=== PATIENT | male | born 1950 | race Caucasian/White ===

== ENCOUNTER 2017-04-28 09:31 | Inpatient (IN) | payer OTHER, MEDICARE ==
[~2017-04-28] VITALS: Ht 177.8 cm; Wt 81.6 kg
[~2017-04-28 09:31] MED LIST: ACIDOPHILUS1 CAP PO; AMARYL2 M1 PO; ASPIRIN EC81 M1 PO; ATIVAN0.5 M1 PO; ATORVASTATIN CA10 MG PO; COLACE100 MG PO; PERCOCET 325 MG1 TA2 PO; PERCOCET 5-3251 EACH PO; PLAVIX 75MG TAB75 MG PO; SERTRALINE HYDR50 MG PO; VANCOMYCIN HC1000 MG
--- NOTE | 2017-04-28 09:49 | NUR ---
GERALD FROM HOME, CALLED 911 THIS AM, PT "WAS NOT ACTING RIGHT". PER EMS/ PT WAS ACTING STRANGE SINCE LAST NIGHT, SLEPT IN A DIFFERENT BEDROOM LAST NIGHT, THIS AM WAS SITTING UP ON BED STATING HE WAS WAITING FOR THE TARIFF CLERK. ACCUCHECK: ENROUTE 175. PT ARRIVES AWAKE, ALERT, ORIENTED TO NAME INITIALLY, BUT WAS THEN ABLE TO STATE HE WAS AT [facility] AND WHO THE CURRENT PRESENT AND DATE.
--- NOTE | 2017-04-28 09:56 | NUR ---
PT TO XRAY AT THIS TIME.
--- NOTE | 2017-04-28 09:57 | ED AMS/SEIZURE/WEAK/DIZZY ---
History of Present Illness General Chief Complaint: Altered Mental Status Stated Complaint: BIBA AMS Source: patient, family, old records, EMS Exam Limitations: no limitations Vital Signs & Intake/Output Vital Signs & Intake/Output Vital Signs Date Time Temp Pulse Resp B/P B/P Pulse O2 O2 Flow FiO2 Mean Ox Delivery Rate 04/28 1409 96.7 58 18 128/61 98 Room Air Room Air 04/28 1327 97.6 72 18 128/64 94 Room Air 04/28 0946 98 Room Air Room Air 04/28 0939 96.7 53 20 120/57 95 Room Air Room Air Allergies Coded Allergies: shellfish derived (UNKNOWN 07/22/16) Reconcile Medications Amlodipine (Norvasc) 2.5 MG TABLET 1 TAB PO DAILY BP (Reported) Ascorbate Calcium (Vitamin C) 500 MG TABLET 500 MG PO DAILY SUPPLEMENT ( Reported) Aspirin (Ecotrin*) 325 MG TABLET.DR 1 TAB PO DAILY HEART/BLOOD (Reported) Atorvastatin Calcium (Lipitor) 80 MG TABLET 1 TAB PO DAILY CHOLESTEROL ( Reported) Clopidogrel Bisulfate (Plavix) 75 MG TABLET 1 TAB PO DAILY BLOOD THINNER ( Reported) Cyanocobalamin (Vitamin B-12) 1,000 MCG TABLET 1 TAB PO DAILY SUPPLEMENT ( Reported) Cyclobenzaprine HCl 5 MG TABLET 5 MG PO DAILY MUSCLE RELAX (Reported) Ergocalciferol (Vitamin D2) (Vitamin D2) 50,000 UNIT CAPSULE 1 TAB PO QSUN SUPPLEMENT (Reported) Ezetimibe (Zetia) 10 MG TABLET 10 MG PO DAILY CHOLESTEROL (Reported) Ferrous Sulfate 325 MG (65 MG IRON) TABLET 1 TAB PO BID SUPPLEMENT (Reported) Furosemide 40 MG TABLET 20 MG PO DAILY HEART/CHF (Reported) Glimepiride (Amaryl) 2 MG TABLET 1.5 TAB PO DAILY DM (Reported) Lisinopril 2.5 MG TABLET 2.5 MG PO DAILY HEART (Reported) Lorazepam (Ativan) 0.5 MG TABLET 1 TAB PO BID ANXIETY (Reported) Metoprolol Tartrate 25 MG TABLET 25 MG PO DAILY HTN (Reported) Sertraline HCl 50 MG TABLET 50 MG PO DAILY DEPRESSION (Reported) Triage Note: GERALD FROM HOME, CALLED 911 THIS AM, PT "WAS NOT ACTING RIGHT". 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 ACCUCHECK: ENROUTE 175. PT ARRIVES AWAKE, ALERT, ORIENTED TO NAME INITIALLY, BUT WAS THEN ABLE TO STATE [facility] AND WHO THE CURRENT PRESENT AND DATE. Triage Nurses Notes Reviewed? yes Onset: Abrupt Duration: day(s): (1), continues in ED Timing: single episode today Injury Environment: home Severity: moderate, severe Severity Numbers: 7 No Modifying Factors: none Associated Symptoms: RIGHT SHOUDLER PAIN HPI: 66-year-old male the past medical history of muw-[id number] diabetes, cad , presents for evaluation of altered mental status. Patient was seen here proximally 10 days ago after a fall where he hit his head. Patient does take Plavix. Since the fall is been complaining of pain in his right shoulder that is worse with movement. He has not been taking any medicine for the pain. He rates the pain as a 10 out of 10. His states that since last night he's been acting "strangely". says that patient slept in a different room than usual last night and when he woke up this morning he was sitting on the edge of the bed asking for the "senior construction manager" which does not make any sense to the . Patient denies feeling confusion his only complaint is the pain in his right shoulder. He denies any chest pain, shortness of breath, abdominal pain, nausea , vomiting, diarrhea, memory loss or any other associated symptoms. Patient's reports that the patient had seen Isiah Hernandez MD related to his right shoulder last week. His errand runner is Dr. Naveen Che out of [place]. (CRISSY HOSKINS PA-C) Past History Travel History Traveled to [place] past 21 day No Medical History Any Pertinent Medical History? see below for history Neurological: GAIT ABDNORMALITY WEAKNESS Musculoskeletal: CHRONIC OSTEOMYLITIS Endocrine: diabetes Tetanus Vaccine: 04/20/17 Surgical History Surgical History: none Psychosocial History Who do you live with Spouse Services at Home Nursing What is your primary language Pakistani Tobacco Use: Quit >30 days ago ETOH Use: alcoholic, QUIT 3 YEARS AGO Illicit Drug Use: denies illicit drug use Family History Hx Contributory? No (CRISSY HOSKINS PA-C) Review of Systems Review of Systems Constitutional: Reports: no symptoms. EENTM: Reports: no symptoms. Respiratory: Reports: no symptoms. Cardiovascular: Reports: no symptoms. GI: Reports: no symptoms. Genitourinary: Reports: no symptoms. Musculoskeletal: Reports: back pain, joint pain, joint swelling, muscle pain. Skin: Reports: no symptoms. Neurological/Psychological: Reports: no symptoms. Hematologic/Endocrine: Reports: no symptoms. Immunologic/Allergic: Reports: no symptoms. All Other Systems: Reviewed and Negative (AIDEE FAUST,CRISSY) Physical Exam Physical Exam General Appearance: well developed/nourished, no apparent distress, alert, awake , anxious Extremities: evidence of injury, limited range of motion, right shoudler: there are superfical abrasions loctaed on the posterior rt scapula. rom of the rt shoulder is reduced due to pain. pain with palpation of ac joint. neurovascular supply to the rt arm is intact. Comments: General: Hemodynamically stable. Afebrile. Well-developed well-nourished person in no acute distress. Head: Atraumatic, normocephalic Eyes: EOMI bilaterally, PERRLA, conjunctiva are not injected, no discharge, no nystagmus, fundus grossly normal bilaterally Nose: Atraumatic, no rhinorrhea, mucosa is not erythematous, no epistaxis. Sinuses are non-tender Ears: TM pearly herrmann color bilaterally, external canal is clear, no discharge, hearing is normal Mouth: Appropriate dentition, no gingival bleeding, moist mucus membranes, no oral lesions, tonsils not erythematous or enlarged and free of exudate. Uvula rises midline. Neck: Supple, full active ROM, no lymphadenopathy, no midline tenderness to palpation, no thyromegaly, no tracheal deviation. Back: Non-tender, full active ROM, no scoliosis, no CVA tenderness Cardiovascular: regular rate and rhythm, no murmurs, rubs, or gallops. No JVD Respiratory: Chest is nontender. Regular respiratory rate and effort. No accessory muscle use. Lungs clear to auscultation bilaterally. Abdomen: Soft, non-tender, non-distended, no organomegaly. No rebound tenderness or guarding. Normoactive bowel sounds. Neuro: No confusion. Motor and sensory function is intact. Appropriate gait. Cerebellar function intact. Skin: Warm and dry. Appropriate turgor. No lesions or bruising. No appreciable rash on exposed skin. Core Measures ACS in differential dx? Yes ASA ordered for poss ACS? Yes-ordered CVA/TIA Diagnosis: No Severe Sepsis Present: No Septic Shock Present: No (CRISSY HOSKINS PA-C) Progress Differential Diagnosis: arrythmia, anemia, benign positional vertigo, CVA/stroke , dehydration, drug intoxication, electrolyte imbalance, intracranial Hem., intracranial mass/tumor, migraine BECK, pneumonia, postural hypotension, presyncope, post-traumatic vertigo, sepsis, subarachnoid Hem., UTI/pyelo Plan of Care: Orders Procedure Date/time Status CULTURE,URINE 04/28 1513 Active BLOOD CULTURE 04/28 1513 Active US-EXT BILAT VENOUS DOPPLER 04/28 1508 Active Patient Data 04/28 1333 Active TROPONIN LEVEL 04/28 1331 Complete AMMONIA 04/28 1212 Complete Admit to inpatient 04/28 1202 Active Telemetry/Colorist 04/28 1202 Active MAGNESIUM 04/28 1030 Complete URINALYSIS 04/28 0950 Complete TROPONIN LEVEL 04/28 0950 Complete PARTIAL THROMBOPLASTIN TIME 04/28 0950 Complete PROTHROMBIN TIME 04/28 0950 Complete C-REACTIVE PROTEIN 04/28 0950 Complete COMPREHENSIVE METABOLIC PANEL 04/28 0950 Complete CBC WITHOUT DIFFERENTIAL 04/28 0950 Complete B-TYPE NATRIURETIC PEP (BNP) 04/28 0950 Complete EKG 04/28 0950 Active Current Medications Sig/Salome Start time Last Medication Dose Stop Time Status Admin Sodium Polystyrene 60 ML ONCE ONE 04/28 1515 AC Sulfonate 04/28 1516 (Kayexalate) Laboratory Tests 04/28/17 1400: Urine Color YEL, Urine Clarity CLEAR, Urine pH 5.5, Ur Specific [place] 1.025, Urine Protein TRACE H, Urine Ketones NEG, Urine Nitrite NEG, Urine Bilirubin NEG, Urine Urobilinogen 0.2, Ur Leukocyte Esterase NEG, Ur Microscopic SEDIMENT EXAMINED, Urine WBC 1-3 H, Urine Mucus FEW, Urine Hemoglobin NEG, Urine Glucose NEG 04/28/17 1337: Troponin I 0.76 *H 04/28/17 1223: Ammonia 10 04/28/17 1030: Anion Gap 14, Estimated GFR 24 L, BUN/Creatinine Ratio 28.5 H, Glucose 123 H, Calcium 9.4, Magnesium 2.7 H, Total Bilirubin 0.6, AST 14 L, ALT 30, Alkaline Phosphatase 71, Troponin I 0.73 *H, C-Reactive Prot, Quant 3.1 H, Pro-B- Natriuretic Pept 78975 H, Total Protein 7.7, Albumin 4.3, Globulin 3.4, Albumin /Globulin Ratio 1.3, CBC w Diff NO MAN DIFF REQ, RBC 3.12 L, MCV 90.8, MCH 28.9 , RDW 19.6 H, MPV 8.1, Gran % 80.7 H, Lymphocytes % 7.4 L, Monocytes % 9.1, Eosinophils % 2.5, Basophils % 0.3, Absolute Granulocytes 6.4, Absolute Lymphocytes 0.6 L, Absolute Monocytes 0.7 H, Absolute Eosinophils 0.2, Absolute Basophils 0, PUBS MCHC 31.8 L 04/28/17 0950: PT 14.5 H, INR 1.39 H, APTT 35 Microbiology 04/28 1513 URINE ROUT: Urine Culture - ORD 04/28 151 BLOOD: Blood Culture - ORD 04/28 151 BLOOD: Blood Culture - ORD 10 AM: Patient seen and evaluated. he is complaining of pain in his right shoulder. There are healing abrasions and swelling to the right shoulder. Range of motion is limited due to pain. He is neurologically intact and alert and oriented to person place time. Patient will have a workup for altered mental status including chest x-ray, urinalysis basic blood work EKG. He will also have another scan of his head to rule out a delayed bleed. Patient will be monitored and we will follow up on results. 11:30 AM: Troponin back is elevated 2.73 BNP elevated to 31,000. He also has worsening renal failure with a creatinine of 2.7 increased from 1.9. Spoke with Dr. Duarte who is on-call for Dr. Rodrigues who said that the patient should be admitted to the hospitalist or whoever is on-call for the ICU. Patient has a errand runner out of [place]. Called front office administrator errand runner Dr. English for recommendations. Patient was given a dose of aspirin and Plavix. These are in his home medications but he has not yet taken them today. X-ray of the shoulder shows a cortical fracture of the acromion see on y view only. 12 AM: Spoke with Dr. English he will consult on the patient when he is admitted. Dr. siddiqui will call Gurinder Aj MD who is on-call for the ICU. (AIDEE FAUST,CRISSY) Diagnostic Imaging: Viewed by Me: Radiology Read, CT Scan. Discussed w/RAD: Radiology Read, CT Scan. Radiology Impression: PATIENT: VONNIE BUSTAMANTE PRESENT AGE: 66 PATIENT ACCOUNT NO: [id number] : 50 LOCATION: [facility] ORDERING PHYSICIAN: CRISSY HOSKINS PA-C SERVICE DATE: 04/28/17 EXAM TYPE: RAD - XRY- CHEST XRAY, PA AND LATERAL; XRY-SHOULDER COMPLETE-RIGHT EXAMINATION: XR SHOULDER , RIGHT XR CHEST CLINICAL INFORMATION: Right shoulder pain after fall one to 2 weeks ago. Cough with altered mental status. COMPARISON: Shoulder radiographs . Chest radiograph 11/24/2011. TECHNIQUE: AP and lateral views of the chest. 4 views of the right shoulder. FINDINGS: Chest: The lungs are well expanded. There is a hazy opacity throughout much of the right lung. This is more focal at the right base. There is a small right pleural effusion noted. The left lung is clear. No pneumothorax. The cardiomediastinal silhouette is mildly prominent. Degenerative changes of the spine. Likely chronic healed posterior right rib fractures. Right shoulder: Radiopaque anchors are seen in the right humeral head. No acute fracture or dislocation. Superior positioning of the humeral head in relation to the glenoid with narrowing of subacromial space suggests chronic rotator cuff disease. Likely postsurgical changes at the acromioclavicular joint. There is minimal osseous fragmentation noted at the base of the acromion, seen on the scapular Y view only. This raises suspicion for a fracture. IMPRESSION: 1. Probable cortical fracture at the base of the acromion, seen on the scapular Y view only. 2. Small right pleural effusion with basilar opacity. Initial ED EKG: normal sinus rhythm, first degree av bloack, lbbb Comments: PATIENT: VONNIE BUSTAMANTE PRESENT AGE: 66 PATIENT ACCOUNT NO: [id number] : 50 LOCATION: [facility] ORDERING PHYSICIAN: CRISSY HOSKINS PA-C SERVICE DATE: 04/28/171001 EXAM TYPE: CAT - CT HEAD WO IV CONTRAST EXAMINATION: CT HEAD WITHOUT CONTRAST CLINICAL INFORMATION: Fall 2010 days ago. On Plavix. Altered mental status. COMPARISON: 04/19/2017 TECHNIQUE: Contiguous axial imaging was performed from the skull base to vertex without intravenous contrast. DLP: 954 mGy-cm. FINDINGS: Motion limited study. There is no evidence of acute intracranial hemorrhage or territorial infarction. No abnormal mass effect or midline shift is seen. Herrmann to white matter differentiation is well preserved. No extra-axial fluid collections are identified. No hydrocephalus. Proportional prominence of the ventricles and sulcal spaces is consistent with mild volume loss. Patchy periventricular and deep white matter hypoattenuation is consistent with mild small vessel ischemic changes. No acute osseous or soft tissue abnormality. There is chronic depression of the left lamina papyracea.. The mastoid air cells and visualized portions of the paranasal sinuses are well aerated. IMPRESSION: No acute intracranial pathology. DICTATED BY: HA LYNN MD DATE/TIME DICTATED:04/28/171026 EARTH MOVING TECHNICIAN:JUHI DATE/TIME TRANSCRIBED:04/28/171026 CONFIDENTIAL, DO NOT COPY WITHOUT APPROPRIATE AUTHORIZATION. <Electronically signed in Other Vendor System> SIGNED BY: HA LYNN MD 04/28 1033 (CRISSY HOSKINS PA-C) Departure Departure Disposition: STILL A PATIENT Condition: Stable Clinical Impression Primary Impression: NSTEMI (non-ST elevated myocardial infarction) Referrals: MARY ALICE LUND MD (PCP/Family) Departure Forms: Customer Survey General Discharge Information Admission Note Spoke With: GURINDER AJ MD Documentation of Exam: Documentation of any treatments & extenuating circumstances including Concerns Regarding Discharge (functional status, medication knowledge or non-compliance, living conditions, etc.) that warrant an admission rather than observation: [ Cardiology consult, telemetry monitoring, monitoring of vital signs, serial labs , echocardiogram, IV heparin, medication adjustment, orthopedic consult,] (CRISSY HOSKINS PA-C) PA/SQL SERVER DBA DEVELOPER Co-Sign Statement Statement: ED Attending supervision documentation- x I saw and evaluated the patient. I have also reviewed all the pertinent lab results and diagnostic results. I agree with the findings and the plan of care as documented in the PA's/SQL SERVER DBA DEVELOPER's documentation. [] I have reviewed the ED Record and agree with the PA's/SQL SERVER DBA DEVELOPER's documentation. [] Additions or exceptions (if any) to the PAs/SQL SERVER DBA DEVELOPER's note and plan are summarized below: [] (NEGRO BROWN,MIRIAN)
--- NOTE | 2017-04-28 10:15 | NUR ---
PT [facility] IN RADIOLOGY FOR CXR AND CT.
--- NOTE | 2017-04-28 10:30 | RADIOLOGY REPORT ---
EXAMINATION: XR SHOULDER, RIGHT XR CHEST CLINICAL INFORMATION: Right shoulder pain after fall one to 2 weeks ago. Cough with altered mental status. COMPARISON: Shoulder radiographs 04/19/2017. Chest radiograph 11/24/2011. TECHNIQUE: AP and lateral views of the chest. 4 views of the right shoulder. FINDINGS: Chest: The lungs are well expanded. There is a hazy opacity throughout much of the right lung. This is more focal at the right base. There is a small right pleural effusion noted. The left lung is clear. No pneumothorax. The cardiomediastinal silhouette is mildly prominent. Degenerative changes of the spine. Likely chronic healed posterior right rib fractures. Right shoulder: Radiopaque anchors are seen in the right humeral head. No acute fracture or dislocation. Superior positioning of the humeral head in relation to the glenoid with narrowing of subacromial space suggests chronic rotator cuff disease. Likely postsurgical changes at the acromioclavicular joint. There is minimal osseous fragmentation noted at the base of the acromion, seen on the scapular Y view only. This raises suspicion for a fracture. IMPRESSION: 1. Probable cortical fracture at the base of the acromion, seen on the scapular Y view only. 2. Small right pleural effusion with basilar opacity.
--- NOTE | 2017-04-28 10:33 | CT SCAN REPORT ---
EXAMINATION: CT HEAD WITHOUT CONTRAST CLINICAL INFORMATION: Fall 2010 days ago. On Plavix. Altered mental status. COMPARISON: 04/19/2017 TECHNIQUE: Contiguous axial imaging was performed from the skull base to vertex without intravenous contrast. DLP: 954 mGy-cm. FINDINGS: Motion limited study. There is no evidence of acute intracranial hemorrhage or territorial infarction. No abnormal mass effect or midline shift is seen. Herrmann to white matter differentiation is well preserved. No extra-axial fluid collections are identified. No hydrocephalus. Proportional prominence of the ventricles and sulcal spaces is consistent with mild volume loss. Patchy periventricular and deep white matter hypoattenuation is consistent with mild small vessel ischemic changes. No acute osseous or soft tissue abnormality. There is chronic depression of the left lamina papyracea.. The mastoid air cells and visualized portions of the paranasal sinuses are well aerated. IMPRESSION: No acute intracranial pathology.
--- NOTE | 2017-04-28 10:40 | NUR ---
RETURNS TO ROOM FROM RADIOLOGY, REMAINS AWAKE, ALERT, ORIENTED CALM AND COOPERATIVE. REPEAT ACCUCHECK: 151, BLOODWORK SST,LAV,BLUE,TAMAYO AND PINK TOP TUBES SENT TO LAB. PT AWARE OF NEED FOR URINE SPECIMEN WHEN ABLE TO PROVIDE, CALL LIGHT WITHIN REACH, URINAL WITHIN REACH.
[2017-04-28 10:41] LABS: ABSOLUTE BASOPHIL COUNT 0 /CUMM (0.0-0.2); ABSOLUTE EOSINOPHIL COUNT 0.2 /CUMM (0.0-0.7); ABSOLUTE GRANULOCYTE CT 6.4 /CUMM (1.4-6.5); ABSOLUTE LYMPH COUNT 0.6 /CUMM (1.2-3.4); ABSOLUTE MONOCYTE COUNT 0.7 /CUMM (0.10-0.60); BASOPHIL % 0.3 % (0.0-2.0); EOSINOPHIL % 2.5 % (0-5); GRANULOCYTE % 80.7 % (42.2-75.2); HEMATOCRIT 28.4 % (42-52); MEAN CORPUSCULAR HGB 28.9 PG (27.0-31.0); MEAN CORPUSCULAR HGB CONC 31.8 G/DL (33.0-37.0); MEAN CORPUSCULAR VOLUME 90.8 FL (80.0-94.0); MEAN PLATELET VOLUME 8.1 FL (7.4-10.4); PLATELET COUNT 200 /CUMM (130-400); RBC DISTRIBUTION WIDTH 19.6 % (11.5-14.5); RED BLOOD CELL CT 3.12 /CUMM (4.70-6.10)
[2017-04-28] MEDS ORDERED: FUROSEMIDE40 M1 PO (10:53)
[2017-04-28] MEDS ORDERED: LISINOPRIL2.5 M1 PO (10:53)
[2017-04-28] MEDS ORDERED: METOPROLOL TART25 M1 PO (10:54)
[2017-04-28] MEDS ORDERED: SERTRALINE HCL50 MG PO (10:55)
[2017-04-28] MEDS ORDERED: CYCLOBENZAPRINE5 M2 PO (10:57)
[2017-04-28] MEDS ORDERED: ZETIA10 M1 PO (10:59)
[2017-04-28] MEDS ORDERED: VITAMIN D250000 UNIT PO (10:59)
[2017-04-28] MEDS ORDERED: FERROUS SULFAT325 M3 PO (11:02)
[2017-04-28] MEDS ORDERED: VITAMIN C500 M6 PO (11:03)
[2017-04-28] MEDS ORDERED: VITAMIN B122500 MC2 PO (11:06)
--- NOTE | 2017-04-28 11:14 | NUR ---
MED LIST UPDATED PER WRITTEN MED LIST PROVIDED BY .
--- NOTE | 2017-04-28 11:20 | NUR ---
CRITICAL TEST RESULTS [id number] VONNIE BUSTAMANTE 66 M TESTS AND RESULTS: TROPONIN: 0.73 Results received and read back by: ERNST LANDRY Results received date and time: 04/28/17 1120 The following provider was notified of the results, and read the results back: DR TOM Notified date and time: 04/28/17 at 1120
--- NOTE | 2017-04-28 11:21 | NUR ---
TROPONIN 0.73 REPORTED TO CRISSY GALLEGOS AND DR TOM.
--- NOTE | 2017-04-28 11:47 | NUR ---
MED WITH ASPIRIN 325MG PO AND PLAVIX 75MG PO, TOLERATED VERY WELL. PT CONTINUES TO DENY CHEST PAIN OR SOB. NAPPING COMFORTABLY AT THIS TIME.
[2017-04-28] MEDS ORDERED: ASPIRIN EC325 M2 PO (11:51)
[2017-04-28] MEDS ORDERED: VITAMIN B-121000 MC3 PO (11:52)
[2017-04-28] MEDS ORDERED: LIPITOR80 M1 PO (11:52)
[2017-04-28] MEDS ORDERED: PLAVIX75 M1 PO (11:52)
[2017-04-28] MEDS ORDERED: NORVASC2.5 M1 PO (11:57)
[2017-04-28 12:20] LABS: PT 14.5 SEC (9.4-12.5); PTT 35 SEC (25-37)
--- NOTE | 2017-04-28 12:25 | NUR ---
AMMONIA DRAWN AND SENT BY THIS [facility]
--- NOTE | 2017-04-28 13:00 | NUR ---
PT SLEEPING, EASILY AROUSABLE. PT CONTINUES TO DENY CHEST PAIN, NO COMPLAINTS AT THIS TIME.
--- NOTE | 2017-04-28 13:38 | NUR ---
REPEAT SST DRAWN AND SENT BY THIS [facility].
--- NOTE | 2017-04-28 14:34 | NUR ---
CRITICAL TEST RESULTS [id number] VONNIE BUSTAMANTE 66 M TESTS AND RESULTS: TROPONIN: 0.76 Results received and read back by: ERNST LANDRY Results received date and time: 04/28/17 1434 The following provider was notified of the results, and read the results back: DR TOM Notified date and time: 04/28/17 at 1434
--- NOTE | 2017-04-28 14:59 | NUR ---
REPORT GIVEN TO JOSE GILLETTE.
--- NOTE | 2017-04-28 16:02 | History & Physical ---
ROB BERGERON 04/28/17 1542: General Information and HPI Source of Information: patient, family Exam Limitations: confusion History of Present Illness: He is 66-year-old man with PMH of type 2 diabetes, hypertension, dyslipidemia, peripheral vascular disease status post lower extremity bypass status post amputation of the all toes of left foot and 4 toes of right foot, coronary artery disease s/p stent , nephrolithiasis status post ESWL in June 2010, history of osteomyelitis of the right foot, Staph bactremia 2/2 right middle finger osteomyelitis, history of heavy alcohol abuse, frequent falls, CKD, recent mechanical fall 1 week ago resulting in right shoulder injury, history of colonic polyps and iron deficiency anemia. HE was BIBA from home and his noticed that patient is confused this morning. 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 got concerned and called 911. Upon arrival to ER his temperature was 96.7, pulse 53, respiratory rate 20, blood pressure 120/57 oxygen saturation 95% on room air. Per ER notes patient was awake, alert and oriented. Accu-Chek was 151. His labs are significant for H&H 9/28.4, potassium 5.9, chloride 112, bicarbonate 17, BUN 77, creatinine 2.7 (baseline 1.7), troponins 0.73, CRP 3.1, proBNP 19751 , INR 1.39. CXR and shoulder x-ray showed right acromial fracture and small right pleural effusion. CT head was normal. EKG showed right bundle branch block with first-degree AV block. In ER patient was given aspirin and Plavix. Upon my evaluation patient was confused. He was complaining of right shoulder pain but denies any chest pain or discomfort, dizziness or lightheadedness, palpitations, nausea, vomiting, abdominal pain, any change in urinary or bowel habits. was at bedside. According to patient has some problems walking because of amputated toes. He had a mechanical fall 1 week ago and got some bruises on his right shoulder and abrasions on both legs. Patient smokes 1 pack per day since age of 15. Stopped drinking alcohol 3 years ago. Denies using any illicit drugs. He is on disability. Lives with his . Allergies/Medications Allergies: Coded Allergies: shellfish derived (UNKNOWN 07/22/16) Home Med list Amlodipine (Norvasc) 2.5 MG TABLET 1 TAB PO DAILY BP (Reported) Ascorbate Calcium (Vitamin C) 500 MG TABLET 500 MG PO DAILY SUPPLEMENT ( Reported) Aspirin (Ecotrin*) 325 MG TABLET.DR 1 TAB PO DAILY HEART/BLOOD (Reported) Atorvastatin Calcium (Lipitor) 80 MG TABLET 1 TAB PO DAILY CHOLESTEROL ( Reported) Clopidogrel Bisulfate (Plavix) 75 MG TABLET 1 TAB PO DAILY BLOOD THINNER ( Reported) Cyanocobalamin (Vitamin B-12) 1,000 MCG TABLET 1 TAB PO DAILY SUPPLEMENT ( Reported) Cyclobenzaprine HCl 5 MG TABLET 5 MG PO DAILY MUSCLE RELAX (Reported) Ergocalciferol (Vitamin D2) (Vitamin D2) 50,000 UNIT CAPSULE 1 TAB PO QSUN SUPPLEMENT (Reported) Ezetimibe (Zetia) 10 MG TABLET 10 MG PO DAILY CHOLESTEROL (Reported) Ferrous Sulfate 325 MG (65 MG IRON) TABLET 1 TAB PO BID SUPPLEMENT (Reported) Furosemide 40 MG TABLET 20 MG PO DAILY HEART/CHF (Reported) Glimepiride (Amaryl) 2 MG TABLET 1.5 TAB PO DAILY DM (Reported) Lisinopril 2.5 MG TABLET 2.5 MG PO DAILY HEART (Reported) Lorazepam (Ativan) 0.5 MG TABLET 1 TAB PO BID ANXIETY (Reported) Metoprolol Tartrate 25 MG TABLET 25 MG PO DAILY HTN (Reported) Sertraline HCl 50 MG TABLET 50 MG PO DAILY DEPRESSION (Reported) Past History Travel History Traveled to [place] past 21 day No Medical History Neurological: GAIT ABDNORMALITY WEAKNESS Musculoskeletal: CHRONIC OSTEOMYLITIS Endocrine: diabetes Tetanus Vaccine: 04/20/17 Surgical History Surgical History: hernia repair-inguinal, right shoulddr sx Past Family/Social History Family History Relations & Conditions if any FATHER (CAD). MOTHER (Pancreatic cancer). BROTHER (HTN). Psychosocial History Who Do You Live With? spouse Services at Home: Nursing Smoking Status: Current Everyday Smoker ETOH Use: alcoholic, QUIT 3 YEARS AGO Illicit Drug Use: denies illicit drug use Review of Systems Review of Systems Constitutional: Reports: see HPI. Exam & Diagnostic Data Last 24 Hrs of Vital Signs/I&O Vital Signs Date Time Temp Pulse Resp B/P B/P Pulse O2 O2 Flow FiO2 Mean Ox Delivery Rate 04/28 1409 96.7 58 18 128/61 98 Room Air Room Air 04/28 1327 97.6 72 18 128/64 94 Room Air 04/28 0946 98 Room Air Room Air 04/28 0939 96.7 53 20 120/57 95 Room Air Room Air Intake & Output 04/28 1600 04/28 0800 04/28 0000 Intake Total 100 Output Total 350 Balance -250 Intake, Oral 100 Output, Urine 350 Patient 176 lb Weight Weight Reported by Patient Measurement Method Physical Exam General Appearance Alert, Cooperative, No Acute Distress, confused Skin right shoulder bruises HEENT dry mucous membrabes Cardiovascular Regular Rate, systolic murmur Lungs right basal crackles Abdomen Normal Bowel Sounds, Soft, No Tenderness Neurological Normal Speech, Strength at 5/5 X4 Ext, Sensation Intact, Cranial Nerves 3-12 NL Extremities b/l toe amputation, B/L lower ext swelling 1+, abrasions on both knees L>R. left LE is warm and slightly tender. +ve erythema. Right leg with slight vasculitic rash. Last 24 Hrs of Labs/Sadi: Laboratory Tests 04/28/17 1400: Urine Color YEL, Urine Clarity CLEAR, Urine pH 5.5, Ur Specific [place] 1.025, Urine Protein TRACE H, Urine Ketones NEG, Urine Nitrite NEG, Urine Bilirubin NEG, Urine Urobilinogen 0.2, Ur Leukocyte Esterase NEG, Ur Microscopic SEDIMENT EXAMINED, Urine WBC 1-3 H, Urine Mucus FEW, Urine Hemoglobin NEG, Urine Glucose NEG 04/28/17 1337: Troponin I 0.76 *H 04/28/17 1223: Ammonia 10 04/28/17 1030: Anion Gap 14, Estimated GFR 24 L, BUN/Creatinine Ratio 28.5 H, Glucose 123 H, Calcium 9.4, Magnesium 2.7 H, Total Bilirubin 0.6, AST 14 L, ALT 30, Alkaline Phosphatase 71, Troponin I 0.73 *H, C-Reactive Prot, Quant 3.1 H, Pro-B- Natriuretic Pept 65080 H, Total Protein 7.7, Albumin 4.3, Globulin 3.4, Albumin /Globulin Ratio 1.3, CBC w Diff NO MAN DIFF REQ, RBC 3.12 L, MCV 90.8, MCH 28.9 , RDW 19.6 H, MPV 8.1, Gran % 80.7 H, Lymphocytes % 7.4 L, Monocytes % 9.1, Eosinophils % 2.5, Basophils % 0.3, Absolute Granulocytes 6.4, Absolute Lymphocytes 0.6 L, Absolute Monocytes 0.7 H, Absolute Eosinophils 0.2, Absolute Basophils 0, PUBS MCHC 31.8 L 04/28/17 0950: PT 14.5 H, INR 1.39 H, APTT 35 Microbiology 04/28 151 URINE ROUT: Urine Culture - ORD 04/28 151 BLOOD: Blood Culture - ORD 04/28 151 BLOOD: Blood Culture - ORD Assessment/Plan Assessment: He is 66-year-old man with PMH of type 2 diabetes, hypertension, dyslipidemia, peripheral vascular disease status post lower extremity bypass status post amputation of the all toes of left foot and 4 toes of right foot, coronary artery disease s/p stent , nephrolithiasis status post ESWL in June 2010, history of osteomyelitis of the right foot, Staph bactremia 2/2 right middle finger osteomyelitis, history of heavy alcohol abuse, frequent falls, recent mechanical fall 1 week ago resulting in right shoulder injury, history of colonic polyps and iron deficiency anemia. PROBLEM LIST 1. Possible NSTEMI 2. Acute on chronic kidney disease likely dehydration 3. Hyperkalemia 4. Bilateral lower extremity swelling. 5. ? cellulitis or DVT of left lower ext 6. Abrasions on both LE s/p mechanical fall 1 week ago 7. Coagulopathy 8. Elevated ProBNP 9. H/O Iron deficiency anemia. H/H baseline PLAN * Telemetry monitoring * Watch for arrhythmias * Monitor electrolytes closely * Serial EKGs and troponins * Cardio consult * ? Heparin drip * Echocardiogram * Monitor kidney functions daily * Avoid nephrotoxins * Gentle hydration with 500 mL normal saline x 1 at 75 mL/hr * Be cautious with fluids * Leg elevation * Strict I's and O's * Nicotine patch * Hold amlodipine, lisinopril, metoprolol and Lasix for now * Bilateral lower extremity Doppler ultrasound to rule out DVT * Cefazolin 1 g IV 1 * Blood culture and urine cultures * Subcutaneous heparin for DVT prophylaxis * Heart healthy diet * Mild pain pathway * Full code As Ranked By This Provider Problem List: 1. NSTEMI (non-ST elevated myocardial infarction) 2. Hyperkalemia 3. GRECIA (acute kidney injury) Core Measures/Miscellaneous Acute Coronary Syndrome ACS Diagnosis: No Cerebrovascular Accident CVA/TIA Diagnosis: No Congestive Heart Failure CHF Diagnosis: No VTE (View Protocol) VTE Risk Factors: Acute medical illness, Age > 40 No Mech VTE prophylaxis d/t: No contraindications No VTE Pharm Prophylaxis d/t: No contraindications VTE Diagnosis: No VTE Type: NONE VTE Confirmed by (Test): NONE Sepsis (View Protocol) Severe Sepsis Present: No Septic Shock Septic Shock Present: No Miscellaneous Documentation Attending Case Discussed With: GURINDER AJ MD Primary Care Physician: MARY ALICE LUND MD Patient sees these Specialists cardio vascular Level of Patient Care: Telemetry Consults Needed: Consulting Specialty: Cardiology GURINDER AJ MD 04/28/17 1706: Attending MD Review Statement Attending Statement Attending MD Statement: examined this patient, discuss w/resident/PA/LOG CLERK, agreed w/resident/PA/LOG CLERK, discussed with family, reviewed EMR data (avail), discussed with nursing, discussed with case mgmt, reviewed images, amended to note Attending Assessment/Plan: Gurinder Bradshaw M.D. have examined this patient, reviewed available EMR data, personally reviewed images, discussed with resident/PA/LOG CLERK, discussed management plan with housestaff and nursing staff, discussed managment plan all of healthcare providers, discussed management plan with patient and/or family, agreed with resident/PA/LOG CLERK. The past history and parts of the chart have been autopopulated. Impression 66 year old man * elevated troponins - possible nstemi * grecia on ckd, likely pre-renal cause * elevated bnp * hyperkalemia Plan -cardiology consultation -tele monitoring -no need for icu at this time -hold acei -monitor bp and k -if creatinine does not improve check renal ultrasound and consider renal consultation DVT prophylaxis at all times TTS 40 min
--- NOTE | 2017-04-28 16:14 | NUR ---
PT BACK FROM US VIA STRETCHER.. PT WAS WITH THIS RN AND ON MONITOR DURING EXAM
--- NOTE | 2017-04-28 16:42 | NUR ---
PT MEDICATED PER EMAR
--- NOTE | 2017-04-28 17:10 | Admission Certification ---
Admission Certification Certification Statement - As attending physician, I certify that at the time of - admission, based on clinical presentation, severity of - symptoms, need for further diagnostic testing and - therapeutic interventions, and risk of adverse outcomes - without in-hospital treatment, in my clinical assessment, - this patient requires an acute hospital stay for a minimum - of two nights or longer. I have also considered psychsocial - factors such as support system, advanced age, financial - issues, cognitive issues, and failed out-patient treatments, - past re-admission history, safety of patient, and lack of - compliance as applicable. Specific rationale supporting this admission is: elevated troponins, dori
--- NOTE | 2017-04-28 17:42 | NUR ---
DR MUNGUIA AT BEDSIDE
--- NOTE | 2017-04-28 19:01 | Cons- Cardiology ---
General Information and HPI Consulting Request Date of Consult: 04/28/17 Requested By: YEFRI AJ MD History of Present Illness: Mr. Almanzar is a 66 year old male with history of diabetes, coronary artery disease s/p NE with stent placement, renal insufficiency and aortic stenosis. He was brought to the ER for evaluation of mental status changes which apparently tend to occur when the patient has worsening of his renal function. The patient cannot offer a cogent history himself. He denies any current chest discomfort although he has had some discomfort in the past intermittently. He denies any current shortness of breath although he tends to only walk a few steps at a time at his baseline. He also denies lightheadedness or palpitations. In the ER the patient was discovered to have two mildly increased troponins and a new RBBB with long first degree AV block. He did have a recent fall with a large scab on his left knee. There is some associated erythema swelling suggestive of a cellulitis. His legs are also swollen although this may not be an acute issue. Potassium is elevated to 5.9. Allergies/Medications Allergies: Coded Allergies: shellfish derived (UNKNOWN 07/22/16) Home Med List: Amlodipine (Norvasc) 2.5 MG TABLET 1 TAB PO DAILY BP (Reported) Ascorbate Calcium (Vitamin C) 500 MG TABLET 500 MG PO DAILY SUPPLEMENT ( Reported) Aspirin (Ecotrin*) 325 MG TABLET.DR 1 TAB PO DAILY HEART/BLOOD (Reported) Atorvastatin Calcium (Lipitor) 80 MG TABLET 1 TAB PO DAILY CHOLESTEROL ( Reported) Clopidogrel Bisulfate (Plavix) 75 MG TABLET 1 TAB PO DAILY BLOOD THINNER ( Reported) Cyanocobalamin (Vitamin B-12) 1,000 MCG TABLET 1 TAB PO DAILY SUPPLEMENT ( Reported) Cyclobenzaprine HCl 5 MG TABLET 5 MG PO DAILY MUSCLE RELAX (Reported) Ergocalciferol (Vitamin D2) (Vitamin D2) 50,000 UNIT CAPSULE 1 TAB PO QSUN SUPPLEMENT (Reported) Ezetimibe (Zetia) 10 MG TABLET 10 MG PO DAILY CHOLESTEROL (Reported) Ferrous Sulfate 325 MG (65 MG IRON) TABLET 1 TAB PO BID SUPPLEMENT (Reported) Furosemide 40 MG TABLET 20 MG PO DAILY HEART/CHF (Reported) Glimepiride (Amaryl) 2 MG TABLET 1.5 TAB PO DAILY DM (Reported) Lisinopril 2.5 MG TABLET 2.5 MG PO DAILY HEART (Reported) Lorazepam (Ativan) 0.5 MG TABLET 1 TAB PO BID ANXIETY (Reported) Metoprolol Tartrate 25 MG TABLET 25 MG PO DAILY HTN (Reported) Sertraline HCl 50 MG TABLET 50 MG PO DAILY DEPRESSION (Reported) Review of Systems Review of Systems: Possible right shoulder fracture. Past History Travel History Traveled to [place] past 21 day No Medical History Neurological: GAIT ABDNORMALITY WEAKNESS Cardiovascular: aortic stenosis, CAD Musculoskeletal: CHRONIC OSTEOMYLITIS Endocrine: diabetes Surgical History Surgical History: hernia repair-inguinal, right shoulddr sx Family History Relations & Conditions If Any: FATHER (CAD). MOTHER (Pancreatic cancer). BROTHER (HTN). Psychosocial History Who Do You Live With? spouse Services at Home: Nursing Smoking Status: Current Everyday Smoker ETOH Use: alcoholic, QUIT 3 YEARS AGO Illicit Drug Use: denies illicit drug use Exam & Diagnostic Data Vital Signs and I&O Vital Signs Date Time Temp Pulse Resp B/P B/P Pulse O2 O2 Flow FiO2 Mean Ox Delivery Rate 04/28 1830 96.9 69 18 125/55 96 04/28 1656 98.0 54 16 120/60 98 Room Air 04/28 1409 96.7 58 18 128/61 98 Room Air Room Air 04/28 1327 97.6 72 18 128/64 94 Room Air 04/28 0946 98 Room Air Room Air 04/28 0939 96.7 53 20 120/57 95 Room Air Room Air Intake & Output 04/28 1600 04/28 0800 04/28 0000 / 1600 04/27 0800 04/27 0000 Intake Total 100 Output Total 350 Balance -250 Intake, Oral 100 Output, Urine 350 Patient 176 lb Weight Weight Reported by Patient Measurement Method Physical Exam: General: WD/WN male in NAD; alert and oriented x 3 HEENT: NC/AT, PERRL, EOMI Neck: positive JVD, no carotid bruit Heart: RRR with 2/6 systolic murmur Lungs: no crackles or wheezing Abdomen: soft, obese, NT, +ve bowel sounds Extremities: 3+ leg edema bilaterally with excoriations on both legs. Diagnostic Data EKG Results sinus with long first degree AV block and RBBB Assessment/Plan Assessment/Plan * This patient is a very poor historian. This is not his mental status at baseline and may be due to an infectious process of his worsening renal function. consideration also needs to be given to hypoxia from a pulmonary embolism which is a condition that can also result in a new RBBB and mildly elevated troponins. Unfortunately, in the setting of his elevated creatinine we cannot obtain a CT angiogram. * Please obtain an ABG, D-dimer and lower extremity ultrasound. We will begin IV heparin which is also indicated in the setting of positive troponins from myocardial ischemia. If any of the above studies are abnormal then we should proceed with a V/Q scan to determine if there is indeed a pulmonary embolism that would indicate the need for buttermaker anticoagulation. * This patient has known coronary artery disease along with increased cardiac enzymes. This particular episode does not appear to be associated with chest pain, ischemic ST changes or a particularly large rise in cardiac enzymes. We will follow his enzymes until they peak. Obtain old records from his usual resourcing advisor. Begin IV heparin and continue aspirin and Plavix. Continue a statin. * Obtain an echocardiogram to assess his aortic stenosis. If severe, this could also cause some subendocardial ischemia associated with positive cardiac enzymes. Consult Acknowledgment - Thank you for your consult request.
--- NOTE | 2017-04-28 19:15 | NUR ---
ADMISSION NOTE: PATIENT ARRIVES TO ROOM VIA STRETCHER ON TELE MONITOR WITH ER,RN; PATIENT CALM/COOPERATIVE; UNABLE TO CORRECTLY IDENTIFY PLACE; UNABLE TO CORRECTLY IDENTIFY TIME; PATIENT IS ABLE TO PARTICIPATE IN SOME HISTORY; NO FAMILY AT BEDSIDE; PATIENT IS COMFORTED INTO BED WITH BED ALARM AND CALL GARCIA WITHIN REACH; TELE MONITOR PLACED; PATIENT HAS 1ST DEGREE HB; DENIES CP AND PAIN; VSS ON RA; WILL MONITOR
[2017-04-28 19:33] VITALS: BP 122/90
--- NOTE | 2017-04-28 23:49 | ULTRASOUND REPORT ---
EXAMINATION: US TRIPLEX OF LOWER EXTREMITIES, BILATERAL CLINICAL INFORMATION: Edema. COMPARISON: CT abdomen pelvis the urinary 2011 TECHNIQUE: Color-flow triplex imaging with spectral analysis and compression Doppler were performed on the lower extremities. FINDINGS: Respiratory variation, normal compression and augmented flow are noted throughout the lower extremities. The visualized common femoral vein, superficial femoral vein, profunda femoral vein, popliteal vein and midcalf peroneal and posterior tibial venous segments show no evidence of deep venous thrombosis. There is no Humphrey's cyst. Patient had an arterial vascular graft in the left leg and postsurgical changes incidentally noted IMPRESSION: Normal triplex scan without evidence of deep venous thrombosis involving the lower extremities.
--- NOTE | 2017-04-28 23:57 | Event Note ---
Event Note Event Note: I did the guaiac test that was negative and IV heparin was started.
[2017-04-29 04:48] LABS: PTT 77 SEC (25-37)
[2017-04-29 06:31] VITALS: BP 110/82
--- NOTE | 2017-04-29 07:23 | ECHOCARDIOGRAM REPORT ---
VONNIE BUSTAMANTE Age: 66 : 1950 Gender: M Exam Date: 04/28/2017 19:36 Exam Location: [address] Ht (in): 69 Wt (lb): 176 BSA: 1.98 BP: 120 / 60 Ordering Physician: ROB BERGERON MD Referring Physician: Roland English MD, PhD Technologist: Sanaz Gamino [facility] Room Number: [id number] Indications: MYOCARDIAL ISCHEMIA/CA Rhythm: Sinus Technical Quality: fair with contrast FINDINGS Left Ventricle Normal left ventricular size with mild left ventricular hypertrophy. Mild to moderately decreased systolic function with mid to distal and apical inferoseptal hypokinesis. Small apical thrombus is noted. Grade 2 diastolic dysfunction. The ejection fraction is visually estimated at 40%. Right Ventricle The right ventricle is mildly enlarged with normal function. Right Atrium The right atrium is mildly enlarged. Left Atrium The left atrium is markedly enlarged. The interatrial septum is intact. Mitral Valve The mitral valve is normal in structure and function. There is mild mitral regurgitation. Aortic Valve Structurally normal aortic valve with mild to moderate aortic stenosis. There is mild aortic regurgitation. Tricuspid Valve The tricuspid valve is normal in structure and function. There is moderate tricuspid regurgitation. Pulmonary artery systolic pressure is elevated to 47mmHg with a D-shaped left ventricle consistent with increased pulmonary pressures. Pulmonic Valve Structurally normal pulmonic valve. There is trace to mild pulmonic regurgitation. Pericardium Normal pericardium without effusion. No pleural effusion. Great Vessels Normal aortic root dimension. The aortic arch and great vessels are well seen and are normal. CONCLUSIONS 1. Mild to moderately decreased EF of 40% with mid to distal and apical inferoseptal severe hypokinesis. Grade 2 diastolic dysfunction is noted. A small apical thrombus is noted. 2. Mild left ventricular hypertrophy. 3. Mildly enlarged right ventricle with a D-shaped interventricular septum consistent with increased RV pressures. 4. Markedly enlarged left atrium with mildly enlarged right atrium. 5. Mild mitral regurgitation. 6. Moderate tricuspid regurgitation. 7. Moderate aortic stenosis with mild aortic regurgitation. 8. Trace to mild pulmonic regurgitation. 9. Moderate pulmonary hypertension. Roland English M.D. (Electronically Signed) Final Date: 29 April 2017 07:23 MEASUREMENTS (Male / Female) Normal Values 2D ECHO LV Diastolic Diameter PLAX 4.8 cm 4.2 - 5.9 / 3.9 - 5.3 cm LV Systolic Diameter PLAX 3.5 cm 2.1 - 4.0 cm LV Fractional Shortening PLAX 27.1 % 25 - 46 % LV Ejection Fraction 2D Teich 52.7 % IVS Diastolic Thickness 1.4 cm LVPW Diastolic Thickness 1.4 cm LV Relative Wall Thickness 0.6 RV Internal Dim ED PLAX 3.5 cm 1.9 - 3.8 cm LVOT Diameter 1.9 cm Aortic Root Diameter 2.7 cm LA Systolic Diameter LX 5.1 cm 3.0 - 4.0 / 2.7 - 3.8 cm LA Volume 107.0 cm 18 - 58 / 22 - 52 cm Ascending Aorta Diameter 3.3 cm DOPPLER AV Peak Velocity 354.0 cm/s AV Peak Gradient 50.1 mmHg AV Mean Velocity 226.0 cm/s AV Mean Gradient 24.0 mmHg AV Velocity Time Integral 74.9 cm AI Deceleration [place] 276.0 cm/s AI Peak Velocity 369.0 cm/s AI Pressure Half Time 392.0 ms AI Peak Gradient 54.5 mmHg LVOT Peak Velocity 192.0 cm/s LVOT Peak Gradient 14.7 mmHg LVOT Mean Velocity 118.0 cm/s LVOT Mean Gradient 7.0 mmHg LVOT Velocity Time Integral 35.2 cm LVOT Stroke Volume 99.8 cm AV Area Cont Eq vti 1.3 cm AV Area Cont Eq pk 1.5 cm MV Peak Velocity 130.0 cm/s MV Peak Gradient 6.8 mmHg MV Mean Velocity 57.1 cm/s MV Mean Gradient 2.0 mmHg Mitral E Point Velocity 128.0 cm/s Mitral A Point Velocity 70.1 cm/s Mitral E to A Ratio 1.8 MV PHT Velocity 135.0 cm/s MV Deceleration [place] 598.0 cm/s MV Pressure Half Time 67.7 ms MV Area PHT 3.2 cm MV Deceleration Time 151.0 ms TR Peak Velocity 304.0 cm/s TR Peak Gradient 37.0 mmHg Right Atrial Pressure 10.0 mmHg Pulmonary Artery Systolic Pressu 47.0 mmHg Right Ventricular Systolic Press 47.0 mmHg PV Peak Velocity 99.3 cm/s PV Peak Gradient 3.9 mmHg PV Mean Velocity 67.7 cm/s PV Mean Gradient 2.0 mmHg PV Velocity Time Integral 21.1 cm LV E' Lateral Velocity 11.7 cm/s Mitral E to LV E' Lateral Ratio 10.9 LV E' Septal Velocity 5.4 cm/s Mitral E to LV E' Septal Ratio 23.9
--- NOTE | 2017-04-29 08:12 | PN- Housestaff ---
ANITA DAVIS 04/29/17 0811: Subjective Follow-up For: Possible NSTEMI Possible PE Acute on CKD Hyperkalemia Review of Systems Constitutional: Reports: see HPI. Objective Last 24 Hrs of Vital Signs/I&O Vital Signs Date Time Temp Pulse Resp B/P B/P Pulse O2 O2 Flow FiO2 Mean Ox Delivery Rate 04/30 0649 98.6 84 20 90/60 92 Room Air 04/30 0000 95 Nasal 2.0L Cannula 04/29 2244 98.8 79 20 124/70 91 Room Air 04/29 1600 Room Air Intake & Output 04/30 1600 04/30 0800 04/30 0000 Intake Total 863.2 Output Total 350 Balance -350 863.2 Intake, IV 223.2 Intake, Oral 640 Output, Urine 350 Patient 180 lb Weight Weight Chair scale Measurement Method Physical Exam General Appearance: Alert, Oriented X3, Cooperative, No Acute Distress HEENT: Atraumatic, PERRLA Neck: Supple, No JVD, No thryomegaly Cardiovascular: Normal S1, Normal S2, Systolic murmur Lungs: Clear to Auscultation, Normal Air Movement Abdomen: Normal Bowel Sounds, Soft, No Tenderness Extremities: No Cyanosis, No Edema, No Tenderness/Swelling Current Medications: Current Medications Sig/Salome Start time Last Medication Dose Route Stop Time Status Admin Acetaminophen 650 MG Q6P PRN 04/28 1645 AC PO Aspirin Buffered 325 MG DAILY 04/29 1000 AC 04/30 PO 1030 Atorvastatin Calcium 80 MG 1700 04/29 1700 AC 04/29 PO 1643 Clopidogrel Bisulfate 75 MG DAILY 04/29 1000 AC 04/30 PO 1030 Ezetimibe 10 MG DAILY 04/29 1000 AC 04/30 PO 1030 Heparin Sodium 25,000 UNIT Q24H 04/28 2215 DC 04/30 (Porcine) IV 0714 Sodium Chloride 500 ML Insulin Aspart 0 TIDAC 04/28 1700 AC 04/30 SC 1214 Lorazepam 0.5 MG BID 04/28 2200 AC 04/30 PO 05/05 2159 1030 Nicotine 14 MG DAILY 04/29 1000 AC 04/30 TOP 1028 Sertraline HCl 50 MG DAILY 04/29 1000 AC 04/30 PO 1030 Sodium Chloride 500 ML .Q1M 04/28 2345 DC 04/29 IV 0011 Last 24 Hrs of Lab/Sadi Results Last 24 Hrs of Labs/Mics: Laboratory Tests 04/30/17 1300: APTT Cancelled 04/30/17 0505: Anion Gap 10, Estimated GFR 51 L, BUN/Creatinine Ratio 38.6 H, APTT 92 H, CBC w Diff NO MAN DIFF REQ, RBC 2.94 L, MCV 90.7, MCH 29.4, RDW 19.9 H, MPV 7.7, Gran % 79.5 H, Lymphocytes % 9.1 L, Monocytes % 7.6, Eosinophils % 3.7, Basophils % 0.1, Absolute Granulocytes 5.2, Absolute Lymphocytes 0.6 L, Absolute Monocytes 0.5, Absolute Eosinophils 0.2, Absolute Basophils 0, PUBS MCHC 32.4 L 04/29/17 1655: APTT 82 H Orders ECHO Findings: 04/28/17-1603 CONCLUSIONS 1. Mild to moderately decreased EF of 40% with mid to distal and apical inferoseptal severe hypokinesis. Grade 2 diastolic dysfunction is noted. A small apical thrombus is noted. 2. Mild left ventricular hypertrophy. 3. Mildly enlarged right ventricle with a D-shaped interventricular septum consistent with increased RV pressures. 4. Markedly enlarged left atrium with mildly enlarged right atrium. 5. Mild mitral regurgitation. 6. Moderate tricuspid regurgitation. 7. Moderate aortic stenosis with mild aortic regurgitation. 8. Trace to mild pulmonic regurgitation. 9. Moderate pulmonary hypertension. Assessment/Plan Assessment: A: Mr. Almanzar is a 66yo M with PMH of type 2 diabetes, hypertension, dyslipidemia, peripheral vascular disease status post lower extremity bypass status post amputation of the all toes of left foot and 4 toes of right foot, coronary artery disease s/p stent , nephrolithiasis status post ESWL in June 2010, history of osteomyelitis of the right foot, Staph bacteremia 2/2 right middle finger osteomyelitis, history of heavy alcohol abuse, frequent falls, CKD, recent mechanical fall 1 week ago resulting in right shoulder injury, history of colonic polyps and iron deficiency anemia. Presented to the ED with confusion reported by . P: 1. Possible NSTEMI History of CAD s/p stent ECHO revealed Grade 2 diastolic dysfunction, small apical thrombus, moderate aortic stenosis with mild aortic regurgitation. ECG revealed a new RBBB, evidence of increased RV pressures. Possible cath when CR improves. * Continue IV Heparin * Continue ASA, Plavix, Atorvastatin * Old records from pit recorder--Dr. Garcia requested 2. Possible PE Elevated trop (trending up) and elevated D-dimer, ECHO revealed increased RV pressures and enlarged RV * B/L lower extremity US doppler - negative * ABG - respiratory/metabolic acidosis * V/Q scan ordered * CXR revealed R side pleural effusion 3. Acute on CKD (Cr-2.7) * CR improving * Lasix held 4. Elevated BNP (53365) 5. Hyperkalemia (5.9) most likely due to GRECIA * Kayexalate given * Monitoring potassium - trending down 6. History of HTN/HLD * Continue metoprolol, amlodipine 7. History of anemia PT ordered DVT ppx-Heparin SC Code-Full Problem List: 1. GRECIA (acute kidney injury) 2. NSTEMI (non-ST elevated myocardial infarction) 3. Hyperlipidemia 4. Hyperkalemia 5. Diabetes mellitus 6. Peripheral vascular disease Pain Ratin Pain Location: N/A Pain Goal: Remain pain free Pain Plan: N/A Tomorrow's Labs & Rationales: CBC for anemia BEP for hyerchloremic hyperkalemia Consulting Request: Consulting Specialty: Cardiology CHARLES MEYERS 04/29/17 1111: Attending MD Review Statement Attending Statement Attending MD Statement: examined this patient, discuss w/resident/PA/FIELD MAP TECHNICIAN, agreed w/resident/PA/FIELD MAP TECHNICIAN, discussed with family, reviewed EMR data (avail), discussed with nursing, discussed with case mgmt, reviewed images, amended to note Attending Assessment/Plan: 66 year old male with pmh of ckd, diabetes, coronary artery disease s/p VA with stent placement, renal insufficiency and aortic stenosis. 1. elevated troponins - possible nstemi r/o PE 2. grecia on ckd, likely pre-renal cause 3. elevated bnp 4. hyperkalemia 5. left lower extremity pain 6. new RBBB 7. h/o aortic stenosis Plan -cardiology consulted, tele monitoring, iv heaprin, asa, plavix statin , b zamzam chest pain free -USG lower extremity b/l negative for dvt, f/u v/q scan. d/w cardiology when to d.c heaprin drip. -held acei, hyperkalemia improving, follow k levels. -resume lasix as per cardiology. -gi/dvt prophyalxis -full code
[2017-04-29 08:17] LABS: ABSOLUTE BASOPHIL COUNT 0 /CUMM (0.0-0.2); ABSOLUTE EOSINOPHIL COUNT 0.3 /CUMM (0.0-0.7); ABSOLUTE GRANULOCYTE CT 4.5 /CUMM (1.4-6.5); ABSOLUTE LYMPH COUNT 0.6 /CUMM (1.2-3.4); ABSOLUTE MONOCYTE COUNT 0.6 /CUMM (0.10-0.60); BASOPHIL % 0.1 % (0.0-2.0); EOSINOPHIL % 4.4 % (0-5); GRANULOCYTE % 75.5 % (42.2-75.2); HEMATOCRIT 25.5 % (42-52); MEAN CORPUSCULAR HGB 29.3 PG (27.0-31.0); MEAN CORPUSCULAR HGB CONC 32.2 G/DL (33.0-37.0); MEAN CORPUSCULAR VOLUME 91.1 FL (80.0-94.0); MEAN PLATELET VOLUME 8.3 FL (7.4-10.4); PLATELET COUNT 161 /CUMM (130-400); RBC DISTRIBUTION WIDTH 19.9 % (11.5-14.5)
--- NOTE | 2017-04-29 09:20 | PN- Housestaff ---
Assessment/Plan Consulting Request: Consulting Specialty: Cardiology
--- NOTE | 2017-04-29 14:11 | PN- Cardiology ---
Subjective Subjective: * Patient is doing better. He denies chest discomfort or shortness of breath and is not lightheaded, * Leg swelling has lessened. * D-dimer is elevated with evidence of hypoxia. In addition, the echo showed increased RV pressures with an enlarged RV. * creatinine is improved. Mildly improved potassium. * worsening anemia * mildly elevated troponin without a typical rise and fall Objective Vital Signs and I&Os Vital Signs Date Time Temp Pulse Resp B/P B/P Pulse O2 O2 Flow FiO2 Mean Ox Delivery Rate 04/29 08 96 Nasal 2.0L Cannula 04/29 0631 98.2 70 20 110/82 96 04/29 0425 98 Nasal 2.0L Cannula 04/28 1933 98.0 57 16 122/90 98 Room Air 04/28 1830 96.9 69 18 125/55 96 04/28 1656 98.0 54 16 120/60 98 Room Air 04/28 1409 96.7 58 18 128/61 98 Room Air Room Air Intake & Output 04/29 1600 04/29 0800 04/29 0000 04/28 1600 04/28 0800 04/28 0000 Intake Total 578 240 100 Output Total 700 300 350 Balance -122 -60 -250 Intake, IV 458 Intake, Oral 120 240 100 Output, Urine 700 300 350 Patient 183 lb 181 lb 176 lb Weight Weight Chair scale Chair scale Reported by Patient Measurement Method Physical Exam: General: WD/WN male in NAD; alert and oriented x 3 Neck: positive JVD, no carotid bruit Heart: RRR with 2/6 systolic murmur Lungs: no crackles or wheezing Extremities: 2+ leg edema bilaterally Assessment/Plan Assessment/Plan * This patient is more lucid today and is free of any complaints. He denies both chest discomfort and shortness of breath while at rest. The patient has clear lungs with decreased pO2, elevated D-dimer, a new RBBB, evidence of increased RV pressures and troponin that does not exhibit the classic rise and fall characteristic of an RI. I suspect he has a PE and would treat for this. In consideration of his decreased H/H, it is reasonable to confirm this diagnosis via a V/Q scan however. He should also have a chest X-ray. * Continue IV heparin for now which is also indicated in the setting of positive troponins from myocardial ischemia. Apical thrombus is suspected on his echo along with a regional wall motion abnormality. This is another indication for coumadin therapy. * This patient has known coronary artery disease along with increased cardiac enzymes. This particular episode does not appear to be associated with chest pain, ischemic ST changes or a particularly large rise in cardiac enzymes. We will follow his enzymes until they peak. 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 Continue aspirin and Plavix. Continue a statin. Continue telemetry? Yes
[2017-04-29 14:44] VITALS: BP 120/64
--- NOTE | 2017-04-29 16:31 | NUCLEAR MEDICINE REPORT ---
Indication: Hypoxemia EXAMINATION: Ventilation/perfusion lung study. 7.7 mCi xenon-133 aerosol and 3.4 mCi technetium MAA intravenous. Images obtained over the lung ley. FINDINGS: The left lung ventilation is normal. Comparison chest x-ray same day. Probable effusion on the right There is moderate to markedly depressed ventilation of the right lung. On the perfusion images there is only mildly decreased perfusion to the right lung. Most noted on the posterior study. This may well be due to fluid. The perfusion to left lung is within normal limits. Mildly heterogeneous areas but no segmental defect. IMPRESSION: Low probability for pulmonary embolism.
--- NOTE | 2017-04-29 17:26 | Cons- Neurology ---
General Information and HPI Consulting Request Date of Consult: 04/29/17 Requested By: YEFRI AJ MD Reason for Consult: Fall and confusion Source of Information: patient, family, old records Exam Limitations: no limitations History of Present Illness: This is 66-year-old right-handed man with PMH of type 2 diabetes, hypertension, dyslipidemia, peripheral vascular disease status post lower extremity bypass and post amputation of the all toes of left foot and 4 toes of right foot, coronary artery disease s/p stent , history of heavy alcohol abuse, frequent falls, CKD, and recent mechanical fall 1 week ago resulting in right shoulder injury, He was BIBA from home after his noticed that patient is confused this morning. According to he slept well last night but in the morning he was sitting at the edge of the bed saying that he is waiting for his manager child. got concerned and called 911. Upon arrival to ER his temperature was 96.7, pulse 53, respiratory rate 20, blood pressure 120/57 oxygen saturation 95% on room air. Per ER notes patient was awake, alert and oriented. Accu-Chek was 151. His labs are significant for H&H 9/28.4, potassium 5.9, chloride 112, bicarbonate 17, BUN 77, creatinine 2.7 (baseline 1.7), troponins 0.73, CRP 3.1, proBNP 45488 , INR 1.39. CXR and shoulder x-ray showed right acromial fracture and small right pleural effusion. CT head was normal. EKG showed right bundle branch block with first-degree AV block. In ER patient was given aspirin and Plavix. The patient is otherwise poor historian and could not provide much more history. Does deny however that his falls do not involve any dizziness or loss of consciousness but rather her just mechanical falls secondary to his chronic imbalance. No other focal deficits. Allergies/Medications Allergies: Coded Allergies: shellfish derived (UNKNOWN 07/22/16) Home Med List: Amlodipine (Norvasc) 2.5 MG TABLET 1 TAB PO DAILY BP (Reported) Ascorbate Calcium (Vitamin C) 500 MG TABLET 500 MG PO DAILY SUPPLEMENT ( Reported) Aspirin (Ecotrin*) 325 MG TABLET.DR 1 TAB PO DAILY HEART/BLOOD (Reported) Atorvastatin Calcium (Lipitor) 80 MG TABLET 1 TAB PO DAILY CHOLESTEROL ( Reported) Clopidogrel Bisulfate (Plavix) 75 MG TABLET 1 TAB PO DAILY BLOOD THINNER ( Reported) Cyanocobalamin (Vitamin B-12) 1,000 MCG TABLET 1 TAB PO DAILY SUPPLEMENT ( Reported) Cyclobenzaprine HCl 5 MG TABLET 5 MG PO DAILY MUSCLE RELAX (Reported) Ergocalciferol (Vitamin D2) (Vitamin D2) 50,000 UNIT CAPSULE 1 TAB PO QSUN SUPPLEMENT (Reported) Ezetimibe (Zetia) 10 MG TABLET 10 MG PO DAILY CHOLESTEROL (Reported) Ferrous Sulfate 325 MG (65 MG IRON) TABLET 1 TAB PO BID SUPPLEMENT (Reported) Furosemide 40 MG TABLET 20 MG PO DAILY HEART/CHF (Reported) Glimepiride (Amaryl) 2 MG TABLET 1.5 TAB PO DAILY DM (Reported) Lisinopril 2.5 MG TABLET 2.5 MG PO DAILY HEART (Reported) Lorazepam (Ativan) 0.5 MG TABLET 1 TAB PO BID ANXIETY (Reported) Metoprolol Tartrate 25 MG TABLET 25 MG PO DAILY HTN (Reported) Sertraline HCl 50 MG TABLET 50 MG PO DAILY DEPRESSION (Reported) Review of Systems Review of Systems: As per HPI. Past History Travel History Traveled to [place] past 21 day No Medical History Neurological: GAIT ABDNORMALITY WEAKNESS Cardiovascular: aortic stenosis, CAD, hypertension, hyperlipidemia, PVD Renal: CKD Musculoskeletal: CHRONIC OSTEOMYLITIS LFT FOOT- TOES AMP X5 RGHT FOOT- TOES AMP X4 Endocrine: diabetes Surgical History Surgical History: hernia repair-inguinal, right shoulddr sx Family History Relations & Conditions If Any: FATHER (CAD). MOTHER (Pancreatic cancer). BROTHER (HTN). Psychosocial History Where Do You Live? Home Who Do You Live With? spouse Services at Home: Nursing Smoking Status: Current Everyday Smoker ETOH Use: alcoholic, QUIT 3 YEARS AGO Illicit Drug Use: denies illicit drug use Exam & Diagnostic Data Vital Signs and I&O Vital Signs Date Time Temp Pulse Resp B/P B/P Pulse O2 O2 Flow FiO2 Mean Ox Delivery Rate 04/29 1600 Room Air 04/29 1444 97.6 69 20 120/64 97 Room Air 04/29 0800 96 Nasal 2.0L Cannula 04/29 0631 98.2 70 20 110/82 96 04/29 0425 98 Nasal 2.0L Cannula 04/28 1933 98.0 57 16 122/90 98 Room Air 04/28 1830 96.9 69 18 125/55 96 Intake & Output 04/29 1600 04/29 0800 04/29 0000 Intake Total 900 578 240 Output Total 700 300 Balance 900 -122 -60 Intake, IV 300 458 Intake, Oral 600 120 240 Output, Urine 700 300 Patient 183 lb 181 lb Weight Weight Chair scale Chair scale Measurement Method Physical Exam: General: The patient is in no distress. Pleasant and cooperative. MSE: Alert and oriented 3. Good attention and concentration. Good short-term memory and fund of knowledge reflected through our conversation. Language is fluent with good comprehension and repetition. Cardiovascular: S1 and S2 are normal, regular rate and rhythm, and normal pedal pulses. Vision: Fundoscopic exam does not reveal any abnormalties. Visual ley are intact. Neurological: Extra ocular movements intact, EFE, face is symmetric, tongue midline, uvula raises equally in the midline, V1-V3 sensation to touch is intact and equal bilaterallty, sternocleidomastoid and trapezius are strong on both sides, muscles of mastication are strong. No dysarthria noted. Motor exam reveals no abnormality of strength. Power is 5-5 throughout the distribution distally and proximally with exception of right arm proximally due to limitation of pain secondary to her fracture in the shoulder. Sensory exam did not reveal any deficits to touch, temperature, vibration and proprioception. Reflexes are symmetric bilaterally. Cerebellar exam does not reveal any dysmetria. Rapid alternating movements are intact bilaterally. Gait deferred. Last 48 Hours of Lab Results: Laboratory Tests 04/29 04/29 04/29 1655 0636 0415 Chemistry Sodium (137 - 145 mmol/L) 143 Potassium (3.5 - 5.1 mmol/L) 5.2 H Chloride (98 - 107 mmol/L) 115 H Carbon Dioxide (22 - 30 mmol/L) 16 L Anion Gap (5 - 16) 12 BUN (9 - 20 mg/dL) 67 H Creatinine (0.7 - 1.2 mg/dL) 1.9 H Estimated GFR (>60 ml/min) 36 L BUN/Creatinine Ratio (7 - 25 %) 35.3 H Coagulation APTT (25 - 37 SEC) Pending 77 H Hematology CBC w Diff NO MAN DIFF REQ WBC (4.8 - 10.8 /CUMM) 6.0 RBC (4.70 - 6.10 /CUMM) 2.80 L Hgb (14.0 - 18.0 G/DL) 8.2 L Hct (42 - 52 %) 25.5 L MCV (80.0 - 94.0 FL) 91.1 MCH (27.0 - 31.0 PG) 29.3 RDW (11.5 - 14.5 %) 19.9 H Plt Count (130 - 400 /CUMM) 161 MPV (7.4 - 10.4 FL) 8.3 Gran % (42.2 - 75.2 %) 75.5 H Lymphocytes % (20.5 - 51.1 %) 9.7 L Monocytes % (1.7 - 9.3 %) 10.3 H Eosinophils % (0 - 5 %) 4.4 Basophils % (0.0 - 2.0 %) 0.1 Absolute Granulocytes (1.4 - 6.5 /CUMM) 4.5 Absolute Lymphocytes (1.2 - 3.4 /CUMM) 0.6 L Absolute Monocytes (0.10 - 0.60 /CUMM) 0.6 Absolute Eosinophils (0.0 - 0.7 /CUMM) 0.3 Absolute Basophils (0.0 - 0.2 /CUMM) 0 PUBS MCHC (33.0 - 37.0 G/DL) 32.2 L 04/29 04/28 04/28 0155 2155 2140 Blood Gas pH (7.35 - 7.45 PH) 7.29 *L pCO2 (35 - 45 TORR) 32 L pO2 (80 - 100 TORR) 76 L HCO3 (21 - 28 MEQ/L) 15 L ABG O2 Sat (Measured) (>96.0 %) 92.0 L P-50 (Temp Corrected) N Carboxyhemoglobin (1.5 - 5.0 %) 0.9 L O2 Concentration % R/A Temperature (97.0 - 100.0 FARH) 98.0 Chemistry Troponin I (<0.11 ng/ml) 0.90 *H Coagulation D-Dimer High Sensitivty (0 - 243 ng/ml) 467 H Miscellaneous Phlebotomy Draw Site RIGHT BRACHIAL 04/28 04/28 04/28 1843 1400 1400 Chemistry Sodium (137 - 145 mmol/L) 142 Potassium (3.5 - 5.1 mmol/L) 5.5 H Chloride (98 - 107 mmol/L) 112 H Carbon Dioxide (22 - 30 mmol/L) 17 L Anion Gap (5 - 16) 14 BUN (9 - 20 mg/dL) 73 H Creatinine (0.7 - 1.2 mg/dL) 2.5 H Estimated GFR (>60 ml/min) 26 L BUN/Creatinine Ratio (7 - 25 %) 29.2 H Troponin I (<0.11 ng/ml) 0.93 *H Urines Urine Color (YEL,AMB,STR) YEL Urine Clarity (CLEAR) CLEAR Urine pH (5.0 - 8.0) 5.5 Ur Specific [place] (1.001 - 1.035) 1.025 Urine Protein (NEG,<30 MG/DL) TRACE H Urine Ketones (NEG) NEG Urine Nitrite (NEG) NEG Urine Bilirubin (NEG) NEG Urine Urobilinogen (0.1 - 1.0 EU/dl) 0.2 Ur Leukocyte Esterase (NEG) NEG Ur Microscopic SEDIMENT EXAMINED Urine WBC (0 - 2 /HPF) 1-3 H Urine Mucus (FEW,NONE) FEW Urine Hemoglobin (NEG) NEG Urine Osmolality (300 - 1000 MOSM/KG) 449 Ur Random Creatinine (mg/dL) 142.9 Ur Random Sodium (30 - 90 mmol/L) 28 L Ur Random Potassium (mmol/L) 52.1 Fraction Sodium Excret (<1% %) 0.4 Urine Glucose (N MG/DL) NEG 04/28 04/28 04/28 1337 1223 1030 Chemistry Sodium (137 - 145 mmol/L) 143 Potassium (3.5 - 5.1 mmol/L) 5.9 H Chloride (98 - 107 mmol/L) 112 H Carbon Dioxide (22 - 30 mmol/L) 17 L Anion Gap (5 - 16) 14 BUN (9 - 20 mg/dL) 77 H Creatinine (0.7 - 1.2 mg/dL) 2.7 H Estimated GFR (>60 ml/min) 24 L BUN/Creatinine Ratio (7 - 25 %) 28.5 H Glucose (65 - 99 mg/dL) 123 H Serum Osmolality (285 - 295 MOSM/KG) 321 H Calcium (8.4 - 10.2 mg/dL) 9.4 Magnesium (1.6 - 2.3 mg/dL) 2.7 H Total Bilirubin (0.2 - 1.3 mg/dL) 0.6 AST (17 - 59 U/L) 14 L ALT (21 - 72 U/L) 30 Alkaline Phosphatase (< 127 U/L) 71 Ammonia (9 - 30 umol/L) 10 Troponin I (<0.11 ng/ml) 0.76 *H 0.73 *H C-Reactive Prot, Quant (<1.0 mg/dL) 3.1 H Vvx-V-Solpfzmuvmu Pept (<125 pg/mL) 36786 H Total Protein (6.3 - 8.2 g/dL) 7.7 Albumin (3.5 - 5.0 g/dL) 4.3 Globulin (1.9 - 4.2 gm/dL) 3.4 Albumin/Globulin Ratio (1.1 - 2.2 %) 1.3 Hematology CBC w Diff NO MAN DIFF REQ WBC (4.8 - 10.8 /CUMM) 8.0 RBC (4.70 - 6.10 /CUMM) 3.12 L Hgb (14.0 - 18.0 G/DL) 9.0 L Hct (42 - 52 %) 28.4 L MCV (80.0 - 94.0 FL) 90.8 MCH (27.0 - 31.0 PG) 28.9 RDW (11.5 - 14.5 %) 19.6 H Plt Count (130 - 400 /CUMM) 200 MPV (7.4 - 10.4 FL) 8.1 Gran % (42.2 - 75.2 %) 80.7 H Lymphocytes % (20.5 - 51.1 %) 7.4 L Monocytes % (1.7 - 9.3 %) 9.1 Eosinophils % (0 - 5 %) 2.5 Basophils % (0.0 - 2.0 %) 0.3 Absolute Granulocytes (1.4 - 6.5 /CUMM) 6.4 Absolute Lymphocytes (1.2 - 3.4 /CUMM) 0.6 L Absolute Monocytes (0.10 - 0.60 /CUMM) 0.7 H Absolute Eosinophils (0.0 - 0.7 /CUMM) 0.2 Absolute Basophils (0.0 - 0.2 /CUMM) 0 PUBS MCHC (33.0 - 37.0 G/DL) 31.8 L 07/25 0950 Coagulation PT (9.4 - 12.5 SEC) 14.5 H INR (0.90 - 1.17) 1.39 H APTT (25 - 37 SEC) 35 Imaging/Other Studies: FINDINGS: Motion limited study. There is no evidence of acute intracranial hemorrhage or territorial infarction. No abnormal mass effect or midline shift is seen. Herrmann to white matter differentiation is well preserved. No extra-axial fluid collections are identified. No hydrocephalus. Proportional prominence of the ventricles and sulcal spaces is consistent with mild volume loss. Patchy periventricular and deep white matter hypoattenuation is consistent with mild small vessel ischemic changes. No acute osseous or soft tissue abnormality. There is chronic depression of the left lamina papyracea.. The mastoid air cells and visualized portions of the paranasal sinuses are well aerated. IMPRESSION: No acute intracranial pathology. Assessment/Plan Assessment: 66-year-old man with frequent falls due to gait disorder secondary to his toe amputations in both feet. No other suggestive signs of stroke or seizure. Never passed out. His current confusional episode was likely a reflection of encephalopathy which is likely due to his multiple potential metabolic derangements or polypharmacy. No clear or significant large fiber neuropathy on exam. His main issue right now is elevated troponins and renal failure. Recommendations: No recommendations at this point. If follows continued can be evaluated further for gait disorder as an outpatient. Neurology signing off. Consult Acknowledgment - Thank you for your consult request.
--- NOTE | 2017-04-29 17:48 | RADIOLOGY REPORT ---
EXAMINATION: XR CHEST CLINICAL INFORMATION: Shortness of breath. Pleural effusions. COMPARISON: Chest x-ray 04/28/2017. TECHNIQUE: Frontal and lateral views of the chest were obtained. FINDINGS: There has been interval increase in the right pleural effusion with compared to the prior study. Adjacent lung parenchyma opacity has also increased, and developing atelectasis or consolidation cannot be excluded. The left lung is well expanded and appears clear. The cardiac silhouette is prominent, similar compared to the prior study. The central pulmonary vasculature appears normal. There are multilevel degenerative changes in the thoracic spine. IMPRESSION: 1. There has been interval increase in the right-sided pleural effusion compared the prior study, and adjacent/underlying atelectasis or consolidation cannot be excluded. 2. Stable prominent cardiac silhouette.
[2017-04-29 18:01] LABS: PTT 82 SEC (25-37)
[2017-04-29 22:44] VITALS: BP 124/70
[2017-04-30 05:41] LABS: ABSOLUTE BASOPHIL COUNT 0 /CUMM (0.0-0.2); ABSOLUTE EOSINOPHIL COUNT 0.2 /CUMM (0.0-0.7); ABSOLUTE GRANULOCYTE CT 5.2 /CUMM (1.4-6.5); ABSOLUTE LYMPH COUNT 0.6 /CUMM (1.2-3.4); ABSOLUTE MONOCYTE COUNT 0.5 /CUMM (0.10-0.60); BASOPHIL % 0.1 % (0.0-2.0); EOSINOPHIL % 3.7 % (0-5); GRANULOCYTE % 79.5 % (42.2-75.2); HEMATOCRIT 26.7 % (42-52); MEAN CORPUSCULAR HGB 29.4 PG (27.0-31.0); MEAN CORPUSCULAR HGB CONC 32.4 G/DL (33.0-37.0); MEAN CORPUSCULAR VOLUME 90.7 FL (80.0-94.0); MEAN PLATELET VOLUME 7.7 FL (7.4-10.4); PLATELET COUNT 182 /CUMM (130-400); RBC DISTRIBUTION WIDTH 19.9 % (11.5-14.5); RED BLOOD CELL CT 2.94 /CUMM (4.70-6.10); WHITE BLOOD CELL COUNT 6.6 /CUMM (4.8-10.8)
[2017-04-30 05:48] LABS: PTT 92 SEC (25-37)
[2017-04-30 06:49] VITALS: BP 90/60
--- NOTE | 2017-04-30 08:19 | PN- Student ---
Subjective Subjective: Tele Events SR: 1st degree AVB (OH=.32) 66-72, PACs Subjective: No issues overnight. Patient has continued pain 10/10 in his shoulder. Patient denies SOB, n/v, f/v. Objective Objective: Exam General: No apparent distress, alert and oriented x 3 HEENT: Atraumatic, PERRLA, EOMI Neck: Suinpple, No LAD Heart: Rregular rate and rhythm and, murmur Lungs: Clear to auscultation b/l Abdomen: No tenderness to palpation, normoactivebowel sounds Extremities: No edema (?) Current Medications Sig/Salome Start time Last Medication Dose Route Stop Time Status Admin Acetaminophen 650 MG Q6P PRN 04/28 1645 AC PO Aspirin Buffered 325 MG DAILY 04/29 1000 AC 04/30 PO 1030 Atorvastatin Calcium 80 MG 1700 04/29 1700 AC 04/29 PO 1643 Clopidogrel Bisulfate 75 MG DAILY 04/29 1000 AC 04/30 PO 1030 Ezetimibe 10 MG DAILY 04/29 1000 AC 04/30 PO 1030 Heparin Sodium 25,000 UNIT Q24H 04/28 2215 DC 04/30 (Porcine) IV 0714 Sodium Chloride 500 ML Insulin Aspart 0 TIDAC 04/28 1700 AC 04/30 SC 1214 Lorazepam 0.5 MG BID 04/28 2200 AC 04/30 PO 05/05 2159 1030 Nicotine 14 MG DAILY 04/29 1000 AC 04/30 TOP 1028 Sertraline HCl 50 MG DAILY 04/29 1000 AC 04/30 PO 1030 Sodium Chloride 500 ML .Q1M 04/28 2345 DC 04/29 IV 0011 Vital Signs Date Time Temp Pulse Resp B/P B/P Pulse O2 O2 Flow FiO2 Mean Ox Delivery Rate 04/30 0649 98.6 84 20 90/60 92 Room Air Intake & Output 04/30 1600 Intake Total Output Total Balance Patient 180 lb Weight Weight Chair scale Measurement Method Results Results: Laboratory Tests 04/30/17 1300: APTT Cancelled 04/30/17 0505: Anion Gap 10, Estimated GFR 51 L, BUN/Creatinine Ratio 38.6 H, APTT 92 H, CBC w Diff NO MAN DIFF REQ, RBC 2.94 L, MCV 90.7, MCH 29.4, RDW 19.9 H, MPV 7.7, Gran % 79.5 H, Lymphocytes % 9.1 L, Monocytes % 7.6, Eosinophils % 3.7, Basophils % 0.1, Absolute Granulocytes 5.2, Absolute Lymphocytes 0.6 L, Absolute Monocytes 0.5, Absolute Eosinophils 0.2, Absolute Basophils 0, PUBS MCHC 32.4 L 04/29/17 1655: APTT 82 H 04/29/17 0636: Anion Gap 12, Estimated GFR 36 L, BUN/Creatinine Ratio 35.3 H, CBC w Diff NO MAN DIFF REQ, RBC 2.80 L, MCV 91.1, MCH 29.3, RDW 19.9 H, MPV 8.3, Gran % 75.5 H, Lymphocytes % 9.7 L, Monocytes % 10.3 H, Eosinophils % 4.4, Basophils % 0.1, Absolute Granulocytes 4.5, Absolute Lymphocytes 0.6 L, Absolute Monocytes 0.6, Absolute Eosinophils 0.3, Absolute Basophils 0, PUBS MCHC 32.2 L 04/29/17 0415: APTT 77 H 04/29/17 0155: Troponin I 0.90 *H 04/28/17 2155: pH 7.29 *L, pCO2 32 L, pO2 76 L, HCO3 15 L, ABG O2 Sat (Measured) 92.0 L, P- 50 (Temp Corrected) N, Carboxyhemoglobin 0.9 L, O2 Concentration % R/A, Temperature 98.0, Phlebotomy Draw Site RIGHT BRACHIAL 04/28/17 2140: D-Dimer High Sensitivty 467 H 04/28/17 1843: Anion Gap 14, Estimated GFR 26 L, BUN/Creatinine Ratio 29.2 H, Troponin I 0.93 *H 04/28/17 1400: Urine Color YEL, Urine Clarity CLEAR, Urine pH 5.5, Ur Specific Stuart 1.025, Urine Protein TRACE H, Urine Ketones NEG, Urine Nitrite NEG, Urine Bilirubin NEG, Urine Urobilinogen 0.2, Ur Leukocyte Esterase NEG, Ur Microscopic SEDIMENT EXAMINED, Urine WBC 1-3 H, Urine Mucus FEW, Urine Hemoglobin NEG, Urine Glucose NEG 04/28/17 1400: Urine Osmolality 449, Ur Random Creatinine 142.9, Ur Random Sodium 28 L, Ur Random Potassium 52.1, Fraction Sodium Excret 0.4 04/28/17 1337: Troponin I 0.76 *H 04/28/17 1223: Ammonia 10 04/28/17 1030: Anion Gap 14, Estimated GFR 24 L, BUN/Creatinine Ratio 28.5 H, Glucose 123 H, Serum Osmolality 321 H, Calcium 9.4, Magnesium 2.7 H, Total Bilirubin 0.6, AST 14 L, ALT 30, Alkaline Phosphatase 71, Troponin I 0.73 *H, C-Reactive Prot, Quant 3.1 H, Gdo-U-Tzyyvwpfwsv Pept 39849 H, Total Protein 7.7, Albumin 4.3, Globulin 3.4, Albumin/Globulin Ratio 1.3, CBC w Diff NO MAN DIFF REQ, RBC 3.12 L, MCV 90.8, MCH 28.9, RDW 19.6 H, MPV 8.1, Gran % 80.7 H, Lymphocytes % 7.4 L, Monocytes % 9.1, Eosinophils % 2.5, Basophils % 0.3, Absolute Granulocytes 6.4, Absolute Lymphocytes 0.6 L, Absolute Monocytes 0.7 H, Absolute Eosinophils 0.2, Absolute Basophils 0, PUBS MCHC 31.8 L 04/28/17 0950: PT 14.5 H, INR 1.39 H, APTT 35 Microbiology 04/28 2140 BLOOD: Blood Culture - RES 04/28 1843 BLOOD: Blood Culture - RES 04/28 1400 URINE ROUT: Urine Culture - RES Assessment/Plan Assessment: Mr. Almanzar is a 66 year old male with PMH type 2 diabetes, hypertension, dyslipidemia, peripheral vascular disease status post lower extremity bypass status post amputation of the all toes of left foot and 4 toes of right foot, coronary artery disease s/p stent , nephrolithiasis status post ESWL in June 2010, history of osteomyelitis of the right foot, Staph bactremia 2/2 right middle finger osteomyelitis, history of heavy alcohol abuse, frequent falls, CKD, recent mechanical fall 1 week ago resulting in right shoulder injury , history of colonic polyps and iron deficiency anemia who was BIBA d/t confusion. Vitals: Temp: 98.6 Pulse: 84 RR: 20 BP: 90/60 O2 Sats: 92% Plan: Consfusion episode. Was seen by neurology who believe his confusion was d/t encephalopathy d/t multiple potential metabolic derangements/polypharmacy. -neuro suggests no further recommendations Elevated troponins. The patient has clear lungs with decreased pO2, elevated D- dimer, a new RBBB, evidence of increased RV pressures and troponin that does not exhibit the classic rise and fall characteristic of an NC. V/Q scan was negative r/o pulmonary embolism. Apical thrombus found on echo. Previous ECHOs were obtained, but I haven't seen them yet. Patient had a nose bleed and heparin was stopped. -heparin d/c d/t nosebleed -coumadin d/t apical thrombus -cont aspirin and plavix -cont statin Renal failure -creatinine and BUN improving -cont holding lasix Hyperkalemia. Patient was given kayexalate. Potassium is now within normal limits. Elevated BNP (36551) History of HTN/HLD -Continue metoprolol, amlodipine
--- NOTE | 2017-04-30 08:19 | PN- Housestaff ---
ANITA DAVIS 04/30/17 0818: Subjective Follow-up For: Possible NSTEMI Possible PE Acute on CKD Hyperkalemia Subjective: Patient has no complaints. No acute events overnight Review of Systems Constitutional: Reports: see HPI. Objective Last 24 Hrs of Vital Signs/I&O Vital Signs Date Time Temp Pulse Resp B/P B/P Pulse O2 O2 Flow FiO2 Mean Ox Delivery Rate 04/30 1455 98.7 90 20 132/68 97 Room Air 04/30 0649 98.6 84 20 90/60 92 Room Air 04/30 0000 95 Nasal 2.0L Cannula 04/29 2244 98.8 79 20 124/70 91 Room Air 04/29 1600 Room Air Intake & Output 04/30 1600 04/30 0800 04/30 0000 Intake Total 863.2 Output Total 350 Balance -350 863.2 Intake, IV 223.2 Intake, Oral 640 Output, Urine 350 Patient 180 lb Weight Weight Chair scale Measurement Method Physical Exam General Appearance: Alert, Oriented X3, Cooperative, No Acute Distress HEENT: Atraumatic, PERRLA, Minimal L nasal bleeding Neck: Supple, No JVD, No thryomegaly, Systolic murmur Cardiovascular: Normal S1, Normal S2 Lungs: Clear to Auscultation, Normal Air Movement Abdomen: Normal Bowel Sounds, Soft, No Tenderness Extremities: No Cyanosis, No Edema, No Tenderness/Swelling Current Medications: Current Medications Sig/Salome Start time Last Medication Dose Route Stop Time Status Admin Acetaminophen 650 MG Q6P PRN 04/28 1645 AC PO Aspirin Buffered 325 MG DAILY 04/29 1000 AC 04/30 PO 1030 Atorvastatin Calcium 80 MG 1700 04/29 1700 AC 04/29 PO 1643 Clopidogrel Bisulfate 75 MG DAILY 04/29 1000 AC 04/30 PO 1030 Ezetimibe 10 MG DAILY 04/29 1000 AC 04/30 PO 1030 Heparin Sodium 25,000 UNIT Q24H 04/28 2215 DC 04/30 (Porcine) IV 0714 Sodium Chloride 500 ML Insulin Aspart 0 TIDAC 04/28 1700 AC 04/30 SC 1214 Lorazepam 0.5 MG BID 04/28 2200 AC 04/30 PO 05/05 2159 1030 Nicotine 14 MG DAILY 04/29 1000 AC 04/30 TOP 1028 Sertraline HCl 50 MG DAILY 04/29 1000 AC 04/30 PO 1030 Sodium Chloride 500 ML .Q1M 04/28 2345 DC 04/29 IV 0011 Last 24 Hrs of Lab/Sadi Results Last 24 Hrs of Labs/Mics: Laboratory Tests 04/30/17 1300: APTT Cancelled 04/30/17 0505: Anion Gap 10, Estimated GFR 51 L, BUN/Creatinine Ratio 38.6 H, APTT 92 H, CBC w Diff NO MAN DIFF REQ, RBC 2.94 L, MCV 90.7, MCH 29.4, RDW 19.9 H, MPV 7.7, Gran % 79.5 H, Lymphocytes % 9.1 L, Monocytes % 7.6, Eosinophils % 3.7, Basophils % 0.1, Absolute Granulocytes 5.2, Absolute Lymphocytes 0.6 L, Absolute Monocytes 0.5, Absolute Eosinophils 0.2, Absolute Basophils 0, PUBS MCHC 32.4 L 04/29/17 1655: APTT 82 H Orders Radiology Findings: 04/29/17-06 NUC - LUNG SCAN (V/Q) FINDINGS: The left lung ventilation is normal. Comparison chest x-ray same day. Probable effusion on the right There is moderate to markedly depressed ventilation of the right lung. On the perfusion images there is only mildly decreased perfusion to the right lung. Most noted on the posterior study. This may well be due to fluid. The perfusion to left lung is within normal limits. Mildly heterogeneous areas but no segmental defect. IMPRESSION: Low probability for pulmonary embolism. Assessment/Plan Assessment: A: Mr. Almanzar is a 66yo M with PMH of type 2 diabetes, hypertension, dyslipidemia, peripheral vascular disease status post lower extremity bypass status post amputation of the all toes of left foot and 4 toes of right foot, coronary artery disease s/p stent , nephrolithiasis status post ESWL in June 2010, history of osteomyelitis of the right foot, Staph bacteremia 2/2 right middle finger osteomyelitis, history of heavy alcohol abuse, frequent falls, CKD, recent mechanical fall 1 week ago resulting in right shoulder injury, history of colonic polyps and iron deficiency anemia. Presented to the ED with confusion reported by . P: 1. Possible NSTEMI History of CAD s/p stent August of 2015 patient was seen by Assistant Housekeeping Manager Dr. Garcia ECHO revealed a EF 60%, concentric LV, grade 2 diastolic dysfunction mild/mod , AV insufficiency. ECHO revealed Grade 2 diastolic dysfunction, small apical thrombus, moderate aortic stenosis with mild aortic regurgitation. ECG revealed a new RBBB, evidence of increased RV pressures. Possible cath when CR improves. * Disontinue IV Heparin because of minimal L nasal bleeding (patient states he has a hx of nasal bleeding in the winter months) * Continue ASA, Plavix, Atorvastatin 2. Possible PE Elevated trop (trending up) and elevated D-dimer, ECHO revealed increased RV pressures and enlarged RV * B/L lower extremity US doppler - negative * ABG - respiratory/metabolic acidosis * V/Q scan ordered * CXR revealed R side plueral effusion 3. Acute on CKD (Cr-2.7) * CR improving * Lasix held 4. Elevated BNP (60350) 5. Hyperkalemia (5.9) most likely due to GRECIA * Kayexalate given * Monitoring potassium - trending down 6. History of HTN/HLD * Continue metoprolol, amlodipine 7. History of anemia PT ordered DVT ppx-Heparin SC Code-Full Problem List: 1. GRECIA (acute kidney injury) 2. NSTEMI (non-ST elevated myocardial infarction) 3. Hyperlipidemia 4. Hyperkalemia 5. Diabetes mellitus 6. Peripheral vascular disease Pain Ratin Pain Location: N/A Pain Goal: Remain pain free Pain Plan: N/A Tomorrow's Labs & Rationales: None Consulting Request: Consulting Specialty: Cardiology CHARLES MEYERS 04/30/17 1032: Attending MD Review Statement Attending Statement Attending MD Statement: examined this patient, discuss w/resident/PA/YARDAGE ESTIMATOR, agreed w/resident/PA/YARDAGE ESTIMATOR, discussed with family, reviewed EMR data (avail), discussed with nursing, discussed with case mgmt, reviewed images, amended to note Attending Assessment/Plan: 66 year old male with pmh of ckd, diabetes, coronary artery disease s/p [place] with stent placement, renal insufficiency and aortic stenosis. 1. elevated troponins - possible nstemi ruled out PE. 2. grecia on ckd, likely pre-renal cause improving. 3. elevated bnp 4. hyperkalemia resolved 5. left lower extremity pain 6. new RBBB 7. moderate aortic stenosis 8. Small left ventricle thrombus. 9. systolic Heart failure EF 40%, RWMA+ apical inferoseptal hypokinesis Plan -cardiology consulted, tele monitoring, iv heaprin, asa, plavix statin , b zamzam chest pain free -USG lower extremity b/l negative for dvt, low v/q scan. d/w cardiology when to d.c heaprin drip -ECHO reviewed, previous echo called cardiology office, awaiting fax records. -held acei, hyperkalemia improving, follow k levels. -resume lasix as per cardiology. -gi/dvt prophyalxis -full code. time spent>37 min
--- NOTE | 2017-04-30 08:42 | NUR ---
08:30 AM NOTIFIED BY MST PT HAD NOSE BLEED. SCANT AMOUNT OF BLOOD UPON ASSESSMENT SLOWING IN AMOUNT. DR ANITA DAVIS AT BEDSIDE FOR EVAL. OKAY TO CONTINUE HEPARIN AT THIS TIME. BLEEDING STOPPED WITH MEDIUM MANUAL PRESSURE. WILL CONTINUE TO MONITOR.
--- NOTE | 2017-04-30 12:21 | NUR ---
12:20 PM PT CONTINUES TO HAVE SLOW/INTERMITTENT EPISTAXIS AT THIS TIME. DR DUSTIN GOFF AWARE AND AT BEDSIDE FOR EVALUATION. D/C HEPARIN GTT & 13:00 PM PTT AT THIS TIME AFTER DR GOFF SPOKE WITH DR MUNGUIA. WILL CONTINUE TO MONITOR.
[2017-04-30 14:55] VITALS: BP 132/68
--- NOTE | 2017-04-30 16:25 | Event Note ---
See Addendum Event Note Event Note: Rapid response was called at 2:45 PM as patient was in confused state. Situation patient was last seen normal around 2:20 PM. At around 2:40 PM patient was found to be in confusion associated with aphasia, right-sided facial droop and right-sided weakness. The rapid response and stroke alert were activated. Background She is a 68-year-old female with past medical history significant for hypothyroidism, hypertension, hyperlipidemia, tremors, gerd admitted under surgical service for left knee replacement. She is status post a day 1 left knee replacement for osteoarthritis. Home medication includes valsartan for hypertension, atorvastatin for hyperlipidemia, famotidine for GERD, levothyroxine for hypothyroidism, primidone and propranolol for tremors. Of note patient takes baby aspirin daily. Assessment Vitals at the time of rapid response-afebrile, glucose 70, blood pressure 140/80 , respiratory rate 18, saturating at 93 on room air. On examination- She is confused, not oriented to time place and person Cgeboqub-dwjmakp-jmnxlongnr aphasia, dysarthia lungs were clear, S1-S2 normal no murmurs. Abdomen soft, bowel sounds heard Neuro exam- Right-sided facial droop. Right-sided weakness-2 over 5 right extremity and 4 over 5 left extremity Reflexes brisk Sensations intact Plan 68-year-old female with medical history significant for hypertension, hyperlipidemia, hypothyroid admitted for left knee replacement status post day 1. Reported sudden onset of confusion associated with right-sided weakness, facial droop. * EKG sinus rhythm, rate 92, no acute ST-T wave changes * CAT scan head showed There is increased density in the left middle cerebral artery at its bifurcation, which may be consistent with thrombus or calcification, new compared to the prior study. No definite territorial infarcts are demonstrated at present. This could be further evaluated with CTA of the head. * Neurology was consulted * Patient is not a candidate for TPA as she was recently operated and received eliqus. * Advised not to give eliqus * aspirin 325 mg per rectal in the context of potential for aspiration * In the context of new onset left middle cerebral artery stroke, recent surgery , feel that the patient will be better served by emergent transfer for thrombectomy
--- NOTE | 2017-04-30 17:27 | PN- Cardiology ---
Subjective Subjective: * This patient is doing better. He denies chest discomfort, shortness of breath, lightheadedness or palpitations at this time. * No evidence of a PE on his V/Q scan. * creatinine is 1.4 * epistaxis noted with moderate but stable anemia Objective Vital Signs and I&Os Vital Signs Date Time Temp Pulse Resp B/P B/P Pulse O2 O2 Flow FiO2 Mean Ox Delivery Rate 04/30 1455 98.7 90 20 132/68 97 Room Air 04/30 0649 98.6 84 20 90/60 92 Room Air 04/30 0000 95 Nasal 2.0L Cannula 04/29 2244 98.8 79 20 124/70 91 Room Air Intake & Output 04/30 1600 04/30 0800 04/30 0000 04/29 1600 04/29 0800 04/29 0000 Intake Total 792 863.2 900 578 240 Output Total 600 350 700 300 Balance 192 -350 863.2 900 -122 -60 Intake, IV 72 223.2 300 458 Intake, Oral 720 640 600 120 240 Number 1 Bowel Movements Output, Urine 600 350 700 300 Patient 180 lb 183 lb 181 lb Weight Weight Chair scale Chair scale Chair scale Measurement Method Physical Exam: General: WD/WN male in NAD; alert and oriented x 3 Neck: positive JVD, no carotid bruit Heart: RRR with 2/6 systolic murmur Lungs: no crackles or wheezing Extremities: 1+ leg edema bilaterally Assessment/Plan Assessment/Plan * This patient is alert today and is free of any complaints. He denies both chest discomfort and shortness of breath while at rest. He was ruled out for a pulmonary embolism. I would therefore be inclined to consider the enzyme rise to be related to a true MT, especially considering the patient's old records that described his prior cath results. The patient has had a known lesion that was not pursued, likely due to his renal insufficieny. I recommend a cardiac catheterization. The patient needs to think about this considering that it does put his kidneys at some risk. This risk is a bit less due to his improvement in renal function over the past couple days. * Stop IV heparin due to his epistaxis. Apical thrombus is suspected on his echo along with a regional wall motion abnormality. No coumadin for now in anticipation of a cardiac catheterization. * Continue aspirin and Plavix. Continue a statin. Continue telemetry? Yes
[2017-04-30 23:06] VITALS: BP 116/58
[2017-05-01 07:00] VITALS: BP 110/50
--- NOTE | 2017-05-01 07:13 | PN- Housestaff ---
See Addendum ANITA DAVIS 05/01/17 0713: Subjective Follow-up For: Possible NSTEMI Possible PE Acute on CKD Hyperkalemia Review of Systems Constitutional: Reports: see HPI. Objective Last 24 Hrs of Vital Signs/I&O Vital Signs Date Time Temp Pulse Resp B/P B/P Pulse O2 O2 Flow FiO2 Mean Ox Delivery Rate 05/01 0700 97.8 89 18 110/50 93 04/30 2306 98.3 95 20 116/58 94 Room Air 04/30 1455 98.7 90 20 132/68 97 Room Air Physical Exam General Appearance: Alert, Oriented X3, Cooperative, No Acute Distress HEENT: Atraumatic, PERRLA Neck: Supple, No JVD, No thryomegaly Cardiovascular: Normal S1, Normal S2, systolic murmur Lungs: Clear to Auscultation, Normal Air Movement Abdomen: Normal Bowel Sounds, Soft, No Tenderness Extremities: No Cyanosis, Normal Pulses, No Tenderness/Swelling Current Medications: Current Medications Sig/Salome Start time Last Medication Dose Route Stop Time Status Admin Acetaminophen 650 MG Q6P PRN 04/28 1645 AC PO Aspirin Buffered 325 MG DAILY 04/29 1000 AC 05/01 PO 0929 Atorvastatin Calcium 80 MG 1700 04/29 1700 AC 04/30 PO 1817 Clopidogrel Bisulfate 75 MG DAILY 04/29 1000 AC 05/01 PO 0929 Ezetimibe 10 MG DAILY 04/29 1000 AC 05/01 PO 0929 Insulin Aspart 0 TIDAC 04/28 1700 AC 04/30 SC 1214 Lorazepam 0.5 MG BID 04/28 2200 AC 05/01 PO 05/05 2159 0929 Nicotine 14 MG DAILY 04/29 1000 AC 04/30 TOP 1028 Sertraline HCl 50 MG DAILY 04/29 1000 AC 05/01 PO 0929 Last 24 Hrs of Lab/Sadi Results Last 24 Hrs of Labs/Mics: Laboratory Tests 05/01/17 0655: Anion Gap 12, Estimated GFR > 60, BUN/Creatinine Ratio 33.3 H, CBC w Diff NO MAN DIFF REQ, RBC 3.19 L, MCV 91.1, MCH 29.1, RDW 20.3 H, MPV 7.9, Gran % 84.5 H, Lymphocytes % 6.4 L, Monocytes % 6.0, Eosinophils % 2.9, Basophils % 0.2, Absolute Granulocytes 7.6 H, Absolute Lymphocytes 0.6 L, Absolute Monocytes 0.5, Absolute Eosinophils 0.3, Absolute Basophils 0, PUBS MCHC 32.0 L Assessment/Plan Assessment: A: Mr. Almanzar is a 66yo M with PMH of type 2 diabetes, hypertension, dyslipidemia, peripheral vascular disease status post lower extremity bypass status post amputation of the all toes of left foot and 4 toes of right foot, coronary artery disease s/p stent , nephrolithiasis status post ESWL in June 2010, history of osteomyelitis of the right foot, Staph bacteremia 2/2 right middle finger osteomyelitis, history of heavy alcohol abuse, frequent falls, CKD, recent mechanical fall 1 week ago resulting in right shoulder injury, history of colonic polyps and iron deficiency anemia. Presented to the ED with confusion reported by . P: 1. Possible NSTEMI History of CAD s/p stent August of 2015 patient was seen by Publication Designer Dr. Garcia ECHO revealed a EF 60%, concentric LV, grade 2 diastolic dysfunction mild/mod , AV insufficiency. ECHO revealed Grade 2 diastolic dysfunction, small apical thrombus, moderate aortic stenosis with mild aortic regurgitation. ECG revealed a new RBBB, evidence of increased RV pressures. Possible cath when CR improves. CR now stable but the patient elected to have cardiac cath done as an outpatient, an appointment was made with Dr. English's office for him. * Disontinued IV Heparin because of minimal L epistaxis (patient states he has a hx of epistaxis in the winter months) * Continue ASA, Plavix, Atorvastatin 2. Possible PE Elevated trop (trending up) and elevated D-dimer, ECHO revealed increased RV pressures and enlarged RV * B/L lower extremity US doppler - negative * ABG - respiratory/metabolic acidosis * V/Q scan neg for PE * CXR revealed R side plueral effusion 3. Acute on CKD (Cr-2.7) * CR improving * Lasix held 4. Elevated BNP (93936) 5. Hyperkalemia (5.9) most likely due to GRECIA * Kayexalate given * Monitoring potassium - trending down 6. History of HTN/HLD * Held metoprolol, amlodipine for unstable BP 7. History of anemia 8. Epistaxis - resolved Patient states he has a hx of epistaxis in the winter months * DC IV heparin PT ordered DVT ppx-Heparin SC Code-Full Problem List: 1. GRECIA (acute kidney injury) 2. NSTEMI (non-ST elevated myocardial infarction) 3. Peripheral vascular disease 4. Diabetes mellitus 5. Osteomyelitis Pain Ratin Pain Location: N/A Pain Goal: Remain pain free Pain Plan: N/A Tomorrow's Labs & Rationales: BEP to monitor hyperkalemia Consulting Request: Consulting Specialty: Cardiology CHARLES MEYERS 05/01/17 1148: Attending MD Review Statement Attending Statement Attending MD Statement: examined this patient, discuss w/resident/PA/FACTORY FOCUS TECHNICIAN, agreed w/resident/PA/FACTORY FOCUS TECHNICIAN, discussed with family, reviewed EMR data (avail), discussed with nursing, discussed with case mgmt, reviewed images, amended to note Attending Assessment/Plan: 66 year old male with pmh of ckd, diabetes, coronary artery disease s/p [place] with stent placement, renal insufficiency and aortic stenosis. Patient is chest pain free. vitals stable. 1. elevated troponins - possible nstemi ruled out PE. 2. grecia on ckd, likely pre-renal cause improved 3. elevated bnp 4. hyperkalemia resolved 5. left lower extremity pain 6. new RBBB 7. moderate aortic stenosis 8. Small left ventricle thrombus. 9. systolic Heart failure EF 40%, RWMA+ apical inferoseptal hypokinesis Plan -cardiology consulted, tele monitoring, iv heaprin, asa, plavix statin , b zamzam chest pain free -USG lower extremity b/l negative for dvt, low v/q scan. d/w cardiology heaprin drip d/c 2/2 nasal bleed. -ECHO reviewed inpatient, previous echo obtained, reviewed and d/wed patient. -held acei, hyperkalemia improved. resume at d/c. -resume lasix as per cardiology. -gi/dvt prophyalxis -full code. Patient considering cath as outpatient. Patient can be discharged home if ok with cards. Patient will be discharged on asa/plavix/statin/zamzam/steve-/ diuretics. FOLLOW UP PCP in 1 week of dc Cardiology as scheduled with Dr English.
--- NOTE | 2017-05-01 07:55 | PN- Student ---
Subjective Subjective: Tele Events: NSR/1st degree block 71-82 BBB, PAC Subjective: No events overnight. Patient had trouble sleeping for no particular reason. Patient denies pain, SOB, f/c, n/v. Objective Objective: Exam General: No apparent distress, alert and oriented x 3 HEENT: Atraumatic, PERRLA, EOMI Neck: Supple, No lymphadenopathy Heart: Regular rate and rhythm and, murmur Lungs: Clear to auscultation b/l Abdomen: No tenderness to palpation, normoactivebowel sounds Extremities: No edema Current Medications Sig/Salome Start time Last Medication Dose Route Stop Time Status Admin Acetaminophen 650 MG Q6P PRN 04/28 1645 AC PO Aspirin Buffered 325 MG DAILY 04/29 1000 AC 04/30 PO 1030 Atorvastatin Calcium 80 MG 1700 04/29 1700 AC 04/30 PO 1817 Clopidogrel Bisulfate 75 MG DAILY 04/29 1000 AC 04/30 PO 1030 Ezetimibe 10 MG DAILY 04/29 1000 AC 04/30 PO 1030 Heparin Sodium 25,000 UNIT Q24H 04/28 2215 DC 04/30 (Porcine) IV 0714 Sodium Chloride 500 ML Insulin Aspart 0 TIDAC 04/28 1700 AC 04/30 SC 1214 Lorazepam 0.5 MG BID 04/28 2200 AC 04/30 PO 05/05 2159 2236 Nicotine 14 MG DAILY 04/29 1000 AC 04/30 TOP 1028 Sertraline HCl 50 MG DAILY 04/29 1000 AC 04/30 PO 1030 Vital Signs Date Time Temp Pulse Resp B/P B/P Pulse O2 O2 Flow FiO2 Mean Ox Delivery Rate 05/01 0700 97.8 89 18 110/50 93 04/30 2306 98.3 95 20 116/58 94 Room Air 04/30 1455 98.7 90 20 132/68 97 Room Air Intake & Output 05/01 0800 05/01 0000 04/30 1600 Intake Total 792 Output Total 600 Balance 192 Intake, IV 72 Intake, Oral 720 Number 1 Bowel Movements Output, Urine 600 Patient 180 lb Weight Weight Chair scale Measurement Method Results Results: Laboratory Tests 05/01/17 0655: Sodium Pending, Potassium Pending, Chloride Pending, Carbon Dioxide Pending, Anion Gap Pending, BUN Pending, Creatinine Pending, BUN/Creatinine Ratio Pending , CBC w Diff Pending, WBC Pending, RBC Pending, Hgb Pending, Hct Pending, MCV Pending, MCH Pending, RDW Pending, Plt Count Pending, MPV Pending, PUBS MCHC Pending 04/30/17 1300: APTT Cancelled 04/30/17 0505: Anion Gap 10, Estimated GFR 51 L, BUN/Creatinine Ratio 38.6 H, APTT 92 H, CBC w Diff NO MAN DIFF REQ, RBC 2.94 L, MCV 90.7, MCH 29.4, RDW 19.9 H, MPV 7.7, Gran % 79.5 H, Lymphocytes % 9.1 L, Monocytes % 7.6, Eosinophils % 3.7, Basophils % 0.1, Absolute Granulocytes 5.2, Absolute Lymphocytes 0.6 L, Absolute Monocytes 0.5, Absolute Eosinophils 0.2, Absolute Basophils 0, PUBS MCHC 32.4 L 04/29/17 1655: APTT 82 H 04/29/17 0636: Anion Gap 12, Estimated GFR 36 L, BUN/Creatinine Ratio 35.3 H, CBC w Diff NO MAN DIFF REQ, RBC 2.80 L, MCV 91.1, MCH 29.3, RDW 19.9 H, MPV 8.3, Gran % 75.5 H, Lymphocytes % 9.7 L, Monocytes % 10.3 H, Eosinophils % 4.4, Basophils % 0.1, Absolute Granulocytes 4.5, Absolute Lymphocytes 0.6 L, Absolute Monocytes 0.6, Absolute Eosinophils 0.3, Absolute Basophils 0, PUBS MCHC 32.2 L 04/29/17 0415: APTT 77 H 04/29/17 0155: Troponin I 0.90 *H 04/28/17 2155: pH 7.29 *L, pCO2 32 L, pO2 76 L, HCO3 15 L, ABG O2 Sat (Measured) 92.0 L, P- 50 (Temp Corrected) N, Carboxyhemoglobin 0.9 L, O2 Concentration % R/A, Temperature 98.0, Phlebotomy Draw Site RIGHT BRACHIAL 04/28/17 2140: D-Dimer High Sensitivty 467 H 04/28/17 1843: Anion Gap 14, Estimated GFR 26 L, BUN/Creatinine Ratio 29.2 H, Troponin I 0.93 *H 04/28/17 1400: Urine Color YEL, Urine Clarity CLEAR, Urine pH 5.5, Ur Specific [place] 1.025, Urine Protein TRACE H, Urine Ketones NEG, Urine Nitrite NEG, Urine Bilirubin NEG, Urine Urobilinogen 0.2, Ur Leukocyte Esterase NEG, Ur Microscopic SEDIMENT EXAMINED, Urine WBC 1-3 H, Urine Mucus FEW, Urine Hemoglobin NEG, Urine Glucose NEG 04/28/17 1400: Urine Osmolality 449, Ur Random Creatinine 142.9, Ur Random Sodium 28 L, Ur Random Potassium 52.1, Fraction Sodium Excret 0.4 04/28/17 1337: Troponin I 0.76 *H 04/28/17 1223: Ammonia 10 04/28/17 1030: Anion Gap 14, Estimated GFR 24 L, BUN/Creatinine Ratio 28.5 H, Glucose 123 H, Serum Osmolality 321 H, Calcium 9.4, Magnesium 2.7 H, Total Bilirubin 0.6, AST 14 L, ALT 30, Alkaline Phosphatase 71, Troponin I 0.73 *H, C-Reactive Prot, Quant 3.1 H, [place] Pe[place] 37639 H, Total Protein 7.7, Albumin 4.3, Globulin 3.4, Albumin/Globulin Ratio 1.3, CBC w Diff NO MAN DIFF REQ, RBC 3.12 L, MCV 90.8, MCH 28.9, RDW 19.6 H, MPV 8.1, Gran % 80.7 H, Lymphocytes % 7.4 L, Monocytes % 9.1, Eosinophils % 2.5, Basophils % 0.3, Absolute Granulocytes 6.4, Absolute Lymphocytes 0.6 L, Absolute Monocytes 0.7 H, Absolute Eosinophils 0.2, Absolute Basophils 0, PUBS MCHC 31.8 L 04/28/17 0950: PT 14.5 H, INR 1.39 H, APTT 35 Microbiology 04/28 2140 BLOOD: Blood Culture - RES 04/28 1843 BLOOD: Blood Culture - RES 04/28 1400 URINE ROUT: Urine Culture - RES Assessment/Plan Assessment: Mr. Almanzar is a 66 year old male with PMH type 2 diabetes, hypertension, dyslipidemia, peripheral vascular disease status post lower extremity bypass status post amputation of the all toes of left foot and 4 toes of right foot, coronary artery disease s/p stent , nephrolithiasis status post ESWL in June 2010, history of osteomyelitis of the right foot, Staph bactremia 2/2 right middle finger osteomyelitis, history of heavy alcohol abuse, frequent falls, CKD, recent mechanical fall 1 week ago resulting in right shoulder injury , history of colonic polyps and iron deficiency anemia who was BIBA d/t confusion. Vitals Temp: 97.8 Heart rate: 89 RR: 18 BP: 110/50 Pulse Ox: 93% on RA Plan: Consfusion episode. Was seen by neurology who believe his confusion was d/t encephalopathy d/t multiple potential metabolic derangements/polypharmacy. -neuro suggests no further recommendations Elevated troponins. The patient has clear lungs with decreased pO2, elevated D- dimer, a new RBBB, evidence of increased RV pressures and troponin that does not exhibit the classic rise and fall characteristic of an ME. V/Q scan was negative r/o pulmonary embolism suggesting NSTEMI. Apical thrombus found on echo. Previous ECHOs were obtained. Patient had a nose bleed and heparin was stopped. -ECHO reviewed inpatient, previous echo obtained, reviewed and discussed with patient -cardiac cath. can occur outpatient. -heparin d/c d/t nosebleed -coumadin d/t apical thrombus -cont aspirin and plavix -cont statin Renal failure -creatinine and BUN improving -resume lasix per Cards Hyperkalemia. Patient was given kayexalate. Potassium is now within normal limits. Elevated BNP (39879) History of HTN/HLD Discharge -Patient will be discharged on aspirin, plavix, statin, b-zamzam, Bony-I, and diuretic -PCP in 1 week of dc -Cardiology in 2 weeks of dc for outpatient cath
[2017-05-01 08:32] LABS: ABSOLUTE BASOPHIL COUNT 0 /CUMM (0.0-0.2); ABSOLUTE EOSINOPHIL COUNT 0.3 /CUMM (0.0-0.7); ABSOLUTE GRANULOCYTE CT 7.6 /CUMM (1.4-6.5); ABSOLUTE LYMPH COUNT 0.6 /CUMM (1.2-3.4); ABSOLUTE MONOCYTE COUNT 0.5 /CUMM (0.10-0.60); BASOPHIL % 0.2 % (0.0-2.0); EOSINOPHIL % 2.9 % (0-5); MEAN CORPUSCULAR HGB 29.1 PG (27.0-31.0); MEAN CORPUSCULAR VOLUME 91.1 FL (80.0-94.0); MEAN PLATELET VOLUME 7.9 FL (7.4-10.4); PLATELET COUNT 210 /CUMM (130-400); RBC DISTRIBUTION WIDTH 20.3 % (11.5-14.5); RED BLOOD CELL CT 3.19 /CUMM (4.70-6.10)
--- NOTE | 2017-05-01 08:36 | Patient Discharge Instructions ---
Discharge Instructions General Discharge Information You were seen/treated for: NSTEMI Apical thrombus on echo GRECIA Elevated d-dimer You had these procedures: None Special Instructions: Follow up with your PCP within 1-2 weeks after discharge Follow up with your jet mechanic in 1 week after d/c PATIENT going for CARDIAC CATHETERISATION on 05/04/2017. f/u with cardiology iv heparin not given in the hospital because of nose bleeds in the hospital Diet Recommended Diet: Diabetic Activity Additional ACTIVITY Info: As tolerated Acute Coronary Syndrome Inclusion Criteria At DC or during hospital stay patient has or had the following: ACS DIAGNOSIS Yes Discharge Core Measures Meds if any: Prescribed or Continued at Discharge KAYLEIGH/ARB if EF <40% No Aspirin Yes Beta-Manasa Yes Statin Yes Meds if any: NOT Prescribed or Continued at Discharge No KAYLEIGH/ARB d/t Renal Failure/Azotemia Congestive Heart Failure Inclusion Criteria At DC or during hospital stay patient has or had the following: CHF DIAGNOSIS No Discharge Core Measures Meds if any: Prescribed or Continued at Discharge Meds if any: NOT Prescribed or Continued at Discharge Cerebrovascular accident Inclusion Criteria At DC or during hospital stay patient has or had the following: CVA/TIA Diagnosis No Discharge Core Measures Meds if any: Prescribed or Continued at Discharge Meds if any: NOT Prescribed or Continued at Discharge Venous thromboembolism Inclusion Criteria VTE Diagnosis No VTE Type NONE VTE Confirmed by (Test) EXT BILATERAL VENOUS DOPP Discharge Core Measures - Per Current guidelines, there needs to be overlap - treatment for the first 5 days of Warfarin therapy. - If discharged on Warfarin prior to 5 days of - overlap therapy, the patient will need to be - assessed for post discharge needs including - *Post discharge parental anticoagulation - *Warfarin and/or parental anticoagulation education - *Follow up date to check INR post discharge At least 5 days overlap therapy as Inpatient No Meds if any: Prescribed or Continued at Discharge Note: Overlap Therapy is Warfarin and Anticoagulant Meds if any: NOT Prescribed or Continued at Discharge
[2017-05-01 10:00] LABS: GRANULOCYTE % 84.5 % (42.2-75.2)
[2017-05-01] MEDS ORDERED: METOPROLOL TART25 M1 PO (10:39)
--- NOTE | 2017-05-01 13:02 | Discharge Summary ---
See Addendum Visit Information Visit Dates Admission Date: 04/28/17 Discharge Date: 05/04/2017 Hospital Course Course Attending Physician: YEFRI AJ MD Primary Care Physician: MARY ALICE LUND MD Other Care Providers: anny topete Consulting Request: Consulting Specialty: Cardiology Hospital Course: He is a 66-year-old man with PMH of type 2 diabetes, hypertension, dyslipidemia, peripheral vascular disease status post lower extremity bypass status post amputation of the all toes of left foot and 4 toes of right foot, coronary artery disease s/p stent , nephrolithiasis status post ESWL in June 2010, history of osteomyelitis of the right foot, Staph bactremia 2/2 right middle finger osteomyelitis, history of heavy alcohol abuse, frequent falls, CKD, recent mechanical fall 1 week ago resulting in right shoulder injury, history of colonic polyps and iron deficiency anemia. He was BIBA from home and his noticed that patient is confused. 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 got concerned and called 911. Upon arrival to ER his temperature was 96.7, pulse 53, respiratory rate 20, blood pressure 120/57 oxygen saturation 95% on room air. Per ER notes patient was awake, alert and oriented. Accu-Chek was 151. His labs are significant for H&H 9/28.4, potassium 5.9, chloride 112, bicarbonate 17, BUN 77, creatinine 2.7 (baseline 1.7), troponins 0.73, CRP 3.1, proBNP 83715 , INR 1.39. CXR and shoulder x-ray showed right acromial fracture and small right pleural effusion. CT head was normal. EKG showed right bundle branch block with first-degree AV block. In ER patient was given aspirin and Plavix. PROBLEM LIST 1. NSTEMI 2. Acute on chronic kidney disease from dehydration 3. Hyperkalemia 4. Bilateral lower extremity swelling. 5. Abrasions on both LE s/p mechanical fall 1 week ago 6. Elevated ProBNP 7. H/O Iron deficiency anemia. H/H baseline 1. NSTEMI Patient was brought to the emergency department after he was found confused. Troponins were elevated on admission. EKG changes were found he was in sinus rhythm, right bundle branch block, first-degree AV block. Serial troponins and EKGs were done. Troponins were trended down. No EKG changes suggestive of ST-T wave changes. He was admitted to telemetry floor for further management. He was placed on continuous telemetry monitoring. Serial troponins and EKGs were done. Lift Electrician on board. Recommended IV heparin drip for NSTEMI. Patient was on IV heparin drip for a couple of days after which IV heparin drip was discontinued because of nosebleeds. He was continued on aspirin, Plavix, Lipitor. Echocardiogram was done which showed Mild to moderately decreased systolic function with mid to distal and apical inferoseptal hypokinesis. Small apical thrombus is noted.Grade 2 diastolic dysfunction. The ejection fraction is visually estimated at 40%. Plan is to continue aspirin and Plavix. Patient needs cardiac catheterization as soon as possible. 2. Acute on chronic kidney disease Acute kidney injury most likely from dehydration. Creatinine was 2.7 on admission. He received gentle hydration after which creatinine improved 1.2. 3. Hyperkalemia Potassium was 5.9 on admission. He was asymptomatic with no EKG changes. He was on continuous telemetry monitoring. Kayexalate was given. Improved 3.8 at the time of discharge. He remained stable throughout the hospital stay. 4. Bilateral lower extremity swelling B/L lower extremity US doppler was negative for a DVT. His CXR revealed R side pleural effusion. ECHO done 04/28/17 at [facility] revealed Grade 2 diastolic dysfunction, with a small apical thrombus, moderate aortic stenosis with mild aortic regurgitation. Lower extremity swelling improved after couple of days. He was continued on Lasix. 5. Abrasions on both LE s/p mechanical fall 1 week ago 6. Elevated ProBNP (08827) Elevated proBNP on admission. Denied any chest pain, short of breath, orthopnea. He was on Lasix 20 mg at home. Lasix medication was on hold in the hospital because of acute kidney injury. Echocardiogram showed ejection fraction 40% with apical inferoseptal severe hypokinesis. Grade 2 diastolic dysfunction is noted. Patient remained stable without symptoms of heart failure. Lasix was continued at the time of discharge 7. H/O Iron deficiency anemia. H/H baseline 8. Right shoulder pain He was complaining of right shoulder pain but denied any chest pain or discomfort, dizziness or lightheadedness, palpitations, nausea, vomiting, abdominal pain, any change in urinary or bowel habits. According to patient has some problems walking because of amputated toes. He had a mechanical fall 1 week ago and got some bruises on his right shoulder and abrasions on both legs. X-rays shoulder was done-no fractures were found. Symptomatic management was given. 9. Hypertension Home medication of amlodipine lisinopril and metoprolol was on hold because of hypotension in the hospital AMLODIPINE STOPPED METOPROLOL DOSE CHANGED LISINOPRIL CONTINUE 10. Coronary artery disease Status post stent placements Continued aspirin and Plavix 11. Hyperlipidemia Continue Lipitor 80 mg daily 12. Diabetes mellitus Home medications were on hold. Placed on insulin sliding scale. 13. Anxiety Continued home medication Ativan for anxiety 14. Depression Continued home medications sertraline 15. Peripheral vascular disease status post lower extremity bypass Status post amputation of toes. Complications: none Allergies: Coded Allergies: shellfish derived (UNKNOWN 07/22/16) Significant Procedures: none Pertinent Lab Results: cxr FINDINGS: Chest: The lungs are well expanded. There is a hazy opacity throughout much of the right lung. This is more focal at the right base. There is a small right pleural effusion noted. The left lung is clear. No pneumothorax. The cardiomediastinal silhouette is mildly prominent. Degenerative changes of the spine. Likely chronic healed posterior right rib fractures. Right shoulder: Radiopaque anchors are seen in the right humeral head. No acute fracture or dislocation. Superior positioning of the humeral head in relation to the glenoid with narrowing of subacromial space suggests chronic rotator cuff disease. Likely postsurgical changes at the acromioclavicular joint. There is minimal osseous fragmentation noted at the base of the acromion, seen on the scapular Y view only. This raises suspicion for a fracture. IMPRESSION: 1. Probable cortical fracture at the base of the acromion, seen on the scapular Y view only. 2. Small right pleural effusion with basilar opacity. head ct FINDINGS: Motion limited study. There is no evidence of acute intracranial hemorrhage or territorial infarction. No abnormal mass effect or midline shift is seen. Herrmann to white matter differentiation is well preserved. No extra-axial fluid collections are identified. No hydrocephalus. Proportional prominence of the ventricles and sulcal spaces is consistent with mild volume loss. Patchy periventricular and deep white matter hypoattenuation is consistent with mild small vessel ischemic changes. No acute osseous or soft tissue abnormality. There is chronic depression of the left lamina papyracea.. The mastoid air cells and visualized portions of the paranasal sinuses are well aerated. IMPRESSION: No acute intracranial pathology. venous doppler FINDINGS: Respiratory variation, normal compression and augmented flow are noted throughout the lower extremities. The visualized common femoral vein, superficial femoral vein, profunda femoral vein, popliteal vein and midcalf peroneal and posterior tibial venous segments show no evidence of deep venous thrombosis. There is no Humphrey's cyst. Patient had an arterial vascular graft in the left leg and postsurgical changes incidentally noted IMPRESSION: Normal triplex scan without evidence of deep venous thrombosis involving the lower extremities. echo CONCLUSIONS 1. Mild to moderately decreased EF of 40% with mid to distal and apical inferoseptal severe hypokinesis. Grade 2 diastolic dysfunction is noted. A small apical thrombus is noted. 2. Mild left ventricular hypertrophy. 3. Mildly enlarged right ventricle with a D-shaped interventricular septum consistent with increased RV pressures. 4. Markedly enlarged left atrium with mildly enlarged right atrium. 5. Mild mitral regurgitation. 6. Moderate tricuspid regurgitation. 7. Moderate aortic stenosis with mild aortic regurgitation. 8. Trace to mild pulmonic regurgitation. 9. Moderate pulmonary hypertension. EXAM TYPE: NUC - LUNG SCAN (V/Q) Indication: Hypoxemia EXAMINATION: Ventilation/perfusion lung study. 7.7 mCi xenon-133 aerosol and 3.4 mCi technetium MAA intravenous. Images obtained over the lung ley. FINDINGS: The left lung ventilation is normal. Comparison chest x-ray same day. Probable effusion on the right There is moderate to markedly depressed ventilation of the right lung. On the perfusion images there is only mildly decreased perfusion to the right lung. Most noted on the posterior study. This may well be due to fluid. The perfusion to left lung is within normal limits. Mildly heterogeneous areas but no segmental defect. IMPRESSION: Low probability for pulmonary embolism. repeat cxr IMPRESSION: 1. There has been interval increase in the right-sided pleural effusion compared the prior study, and adjacent/underlying atelectasis or consolidation cannot be excluded. 2. Stable prominent cardiac silhouette. Disposition Summary Disposition Principal Diagnosis: 1. NSTEMI 2. Acute on chronic kidney disease 3. Hyperkalemia 4. Bilateral lower extremity swelling. 5. Elevated d-dimer 6. Apical thrombus on echo Additional Diagnosis: none Discharge Disposition: home health services Discharge Instructions General Discharge Information Code Status: Full Code Patient's Diet: As tolerated Patient's Activity: As tolerated Follow-Up Instructions/Appts: Follow-up with primary care physician in one to 2 weeks after discharge. follow-up with senior business development manager in 1-2 weeks after discharge Medications at Discharge Discharge Medications: Stop taking the following medications: Metoprolol Tartrate (Metoprolol Tartrate) 25 MG TABLET ORAL DAILY Qty = 90 Amlodipine (Norvasc) 2.5 MG TABLET ORAL DAILY Continue taking these medications: Lorazepam (Ativan) 0.5 MG TABLET 1 Tablet ORAL TWICE DAILY Glimepiride (Amaryl) 2 MG TABLET 1.5 Tablet ORAL DAILY Lisinopril (Lisinopril) 2.5 MG TABLET 2.5 Milligram ORAL DAILY Qty = 90 Furosemide (Furosemide) 40 MG TABLET 20 Milligram ORAL DAILY Qty = 90 Sertraline HCl (Sertraline HCl) 50 MG TABLET 50 Milligram ORAL DAILY Qty = 90 Cyclobenzaprine HCl (Cyclobenzaprine HCl) 5 MG TABLET 5 Milligram ORAL DAILY Qty = 30 Ezetimibe (Zetia) 10 MG TABLET 10 Milligram ORAL DAILY Qty = 30 Comments: Last Taken:05/04/17 Time:1000 Ergocalciferol (Vitamin D2) (Vitamin D2) 50,000 UNIT CAPSULE 1 Tablet ORAL EVERY THURSDAY Qty = 11 Ferrous Sulfate (Ferrous Sulfate) 325 MG (65 MG IRON) TABLET 1 Tablet ORAL TWICE DAILY Ascorbate Calcium (Vitamin C) 500 MG TABLET 500 Milligram ORAL DAILY Aspirin (Ecotrin*) 325 MG TABLET.DR 1 Tablet ORAL DAILY Comments: Last Taken:05/04/17 Time:1000 Atorvastatin Calcium (Lipitor) 80 MG TABLET 1 Tablet ORAL DAILY Comments: Last Taken:05/03/17 Time:1700 Clopidogrel Bisulfate (Plavix) 75 MG TABLET 1 Tablet ORAL DAILY Comments: Last Taken:05/04/17 Time:1000 Cyanocobalamin (Vitamin B-12) 1,000 MCG TABLET 1 Tablet ORAL DAILY Start taking the following new medications: Metoprolol Tartrate (Metoprolol Tartrate) 25 MG TABLET 0.5 Tablet ORAL TWICE DAILY Qty = 60 No Refills Copies To: KEVON BROWN,MARY ALICE Moss
[2017-05-01 14:34] VITALS: BP 134/60
--- NOTE | 2017-05-01 18:33 | PN- Cardiology ---
Subjective Subjective: * No chest discomfort or shortness of breath. * Sinus rhythm with first degree AV block * creatinine improved to 1.2 Objective Vital Signs and I&Os Vital Signs Date Time Temp Pulse Resp B/P B/P Pulse O2 O2 Flow FiO2 Mean Ox Delivery Rate 05/01 1434 97.9 91 20 134/60 97 Room Air 05/01 0700 97.8 89 18 110/50 93 04/30 2306 98.3 95 20 116/58 94 Room Air Intake & Output 05/01 1600 05/01 0800 05/01 0000 04/30 1600 04/30 0800 04/30 0000 Intake Total 0 792 863.2 Output Total 200 600 350 Balance -200 192 -350 863.2 Intake, IV 72 223.2 Intake, Oral 0 720 640 Number 1 Bowel Movements Output, Urine 200 600 350 Patient 180 lb 180 lb Weight Weight Chair scale Measurement Method Physical Exam: General: WD/WN male in NAD; alert and oriented x 3 Neck: positive JVD, no carotid bruit Heart: RRR with 2/6 systolic murmur Lungs: no crackles or wheezing Extremities: 1+ leg edema bilaterally Assessment/Plan Assessment/Plan * This patient is alert today and is free of any complaints. He denies both chest discomfort and shortness of breath while at rest. He has not ambulated to any significant degree. He was ruled out for a pulmonary embolism. I would therefore be inclined to consider the enzyme rise to be related to a true [place], especially considering the patient's old records that described his prior cath results. The patient has had a known lesion that was not pursued, likely due to his renal insufficieny. I recommend a cardiac catheterization. The patient now agrees to this procedure which we will pursue early next week. He needs to remain in the hospital in anticipation of this procedure. * Apical thrombus is suspected on his echo along with a regional wall motion abnormality. No coumadin for now in anticipation of a cardiac catheterization. * Continue aspirin and Plavix. Continue a statin. Continue telemetry? Yes
[2017-05-01 22:15] VITALS: BP 140/60
[2017-05-02 07:16] VITALS: BP 110/56
--- NOTE | 2017-05-02 08:32 | PN- Housestaff ---
DUSTIN CHA 05/02/17 0831: Subjective Follow-up For: NSTEMI Apical thrombus on echocardiogram Hyperkalemia Acute kidney injury-resolved Complaints: no complaints Tele-Events Since Last Visit: Patient is in sinus rhythm Subjective: Patient was seen and examined this morning. He is alert awake and oriented to time place and person. no acute events happened overnight Patient reports being tired this morning. He didnt get good sleep overnight. However he denies any chest pain, palpitations, short of breath. Reports being anxious. Denies any fever, chills, change in bladder or bowel habits. Vitals remained stable. Review of Systems Constitutional: Reports: see HPI. Objective Last 24 Hrs of Vital Signs/I&O Vital Signs Date Time Temp Pulse Resp B/P B/P Pulse O2 O2 Flow FiO2 Mean Ox Delivery Rate 05/02 0716 97.8 87 20 110/56 94 Room Air 05/01 2215 98.8 78 18 140/60 97 Room Air 05/01 1434 97.9 91 20 134/60 97 Room Air Intake & Output 05/02 1600 05/02 0800 05/02 0000 Intake Total 350 350 Output Total 650 425 Balance -300 -75 Intake, IV 0 0 Intake, Oral 350 350 Number 0 0 Bowel Movements Output, Urine 650 425 Physical Exam General Appearance: Alert, Oriented X3, Cooperative, No Acute Distress Skin: No Rashes, No Breakdown HEENT: Atraumatic, PERRLA, EOMI Neck: Supple, No JVD Lymphatic: Cervical nl Cardiovascular: Normal S1, Normal S2, No Murmurs Lungs: Normal Air Movement Abdomen: Normal Bowel Sounds, Soft, No Tenderness Vascular: Normal Pulses Current Medications: Current Medications Sig/Salome Start time Last Medication Dose Route Stop Time Status Admin Acetaminophen 650 MG Q6P PRN 04/28 1645 AC PO Aspirin Buffered 325 MG DAILY 04/29 1000 AC 05/02 PO 0932 Atorvastatin Calcium 80 MG 1700 04/29 1700 AC 05/01 PO 1645 Clopidogrel Bisulfate 75 MG DAILY 04/29 1000 AC 05/02 PO 0932 Ezetimibe 10 MG DAILY 04/29 1000 AC 05/02 PO 0932 Insulin Aspart 0 TIDAC 04/28 1700 AC 04/30 SC 1214 Lorazepam 0.5 MG BID 04/28 2200 AC 05/02 PO 05/05 2159 0932 Nicotine 14 MG DAILY 04/29 1000 AC 05/02 TOP 0932 Sertraline HCl 50 MG DAILY 04/29 1000 AC 05/02 PO 0932 Sodium Polystyrene 60 ML ONCE ONE 05/02 0945 UNVr Sulfonate PO 05/02 0946 Last 24 Hrs of Lab/Sadi Results Last 24 Hrs of Labs/Mics: Laboratory Tests 05/02/17 0702: Anion Gap 13, Estimated GFR > 60, BUN/Creatinine Ratio 29.1 H Assessment/Plan Assessment: Mr. Almanzar is a 66yo M with PMH of type 2 diabetes, hypertension, dyslipidemia, peripheral vascular disease status post lower extremity bypass status post amputation of the all toes of left foot and 4 toes of right foot, coronary artery disease s/p stent , nephrolithiasis status post ESWL in June 2010, history of osteomyelitis of the right foot, Staph bacteremia 2/2 right middle finger osteomyelitis, history of heavy alcohol abuse, frequent falls, CKD, recent mechanical fall 1 week ago resulting in right shoulder injury, history of colonic polyps and iron deficiency anemia. Presented to the ED with confusion reported by . Upon arrival to ER his temperature was 96.7, pulse 53, respiratory rate 20, blood pressure 120/57 oxygen saturation 95% on room air. Per ER notes patient was awake, alert and oriented. Accu-Chek was 151. His labs are significant for H&H 9/28.4, potassium 5.9, chloride 112, bicarbonate 17, BUN 77, creatinine 2.7 (baseline 1.7), troponins 0.73, CRP 3.1, proBNP 09557 , INR 1.39. CXR and shoulder x-ray showed right acromial fracture and small right pleural effusion. CT head was normal. EKG showed right bundle branch block with first-degree AV block. In ER patient was given aspirin and Plavix. PROBLEM LIST 1. NSTEMI 2. Acute on chronic kidney disease from dehydration 3. Hyperkalemia 4. Bilateral lower extremity swelling. 5. Abrasions on both LE s/p mechanical fall 1 week ago 6. Elevated ProBNP 7. H/O Iron deficiency anemia. H/H baseline 1. NSTEMI Patient was brought to the emergency department after he was found confused. Troponins were elevated on admission. EKG changes were found - he was in sinus rhythm, right bundle branch block, first-degree AV block. Serial troponins and EKGs were done. Troponins were trended down. No EKG changes suggestive of ST-T wave changes. He was admitted to telemetry floor for further management. He was placed on continuous telemetry monitoring. Manager Functional on board. Recommended IV heparin drip for NSTEMI. Patient was on IV heparin drip for a couple of days after which IV heparin drip was discontinued because of nosebleeds. * on aspirin, Plavix, Lipitor. 2. Apical thrombus Echocardiogram was done which showed Mild to moderately decreased systolic function with mid to distal and apical inferoseptal hypokinesis. Small apical thrombus is noted. Grade 2 diastolic dysfunction. The ejection fraction is visually estimated at 40%. * Plan is to continue aspirin and Plavix. * Patient needs cardiac catheterization as soon as possible over next week * Hold off Coumadin for now for anticipated cardiac catheterization 2. Possible PE- ruled out Elevated trop (trending up) and elevated D-dimer, ECHO revealed increased RV pressures and enlarged RV * B/L lower extremity US doppler - negative * ABG - respiratory/metabolic acidosis * V/Q scan neg for PE * CXR revealed R side plueral effusion 3. Acute on chronic kidney disease Acute kidney injury most likely from dehydration. Creatinine was 2.7 on admission. He received gentle hydration after which creatinine improved 1.1 3. Hyperkalemia Potassium was 5.9 on admission. He was asymptomatic with no EKG changes. He was on continuous telemetry monitoring. Kayexalate was given. Improving 4. Bilateral lower extremity swelling B/L lower extremity US doppler was negative for a DVT. His CXR revealed R side pleural effusion. ECHO done 04/28/17 at [place] revealed Grade 2 diastolic dysfunction, with a small apical thrombus, moderate aortic stenosis with mild aortic regurgitation. Lower extremity swelling improved after couple of days. 5. Abrasions on both LE s/p mechanical fall 1 week ago 6. Elevated ProBNP (75715) Elevated proBNP on admission. Denied any chest pain, short of breath, orthopnea. He was on Lasix 20 mg at home. Lasix medication was on hold in the hospital because of acute kidney injury. Echocardiogram showed ejection fraction 40% with apical inferoseptal severe hypokinesis. Grade 2 diastolic dysfunction is noted. Patient remained stable without symptoms of heart failure. 7. H/O Iron deficiency anemia. H/H baseline 8. Right shoulder pain He was complaining of right shoulder pain but denied any chest pain or discomfort, dizziness or lightheadedness, palpitations, nausea, vomiting, abdominal pain, any change in urinary or bowel habits. According to patient has some problems walking because of amputated toes. He had a mechanical fall 1 week ago and got some bruises on his right shoulder and abrasions on both legs. * X-rays shoulder was done-no fractures were found. S * symptomatic management was given. 9. Hypertension Home medication of amlodipine lisinopril and metoprolol was on hold because of hypotension in the hospital 10. Coronary artery disease Status post stent placements Continue aspirin and Plavix 11. Hyperlipidemia Continue Lipitor 80 mg daily 12. Diabetes mellitus Home medications were on hold. Placed on insulin sliding scale. 13. Anxiety Continue home medication Ativan for anxiety 14. Depression Continue home medications sertraline 15. Peripheral vascular disease status post lower extremity bypass Status post amputation of toes. Problem List: 1. Hyperkalemia 2. NSTEMI (non-ST elevated myocardial infarction) Pain Ratin Pain Location: n/a Pain Goal: Remain pain free Pain Plan: tylinol Tomorrow's Labs & Rationales: bep Consulting Request: Consulting Specialty: Cardiology SUSY OBRIEN MD 05/02/17 3366: Attending MD Review Statement Attending Statement Attending MD Statement: examined this patient, discuss w/resident/PA/MANAGED CARE DIRECTOR, agreed w/resident/PA/MANAGED CARE DIRECTOR, amended to note Attending Assessment/Plan: The patient was seen and discussed with house staff. Agree with the plan of care as outlined. Plan is for cardiac catheterization. Will maintain in hospital pending catheterization.
--- NOTE | 2017-05-02 12:29 | PN- Cardiology ---
Subjective Subjective: * No complaints. * sinus rhythm with first degree AV block and LBBB * creatinine 1.1 Objective Vital Signs and I&Os Vital Signs Date Time Temp Pulse Resp B/P B/P Pulse O2 O2 Flow FiO2 Mean Ox Delivery Rate 05/02 08 Room Air 05/02 0716 97.8 87 20 110/56 94 Room Air 05/01 2215 98.8 78 18 140/60 97 Room Air 05/01 1434 97.9 91 20 134/60 97 Room Air Intake & Output 05/02 1600 05/02 0805/02 0000 05/01 1600 05/01 0805/01 0000 Intake Total 350 350 0 Output Total 650 425 200 Balance -300 -75 -200 Intake, IV 0 0 Intake, Oral 350 350 0 Number 0 0 Bowel Movements Output, Urine 650 425 200 Patient 180 lb Weight Physical Exam: General: WD/WN male in NAD; alert and oriented x 3 Neck: positive JVD, no carotid bruit Heart: RRR with 2/6 systolic murmur Lungs: no crackles or wheezing Extremities: 1+ leg edema bilaterally Assessment/Plan Assessment/Plan * This patient is alert today and is free of any complaints. He denies both chest discomfort and shortness of breath while at rest. He has not ambulated to any significant degree. He was ruled out for a pulmonary embolism. I would therefore be inclined to consider the enzyme rise to be related to a true MT, especially considering the patient's old records that described his prior cath results. The patient has had a known lesion that was not pursued, likely due to his renal insufficiency. I recommend a cardiac catheterization. The patient now agrees to this procedure which we will pursue early next week. He needs to remain in the hospital in anticipation of this procedure. * Apical thrombus is suspected on his echo along with a regional wall motion abnormality. No coumadin for now in anticipation of a cardiac catheterization. * Continue aspirin and Plavix. Continue a statin. Continue telemetry? Yes
[2017-05-02 15:21] VITALS: BP 120/60
--- NOTE | 2017-05-02 21:32 | NUR ---
NOTIFIED BY [employer] PT HAD A 14 SECOND RUN OF SVT AND SPONTANOUSLY BROKE BACK TO NSR; STRIP PRINTED AND HANDED TO MD GALLITO MARCELO; EKG AND BLOOD WORK ORDERED WELL STAT XRAY ALL WHICH WERE PREFORMED.
--- NOTE | 2017-05-02 21:56 | RADIOLOGY REPORT ---
EXAMINATION: XR PORTABLE CHEST CLINICAL INFORMATION: Pneumonia COMPARISON: Chest x-ray 04/29/2017 TECHNIQUE: Portable frontal view of the chest was obtained. FINDINGS: There is cardiomegaly unchanged. Pulmonary vascularity is within normal limits. There is continued atelectasis or consolidation at the right lung base with posteriorly layering right pleural effusion. The pleural effusion is redistributed and is now tracking into the major and minor fissure on the right. The pleural effusion may be slightly increased. There is no other change. There is no pneumothorax. The left lung remains clear. IMPRESSION: Persistent consolidation and atelectasis at the right lung base with some redistribution of right pleural effusion as described. The pleural effusion may be slightly increased. There is no other change.
[2017-05-02 23:20] VITALS: BP 116/60
[2017-05-03 06:49] VITALS: BP 140/50
--- NOTE | 2017-05-03 08:53 | PN- Housestaff ---
DUSTIN CHA 05/03/17 0853: Subjective Follow-up For: NSTEMI Apical thrombus on echocardiogram Hyperkalemia Acute kidney injury-resolved Complaints: no complaints Tele-Events Since Last Visit: Patient is in sinus rhythm First-degree AV block Subjective: Patient was seen and examined this morning. He is alert awake and oriented to time place and person. no acute events happened overnight. He did get good sleep overnight. he denies any chest pain, palpitations, short of breath. Denies any fever, chills, change in bladder or bowel habits. Vitals remained stable. Review of Systems Constitutional: Reports: see HPI. Objective Last 24 Hrs of Vital Signs/I&O Vital Signs Date Time Temp Pulse Resp B/P B/P Pulse O2 O2 Flow FiO2 Mean Ox Delivery Rate 05/03 0800 Room Air 05/03 0649 98.2 88 20 140/50 95 Room Air 05/03 0000 Nasal 1.0L Cannula 05/02 2320 98.0 64 16 116/60 96 Nasal 2.0L Cannula 05/02 1521 97.8 70 20 120/60 97 Room Air Intake & Output 05/03 1600 05/03 0800 05/03 0000 Intake Total 300 440 Output Total 450 Balance -150 440 Intake, Oral 300 440 Number 1 Bowel Movements Output, Urine 450 Physical Exam General Appearance: Alert, Oriented X3, Cooperative, No Acute Distress Skin: No Rashes, No Breakdown HEENT: Atraumatic, PERRLA, EOMI Neck: Supple, No JVD Lymphatic: Cervical nl Cardiovascular: Normal S1, Normal S2 Lungs: Normal Air Movement Abdomen: Normal Bowel Sounds, Soft, No Hepatospenomegaly Vascular: Normal Pulses Current Medications: Current Medications Sig/Salome Start time Last Medication Dose Route Stop Time Status Admin Acetaminophen 650 MG Q6P PRN 04/28 1645 AC PO Aspirin Buffered 325 MG DAILY 04/29 1000 AC 05/03 PO 1050 Atorvastatin Calcium 80 MG 1700 04/29 1700 AC 05/02 PO 1628 Clopidogrel Bisulfate 75 MG DAILY 04/29 1000 AC 05/03 PO 1051 Ezetimibe 10 MG DAILY 04/29 1000 AC 05/03 PO 1051 Furosemide 10 MG DAILY 05/03 1030 AC 05/03 PO 1051 Insulin Aspart 0 TIDAC 04/28 1700 AC 05/02 SC 1251 Lorazepam 0.5 MG BID 04/28 2200 AC 05/03 PO 05/05 2159 1054 Magnesium Chloride 64 MG ONCE ONE 05/03 0045 DC 05/03 PO 05/03 0046 0310 Melatonin 3 MG AT BEDTIME 05/02 2200 CAN PO Nicotine 14 MG DAILY 04/29 1000 AC 05/02 TOP 0932 Sertraline HCl 50 MG DAILY 04/29 1000 AC 05/03 PO 1051 Zolpidem Tartrate 5 MG AT BEDTIME 05/02 2200 DC 05/02 PO 05/02 Last 24 Hrs of Lab/Sadi Results Last 24 Hrs of Labs/Mics: Laboratory Tests 05/03/17 0624: Anion Gap 11, Estimated GFR > 60, BUN/Creatinine Ratio 25.5 H 05/02/172119: Anion Gap 10, Estimated GFR > 60, BUN/Creatinine Ratio 28.2 H, Magnesium 1.8, Troponin I 0.26 *H Assessment/Plan Assessment: Mr. Almanzar is a 66yo M with PMH of type 2 diabetes, hypertension, dyslipidemia, peripheral vascular disease status post lower extremity bypass status post amputation of the all toes of left foot and 4 toes of right foot, coronary artery disease s/p stent , nephrolithiasis status post ESWL in June 2010, history of osteomyelitis of the right foot, Staph bacteremia 2/2 right middle finger osteomyelitis, history of heavy alcohol abuse, frequent falls, CKD, recent mechanical fall 1 week ago resulting in right shoulder injury, history of colonic polyps and iron deficiency anemia. Presented to the ED with confusion reported by . Upon arrival to ER his temperature was 96.7, pulse 53, respiratory rate 20, blood pressure 120/57 oxygen saturation 95% on room air. Per ER notes patient was awake, alert and oriented. Accu-Chek was 151. His labs are significant for H&H 9/28.4, potassium 5.9, chloride 112, bicarbonate 17, BUN 77, creatinine 2.7 (baseline 1.7), troponins 0.73, CRP 3.1, proBNP 01429 , INR 1.39. CXR and shoulder x-ray showed right acromial fracture and small right pleural effusion. CT head was normal. EKG showed right bundle branch block with first-degree AV block. In ER patient was given aspirin and Plavix. PROBLEM LIST 1. NSTEMI 2. Acute on chronic kidney disease from dehydration 3. Hyperkalemia 4. Bilateral lower extremity swelling. 5. Abrasions on both LE s/p mechanical fall 1 week ago 6. Elevated ProBNP 7. H/O Iron deficiency anemia. H/H baseline 1. NSTEMI Patient was brought to the emergency department after he was found confused. Troponins were elevated on admission. EKG changes were found - he was in sinus rhythm, right bundle branch block, first-degree AV block. Serial troponins and EKGs were done. Troponins were trended down. No EKG changes suggestive of ST-T wave changes. He was admitted to telemetry floor for further management. He was placed on continuous telemetry monitoring. Passenger Solicitor on board. Recommended IV heparin drip for NSTEMI. Patient was on IV heparin drip for a couple of days after which IV heparin drip was discontinued because of nosebleeds. * on aspirin, Plavix, Lipitor. 2. Apical thrombus Echocardiogram was done which showed Mild to moderately decreased systolic function with mid to distal and apical inferoseptal hypokinesis. Small apical thrombus is noted. Grade 2 diastolic dysfunction. The ejection fraction is visually estimated at 40%. * Plan is to continue aspirin and Plavix. * Patient needs cardiac catheterization - going for cardiac cath on 05/04/2017 * Hold off Coumadin for now for anticipated cardiac catheterization 2. Possible PE- ruled out Elevated trop (trending up) and elevated D-dimer, ECHO revealed increased RV pressures and enlarged RV * B/L lower extremity US doppler - negative * ABG - respiratory/metabolic acidosis * V/Q scan neg for PE * CXR revealed R side plueral effusion 3. Acute on chronic kidney disease Acute kidney injury most likely from dehydration. Creatinine was 2.7 on admission. He received gentle hydration after which creatinine improved 1.1 3. Hyperkalemia Potassium was 5.9 on admission. He was asymptomatic with no EKG changes. He was on continuous telemetry monitoring. Kayexalate was given. Improving 4. Bilateral lower extremity swelling B/L lower extremity US doppler was negative for a DVT. His CXR revealed R side pleural effusion. ECHO done 04/28/17 at [place] revealed Grade 2 diastolic dysfunction, with a small apical thrombus, moderate aortic stenosis with mild aortic regurgitation. Lower extremity swelling improved after couple of days. 5. Abrasions on both LE s/p mechanical fall 1 week ago 6. Elevated ProBNP (93652) Elevated proBNP on admission. Denied any chest pain, short of breath, orthopnea. He was on Lasix 20 mg at home. Lasix medication was on hold in the hospital because of acute kidney injury. Echocardiogram showed ejection fraction 40% with apical inferoseptal severe hypokinesis. Grade 2 diastolic dysfunction is noted. Patient remained stable without symptoms of heart failure. 7. H/O Iron deficiency anemia. H/H baseline 8. Right shoulder pain He was complaining of right shoulder pain but denied any chest pain or discomfort, dizziness or lightheadedness, palpitations, nausea, vomiting, abdominal pain, any change in urinary or bowel habits. According to patient has some problems walking because of amputated toes. He had a mechanical fall 1 week ago and got some bruises on his right shoulder and abrasions on both legs. * X-rays shoulder was done-no fractures were found. S * symptomatic management was given. 9. Hypertension Home medication of amlodipine lisinopril and metoprolol was on hold because of hypotension in the hospital 10. Coronary artery disease Status post stent placements Continue aspirin and Plavix 11. Hyperlipidemia Continue Lipitor 80 mg daily 12. Diabetes mellitus Home medications were on hold. Placed on insulin sliding scale. 13. Anxiety Continue home medication Ativan for anxiety 14. Depression Continue home medications sertraline 15. Peripheral vascular disease status post lower extremity bypass Status post amputation of toes. Problem List: 1. NSTEMI (non-ST elevated myocardial infarction) 2. GRECIA (acute kidney injury) Pain Ratin Pain Location: n/a Pain Goal: Remain pain free Pain Plan: tylinol Tomorrow's Labs & Rationales: bep Consulting Request: Consulting Specialty: Cardiology SUSY OBRIEN MD 05/03/17 1728: Attending MD Review Statement Attending Statement Attending MD Statement: examined this patient, discuss w/resident/PA/AN/SYQ 13 NAV/C2 OPERATOR, agreed w/resident/PA/AN/SYQ 13 NAV/C2 OPERATOR, reviewed EMR data (avail), amended to note Attending Assessment/Plan: The patient was seen and discussed with house staff. Appreciate Cardiology follow-up. Agree with the plan of care as outlined. To be transferred for cardiac catheterization when able to arrange.
--- NOTE | 2017-05-03 10:01 | PN- Cardiology ---
Subjective Subjective: * Patient reports some mild shortness of breath today. * creatinine is 1.1 * cardiac enzymes remain abnormal although they are trending down * sinus rhythm with first degree AV block and BBB Objective Vital Signs and I&Os Vital Signs Date Time Temp Pulse Resp B/P B/P Pulse O2 O2 Flow FiO2 Mean Ox Delivery Rate 05/03 08 Room Air 05/03 0649 98.2 88 20 140/50 95 Room Air 05/03 0000 Nasal 1.0L Cannula 05/02 2320 98.0 64 16 116/60 96 Nasal 2.0L Cannula 05/02 1521 97.8 70 20 120/60 97 Room Air Intake & Output 05/03 1600 05/03 0800 05/03 0000 05/02 1600 05/02 0800 05/02 0000 Intake Total 300 440 642 350 350 Output Total 450 650 425 Balance -150 440 642 -300 -75 Intake, IV 0 0 Intake, Oral 300 440 642 350 350 Number 1 0 0 Bowel Movements Output, Urine 450 650 425 Physical Exam: General: WD/WN male in NAD; alert and oriented x 3 Neck: positive JVD, no carotid bruit Heart: RRR with 2/6 systolic murmur Lungs: no crackles or wheezing Extremities: 1+ leg edema bilaterally Assessment/Plan Assessment/Plan * Ede reports some heaviness breathing and his chest X-ray shows a slight increase in his pleural effusion. We will begin Lasix 10mg daily. He otherwise has ambulated a bit without chest pain. He was ruled out for a pulmonary embolism. I would therefore be inclined to consider the enzyme rise to be related to a true ID, especially considering the patient's old records that described his prior cath results. The patient has had a known lesion that was not pursued, likely due to his renal insufficiency. I recommend a cardiac catheterization which we will pursue tomorrow. Keep NPO except for medications after midnight. * Apical thrombus is suspected on his echo along with a regional wall motion abnormality. No coumadin for now in anticipation of a cardiac catheterization. * Continue aspirin and Plavix. Continue a statin. Continue telemetry? Yes
[2017-05-03 14:58] VITALS: BP 110/62
[2017-05-03 23:09] VITALS: BP 122/60
[2017-05-04 07:21] VITALS: BP 136/52
--- NOTE | 2017-05-04 07:54 | NUR ---
LATE ENTRY: AT APPROX 2320 ON 05/03/17 PT HAD A 5 BEAT RUN OF V-TACH; DR GALLITO MARCELO NOTIFIED; PT ASYMPTOMATIC NO S/S DISTRESS
--- NOTE | 2017-05-04 08:08 | PN- Housestaff ---
ANITA DAVIS 05/04/17 0807: Subjective Follow-up For: NSTEMI Apical thrombus on echocardiogram Hyperkalemia Acute kidney injury-resolved Review of Systems Constitutional: Reports: see HPI. Objective Last 24 Hrs of Vital Signs/I&O Vital Signs Date Time Temp Pulse Resp B/P B/P Pulse O2 O2 Flow FiO2 Mean Ox Delivery Rate 05/04 0721 98.4 76 20 136/52 98 05/03 2309 99.1 75 16 122/60 98 Room Air 05/03 2236 Room Air 05/03 1458 97.7 71 18 110/62 98 Room Air Intake & Output 05/04 1600 05/04 0800 05/04 0000 Intake Total 682 Output Total 500 250 Balance -500 432 Intake, IV 10 Intake, Oral 672 Output, Urine 500 250 Physical Exam General Appearance: Alert, Oriented X3, Cooperative, No Acute Distress HEENT: Atraumatic, PERRLA, EOMI Neck: Supple, No JVD, No thryomegaly Cardiovascular: Normal S1, Normal S2, Systolic murmur Lungs: Clear to Auscultation, Normal Air Movement Abdomen: Normal Bowel Sounds, Soft, No Tenderness Extremities: No Clubbing, No Cyanosis, No Edema Current Medications: Current Medications Sig/Salome Start time Last Medication Dose Route Stop Time Status Admin Acetaminophen 650 MG Q6P PRN 04/28 1645 AC PO Aspirin Buffered 325 MG DAILY 04/29 1000 AC 05/04 PO 0930 Atorvastatin Calcium 80 MG 1700 04/29 1700 AC 05/03 PO 1755 Clopidogrel Bisulfate 75 MG DAILY 04/29 1000 AC 05/04 PO 0930 Ezetimibe 10 MG DAILY 04/29 1000 AC 05/04 PO 0930 Furosemide 10 MG DAILY 05/03 1030 AC 05/04 PO 0930 Insulin Aspart 0 TIDAC 04/28 1700 AC 05/03 SC 1755 Lorazepam 0.5 MG BID 04/28 2200 AC 05/04 PO 05/05 2159 0931 Nicotine 14 MG DAILY 04/29 1000 AC 05/02 TOP 0932 Sertraline HCl 50 MG DAILY 04/29 1000 AC 05/04 PO 0930 Zolpidem Tartrate 5 MG AT BEDTIME 05/03 2200 AC 05/03 PO 2110 Last 24 Hrs of Lab/Sadi Results Last 24 Hrs of Labs/Mics: Laboratory Tests 05/04/17 0655: Anion Gap 11, Estimated GFR > 60, BUN/Creatinine Ratio 26.4 H Assessment/Plan Assessment: Mr. Almanzar is a 66yo M with PMH of type 2 diabetes, hypertension, dyslipidemia, peripheral vascular disease status post lower extremity bypass status post amputation of the all toes of left foot and 4 toes of right foot, coronary artery disease s/p stent , nephrolithiasis status post ESWL in June 2010, history of osteomyelitis of the right foot, Staph bacteremia 2/2 right middle finger osteomyelitis, history of heavy alcohol abuse, frequent falls, CKD, recent mechanical fall 1 week ago resulting in right shoulder injury, history of colonic polyps and iron deficiency anemia. Presented to the ED with confusion reported by . Upon arrival to ER his temperature was 96.7, pulse 53, respiratory rate 20, blood pressure 120/57 oxygen saturation 95% on room air. Per ER notes patient was awake, alert and oriented. Accu-Chek was 151. His labs are significant for H&H 9/28.4, potassium 5.9, chloride 112, bicarbonate 17, BUN 77, creatinine 2.7 (baseline 1.7), troponins 0.73, CRP 3.1, proBNP 86650 , INR 1.39. CXR and shoulder x-ray showed right acromial fracture and small right pleural effusion. CT head was normal. EKG showed right bundle branch block with first-degree AV block. In ER patient was given aspirin and Plavix. PROBLEM LIST 1. NSTEMI 2. Acute on chronic kidney disease from dehydration 3. Hyperkalemia 4. Bilateral lower extremity swelling. 5. Abrasions on both LE s/p mechanical fall 1 week ago 6. Elevated ProBNP 7. H/O Iron deficiency anemia. H/H baseline 1. NSTEMI Patient was brought to the emergency department after he was found confused. Troponins were elevated on admission. EKG changes were found - he was in sinus rhythm, right bundle branch block, first-degree AV block. Serial troponins and EKGs were done. Troponins were trended down. No EKG changes suggestive of ST-T wave changes. He was admitted to telemetry floor for further management. He was placed on continuous telemetry monitoring. 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 Recommended IV heparin drip for NSTEMI. Patient was on IV heparin drip for a couple of days after which IV heparin drip was discontinued because of nosebleeds. * on aspirin, Plavix, Lipitor. 2. Apical thrombus Echocardiogram was done which showed Mild to moderately decreased systolic function with mid to distal and apical inferoseptal hypokinesis. Small apical thrombus is noted. Grade 2 diastolic dysfunction. The ejection fraction is visually estimated at 40%. * Plan is to continue aspirin and Plavix. * Patient transferred to [facility] for cardiac cath on 05/04/2017 * Hold off Coumadin for now for anticipated cardiac catheterization 2. Possible PE- ruled out Elevated trop (trending up) and elevated D-dimer, ECHO revealed increased RV pressures and enlarged RV * B/L lower extremity US doppler - negative * ABG - respiratory/metabolic acidosis * V/Q scan neg for PE * CXR revealed R side plueral effusion 3. Acute on chronic kidney disease Acute kidney injury most likely from dehydration. Creatinine was 2.7 on admission. He received gentle hydration after which creatinine improved 1.1 3. Hyperkalemia Potassium was 5.9 on admission. He was asymptomatic with no EKG changes. He was on continuous telemetry monitoring. Kayexalate was given. Improving 4. Bilateral lower extremity swelling B/L lower extremity US doppler was negative for a DVT. His CXR revealed R side pleural effusion. ECHO done 04/28/17 at [place] revealed Grade 2 diastolic dysfunction, with a small apical thrombus, moderate aortic stenosis with mild aortic regurgitation. Lower extremity swelling improved after couple of days. 5. Abrasions on both LE s/p mechanical fall 1 week ago 6. Elevated ProBNP (45763) Elevated proBNP on admission. Denied any chest pain, short of breath, orthopnea. He was on Lasix 20 mg at home. Lasix medication was on hold in the hospital because of acute kidney injury. Echocardiogram showed ejection fraction 40% with apical inferoseptal severe hypokinesis. Grade 2 diastolic dysfunction is noted. Patient remained stable without symptoms of heart failure. 7. H/O Iron deficiency anemia. H/H baseline 8. Right shoulder pain He was complaining of right shoulder pain but denied any chest pain or discomfort, dizziness or lightheadedness, palpitations, nausea, vomiting, abdominal pain, any change in urinary or bowel habits. According to patient has some problems walking because of amputated toes. He had a mechanical fall 1 week ago and got some bruises on his right shoulder and abrasions on both legs. * X-rays shoulder was done-no fractures were found. * symptomatic management was given. 9. Hypertension Home medication of amlodipine lisinopril and metoprolol was on hold because of hypotension in the hospital 10. Coronary artery disease Status post stent placements Continue aspirin and Plavix 11. Hyperlipidemia Continue Lipitor 80 mg daily 12. Diabetes mellitus Home medications were on hold. Placed on insulin sliding scale. 13. Anxiety Continue home medication Ativan for anxiety 14. Depression Continue home medications sertraline 15. Peripheral vascular disease status post lower extremity bypass Status post amputation of toes. Problem List: 1. NSTEMI (non-ST elevated myocardial infarction) 2. RGECIA (acute kidney injury) 3. Diabetes mellitus 4. Essential hypertension 5. Hyperkalemia 6. Hyperlipidemia Pain Ratin Pain Location: N/A Pain Goal: Remain pain free Pain Plan: N/A Tomorrow's Labs & Rationales: None Consulting Request: Consulting Specialty: Cardiology CHARLES MEYERS 05/04/17 1233: Attending MD Review Statement Attending Statement Attending MD Statement: examined this patient, discuss w/resident/PA/BUILDING MANAGER, agreed w/resident/PA/BUILDING MANAGER, discussed with family, reviewed EMR data (avail), discussed with nursing, discussed with case mgmt, reviewed images, amended to note Attending Assessment/Plan: DISCHARGE DIAGNOSIS 1. elevated troponins - possible nstemi ruled out PE. 2. grecia on ckd, likely pre-renal cause improved 3. elevated bnp 4. hyperkalemia resolved 5. left lower extremity pain 6. new RBBB 7. moderate aortic stenosis 8. Small left ventricle thrombus. 9. systolic Heart failure EF 40%, RWMA+ apical inferoseptal hypokinesis cardiology consulted and Patient considering elective cath and being transferred to higher facility for cath. FOLLOW UP PCP in 1 week of dc Cardiology as scheduled with Dr English. Cardiology as scheduled with Dr English.
== END 2017-05-04 11:49 | disposition short-term general hospital (02) | DRG 281 ==
LOC: DELPENDDIS → ERH 09:31 → 1NO 12:02 → ERHI 12:02 → ENRESERV 17:35 → ENTRNSPT 18:48 → 1NO 19:01 → CMPTRNSPT 19:20 → ENPENDDIS 05-01 11:17 → EDPENDDISTM 05-04 10:50 → EDPENDDISDT 05-04 10:50 → 1NO 05-04 11:25
PROVIDERS: Hospitalist; Internal Medicine Interventional Cardiology; Physician Assistant Medical; Student in an Organized Health Care Education/Training Program; ADMIT Internal Medicine Critical Care Medicine
DX: I21.4 Non-ST elevation (NSTEMI) myocardial infarction (principal); E87.4 Mixed disorder of acid-base balance; N17.9 Acute kidney failure, unspecified; I13.0 Hypertensive heart and chronic kidney disease with heart failure and stage 1 through stage 4 chronic kidney disease, or unspecified chronic kidney disease; I50.20 Unspecified systolic (congestive) heart failure; I27.2 Other secondary pulmonary hypertension; E11.22 Type 2 diabetes mellitus with diabetic chronic kidney disease; E78.5 Hyperlipidemia, unspecified; I51.3 Intracardiac thrombosis, not elsewhere classified; E87.5 Hyperkalemia; I73.9 Peripheral vascular disease, unspecified; E86.0 Dehydration; I45.10 Unspecified right bundle-branch block; R26.9 Unspecified abnormalities of gait and mobility; F32.9 Major depressive disorder, single episode, unspecified; F41.9 Anxiety disorder, unspecified; I25.10 Atherosclerotic heart disease of native coronary artery without angina pectoris; I44.0 Atrioventricular block, first degree; I35.0 Nonrheumatic aortic (valve) stenosis; N18.9 Chronic kidney disease, unspecified; F17.200 Nicotine dependence, unspecified, uncomplicated; Z79.84 Long term (current) use of oral hypoglycemic drugs; F17.210 Nicotine dependence, cigarettes, uncomplicated
CPT/HCPCS: 1NSP; 84133; 84300; 36415; 73030-RT; 78582; 81001; 82436; 82570; 87040; 87086; 93005; 93010; 93970; 97116-GO; 97161-GP; 97530-GO; A9540; A9558; C8929; J0690; J1644; Q9957

== ENCOUNTER 2017-09-30 19:11 | Inpatient (IN) | payer OTHER, MEDICARE ==
[~2017-09-30] VITALS: Ht 177.8 cm; Wt 76.4 kg
[~2017-09-30 19:11] MED LIST changes: +ATORVASTATIN CA40 M1 PO; +ATORVASTATIN CA80 M1 PO; +AUGMENTIN 875-1 EACH PO; +CYCLOBENZAPRINE5 M2 PO; +FERROUS SULFAT325 M3 PO; +FISH OIL 1,2001 EAC2 PO; +FUROSEMIDE40 M1 PO; +GLIMEPIRIDE2 MG PO; +HUMALOG100 UNIT/2 SC; +LANTUS SOL100 UNIT/1 SC; +LASIX40 M1 PO; +LIPITOR40 M1 PO; +LIPITOR80 M1 PO; +LISINOPRIL2.5 M1 PO; +METOPROLOL TART25 M1 PO; +MIRALAX17 G1 PO; +NITROGLYCERIN1 EACH TOP; +NORVASC2.5 M1 PO; +NOVOLOG FL100 UNIT/1 SC; +OXYCODONE HCL5 M1 PO; +OXYCODONE-ACET1 EACH PO; +PANTOPRAZOLE SO40 M1 PO; +PLAVIX75 M1 PO; +SERTRALINE HCL50 MG PO; +SODIUM BICARBO325 M1 PO; +SYMBICORT 16010.2 GM INH; +SYNTHROID25 MCG PO; +VENOFER200 MG/10 IV; +VITAMIN B-121000 MC3 PO; +VITAMIN B122500 MC2 PO; +VITAMIN C500 M6 PO; +VITAMIN D250000 UNIT PO; +ZETIA10 M1 PO
--- NOTE | 2017-09-30 19:39 | ED AMS/SEIZURE/WEAK/DIZZY ---
History of Present Illness General Chief Complaint: General Adult Stated Complaint: SIB ,"NEED ADMISSION JODY" Source: patient, family, old records Exam Limitations: no limitations Vital Signs & Intake/Output Vital Signs & Intake/Output Vital Signs Date Time Temp Pulse Resp B/P B/P Pulse O2 O2 Flow FiO2 Mean Ox Delivery Rate 10/02 0400 52 18 131/57 10/02 0400 93 Room Air 10/02 0000 98.4 55 20 115/54 10/02 0000 93 Room Air 10/02 0000 98.4 55 20 110/60 93 Room Air 10/01 2000 98.2 70 20 137/89 10/01 1600 97.9 50 20 110/56 10/01 1600 97.9 50 20 110/56 95 Room Air Room Air 10/01 1600 97 Room Air Room Air 10/01 1200 97.6 50 18 126/82 10/01 1200 97 Room Air Room Air ED Intake and Output 10/02 0000 10/01 1200 Intake Total 1215 1095 Output Total 700 650 Balance 515 445 Intake, Blood 350 650 Product Intake, IV 600 445 Intake, Oral 265 Number 0 Bowel Movements Output, Urine 700 650 Patient 166 lb Weight Weight Bed scale Measurement Method Allergies Coded Allergies: No Known Allergies (09/30/17) Reconcile Medications Ascorbate Calcium (Vitamin C) 500 MG TABLET 500 MG PO DAILY SUPPLEMENT ( Reported) Aspirin (Ecotrin*) 81 MG TABLET.DR 1 TAB PO DAILY HEART HEALTH (Reported) Atorvastatin Calcium 80 MG TABLET 1 TAB PO DAILY CHOLESTEROL (Reported) Budesonide/Formoterol Fumarate (Symbicort 160-4.5 Mcg Inhaler) 160 MCG-4.5 MCG/ ACTUATION HFA.AER.AD 2 PUF INH BID BREATHING PROBLEMS (Reported) Clopidogrel Bisulfate (Plavix) 75 MG TABLET 1 TAB PO DAILY BLOOD THINNER ( Reported) Cyanocobalamin (Vitamin B-12) 1,000 MCG TABLET 1 TAB PO DAILY SUPPLEMENT ( Reported) Ergocalciferol (Vitamin D2) (Vitamin D2) 50,000 UNIT CAPSULE 1 TAB PO QSUN SUPPLEMENT (Reported) Ezetimibe (Zetia) 10 MG TABLET 10 MG PO DAILY CHOLESTEROL (Reported) Ferrous Sulfate 325 MG (65 MG IRON) TABLET 1 TAB PO TID SUPPLEMENT (Reported) Fish Oil/Dha/Epa (Fish Oil 1,200 MG Fish Oil) 1,200 MG-144 MG-216 MG CAPSULE 1 CAP PO DAILY SUPPLEMENT (Reported) Furosemide (Lasix) 40 MG TABLET 1 TAB PO DAILY CHF Insulin Glargine,Hum.rec.anlog (Lantus Solostar) 100 UNIT/ML (3 ML) INSULN.PEN 6 UNIT SC DAILY DIABETES (Reported) Insulin Lispro (Humalog) (Unknown Strength) VIAL (Unknown Dose) SC TIDAC DIABETES (Reported) Levothyroxine Sodium (Synthroid) 25 MCG TABLET 0.025 MG PO DAILY AC HYPOTHYROIDISM . Lisinopril 2.5 MG TABLET 1 TAB PO DAILY HEART (Reported) Lorazepam (Ativan) 0.5 MG TABLET 1 TAB PO BID ANXIETY (Reported) Mupirocin 2 % OINT...G. 1 TULIO TOP BID TIP OF NOSE (Reported) apply to affected area(s) Nitroglycerin (Nitroglycerin Patch) 0.4 MG/HOUR PATCH.TD24 1 PATCH TOP Q12 CHEST PAIN . Oxycodone HCl 5 MG TABLET 1 TAB PO Q4 HRS NEEDED PRN PAIN (Reported) Pantoprazole Sodium 40 MG TABLET.DR 1 TAB PO BID GI (Reported) Polyethylene Glycol 3350 (Miralax) 17 GRAM POWD.PACK 1 PAC PO DAILY CONSTIPATION (Reported) dissolve in water Sertraline HCl 50 MG TABLET 50 MG PO DAILY DEPRESSION (Reported) Triage Note: PT SENT TO ED BY DR. LUND FOR ADMISSION AND BLOOD TRANSFUSION. PT HAD BLOOD WORK DONE TODAY AT [facility] AND RECEIVED A CALL FROM DR. LUND TODAY THAT HIS BLOOD COUNTS WERE LOW (H/H 5.9/17.8). PT REPORTS FEELING TIRED, WEAK, AND FEELS LIKE HE WILL PASS OUT IF HE BENDS OVER. Triage Nurses Notes Reviewed? yes HPI: 66 Year old gentleman with past medical history screening significant for coronary artery disease status post OK with stents to left circumflex, chronic systolic congestive heart failure, hypertension, peripheral vascular disease status post femoral popliteal bypass with left foot TMA and right foot amputation of fourth toes, CK D stage III, diabetes, iron deficiency anemia recent aortic valve replacement resents to ER sent in by his primary care physician after he had outpatient blood work today to perform that L showed an elevated creatinine BUN and an H&H of 5.9 and 17.8. Patient reports over the past week he's been feeling run down and tired. He states that time she's felt like he is going to pass out with exertion. No chest pain. He denies any black or bloody stools. The patient was recently discharged from this hospital after he was seen for the same. He had a colonoscopy and endoscopy performed on September 07 that was unremarkable. His states that he was sent home with oxygen and the nasal cannula which she states was causing him epistaxis. He is no longer on home O2 his last nosebleed was a week ago. No recent fall or head trauma no syncope. (Everardo Jung) Past History Travel History Traveled to [place] past 21 day No Medical History Any Pertinent Medical History? see below for history Neurological: GAIT ABDNORMALITY WEAKNESS EENT: NONE Cardiovascular: aortic stenosis, CAD, hypertension, hyperlipidemia, PVD Respiratory: NONE Gastrointestinal: NONE Hepatic: NONE Renal: CKD Musculoskeletal: CHRONIC OSTEOMYLITIS LFT FOOT- TOES AMP X5 RGHT FOOT- TOES AMP X4 Psychiatric: depression Endocrine: diabetes Blood Disorders: NONE Cancer(s): NONE PRODUCTION HELPER/Reproductive: NONE History of MRSA: No History of VRE: No History of CDIFF: No Influenza Vaccine: 08/09/17 Tetanus Vaccine: 04/20/17 Surgical History Surgical History: hernia repair-umbilical, right shoulddr sx Psychosocial History Who do you live with Spouse Services at Home Nursing What is your primary language Ugandan Tobacco Use: Quit >30 days ago ETOH Use: denies use Illicit Drug Use: denies illicit drug use Family History Family History, If Any: FATHER (CAD). , Age 40-50; Cause: CAD (coronary artery disease). MOTHER (Pancreatic cancer). BROTHER (HTN). Hx Contributory? No (Everardo Jung) Review of Systems Review of Systems Constitutional: Reports: see HPI. Comments Review of systems: See HPI, All other systems negative. Constitutional, no chills no fever, HEENT: no sore throat no congestion Cardiovascular: No chest pain Skin: no rashes, no change in skin Respiratory: No dyspnea no cough no sputum GI: No nausea no vomiting, no diarrhea, : No dysuria Muscle skeletal: No joint pain, no back pain, no neck pain, Neurologic: , no headache Psych: No stress Heme/endocrine: No bruising Immunology: No lymphadenopathy (Everardo Jung) Physical Exam Physical Exam General Appearance: well developed/nourished, alert Comments: Well-developed well-nourished person in no acute distress HEENT: Normal EENT exam; PERRL, EOMI,. HEAD is atraumatic. moist mucous membranes. Neck: Supple,normal range of motion Back: Full range of motion Cardiovascular: Regular rate and rhythms no murmurs rubs Respiratory:. No respiratory distress. Patient speaking in full complete sentences. Breath sounds clear to auscultation bilaterally: NO W/R/R Abdomen: Soft, nontender nondistended, no appreciable organomegaly. Normal bowel sounds. No rebound/guarding, No appreciable enlargement of the abdominal aorta, No ascites. Rectal: Nontender. Dark stool heme positive No mass/hemorrhoid, no fissure. Extremity: No edema, full range of motion of extremities Neuro: Alert oriented x3, motor sensory normal, cranial nerves II through XII grossly intact. There were no obvious focal neurologic abnormalities. Skin: No appreciable rash on exposed skin, skin is warm and dry. Psych: Mood and affect is normal, memory and judgment is normal. Core Measures ACS in differential dx? Yes CVA/TIA Diagnosis No Sepsis Present: No Sepsis Focused Exam Completed? No (Marilyn GALLEGOS,Everardo) Progress Differential Diagnosis: anemia, dehydration, electrolyte imbalance, GI bleed, vertebrobasilar insuff Plan of Care: Orders Procedure Date/time Status Nothing by Mouth 10/02 B Active ICU LAB BUNDLE 10/02 0500 Complete CBC WITHOUT DIFFERENTIAL 10/02 0500 Complete Clear Liquid Diet 10/01 D Complete CBC WITHOUT DIFFERENTIAL 10/01 2000 Complete URINE TOTAL PROT/CREAT RATIO 10/01 1737 Active FOLIC ACID 10/01 1205 Complete SERUM IRON 10/01 1205 Complete VITAMIN B12 10/01 1205 Complete ICU LAB BUNDLE 10/01 1100 Complete Wound Care/Dressing 10/01 0918 Complete Weight 10/01 0918 Active Turn and Reposition 10/01 0918 Complete Drains/Tubes 10/01 09 Complete Teach/Educate 10/01 0918 Active Skin/Pressure Ulcer Assess (Sk 10/01 0918 Active Nutritional Intake, Monitor 10/01 0918 Active Patient Care Conference 10/01 0918 Active Activity/Ambulation 10/01 0918 Active RETICULOCYTE COUNT 10/01 0425 Complete HAPTOGLOBIN 10/01 0300 Active Admit to inpatient 10/01 UNK Active Lab Add-on Test 10/01 UNK Active Current Medications Sig/Salome Start time Last Medication Dose Stop Time Status Admin Clopidogrel Bisulfate 75 MG DAILY 10/01 230 AC 10/01 (Plavix) 234 Aspirin 81 MG DAILY 10/01 2001 AC 10/01 (Aspirin) 214 Atorvastatin Calcium 80 MG 1700 10/01 1700 AC 10/01 (Lipitor) 1847 Cyanocobalamin/ 1 BAG DAILY 10/01 1400 CAN Thiamine/Pyridoxine (Vitamin in I.V.) Dextrose/Water 1,000 ML (D5W 1000) Budesonide/ 2 PUF BID 10/01 1000 AC 10/01 Formoterol Fumarate 214 (Symbicort) Lorazepam 0.5 MG BID 10/01 1000 AC 10/01 (Ativan) 10/08 0959 214 Sertraline HCl 50 MG DAILY 10/01 1000 AC 10/01 (Zoloft) 1016 Levothyroxine Sodium 0.025 MG DAILY AC 10/01 0700 AC 10/02 (Synthroid) 0618 Insulin Human Regular 0 Q6 09/30 2359 AC 10/01 (NovoLIN R) 0638 Melatonin 5 MG AT BEDTIME PRN 09/30 2345 AC 10/01 (Melatonin) 0048 Pantoprazole Sodium 40 MG BID 09/30 2217 AC 10/01 (Protonix) 2147 Laboratory Tests 10/02/17 0618: CBC w Diff NO MAN DIFF REQ, RBC 2.81 L, MCV 92.7, MCH 31.3 H, RDW 21.0 H, MPV 6.7 L, Gran % 76.0 H, Lymphocytes % 8.3 L, Monocytes % 9.1, Eosinophils % 5.9 H, Basophils % 0.7, Absolute Granulocytes 5.9, Absolute Lymphocytes 0.6 L, Absolute Monocytes 0.7 H, Absolute Eosinophils 0.5, Absolute Basophils 0.1, PUBS MCHC 33.8 10/02/17 0520: Anion Gap 10, Estimated GFR 38 L, Glucose 85, Calcium 9.2, Phosphorus 5.6 H, Magnesium 2.3, Total Bilirubin 0.7, AST 29, ALT 25, Albumin 3.2 L 10/01/172022: CBC w Diff NO MAN DIFF REQ, RBC 2.90 L, MCV 93.4, MCH 30.9, RDW 20.3 H, MPV 7.2 L, Gran % 79.9 H, Lymphocytes % 7.4 L, Monocytes % 8.2, Eosinophils % 4.1 , Basophils % 0.4, Absolute Granulocytes 5.8, Absolute Lymphocytes 0.5 L, Absolute Monocytes 0.6, Absolute Eosinophils 0.3, Absolute Basophils 0, PUBS MCHC 33.1 10/01/17 1205: Anion Gap 12, Estimated GFR 32 L, Glucose 122 H, Calcium 9.2, Phosphorus 6.0 H, Magnesium 2.5 H, Iron 87, Total Bilirubin 0.7, AST 17, ALT 27, Troponin I 0.15 *H, Albumin 3.4 L, Vitamin B12 > 1000 H, Folate > 20.0 H, CBC w Diff NO MAN DIFF REQ, RBC 2.93 L, MCV 93.5, MCH 30.8, RDW 20.8 H, MPV 7.8, Gran % 76.3 H, Lymphocytes % 9.1 L, Monocytes % 8.8, Eosinophils % 5.2 H, Basophils % 0.6 , Absolute Granulocytes 5.3, Absolute Lymphocytes 0.6 L, Absolute Monocytes 0.6 , Absolute Eosinophils 0.4, Absolute Basophils 0, PUBS MCHC 32.9 L Case discussed with Dr. Downey agrees with plan he was in to evaluate the patient agrees with plan patient is alert and oriented 3 at this time orthostatics are positive fluids ordered patient consented for 2 units of blood Case discussed with GI doctor kishore GI will consult however no need for repeat scopes at this time as he was scoped on September 07 [address] English advised patient should go to ICU Diagnostic Imaging: Viewed by Me: Radiology Read. Discussed w/RAD: Radiology Read. Radiology Impression: PATIENT: VONNIE BUSTAMANTE PRESENT AGE: 66 PATIENT ACCOUNT NO: [id number] : 50 LOCATION: [facility] ORDERING PHYSICIAN: Everardo GALLEGOS SERVICE DATE: 09/30/17 EXAM TYPE: RAD - XRY- PORTABLE CHEST XRAY EXAMINATION: XR PORTABLE CHEST CLINICAL INFORMATION: Lightheadedness. Anemia. GI bleed. COMPARISON: Chest radiograph 09/10/2017. TECHNIQUE: Portable frontal view of the chest was obtained. FINDINGS: There is small right pleural effusion. The previously seen left pleural effusion has significantly decreased/resolved. There is no left pneumothorax. There is atelectasis at the right more than left lung bases with underlying consolidation not excluded. The heart is mildly enlarged. There are postoperative changes of median sternotomy. There are surgical clips overlying the upper abdomen. There are suture anchors in the right humeral head. IMPRESSION: 1. Small right pleural effusion and associated atelectasis. 2. Following left thoracentesis no significant left-sided pleural fluid or pneumothorax is seen. Mild subsegmental atelectasis at the left lung base. 3. No dense consolidation is seen. DICTATED BY: Hernan Grissom MD DATE/TIME DICTATED:09/30/172013 ROTARY PEEL OVEN TENDER: JUHI DATE/TIME TRANSCRIBED:09/30/172013 CONFIDENTIAL, DO NOT COPY WITHOUT APPROPRIATE AUTHORIZATION. <Electronically signed in Other Vendor System> SIGNED BY: Hernan Grissom MD 09/30/172027 Initial ED EKG: nsr at 50, pac, rbbb, no acute st seg changes, Prior EKG: unchanged Rhythm Strip: normal sinus rhythm (Everardo Jung) Departure Departure Time of Disposition: 2204 Disposition: STILL A PATIENT Condition: Stable Clinical Impression Primary Impression: GI bleed Secondary Impressions: GRECIA (acute kidney injury), Elevated troponin, Hyperkalemia Referrals: Enoch BROWN,Ruy Moss (PCP/Family) Departure Forms: Customer Survey General Discharge Information Prescriptions: Current Visit Scripts Furosemide (Lasix) 1 TAB PO DAILY #60 TAB Observation Note Spoke With: Mansoor Silva MD Physician Advisor Notified: JON BROWN,KIMBERLY Lynch Place Patient In: Non-ED OBS Care Area Rationale for Observation: My rational for observation is as follows cardiology, GI consult trend labs trend H&H patient is receiving 2 units of blood premature discharge would BE medically harmful at this time IV fluids. (Everardo Jung) PA/RESIDENTIAL INTERIOR DESIGNER Co-Sign Statement Statement: ED Attending supervision documentation- [X] I saw and evaluated the patient. I have also reviewed all the pertinent lab results and diagnostic results. I agree with the findings and the plan of care as documented in the PA's/RESIDENTIAL INTERIOR DESIGNER's documentation. Patient presented at the request of his primary care physician due to low blood counts. Physical examination patient appears somewhat tired but is otherwise alert and cooperative. No apparent respiratory distress. [] I have reviewed the ED Record and agree with the PA's/RESIDENTIAL INTERIOR DESIGNER's documentation. [] Additions or exceptions (if any) to the PAs/RESIDENTIAL INTERIOR DESIGNER's note and plan are summarized below: [] (Nasreen BROWN,Brock Mujica) Critical Care Note Critical Care Note Critical Care Time: 30-74 min (Marilyn GALLEGOS,Everardo)
[2017-09-30] MEDS ORDERED: FISH OIL 1,2001 EACH PO (19:41)
[2017-09-30] MEDS ORDERED: ATORVASTATIN CA80 M1 PO (19:42)
[2017-09-30] MEDS ORDERED: MUPIROCIN22 GM TOP (19:44)
[2017-09-30 20:18] LABS: ABSOLUTE BASOPHIL COUNT 0 /CUMM (0.0-0.2); ABSOLUTE EOSINOPHIL COUNT 0.4 /CUMM (0.0-0.7); ABSOLUTE GRANULOCYTE CT 6.4 /CUMM (1.4-6.5); ABSOLUTE LYMPH COUNT 0.7 /CUMM (1.2-3.4); ABSOLUTE MONOCYTE COUNT 0.7 /CUMM (0.10-0.60); BASOPHIL % 0.5 % (0.0-2.0); EOSINOPHIL % 4.7 % (0-5); MEAN CORPUSCULAR HGB 31.2 PG (27.0-31.0); MEAN CORPUSCULAR HGB CONC 32.8 G/DL (33.0-37.0); MEAN PLATELET VOLUME 7.6 FL (7.4-10.4); PLATELET COUNT 277 /CUMM (130-400); RBC DISTRIBUTION WIDTH 23.3 % (11.5-14.5); RED BLOOD CELL CT 1.95 /CUMM (4.70-6.10); WHITE BLOOD CELL COUNT 8.2 /CUMM (4.8-10.8)
[2017-09-30 20:21] LABS: HEMATOCRIT 18.5 % (42-52)
--- NOTE | 2017-09-30 20:28 | RADIOLOGY REPORT ---
EXAMINATION: XR PORTABLE CHEST CLINICAL INFORMATION: Lightheadedness. Anemia. GI bleed. COMPARISON: Chest radiograph 09/10/2017. TECHNIQUE: Portable frontal view of the chest was obtained. FINDINGS: There is small right pleural effusion. The previously seen left pleural effusion has significantly decreased/resolved. There is no left pneumothorax. There is atelectasis at the right more than left lung bases with underlying consolidation not excluded. The heart is mildly enlarged. There are postoperative changes of median sternotomy. There are surgical clips overlying the upper abdomen. There are suture anchors in the right humeral head. IMPRESSION: 1. Small right pleural effusion and associated atelectasis. 2. Following left thoracentesis no significant left-sided pleural fluid or pneumothorax is seen. Mild subsegmental atelectasis at the left lung base. 3. No dense consolidation is seen.
[2017-09-30 20:36] LABS: PT 14.2 SEC (9.4-12.5); PTT 31 SEC (25-37)
--- NOTE | 2017-09-30 22:15 | History & Physical ---
Jaime BROWN,[facility] 09/30/17 2214: General Information and HPI MD Statement: I have seen and personally examined VONNIE ALMANZAR and documented this H&P. The patient is a 66 year old M who presented with a patient stated chief complaint of low H/H, sent in by PCP. . Source of Information: patient, family, old records Exam Limitations: no limitations History of Present Illness: Mr Almanzar is 66-year-old gentleman a PMH of CABG and stent placement, recent AVR at [facility], insulin-dependent diabetes, hypertension, dyslipidemia, peripheral vascular disease status post multiple metatarsal amputations, osteomyelitis, history of alcohol abuse and iron deficiency anemia, who was brought into the emergency department by his on 09/30/2017 after routine outpatient blood work showed the patient had an H&H of 5.9/17.8 The patient was recently seen at [facility] from 09/04/2017-09/11/2017. He underwent an EGD on 09/07 which showed no bleeding site and a biopsy was taken of a polypoid mucosal elevation in the descending duodenum. A colonoscopy was also done on 09/07 which showed a normal colonoscopy (incomplete prepatation ). Mr Almanzar does endorse that since discharge he has had multiple episodes of epistaxis. He attributes this to being placed on a nasal cannula for supplemental oxygen. Patient does state that he followed up with an ENT physician who recommended that he should stop his Plavix. Patient states that he stopped his Plavix last 09/24/2017. He reported that he restarted his Plavix today (09/30). Patient denies any stool changes. He denies any bright red blood per rectum. Denies any presence of any yin blood in toilet bowl. Patient states that he's been feeling increasingly lethargic. He also states that he felt lightheaded although endorses no episodes of any falls. The patient continues to endorse right shoulder pain owing to a fracture that he had in April of this year. The patient also states that his Lasix dose was reduced from 60 mg BID to 40 mg daily. Patients cra officer is Dr English. Patients PCP is Dr Kendall Allergies/Medications Allergies: Coded Allergies: No Known Allergies (09/30/17) Home Med list Ascorbate Calcium (Vitamin C) 500 MG TABLET 500 MG PO DAILY SUPPLEMENT ( Reported) Aspirin (Ecotrin*) 81 MG TABLET.DR 1 TAB PO DAILY HEART HEALTH (Reported) Atorvastatin Calcium 80 MG TABLET 1 TAB PO DAILY CHOLESTEROL (Reported) Budesonide/Formoterol Fumarate (Symbicort 160-4.5 Mcg Inhaler) 160 MCG-4.5 MCG/ ACTUATION HFA.AER.AD 2 PUF INH BID BREATHING PROBLEMS (Reported) Clopidogrel Bisulfate (Plavix) 75 MG TABLET 1 TAB PO DAILY BLOOD THINNER ( Reported) Cyanocobalamin (Vitamin B-12) 1,000 MCG TABLET 1 TAB PO DAILY SUPPLEMENT ( Reported) Ergocalciferol (Vitamin D2) (Vitamin D2) 50,000 UNIT CAPSULE 1 TAB PO QSUN SUPPLEMENT (Reported) Ezetimibe (Zetia) 10 MG TABLET 10 MG PO DAILY CHOLESTEROL (Reported) Ferrous Sulfate 325 MG (65 MG IRON) TABLET 1 TAB PO TID SUPPLEMENT (Reported) Fish Oil/Dha/Epa (Fish Oil 1,200 MG Fish Oil) 1,200 MG-144 MG-216 MG CAPSULE 1 CAP PO DAILY SUPPLEMENT (Reported) Furosemide (Lasix) 40 MG TABLET 1 TAB PO DAILY CHF Insulin Glargine,Hum.rec.anlog (Lantus Solostar) 100 UNIT/ML (3 ML) INSULN.PEN 6 UNIT SC DAILY DIABETES (Reported) Insulin Lispro (Humalog) (Unknown Strength) VIAL (Unknown Dose) SC TIDAC DIABETES (Reported) Levothyroxine Sodium (Synthroid) 25 MCG TABLET 0.025 MG PO DAILY AC HYPOTHYROIDISM . Lisinopril 2.5 MG TABLET 1 TAB PO DAILY HEART (Reported) Lorazepam (Ativan) 0.5 MG TABLET 1 TAB PO BID ANXIETY (Reported) Mupirocin 2 % OINT...G. 1 TULIO TOP BID TIP OF NOSE (Reported) apply to affected area(s) Nitroglycerin (Nitroglycerin Patch) 0.4 MG/HOUR PATCH.TD24 1 PATCH TOP Q12 CHEST PAIN . Oxycodone HCl 5 MG TABLET 1 TAB PO Q4 HRS NEEDED PRN PAIN (Reported) Pantoprazole Sodium 40 MG TABLET.DR 1 TAB PO BID GI (Reported) Polyethylene Glycol 3350 (Miralax) 17 GRAM POWD.PACK 1 PAC PO DAILY CONSTIPATION (Reported) dissolve in water Sertraline HCl 50 MG TABLET 50 MG PO DAILY DEPRESSION (Reported) Compliance With Home Meds: GOOD Past History Travel History Traveled to [place] past 21 day No Medical History Neurological: GAIT ABDNORMALITY WEAKNESS EENT: NONE Cardiovascular: aortic stenosis, CAD, hypertension, hyperlipidemia, PVD Respiratory: NONE Gastrointestinal: NONE Hepatic: NONE Renal: CKD Musculoskeletal: CHRONIC OSTEOMYLITIS LFT FOOT- TOES AMP X5 RGHT FOOT- TOES AMP X4 Psychiatric: depression Endocrine: diabetes Blood Disorders: NONE Cancer(s): NONE 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 , Age 40-50; Cause: CAD (coronary artery disease). MOTHER (Pancreatic cancer). BROTHER (HTN). Psychosocial History Where do you live? Home Who Do You Live With? spouse Services at Home: Nursing Primary Language: Togolese Smoking Status: Former Smoker (Quit August 14, year hx) ETOH Use: denies use Illicit Drug Use: denies illicit drug use Functional Ability ADLs Independent: dressing, eating, toileting, bathing. Ambulation: independent IADLs Independent: shopping, housework, finances, food prep, telephone, transportation , medication admin. Review of Systems Review of Systems Constitutional: Reports: see HPI, chills, weakness. Cardiovascular: Denies: chest pain, edema, orthopena, palpitations, peripheral edema. Respiratory: Denies: cough, hemoptysis, orthopnea, short of breath, sputum production, wheezing. GI: Denies: abdominal pain, bloating, constipation, diarrhea, distention, bowel incontinence, melena, nausea, bloody stool, changes in stool, vomiting. Genitourinary: Denies: discharge, dysuria, frequency, hematuria, hesitation, nocturia. Musculoskeletal: Reports: joint pain. Denies: see HPI, back pain, gout, joint swelling, muscle pain. Skin: Denies: change in skin color, change in hair/nails, dryness, erythema, jaundice, lesions. Neurological/Psychological: Denies: ataxia, cognitive dysfunction, confusion, depressed, dementia, emotional problems, numbness. Exam & Diagnostic Data Last 24 Hrs of Vital Signs/I&O Vital Signs Date Time Temp Pulse Resp B/P B/P Pulse O2 O2 Flow FiO2 Mean Ox Delivery Rate 09/30 2231 98.6 65 18 122/59 97 Room Air 09/303 98.7 55 16 122/59 99 Room Air 09/30 1925 98.2 55 15 118/55 95 Room Air Room Air Physical Exam General Appearance Alert, Oriented X3, Cooperative, No Acute Distress Skin No Rashes, No Breakdown HEENT PERRLA, EOMI, Mucous Membr. moist/pink Neck Supple Lymphatic Cervical nl Cardiovascular Regular Rate, Normal S1, Normal S2 Lungs Faint Crackles noted in Left Lower lung base Abdomen Normal Bowel Sounds, Soft, No Tenderness, Hyperactive BS. Pt was guiac + in the ER Neurological Normal Speech, Normal Tone, Sensation Intact, Cranial Nerves 3-12 NL, Right shoulder movment limitations. Patient unable to Abduct shoulder. Shoulder flexion also limited. Extremities Edema 1+, Bilaterral Transmetatarsal Amputations of , Pretibial Scabs. 1) 3 cm x 2 cm. 2) .5 x .5 cm. Clean and dry. Vascular Normal Pulses Last 24 Hrs of Labs/Sadi: Laboratory Tests 09/30/17 2000: Anion Gap 16, Estimated GFR 27 L, BUN/Creatinine Ratio 58.8 H, Glucose 148 H, Calcium 9.4, Total Bilirubin 0.4, AST 19, ALT 26, Alkaline Phosphatase 89, Troponin I 0.18 *H, Total Protein 8.0, Albumin 3.8, Globulin 4.2, Albumin/ Globulin Ratio 0.9 L, PT 14.2 H, INR 1.36 H, APTT 31, CBC w Diff NO MAN DIFF REQ, RBC 1.95 L, MCV 95.0 H, MCH 31.2 H, RDW 23.3 H, MPV 7.6, Gran % 78.0 H , Lymphocytes % 8.2 L, Monocytes % 8.6, Eosinophils % 4.7, Basophils % 0.5, Absolute Granulocytes 6.4, Absolute Lymphocytes 0.7 L, Absolute Monocytes 0.7 H, Absolute Eosinophils 0.4, Absolute Basophils 0, PUBS MCHC 32.8 L Microbiology 09/30 2243 UPPER RESP: Surveillance Culture - ORD 09/30 2243 GI: Surveillance Culture - ORD Diagnostic Data EKG Results Sinus Rhythm Rate 52 OR: 288 QTC 484 CXR Results SERVICE DATE: 09/30/17 EXAM TYPE: RAD - XRY-PORTABLE CHEST XRAY EXAMINATION: XR PORTABLE CHEST CLINICAL INFORMATION: Lightheadedness. Anemia. GI bleed. COMPARISON: Chest radiograph 09/10/2017. TECHNIQUE: Portable frontal view of the chest was obtained. FINDINGS: There is small right pleural effusion. The previously seen left pleural effusion has significantly decreased/resolved. There is no left pneumothorax. There is atelectasis at the right more than left lung bases with underlying consolidation not excluded. The heart is mildly enlarged. There are postoperative changes of median sternotomy. There are surgical clips overlying the upper abdomen. There are suture anchors in the right humeral head. IMPRESSION: 1. Small right pleural effusion and associated atelectasis. 2. Following left thoracentesis no significant left-sided pleural fluid or pneumothorax is seen. Mild subsegmental atelectasis at the left lung base. 3. No dense consolidation is seen. DICTATED BY: Hernan Grissom MD Assessment/Plan Assessment: Mr Almanzar is 66-year-old gentleman a PMH of CABG and stent placement, recent AVR at [facility], insulin-dependent diabetes, hypertension, dyslipidemia, peripheral vascular disease status post multiple metatarsal amputations, osteomyelitis, history of alcohol abuse and iron deficiency anemia, who was brought into the emergency department by his on 09/30/2017 after routine outpatient blood work showed the patient had an H&H of 5.9/17.8 In the ED the patient was ordered two units of PRBC. GI was consulted, they will see the patient in the AM. Cardiology was also consulted. His vitals have remained stable. Problem List: #Acute drop in H/H #Acute on chronic Anemia #Elevation in troponin. Donell Type II KS #Hyperkalemia #Recent Aortic Valve replacement #Acute on Choronic CKD #Hx of Diabetes #Epistaxis #Right Shoulder Injury CRCU Consultation in AM Formal GI consultation in AM. May pursure work up via Pill cam, as the patient was just scoped in September. Protonix IV BID Maintain Two Large bore IVs at all times. Keep NPO for now. Serial H/H, Q6-8 hours. Maintain H/H >8 Guiac all stools Serial BEP Elevation in BUN:Cr ratio, may suggest acute GI Bleed, will continue to Monitor. If patient is hemodynamically unstable, or shows active signs of bleeding, inform GI stat. Formal Cardiology Consultaion in AM. Initial Troponins likely elevated due to demand ischemia. Jovanny Troponins till peak. Obtain records from [facility]. Patient received Calcium Gluconate in ER. Monitor K in AM. Maintain on NPO sliding Scale. Target Bs: 140-180. Gentle hydration with D5 NS. Monitor ICU Bundle in AM UA The patient was scheduled to follow up for with Dr Martinez for a procudure to improve right shoulder functionality after a shoulder MRI revealed a large complete or near complete tear or the supraspinatus tendon. It also reveled a suspected partial bursal surface tear of the distal infraspinatus tendon. The patient will need to be given a referral for outpatient follow up. Consider OT consultation in AM. Diet: Keep NPO for now. DVT PPX: ALPS Code Status: FC As Ranked By This Provider Problem List: 1. Symptomatic anemia 2. Rotator cuff injury 3. Hyperkalemia 4. GRECIA (acute kidney injury) Core Measures/Misc (06/21) Sepsis (View protocol) Sepsis Present: No Ricardo BROWN, [facility] 10/01/17 0004: Attending MD Review Statement Attending Statement Attending MD Statement: examined this patient, discuss w/resident/PA/CLINICAL INFORMATICS DIRECTOR, agreed w/resident/PA/CLINICAL INFORMATICS DIRECTOR, reviewed images, amended to note Attending Assessment/Plan: 66 yo M with h/o CAD s/p KS with strent to LCX, recent bovine AVR with two- vessel CABG (Aug 2017), chronic systolic CHF, T2DM c/b retinopathy, HTN, PVD s/p fem-pop bypass with left foot TMA and right foot amputation of 4 toes, CKD stage 3, iron deficiency anemia, is sent in by PCP for abnormal labs. Patient had follow up blood work done today (at [facility]) which showed H/H 5.9/17.8 and elevated BUN 135. Patient reports feeling weak, tired, with inability to carry out daily activities. He also reports intermittent episodes of lightheadedness, feeling 'woozy' and near syncopal episodes. He denies vision changes or LOC. He denies chest pain or palpitations, and states his breathing is better than before. Patient was recently admitted to [facility] (09/04 09/11) for symptomatic anemia ( EGD/ colonoscopy negative) and acute on chronic heart failure s/p left thoracentesis for exudative pleural effusion. Aspirin and plavix were resumed upon discharge. He was also discharged on supplemental O2 (sats 85% at rest) 2 L via NC, however he developed recurrent epistaxis for which he was evaluated by ENT last week and he has discontinued use of home O2 since. Plavix was again held for a few days which he resumed today. He otherwise denies melena, BRBPR, hematemesis or heartburn. No OTC NSAID use. Patient followed up with Dr. English recently, his lasix dose was reduced to 40 mg daily (from 60 mg BID). Vitals afebrile, HR 55-65, BP 122/59, sats 99% RA. Orthostats: Lying BP 105/64 - -> Sitting BP 98/47. Exam: AAO, no distress, dry mucous membranes, Neck supple, Chest bypass scar area clean/dry, left basilar crackles+ otherwise lungs clear, Heart S1S2 regular , systolic murmur+, Abd soft, NT, LE: 1+ pedal edema. Right leg lower half healed wound scabs+. Limited ROM of right shoulder, pain with abduction, no obvious hematoma or swelling compared to left shoulder. Rectal exam: dark stool heme positive (per ER). Labs: H/H 6.1/18.5 (9.2/27.5 on Sep 11 on discharge), macrocytic anemia, INR 1.36 , K 5.4, bicarb 18, BUN 141, creat 2.4 (baseline 1.8-2.1), glucose 148, LFTs normal, trop 0.18. Echo (2017): EF 30-40% with anterior and distal septal akinesis, mild to moderate TR, mild pulmonary hypertension. EKG: SR, RBBB (old), first degree AV block, Qtc 484. CXR: small right pleural effusion with atelectasis, mild subsegmental atelectasis at left lung base. Assessment and plan: 1. Weakness, lethargy, near syncopal episodes - symptomatic anemia. 2. Mild orthostasis 3. Acute on chronic anemia of blood loss 4. Chronic iron deficiency anemia 5. Elevated troponin type 2 KS 6. Elevated BUN with GRECIA on CKD stage 3 with metabolic acidosis 7. Hyperkalemia 8. Recent AVR and CABG - 23 hour observation in ICU - Guaiac all stools, type and crossmatch, transfuse 2 units PRBC. - Check CBC twice daily, goal Hb > 8.0. - Check LDH, rule out hemolysis - Check urinalysis - Check TSH, free T4, B12, folic acid. - GI consult, may need outpatient Pill Cam study - NPO for now, advance diet in AM if no plans for repeat EGD - Continue PPI. - Hold aspirin and plavix. - Serial EKG and troponin, Cardio consult, no need to repeat Echo. - Gentle hydration, avoid fluid overload. - Recheck orthostats in AM. - Patient received 1 dose of calcium gluconate in ER, no EKG changes of hyperkalemia. - Recheck renal functions and electrolyte levels - Hold lasix, lisinopril - Diabetes management insulin SS and lantus. - Right leg wound local xeroform dressing - CRCU consult in AM - Outpatient follow up with Ortho for right shoulder pain MRI (Jul 2017) shows large tear of supraspinatous tendon, distracted fracture at junction of spine of scapula and acromion process. DVT ppx Alps. Full code. TTS > 45 mins Observation Initial Note - I have personally examined WILVERYUDYKatVONNIE on 09/30/17 at 0004. The disposition of VONNIE ALMANZAR is uncertain at this time and before a determination can be made, he requires a period of observation for the following reasons [acute on chronic anemia, type 2 KS] Arvin Jason 10/01/17 0837: Core Measures/Misc (06/21) Acute Coronary Syndrome ACS Diagnosis: No Congestive Heart Failure Congestive Heart Failure Diagnosis No Cerebrovascular Accident CVA/TIA Diagnosis: No VTE (View Protocol) VTE Risk Factors Age>40 No Mechanical VTE Prophylaxis d/t N/A MechProphylax Ordered No VTE Pharm Prophylaxis d/t Medical Contraindication (?BLEEDING)
[2017-09-30] MEDS ORDERED: LASIX40 M1 PO (22:48)
[2017-10-01] VITALS: BP 140/60
[2017-10-01 04:00] VITALS: BP 122/55
[2017-10-01 05:58] LABS: ABSOLUTE BASOPHIL COUNT 0 /CUMM (0.0-0.2); ABSOLUTE EOSINOPHIL COUNT 0.4 /CUMM (0.0-0.7); ABSOLUTE GRANULOCYTE CT 5.5 /CUMM (1.4-6.5); ABSOLUTE LYMPH COUNT 0.7 /CUMM (1.2-3.4); ABSOLUTE MONOCYTE COUNT 0.7 /CUMM (0.10-0.60); BASOPHIL % 0.6 % (0.0-2.0); EOSINOPHIL % 5.4 % (0-5); GRANULOCYTE % 74.3 % (42.2-75.2); HEMATOCRIT 21.8 % (42-52); MEAN CORPUSCULAR HGB 31.4 PG (27.0-31.0); MEAN CORPUSCULAR HGB CONC 33.7 G/DL (33.0-37.0); MEAN CORPUSCULAR VOLUME 93.2 FL (80.0-94.0); MEAN PLATELET VOLUME 7.7 FL (7.4-10.4); PLATELET COUNT 244 /CUMM (130-400); RBC DISTRIBUTION WIDTH 21.2 % (11.5-14.5); RED BLOOD CELL CT 2.34 /CUMM (4.70-6.10); WHITE BLOOD CELL COUNT 7.4 /CUMM (4.8-10.8)
[2017-10-01 08:00] VITALS: BP 112/60
--- NOTE | 2017-10-01 08:05 | Cons- CRCU ---
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 Blood work done on 09/30/2017 (at [facility]) which showed H/H 5.9/17.8 and elevated BUN 135. Patient complained of feeling weak, tired, inability to carry out daily activities, feeling lightheaded and dizzy, with near syncopal episode. No chest pain, palpitations, nausea, vomiting, no hematemesis, melena, or BRBPR . No recent NSAID use. Patient was recently admitted to [facility] (09/04 09/11) for symptomatic anemia (EGD/ colonoscopy negative) and acute on chronic heart failure s/p left thoracentesis for exudative pleural effusion. Aspirin and plavix were resumed upon discharge. He was also discharged on supplemental O2 ( sats 85% at rest) 2 L via NC, however he developed recurrent epistaxis for which he was evaluated by ENT last week. He discontinued oxygen and Plavix was held for a few days. He resumed Plavix on 09/30/2017. Patient follows up with Dr. English, and his Lasix dose was essentially reduced from 60 mg to 40 mg daily. Patient also reports right shoulder pain which has been going on since April after he sustained a fracture. Vitals in ED: HR 55-65, BP 122/59, sats 99% RA. Orthostats were negative: Lying BP 105/64 --> Sitting BP 98/47. Guaiac positive in the ER Labs: H/H 6.1/18.5 (9.2/27.5 on Sep 11 on discharge), macrocytic anemia, INR 1.36 , K 5.4, bicarb 18, BUN 141, creat 2.4 (baseline 1.8-2.1), glucose 148, LFTs normal, trop 0.18. Echo (2017): EF 30-40% with anterior and distal septal akinesis, mild to moderate TR, mild pulmonary hypertension. EKG: SR, RBBB (old), first degree AV block, Qtc 484. CXR: small right pleural effusion with atelectasis, mild subsegmental atelectasis at left lung base. Allergies/Medications Allergies: Coded Allergies: No Known Allergies (09/30/17) Home Med List: Ascorbate Calcium (Vitamin C) 500 MG TABLET 500 MG PO DAILY SUPPLEMENT ( Reported) Aspirin (Ecotrin*) 81 MG TABLET.DR 1 TAB PO DAILY HEART HEALTH (Reported) Atorvastatin Calcium 80 MG TABLET 1 TAB PO DAILY CHOLESTEROL (Reported) Budesonide/Formoterol Fumarate (Symbicort 160-4.5 Mcg Inhaler) 160 MCG-4.5 MCG/ ACTUATION HFA.AER.AD 2 PUF INH BID BREATHING PROBLEMS (Reported) Clopidogrel Bisulfate (Plavix) 75 MG TABLET 1 TAB PO DAILY BLOOD THINNER ( Reported) Cyanocobalamin (Vitamin B-12) 1,000 MCG TABLET 1 TAB PO DAILY SUPPLEMENT ( Reported) Ergocalciferol (Vitamin D2) (Vitamin D2) 50,000 UNIT CAPSULE 1 TAB PO QSUN SUPPLEMENT (Reported) Ezetimibe (Zetia) 10 MG TABLET 10 MG PO DAILY CHOLESTEROL (Reported) Ferrous Sulfate 325 MG (65 MG IRON) TABLET 1 TAB PO TID SUPPLEMENT (Reported) Fish Oil/Dha/Epa (Fish Oil 1,200 MG Fish Oil) 1,200 MG-144 MG-216 MG CAPSULE 1 CAP PO DAILY SUPPLEMENT (Reported) Furosemide (Lasix) 40 MG TABLET 1 TAB PO DAILY CHF Insulin Glargine,Hum.rec.anlog (Lantus Solostar) 100 UNIT/ML (3 ML) INSULN.PEN 6 UNIT SC DAILY DIABETES (Reported) Insulin Lispro (Humalog) (Unknown Strength) VIAL (Unknown Dose) SC TIDAC DIABETES (Reported) Levothyroxine Sodium (Synthroid) 25 MCG TABLET 0.025 MG PO DAILY AC HYPOTHYROIDISM . Lisinopril 2.5 MG TABLET 1 TAB PO DAILY HEART (Reported) Lorazepam (Ativan) 0.5 MG TABLET 1 TAB PO BID ANXIETY (Reported) Mupirocin 2 % OINT...G. 1 TULIO TOP BID TIP OF NOSE (Reported) apply to affected area(s) Nitroglycerin (Nitroglycerin Patch) 0.4 MG/HOUR PATCH.TD24 1 PATCH TOP Q12 CHEST PAIN . Oxycodone HCl 5 MG TABLET 1 TAB PO Q4 HRS NEEDED PRN PAIN (Reported) Pantoprazole Sodium 40 MG TABLET.DR 1 TAB PO BID GI (Reported) Polyethylene Glycol 3350 (Miralax) 17 GRAM POWD.PACK 1 PAC PO DAILY CONSTIPATION (Reported) dissolve in water Sertraline HCl 50 MG TABLET 50 MG PO DAILY DEPRESSION (Reported) Current Medications: Current Medications Sig/Salome Start time Last Medication Dose Route Stop Time Status Admin Atorvastatin Calcium 80 MG 1700 10/01 1700 AC PO Budesonide/ 2 PUF BID 10/01 1000 AC Formoterol Fumarate INH Calcium Gluconate 0 .STK-MED ONE 09/30 2108 DC IV Calcium Gluconate 1 GM ONCE ONE 09/30 2100 DC 09/30 Sodium Chloride 100 ML IV 09/30 Dextrose/Sodium 1,000 ML Q10H 09/30 2345 AC 10/01 Chloride IV 10/01 0944 0312 Insulin Aspart 0 TIDAC 10/01 0800 CAN SC Insulin Human Regular 0 Q6 09/30 2359 AC 10/01 SC 0638 Levothyroxine Sodium 0.025 MG DAILY AC 10/01 0700 AC 10/01 PO 0639 Lorazepam 0.5 MG BID 10/01 1000 AC PO / 0959 Melatonin 5 MG AT BEDTIME PRN 09/30 2345 AC 10/01 PO 0048 Oxycodone HCl 5 MG Q4 HRS NEEDED PRN 09/30 2345 AC PO Oxycodone/ 1 TAB ONCE ONE 10/01 0445 DC 10/01 Acetaminophen PO 10/01 0446 0450 Pantoprazole Sodium 0 .STK-MED ONE 09/30 2236 DC IV Pantoprazole Sodium 40 MG BID 09/30 2217 AC 09/30 IV 2234 Ramelteon 8 MG ONCE ONE 10/01 0215 DC 10/01 PO 10/01 0216 0218 Sertraline HCl 50 MG DAILY 10/01 1000 AC PO Sodium Chloride 1,000 ML BOLUS ONE 09/30 2100 DC 09/30 IV 09/30 Review of Systems Review of Systems Constitutional: Reports: malaise, weakness. EENTM: Reports: epistaxis. Cardiovascular: Reports: no symptoms. Respiratory: Reports: short of breath. GI: Reports: no symptoms. Genitourinary: Reports: no symptoms. Musculoskeletal: Reports: joint pain, joint swelling. Skin: Reports: no symptoms. Neurological/Psychological: Reports: no symptoms. 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 , Age 40-50; Cause: CAD (coronary artery disease). MOTHER (Pancreatic cancer). BROTHER (HTN). Psychosocial History Where Do You Live? Home Who Do You Live With? spouse Services at Home: Nursing Primary Language: Nigerian Smoking Status: Former Smoker (Quit August 14 year hx) ETOH Use: denies use Illicit Drug Use: denies illicit drug use Functional Ability ADLs Independent: dressing, eating, toileting, bathing. Ambulation: independent IADLs Independent: shopping, housework, finances, food prep, telephone, transportation , medication admin. Exam & Diagnostic Data Last 24 Hrs of Vital Signs/I&O Vital Signs Date Time Temp Pulse Resp B/P B/P Pulse O2 O2 Flow FiO2 Mean Ox Delivery Rate 10/01 0000 98.0 59 20 140/60 10/01 0000 97 Room Air 10/01 0000 98.4 56 16 140/60 96 Room Air 09/301 98.6 65 18 122/59 97 Room Air 09/30 2213 98.7 55 16 122/59 99 Room Air 09/30 1925 98.2 55 15 118/55 95 Room Air Room Air Intake & Output 10/01 0800 10/01 0000 09/30 1600 Intake Total 1000 Output Total Balance 1000 Intake, IV 1000 Intake, Oral 0 Patient 75.438 kg Weight Weight Bed scale Measurement Method Physical Exam General Appearance: well developed/nourished, no apparent distress, alert, awake Head: atraumatic, normal appearance Eyes: Bilateral: normal appearance. Ears, Nose, Throat: normal ENT inspection, DRY MUCOUS MEMBRANES Neck: normal inspection, supple, full range of motion Respiratory: decreased breath sounds, LEFT BASAL CRACKLES Cardiovascular: regular rate/rhythm, systolic murmur Extremities: TRACE PEDAL EDEMA BILATERALLY LEFT >RIGHT, BILATERAL METATARSAL AMPUTATIONS, restricted range of motion in the right shoulder, limited abduction Last 48 Hrs of Labs/Sadi: Laboratory Tests 10/01/17 0425: Anion Gap 11, Estimated GFR 29 L, Glucose 109 H, Calcium 9.0, Phosphorus 6.0 H, Magnesium 2.5 H, Total Bilirubin 0.4, AST 16 L, ALT 28, Troponin I 0.17 *H, Albumin 3.3 L, CBC w Diff NO MAN DIFF REQ, RBC 2.34 L, MCV 93.2, MCH 31.4 H, RDW 21.2 H, MPV 7.7, Gran % 74.3, Lymphocytes % 9.6 L, Monocytes % 10.1 H, Eosinophils % 5.4 H, Basophils % 0.6, Absolute Granulocytes 5.5, Absolute Lymphocytes 0.7 L, Absolute Monocytes 0.7 H, Absolute Eosinophils 0.4, Absolute Basophils 0, PUBS MCHC 33.7 10/01/17 0005: Urine Color YEL, Urine Clarity CLEAR, Urine pH 6.0, Ur Specific [place] 1.015, Urine Protein NEG, Urine Ketones NEG, Urine Nitrite NEG, Urine Bilirubin NEG, Urine Urobilinogen 0.2, Ur Leukocyte Esterase NEG, Ur Microscopic EXAM NOT REQUIRED, Urine Hemoglobin NEG, Urine Glucose NEG 09/30/17 2000: Anion Gap 16, Estimated GFR 27 L, BUN/Creatinine Ratio 58.8 H, Glucose 148 H, Calcium 9.4, Total Bilirubin 0.4, AST 19, ALT 26, Alkaline Phosphatase 89, Lactate Dehydrogenase 552, Troponin I 0.18 *H, Total Protein 8.0, Albumin 3.8, Globulin 4.2, Albumin/Globulin Ratio 0.9 L, Vitamin B12 Pending, Folate Pending , TSH Pending, Free T4 1.18, PT 14.2 H, INR 1.36 H, APTT 31, CBC w Diff NO MAN DIFF REQ, RBC 1.95 L, MCV 95.0 H, MCH 31.2 H, RDW 23.3 H, MPV 7.6, Gran % 78.0 H, Lymphocytes % 8.2 L, Monocytes % 8.6, Eosinophils % 4.7, Basophils % 0.5, Absolute Granulocytes 6.4, Absolute Lymphocytes 0.7 L, Absolute Monocytes 0.7 H, Absolute Eosinophils 0.4, Absolute Basophils 0, PUBS MCHC 32.8 L Assessment/Plan Impression/Plan: Patient is a 66 yo M with past medical history of CAD s/p NV with strent to LCX, recent bovine AVR with two-vessel CABG at [facility] (Aug 2017), 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 Vitals in ED: HR 55-65, BP 122/59, sats 99% RA. Orthostats were negative: Lying BP 105/64 --> Sitting BP 98/47. Guaiac positive in the ER Labs: H/H 6.1/18.5 (9.2/27.5 on Sep 11 on discharge), macrocytic anemia, INR 1.36 , K 5.4, bicarb 18, BUN 141, creat 2.4 (baseline 1.8-2.1), glucose 148, LFTs normal, trop 0.18. Echo (2017): EF 30-40% with anterior and distal septal akinesis, mild to moderate TR, mild pulmonary hypertension. EKG: SR, RBBB (old), first degree AV block, Qtc 484. CXR: small right pleural effusion with atelectasis, mild subsegmental atelectasis at left lung base. Assessment and plan #1 Symptomatic anemia with weakness, lethargy, near syncopal episodes: H&H 7. 4/ 21.8 this morning. Elevated BUN -Monitor in ICU -Guaiac positive in ED. Guaiac all stools -We will check orthostatics -Gentle hydration(caution given low EF) -Type and crossmatch. Status post 2 units of PRBC. Hemoglobin goal 8 -Pending thyroid function tests, vitamin B12 and folate. Normal LDH -Nothing by mouth for now for possible GI intervention -IV Protonix twice a day -Holding aspirin and Plavix -Recent endoscopy/colonoscopy in September negative. Plan for outpatient [facility]. -GI consult appreciated #2 Elevated troponins: No chest pain, no EKG changes from baseline. -Serial troponins and EKG to rule out ACS -Likely type II NV, troponins trended down -No need to repeat echocardiogram -Cardiology consult with Dr. English -Aspirin and Plavix held due to GI bleed. Statin continued. #3.GRECIA on CKD stage 3 -Patient on gentle fluid hydration, Avoid fluid overload -Hold lasix, lisinopril -Follow up bep, avoid nephrotoxins #4 recent AVR and CABG -Aspirin and Plavix on hold due to GI bleed -Cardiologic consult with Dr. English -No need to repeat echocardiogram #5 hyperkalemia -Received 1 dose of calcium gluconate in the ER, -No EKG changes of hyperkalemia -Potassium this morning 5.1 #6 history of diabetes -3 times a day Accu-Cheks = NovoLog sliding scale -Nothing by mouth for now, and then diabetic diet 2 g sodium restriction #7 right shoulder injury/fracture -Patient scheduled for a outpatient follow-up with Dr. Denis for reverse surgery . MRI (Jul 2017) shows large tear of supraspinatous tendon, distracted fracture at junction of spine of scapula and acromion process. -OT consult DVT prophylaxis Alps Full code Problem List: 1. Symptomatic anemia 2. GI bleed 3. Elevated troponin 4. Acute on chronic renal insufficiency 5. Anemia Consult Acknowledgment - Thank you for your consult request. Gerald BROWN,[facility] 10/01/17 0845: Assessment/Plan Other Findings/Comments: This is a gentleman with history of NV with previous stent to the circumflex, recent aortic valve replacement and two-vessel CABG in August 2017, chronic systolic heart failure with low ejection fraction, type 2 diabetes with retinopathy, hypertension, peripheral vascular disease with previous amputations in both foot, chronic kidney disease, iron deficiency anemia, was sent in because of severe anemia and significantly elevated BUN. Patient has been feeling weak and tired and he has had near syncopal episodes since he is admitted here. He has had a recent admission with similar symptoms and he did have an upper and lower endoscopy which did not reveal any significant bleeding and he did have a left-sided thoracentesis recently with an exudative pleural effusion which was thought to be related to post cardiotomy effusion. Patient has been on double antiplatelet therapy for his stent and since then he has had epistaxis as well. He was on oxygen before this has been discontinued. Has not been using any NSAIDs. Recently he has been diuresing with Lasix per patient. His history, past history, exam is as above ISSUES * Significant symptomatic anemia with near syncope with weakness and lethargy probably related to slow GI bleed as patient has disproportionately elevated BUN. * Significant bradycardia which needs to be investigated * Chronic kidney disease with disproportionately elevated BUN probably related to his underlying vascular disease and GI bleed * Ischemic heart disease with recent stent, aVR and two-vessel CABG now on double antiplatelet therapy * Elevated troponin probably related to severe anemia type II ischemia most likely * Electrolyte abnormality due to above, significant hyperkalemia now being treated. * Small left more than right effusion due to heart disease and post cardiotomy effusion * Diabetes requiring insulin, hypertension, hyperlipidemia, peripheral vascular disease, status post multiple metatarsal amputation, previous osteomyelitis, alcohol abuse, hypothyroidism on appropriate supplementation, chronic constipation appears to be so far stable. RECOMMENDATION Please admit patient to the ICU Transfuse 2 units slowly and goal hemoglobin is 8 g. After 2 units of transfusion given intravenous Lasix one dose EKG to evaluate his heart rhythm as patient appears profoundly bradycardic Cardiology and GI eval this morning please call Oxygen to keep sats around 90% Ask cardiology to see with a dual antiplatelet therapy is necessary Keep him nothing by mouth and hold his long-acting insulin for now and check his fingerstick glucose and cover him with short acting insulin Continue Synthroid Hold his lisinopril Avoid narcotics and lorazepam if needed Proton pump inhibitor intravenous twice a day Renal evaluation, to evaluate his chronic kidney disease and to see whether he would benefit from an iron transfusion Patient was on bicarbonate pill ask renal to see whether this may need to be continued however this could be held due to his GI bleed probably Discontinue vitamin C Continue his inhalers Continue to rule out for ischemic heart, repeat his electrolytes often to evaluate his potassium PT is critically ill tts 40 mins Consult Acknowledgment - Thank you for your consult request.
--- NOTE | 2017-10-01 09:34 | Admission Certification ---
Admission Certification Certification Statement - As attending physician, I certify that at the time of - admission, based on clinical presentation, severity of - symptoms, need for further diagnostic testing and - therapeutic interventions, and risk of adverse outcomes - without in-hospital treatment, in my clinical assessment, - this patient requires an acute hospital stay for a minimum - of two nights or longer. I have also considered psychsocial - factors such as support system, advanced age, financial - issues, cognitive issues, and failed out-patient treatments, - past re-admission history, safety of patient, and lack of - compliance as applicable. Specific rationale supporting this admission is: severe anemia, ihd, renal failure
[2017-10-01 12:00] VITALS: BP 126/82
[2017-10-01 13:28] LABS: ABSOLUTE BASOPHIL COUNT 0 /CUMM (0.0-0.2); ABSOLUTE EOSINOPHIL COUNT 0.4 /CUMM (0.0-0.7); ABSOLUTE GRANULOCYTE CT 5.3 /CUMM (1.4-6.5); PLATELET COUNT 228 /CUMM (130-400)
[2017-10-01 13:57] LABS: ABSOLUTE LYMPH COUNT 0.6 /CUMM (1.2-3.4); ABSOLUTE MONOCYTE COUNT 0.6 /CUMM (0.10-0.60); BASOPHIL % 0.6 % (0.0-2.0); EOSINOPHIL % 5.2 % (0-5); GRANULOCYTE % 76.3 % (42.2-75.2); MEAN CORPUSCULAR HGB 30.8 PG (27.0-31.0); MEAN CORPUSCULAR HGB CONC 32.9 G/DL (33.0-37.0); MEAN CORPUSCULAR VOLUME 93.5 FL (80.0-94.0); MEAN PLATELET VOLUME 7.8 FL (7.4-10.4); RBC DISTRIBUTION WIDTH 20.8 % (11.5-14.5)
[2017-10-01 13:58] LABS: HEMATOCRIT 27.4 % (42-52); RED BLOOD CELL CT 2.93 /CUMM (4.70-6.10)
[2017-10-01 16:00] VITALS: BP 110/56
--- NOTE | 2017-10-01 16:39 | Cons- Nephrology ---
General Information and HPI Consulting Request Date of Consult: 10/01/17 Requested By: Ricardo BROWN,Mansoor Reason for Consult: Acute kidney injury Source of Information: patient, old records Exam Limitations: no limitations History of Present Illness: Asked to see this 66-year-old gentleman because of acute on chronic kidney disease. Patient was admitted with anemia. The concerns being [place] whether or not he has had bleeding from the GI tract or an episode of epistaxis. Keep in mind he has a 30 year history of diabetes with what appears to be chronic kidney disease with a baseline creatinine of 1.6 1.8. Nephrology earlier this year with another episode of AK I after a fall. This seemed to resolve with replacement of his volume. In the interim, he has had a redo CABG with an aVR. He denies any dysuria or polyuria. He denies any difficulty with voiding. He does have a history of stones. Reviewing the old records he did have a yes of UL with Dr. Ledesma in 2009. I did not review to see what sort of stone he had. Of note, he had an 11 cm right kidney with a 13 cm left in July. It may be helpful to obtain a bladder scan to check for a post void residual. Allergies/Medications Allergies: Coded Allergies: No Known Allergies (09/30/17) Home Med List: Ascorbate Calcium (Vitamin C) 500 MG TABLET 500 MG PO DAILY SUPPLEMENT ( Reported) Aspirin (Ecotrin*) 81 MG TABLET.DR 1 TAB PO DAILY HEART HEALTH (Reported) Atorvastatin Calcium 80 MG TABLET 1 TAB PO DAILY CHOLESTEROL (Reported) Budesonide/Formoterol Fumarate (Symbicort 160-4.5 Mcg Inhaler) 160 MCG-4.5 MCG/ ACTUATION HFA.AER.AD 2 PUF INH BID BREATHING PROBLEMS (Reported) Clopidogrel Bisulfate (Plavix) 75 MG TABLET 1 TAB PO DAILY BLOOD THINNER ( Reported) Cyanocobalamin (Vitamin B-12) 1,000 MCG TABLET 1 TAB PO DAILY SUPPLEMENT ( Reported) Ergocalciferol (Vitamin D2) (Vitamin D2) 50,000 UNIT CAPSULE 1 TAB PO QSUN SUPPLEMENT (Reported) Ezetimibe (Zetia) 10 MG TABLET 10 MG PO DAILY CHOLESTEROL (Reported) Ferrous Sulfate 325 MG (65 MG IRON) TABLET 1 TAB PO TID SUPPLEMENT (Reported) Fish Oil/Dha/Epa (Fish Oil 1,200 MG Fish Oil) 1,200 MG-144 MG-216 MG CAPSULE 1 CAP PO DAILY SUPPLEMENT (Reported) Furosemide (Lasix) 40 MG TABLET 1 TAB PO DAILY CHF Insulin Glargine,Hum.rec.anlog (Lantus Solostar) 100 UNIT/ML (3 ML) INSULN.PEN 6 UNIT SC DAILY DIABETES (Reported) Insulin Lispro (Humalog) (Unknown Strength) VIAL (Unknown Dose) SC TIDAC DIABETES (Reported) Levothyroxine Sodium (Synthroid) 25 MCG TABLET 0.025 MG PO DAILY AC HYPOTHYROIDISM . Lisinopril 2.5 MG TABLET 1 TAB PO DAILY HEART (Reported) Lorazepam (Ativan) 0.5 MG TABLET 1 TAB PO BID ANXIETY (Reported) Mupirocin 2 % OINT...G. 1 TULIO TOP BID TIP OF NOSE (Reported) apply to affected area(s) Nitroglycerin (Nitroglycerin Patch) 0.4 MG/HOUR PATCH.TD24 1 PATCH TOP Q12 CHEST PAIN . Oxycodone HCl 5 MG TABLET 1 TAB PO Q4 HRS NEEDED PRN PAIN (Reported) Pantoprazole Sodium 40 MG TABLET.DR 1 TAB PO BID GI (Reported) Polyethylene Glycol 3350 (Miralax) 17 GRAM POWD.PACK 1 PAC PO DAILY CONSTIPATION (Reported) dissolve in water Sertraline HCl 50 MG TABLET 50 MG PO DAILY DEPRESSION (Reported) Current Medications: Current Medications Sig/Salome Start time Last Medication Dose Route Stop Time Status Admin Atorvastatin Calcium 80 MG 1700 10/01 1700 AC PO Budesonide/ 2 PUF BID 10/01 1000 AC 10/01 Formoterol Fumarate INH 1016 Calcium Gluconate 0 .STK-MED ONE 09/308 DC IV Calcium Gluconate 1 GM ONCE ONE 09/30 2100 DC 09/30 Sodium Chloride 100 ML IV 09/30 2159 2116 Cyanocobalamin/ 1 BAG DAILY 10/01 1400 CAN Thiamine/Pyridoxine IV Dextrose/Water 1,000 ML Cyanocobalamin/ 1 BAG DAILY 10/01 1247 DC Thiamine/Pyridoxine IV Sodium Chloride 1,000 ML Dextrose/Sodium 1,000 ML Q10H 09/30 2345 DC 10/01 Chloride IV 10/01 0944 0312 Furosemide 20 MG ONCE ONE 10/01 1115 DC 10/01 IV PUSH 10/01 1116 1137 Insulin Aspart 0 TIDAC 10/01 0800 CAN SC Insulin Human Regular 1 UNITS .STK-MED ONE 10/01 0625 DC IV 10/01 0626 Insulin Human Regular 0 Q6 09/30 2359 AC 10/01 SC 0638 Levothyroxine Sodium 0.025 MG DAILY AC 10/01 0700 AC 10/01 PO 0639 Lorazepam 0.5 MG BID 10/01 1000 AC 10/01 PO 10/08 0959 1016 Melatonin 5 MG AT BEDTIME PRN 09/30 2345 AC 10/01 PO 0048 Oxycodone HCl 5 MG Q4 HRS NEEDED PRN 09/30 2345 AC PO Oxycodone/ 1 TAB ONCE ONE 10/01 0445 DC 10/01 Acetaminophen PO 10/01 0446 0450 Pantoprazole Sodium 0 .STK-MED ONE 09/30 2236 DC IV Pantoprazole Sodium 40 MG BID 09/30 2217 AC 10/01 IV 1016 Ramelteon 8 MG .STK-MED ONE 10/01 1450 DC PO 10/01 1451 Ramelteon 8 MG ONCE ONE 10/01 0215 DC 10/01 PO 10/01 0216 0218 Sertraline HCl 50 MG DAILY 10/01 1000 AC 10/01 PO 1016 Sodium Chloride 1,000 ML BOLUS ONE 09/30 2100 DC 09/30 IV 09/30 2159 211 Review of Systems Review of Systems Constitutional: Reports: no symptoms. EENTM: Denies: blurred vision, double vision, visual changes, epistaxis, nasal pain, throat pain. Cardiovascular: Denies: chest pain, edema, orthopena, palpitations. Respiratory: Denies: hemoptysis, orthopnea, short of breath. GI: Reports: no symptoms. Denies: abdominal pain, diarrhea, distention, bloody stool, changes in stool. Genitourinary: Denies: dysuria, frequency, hematuria, hesitation. Musculoskeletal: Reports: joint pain. Skin: Reports: no symptoms. Neurological/Psychological: Denies: weakness. Hematologic/Endocrine: Denies: bruising, bleeding. 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 Ledesma Family History Relations & Conditions If Any: FATHER (CAD). , Age 40-50; Cause: CAD (coronary artery disease). MOTHER (Pancreatic cancer). BROTHER (HTN). Psychosocial History Where Do You Live? Home Who Do You Live With? spouse Services at Home: Nursing Primary Language: Telugu Smoking Status: Former Smoker (Quit August 14, year hx) ETOH Use: denies use Illicit Drug Use: denies illicit drug use Functional Ability ADLs Independent: dressing, eating, toileting, bathing. Ambulation: independent IADLs Independent: shopping, housework, finances, food prep, telephone, transportation , medication admin. Exam & Diagnostic Data Vital Signs and I&O Vital Signs Date Time Temp Pulse Resp B/P B/P Pulse O2 O2 Flow FiO2 Mean Ox Delivery Rate 10/01 1200 97.6 50 18 126/82 10/01 1200 97 Room Air Room Air 10/01 0800 98.1 48 20 112/60 10/01 0800 97 Room Air Room Air 10/01 0800 98.1 48 16 112/60 96 Room Air Room Air 10/01 0400 98.7 56 22 122/55 10/01 0400 96 Room Air 10/01 0000 98.0 59 20 140/60 10/01 0000 97 Room Air 10/01 0000 98.4 56 16 140/60 96 Room Air 09/30 2231 98.6 65 18 122/59 97 Room Air 09/30 2213 98.7 55 16 122/59 99 Room Air 09/30 1925 98.2 55 15 118/55 95 Room Air Room Air Intake & Output 10/01 1600 10/01 0400 09/30 1600 09/30 0400 09/29 1600 09/29 0400 Intake Total 2070 1000 Output Total 1350 Balance 720 1000 Intake, Blood 1000 Product Intake, IV 1045 1000 Intake, Oral 25 0 Number 0 Bowel Movements Output, Urine 1350 Patient 166 lb Weight Weight Bed scale Measurement Method Physical Exam General Appearance: well developed/nourished, no apparent distress, alert, awake Head: atraumatic, normal appearance, active bleeding Eyes: Bilateral: EOMI, pale conjunctivae. Ears, Nose, Throat: normal pharynx, normal ENT inspection Neck: normal inspection, supple Respiratory: normal breath sounds, chest non-tender Cardiovascular: regular rate/rhythm Peripheral Pulses: 3+ popliteal (R), 3+ popliteal (L) Gastrointestinal: normal bowel sounds, soft, non-tender, no organomegaly Back: normal inspection Assessment/Plan Assessment/Recommendations Assessment: 1. Acute kidney injury. Already this seems to be getting better. His creatinines around 2.1. He does not seem to be particularly aware of any episodes of bleeding 2. History of her aortic stenosis status post aVR with CABG 2 3. Coronary artery disease. This post coronary artery bypass grafting 2 also status post PTCA 4. Anemia. Looking through the labs, it seems that the anemia even predates the episode of bleeding. There is a reported history of ethanol use though he denies this at this point. His degree of anemia seems to be out of proportion to his degree of renal impairment. 5. Chronic kidney disease. Patient's serum creatinine seems to have been running roughly 1.6-1.8 creatinines for the past year or so. This likely represents diabetic nephrosclerosis however he does not seem to have significant proteinuria. This would also raise the issue as to whether or not this is hypertensive nephrosclerosis. It may be helpful to repeat the random protein to creatinine ratio. He does have a history of microalbuminuria, however, it does not seem to be a history of yin proteinuria which one would expect with diabetic nephropathy. 6. History of peripheral vascular disease status post a bypass to the left leg Recommendations: 1. Please repeat a random urine protein creatinine ratio 2. We will also consider reticulocyte count 3. Would repeat iron studies as well as B12/ folate levels.
[2017-10-01 20:00] VITALS: BP 137/89
--- NOTE | 2017-10-01 20:39 | Cons- Gastroenterology ---
General Information and HPI Consulting Request Date of Consult: 10/01/17 Requested By: Ricardo BROWN,Mansoor Reason for Consult: Anemia Source of Information: patient, old records History of Present Illness: Patient presented with severe anemia, found by blood work ordered by his PCP. He has been weak, tired and lethargic. He has had some dyspnea, on exertion only. He's had no chest pain, diaphoresis, syncope. He denies heartburn, indigestion/dyspepsia, abdominal pain, change in bowel habits. His stool is dark on iron, but not frankly melenic, and without bright red blood. He is status post recent CABG, AVR, and placement of drug-eluting stent into the LCx. He is on aspirin and Plavix. EGD and colonoscopy were performed on September 07 for similar presentation, and were unrevealing (colonoscopy had poor preparation ). Allergies/Medications Allergies: Coded Allergies: No Known Allergies (09/30/17) Home Med List: Ascorbate Calcium (Vitamin C) 500 MG TABLET 500 MG PO DAILY SUPPLEMENT ( Reported) Aspirin (Ecotrin*) 81 MG TABLET.DR 1 TAB PO DAILY HEART HEALTH (Reported) Atorvastatin Calcium 80 MG TABLET 1 TAB PO DAILY CHOLESTEROL (Reported) Budesonide/Formoterol Fumarate (Symbicort 160-4.5 Mcg Inhaler) 160 MCG-4.5 MCG/ ACTUATION HFA.AER.AD 2 PUF INH BID BREATHING PROBLEMS (Reported) Clopidogrel Bisulfate (Plavix) 75 MG TABLET 1 TAB PO DAILY BLOOD THINNER ( Reported) Cyanocobalamin (Vitamin B-12) 1,000 MCG TABLET 1 TAB PO DAILY SUPPLEMENT ( Reported) Ergocalciferol (Vitamin D2) (Vitamin D2) 50,000 UNIT CAPSULE 1 TAB PO QSUN SUPPLEMENT (Reported) Ezetimibe (Zetia) 10 MG TABLET 10 MG PO DAILY CHOLESTEROL (Reported) Ferrous Sulfate 325 MG (65 MG IRON) TABLET 1 TAB PO TID SUPPLEMENT (Reported) Fish Oil/Dha/Epa (Fish Oil 1,200 MG Fish Oil) 1,200 MG-144 MG-216 MG CAPSULE 1 CAP PO DAILY SUPPLEMENT (Reported) Furosemide (Lasix) 40 MG TABLET 1 TAB PO DAILY CHF Insulin Glargine,Hum.rec.anlog (Lantus Solostar) 100 UNIT/ML (3 ML) INSULN.PEN 6 UNIT SC DAILY DIABETES (Reported) Insulin Lispro (Humalog) (Unknown Strength) VIAL (Unknown Dose) SC TIDAC DIABETES (Reported) Levothyroxine Sodium (Synthroid) 25 MCG TABLET 0.025 MG PO DAILY AC HYPOTHYROIDISM . Lisinopril 2.5 MG TABLET 1 TAB PO DAILY HEART (Reported) Lorazepam (Ativan) 0.5 MG TABLET 1 TAB PO BID ANXIETY (Reported) Mupirocin 2 % OINT...G. 1 TULIO TOP BID TIP OF NOSE (Reported) apply to affected area(s) Nitroglycerin (Nitroglycerin Patch) 0.4 MG/HOUR PATCH.TD24 1 PATCH TOP Q12 CHEST PAIN . Oxycodone HCl 5 MG TABLET 1 TAB PO Q4 HRS NEEDED PRN PAIN (Reported) Pantoprazole Sodium 40 MG TABLET.DR 1 TAB PO BID GI (Reported) Polyethylene Glycol 3350 (Miralax) 17 GRAM POWD.PACK 1 PAC PO DAILY CONSTIPATION (Reported) dissolve in water Sertraline HCl 50 MG TABLET 50 MG PO DAILY DEPRESSION (Reported) Current Medications: Current Medications Sig/Salome Start time Last Medication Dose Route Stop Time Status Admin Aspirin 81 MG DAILY 10/01 2001 AC PO Atorvastatin Calcium 80 MG 1700 10/01 1700 AC 10/01 PO 1847 Budesonide/ 2 PUF BID 10/01 1000 AC 10/01 Formoterol Fumarate INH 1016 Calcium Gluconate 0 .STK-MED ONE 09/30 2108 DC IV Calcium Gluconate 1 GM ONCE ONE 09/30 2100 DC 09/30 Sodium Chloride 100 ML IV 09/30 2159 2116 Cyanocobalamin/ 1 BAG DAILY 10/01 1400 CAN Thiamine/Pyridoxine IV Dextrose/Water 1,000 ML Cyanocobalamin/ 1 BAG DAILY 10/01 1247 DC Thiamine/Pyridoxine IV Sodium Chloride 1,000 ML Dextrose/Sodium 1,000 ML Q10H 09/30 2345 DC 10/01 Chloride IV 10/01 0944 0312 Furosemide 20 MG ONCE ONE 10/01 1115 DC 10/01 IV PUSH 10/01 1116 1137 Insulin Aspart 0 TIDAC 10/01 0800 CAN SC Insulin Human Regular 1 UNITS .STK-MED ONE 10/01 0625 DC IV 10/01 0626 Insulin Human Regular 0 Q6 09/30 2359 AC 10/01 SC 0638 Levothyroxine Sodium 0.025 MG DAILY AC 10/01 0700 AC 10/01 PO 0639 Lorazepam 0.5 MG BID 10/01 1000 AC 10/01 PO 10/08 0959 1016 Melatonin 5 MG AT BEDTIME PRN 09/30 2345 AC 10/01 PO 0048 Oxycodone HCl 5 MG Q4 HRS NEEDED PRN 09/30 2345 AC PO Oxycodone/ 1 TAB ONCE ONE 10/01 0445 DC 10/01 Acetaminophen PO 10/01 0446 0450 Pantoprazole Sodium 0 .STK-MED ONE 09/30 2236 DC IV Pantoprazole Sodium 40 MG BID 09/30 2217 AC 10/01 IV 1016 Ramelteon 8 MG ONCE ONE 10/01 2015 DC PO 10/01 2016 Ramelteon 8 MG .STK-MED ONE 10/01 1450 DC PO 10/01 1451 Ramelteon 8 MG ONCE ONE 10/01 0215 DC 10/01 PO 10/01 0216 0218 Sertraline HCl 50 MG DAILY 10/01 1000 AC 10/01 PO 1016 Sodium Chloride 1,000 ML BOLUS ONE 09/30 2100 DC 09/30 IV 09/30 2159 2116 Past History Travel History Traveled to [place] past 21 day No Medical History Blood Transfusion Hx: Yes Neurological: GAIT ABDNORMALITY WEAKNESS EENT: NONE Cardiovascular: aortic stenosis, CAD, hypertension, hyperlipidemia, NSTEMI, PVD Respiratory: NONE Gastrointestinal: NONE Hepatic: NONE Renal: urinary incontinence, CKD Musculoskeletal: CHRONIC OSTEOMYLITIS LFT FOOT- TOES AMP X5 RGHT FOOT- TOES AMP X4 Psychiatric: depression Endocrine: diabetes Blood Disorders: NONE 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 amputation of 9 toes PTCA ESWL by Dr. Ledesma Family History Relations & Conditions If Any: FATHER (CAD). , Age 40-50; Cause: CAD (coronary artery disease). MOTHER (Pancreatic cancer). BROTHER (HTN). Psychosocial History Where Do You Live? Home Who Do You Live With? spouse Services at Home: Nursing Primary Language: Bahamian Smoking Status: Former Smoker (Quit August 14, year hx) ETOH Use: denies use Illicit Drug Use: denies illicit drug use Functional Ability ADLs Independent: dressing, eating, toileting, bathing. Ambulation: independent IADLs Independent: shopping, housework, finances, food prep, telephone, transportation , medication admin. Review of Systems Review of Systems Constitutional: Reports: weakness. Denies: chills, fever. EENTM: Denies: icterus, epistaxis. Cardiovascular: Denies: chest pain, syncope. Respiratory: Reports: short of breath. Denies: cough. GI: Reports: see HPI. Genitourinary: Denies: dysuria, hematuria. Musculoskeletal: Denies: muscle stiffness, neck pain. Skin: Denies: jaundice, lesions. Neurological/Psychological: Denies: cognitive dysfunction, confusion. Hematologic/Endocrine: Denies: bruising, bleeding. Exam & Diagnostic Data Vital Signs and I&O Vital Signs Date Time Temp Pulse Resp B/P B/P Pulse O2 O2 Flow FiO2 Mean Ox Delivery Rate 10/01 1600 97.9 50 20 110/56 10/01 1600 97.9 50 20 110/56 95 Room Air Room Air 10/01 1600 97 Room Air Room Air 10/01 1200 97.6 50 18 126/82 10/01 1200 97 Room Air Room Air 10/01 0800 98.1 48 20 112/60 10/01 0800 97 Room Air Room Air 10/01 0800 98.1 48 16 112/60 96 Room Air Room Air 10/01 0400 98.7 56 22 122/55 10/01 0400 96 Room Air 10/01 0000 98.0 59 20 140/60 10/01 0000 97 Room Air 10/01 0000 98.4 56 16 140/60 96 Room Air 09/30 2231 98.6 65 18 122/59 97 Room Air 09/30 2213 98.7 55 16 122/59 99 Room Air Intake & Output 10/01 1600 10/01 0400 09/30 1600 09/30 0400 09/29 1600 09/29 0400 Intake Total 2070 1000 Output Total 1350 Balance 720 1000 Intake, Blood 1000 Product Intake, IV 1045 1000 Intake, Oral 25 0 Number 0 Bowel Movements Output, Urine 1350 Patient 166 lb Weight Weight Bed scale Measurement Method Physical Exam: Well-developed, well-nourished, in no apparent distress. Alert and oriented with normal cognition. Skin normal without rash, lesion, jaundice, stigmata of chronic liver disease, petechiae, mottling. No adenopathy. Sclera anicteric. Oropharynx normal. Neck supple without thyromegaly or mass. Heart regular rhythm. Lungs clear bilaterally. Abdomen soft and nondistended with normal bowel sounds, no tenderness, mass or organomegaly. Extremities without clubbing , cyanosis or edema. Intact distal pulses. Results Pertinent Lab Results: Laboratory Tests 10/01 1205 Chemistry Sodium (137 - 145 mmol/L) 141 Potassium (3.5 - 5.1 mmol/L) 5.1 Chloride (98 - 107 mmol/L) 111 H Carbon Dioxide (22 - 30 mmol/L) 18 L Anion Gap (5 - 16) 12 BUN (9 - 20 mg/dL) 113 *H Creatinine (0.7 - 1.2 mg/dL) 2.1 H Estimated GFR (>60 ml/min) 32 L Glucose (65 - 99 mg/dL) 122 H Calcium (8.4 - 10.2 mg/dL) 9.2 Phosphorus (2.5 - 4.5 mg/dL) 6.0 H Magnesium (1.6 - 2.3 mg/dL) 2.5 H Iron (49 - 181 ug/dL) 87 Total Bilirubin (0.2 - 1.3 mg/dL) 0.7 AST (17 - 59 U/L) 17 ALT (21 - 72 U/L) 27 Troponin I (<0.11 ng/ml) 0.15 *H Albumin (3.5 - 5.0 g/dL) 3.4 L Vitamin B12 (239 - 931 pg/mL) > 1000 H Folate (2.76 - 20.0 ng/mL) > 20.0 H Hematology CBC w Diff Pending NO MAN DIFF REQ WBC (4.8 - 10.8 /CUMM) Pending 7.0 RBC (4.70 - 6.10 /CUMM) Pending 2.93 L Hgb (14.0 - 18.0 G/DL) Pending 9.0 L Hct (42 - 52 %) Pending 27.4 L MCV (80.0 - 94.0 FL) Pending 93.5 MCH (27.0 - 31.0 PG) Pending 30.8 RDW (11.5 - 14.5 %) Pending 20.8 H Plt Count (130 - 400 /CUMM) Pending 228 MPV (7.4 - 10.4 FL) Pending 7.8 Gran % (42.2 - 75.2 %) 76.3 H Lymphocytes % (20.5 - 51.1 %) 9.1 L Monocytes % (1.7 - 9.3 %) 8.8 Eosinophils % (0 - 5 %) 5.2 H Basophils % (0.0 - 2.0 %) 0.6 Absolute Granulocytes (1.4 - 6.5 /CUMM) 5.3 Absolute Lymphocytes (1.2 - 3.4 /CUMM) 0.6 L Absolute Monocytes (0.10 - 0.60 /CUMM) 0.6 Absolute Eosinophils (0.0 - 0.7 /CUMM) 0.4 Absolute Basophils (0.0 - 0.2 /CUMM) 0 PUBS MCHC (33.0 - 37.0 G/DL) Pending 32.9 L 10/01 10/01 0425 0300 Chemistry Sodium (137 - 145 mmol/L) 138 Potassium (3.5 - 5.1 mmol/L) 5.1 Chloride (98 - 107 mmol/L) 110 H Carbon Dioxide (22 - 30 mmol/L) 17 L Anion Gap (5 - 16) 11 BUN (9 - 20 mg/dL) 121 *H Creatinine (0.7 - 1.2 mg/dL) 2.3 H Estimated GFR (>60 ml/min) 29 L Glucose (65 - 99 mg/dL) 109 H Calcium (8.4 - 10.2 mg/dL) 9.0 Phosphorus (2.5 - 4.5 mg/dL) 6.0 H Magnesium (1.6 - 2.3 mg/dL) 2.5 H Total Bilirubin (0.2 - 1.3 mg/dL) 0.4 AST (17 - 59 U/L) 16 L ALT (21 - 72 U/L) 28 Troponin I (<0.11 ng/ml) 0.17 *H Albumin (3.5 - 5.0 g/dL) 3.3 L Hematology CBC w Diff NO MAN DIFF REQ WBC (4.8 - 10.8 /CUMM) 7.4 RBC (4.70 - 6.10 /CUMM) 2.34 L Hgb (14.0 - 18.0 G/DL) 7.4 *L Hct (42 - 52 %) 21.8 L MCV (80.0 - 94.0 FL) 93.2 MCH (27.0 - 31.0 PG) 31.4 H RDW (11.5 - 14.5 %) 21.2 H Plt Count (130 - 400 /CUMM) 244 MPV (7.4 - 10.4 FL) 7.7 Gran % (42.2 - 75.2 %) 74.3 Lymphocytes % (20.5 - 51.1 %) 9.6 L Monocytes % (1.7 - 9.3 %) 10.1 H Eosinophils % (0 - 5 %) 5.4 H Basophils % (0.0 - 2.0 %) 0.6 Absolute Granulocytes (1.4 - 6.5 /CUMM) 5.5 Absolute Lymphocytes (1.2 - 3.4 /CUMM) 0.7 L Absolute Monocytes (0.10 - 0.60 /CUMM) 0.7 H Absolute Eosinophils (0.0 - 0.7 /CUMM) 0.4 Absolute Basophils (0.0 - 0.2 /CUMM) 0 PUBS MCHC (33.0 - 37.0 G/DL) 33.7 Retic Count (0.5 - 2.0 %) 3.87 H Haptoglobin Pending 10/01 09/30 0005 2000 Chemistry Sodium (137 - 145 mmol/L) 140 Potassium (3.5 - 5.1 mmol/L) 5.4 H Chloride (98 - 107 mmol/L) 105 Carbon Dioxide (22 - 30 mmol/L) 18 L Anion Gap (5 - 16) 16 BUN (9 - 20 mg/dL) 141 *H Creatinine (0.7 - 1.2 mg/dL) 2.4 H Estimated GFR (>60 ml/min) 27 L BUN/Creatinine Ratio (7 - 25 %) 58.8 H Glucose (65 - 99 mg/dL) 148 H Calcium (8.4 - 10.2 mg/dL) 9.4 Total Bilirubin (0.2 - 1.3 mg/dL) 0.4 AST (17 - 59 U/L) 19 ALT (21 - 72 U/L) 26 Alkaline Phosphatase (< 127 U/L) 89 Lactate Dehydrogenase (313 - 618 U/L) 552 Troponin I (<0.11 ng/ml) 0.18 *H Total Protein (6.3 - 8.2 g/dL) 8.0 Albumin (3.5 - 5.0 g/dL) 3.8 Globulin (1.9 - 4.2 gm/dL) 4.2 Albumin/Globulin Ratio (1.1 - 2.2 %) 0.9 L Vitamin B12 (239 - 931 pg/mL) > 1000 H Folate (2.76 - 20.0 ng/mL) > 20.0 H TSH (0.270 - 4.200 uIU/mL) 2.660 Free T4 (0.78 - 2.44 ng/dL) 1.18 Coagulation PT (9.4 - 12.5 SEC) 14.2 H INR (0.90 - 1.17) 1.36 H APTT (25 - 37 SEC) 31 Hematology CBC w Diff NO MAN DIFF REQ WBC (4.8 - 10.8 /CUMM) 8.2 RBC (4.70 - 6.10 /CUMM) 1.95 L Hgb (14.0 - 18.0 G/DL) 6.1 *L Hct (42 - 52 %) 18.5 *L MCV (80.0 - 94.0 FL) 95.0 H MCH (27.0 - 31.0 PG) 31.2 H RDW (11.5 - 14.5 %) 23.3 H Plt Count (130 - 400 /CUMM) 277 MPV (7.4 - 10.4 FL) 7.6 Gran % (42.2 - 75.2 %) 78.0 H Lymphocytes % (20.5 - 51.1 %) 8.2 L Monocytes % (1.7 - 9.3 %) 8.6 Eosinophils % (0 - 5 %) 4.7 Basophils % (0.0 - 2.0 %) 0.5 Absolute Granulocytes (1.4 - 6.5 /CUMM) 6.4 Absolute Lymphocytes (1.2 - 3.4 /CUMM) 0.7 L Absolute Monocytes (0.10 - 0.60 /CUMM) 0.7 H Absolute Eosinophils (0.0 - 0.7 /CUMM) 0.4 Absolute Basophils (0.0 - 0.2 /CUMM) 0 PUBS MCHC (33.0 - 37.0 G/DL) 32.8 L Urines Urine Color (YEL,AMB,STR) YEL Urine Clarity (CLEAR) CLEAR Urine pH (5.0 - 8.0) 6.0 Ur Specific [place] (1.001 - 1.035) 1.015 Urine Protein (NEG,<30 MG/DL) NEG Urine Ketones (NEG) NEG Urine Nitrite (NEG) NEG Urine Bilirubin (NEG) NEG Urine Urobilinogen (0.1 - 1.0 EU/dl) 0.2 Ur Leukocyte Esterase (NEG) NEG Ur Microscopic EXAM NOT REQUIRED Urine Hemoglobin (NEG) NEG Urine Glucose (N MG/DL) NEG Assessment/Plan Assessment/Recommendations: Recurrent anemia. This is likely multifactorial, including possible occult GI bleeding, chronic kidney disease, etc. The patient's hemoglobin has risen appropriately to 3 units of packed red blood cells. He has no significant GI symptoms. Recommendations * Clear liquid diet. Nothing by mouth after midnight. * If CBC stable tomorrow, advance diet to heart healthy. If there is an unexpected drop in hemoglobin, will consider EGD. * Outpatient capsule endoscopy (PillCam) study. * Continue aspirin; hold Plavix for now Consult Acknowledgment - Thank you for your consult request.
[2017-10-01 20:55] LABS: ABSOLUTE BASOPHIL COUNT 0 /CUMM (0.0-0.2); ABSOLUTE EOSINOPHIL COUNT 0.3 /CUMM (0.0-0.7); ABSOLUTE GRANULOCYTE CT 5.8 /CUMM (1.4-6.5); ABSOLUTE LYMPH COUNT 0.5 /CUMM (1.2-3.4); ABSOLUTE MONOCYTE COUNT 0.6 /CUMM (0.10-0.60); BASOPHIL % 0.4 % (0.0-2.0); EOSINOPHIL % 4.1 % (0-5); GRANULOCYTE % 79.9 % (42.2-75.2); HEMATOCRIT 27.1 % (42-52); MEAN CORPUSCULAR HGB 30.9 PG (27.0-31.0); MEAN CORPUSCULAR HGB CONC 33.1 G/DL (33.0-37.0); MEAN CORPUSCULAR VOLUME 93.4 FL (80.0-94.0); MEAN PLATELET VOLUME 7.2 FL (7.4-10.4); PLATELET COUNT 244 /CUMM (130-400); RBC DISTRIBUTION WIDTH 20.3 % (11.5-14.5); WHITE BLOOD CELL COUNT 7.2 /CUMM (4.8-10.8)
--- NOTE | 2017-10-01 22:32 | Cons- Cardiology ---
General Information and HPI Consulting Request Date of Consult: 10/01/17 Requested By: Ricardo BROWN,Mansoor History of Present Illness: Mr. Almanzar is a 66 year old male with history of diabetes, coronary artery disease s/p NM with stent placement to the LCX, renal insufficiency and aortic stenosis. He was initially seen in the ER last April for evaluation of mental status changes which apparently tend to occur when the patient has worsening of his renal function. He has also had a recent admission for a GI bleed. During this admission he had a rise in his cardiac troponin and therefore had repeat cardiac catheterization followed by bypass surgery and bioprosthetic aortic valve replacement. Yesterday, this patient presented was told to go to the ER for a blood transfusion after labs ordered by his PCP showed severe anemia. The patient had been feeling a bit tired but otherwise denies chest discomfort, shortness of breath, lightheadedness or palpitations. He was found to be guaiac positive with no gross bleeding. He also has a borderline increased troponin in the setting of renal insufficiency. This patient's echo shows a mild to moderately decreased EF of 40% with mid to distal and apical inferoseptal severe hypokinesis. Mild left ventricular hypertrophy was noted. The RV appeared D-shaped consistent wtih increased RV pressures. The left atrium is markedly enlarged with mild right atrial enlargement. Moderate pulmonary hypertension was noted. In terms of cardiac valves there is mild MR, moderate TR, trace to mild PI and moderate aortic stenosis with mild AI. Allergies/Medications Allergies: Coded Allergies: No Known Allergies (09/30/17) Home Med List: Ascorbate Calcium (Vitamin C) 500 MG TABLET 500 MG PO DAILY SUPPLEMENT ( Reported) Aspirin (Ecotrin*) 81 MG TABLET.DR 1 TAB PO DAILY HEART HEALTH (Reported) Atorvastatin Calcium 80 MG TABLET 1 TAB PO DAILY CHOLESTEROL (Reported) Budesonide/Formoterol Fumarate (Symbicort 160-4.5 Mcg Inhaler) 160 MCG-4.5 MCG/ ACTUATION HFA.AER.AD 2 PUF INH BID BREATHING PROBLEMS (Reported) Clopidogrel Bisulfate (Plavix) 75 MG TABLET 1 TAB PO DAILY BLOOD THINNER ( Reported) Cyanocobalamin (Vitamin B-12) 1,000 MCG TABLET 1 TAB PO DAILY SUPPLEMENT ( Reported) Ergocalciferol (Vitamin D2) (Vitamin D2) 50,000 UNIT CAPSULE 1 TAB PO QSUN SUPPLEMENT (Reported) Ezetimibe (Zetia) 10 MG TABLET 10 MG PO DAILY CHOLESTEROL (Reported) Ferrous Sulfate 325 MG (65 MG IRON) TABLET 1 TAB PO TID SUPPLEMENT (Reported) Fish Oil/Dha/Epa (Fish Oil 1,200 MG Fish Oil) 1,200 MG-144 MG-216 MG CAPSULE 1 CAP PO DAILY SUPPLEMENT (Reported) Furosemide (Lasix) 40 MG TABLET 1 TAB PO DAILY CHF Insulin Glargine,Hum.rec.anlog (Lantus Solostar) 100 UNIT/ML (3 ML) INSULN.PEN 6 UNIT SC DAILY DIABETES (Reported) Insulin Lispro (Humalog) (Unknown Strength) VIAL (Unknown Dose) SC TIDAC DIABETES (Reported) Levothyroxine Sodium (Synthroid) 25 MCG TABLET 0.025 MG PO DAILY AC HYPOTHYROIDISM . Lisinopril 2.5 MG TABLET 1 TAB PO DAILY HEART (Reported) Lorazepam (Ativan) 0.5 MG TABLET 1 TAB PO BID ANXIETY (Reported) Mupirocin 2 % OINT...G. 1 TULIO TOP BID TIP OF NOSE (Reported) apply to affected area(s) Nitroglycerin (Nitroglycerin Patch) 0.4 MG/HOUR PATCH.TD24 1 PATCH TOP Q12 CHEST PAIN . Oxycodone HCl 5 MG TABLET 1 TAB PO Q4 HRS NEEDED PRN PAIN (Reported) Pantoprazole Sodium 40 MG TABLET.DR 1 TAB PO BID GI (Reported) Polyethylene Glycol 3350 (Miralax) 17 GRAM POWD.PACK 1 PAC PO DAILY CONSTIPATION (Reported) dissolve in water Sertraline HCl 50 MG TABLET 50 MG PO DAILY DEPRESSION (Reported) Review of Systems Review of Systems: A review of systems is remarkable for a nosebleed. 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 amputation of 9 toes PTCA ESWL by Dr. Ledesma Family History Relations & Conditions If Any: FATHER (CAD). , Age 40-50; Cause: CAD (coronary artery disease). MOTHER (Pancreatic cancer). BROTHER (HTN). Psychosocial History Where Do You Live? Home Who Do You Live With? spouse Services at Home: Nursing Primary Language: Congolese Smoking Status: Former Smoker (Quit August 14 year hx) ETOH Use: denies use Illicit Drug Use: denies illicit drug use Functional Ability ADLs Independent: dressing, eating, toileting, bathing. Ambulation: independent IADLs Independent: shopping, housework, finances, food prep, telephone, transportation , medication admin. Exam & Diagnostic Data Vital Signs and I&O Vital Signs Date Time Temp Pulse Resp B/P B/P Pulse O2 O2 Flow FiO2 Mean Ox Delivery Rate 10/01 1600 97.9 50 20 110/56 10/01 1600 97.9 50 20 110/56 95 Room Air Room Air 10/01 1600 97 Room Air Room Air 10/01 1200 97.6 50 18 126/82 10/01 1200 97 Room Air Room Air 10/01 0800 98.1 48 20 112/60 10/01 0800 97 Room Air Room Air 10/01 0800 98.1 48 16 112/60 96 Room Air Room Air 10/01 0400 98.7 56 22 122/55 10/01 0400 96 Room Air 10/01 0000 98.0 59 20 140/60 10/01 0000 97 Room Air 10/01 0000 98.4 56 16 140/60 96 Room Air 09/30 2231 98.6 65 18 122/59 97 Room Air Intake & Output 10/01 1600 10/01 0800 10/01 0000 09/30 1600 09/30 0800 09/30 0000 Intake Total 975 1095 1000 Output Total 700 650 Balance 258 833 9882 Intake, Blood 350 650 Product Intake, IV 133 723 9233 Intake, Oral 25 0 Number 0 Bowel Movements Output, Urine 700 650 Patient 166 lb Weight Weight Bed scale Measurement Method Physical Exam: General: Wd/WN male in NAD; alert and oriented x 3 HEENT: NC/AT, PERRL, EOMI Neck: no JVD, no carotid bruit Heart: RRR with 2/6 systolic murmur Lungs: clear bilaterally Abdomen: soft, NT, +ve bowel sounds Extremities: no edema Assessment/Plan Assessment/Plan * This patient has bleeding of unclear source and is likely a persistent but slow bleed. An anemia workup is recommended to assess whether the anemia is completely related to bleeding as opposed to decreased production or destruction of RBC's. If active bleeding is suspected then stop the patient's aspirin and Plavix. Ideally, this patient should remain on antiplatelet agents since he is less than 6 months out from stent placement. * In regard to the patient's troponin rise, it is very mild and is likely due to mild relative ischemia related to increased demand from severe anemia and decrease supply due to the same condition. In addition, the patient likely has decreased renal clearance due to his renal insufficiency. * Hold patient's ACEI due to worsening renal insufficiency. Consult Acknowledgment - Thank you for your consult request.
[2017-10-02] VITALS: BP 110/60; BP 115/54
[2017-10-02 04:00] VITALS: BP 131/57
[2017-10-02 06:27] LABS: ABSOLUTE BASOPHIL COUNT 0.1 /CUMM (0.0-0.2); ABSOLUTE EOSINOPHIL COUNT 0.5 /CUMM (0.0-0.7); ABSOLUTE GRANULOCYTE CT 5.9 /CUMM (1.4-6.5); ABSOLUTE LYMPH COUNT 0.6 /CUMM (1.2-3.4); ABSOLUTE MONOCYTE COUNT 0.7 /CUMM (0.10-0.60); BASOPHIL % 0.7 % (0.0-2.0); EOSINOPHIL % 5.9 % (0-5); MEAN CORPUSCULAR HGB 31.3 PG (27.0-31.0); MEAN CORPUSCULAR HGB CONC 33.8 G/DL (33.0-37.0); MEAN CORPUSCULAR VOLUME 92.7 FL (80.0-94.0); MEAN PLATELET VOLUME 6.7 FL (7.4-10.4); PLATELET COUNT 241 /CUMM (130-400); RED BLOOD CELL CT 2.81 /CUMM (4.70-6.10); WHITE BLOOD CELL COUNT 7.8 /CUMM (4.8-10.8)
[2017-10-02 08:00] VITALS: BP 110/60
--- NOTE | 2017-10-02 09:17 | PN- Resident CRCU ---
Subjective HPI/CRCU Issues: #1 Symptomatic anemia with weakness, lethargy, near syncopal episodes #2 Elevated troponins #3.GRECIA on CKD stage 3 #4 recent AVR and CABG #5 hyperkalemia #6 history of diabetes #7 right shoulder injury/fracture 24 Hour Events: Patient is doing well this morning. No episodes of overt bleeding. H&H 8.05/30 status post 3 units of blood transfusion. Heart rate continues to be 50-60. Has been restarted on the aspirin and Plavix as per cardiology recommendations since there is no active bleeding, and patient has placement of stents less than 6 months ago. Objective Vital Signs & I&O Last 8 Hrs of Vitals and I&O: J Exam General Appearance: well developed/nourished, no apparent distress, alert, awake , comfortable Head: atraumatic, normal appearance Ears, Nose, Throat: normal pharynx Neck: normal inspection Respiratory: normal breath sounds, chest non-tender, no respiratory distress Cardiovascular: regular rate/rhythm, systolic murmur Gastrointestinal: normal bowel sounds, soft, non-tender Extremities: normal inspection, no edema Current Medications: Current Medications Sig/Salome Start time Last Medication Dose Route Stop Time Status Admin Aspirin 81 MG DAILY 10/01 2001 AC 10/01 PO 2147 Atorvastatin Calcium 80 MG 1700 10/01 1700 AC 10/01 PO 1847 Budesonide/ 2 PUF BID 10/01 1000 AC 10/01 Formoterol Fumarate INH 2147 Clopidogrel Bisulfate 75 MG DAILY 10/01 2300 AC 10/01 PO 2345 Cyanocobalamin/ 1 BAG DAILY 10/01 1400 CAN Thiamine/Pyridoxine IV Dextrose/Water 1,000 ML Cyanocobalamin/ 1 BAG DAILY 10/01 1247 DC Thiamine/Pyridoxine IV Sodium Chloride 1,000 ML Dextrose/Sodium 1,000 ML Q10H 09/30 2345 DC 10/01 Chloride IV 10/01 0944 0312 Furosemide 20 MG ONCE ONE 10/01 1115 DC 10/01 IV PUSH 10/01 1116 1137 Insulin Human Regular 0 Q6 09/30 2359 AC 10/01 SC 0638 Levothyroxine Sodium 0.025 MG DAILY AC 10/01 0700 AC 10/02 PO 0618 Lorazepam 0.5 MG BID 10/01 1000 AC 10/01 PO 10/08 0959 2147 Melatonin 5 MG .STK-MED ONE 10/01 2146 DC PO 10/01 214 Melatonin 5 MG AT BEDTIME PRN 09/30 2345 AC 10/01 PO 0048 Oxycodone HCl 5 MG Q4 HRS NEEDED PRN 09/30 2345 DC 10/01 PO 2151 Oxycodone/ 1 TAB ONCE ONE 10/015 DC 10/01 Acetaminophen PO 10/01 2346 2346 Pantoprazole Sodium 40 MG BID 09/307 AC 10/01 IV 7 Ramelteon 8 MG ONCE ONE 10/01 2015 DC 10/01 PO 10/01 Ramelteon 8 MG .STK-MED ONE 10/01 1450 DC PO 10/01 1451 Sertraline HCl 50 MG DAILY 10/01 1000 AC 10/01 PO 1016 Impression/Plan Impression/Problem List Impression: Patient is a 66 yo M with past medical history of CAD s/p [place] with strent to LCX, recent bovine AVR with two-vessel CABG at [place] (Aug 2017), 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 Blood work done on 09/30/2017 (at [facility]) which showed H/H 5.9/17.8 and elevated BUN 135. Vitals in ED: HR 55-65, BP 122/59, sats 99% RA. Orthostats were negative: Lying BP 105/64 --> Sitting BP 98/47. Guaiac positive in the ER Labs: H/H 6.1/18.5 (9.2/27.5 on Sep 11 on discharge), macrocytic anemia, INR 1.36 , K 5.4, bicarb 18, BUN 141, creat 2.4 (baseline 1.8-2.1), glucose 148, LFTs normal, trop 0.18. Echo (2016): EF 30-40% with anterior and distal septal akinesis, mild to moderate TR, mild pulmonary hypertension. EKG: SR, RBBB (old), first degree AV block, Qtc 484. CXR: small right pleural effusion with atelectasis, mild subsegmental atelectasis at left lung base. Assessment and plan #1 Symptomatic anemia with weakness, lethargy, near syncopal episodes: H&H 8.8/ S/P 3 units of RPBC -Has been downgraded to [facility] -No signs of overt bleeding. H&H stable -Reticulocyte count high, haptoglobin pending a normal lactate dehydrogenase -Orthostats negative -Plan for outpatient [facility]. Since patient had recent endoscopy and colonoscopy in September which were negative -Aspirin has been restarted as per GI/cardio recommendations .Patient got 1 dose of Plavix yesterday. We will restart Plavix after touching base with cardiology today. #2 Elevated troponins: No chest pain, no EKG changes from baseline. Likely secondary to severe anemia and poor renal clearance. -Troponins have trended down. -No need to repeat echocardiogram -Aspirin restarted, holding Plavix, plan to resume after talking to cardiology -Is held due to worsening renal function #3.GRECIA on CKD stage 3 -Creatinine improved this morning to 1.8. -Patient received gentle fluid hydration. -Holding lasix, lisinopril -Urine random protein and creatinine pending. -Nephrology consult appreciated #4 recent AVR and CABG -Aspirin and Plavix was on hold due to GI bleed. However he has been restarted on aspirin. Plan to restart Plavix after touching base with cardiology. -Cardiology Consult appreciated -No need to repeat echocardiogram #5 hyperkalemia -Received 1 dose of calcium gluconate in the ER, -Potassium this morning 5.4. will recheck later today. #6 history of diabetes -3 times a day Accu-Cheks = NovoLog sliding scale -Diet advanced to a diabetic diet with 2 g sodium restriction and 2 g potassium restriction #7 right shoulder injury/fracture -Patient scheduled for a outpatient follow-up with Dr. Denis for reverse surgery . MRI (Jul 2017) shows large tear of supraspinatous tendon, distracted fracture at junction of spine of scapula and acromion process. -OT consult DVT prophylaxis Alps Full code Problem List: 1. Symptomatic anemia 2. Rotator cuff injury 3. Hyperkalemia 4. Acute on chronic renal insufficiency 5. Elevated troponin Pain Ratin Pain Location: na Tomorrow's Labs & Rationales: cbc icu lab bundle Plan DVT/Prophylaxis: mechanical
--- NOTE | 2017-10-02 10:21 | PN- CRCU ---
Subjective HPI/Critical Care Issues: Doing ok stable no sig bleeding noted Hemoglobin stable Objective Current Medications: Current Medications Sig/Salome Start time Last Medication Dose Route Stop Time Status Admin Aspirin 81 MG DAILY 10/01 2001 AC 10/02 PO 1009 Atorvastatin Calcium 80 MG 1700 10/01 1700 AC 10/01 PO 1847 Budesonide/ 2 PUF BID 10/01 1000 AC 10/02 Formoterol Fumarate INH 1010 Clopidogrel Bisulfate 75 MG DAILY 10/01 2300 DC 10/01 PO 2345 Cyanocobalamin/ 1 BAG DAILY 10/01 1400 CAN Thiamine/Pyridoxine IV Dextrose/Water 1,000 ML Cyanocobalamin/ 1 BAG DAILY 10/01 1247 DC Thiamine/Pyridoxine IV Sodium Chloride 1,000 ML Furosemide 20 MG ONCE ONE 10/01 1115 DC 10/01 IV PUSH 10/01 1116 1137 Insulin Aspart 0 TIDAC 10/02 1200 AC SC Insulin Human Regular 0 Q6 09/30 2359 DC 10/01 SC 0638 Levothyroxine Sodium 0.025 MG DAILY AC 10/01 0700 AC 10/02 PO 0618 Lorazepam 0.5 MG BID 10/01 1000 AC 10/02 PO 10/08 0959 1013 Melatonin 5 MG .STK-MED ONE 10/01 2146 DC PO 10/01 2147 Melatonin 5 MG AT BEDTIME PRN 09/30 2345 AC 10/01 PO 0048 Oxycodone HCl 5 MG Q4 HRS NEEDED PRN 09/30 2345 DC 10/01 PO 2151 Oxycodone/ 1 TAB Q6P PRN 10/02 1000 AC 10/02 Acetaminophen PO 1009 Oxycodone/ 1 TAB ONCE ONE 10/01 2345 DC 10/01 Acetaminophen PO 10/01 2346 2346 Pantoprazole Sodium 40 MG BID 09/30 2217 AC 10/02 IV 1003 Ramelteon 8 MG ONCE ONE 10/01 2015 DC 10/01 PO 10/01 Ramelteon 8 MG .STK-MED ONE 10/01 1450 DC PO 10/01 1451 Sertraline HCl 50 MG DAILY 10/01 1000 AC 10/02 PO 1009 Vital Signs & I&O Last 24 Hrs of Vitals and I&O: Vital Signs Date Time Temp Pulse Resp B/P B/P Pulse O2 O2 Flow FiO2 Mean Ox Delivery Rate 10/02 0800 Room Air 12/29 0800 98.0 52 18 110/60 10/02 0800 98.0 52 18 110/60 94 Room Air 10/02 0400 52 18 131/57 10/02 0400 93 Room Air 10/02 0000 98.4 55 20 115/54 10/02 0000 93 Room Air 10/02 0000 98.4 55 20 110/60 93 Room Air 10/01 2000 98.2 70 20 137/89 10/01 1600 97.9 50 20 110/56 10/01 1600 97.9 50 20 110/56 95 Room Air Room Air 10/01 1600 97 Room Air Room Air 10/01 1200 97.6 50 18 126/82 10/01 1200 97 Room Air Room Air Intake & Output 10/02 1600 10/02 0800 10/02 0000 Intake Total 240 Output Total 750 Balance -750 240 Intake, Oral 240 Number 0 Bowel Movements Output, Urine 750 Patient 169 lb Weight Weight Bed scale Measurement Method Impression/Plan Impression/Plan Impression/Plan: General Appearance: well developed/nourished, no apparent distress, alert, awake Head: atraumatic, normal appearance Eyes: Bilateral: normal appearance. Ears, Nose, Throat: normal ENT inspection, DRY MUCOUS MEMBRANES Neck: normal inspection, supple, full range of motion Respiratory: decreased breath sounds, LEFT BASAL CRACKLES Cardiovascular: regular rate/rhythm, systolic murmur Extremities: TRACE PEDAL EDEMA BILATERALLY LEFT >RIGHT, BILATERAL METATARSAL AMPUTATIONS, restricted range of motion in the right shoulder, limited abduction This is a gentleman with history of [place] with previous stent to the circumflex, recent aortic valve replacement and two-vessel CABG in August 2017, chronic systolic heart failure with low ejection fraction, type 2 diabetes with retinopathy, hypertension, peripheral vascular disease with previous amputations in both foot, chronic kidney disease, iron deficiency anemia, was sent in because of severe anemia and significantly elevated BUN. Patient has been feeling weak and tired and he has had near syncopal episodes since he is admitted here. He has had a recent admission with similar symptoms and he did have an upper and lower endoscopy which did not reveal any significant bleeding and he did have a left-sided thoracentesis recently with an exudative pleural effusion which was thought to be related to post cardiotomy effusion. Patient has been on double antiplatelet therapy for his stent and since then he has had epistaxis as well. He was on oxygen before this has been discontinued. Has not been using any NSAIDs. Recently he has been diuresing with Lasix per patient. His history, past history, exam is as above ISSUES * Improved and stableSignificant symptomatic anemia with near syncope with weakness and lethargy probably related to slow GI bleed as patient has disproportionately elevated BUN. Now s/p transfusion and no active bleed and GI and cardio onboard * Significant bradycardia (sinus ed stable) * Chronic kidney disease with disproportionately elevated BUN probably related to his underlying vascular disease and GI bleed * Ischemic heart disease with recent JAYCE stent, aVR and two-vessel CABG now on double antiplatelet therapy * Elevated troponin probably related to severe anemia type II ischemia most likely * Improved Electrolyte abnormality due to above, significant hyperkalemia now being treated, and stable * Small left more than right effusion due to heart disease and post cardiotomy effusion * Diabetes requiring insulin, hypertension, hyperlipidemia, peripheral vascular disease, status post multiple metatarsal amputation, previous osteomyelitis, alcohol abuse, hypothyroidism on appropriate supplementation, chronic constipation appears to be so far stable. RECOMMENDATION Stable JAYCE recent and pt needs DAPT per cardio, please continue if cardio and gi agrees Follow crit daily Watch potassium Cardiology and GI onboard Oxygen to keep sats around 90% Continue Synthroid Hold his lisinopril Avoid narcotics and lorazepam if needed Proton pump inhibitor per Gi Renal evaluation ongoing aswell Discontinue vitamin C Continue his inhalers Continue to rule out for ischemic heart, repeat his electrolytes to evaluate his potassium Pt was critically ill tts 40mins if stable ok to the tele floor later today
--- NOTE | 2017-10-02 10:49 | PN- Nephrology ---
Assessment/Plan Assessment: 1. Acute kidney injury. Already this seems to be getting better. His creatinine is 1.8. He does not seem to be particularly aware of any episodes of bleeding 2. History of her aortic stenosis status post aVR with CABG 2 3. Coronary artery disease. This post coronary artery bypass grafting 2 also status post PTCA 4. Anemia. Looking through the labs, it seems that the anemia even predates the episode of bleeding. There is a reported history of ethanol use though he denies this at this point. His degree of anemia seems to be out of proportion to his degree of renal impairment. 5. Chronic kidney disease. Patient's serum creatinine seems to have been running roughly 1.6-1.8 creatinines for the past year or so. This likely represents diabetic nephrosclerosis however he does not seem to have significant proteinuria. This would also raise the issue as to whether or not this is hypertensive nephrosclerosis. It may be helpful to repeat the random protein to creatinine ratio. He does have a history of microalbuminuria, however, it does not seem to be a history of yin proteinuria which one would expect with diabetic nephropathy. 6. History of peripheral vascular disease status post a bypass to the left leg 7. Would potassium 2 g per day. Suggestion: Please make diet 2 g sodium. Would also weigh every day. Subjective Subjective: Patient looks and feels well. He offers no complaints. Objective Vital Signs and I&Os Vital Signs Date Time Temp Pulse Resp B/P B/P Pulse O2 O2 Flow FiO2 Mean Ox Delivery Rate 10/02 0800 Room Air 10/02 0800 98.0 52 18 110/60 10/02 0800 98.0 52 18 110/60 94 Room Air 10/02 0400 52 18 131/57 10/02 0400 93 Room Air 10/02 0000 98.4 55 20 115/54 10/02 0000 93 Room Air 10/02 0000 98.4 55 20 110/60 93 Room Air 10/01 2000 98.2 70 20 137/89 10/01 1600 97.9 50 20 110/56 10/01 1600 97.9 50 20 110/56 95 Room Air Room Air 10/01 1600 97 Room Air Room Air 10/01 1200 97.6 50 18 126/82 10/01 1200 97 Room Air Room Air Intake & Output 10/02 1600 10/02 0400 10/01 1600 10/01 0400 09/30 1600 09/30 0400 Intake Total 240 2070 1000 Output Total 750 1350 Balance -750 898 653 3441 Intake, Blood 1000 Product Intake, IV 1045 1000 Intake, Oral 240 25 0 Number 0 0 Bowel Movements Output, Urine 750 1350 Patient 169 lb 166 lb Weight Weight Bed scale Bed scale Measurement Method Physical Exam: General Appearance: well developed/nourished, no apparent distress, alert, awake Head: atraumatic, normal appearance, Eyes: Bilateral: EOMI, pale conjunctivae. Neck: normal inspection, supple Respiratory: normal breath sounds, chest non-tender Cardiovascular: regular rate/rhythm Extremities: No edema. Gastrointestinal: normal bowel sounds, soft, non-tender, no organomegaly Back: normal inspection Current Medications: Current Medications Sig/Salome Start time Last Medication Dose Route Stop Time Status Admin Aspirin 81 MG DAILY 10/01 2001 AC 10/02 PO 1009 Atorvastatin Calcium 80 MG 1700 10/01 1700 AC 10/01 PO 1847 Budesonide/ 2 PUF BID 10/01 1000 AC 10/02 Formoterol Fumarate INH 1010 Clopidogrel Bisulfate 75 MG DAILY 10/01 2300 DC 10/01 PO 2345 Cyanocobalamin/ 1 BAG DAILY 10/01 1400 CAN Thiamine/Pyridoxine IV Dextrose/Water 1,000 ML Cyanocobalamin/ 1 BAG DAILY 10/01 1247 DC Thiamine/Pyridoxine IV Sodium Chloride 1,000 ML Furosemide 20 MG ONCE ONE 10/01 1115 DC 10/01 IV PUSH 10/01 1116 1137 Insulin Aspart 0 TIDAC 10/02 1200 AC SC Insulin Human Regular 0 Q6 09/30 2359 DC 10/01 SC 0638 Levothyroxine Sodium 0.025 MG DAILY AC 10/01 0700 AC 10/02 PO 0618 Lorazepam 0.5 MG BID 10/01 1000 AC 10/02 PO / 0959 1013 Melatonin 5 MG .STK-MED ONE 10/01 2146 DC PO 10/01 2147 Melatonin 5 MG AT BEDTIME PRN 09/30 2345 AC 10/01 PO 0048 Oxycodone HCl 5 MG Q4 HRS NEEDED PRN 09/30 2345 MO 10/01 PO 2151 Oxycodone/ 1 TAB Q6P PRN 10/02 1000 AC 10/02 Acetaminophen PO 1009 Oxycodone/ 1 TAB ONCE ONE 10/01 2345 DC 10/01 Acetaminophen PO 10/01 2346 2346 Pantoprazole Sodium 40 MG BID 09/30 2217 AC 10/02 IV 1003 Ramelteon 8 MG ONCE ONE 10/01 2015 DC 10/01 PO 10/01 Ramelteon 8 MG .STK-MED ONE 10/01 1450 DC PO 10/01 1451 Sertraline HCl 50 MG DAILY 10/01 1000 AC 10/02 PO 1009 Results Pertinent Lab Results: Laboratory Tests 10/02 10/02 10/02 UNK 0618 0520 Chemistry Sodium (137 - 145 mmol/L) Cancelled 141 Potassium (3.5 - 5.1 mmol/L) Cancelled 5.4 H Chloride (98 - 107 mmol/L) Cancelled 115 H Carbon Dioxide (22 - 30 mmol/L) Cancelled 17 L Anion Gap (5 - 16) Cancelled 10 BUN (9 - 20 mg/dL) Cancelled 105 *H Creatinine (0.7 - 1.2 mg/dL) Cancelled 1.8 H Estimated GFR (>60 ml/min) 38 L Glucose (65 - 99 mg/dL) Cancelled 85 Calcium (8.4 - 10.2 mg/dL) Cancelled 9.2 Phosphorus (2.5 - 4.5 mg/dL) Cancelled 5.6 H Magnesium (1.6 - 2.3 mg/dL) Cancelled 2.3 Total Bilirubin (0.2 - 1.3 mg/dL) Cancelled 0.7 AST (17 - 59 U/L) Cancelled 29 ALT (21 - 72 U/L) Cancelled 25 Albumin (3.5 - 5.0 g/dL) Cancelled 3.2 L Hematology CBC w Diff NO MAN DIFF REQ WBC (4.8 - 10.8 /CUMM) 7.8 RBC (4.70 - 6.10 /CUMM) 2.81 L Hgb (14.0 - 18.0 G/DL) 8.8 L Hct (42 - 52 %) 26.0 L MCV (80.0 - 94.0 FL) 92.7 MCH (27.0 - 31.0 PG) 31.3 H RDW (11.5 - 14.5 %) 21.0 H Plt Count (130 - 400 /CUMM) 241 MPV (7.4 - 10.4 FL) 6.7 L Gran % (42.2 - 75.2 %) 76.0 H Lymphocytes % (20.5 - 51.1 %) 8.3 L Monocytes % (1.7 - 9.3 %) 9.1 Eosinophils % (0 - 5 %) 5.9 H Basophils % (0.0 - 2.0 %) 0.7 Absolute Granulocytes (1.4 - 6.5 /CUMM) 5.9 Absolute Lymphocytes (1.2 - 3.4 /CUMM) 0.6 L Absolute Monocytes (0.10 - 0.60 /CUMM) 0.7 H Absolute Eosinophils (0.0 - 0.7 /CUMM) 0.5 Absolute Basophils (0.0 - 0.2 /CUMM) 0.1 PUBS MCHC (33.0 - 37.0 G/DL) 33.8 10/01 1205 Chemistry Sodium (137 - 145 mmol/L) 141 Potassium (3.5 - 5.1 mmol/L) 5.1 Chloride (98 - 107 mmol/L) 111 H Carbon Dioxide (22 - 30 mmol/L) 18 L Anion Gap (5 - 16) 12 BUN (9 - 20 mg/dL) 113 *H Creatinine (0.7 - 1.2 mg/dL) 2.1 H Estimated GFR (>60 ml/min) 32 L Glucose (65 - 99 mg/dL) 122 H Calcium (8.4 - 10.2 mg/dL) 9.2 Phosphorus (2.5 - 4.5 mg/dL) 6.0 H Magnesium (1.6 - 2.3 mg/dL) 2.5 H Iron (49 - 181 ug/dL) 87 Total Bilirubin (0.2 - 1.3 mg/dL) 0.7 AST (17 - 59 U/L) 17 ALT (21 - 72 U/L) 27 Troponin I (<0.11 ng/ml) 0.15 *H Albumin (3.5 - 5.0 g/dL) 3.4 L Vitamin B12 (239 - 931 pg/mL) > 1000 H Folate (2.76 - 20.0 ng/mL) > 20.0 H Hematology CBC w Diff NO MAN DIFF REQ NO MAN DIFF REQ WBC (4.8 - 10.8 /CUMM) 7.2 7.0 RBC (4.70 - 6.10 /CUMM) 2.90 L 2.93 L Hgb (14.0 - 18.0 G/DL) 9.0 L 9.0 L Hct (42 - 52 %) 27.1 L 27.4 L MCV (80.0 - 94.0 FL) 93.4 93.5 MCH (27.0 - 31.0 PG) 30.9 30.8 RDW (11.5 - 14.5 %) 20.3 H 20.8 H Plt Count (130 - 400 /CUMM) 244 228 MPV (7.4 - 10.4 FL) 7.2 L 7.8 Gran % (42.2 - 75.2 %) 79.9 H 76.3 H Lymphocytes % (20.5 - 51.1 %) 7.4 L 9.1 L Monocytes % (1.7 - 9.3 %) 8.2 8.8 Eosinophils % (0 - 5 %) 4.1 5.2 H Basophils % (0.0 - 2.0 %) 0.4 0.6 Absolute Granulocytes (1.4 - 6.5 /CUMM) 5.8 5.3 Absolute Lymphocytes (1.2 - 3.4 /CUMM) 0.5 L 0.6 L Absolute Monocytes (0.10 - 0.60 /CUMM) 0.6 0.6 Absolute Eosinophils (0.0 - 0.7 /CUMM) 0.3 0.4 Absolute Basophils (0.0 - 0.2 /CUMM) 0 0 PUBS MCHC (33.0 - 37.0 G/DL) 33.1 32.9 L 10/01 10/01 0425 0300 Chemistry Sodium (137 - 145 mmol/L) 138 Potassium (3.5 - 5.1 mmol/L) 5.1 Chloride (98 - 107 mmol/L) 110 H Carbon Dioxide (22 - 30 mmol/L) 17 L Anion Gap (5 - 16) 11 BUN (9 - 20 mg/dL) 121 *H Creatinine (0.7 - 1.2 mg/dL) 2.3 H Estimated GFR (>60 ml/min) 29 L Glucose (65 - 99 mg/dL) 109 H Calcium (8.4 - 10.2 mg/dL) 9.0 Phosphorus (2.5 - 4.5 mg/dL) 6.0 H Magnesium (1.6 - 2.3 mg/dL) 2.5 H Total Bilirubin (0.2 - 1.3 mg/dL) 0.4 AST (17 - 59 U/L) 16 L ALT (21 - 72 U/L) 28 Troponin I (<0.11 ng/ml) 0.17 *H Albumin (3.5 - 5.0 g/dL) 3.3 L Hematology CBC w Diff NO MAN DIFF REQ WBC (4.8 - 10.8 /CUMM) 7.4 RBC (4.70 - 6.10 /CUMM) 2.34 L Hgb (14.0 - 18.0 G/DL) 7.4 *L Hct (42 - 52 %) 21.8 L MCV (80.0 - 94.0 FL) 93.2 MCH (27.0 - 31.0 PG) 31.4 H RDW (11.5 - 14.5 %) 21.2 H Plt Count (130 - 400 /CUMM) 244 MPV (7.4 - 10.4 FL) 7.7 Gran % (42.2 - 75.2 %) 74.3 Lymphocytes % (20.5 - 51.1 %) 9.6 L Monocytes % (1.7 - 9.3 %) 10.1 H Eosinophils % (0 - 5 %) 5.4 H Basophils % (0.0 - 2.0 %) 0.6 Absolute Granulocytes (1.4 - 6.5 /CUMM) 5.5 Absolute Lymphocytes (1.2 - 3.4 /CUMM) 0.7 L Absolute Monocytes (0.10 - 0.60 /CUMM) 0.7 H Absolute Eosinophils (0.0 - 0.7 /CUMM) 0.4 Absolute Basophils (0.0 - 0.2 /CUMM) 0 PUBS MCHC (33.0 - 37.0 G/DL) 33.7 Retic Count (0.5 - 2.0 %) 3.87 H Haptoglobin Pending 10/01 09/30 0005 1999 Chemistry Sodium (137 - 145 mmol/L) 140 Potassium (3.5 - 5.1 mmol/L) 5.4 H Chloride (98 - 107 mmol/L) 105 Carbon Dioxide (22 - 30 mmol/L) 18 L Anion Gap (5 - 16) 16 BUN (9 - 20 mg/dL) 141 *H Creatinine (0.7 - 1.2 mg/dL) 2.4 H Estimated GFR (>60 ml/min) 27 L BUN/Creatinine Ratio (7 - 25 %) 58.8 H Glucose (65 - 99 mg/dL) 148 H Calcium (8.4 - 10.2 mg/dL) 9.4 Total Bilirubin (0.2 - 1.3 mg/dL) 0.4 AST (17 - 59 U/L) 19 ALT (21 - 72 U/L) 26 Alkaline Phosphatase (< 127 U/L) 89 Lactate Dehydrogenase (313 - 618 U/L) 552 Troponin I (<0.11 ng/ml) 0.18 *H Total Protein (6.3 - 8.2 g/dL) 8.0 Albumin (3.5 - 5.0 g/dL) 3.8 Globulin (1.9 - 4.2 gm/dL) 4.2 Albumin/Globulin Ratio (1.1 - 2.2 %) 0.9 L Vitamin B12 (239 - 931 pg/mL) > 1000 H Folate (2.76 - 20.0 ng/mL) > 20.0 H TSH (0.270 - 4.200 uIU/mL) 2.660 Free T4 (0.78 - 2.44 ng/dL) 1.18 Coagulation PT (9.4 - 12.5 SEC) 14.2 H INR (0.90 - 1.17) 1.36 H APTT (25 - 37 SEC) 31 Hematology CBC w Diff NO MAN DIFF REQ WBC (4.8 - 10.8 /CUMM) 8.2 RBC (4.70 - 6.10 /CUMM) 1.95 L Hgb (14.0 - 18.0 G/DL) 6.1 *L Hct (42 - 52 %) 18.5 *L MCV (80.0 - 94.0 FL) 95.0 H MCH (27.0 - 31.0 PG) 31.2 H RDW (11.5 - 14.5 %) 23.3 H Plt Count (130 - 400 /CUMM) 277 MPV (7.4 - 10.4 FL) 7.6 Gran % (42.2 - 75.2 %) 78.0 H Lymphocytes % (20.5 - 51.1 %) 8.2 L Monocytes % (1.7 - 9.3 %) 8.6 Eosinophils % (0 - 5 %) 4.7 Basophils % (0.0 - 2.0 %) 0.5 Absolute Granulocytes (1.4 - 6.5 /CUMM) 6.4 Absolute Lymphocytes (1.2 - 3.4 /CUMM) 0.7 L Absolute Monocytes (0.10 - 0.60 /CUMM) 0.7 H Absolute Eosinophils (0.0 - 0.7 /CUMM) 0.4 Absolute Basophils (0.0 - 0.2 /CUMM) 0 PUBS MCHC (33.0 - 37.0 G/DL) 32.8 L Urines Urine Color (YEL,AMB,STR) YEL Urine Clarity (CLEAR) CLEAR Urine pH (5.0 - 8.0) 6.0 Ur Specific [place] (1.001 - 1.035) 1.015 Urine Protein (NEG,<30 MG/DL) NEG Urine Ketones (NEG) NEG Urine Nitrite (NEG) NEG Urine Bilirubin (NEG) NEG Urine Urobilinogen (0.1 - 1.0 EU/dl) 0.2 Ur Leukocyte Esterase (NEG) NEG Ur Microscopic EXAM NOT REQUIRED Urine Hemoglobin (NEG) NEG Urine Glucose (N MG/DL) NEG
--- NOTE | 2017-10-02 11:52 | Transfer of Care Summary ---
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 Recent episode of epistaxis at home after which Plavix was stopped. It was resumed just one day prior to admission. Vitals in ED: HR 55-65, BP 122/59, sats 99% RA. Orthostats were negative: Lying BP 105/64 --> Sitting BP 98/47. Guaiac positive in the ER Labs: H/H 6.1/18.5 (9.2/27.5 on Sep 11 on discharge), macrocytic anemia, INR 1.36 , K 5.4, bicarb 18, BUN 141, creat 2.4 (baseline 1.8-2.1), glucose 148, LFTs normal, trop 0.18. Echo (2016): EF 30-40% with anterior and distal septal akinesis, mild to moderate TR, mild pulmonary hypertension. EKG: SR, RBBB (old), first degree AV block, Qtc 484. CXR: small right pleural effusion with atelectasis, mild subsegmental atelectasis at left lung base. Reason for ICU admission: GI bleed, close monitoring #1 Symptomatic anemia with weakness, lethargy, near syncopal episodes: Patient was closely monitored in the ICU. He was well positive ED. Orthostatics were negative. He was given 1 bag of fluids(caution given low EF). 2 wide core IVs were maintained at all times. Was transfused 3 units of PRBC. Hemoglobin goal was 8 given significant cardiac history. IV Protonix was continued twice a day. Patient's aspirin and Plavix were held. GI evaluated the patient and did not feel the need to scope him immediately as there was no signs of overt bleeding. He was initially maintained nothing by mouth, however diet was advanced since patient remained hemodynamically stable, and there was no plan to pursue any scope. Patient had endoscopy/colonoscopy done recently which were negative. No plan for scope at this time since H&H is stable. Plan is to pursue a PillCam as an outpatient. His aspirin has been resumed. Please restart Plavix after touching base with cardiology Dr. English?(Patient had a recent drug-eluting stent placement less than 6 months ago) #2 Elevated troponins: No chest pain, no EKG changes from baseline. Serial troponins and EKGs were done to rule out ACS. No echocardiogram was repeated as it was recently done. Aspirin and Plavix were held at admission. Statin was continued. The troponin rise was mild and likely secondary to severe anemia leading to demand supply mismatch. Aspirin has been resumed since there is no active bleeding and H&H stable. Please discuss about restarting Plavix with Dr. English since patient had a recent JAYCE placement less than 6 months ago #3.GRECIA on CKD stage 3: Patient maintained on gentle hydration, cautious to allow fluid overload. Lasix and lisinopril was held. Nephrology evaluated the patient and felt this could be diabetic nephrocalcinosis/hypertensive nephrocalcinosis. Regular BP was checked. Nephrotoxins avoided. Creatinine already improving with hydration. Urine random protein and creatinine ratio pending. Please follow-up nephrology recommendations. #4 recent AVR and CABG: Patient had CABG recently with JAYCE in left circumflex and bovine aortic valve replacement. Aspirin and Plavix were initially held due to GI bleed. Cardiology on board. Aspirin has been resumed as there is no signs of acute bleeding. Please discuss with cardiology regarding restarting Plavix. Lasix and lisinopril on hold due to acute kidney injury. #5 hyperkalemia:-Received 1 dose of calcium gluconate in the ER, No EKG changes of hyperkalemia Potassium this morning 5.4. Repeat check at 2 PM. #6 history of diabetes: Accu-Cheks 3 times a day, NovoLog sliding scale, diabetic diet with 2 g sodium and 2 g potassium restriction as per nephrology #7 right shoulder injury/fracture: Patient scheduled for a outpatient follow-up with Dr. Denis for reverse surgery . MRI (Jul 2017) shows large tear of supraspinatous tendon, distracted fracture at junction of spine of scapula and acromion process. Patient is on Percocet for pain control. DVT prophylaxis Alps Full code Consultants: Nephrology, cardiology, GI. Attending Dr. Duarte Assessment/Plan: SEE ABOVE
[2017-10-02 13:11] VITALS: BP 110/60
--- NOTE | 2017-10-02 18:21 | PN- Gastroenterology ---
Assessment/Plan Assessment/Recommendations: Recurrent anemia. This is likely multifactorial, including possible occult GI bleeding, chronic kidney disease, etc. The patient's hemoglobin is stable. He has no significant GI symptoms. Recommendations * Continue heart healthy diet * Daily CBC while in hospital * Outpatient capsule endoscopy (PillCam) study. * Restart Plavix, and continue aspirin Thank you very much for allowing our participation in this patient's case. Please call or reconsult GI as needed during this hospitalization (e.g. overt bleeding, worsening anemia). The patient will follow-up with Dr. Powell following discharge. Subjective Subjective: No overt bleeding. Tolerating regular diet. Objective Vital Signs and I&Os Vital Signs Date Time Temp Pulse Resp B/P B/P Pulse O2 O2 Flow FiO2 Mean Ox Delivery Rate 10/02 1311 97.6 54 20 110/60 91 10/02 0800 Room Air 10/02 0800 98.0 52 18 110/60 10/02 0800 98.0 52 18 110/60 94 Room Air 10/02 0400 52 18 131/57 10/02 0400 93 Room Air 10/02 0000 98.4 55 20 115/54 10/02 0000 93 Room Air 10/02 0000 98.4 55 20 110/60 93 Room Air 10/01 2000 98.2 70 20 137/89 Intake & Output 10/02 1600 10/02 0400 10/01 1600 10/01 0400 09/30 1600 09/30 0400 Intake Total 701 106 1570 1000 Output Total 1400 1350 Balance -600 406 840 7396 Intake, Blood 1000 Product Intake, IV 40 1045 1000 Intake, Oral 760 240 25 0 Number 0 0 Bowel Movements Output, Urine 1400 1350 Patient 169 lb 166 lb Weight Weight Bed scale Bed scale Measurement Method Physical Exam: Alert and oriented. Sclera anicteric. Abdomen soft, nondistended, nontender. Current Medications: Current Medications Sig/Salome Start time Last Medication Dose Route Stop Time Status Admin Aspirin 81 MG DAILY 10/01 2001 AC 10/02 PO 1009 Atorvastatin Calcium 80 MG 1700 10/01 1700 AC 10/02 PO 1648 Budesonide/ 2 PUF BID 10/01 1000 AC 10/02 Formoterol Fumarate INH 1010 Clopidogrel Bisulfate 75 MG DAILY 10/01 2300 DC 10/01 PO 2345 Insulin Aspart 0 TIDAC 10/02 1200 AC 10/02 SC 1648 Insulin Human Regular 0 Q6 09/30 2359 DC 10/01 SC 0638 Levothyroxine Sodium 0.025 MG DAILY AC 10/01 0700 AC 10/02 PO 0618 Lorazepam 0.5 MG BID 10/01 1000 AC 10/02 PO 10/08 0959 1013 Melatonin 5 MG .STK-MED ONE 10/016 DC PO 10/01 2147 Melatonin 5 MG AT BEDTIME PRN 09/30 2345 AC 10/01 PO 0048 Oxycodone HCl 5 MG Q4 HRS NEEDED PRN 09/30 2345 DC 10/01 PO 2151 Oxycodone/ 1 TAB Q6P PRN 10/02 1000 AC 10/02 Acetaminophen PO 165 Oxycodone/ 1 TAB ONCE ONE 10/01 2345 DC 10/01 Acetaminophen PO 10/01 234 234 Pantoprazole Sodium 40 MG BID 09/30 2217 AC 10/02 IV 1003 Ramelteon 8 MG ONCE ONE 10/01 2015 DC 10/01 PO 10/01 Sertraline HCl 50 MG DAILY 10/01 1000 AC 10/02 PO 1009 Results Pertinent Lab Results: Laboratory Tests 10/02 10/02 10/02 1430 UNK 0618 Chemistry Sodium Cancelled Potassium (3.5 - 5.1 mmol/L) 5.0 Cancelled Chloride Cancelled Carbon Dioxide Cancelled Anion Gap Cancelled BUN Cancelled Creatinine Cancelled Glucose Cancelled Calcium Cancelled Phosphorus Cancelled Magnesium Cancelled Total Bilirubin Cancelled AST Cancelled ALT Cancelled Albumin Cancelled Hematology CBC w Diff NO MAN DIFF REQ WBC (4.8 - 10.8 /CUMM) 7.8 RBC (4.70 - 6.10 /CUMM) 2.81 L Hgb (14.0 - 18.0 G/DL) 8.8 L Hct (42 - 52 %) 26.0 L MCV (80.0 - 94.0 FL) 92.7 MCH (27.0 - 31.0 PG) 31.3 H RDW (11.5 - 14.5 %) 21.0 H Plt Count (130 - 400 /CUMM) 241 MPV (7.4 - 10.4 FL) 6.7 L Gran % (42.2 - 75.2 %) 76.0 H Lymphocytes % (20.5 - 51.1 %) 8.3 L Monocytes % (1.7 - 9.3 %) 9.1 Eosinophils % (0 - 5 %) 5.9 H Basophils % (0.0 - 2.0 %) 0.7 Absolute Granulocytes (1.4 - 6.5 /CUMM) 5.9 Absolute Lymphocytes (1.2 - 3.4 /CUMM) 0.6 L Absolute Monocytes (0.10 - 0.60 /CUMM) 0.7 H Absolute Eosinophils (0.0 - 0.7 /CUMM) 0.5 Absolute Basophils (0.0 - 0.2 /CUMM) 0.1 PUBS MCHC (33.0 - 37.0 G/DL) 33.8 10/02 10/01 0520 2022 Chemistry Sodium (137 - 145 mmol/L) 141 Potassium (3.5 - 5.1 mmol/L) 5.4 H Chloride (98 - 107 mmol/L) 115 H Carbon Dioxide (22 - 30 mmol/L) 17 L Anion Gap (5 - 16) 10 BUN (9 - 20 mg/dL) 105 *H Creatinine (0.7 - 1.2 mg/dL) 1.8 H Estimated GFR (>60 ml/min) 38 L Glucose (65 - 99 mg/dL) 85 Calcium (8.4 - 10.2 mg/dL) 9.2 Phosphorus (2.5 - 4.5 mg/dL) 5.6 H Magnesium (1.6 - 2.3 mg/dL) 2.3 Total Bilirubin (0.2 - 1.3 mg/dL) 0.7 AST (17 - 59 U/L) 29 ALT (21 - 72 U/L) 25 Albumin (3.5 - 5.0 g/dL) 3.2 L Hematology CBC w Diff NO MAN DIFF REQ WBC (4.8 - 10.8 /CUMM) 7.2 RBC (4.70 - 6.10 /CUMM) 2.90 L Hgb (14.0 - 18.0 G/DL) 9.0 L Hct (42 - 52 %) 27.1 L MCV (80.0 - 94.0 FL) 93.4 MCH (27.0 - 31.0 PG) 30.9 RDW (11.5 - 14.5 %) 20.3 H Plt Count (130 - 400 /CUMM) 244 MPV (7.4 - 10.4 FL) 7.2 L Gran % (42.2 - 75.2 %) 79.9 H Lymphocytes % (20.5 - 51.1 %) 7.4 L Monocytes % (1.7 - 9.3 %) 8.2 Eosinophils % (0 - 5 %) 4.1 Basophils % (0.0 - 2.0 %) 0.4 Absolute Granulocytes (1.4 - 6.5 /CUMM) 5.8 Absolute Lymphocytes (1.2 - 3.4 /CUMM) 0.5 L Absolute Monocytes (0.10 - 0.60 /CUMM) 0.6 Absolute Eosinophils (0.0 - 0.7 /CUMM) 0.3 Absolute Basophils (0.0 - 0.2 /CUMM) 0 PUBS MCHC (33.0 - 37.0 G/DL) 33.1 10/01 10/01 1205 0425 Chemistry Sodium (137 - 145 mmol/L) 141 138 Potassium (3.5 - 5.1 mmol/L) 5.1 5.1 Chloride (98 - 107 mmol/L) 111 H 110 H Carbon Dioxide (22 - 30 mmol/L) 18 L 17 L Anion Gap (5 - 16) 12 11 BUN (9 - 20 mg/dL) 113 *H 121 *H Creatinine (0.7 - 1.2 mg/dL) 2.1 H 2.3 H Estimated GFR (>60 ml/min) 32 L 29 L Glucose (65 - 99 mg/dL) 122 H 109 H Calcium (8.4 - 10.2 mg/dL) 9.2 9.0 Phosphorus (2.5 - 4.5 mg/dL) 6.0 H 6.0 H Magnesium (1.6 - 2.3 mg/dL) 2.5 H 2.5 H Iron (49 - 181 ug/dL) 87 Total Bilirubin (0.2 - 1.3 mg/dL) 0.7 0.4 AST (17 - 59 U/L) 17 16 L ALT (21 - 72 U/L) 27 28 Troponin I (<0.11 ng/ml) 0.15 *H 0.17 *H Albumin (3.5 - 5.0 g/dL) 3.4 L 3.3 L Vitamin B12 (239 - 931 pg/mL) > 1000 H Folate (2.76 - 20.0 ng/mL) > 20.0 H Hematology CBC w Diff NO MAN DIFF REQ NO MAN DIFF REQ WBC (4.8 - 10.8 /CUMM) 7.0 7.4 RBC (4.70 - 6.10 /CUMM) 2.93 L 2.34 L Hgb (14.0 - 18.0 G/DL) 9.0 L 7.4 *L Hct (42 - 52 %) 27.4 L 21.8 L MCV (80.0 - 94.0 FL) 93.5 93.2 MCH (27.0 - 31.0 PG) 30.8 31.4 H RDW (11.5 - 14.5 %) 20.8 H 21.2 H Plt Count (130 - 400 /CUMM) 228 244 MPV (7.4 - 10.4 FL) 7.8 7.7 Gran % (42.2 - 75.2 %) 76.3 H 74.3 Lymphocytes % (20.5 - 51.1 %) 9.1 L 9.6 L Monocytes % (1.7 - 9.3 %) 8.8 10.1 H Eosinophils % (0 - 5 %) 5.2 H 5.4 H Basophils % (0.0 - 2.0 %) 0.6 0.6 Absolute Granulocytes (1.4 - 6.5 /CUMM) 5.3 5.5 Absolute Lymphocytes (1.2 - 3.4 /CUMM) 0.6 L 0.7 L Absolute Monocytes (0.10 - 0.60 /CUMM) 0.6 0.7 H Absolute Eosinophils (0.0 - 0.7 /CUMM) 0.4 0.4 Absolute Basophils (0.0 - 0.2 /CUMM) 0 0 PUBS MCHC (33.0 - 37.0 G/DL) 32.9 L 33.7 Retic Count (0.5 - 2.0 %) 3.87 H 10/01 10/01 0300 0005 Hematology Haptoglobin Pending Urines Urine Color (YEL,AMB,STR) YEL Urine Clarity (CLEAR) CLEAR Urine pH (5.0 - 8.0) 6.0 Ur Specific [place] (1.001 - 1.035) 1.015 Urine Protein (NEG,<30 MG/DL) NEG Urine Ketones (NEG) NEG Urine Nitrite (NEG) NEG Urine Bilirubin (NEG) NEG Urine Urobilinogen (0.1 - 1.0 EU/dl) 0.2 Ur Leukocyte Esterase (NEG) NEG Ur Microscopic EXAM NOT REQUIRED Urine Hemoglobin (NEG) NEG Urine Glucose (N MG/DL) NEG 09/30 2000 Chemistry Sodium (137 - 145 mmol/L) 140 Potassium (3.5 - 5.1 mmol/L) 5.4 H Chloride (98 - 107 mmol/L) 105 Carbon Dioxide (22 - 30 mmol/L) 18 L Anion Gap (5 - 16) 16 BUN (9 - 20 mg/dL) 141 *H Creatinine (0.7 - 1.2 mg/dL) 2.4 H Estimated GFR (>60 ml/min) 27 L BUN/Creatinine Ratio (7 - 25 %) 58.8 H Glucose (65 - 99 mg/dL) 148 H Calcium (8.4 - 10.2 mg/dL) 9.4 Total Bilirubin (0.2 - 1.3 mg/dL) 0.4 AST (17 - 59 U/L) 19 ALT (21 - 72 U/L) 26 Alkaline Phosphatase (< 127 U/L) 89 Lactate Dehydrogenase (313 - 618 U/L) 552 Troponin I (<0.11 ng/ml) 0.18 *H Total Protein (6.3 - 8.2 g/dL) 8.0 Albumin (3.5 - 5.0 g/dL) 3.8 Globulin (1.9 - 4.2 gm/dL) 4.2 Albumin/Globulin Ratio (1.1 - 2.2 %) 0.9 L Vitamin B12 (239 - 931 pg/mL) > 1000 H Folate (2.76 - 20.0 ng/mL) > 20.0 H TSH (0.270 - 4.200 uIU/mL) 2.660 Free T4 (0.78 - 2.44 ng/dL) 1.18 Coagulation PT (9.4 - 12.5 SEC) 14.2 H INR (0.90 - 1.17) 1.36 H APTT (25 - 37 SEC) 31 Hematology CBC w Diff NO MAN DIFF REQ WBC (4.8 - 10.8 /CUMM) 8.2 RBC (4.70 - 6.10 /CUMM) 1.95 L Hgb (14.0 - 18.0 G/DL) 6.1 *L Hct (42 - 52 %) 18.5 *L MCV (80.0 - 94.0 FL) 95.0 H MCH (27.0 - 31.0 PG) 31.2 H RDW (11.5 - 14.5 %) 23.3 H Plt Count (130 - 400 /CUMM) 277 MPV (7.4 - 10.4 FL) 7.6 Gran % (42.2 - 75.2 %) 78.0 H Lymphocytes % (20.5 - 51.1 %) 8.2 L Monocytes % (1.7 - 9.3 %) 8.6 Eosinophils % (0 - 5 %) 4.7 Basophils % (0.0 - 2.0 %) 0.5 Absolute Granulocytes (1.4 - 6.5 /CUMM) 6.4 Absolute Lymphocytes (1.2 - 3.4 /CUMM) 0.7 L Absolute Monocytes (0.10 - 0.60 /CUMM) 0.7 H Absolute Eosinophils (0.0 - 0.7 /CUMM) 0.4 Absolute Basophils (0.0 - 0.2 /CUMM) 0 PUBS MCHC (33.0 - 37.0 G/DL) 32.8 L
[2017-10-02 22:22] VITALS: BP 112/64
--- NOTE | 2017-10-02 22:41 | PN- Cardiology ---
Subjective Subjective: * Patient remains a bit worn out with no specific complaints of chest discomfort , shortness of breath, lightheadedness or palpitations. * creatinine is improved to 1.8 * Patient remains moderately anemic Objective Vital Signs and I&Os Vital Signs Date Time Temp Pulse Resp B/P B/P Pulse O2 O2 Flow FiO2 Mean Ox Delivery Rate 10/02 2222 98.8 47 20 112/64 92 Room Air 10/02 2000 55 10/02 1311 97.6 54 20 110/60 91 10/02 0800 Room Air 10/02 0800 98.0 52 18 110/60 10/02 0800 98.0 52 18 110/60 94 Room Air 10/02 0400 52 18 131/57 10/02 0400 93 Room Air 10/02 0000 98.4 55 20 115/54 10/02 0000 93 Room Air 10/02 0000 98.4 55 20 11060 93 Room Air Intake & Output 10/02 1600 10/02 0800 10/02 0000 10/01 1600 10/01 0800 10/01 0000 Intake Total 800 779 815 7149 1000 Output Total 650 750 700 650 Balance 150 -750 240 605 370 9152 Intake, Blood 350 650 Product Intake, IV 40 030 946 3152 Intake, Oral 760 240 25 0 Number 0 0 Bowel Movements Output, Urine 650 750 700 650 Patient 169 lb 166 lb Weight Weight Bed scale Bed scale Measurement Method Physical Exam: General: Wd/WN male in NAD; alert and oriented x 3 Neck: no JVD, no carotid bruit Heart: RRR with 2/6 systolic murmur Lungs: clear bilaterally Abdomen: soft, NT, +ve bowel sounds Extremities: no edema Assessment/Plan Assessment/Plan * This patient has bleeding of unclear source and is likely a persistent but slow bleed. An anemia workup is recommended to assess whether the anemia is completely related to bleeding as opposed to decreased production or destruction of RBC's. A pill cam is planned as an outpatient. Restart Plavix and aspirin and follow H/H. * In regard to the patient's troponin rise, it is very mild and is likely due to mild relative ischemia related to increased demand from severe anemia and decrease supply due to the same condition. In addition, the patient likely has decreased renal clearance due to his renal insufficiency. * Hold patient's ACEI due to worsening renal insufficiency. Continue telemetry? Yes
[2017-10-03 06:55] VITALS: BP 110/60
[2017-10-03 08:00] VITALS: BP 110/60
[2017-10-03 08:16] LABS: ABSOLUTE BASOPHIL COUNT 0 /CUMM (0.0-0.2); ABSOLUTE EOSINOPHIL COUNT 0.4 /CUMM (0.0-0.7); ABSOLUTE GRANULOCYTE CT 6.1 /CUMM (1.4-6.5); ABSOLUTE LYMPH COUNT 0.7 /CUMM (1.2-3.4); ABSOLUTE MONOCYTE COUNT 0.6 /CUMM (0.10-0.60); BASOPHIL % 0.4 % (0.0-2.0); EOSINOPHIL % 5.3 % (0-5); HEMATOCRIT 24.9 % (42-52); MEAN CORPUSCULAR HGB 31.8 PG (27.0-31.0); MEAN CORPUSCULAR HGB CONC 33.9 G/DL (33.0-37.0); MEAN CORPUSCULAR VOLUME 93.7 FL (80.0-94.0); MEAN PLATELET VOLUME 7.5 FL (7.4-10.4); PLATELET COUNT 217 /CUMM (130-400); RBC DISTRIBUTION WIDTH 21.1 % (11.5-14.5); RED BLOOD CELL CT 2.66 /CUMM (4.70-6.10); WHITE BLOOD CELL COUNT 7.8 /CUMM (4.8-10.8)
--- NOTE | 2017-10-03 08:27 | PN- Housestaff ---
Reji BROWN,Margareth 10/03/17 0826: Subjective Follow-up For: Symptomatic anemia with weakness, lethargy, near syncopal episodes Subjective: Patient seen and examined. Sitting comfortably in the bed, having breakfast. No overnight acute events. Complains of chronic shoulder pain. Patient is already on pain medications. Review of Systems Constitutional: Reports: see HPI. Objective Last 24 Hrs of Vital Signs/I&O Vital Signs Date Time Temp Pulse Resp B/P B/P Pulse O2 O2 Flow FiO2 Mean Ox Delivery Rate 10/03 0655 99.0 56 20 110/60 91 Room Air 10/03 0400 55 10/03 0000 55 10/03 0000 Room Air 10/02 2222 98.8 47 20 112/64 92 Room Air 10/02 2000 55 10/02 1311 97.6 54 20 110/60 91 Intake & Output 10/03 1600 10/03 0800 10/03 0000 Intake Total 240 120 Output Total 250 250 Balance -10 -130 Intake, Oral 240 120 Number 0 Bowel Movements Output, Urine 250 250 Physical Exam General Appearance: Alert, Oriented X3, Cooperative Cardiovascular: Normal S1, Normal S2 Lungs: Clear to Auscultation Current Medications: Current Medications Sig/Salome Start time Last Medication Dose Route Stop Time Status Admin Aspirin 81 MG DAILY 10/01 2001 AC 10/03 PO 0853 Atorvastatin Calcium 80 MG 1700 10/01 1700 AC 10/02 PO 1648 Budesonide/ 2 PUF BID 10/01 1000 AC 10/03 Formoterol Fumarate INH 0854 Clopidogrel Bisulfate 75 MG DAILY 10/03 1000 AC 10/03 PO 0853 Insulin Aspart 0 TIDAC 10/02 1200 AC 10/02 SC 1648 Levothyroxine Sodium 0.025 MG DAILY AC 10/01 0700 AC 10/03 PO 0532 Lorazepam 0.5 MG BID 10/01 1000 AC 10/03 PO 10/08 0959 0859 Melatonin 5 MG .STK-MED ONE 10/02 2013 DC PO 10/02 2014 Melatonin 5 MG AT BEDTIME PRN 09/30 2345 AC 10/02 PO 2033 Oxycodone/ 1 TAB Q6P PRN 10/02 1000 AC 10/03 Acetaminophen PO 0859 Pantoprazole Sodium 40 MG BID 09/30 2217 AC 10/03 IV 0853 Sertraline HCl 50 MG DAILY 10/01 1000 AC 10/03 PO 0853 Last 24 Hrs of Lab/Sadi Results Last 24 Hrs of Labs/Mics: Laboratory Tests 10/03/17 0640: Anion Gap 12, Estimated GFR 36 L, BUN/Creatinine Ratio 43.7 H, CBC w Diff NO MAN DIFF REQ, RBC 2.66 L, MCV 93.7, MCH 31.8 H, RDW 21.1 H, MPV 7.5, Gran % 78.0 H, Lymphocytes % 8.9 L, Monocytes % 7.4, Eosinophils % 5.3 H, Basophils % 0.4, Absolute Granulocytes 6.1, Absolute Lymphocytes 0.7 L, Absolute Monocytes 0.6, Absolute Eosinophils 0.4, Absolute Basophils 0, PUBS MCHC 33.9 10/02/17 1430: Assessment/Plan Assessment: Patient is a 66 yo M with past medical history of CAD s/p OR with strent to LCX, recent bovine AVR with two-vessel CABG at [place] (Aug 2017), 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Blood work done on 09/30/2017 (at [facility]) which showed H/H 5.9/17.8 and elevated BUN 135. -The patient was initially admitted in ICU and was transferred to telemetry floor for further management. She is being treated and evaluated for following conditions. #1 Symptomatic anemia with weakness, lethargy, near syncopal episodes: Patient was closely monitored in the ICU. He was guaic positive ED. Orthostatics were negative. He was given 1 bag of fluids(caution given low EF).Was transfused 3 units of PRBC. Hemoglobin goal was 8 given significant cardiac history. IV Protonix was continued twice a day. Patient's aspirin and Plavix were held. * Patient had endoscopy/colonoscopy done recently which were negative. No plan for scope at this time since H&H is stable. Evaluated by GI * Plan is to pursue a PillCam as an outpatient. * Antiplatelet therapy restarted as per cardiology * H/H 8.4/25 continue to monitor #2 Elevated troponins: No chest pain, no EKG changes from baseline. Serial troponins and EKGs were done to rule out ACS. No echocardiogram was repeated as it was recently done. Aspirin and Plavix were held at admission. Statin was continued. The troponin rise was mild and likely secondary to severe anemia leading to demand supply mismatch. Patient had a recent JAYCE placement less than 6 months ago * Aspirin and Plavix resumed #3.GRECIA on CKD stage 3: Patient maintained on gentle hydration, cautious to allow fluid overload. Lasix and lisinopril was held. Nephrology evaluated the patient and felt this could be diabetic nephrocalcinosis/hypertensive nephrocalcinosis. Regular BP was checked. Nephrotoxins avoided. * Monitor creatinine curve in setting of GRECIA * Urine random protein and creatinine ratio pending. #4 recent AVR and CABG: Patient had CABG recently with JAYCE in left circumflex and bovine aortic valve replacement. Aspirin and Plavix were initially held due to GI bleed. Cardiology on board. * Aspirin and Plavix resumed * Lasix and lisinopril on hold due to acute kidney injury. #5 hyperkalemia:-Received 1 dose of calcium gluconate in the ER, No EKG changes of hyperkalemia * Resolved #6 history of diabetes: * Accu-Cheks 3 times a day, NovoLog sliding scale, * diabetic diet with 2 g sodium and 2 g potassium restriction as per nephrology #7 right shoulder injury/fracture: Patient scheduled for a outpatient follow-up with Dr. Denis for reverse surgery . MRI (Jul 2017) shows large tear of supraspinatous tendon, distracted fracture at junction of spine of scapula and acromion process. Patient is on Percocet for pain control. * Continue pain control with Percocet DVT prophylaxis Alps Full code Problem List: 1. Hyperkalemia 2. Hyperlipidemia Pain Ratin Pain Location: R shoulder Pain Goal: Pain 4 or less Pain Plan: prn Tomorrow's Labs & Rationales: [facility] Pedro Vo MD 10/03/17 1257: Attending MD Review Statement Attending Statement Attending MD Statement: examined this patient, discuss w/resident/PA/HUMAN RESOURCE ASSISTANT, agreed w/resident/PA/HUMAN RESOURCE ASSISTANT, reviewed EMR data (avail), discussed with nursing, amended to note Attending Assessment/Plan: Patient seen and examined. Transferred out of the ICU yesterday. Chart reviewed. Currently resting comfortably and not in any acute distress. No issues overnight reported by nursing staff. No events on telemetry. He has been sinus bradycardia heart rate ranging from 57. First-degree AV block. Denies nausea vomiting. Denies abdominal pain. Tolerating meals. Denies bloody stools. On examination heart sounds are regular. Lungs are clear bilaterally. Abdomen soft and nontender. He has no peripheral edema. Laboratory data shows the drop in his hemoglobin level from 9.0 following transfusion 2 days ago to 8.4 today. He was resumed on Plavix therapy yesterday. He did have improvement of his creatinine level from a peak of 2.6 down to 1.8 yesterday however creatinine is 1.9 today. Recommendations: -Continue to monitor hemoglobin levels closely monitor patient is back on dual antiplatelet therapy. Decisions continued this will be based on stability of his hemoglobin level. -Continue to monitor serum chemistry to determine trend of his creatinine level. Follow recommendations of the nephrology service. Continue to hold his diuretic therapy and lisinopril. -Mobilize patient as tolerated. -His mildly elevated troponins have been ascribed to demand/supply mismatch. EKG his recent cardiac stent he does require dual antiplatelet therapy. Further ischemic workup will be determined by the cardiology service. -DVT prophylaxis with bilateral compression device.
--- NOTE | 2017-10-03 13:32 | PN- Pulmonary ---
Subjective HPI/Critical Care Issues: Patient seen and examined. Sitting comfortably in the bed, having breakfast. No overnight acute events. Complains of chronic shoulder pain. Patient is already on pain medications. Review of Systems Constitutional: Reports: see HPI. Objective Current Medications: Current Medications Sig/Salome Start time Last Medication Dose Route Stop Time Status Admin Aspirin 81 MG DAILY 10/01 2001 AC 10/03 PO 0853 Atorvastatin Calcium 80 MG 1700 10/01 1700 AC 10/02 PO 1648 Budesonide/ 2 PUF BID 10/01 1000 AC 10/03 Formoterol Fumarate INH 0854 Clopidogrel Bisulfate 75 MG DAILY 10/03 1000 AC 10/03 PO 0853 Insulin Aspart 0 TIDAC 10/02 1200 AC 10/03 SC 1253 Levothyroxine Sodium 0.025 MG DAILY AC 10/01 0700 AC 10/03 PO 0532 Lorazepam 0.5 MG BID 10/01 1000 AC 10/03 PO 10/08 0959 0859 Melatonin 5 MG .STK-MED ONE 10/02 2013 DC PO 10/02 2014 Melatonin 5 MG AT BEDTIME PRN 09/30 2345 AC 10/02 PO 2033 Oxycodone/ 1 TAB Q6P PRN 10/02 1000 AC 10/03 Acetaminophen PO 0859 Pantoprazole Sodium 40 MG BID 09/30 2217 AC 10/03 IV 0853 Sertraline HCl 50 MG DAILY 10/01 1000 AC 10/03 PO 0853 Vital Signs & I&O Last 24 Hrs of Vitals and I&O: Laboratory Tests 10/03 10/02 10/02 0640 1430 UNK Chemistry Sodium (137 - 145 mmol/L) 142 Cancelled Potassium (3.5 - 5.1 mmol/L) 4.9 5.0 Cancelled Chloride (98 - 107 mmol/L) 113 H Cancelled Carbon Dioxide (22 - 30 mmol/L) 17 L Cancelled Anion Gap (5 - 16) 12 Cancelled BUN (9 - 20 mg/dL) 83 H Cancelled Creatinine (0.7 - 1.2 mg/dL) 1.9 H Cancelled Estimated GFR (>60 ml/min) 36 L BUN/Creatinine Ratio (7 - 25 %) 43.7 H Glucose Cancelled Calcium Cancelled Phosphorus Cancelled Magnesium Cancelled Total Bilirubin Cancelled AST Cancelled ALT Cancelled Albumin Cancelled Hematology CBC w Diff NO MAN DIFF REQ WBC (4.8 - 10.8 /CUMM) 7.8 RBC (4.70 - 6.10 /CUMM) 2.66 L Hgb (14.0 - 18.0 G/DL) 8.4 L Hct (42 - 52 %) 24.9 L MCV (80.0 - 94.0 FL) 93.7 MCH (27.0 - 31.0 PG) 31.8 H RDW (11.5 - 14.5 %) 21.1 H Plt Count (130 - 400 /CUMM) 217 MPV (7.4 - 10.4 FL) 7.5 Gran % (42.2 - 75.2 %) 78.0 H Lymphocytes % (20.5 - 51.1 %) 8.9 L Monocytes % (1.7 - 9.3 %) 7.4 Eosinophils % (0 - 5 %) 5.3 H Basophils % (0.0 - 2.0 %) 0.4 Absolute Granulocytes (1.4 - 6.5 /CUMM) 6.1 Absolute Lymphocytes (1.2 - 3.4 /CUMM) 0.7 L Absolute Monocytes (0.10 - 0.60 /CUMM) 0.6 Absolute Eosinophils (0.0 - 0.7 /CUMM) 0.4 Absolute Basophils (0.0 - 0.2 /CUMM) 0 PUBS MCHC (33.0 - 37.0 G/DL) 33.9 10/02 10/02 0618 0520 Chemistry Sodium (137 - 145 mmol/L) 141 Potassium (3.5 - 5.1 mmol/L) 5.4 H Chloride (98 - 107 mmol/L) 115 H Carbon Dioxide (22 - 30 mmol/L) 17 L Anion Gap (5 - 16) 10 BUN (9 - 20 mg/dL) 105 *H Creatinine (0.7 - 1.2 mg/dL) 1.8 H Estimated GFR (>60 ml/min) 38 L Glucose (65 - 99 mg/dL) 85 Calcium (8.4 - 10.2 mg/dL) 9.2 Phosphorus (2.5 - 4.5 mg/dL) 5.6 H Magnesium (1.6 - 2.3 mg/dL) 2.3 Total Bilirubin (0.2 - 1.3 mg/dL) 0.7 AST (17 - 59 U/L) 29 ALT (21 - 72 U/L) 25 Albumin (3.5 - 5.0 g/dL) 3.2 L Hematology CBC w Diff NO MAN DIFF REQ WBC (4.8 - 10.8 /CUMM) 7.8 RBC (4.70 - 6.10 /CUMM) 2.81 L Hgb (14.0 - 18.0 G/DL) 8.8 L Hct (42 - 52 %) 26.0 L MCV (80.0 - 94.0 FL) 92.7 MCH (27.0 - 31.0 PG) 31.3 H RDW (11.5 - 14.5 %) 21.0 H Plt Count (130 - 400 /CUMM) 241 MPV (7.4 - 10.4 FL) 6.7 L Gran % (42.2 - 75.2 %) 76.0 H Lymphocytes % (20.5 - 51.1 %) 8.3 L Monocytes % (1.7 - 9.3 %) 9.1 Eosinophils % (0 - 5 %) 5.9 H Basophils % (0.0 - 2.0 %) 0.7 Absolute Granulocytes (1.4 - 6.5 /CUMM) 5.9 Absolute Lymphocytes (1.2 - 3.4 /CUMM) 0.6 L Absolute Monocytes (0.10 - 0.60 /CUMM) 0.7 H Absolute Eosinophils (0.0 - 0.7 /CUMM) 0.5 Absolute Basophils (0.0 - 0.2 /CUMM) 0.1 PUBS MCHC (33.0 - 37.0 G/DL) 33.8 10/01 2023 Hematology CBC w Diff NO MAN DIFF REQ WBC (4.8 - 10.8 /CUMM) 7.2 RBC (4.70 - 6.10 /CUMM) 2.90 L Hgb (14.0 - 18.0 G/DL) 9.0 L Hct (42 - 52 %) 27.1 L MCV (80.0 - 94.0 FL) 93.4 MCH (27.0 - 31.0 PG) 30.9 RDW (11.5 - 14.5 %) 20.3 H Plt Count (130 - 400 /CUMM) 244 MPV (7.4 - 10.4 FL) 7.2 L Gran % (42.2 - 75.2 %) 79.9 H Lymphocytes % (20.5 - 51.1 %) 7.4 L Monocytes % (1.7 - 9.3 %) 8.2 Eosinophils % (0 - 5 %) 4.1 Basophils % (0.0 - 2.0 %) 0.4 Absolute Granulocytes (1.4 - 6.5 /CUMM) 5.8 Absolute Lymphocytes (1.2 - 3.4 /CUMM) 0.5 L Absolute Monocytes (0.10 - 0.60 /CUMM) 0.6 Absolute Eosinophils (0.0 - 0.7 /CUMM) 0.3 Absolute Basophils (0.0 - 0.2 /CUMM) 0 PUBS MCHC (33.0 - 37.0 G/DL) 33.1 Microbiology Date/Time Procedure - Status Source Growth 09/30 2330 Surveillance Culture - COMP UPPER RESP 09/30 2330 Surveillance Culture - COMP GI Vital Signs Date Time Temp Pulse Resp B/P B/P Pulse O2 O2 Flow FiO2 Mean Ox Delivery Rate 10/03 1200 60 10/03 1000 76 10/03 0800 99.0 86 20 110/60 10/03 0800 91 Room Air 10/03 0655 99.0 56 20 110/60 91 Room Air 10/03 0400 55 10/03 0000 55 10/03 0000 Room Air 10/02 2222 98.8 47 20 112/64 92 Room Air 10/02 2000 55 Intake & Output 10/03 1600 10/03 0800 10/03 0000 Intake Total 240 120 Output Total 250 250 Balance -10 -130 Intake, Oral 240 120 Number 0 Bowel Movements Output, Urine 250 250 Impression/Plan Impression/Plan Impression/Plan: General Appearance: well developed/nourished, no apparent distress, alert, awake Head: atraumatic, normal appearance Eyes: Bilateral: normal appearance. Ears, Nose, Throat: normal ENT inspection, DRY MUCOUS MEMBRANES Neck: normal inspection, supple, full range of motion Respiratory: decreased breath sounds, LEFT BASAL CRACKLES Cardiovascular: regular rate/rhythm, systolic murmur Extremities: TRACE PEDAL EDEMA BILATERALLY LEFT >RIGHT, BILATERAL METATARSAL AMPUTATIONS, restricted range of motion in the right shoulder, limited abduction This is a gentleman with history of CA with previous stent to the circumflex, recent aortic valve replacement and two-vessel CABG in August 2017, chronic systolic heart failure with low ejection fraction, type 2 diabetes with retinopathy, hypertension, peripheral vascular disease with previous amputations in both foot, chronic kidney disease, iron deficiency anemia, was sent in because of severe anemia and significantly elevated BUN. Patient has been feeling weak and tired and he has had near syncopal episodes since he is admitted here. He has had a recent admission with similar symptoms and he did have an upper and lower endoscopy which did not reveal any significant bleeding and he did have a left-sided thoracentesis recently with an exudative pleural effusion which was thought to be related to post cardiotomy effusion. Patient has been on double antiplatelet therapy for his stent and since then he has had epistaxis as well. He was on oxygen before this has been discontinued. Has not been using any NSAIDs. Recently he has been diuresing with Lasix per patient. His history, past history, exam is as above ISSUES * Improved and stableSignificant symptomatic anemia with near syncope with weakness and lethargy probably related to slow GI bleed as patient has disproportionately elevated BUN. Now s/p transfusion and no active bleed and GI and cardio onboard * Significant bradycardia (sinus ed stable) * Chronic kidney disease with disproportionately elevated BUN probably related to his underlying vascular disease and GI bleed * Ischemic heart disease with recent JAYCE stent, aVR and two-vessel CABG now on double antiplatelet therapy * Elevated troponin probably related to severe anemia type II ischemia most likely * Improved Electrolyte abnormality due to above, significant hyperkalemia now being treated, and stable * Small left more than right effusion due to heart disease and post cardiotomy effusion stable does not need to be tapped * Diabetes requiring insulin, hypertension, hyperlipidemia, peripheral vascular disease, status post multiple metatarsal amputation, previous osteomyelitis, alcohol abuse, hypothyroidism on appropriate supplementation, chronic constipation appears to be so far stable. RECOMMENDATION Stable pulm womack JAYCE per cardio Prn lasix Prn nebs Follow crit daily Watch potassium Cardiology and GI onboard Oxygen to keep sats around 90% Continue Synthroid Avoid narcotics and lorazepam if needed Proton pump inhibitor per Gi Continue his inhalers Stable will follow prn call for issues
[2017-10-03 14:06] VITALS: BP 112/60
[2017-10-03 16:00] VITALS: BP 112/60
--- NOTE | 2017-10-03 19:13 | Patient Discharge Instructions ---
Discharge Instructions General Discharge Information You were seen/treated for: acute blood anemia Watch for these problems: fever, bleeding in stool, shortness of breath Special Instructions: follow up with GI within 1 week of d/c follow up with pcp within 1 week of d/c CBC on thr ( 09/07/2107) Diet Continue normal diet: No Recommended Diet: Clear Liquids Activity Activity Self Limited: Yes Acute Coronary Syndrome Inclusion Criteria At DC or during hospital stay patient has or had the following: ACS DIAGNOSIS No Discharge Core Measures Meds if any: Prescribed or Continued at Discharge Meds if any: NOT Prescribed or Continued at Discharge Congestive Heart Failure Inclusion Criteria At DC or during hospital stay patient has or had the following: CHF DIAGNOSIS No Discharge Core Measures Meds if any: Prescribed or Continued at Discharge Meds if any: NOT Prescribed or Continued at Discharge Cerebrovascular accident Inclusion Criteria At DC or during hospital stay patient has or had the following: CVA/TIA Diagnosis No Discharge Core Measures Meds if any: Prescribed or Continued at Discharge Meds if any: NOT Prescribed or Continued at Discharge Venous thromboembolism Inclusion Criteria VTE Diagnosis No VTE Type NONE VTE Confirmed by (Test) NONE Discharge Core Measures - Per Current guidelines, there needs to be overlap - treatment for the first 5 days of Warfarin therapy. - If discharged on Warfarin prior to 5 days of - overlap therapy, the patient will need to be - assessed for post discharge needs including - *Post discharge parental anticoagulation - *Warfarin and/or parental anticoagulation education - *Follow up date to check INR post discharge At least 5 days overlap therapy as Inpatient No Meds if any: Prescribed or Continued at Discharge Note: Overlap Therapy is Warfarin and Anticoagulant Meds if any: NOT Prescribed or Continued at Discharge
[2017-10-03 22:24] VITALS: BP 110/72
[2017-10-04 06:45] VITALS: BP 120/50
[2017-10-04 08:30] LABS: ABSOLUTE BASOPHIL COUNT 0 /CUMM (0.0-0.2); ABSOLUTE EOSINOPHIL COUNT 0.5 /CUMM (0.0-0.7); ABSOLUTE LYMPH COUNT 0.7 /CUMM (1.2-3.4); ABSOLUTE MONOCYTE COUNT 0.7 /CUMM (0.10-0.60); BASOPHIL % 0.3 % (0.0-2.0); EOSINOPHIL % 6.4 % (0-5); GRANULOCYTE % 76.2 % (42.2-75.2); MEAN CORPUSCULAR HGB 31.8 PG (27.0-31.0); MEAN CORPUSCULAR VOLUME 93.6 FL (80.0-94.0); MEAN PLATELET VOLUME 7.4 FL (7.4-10.4); PLATELET COUNT 199 /CUMM (130-400); RBC DISTRIBUTION WIDTH 21.3 % (11.5-14.5); RED BLOOD CELL CT 2.67 /CUMM (4.70-6.10); WHITE BLOOD CELL COUNT 7.9 /CUMM (4.8-10.8)
--- NOTE | 2017-10-04 09:28 | PN- Housestaff ---
Prabhjot Abrams 10/04/17 0928: Subjective Follow-up For: Symptomatic anemia Type II [place] Hyperkalemia GRECIA on CKD Subjective: Patient was seen and examined this morning. He is alert awake and oriented to time place and person. No acute events noticed overnight. Hemoglobin remained stable at 8.5 and 25. Denies any nausea vomiting hematemesis, melena, hematochezia. Denies any shortness of breath. Slept good overnight. Vitals were stable. Heart rate 50, respiratory rate 20, blood pressure 120/50, saturating at room air. Review of Systems Constitutional: Reports: see HPI. Objective Last 24 Hrs of Vital Signs/I&O Vital Signs Date Time Temp Pulse Resp B/P B/P Pulse O2 O2 Flow FiO2 Mean Ox Delivery Rate 10/04 0645 97.9 51 20 120/50 93 Room Air 10/04 0400 54 10/04 0000 Room Air 10/03 2224 98.1 51 20 110/72 93 Room Air 10/03 1600 98.0 52 20 112/60 10/03 1600 93 Room Air 10/03 1406 98.0 52 20 112/60 93 Room Air 10/03 1400 51 10/03 1200 60 Intake & Output 10/04 1600 10/04 0800 10/04 0000 Intake Total 240 920 Output Total 300 350 Balance -60 570 Intake, Oral 240 920 Number 0 0 Bowel Movements Output, Urine 300 350 Physical Exam General Appearance: Alert, Oriented X3, Cooperative, No Acute Distress Skin: No Rashes HEENT: Atraumatic, PERRLA, EOMI, Mucous Membr. moist/pink Neck: Supple, No JVD Lymphatic: Cervical nl Cardiovascular: Regular Rate, Normal S1, Normal S2 Lungs: Normal Air Movement Current Medications: Current Medications Sig/Salome Start time Last Medication Dose Route Stop Time Status Admin Aspirin 81 MG DAILY 10/01 2001 AC 10/04 PO 0831 Atorvastatin Calcium 80 MG 1700 10/01 1700 AC 10/03 PO 1657 Budesonide/ 2 PUF BID 10/01 1000 AC 10/04 Formoterol Fumarate INH 0833 Clopidogrel Bisulfate 75 MG DAILY 10/03 1000 AC 10/04 PO 0833 Insulin Aspart 0 TIDAC 10/02 1200 AC 10/03 SC 1747 Levothyroxine Sodium 0.025 MG DAILY AC 10/01 0700 AC 10/04 PO 0605 Lorazepam 0.5 MG BID 10/01 1000 AC 10/04 PO 10/08 0959 0833 Melatonin 5 MG .STK-MED ONE 10/03 2046 DC PO 10/03 2047 Melatonin 5 MG AT BEDTIME PRN 09/30 2345 AC 10/03 PO 2046 Oxycodone/ 1 TAB Q6P PRN 10/02 1000 AC 10/04 Acetaminophen PO 0833 Pantoprazole Sodium 40 MG BID 09/30 2217 AC 10/04 IV 0833 Sertraline HCl 50 MG DAILY 10/01 1000 AC 10/04 PO 0833 Last 24 Hrs of Lab/Sadi Results Last 24 Hrs of Labs/Mics: Laboratory Tests 10/04/17 0755: Ur Random Creatinine Pending 10/04/17 0755: Urine Color Pending, Urine Clarity Pending, Urine pH Pending, Ur Specific [place] Pending, Urine Protein Pending, Urine Ketones Pending, Urine Nitrite Pending, Urine Bilirubin Pending, Urine Urobilinogen Pending, Ur Leukocyte Esterase Pending, Ur Microscopic Pending, Urine Hemoglobin Pending, Urine Glucose Pending 10/04/17 0635: Anion Gap 9, Estimated GFR 38 L, BUN/Creatinine Ratio 43.9 H, CBC w Diff NO MAN DIFF REQ, RBC 2.67 L, MCV 93.6, MCH 31.8 H, RDW 21.3 H, MPV 7.4, Gran % 76.2 H, Lymphocytes % 8.5 L, Monocytes % 8.6, Eosinophils % 6.4 H, Basophils % 0.3, Absolute Granulocytes 6.0, Absolute Lymphocytes 0.7 L, Absolute Monocytes 0.7 H, Absolute Eosinophils 0.5, Absolute Basophils 0, PUBS MCHC 34.0 Assessment/Plan Assessment: Patient is a 66 yo M with past medical history of CAD s/p [place] with strent to LCX, recent bovine AVR with two-vessel CABG at [place] (Aug 2017), 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 -The patient was initially admitted in ICU and was transferred to telemetry floor for further management. She is being treated and evaluated for following conditions. #1 Symptomatic anemia with weakness, lethargy, near syncopal episodes: Patient was closely monitored in the ICU. He was guaic positive ED. Orthostatics were negative. He was given 1 bag of fluids(caution given low EF).Was transfused 3 units of PRBC. Hemoglobin goal was 8 given significant cardiac history. IV Protonix was continued twice a day. Patient's aspirin and Plavix were held. * Patient had endoscopy/colonoscopy done recently which were negative. No plan for scope at this time since H&H is stable. Evaluated by GI * Plan is to pursue a PillCam as an outpatient. * Antiplatelet therapy restarted as per cardiology * H/H continue to monitor #2 Elevated troponins: No chest pain, no EKG changes from baseline. Serial troponins and EKGs were done to rule out ACS. No echocardiogram was repeated as it was recently done. Aspirin and Plavix were held at admission. Statin was continued. The troponin rise was mild and likely secondary to severe anemia leading to demand supply mismatch. Patient had a recent JAYCE placement less than 6 months ago * Aspirin and Plavix resumed #3.GRECIA on CKD stage 3: Patient maintained on gentle hydration, cautious to allow fluid overload. Lasix and lisinopril was held. Nephrology evaluated the patient and felt this could be diabetic nephrocalcinosis/hypertensive nephrocalcinosis. Regular BP was checked. Nephrotoxins avoided. * Monitor creatinine curve in setting of GRECIA * Urine random protein and creatinine ratio pending. #4 recent AVR and CABG: Patient had CABG recently with JAYCE in left circumflex and bovine aortic valve replacement. Aspirin and Plavix were initially held due to GI bleed. Cardiology on board. * Aspirin and Plavix resumed * Lasix and lisinopril on hold due to acute kidney injury. #5 hyperkalemia:-Received 1 dose of calcium gluconate in the ER, No EKG changes of hyperkalemia * K 5.2 TODAY * Closely monitor potassium levels #6 history of diabetes: * Accu-Cheks 3 times a day, NovoLog sliding scale, * diabetic diet with 2 g sodium and 2 g potassium restriction as per nephrology #7 right shoulder injury/fracture: Patient scheduled for a outpatient follow-up with Dr. Denis for reverse surgery . MRI (Jul 2017) shows large tear of supraspinatous tendon, distracted fracture at junction of spine of scapula and acromion process. Patient is on Percocet for pain control. * Continue pain control with Percocet DVT prophylaxis Alps Full code Problem List: 1. Symptomatic anemia Pain Ratin Pain Location: N/A Pain Goal: Remain pain free Pain Plan: TYLINOL Tomorrow's Labs & Rationales: CBC BEP Gilda BROWN,Pedro 10/04/17 1238: Attending MD Review Statement Attending Statement Attending MD Statement: examined this patient, discuss w/resident/PA/VEGETABLE II FARMWORKER, agreed w/resident/PA/VEGETABLE II FARMWORKER, reviewed EMR data (avail), discussed with nursing, discussed with case mgmt, amended to note Attending Assessment/Plan: Patient seen and examined. Resting comfortably not in acute distress. No issues overnight. No events on telemetry. Sinus bradycardia 50-70 with transient heart rates in the 40s overnight. No new complaints today. Denies nausea vomiting. Denies abdominal pain. He has not had a bowel movement yet. Laboratory data reveals his hemoglobin levels to be stable. Creatinine has improved today. He is stranding close to his baseline. Patient has a history of chronic systolic dysfunction and is on Lasix 40 mg orally daily. He has not been on diuretic therapy while here in the hospital. Case was discussed with the nephrology service today recommends resuming Lasix on alternate days. On examination his lungs are clear bilaterally. He has trace peripheral edema. Recommendations: -Patient to follow-up with the GI service as an outpatient for PillCam testing. Begin patient on Lasix 40 mg every other day starting today. -If creatinine level is stable after dose of Lasix today may discharge home tomorrow. -Repeat CBC in a.m. -Mobilize patient as tolerated. -Repeat chemistry in a.m. to monitor potassium level
[2017-10-04 10:00] VITALS: BP 120/50
--- NOTE | 2017-10-04 11:55 | Event Note ---
Event Note Event Note: Discussed with Dr. Vo, as patients creatinine was high and he was not on Lasix. Despite of poor ejection fraction of 30-40%. We will obtain consult from dye weigher and resume Lasix, and watch for creatinine. Patient will stay for next 24-hour before making decision regarding discharge.
--- NOTE | 2017-10-04 12:16 | Event Note ---
Event Note Event Note: I spoke with Dr. Goddard swine extension field specialist regarding Lasix. Off note patient was on Lasix 40 mg daily for heart failure with reduced ejection fraction. His Lasix was on hold in the hospital because of acute kidney injury. Patient creatinine was 2.4 at the time of admission, trended down to 1.7 after IV hydration. Acute kidney injury improved. * Dr. Goddard recommended to give Lasix 40 mg every 48 hours and monitor creatinine. * Patient will be here for next 24 hours. * Recheck creatinine in the a.m. and plan accordingly. * Patient has to follow-up with PCP and swine extension field specialist closely for monitoring creatinine.
[2017-10-04 14:43] VITALS: BP 118/56
[2017-10-04 16:00] VITALS: BP 118/56
[2017-10-04 23:45] VITALS: BP 112/60
[2017-10-05] VITALS: BP 112/60
[2017-10-05 06:00] VITALS: BP 130/50
[2017-10-05 08:12] LABS: ABSOLUTE BASOPHIL COUNT 0 /CUMM (0.0-0.2); ABSOLUTE EOSINOPHIL COUNT 0.6 /CUMM (0.0-0.7); ABSOLUTE GRANULOCYTE CT 5.5 /CUMM (1.4-6.5); ABSOLUTE LYMPH COUNT 0.8 /CUMM (1.2-3.4); ABSOLUTE MONOCYTE COUNT 0.7 /CUMM (0.10-0.60); BASOPHIL % 0.5 % (0.0-2.0); EOSINOPHIL % 8.4 % (0-5); HEMATOCRIT 25.4 % (42-52); MEAN CORPUSCULAR HGB 31.3 PG (27.0-31.0); MEAN CORPUSCULAR VOLUME 94.8 FL (80.0-94.0); MEAN PLATELET VOLUME 7.5 FL (7.4-10.4); PLATELET COUNT 198 /CUMM (130-400); RBC DISTRIBUTION WIDTH 21.5 % (11.5-14.5); RED BLOOD CELL CT 2.68 /CUMM (4.70-6.10); WHITE BLOOD CELL COUNT 7.6 /CUMM (4.8-10.8)
--- NOTE | 2017-10-05 08:52 | PN- Housestaff ---
Getachew Rosas 10/05/17 0851: Subjective Follow-up For: Symptomatic anemia Type II [place] Hyperkalemia GRECIA on CKD Complaints: no complaints Subjective: Patient was seen and examined this morning. He is alert awake and oriented to time place and person. No acute events noticed overnight. Hemoglobin remained stable at 8.5 >>> 8.4 tody. Denies any CP, palpitation, SOB, nausea vomiting hematemesis, melena, hematochezia. VSS. Review of Systems Constitutional: Reports: no symptoms. Objective Last 24 Hrs of Vital Signs/I&O Vital Signs Date Time Temp Pulse Resp B/P B/P Pulse O2 O2 Flow FiO2 Mean Ox Delivery Rate 10/05 1514 97.1 64 18 130/54 93 10/05 0600 97.7 50 18 130/50 92 Room Air 10/05 0000 98.5 50 20 112/60 10/04 2345 98.5 50 20 112/60 94 Room Air Intake & Output 10/05 1600 10/05 0800 10/05 0000 Intake Total 800 400 750 Output Total 1050 625 Balance 800 -650 125 Intake, IV 20 Intake, Oral 800 400 730 Number 0 Bowel Movements Output, Urine 1050 625 Physical Exam General Appearance: Alert, Oriented X3, Cooperative, No Acute Distress Cardiovascular: Normal S1, Normal S2, No Murmurs Lungs: Clear to Auscultation, Normal Air Movement Abdomen: Soft, No Tenderness, No Hepatospenomegaly Neurological: Normal Speech Extremities: No Edema Assessment/Plan Assessment: Patient is a 66 yo M with past medical history of CAD s/p [place] with strent to LCX, recent bovine AVR with two-vessel CABG at [place] (Aug 2017), 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 -The patient was initially admitted in ICU and was transferred to telemetry floor for further management. She is being treated and evaluated for following conditions. #1 Symptomatic anemia- resolved s/p transfusion #2 Elevated troponins: on ASa and plavix #3.GRECIA on CKD stage 3: GRECIA resolved Problem List: 1. ?SUBARRACHNOID HEMORRHAGE 2. ARF 3. Alcohol abuse 4. Diabetes mellitus 5. Essential hypertension 6. Headache 7. Hyperkalemia 8. Hyperlipidemia 9. NECK PAIN 10. Osteomyelitis 11. Peripheral vascular disease 12. S/P MULTIPLE FALLS 13. Occluded PICC line 14. Fall (on) (from) other stairs and steps, initial encounter 15. Head injury 16. NSTEMI (non-ST elevated myocardial infarction) 17. GRECIA (acute kidney injury) 18. Elevated troponin 19. Acute on chronic renal insufficiency 20. Lung consolidation 21. Pleural effusion 22. Hypoglycemia 23. Hyperkalemia 24. Drug-induced hypoglycemia 25. Rotator cuff injury 26. GI bleed 27. Anemia 28. Symptomatic anemia 29. CHF exacerbation Pain Ratin Pain Location: none Pain Goal: Remain pain free Pain Plan: painpathway Tomorrow's Labs & Rationales: none Gilda BROWN,Pedro 10/05/17 1312: Attending MD Review Statement Attending Statement Attending MD Statement: examined this patient, discuss w/resident/PA/DEMENTIA PROGRAM DIRECTOR, agreed w/resident/PA/DEMENTIA PROGRAM DIRECTOR, reviewed EMR data (avail), discussed with nursing, discussed with case mgmt, amended to note Attending Assessment/Plan: Patient seen and examined. Resting comfortably and was not in acute distress. No issues overnight. Remains alert and oriented 3. He remains hemodynamically stable. Hemoglobin level is essentially stable compared to yesterday. His creatinine level continues to fluctuate close to baseline. On examination lungs are clear bilaterally. Abdomen soft and nontender. He has no peripheral edema. He is medically stable to be discharged today and has been advised to resume his Lasix tomorrow and dose every other day. He is to follow-up with his primary care provider as an outpatient for monitoring of his hemoglobin level as well as creatinine level.
[2017-10-05] MEDS ORDERED: LASIX40 M1 PO ×3 (13:20→16:10)
[2017-10-05 15:14] VITALS: BP 130/54
--- NOTE | 2017-10-06 09:13 | Discharge Summary ---
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 Blood work done on 09/30/2017 (at [facility]) showed H/H 5.9/ 17.8 and elevated BUN 135. Recent episode of epistaxis at home after which Plavix was stopped. It was resumed just one day prior to admission. -Vitals in ED: HR 55-65, BP 122/59, sats 99% RA. Orthostats were negative: Lying BP 105/64 --> Sitting BP 98/47. Guaiac positive in the ER -Labs: H/H 6.1/18.5 (9.2/27.5 on Sep 11 on discharge), macrocytic anemia, INR 1.36, K 5.4, bicarb 18, BUN 141, creat 2.4 (baseline 1.8-2.1), glucose 148, LFTs normal, trop 0.18. -Echo (2016): EF 30-40% with anterior and distal septal akinesis, mild to moderate TR, mild pulmonary hypertension. -EKG: SR, RBBB (old), first degree AV block, Qtc 484. -CXR: small right pleural effusion with atelectasis, mild subsegmental atelectasis at left lung base. -Patient had endoscopy/colonoscopy done recently which were negative. Patient was initially admitted to ICU for close monitoring and later transferred to telemetry floor. He was evaluated and treated for following conditions #Symptomatic anemia with weakness, lethargy, near syncopal episodes: Patient presented with H/H of 6.1/18 along with symptoms of weakness and lethargy. He received 3 units of PRBCs with goal hemoglobin of 8 given significant cardiac history. Patient was evaluated by gastroenterology and felt that the anemia was likely due to gastrointestinal bleeding did not feel the need to scope him immediately as there were no signs of overt bleeding. Patient remained hemodynamically stable and H&H also remained stable after ICU transfer. Plavix and aspirin initially held were restarted after consulting with cardiology and GI * Patient will be evaluated with outpatient capsule endoscopy PillCam study, he has been instructed to follow-up with GI Dr. Powell after discharge * Patient has been provided with a prescription for CBC on thrusday (10/08/2107) to monitor H/H and will require outpatient follow-up #Elevated troponins: On presentation there were no EKG changes from the baseline and patient didnot report chest pain. The rise in troponin was mild and most likely secondary to severe anemia leading to demand supply mismatch. Echocardiogram was not repeated as it was most recently done. #GRECIA on CKD stage 3: Patient presented with BUN 141, creat 2.4. Nephrology evaluated the patient and felt this could be diabetic nephrocalcinosis/ hypertensive nephrocalcinosis. Lasix and lisinopril were held, patient's creatinine returned to baseline to 1.9. Creatinine remains stable after receiving 1 dose of Lasix. * Lisinopril restarted on discharge and patient advised to take Lasix every other day * Patient will require outpatient monitoring of creatinine curve with PCP and Nephrology #Recent AVR and CABG: Patient had CABG recently with JAYCE in left circumflex and bovine aortic valve replacement. Cardiology consulted, Aspirin and Plavix were initially held due to GI bleed and later restarted after stabilization of H/H. * Resume dual antiplatelet therapy, continue lisinopril and Lasix (every other day) #Hyperkalemia:-Received 1 dose of calcium gluconate in the ER, No EKG changes of hyperkalemia * Resolved, Monitor out-patient # History of diabetes: Patient was maintained on Accu-Cheks 3 times a day, NovoLog sliding scale * Patient advised to follow diabetic diet with 2 g sodium and 2 g potassium restriction as per nephrology #Right shoulder injury/fracture: MRI (Jul 2017) showed large tear of supraspinatous tendon, distracted fracture at junction of spine of scapula and acromion process. Patient is on Percocet for pain control. * Patient scheduled for a outpatient follow-up with Dr. Denis for reverse surgery #Patient was full code during his stay. Allergies: Coded Allergies: No Known Allergies (09/30/17) Disposition Summary Disposition Principal Diagnosis: Symptomatic anemia probably due to gastrointestinal bleeding. Near Syncope Additional Diagnosis: GRECIA on CKD stage 3 Discharge Disposition: home health services Discharge Instructions General Discharge Information Code Status: Full Code Patient's Diet: Diabetic diet with 2 g sodium and 2 g potassium restriction as per nephrology Patient's Activity: As tolerated Follow-Up Instructions/Appts: follow up with GI within 1 week of d/c follow up with pcp within 1 week of d/c CBC on thr ( 10/08/2107) Medications at Discharge Discharge Medications: Continue taking these medications: Lorazepam (Ativan) 0.5 MG TABLET 1 Tablet ORAL TWICE DAILY Comments: Last Taken: 10/05/17 Time: 8:12 AM Sertraline HCl (Sertraline HCl) 50 MG TABLET 50 Milligram ORAL DAILY Qty = 90 Comments: Last Taken: 10/05/17 Time: 8:00 AM Ezetimibe (Zetia) 10 MG TABLET 10 Milligram ORAL DAILY Qty = 30 Comments: NOT GIVEN IN HOSPITAL Ergocalciferol (Vitamin D2) (Vitamin D2) 50,000 UNIT CAPSULE 1 Tablet ORAL EVERY THURSDAY Qty = 11 Comments: NOT GIVEN IN HOSPITAL Ferrous Sulfate (Ferrous Sulfate) 325 MG (65 MG IRON) TABLET 1 Tablet ORAL THREE TIMES DAILY Comments: NOT GIVEN IN HOSPITAL Ascorbate Calcium (Vitamin C) 500 MG TABLET 500 Milligram ORAL DAILY Comments: NOT GIVEN IN HOSPITAL Aspirin (Ecotrin*) 81 MG TABLET.DR 1 Tablet ORAL DAILY Comments: Last Taken: 10/05/17 Time: 8:00 AM Clopidogrel Bisulfate (Plavix) 75 MG TABLET 1 Tablet ORAL DAILY Comments: Last Taken: 10/05/17 Time: 8:00 AM Cyanocobalamin (Vitamin B-12) 1,000 MCG TABLET 1 Tablet ORAL DAILY Comments: NOT GIVEN IN HOSPITAL Levothyroxine Sodium (Synthroid) 25 MCG TABLET 0.025 Milligram ORAL DAILY BEFORE BREAKFAST Qty = 30 Instructions: . Comments: Last Taken: 10/05/17 Time: 6:45 AM Nitroglycerin (Nitroglycerin Patch) 0.4 MG/HOUR PATCH.TD24 1 PATCH On the skin EVERY 12 HOURS Qty = 90 Instructions: . Comments: NOT GIVEN IN HOSPITAL Budesonide/Formoterol Fumarate (Symbicort 160-4.5 Mcg Inhaler) 160 MCG-4.5 MCG/ ACTUATION HFA.AER.AD 2 Puff Inhale through mouth TWICE DAILY Comments: Last Taken: 10/05/17 Time: 8:00 AM Insulin Lispro (Humalog) (Unknown Strength) VIAL Unknown Dose Inject into fatty tissue 3 TIMES DAILY BEFORE MEALS Comments: Last Taken: 10/05/17 Time: 12:30 PM Oxycodone HCl (Oxycodone HCl) 5 MG TABLET 1 Tablet ORAL EVERY 4 HOURS NEEDED as needed for PAIN Comments: Last Taken: 10/05/17 Time: 8:12 AM (RECEIVED PERCOCET) Pantoprazole Sodium (Pantoprazole Sodium) 40 MG TABLET.DR 1 Tablet ORAL TWICE DAILY Comments: Last Taken: 10/05/17 Time: 8:00 AM Polyethylene Glycol 3350 (Miralax) 17 GRAM POWD.PACK 1 Packet ORAL DAILY Instructions: dissolve in water Comments: NOT GIVEN- REFUSED Insulin Glargine,Hum.rec.anlog (Lantus Solostar) 100 UNIT/ML (3 ML) INSULN.PEN 6 Unit Inject into fatty tissue DAILY Comments: NOT GIVEN IN HOSPITAL Lisinopril (Lisinopril) 2.5 MG TABLET 1 Tablet ORAL DAILY Comments: NOT GIVEN IN HOSPITAL Fish Oil/Dha/Epa (Fish Oil 1,200 MG Fish Oil) 1,200 MG-144 MG-216 MG CAPSULE 1 Capsule ORAL DAILY Comments: NOT GIVEN IN HOSPITAL Atorvastatin Calcium (Atorvastatin Calcium) 80 MG TABLET 1 Tablet ORAL DAILY Qty = 30 Comments: Last Taken: 10/04/17 Time: 4:30 PM Mupirocin (Mupirocin) 2 % OINT...G. 1 Application On the skin TWICE DAILY Qty = 22 Instructions: apply to affected area(s) Comments: NOT GIVEN IN HOSPITAL The following medications have been changed: Old: Furosemide (Lasix) 40 MG TABLET 1 Tablet ORAL THURSDAY, THURSDAY AND THURSDAY Qty = 60 New: Furosemide (Lasix) 40 MG TABLET 1 Tablet ORAL THURSDAY, THURSDAY AND THURSDAY Qty = 60 Instructions: . Comments: Must be take Every other day NOT GIVEN IN HOSPITAL Copies To: Enoch BROWN,Ruy Molina MD,Everardo Powell MD,Hardik English MD PHD,Roland S. Attending MD Review Statement Documenting Attending: Gilda BROWN,Pedro
== END 2017-10-05 16:38 | disposition home health service (06) | DRG 377 ==
LOC: ERH 19:11 → ERHI 21:50 → CRI 21:50 → ENRESERV 22:20 → CRI 23:05 → 1NO 10-01 09:36 → CRI 10-01 09:36 → 1NO 10-02 12:11 → ENTRNSPT 10-05 16:20 → 1NO 10-05 16:38 → CMPTRNSPT 10-05 16:39
PROVIDERS: Hospitalist; Internal Medicine; Internal Medicine Adolescent Medicine; Physician Assistant Medical; Student in an Organized Health Care Education/Training Program
PROC: 30233N1 Transfusion of Nonautologous Red Blood Cells into Peripheral Vein, Percutaneous Approach (ICD-10-PCS; principal; 2017-10-01)
DX: K92.2 Gastrointestinal hemorrhage, unspecified (principal); I21.A1 Myocardial infarction type 2; N17.9 Acute kidney failure, unspecified; E87.2 Acidosis; E11.22 Type 2 diabetes mellitus with diabetic chronic kidney disease; I27.29 Other secondary pulmonary hypertension; E83.59 Other disorders of calcium metabolism; D62 Acute posthemorrhagic anemia; I13.0 Hypertensive heart and chronic kidney disease with heart failure and stage 1 through stage 4 chronic kidney disease, or unspecified chronic kidney disease; I50.22 Chronic systolic (congestive) heart failure; D50.9 Iron deficiency anemia, unspecified; F10.10 Alcohol abuse, uncomplicated; D53.9 Nutritional anemia, unspecified; M75.121 Complete rotator cuff tear or rupture of right shoulder, not specified as traumatic; E11.51 Type 2 diabetes mellitus with diabetic peripheral angiopathy without gangrene; E11.319 Type 2 diabetes mellitus with unspecified diabetic retinopathy without macular edema; E87.5 Hyperkalemia; I25.10 Atherosclerotic heart disease of native coronary artery without angina pectoris; I25.2 Old myocardial infarction; Z95.5 Presence of coronary angioplasty implant and graft; Z95.2 Presence of prosthetic heart valve; N18.3 Chronic kidney disease, stage 3 (moderate); Z87.442 Personal history of urinary calculi; Z95.1 Presence of aortocoronary bypass graft; Z79.4 Long term (current) use of insulin; F32.9 Major depressive disorder, single episode, unspecified; R32 Unspecified urinary incontinence; Z87.891 Personal history of nicotine dependence; E78.5 Hyperlipidemia, unspecified; I35.0 Nonrheumatic aortic (valve) stenosis; R00.1 Bradycardia, unspecified; E03.9 Hypothyroidism, unspecified; K59.09 Other constipation; I34.0 Nonrheumatic mitral (valve) insufficiency; I36.1 Nonrheumatic tricuspid (valve) insufficiency; R04.0 Epistaxis; R01.1 Cardiac murmur, unspecified
CPT/HCPCS: 1NP; CCU; 36415; 81003; 82436; 82570; 83010; 86920; 93005; 93010; 96361; 96374; 99291; J0610; J1815; J1940; J3490; J7042; J7060; P9016

== ENCOUNTER 2017-11-13 16:32 | Inpatient (IN) | payer OTHER, MEDICARE ==
[~2017-11-13] VITALS: Ht 177.8 cm; Wt 72.6 kg
[~2017-11-13 16:32] MED LIST changes: +FISH OIL 1,2001 EACH PO; +MUPIROCIN22 GM TOP
--- NOTE | 2017-11-13 17:39 | ED GENERAL ADULT ---
History of Present Illness General Chief Complaint: General Adult Stated Complaint: SIB DR. LUND FOR HIGH POTASSIUM LEVEL Source: patient, old records Exam Limitations: no limitations Vital Signs & Intake/Output Vital Signs & Intake/Output Vital Signs Date Time Temp Pulse Resp B/P B/P Pulse O2 O2 Flow FiO2 Mean Ox Delivery Rate 11/136 97.6 68 16 112/46 91 Room Air 11/13 2204 91 Room Air 11/131 61 19 142/72 91 Room Air 11/13 1710 98.9 64 20 180/60 88 Room Air ED Intake and Output 11/14 0000 11/13 1200 Intake Total 1000 Output Total Balance 1000 Intake, IV 1000 Patient 160 lb Weight Weight Reported by Patient Measurement Method Allergies Coded Allergies: No Known Allergies (11/13/17) Triage Note: TRIAGE: PT SENT TO ER BY DR LUND FOR ELEVATED POTASSIUM. REPORTS IT WAS 7.1. BLOOD WORK WAS ROUTINE. DENIES CHEST PAIN. COMPLAINS ONLY OF CHRONIC R SHOULDER PAIN S/P INJURY IN APRIL. STATES WAS STARTED ON PERCOCET FOR SAME THROUGH PAIN MANAGEMENT EARLIER THIS WEEK. Triage Nurses Notes Reviewed? yes Onset: Abrupt Duration: day(s): (1), continues in ED Timing: single episode today Injury Environment: home Severity: mild, moderate No Modifying Factors: none HPI: 67-year-old male past medical history of coronary artery disease, hypertension, hyperlipidemia, insulin-dependent diabetes, presents for evaluation of elevated potassium. Patient states that he saw his primary care doctor today for routine blood work. He states that after he had his blood drawn his primary care doctor called him telling him that he needs to come the ER for a potassium of 7.1. Patient states that he feels complete fine. He denies any chest pain shortness of breath and weakness dizziness or any other symptoms. He's been eating and drinking normally denies any nausea vomiting or diarrhea. No hemoptysis lower extremity edema. His only complaint is chronic right shoulder pain that is present for several months since a fall. (Yves GALLEGOS,Lj) Reconcile Medications Albuterol Sulfate (Ventolin Hfa) 90 MCG HFA.AER.AD 1-2 PUF INH AD PRN COPD ( Reported) Ascorbate Calcium (Vitamin C) 500 MG TABLET 500 MG PO QAM SUPPLEMENT ( Reported) Aspirin (Ecotrin*) 81 MG TABLET. 1 TAB PO QAM HEART/BLOOD (Reported) Atorvastatin Calcium 80 MG TABLET 1 TAB PO QAM CHOLESTEROL (Reported) Budesonide/Formoterol Fumarate (Symbicort 160-4.5 Mcg Inhaler) 160 MCG-4.5 MCG/ ACTUATION HFA.AER.AD 2 PUF INH BID BREATHING PROBLEMS (Reported) Clopidogrel Bisulfate (Plavix) 75 MG TABLET 1 TAB PO DAILY BLOOD THINNER ( Reported) Cyanocobalamin (Vitamin B-12) 1,000 MCG TABLET 1 TAB PO DAILY SUPPLEMENT ( Reported) Ergocalciferol (Vitamin D2) (Vitamin D2) 50,000 UNIT CAPSULE 1 TAB PO QSUN SUPPLEMENT (Reported) Ezetimibe (Zetia) 10 MG TABLET 10 MG PO DAILY CHOLESTEROL (Reported) Ferrous Sulfate 325 MG (65 MG IRON) TABLET 1 TAB PO TID SUPPLEMENT (Reported) Fish Oil/Dha/Epa (Fish Oil 1,200 MG Fish Oil) 1,200 MG-144 MG-216 MG CAPSULE 1 CAP PO DAILY SUPPLEMENT (Reported) Furosemide (Lasix) 40 MG TABLET 1 TAB PO Thursday CHF . Insulin Aspart (Novolog) 100 UNIT/ML VIAL DM (Reported) Insulin Glargine,Hum.rec.anlog (Lantus Solostar) 100 UNIT/ML (3 ML) INSULN.PEN 6 UNIT SC DAILY DIABETES (Reported) Levothyroxine Sodium (Synthroid) 25 MCG TABLET 0.025 MG PO DAILY AC HYPOTHYROIDISM . Lisinopril 2.5 MG TABLET 1 TAB PO DAILY HEART (Reported) Lorazepam (Ativan) 0.5 MG TABLET 1 TAB PO DAILY ANXIETY (Reported) Oxycodone HCl/Acetaminophen (Oxycodone-Acetaminophen 5-325) 5 MG-325 MG TABLET 1 TAB PO BIDP PRN PAIN (Reported) Pantoprazole Sodium 40 MG TABLET.DR 1 TAB PO BID GI (Reported) Polyethylene Glycol 3350 (Miralax) 17 GRAM POWD.PACK 1 PAC PO DAILY CONSTIPATION (Reported) dissolve in water Sertraline HCl 50 MG TABLET 50 MG PO DAILY DEPRESSION (Reported) (Apolonia BROWN,Willie Murry) Past History Travel History Traveled to [place] past 21 day No Medical History Any Pertinent Medical History? 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 amputation of 9 toes PTCA ESWL by Dr. Ledesma Psychosocial History Who do you live with Spouse Services at Home Nursing What is your primary language Belarusian Tobacco Use: Quit >30 days ago ETOH Use: denies use Illicit Drug Use: denies illicit drug use Family History Family History, If Any: FATHER (CAD). , Age 40-50; Cause: CAD (coronary artery disease). MOTHER (Pancreatic cancer). BROTHER (HTN). Hx Contributory? No (Lj Hayden) Review of Systems Review of Systems Constitutional: Reports: no symptoms. EENTM: Reports: no symptoms. Respiratory: Reports: no symptoms. Cardiovascular: Reports: no symptoms. GI: Reports: no symptoms. Genitourinary: Reports: no symptoms. Musculoskeletal: Reports: joint pain. Skin: Reports: no symptoms. Neurological/Psychological: Reports: no symptoms. Hematologic/Endocrine: Reports: no symptoms. Immunologic/Allergic: Reports: no symptoms. All Other Systems: Reviewed and Negative (Lj Hayden) Physical Exam Physical Exam General Appearance: well developed/nourished, no apparent distress, alert, awake Head: atraumatic, normal appearance Eyes: Bilateral: normal appearance, PERRL, EOMI. Ears, Nose, Throat: normal pharynx, normal ENT inspection, hearing grossly normal Neck: normal inspection, supple, full range of motion Respiratory: normal breath sounds, chest non-tender, no respiratory distress, lungs clear Cardiovascular: regular rate/rhythm, normal peripheral pulses Peripheral Pulses: 2+ radial (R), 2+ radial (L) Gastrointestinal: normal bowel sounds, soft, non-tender, no organomegaly Back: normal inspection, normal range of motion, no vertebral tenderness Extremities: normal inspection, normal range of motion, no edema Neurologic/Psych: no motor/sensory deficits, awake, alert, oriented x 3 Skin: intact, normal color, warm/dry Core Measures ACS in differential dx? Yes CVA/TIA Diagnosis: No Sepsis Present: No Sepsis Focused Exam Completed? No (Yves GALLEGOS,Lj) Progress Differential Diagnoses I considered the following diagnoses in my evaluation of the patient: [ Hyperkalemia, hypo-hyperMAG, acute coronary syndrome, renal insufficiency, medication side effect, dehydration,] Plan of Care: Orders Procedure Date/time Status Consistent Carbohydrate 3 11/14 B Active CBC WITHOUT DIFFERENTIAL 11/14 0400 Active BASIC ELECTROLYTES PLUS BUN&CR 11/14 0400 Active TROPONIN LEVEL 11/14 0300 Active EKG 11/14 0300 Active Pathway - chart 11/13 2353 Active EKG 11/13 2300 Active TROPONIN LEVEL 11/13 215 Complete BLOOD PRODUCT PICKUP 11/13 2151 Active Vital Signs 11/13 2133 Active Teach/Educate 11/13 2133 Active Pain Treatment and Response 11/13 2133 Active Nutritional Intake, Monitor 11/13 2133 Active Isolation 11/13 2133 Active Intake & Output 11/13 2133 Active Patient Care Conference 11/13 2133 Active Activity/Ambulation 11/13 2133 Active GLUCOSE 11/13 2131 Complete BASIC ELECTROLYTES PLUS BUN&CR 11/13 2131 Complete Pathway - chart 11/13 2106 Active House Staff 11/13 2106 Active LEUKOCYTE POOR (PACKED CELLS) 11/13 2100 Active Saline Lock 11/13 2005 Active Misc Message 11/13 2005 Active ED Holding Orders 11/13 2005 Active Admit to inpatient 11/13 2005 Active Patient Data 11/13 2005 Active Vital Signs 11/13 2005 Active Code Status 11/13 2005 Active TYPE & SCREEN (NOT X-MATCH) 11/13 1999 Active LEUKOCYTE POOR (PACKED CELLS) 11/13 1999 Active PARTIAL THROMBOPLASTIN TIME 11/13 192 Complete PROTHROMBIN TIME 11/13 192 Complete Add-on Test (ER Only) 11/13 1917 Active Intake & Output 11/13 1803 Active THYROID STIMULATING HORMONE 11/13 1742 Complete URINALYSIS 11/13 1738 Active Telemetry/Public Events Facilities Rental Manager 11/13 1737 Active TROPONIN LEVEL 11/13 1718 Complete EKG 11/13 1717 Active MAGNESIUM 11/13 1634 Complete COMPREHENSIVE METABOLIC PANEL 11/13 1634 Complete CBC WITHOUT DIFFERENTIAL 11/13 1634 Complete Lab Add-on Test 11/13 UNK Active VTE Mechanical Prophylaxis 11/13 UNK Active FingerStick- Glucose 11/13 UNK Active EKG 11/13 UNK Active Current Medications Sig/Salome Start time Last Medication Dose Stop Time Status Admin Aspirin Buffered 81 MG QAM 11/14 1000 AC (Ecotrin) Atorvastatin Calcium 80 MG QAM 11/14 1000 AC (Lipitor) Clopidogrel Bisulfate 75 MG DAILY 11/14 1000 AC (Plavix) Cyanocobalamin 1,000 MCG DAILY 11/14 1000 AC (Vitamin B12) Ezetimibe 10 MG DAILY 11/14 1000 AC (Zetia) Ferrous Sulfate 325 MG TID 11/14 1000 AC (Feosol) Lorazepam 0.5 MG DAILY 11/14 1000 AC (Ativan) 11/21 0959 Sertraline HCl 50 MG DAILY 11/14 1000 AC (Zoloft) Insulin Aspart 0 TIDAC 11/14 0800 AC (NovoLOG) Levothyroxine Sodium 0.025 MG DAILY AC 11/14 0700 AC (Synthroid) Heparin Sodium 5,000 UNIT Q8 11/14 06 CAN (Porcine) Oxycodone HCl 10 MG Q6-PRN PRN 11/14 0115 AC 11/14 (Roxicodone) 0112 Oxycodone/ 1 TAB Q6 PRN 11/14 0115 AC Acetaminophen (Percocet) Dextrose/Sodium 1,000 ML Q20H 11/14 0100 AC Chloride (D5W-1/2 Normal Saline 1000ML) Dextrose/Sodium 1,000 ML ONCE ONE 11/13 2300 CAN Chloride 11/14 1859 (D5-Normal Saline) Sodium Chloride 500 ML BOLUS ONE 11/13 2145 CAN (Normal Saline 0.9%) 11/14 0424 Laboratory Tests 11/13/17 2300: Troponin I Cancelled 11/13/170: Troponin I 0.32 *H 11/13/172199: Anion Gap 14, Estimated GFR 24 L, BUN/Creatinine Ratio 30.7 H, Glucose 65 11/13/17 2017: PT 16.7 H, INR 1.60 H, APTT 31 11/13/17 174: Troponin I 0.40 *H 11/13/17 174: Anion Gap 17 H, Estimated GFR 23 L, BUN/Creatinine Ratio 30.4 H, Glucose 40 * L, Calcium 8.7, Magnesium 2.1, Total Bilirubin 0.3, AST 21, ALT 36, Alkaline Phosphatase 71, Total Protein 7.9, Albumin 4.0, Globulin 3.9, Albumin/Globulin Ratio 1.0 L, TSH 3.530, CBC w Diff NO MAN DIFF REQ, RBC 2.44 L, MCV 92.3, MCH 30.0, MCHC 32.5 L, RDW 18.0 H, MPV 7.4, Gran % 81.7 H, Lymphocytes % 7.7 L, Monocytes % 9.0, Eosinophils % 1.4, Basophils % 0.2, Absolute Granulocytes 8.0 H, Absolute Lymphocytes 0.8 L, Absolute Monocytes 0.9 H, Absolute Eosinophils 0.1, Absolute Basophils 0 Patient seen and evaluated. He currently feels fine and has no concerns. He denies any chest pain or shortness of breath. He denies any new medications other than Percocet as needed for pain. Patient's repeat potassium here is 6.3. His creatinine is 2.8. He usually runs in the low ones. He has acute on chronic renal insufficiency with likely resulted in his positive troponin of 0.4. Patient denies any chest pain or shortness of breath. Patient will be medicated with aspirin 10 units of IV insulin an amp of D50 and Kayexalate. He' ll also be given a liter normal saline. Patient has history of chronic anemia is currently at 7.3 this is usually where he lives. Due to his positive troponin history of heart disease HE WILL be given a unit of blood. Patient will require admission to the hospital for further evaluation and treatment. Case discussed with Dr. Hodge and Dr. Barksdale they agree. Initial ED EKG: SINUS OR ECTOPIC ATRIAL RHYTHM, VENTRICULAR PREMATURE COMPLEX, FIRST-DEGREE av BLOCK, RIGHT BUNDLE BRANCH BLOCK (Lj Hayden) Departure Departure Disposition: STILL A PATIENT Condition: Stable Clinical Impression Primary Impression: Hyperkalemia Secondary Impressions: GRECIA (acute kidney injury), Elevated troponin Referrals: Ruy Lund MD (PCP/Family) Departure Forms: Customer Survey General Discharge Information Admission Note Spoke With: Mansoor iSlva MD Documentation of Exam: Documentation of any treatments & extenuating circumstances including Concerns Regarding Discharge (functional status, medication knowledge or non-compliance, living conditions, etc.) that warrant an admission rather than observation: [ Cardiology consult, nephrology consult, serial labs, IV insulin, serial EKGs, telemetry monitoring, transfusion,] (Lj Hayden) PA/KEYSEATING MACHINE SET UP OPERATOR Co-Sign Statement Statement: ED Attending supervision documentation- [X] I saw and evaluated the patient. I have also reviewed all the pertinent lab results and diagnostic results. I agree with the findings and the plan of care as documented in the PA's/KEYSEATING MACHINE SET UP OPERATOR's documentation. 11/13/17, 20:00.... PT WITH +troponin, elevated creatinine and potassium, merits tele admission for electrolyte management, cards eval in AM. Team discussed with dr. adhikari. [] I have reviewed the ED Record and agree with the PA's/KEYSEATING MACHINE SET UP OPERATOR's documentation. [] Additions or exceptions (if any) to the PAs/KEYSEATING MACHINE SET UP OPERATOR's note and plan are summarized below: [] (Apolonia BROWN,Willie Murry) Critical Care Note Critical Care Note Critical Care Time: 30-74 min (Lj Hayden)
[2017-11-13 17:52] LABS: ABSOLUTE BASOPHIL COUNT 0 /CUMM (0.0-0.2); ABSOLUTE EOSINOPHIL COUNT 0.1 /CUMM (0.0-0.7); ABSOLUTE LYMPH COUNT 0.8 /CUMM (1.2-3.4); ABSOLUTE MONOCYTE COUNT 0.9 /CUMM (0.10-0.60); BASOPHIL % 0.2 % (0.0-2.0); EOSINOPHIL % 1.4 % (0-5); GRANULOCYTE % 81.7 % (42.2-75.2); HEMATOCRIT 22.5 % (42-52); MEAN CORPUSCULAR HGB CONC 32.5 G/DL (33.0-37.0); MEAN CORPUSCULAR VOLUME 92.3 FL (80.0-94.0); MEAN PLATELET VOLUME 7.4 FL (7.4-10.4); PLATELET COUNT 226 /CUMM (130-400); RED BLOOD CELL CT 2.44 /CUMM (4.70-6.10); WHITE BLOOD CELL COUNT 9.9 /CUMM (4.8-10.8)
--- NOTE | 2017-11-13 20:23 | History & Physical ---
Vonnie Ayoub MD 11/13/172020: General Information and HPI MD Statement: I have seen and personally examined VONNIE BUSTAMANTE and documented this H&P. The patient is a 67 year old M who presented with a patient stated chief complaint of [sent in by PCP for hyperkalemia]. Source of Information: patient, old records Exam Limitations: poor historian History of Present Illness: Patient is a 67-year-old male with a PMH significant for aortic stenosis status post bovine aortic valve replacement, CAD with CA status post CABG and stent placement, HFrEF, CKD, HTN, HLD, IDDM, PVD status post femoropopliteal bypass of the left foot chronic right shoulder pain who was sent in by his PCP for abnormal lab work. Patient had routine lab work done by his PCP Dr. Cheng and was called and told to report to the ER due to elevated potassium level. Patient states that he has been in his usual state of health and asymptomatic. He denies any chest pain, shortness breath, palpitations, nausea, numbness, tingling, weakness, muscle pain lightheadedness, dizziness, loss of consciousness. Review systems is positive only for constipation. Last bowel movement was 1 and a half to 2 days ago. His whom he lives with was sick with the flu approximately 23 weeks ago but he reports no symptoms. Allergies/Medications Allergies: Coded Allergies: No Known Allergies (11/13/17) Past History Travel History Traveled to [place] past 21 day No Medical History Neurological: GAIT ABDNORMALITY WEAKNESS EENT: NONE Cardiovascular: aortic stenosis, CAD, hypertension, hyperlipidemia, NSTEMI, PVD Respiratory: NONE Gastrointestinal: NONE Hepatic: NONE Renal: urinary incontinence, CKD Musculoskeletal: CHRONIC OSTEOMYLITIS LFT FOOT- TOES AMP X5 RGHT FOOT- TOES AMP X4 Psychiatric: depression Endocrine: diabetes Blood Disorders: NONE Cancer(s): NONE TRANSCRIBER/Reproductive: NONE History of MRSA: No History of VRE: No History of CDIFF: No Influenza Vaccine: 08/09/17 Tetanus Vaccine: 04/20/17 Surgical History Surgical History: CABG, hernia repair-umbilical, right shoulddr sx aVR bypass of the left (fem/pop) leg? amputation of 9 toes PTCA ESWL by [address] Ledesma, toe amputations bilaterally Past Family/Social History Family History Relations & Conditions if any FATHER (CAD). , Age 40-50; Cause: CAD (coronary artery disease). MOTHER (Pancreatic cancer). BROTHER (HTN). Psychosocial History Who Do You Live With? spouse Services at Home: Nursing Primary Language: Liberian ETOH Use: denies use Illicit Drug Use: denies illicit drug use Functional Ability ADLs Independent: dressing, eating, toileting, bathing. Ambulation: independent IADLs Independent: shopping, housework, finances, food prep, telephone, transportation , medication admin. Review of Systems Review of Systems Constitutional: Denies: chills, fever, malaise, weakness. Cardiovascular: Denies: chest pain, orthopena, palpitations, peripheral edema, syncope. Respiratory: Denies: cough, hemoptysis, short of breath, sputum production. GI: Reports: constipation. Denies: melena, nausea, bloody stool, vomiting. Genitourinary: Reports: no symptoms. Musculoskeletal: Reports: joint pain (R shoulder, chornic). Skin: Reports: no symptoms. Neurological/Psychological: Denies: numbness, tingling. Exam & Diagnostic Data Last 24 Hrs of Vital Signs/I&O Vital Signs Date Time Temp Pulse Resp B/P B/P Pulse O2 O2 Flow FiO2 Mean Ox Delivery Rate 11/13 2326 97.6 68 16 112/46 91 Room Air 11/13 2204 91 Room Air 11/13 2021 61 19 142/72 91 Room Air 11/13 1710 98.9 64 20 180/60 88 Room Air Intake & Output 11/14 0800 11/14 0000 11/13 1600 Intake Total 1000 Output Total Balance 1000 Intake, IV 1000 Patient 160 lb Weight Weight Reported by Patient Measurement Method Physical Exam General Appearance Alert, Oriented X3, Cooperative, No Acute Distress Skin Temp/Moisture Exam: Warm/Dry HEENT Atraumatic, PERRLA, EOMI, Mucous Membr. moist/pink Neck Supple, No JVD Cardiovascular Regular Rate, Normal S1, Normal S2, systolic murmur 3/6, aortic area Lungs faint crackles at the R lung base Abdomen voluntary guarding on the R side of abdomen, only reports mild TTP Neurological Normal Speech, Strength at 5/5 X4 Ext, Normal Tone, Sensation Intact, Cranial Nerves 3-12 NL Extremities No Clubbing, No Cyanosis, No Edema, s/p multiple toe amputaitons bilataerally Vascular faint distal pulses of the LEs Last 24 Hrs of Labs/Sadi: Laboratory Tests 11/13/17 2300: Troponin I Cancelled 11/13/172199: Troponin I 0.32 *H 11/13/172199: Anion Gap 14, Estimated GFR 24 L, BUN/Creatinine Ratio 30.7 H, Glucose 65 11/13/172016: PT 16.7 H, INR 1.60 H, APTT 31 11/13/171741: Troponin I 0.40 *H 11/13/171741: Anion Gap 17 H, Estimated GFR 23 L, BUN/Creatinine Ratio 30.4 H, Glucose 40 * L, Calcium 8.7, Magnesium 2.1, Total Bilirubin 0.3, AST 21, ALT 36, Alkaline Phosphatase 71, Total Protein 7.9, Albumin 4.0, Globulin 3.9, Albumin/Globulin Ratio 1.0 L, TSH 3.530, CBC w Diff NO MAN DIFF REQ, RBC 2.44 L, MCV 92.3, MCH 30.0, MCHC 32.5 L, RDW 18.0 H, MPV 7.4, Gran % 81.7 H, Lymphocytes % 7.7 L, Monocytes % 9.0, Eosinophils % 1.4, Basophils % 0.2, Absolute Granulocytes 8.0 H, Absolute Lymphocytes 0.8 L, Absolute Monocytes 0.9 H, Absolute Eosinophils 0.1, Absolute Basophils 0 Diagnostic Data EKG Results Old RBBB, PAC, HR 51, QTc 480, no peaked T waves CXR Results Mild bibasilar atelectasis. Possible small right pleural effusion. Cardiomegaly. Assessment/Plan Assessment: Patient is a 67-year-old male with a PMH significant for aortic stenosis status post bovine aortic valve replacement, CAD with CA status post CABG and stent placement, HFrEF, CKD, HTN, HLD, IDDM, PVD status post femoropopliteal bypass of the left foot chronic right shoulder pain who was sent in by his PCP for abnormal lab work. Patient was found to be hyperkalemic, potassium 6.2, and hypoglycemic, glucose 40, but is asymptomatic. Patient is also anemic and has had workup for anemia in the past by GI and was scheduled for a PillCam in the near future, likely denies any melena or bloody stools. There was voluntary guarding on abdominal exam however very mild tenderness to palpation. Troponin was also elevated at 0.4. On the ED the patient received Kayexalate, dextrose, insulin, calcium gluconate. Problem list #Hyperkalemia #Hypoglycemia #Anemia #GRECIA on CKD #likely demand ischema secondary to anemia with elevated troponins in the setting of CKD #History of CAD, HFr EF, HTN, HLD, IDDM Plan -Admit to telemetry -Continuous telemetry monitoring -Serial troponin and EKG, trending troponins until they peak -Closely monitor potassium levels getting more Kayexalate as necessary, use insulin sparingly given hypoglycemia -s/p one unit of PRBC in ED, will trend H/H and transfuse as needed to a goal Hgb of 8 -guaiac all stools -Endocrinology consult for hypoglycemia, patient has history of hyperglycemia requiring admission -Cardiology consult, Dr. Delgado was called from ED, patient normally sees Dr. English -Consider nephrology consult if renal function does not improve with mild IV rehydration -Accu-Cheks 3 times a day before meals at bedtime, NovoLog sliding scale -Continue home medications including aspirin, atorvastatin, clopidogrel, Ezetimibe, ferrous sulfate, Synthroid, lorazepam, sertraline - hold home lasix and lisinopril in setting of GRECIA on CKD -Pain control with oxycodone -Consistent carbohydrate diet -DVT: prophylaxis with ALPS, holding pharmacologic prophylaxis given anemia and possible bleed -Code status: full code As Ranked By This Provider Problem List: 1. Hyperkalemia 2. Hypoglycemia 3. Anemia Core Measures/Misc (06/21) Acute Coronary Syndrome ACS Diagnosis: No Congestive Heart Failure Congestive Heart Failure Diagnosis No Cerebrovascular Accident CVA/TIA Diagnosis: No VTE (View Protocol) VTE Risk Factors Smoker No Mechanical VTE Prophylaxis d/t N/A MechProphylax Ordered No VTE Pharm Prophylaxis d/t Medical Contraindication Sepsis (View protocol) Sepsis Present: No Parvez BROWN,Travis 11/14/17 0250: General Information and HPI Allergies/Medications Home Med list Albuterol Sulfate (Ventolin Hfa) 90 MCG HFA.AER.AD 1-2 PUF INH AD PRN COPD ( Reported) Ascorbate Calcium (Vitamin C) 500 MG TABLET 500 MG PO QAM SUPPLEMENT ( Reported) Aspirin (Ecotrin*) 81 MG TABLET.DR 1 TAB PO QAM HEART/BLOOD (Reported) Atorvastatin Calcium 80 MG TABLET 1 TAB PO QAM CHOLESTEROL (Reported) Budesonide/Formoterol Fumarate (Symbicort 160-4.5 Mcg Inhaler) 160 MCG-4.5 MCG/ ACTUATION HFA.AER.AD 2 PUF INH BID BREATHING PROBLEMS (Reported) Clopidogrel Bisulfate (Plavix) 75 MG TABLET 1 TAB PO DAILY BLOOD THINNER ( Reported) Cyanocobalamin (Vitamin B-12) 1,000 MCG TABLET 1 TAB PO DAILY SUPPLEMENT ( Reported) Ergocalciferol (Vitamin D2) (Vitamin D2) 50,000 UNIT CAPSULE 1 TAB PO QSUN SUPPLEMENT (Reported) Ezetimibe (Zetia) 10 MG TABLET 10 MG PO DAILY CHOLESTEROL (Reported) Ferrous Sulfate 325 MG (65 MG IRON) TABLET 1 TAB PO TID SUPPLEMENT (Reported) Fish Oil/Dha/Epa (Fish Oil 1,200 MG Fish Oil) 1,200 MG-144 MG-216 MG CAPSULE 1 CAP PO DAILY SUPPLEMENT (Reported) Furosemide (Lasix) 40 MG TABLET 1 TAB PO Thursday CHF . Insulin Aspart (Novolog) 100 UNIT/ML VIAL DM (Reported) Insulin Glargine,Hum.rec.anlog (Lantus Solostar) 100 UNIT/ML (3 ML) INSULN.PEN 6 UNIT SC DAILY DIABETES (Reported) Levothyroxine Sodium (Synthroid) 25 MCG TABLET 0.025 MG PO DAILY AC HYPOTHYROIDISM . Lisinopril 2.5 MG TABLET 1 TAB PO DAILY HEART (Reported) Lorazepam (Ativan) 0.5 MG TABLET 1 TAB PO DAILY ANXIETY (Reported) Oxycodone HCl/Acetaminophen (Oxycodone-Acetaminophen 5-325) 5 MG-325 MG TABLET 1 TAB PO BIDP PRN PAIN (Reported) Pantoprazole Sodium 40 MG TABLET.DR 1 TAB PO BID GI (Reported) Polyethylene Glycol 3350 (Miralax) 17 GRAM POWD.PACK 1 PAC PO DAILY CONSTIPATION (Reported) dissolve in water Sertraline HCl 50 MG TABLET 50 MG PO DAILY DEPRESSION (Reported) Resident Review Statement Resident Statement: examined this patient, discussed with risk management intern Other Findings: Assessment 67-year-old gentleman with a significant past medical history for CAD status post CABG and stent placement 2015, aortic stenosis status post bovine AVR, heart failure with reduced ejection fraction, E, hypertension, hyperlipidemia, insulin-dependent diabetes, status post femoropopliteal bypass of left extremity is 17 by his PCP for evaluation of hyperkalemia. Impression Hyperkalemia. Differentials include CKD induced hyperkalemia. Metabolic acidosis has a tendency of causing hyperkalemia. Acute on chronic anemia. Normocytic. Review of [facility] records indicated that I and studies were done before which were not very impressive for iron deficiency anemia. However it is noted the patient is on ferrous sulfate 3 times a day. His normocytic anemia is most likely secondary to kidney disease. Is no sign of acute blood loss and patient is denying any melena, malignancy is always a concern when a 67-year-old patient is presenting with anemia of unknown cause. He does report a normal recent colonoscopy however patient indicated that he was supposed to follow-up with the PillCam. Elevated troponin. In the setting of a hemoglobin and hematocrit and the absence of any chest pain and ischemic EKG changes, presentation is more consistent with demand supply mismatch from the anemia rather than an ACS. His chronic kidney disease is contributory to the elevated troponin due to decrease washout. Plan Admit to telemetry for close cardiac monitoring Status post 10 units of insulin, with a repeat potassium 6.0 which is elevated but trending down. The next potassium as patient has had 3 bowel movements. He denied a repeat Kayexalate or Dulcolax. He however did receive second calcium gluconate. In the setting of worsening renal function Lasix and lisinopril has been held. We'll continue to trend troponin EKG to completely rule out ACS. Her to consult in a.m. Currently receiving 1 unit of PRBC with a hemoglobin goal of 8. Accu-Chek every 2 hours with a very low intense NovoLog sliding scale Will await endocrine recommendation, consult already placed Levemir will be held in the context of repeated episodes of hypoglycemia DVT prophylaxis: Alps, will hold off pharmacological agents in the setting of anemia in a patient with positive troponins and a history of CAD. CODE STATUS: Full code Ricardo BROWN, [facility] 11/14/17 0455: Attending Review Statement Attending Statement Attending MD Statement: examined this patient, discuss w/resident/PA/[employer], agreed w/resident/PA/[employer]ORER, reviewed images, amended to note Attending Assessment/Plan: 67 yo M with h/o CAD s/p CA with strent to LCX, recent bovine AVR with two- vessel CABG (Aug 2017), chronic systolic CHF, T2DM c/b retinopathy, HTN, PVD s/p fem-pop bypass with left foot TMA and right foot amputation of 4 toes, CKD stage 3, iron deficiency anemia, is sent in by PCP for abnormal labs noted on routine bloodwork hyperkalemia and renal failure. He denies any symptoms of chest pain , myalgias, nausea, vomiting, dyspnea or lightheadedness. C/o constipation. Patient was recently admitted to [facility] (Sep 2017) for anemia work up EGD/ colonoscopy negative, he was transfused blood and was asked to follow up with GI for outpatient PillCam study which patient reports is still pending. Vitals stable. Exam: AAO, no distress, MMM, Neck supple, Chest bypass scar area clean/dry, bibasilar crackles+ otherwise lungs clear, Heart S1S2 regular, systolic murmur+, Abd soft, NT, LE: 1+ pedal edema. LE: toe amputations. Labs: H/H 7.3/22.5 (baseline 8-9/25-29), INR 1.60, K 6.3, bicarb 14, AG 17, BUN 85, creat 2.8 (baseline 1.8-2.1), glucose 40, LFTs normal, trop 0.40, TSH normal. CXR: mild bibasilar atelectasis, possible small right pleural effusion, cardiomegaly. Echo (2017): EF 30-40% with anterior and distal septal akinesis, mild to moderate TR, mild pulmonary hypertension. EKG: SR/ectopic atrial rhythm, RBBB, first degree AV block, PVCs, no acute changes. Assessment and plan: 1. Hyperkalemia 2. GRECIA on CKD stage 3 with metabolic acidosis 3. Acute on chronic anemia 4. Elevated troponin likely demand ischemia vs poor renal clearance 5. Hypoglycemia in a patient with T2DM on insulin 6. History of CAD, systolic CHF, AVR, CABG - Admit to Telemetry - Monitor for arrhythmias - Patient received insulin-dextrose, calcium gluconate and kayexalate in the ER, repeat K was 6.0. Will repeat calcium gluconate IV, albuterol, sodium bicarb and kayexalate he needs to have bowel movement. - Trend renal functions and electrolye levels - Hold lisinopril and lasix - Consider Nephrology consult if renal functions fail to improve - Serial EKG and troponin until peak - Continue aspirin and plavix - No need to repeat Echo - Obtain Cardio consult - Gentle hydration with D5-1/2NS as patient is hypoglycemic - Accucheks Q2 - Check HbA1c - Obtain Endo consult - Hold basal insulin - Continue novolog SS for sugars > 200 - Type and crossmatch, transfuse 1 unit PRBC to a goal Hb > 8.0 - Please guaiac stools - Outpatient GI follow up for PillCam study - Pain mx with percocet for chronic shoulder pain DVT ppx Alps (anemia). Full code.
--- NOTE | 2017-11-13 20:33 | RADIOLOGY REPORT ---
EXAMINATION: XR PORTABLE CHEST CLINICAL INFORMATION: Congestive heart failure. COMPARISON: None. TECHNIQUE: Portable frontal view of the chest was obtained. FINDINGS: Heart is enlarged. Status post sternotomy. Monitoring clips project off the chest. Low lung volumes. Mild bibasilar atelectasis. Possible small effusion. No overt pulmonary edema. No pneumothorax. IMPRESSION: Mild bibasilar atelectasis. Possible small right pleural effusion. Cardiomegaly.
[2017-11-13 20:40] LABS: PT 16.7 SEC (9.4-12.5); PTT 31 SEC (25-37)
[2017-11-13] MEDS ORDERED: NOVOLOG100 UNIT/2 SC (21:26)
[2017-11-13] MEDS ORDERED: VENTOLIN HFA18 GM INH (21:30)
[2017-11-13] MEDS ORDERED: OXYCODONE-ACET1 EACH PO (21:30)
[2017-11-13 23:26] VITALS: BP 112/46
--- NOTE | 2017-11-14 00:52 | Admission Certification ---
Admission Certification Certification Statement - As attending physician, I certify that at the time of - admission, based on clinical presentation, severity of - symptoms, need for further diagnostic testing and - therapeutic interventions, and risk of adverse outcomes - without in-hospital treatment, in my clinical assessment, - this patient requires an acute hospital stay for a minimum - of two nights or longer. I have also considered psychsocial - factors such as support system, advanced age, financial - issues, cognitive issues, and failed out-patient treatments, - past re-admission history, safety of patient, and lack of - compliance as applicable. Specific rationale supporting this admission is: Hyperkalemia, GRECIA on CKD, elevated troponin, chronic anemia.
[2017-11-14 05:17] LABS: ABSOLUTE BASOPHIL COUNT 0 /CUMM (0.0-0.2); ABSOLUTE EOSINOPHIL COUNT 0.2 /CUMM (0.0-0.7); ABSOLUTE GRANULOCYTE CT 6.1 /CUMM (1.4-6.5); ABSOLUTE LYMPH COUNT 0.6 /CUMM (1.2-3.4); ABSOLUTE MONOCYTE COUNT 0.9 /CUMM (0.10-0.60); BASOPHIL % 0.3 % (0.0-2.0); EOSINOPHIL % 2.2 % (0-5); GRANULOCYTE % 77.9 % (42.2-75.2); HEMATOCRIT 23.5 % (42-52); MEAN CORPUSCULAR HGB 30.1 PG (27.0-31.0); MEAN CORPUSCULAR HGB CONC 33.4 G/DL (33.0-37.0); MEAN CORPUSCULAR VOLUME 90.2 FL (80.0-94.0); MEAN PLATELET VOLUME 7.9 FL (7.4-10.4); PLATELET COUNT 180 /CUMM (130-400); RBC DISTRIBUTION WIDTH 18.8 % (11.5-14.5); RED BLOOD CELL CT 2.61 /CUMM (4.70-6.10); WHITE BLOOD CELL COUNT 7.8 /CUMM (4.8-10.8)
[2017-11-14 06:58] VITALS: BP 104/48
--- NOTE | 2017-11-14 08:55 | PN-Observation ---
Parvez BROWN,[facility] 11/14/17 0855: Observation Note Observation Note _ I have personally examined VONNIE BUSTAMANTE. him disposition is uncertain at this time. Before a determination can be made, he requires continued observation for the following reasons hyperkalemia. Assessment/Plan Assessment: 67-year-old gentleman with a significant past medical history for CAD status post CABG and stent placement 2016, aortic stenosis status post bovine AVR, heart failure with reduced ejection fraction, E, hypertension, hyperlipidemia, insulin-dependent diabetes, status post femoropopliteal bypass of left extremity is 17 by his PCP for evaluation of hyperkalemia. Impression * Hyperkalemia. Differentials include CKD induced hyperkalemia. Metabolic acidosis has a tendency of causing hyperkalemia. * Acute on chronic anemia. Normocytic. Review of [facility] records indicated that I and studies were done before which were not very impressive for iron deficiency anemia. However it is noted the patient is on ferrous sulfate 3 times a day. His normocytic anemia is most likely secondary to kidney disease. no sign of acute blood loss and patient is denying any melena, malignancy is always a concern when a 67-year-old patient is presenting with anemia of unknown cause. He does report a normal recent colonoscopy however patient indicated that he was supposed to follow-up with the [facility]. * Elevated troponin. In the setting of a hemoglobin and hematocrit and the absence of any chest pain and ischemic EKG changes, presentation is more consistent with demand supply mismatch from the anemia rather than an ACS. His chronic kidney disease is contributory to the elevated troponin due to decrease washout. Plan Continue telemetry for close cardiac monitoring Status post 10 units of insulin, with a repeat potassium 6.3 which is elevated but trending down. 67-year-old gentleman with a significant past medical history for CAD status post CABG and stent placement 2016, aortic stenosis status post bovine AVR, heart failure with reduced ejection fraction, E, hypertension, hyperlipidemia, insulin-dependent diabetes, status post femoropopliteal bypass of left extremity is 17 by his PCP for evaluation of hyperkalemia. Impression * Hyperkalemia. Differentials include CKD induced hyperkalemia. Metabolic acidosis has a tendency of causing hyperkalemia. * Acute on chronic anemia. Normocytic. Review of [facility] records indicated that I and studies were done before which were not very impressive for iron deficiency anemia. However it is noted the patient is on ferrous sulfate 3 times a day. His normocytic anemia is most likely secondary to kidney disease. Is no sign of acute blood loss and patient is denying any melena, malignancy is always a concern when a 67-year-old patient is presenting with anemia of unknown cause. He does report a normal recent colonoscopy however patient indicated that he was supposed to follow-up with the [facility]. * Elevated troponin. In the setting of a low h/h and the absence of any chest pain and ischemic EKG changes, presentation is more consistent with demand supply mismatch from the anemia rather than an ACS. His chronic kidney disease is contributory to the elevated troponin due to decrease washout. Plan Admit to telemetry for close cardiac monitoring Status post 10 units of insulin, with a repeat potassium 6.3 which is elevated but trending down. He denied a repeat Kayexalate or Dulcolax. Will administer bicarb since hypoglycemia is a great risk when Insulin is used in this patient. In the setting of worsening renal function Lasix and lisinopril continues to be held Trops/ekgnegative Cardio consult in a.m. Echo Hgb 7.9 s/p 1 PRBC will guiac all stools Accu-Chek every 2 hours with a very low intense NovoLog sliding scale Will await endocrine recommendation, consult already placed Levemir will be held in the context of repeated episodes of hypoglycemia DVT prophylaxis: Alps, will hold off pharmacological agents in the setting of anemia in a patient with positive troponins and a history of CAD. CODE STATUS: Full code Problem List: 1. Anemia 2. Hyperkalemia Subjective Subjective: Seen and examined at bedside comfortably sleeping. He does not offer any concerns include cp/palpitations. Pt was resistent to additonal doses of kayexelate. Objective Last 24 Hrs of Vital Signs/I&O Vital Signs Date Time Temp Pulse Resp B/P B/P Pulse O2 O2 Flow FiO2 Mean Ox Delivery Rate 11/14 0658 98.0 61 18 104/48 93 11/13 2326 97.6 68 16 112/46 91 Room Air 11/13 2204 91 Room Air 11/13 2021 61 19 142/72 91 Room Air 11/13 1710 98.9 64 20 180/60 88 Room Air Intake & Output 11/14 1600 02/10 0800 11/14 0000 Intake Total 750 1000 Output Total Balance 750 1000 Intake, Blood 350 Product Intake, IV 200 1000 Intake, Oral 200 Number 3 Bowel Movements Patient 72.575 kg Weight Weight Reported by Patient Measurement Method Physical Exam General Appearance: Alert, Oriented X3, Cooperative Other Physical Findings: Skin Temp/Moisture Exam: Warm/Dry HEENT Atraumatic, PERRLA, EOMI, Mucous Membr. moist/pink Neck Supple, No JVD Cardiovascular Regular Rate, Normal S1, Normal S2, systolic murmur 3/6, aortic area Lungs faint crackles at the R lung base Abdomen voluntary guarding on the R side of abdomen, only reports mild TTP Neurological Normal Speech, Strength at 5/5 X4 Ext, Normal Tone, Sensation Intact, Cranial Nerves 3-12 NL Extremities No Clubbing, No Cyanosis, No Edema, s/p multiple toe amputaitons bilataerally Vascular faint distal pulses of the LEs Current Medications: Current Medications Sig/Salome Start time Last Medication Dose Route Stop Time Status Admin Aspirin 0 .STK-MED ONE 11/13 1916 DC PO Aspirin 325 MG ONCE ONE 11/13 1914 DC 11/13 PO 11/13 Aspirin Buffered 81 MG QAM 11/14 1000 AC PO Atorvastatin Calcium 80 MG QAM 11/14 1000 AC PO Bisacodyl 10 MG ONCE ONE 11/13 2345 DC NE 11/13 2346 Calcium Gluconate 1 GM ONCE ONE 11/14 0015 DC 11/14 Sodium Chloride 100 ML IV 11/14 0114 0141 Calcium Gluconate 1 GM ONCE ONE 11/13 2000 DC 11/13 Sodium Chloride 100 ML IV 11/13 Clopidogrel Bisulfate 75 MG DAILY 11/14 1000 AC PO Cyanocobalamin 1,000 MCG DAILY 11/14 1000 AC PO Dextrose 12.5 GM ONCE ONE 11/13 2044 DC 11/13 IV 11/13 Dextrose 25 GM ONCE ONE 11/13 1914 DC 11/13 IV 11/13 Dextrose/Sodium 1,000 ML Q20H 11/14 0100 DC 11/14 Chloride IV 0318 Dextrose/Sodium 1,000 ML ONCE ONE 11/13 2300 CAN Chloride IV 11/14 1859 Dextrose/Water 500 ML .Q10H 11/13 2245 DC IV Ezetimibe 10 MG DAILY 11/14 1000 AC PO Ferrous Sulfate 325 MG TID 11/14 1000 AC PO Heparin Sodium 5,000 UNIT Q8 11/14 06 CAN (Porcine) SC Insulin Aspart 0 TIDAC 11/14 08 AC SC Insulin Human Regular 10 UNITS ONCE ONE 11/13 1929 DC 11/13 IV 11/13 Levothyroxine Sodium 0.025 MG DAILY AC 11/14 0700 AC 11/14 PO 0625 Lorazepam 0.5 MG DAILY 11/14 1000 AC PO 11/21 0959 Oxycodone HCl 10 MG Q6-PRN PRN 11/14 011 AC 11/14 PO 0112 Oxycodone/ 1 TAB Q6 PRN 11/14 011 AC 11/14 Acetaminophen PO 0627 Sertraline HCl 50 MG DAILY 11/14 1000 AC PO Sodium Bicarbonate 50 MEQ Q20H 11/14 0930 AC Dextrose/Water 1,000 ML IV Sodium Bicarbonate 50 MEQ ONCE ONE 11/14 0645 CAN IV 11/14 0646 Sodium Chloride 500 ML BOLUS ONE 11/13 2145 CAN IV 11/14 0424 Sodium Chloride 1,000 ML BOLUS ONE 11/13 1745 DC 11/13 IV 11/13 1844 1802 Sodium Polystyrene 60 ML ONCE ONE 11/14 06 DC 11/14 Sulfonate PO 11/14 06 0623 Sodium Polystyrene 60 ML ONCE ONE 11/14 0015 DC Sulfonate PO 11/14 0016 Sodium Polystyrene 0 .STK-MED ONE 11/13 1938 DC Sulfonate .ROUTE Sodium Polystyrene 120 ML ONCE ONE 11/13 1929 DC 11/13 Sulfonate PO 11/13 1930 194 Last 24 Hrs of Labs/Mics: Laboratory Tests 11/14/1745: Potassium Pending 11/14/17 06: Sodium Cancelled, Potassium Cancelled, Chloride Cancelled, Carbon Dioxide Cancelled, Anion Gap Cancelled, CBC w Diff Cancelled, WBC Cancelled, RBC Cancelled, Hgb Cancelled, Hct Cancelled, MCV Cancelled, MCH Cancelled, MCHC Cancelled, RDW Cancelled, Plt Count Cancelled, MPV Cancelled 11/14/17 0430: Troponin I 0.28 *H 11/14/17 0430: Anion Gap 14, Estimated GFR 25 L, BUN/Creatinine Ratio 31.5 H, Hemoglobin A1c Pending, CBC w Diff NO MAN DIFF REQ, RBC 2.61 L, MCV 90.2, MCH 30.1, MCHC 33.4, RDW 18.8 H, MPV 7.9, Gran % 77.9 H, Lymphocytes % 7.8 L, Monocytes % 11.8 H, Eosinophils % 2.2, Basophils % 0.3, Absolute Granulocytes 6.1, Absolute Lymphocytes 0.6 L, Absolute Monocytes 0.9 H, Absolute Eosinophils 0.2, Absolute Basophils 0 11/13/172299: Troponin I Cancelled 11/13/172199: Troponin I 0.32 *H 11/13/172199: Anion Gap 14, Estimated GFR 24 L, BUN/Creatinine Ratio 30.7 H, Glucose 65 11/13/172016: PT 16.7 H, INR 1.60 H, APTT 31 11/13/171741: Troponin I 0.40 *H 11/13/171741: Anion Gap 17 H, Estimated GFR 23 L, BUN/Creatinine Ratio 30.4 H, Glucose 40 * L, Calcium 8.7, Magnesium 2.1, Total Bilirubin 0.3, AST 21, ALT 36, Alkaline Phosphatase 71, Total Protein 7.9, Albumin 4.0, Globulin 3.9, Albumin/Globulin Ratio 1.0 L, TSH 3.530, CBC w Diff NO MAN DIFF REQ, RBC 2.44 L, MCV 92.3, MCH 30.0, MCHC 32.5 L, RDW 18.0 H, MPV 7.4, Gran % 81.7 H, Lymphocytes % 7.7 L, Monocytes % 9.0, Eosinophils % 1.4, Basophils % 0.2, Absolute Granulocytes 8.0 H, Absolute Lymphocytes 0.8 L, Absolute Monocytes 0.9 H, Absolute Eosinophils 0.1, Absolute Basophils 0 Anoop Husain MD 11/14/172205: Assessment/Plan Assessment: Note- patient is not an observation patient- is full admission. Subjective Review of Systems Constitutional: Reports: malaise, weakness.
--- NOTE | 2017-11-14 14:54 | Cons- Endocrinology ---
General Information and HPI Consulting Request Date of Consult: 11/14/17 Requested By: medical team Reason for Consult: management of uncontrolled diabetes. Source of Information: patient, old records Exam Limitations: poor historian History of Present Illness: 67-year-old male with a PMH significant for aortic stenosis status post bovine aortic valve replacement, CAD with [place] status post CABG and stent placement, HFrEF, CKD, HTN, HLD, diabetes s/p multiple toe amputations, PVD status post femoropopliteal bypass, chronic right shoulder pain who was sent in by his PCP for elevated potassium level. But his glucose level was found to be low. Now he is on Novolog coverage and bicarb drip in D5W at 50 ml/hour. IN addition, he is on Novolog coverage before meals when his glucose level is over 200. His FSGs were 91, 93 and 111. Allergies/Medications Allergies: Coded Allergies: No Known Allergies (11/13/17) Home Med List: Albuterol Sulfate (Ventolin Hfa) 90 MCG HFA.AER.AD 1-2 PUF INH AD PRN COPD ( Reported) Ascorbate Calcium (Vitamin C) 500 MG TABLET 500 MG PO QAM SUPPLEMENT ( Reported) Aspirin (Ecotrin*) 81 MG TABLET.DR 1 TAB PO QAM HEART/BLOOD (Reported) Atorvastatin Calcium 80 MG TABLET 1 TAB PO QAM CHOLESTEROL (Reported) Budesonide/Formoterol Fumarate (Symbicort 160-4.5 Mcg Inhaler) 160 MCG-4.5 MCG/ ACTUATION HFA.AER.AD 2 PUF INH BID BREATHING PROBLEMS (Reported) Clopidogrel Bisulfate (Plavix) 75 MG TABLET 1 TAB PO DAILY BLOOD THINNER ( Reported) Cyanocobalamin (Vitamin B-12) 1,000 MCG TABLET 1 TAB PO DAILY SUPPLEMENT ( Reported) Ergocalciferol (Vitamin D2) (Vitamin D2) 50,000 UNIT CAPSULE 1 TAB PO QSUN SUPPLEMENT (Reported) Ezetimibe (Zetia) 10 MG TABLET 10 MG PO DAILY CHOLESTEROL (Reported) Ferrous Sulfate 325 MG (65 MG IRON) TABLET 1 TAB PO TID SUPPLEMENT (Reported) Fish Oil/Dha/Epa (Fish Oil 1,200 MG Fish Oil) 1,200 MG-144 MG-216 MG CAPSULE 1 CAP PO DAILY SUPPLEMENT (Reported) Furosemide (Lasix) 40 MG TABLET 1 TAB PO Thursday CHF . Insulin Aspart (Novolog) 100 UNIT/ML VIAL DM (Reported) Insulin Glargine,Hum.rec.anlog (Lantus Solostar) 100 UNIT/ML (3 ML) INSULN.PEN 6 UNIT SC DAILY DIABETES (Reported) Levothyroxine Sodium (Synthroid) 25 MCG TABLET 0.025 MG PO DAILY AC HYPOTHYROIDISM . Lisinopril 2.5 MG TABLET 1 TAB PO DAILY HEART (Reported) Lorazepam (Ativan) 0.5 MG TABLET 1 TAB PO DAILY ANXIETY (Reported) Oxycodone HCl/Acetaminophen (Oxycodone-Acetaminophen 5-325) 5 MG-325 MG TABLET 1 TAB PO BIDP PRN PAIN (Reported) Pantoprazole Sodium 40 MG TABLET.DR 1 TAB PO BID GI (Reported) Polyethylene Glycol 3350 (Miralax) 17 GRAM POWD.PACK 1 PAC PO DAILY CONSTIPATION (Reported) dissolve in water Sertraline HCl 50 MG TABLET 50 MG PO DAILY DEPRESSION (Reported) Review of Systems Review of Systems Constitutional: Reports: see HPI. Cardiovascular: Denies: chest pain. Respiratory: Denies: short of breath. GI: Denies: abdominal pain. Musculoskeletal: Denies: joint pain. Hematologic/Endocrine: Denies: polyuria, polydipsia. 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 amputation of 9 toes PTCA ESWL [address] Dr[address] Ledesma toe amputations bilaterally Family History Relations & Conditions If Any: FATHER (CAD). , Age 40-50; Cause: CAD (coronary artery disease). MOTHER (Pancreatic cancer). BROTHER (HTN). Psychosocial History Who Do You Live With? spouse Services at Home: Nursing Primary Language: Korean Smoking Status: Former Smoker ETOH Use: denies use Illicit Drug Use: denies illicit drug use Functional Ability ADLs Independent: dressing, eating, toileting, bathing. Ambulation: independent IADLs Independent: shopping, housework, finances, food prep, telephone, transportation , medication admin. Exam & Diagnostic Data Last 24 Hrs of Vital Signs/I&O Vital Signs Date Time Temp Pulse Resp B/P B/P Pulse O2 O2 Flow FiO2 Mean Ox Delivery Rate 11/14 0558 98.0 61 18 104/48 93 11/13 2326 97.6 68 16 112/46 91 Room Air 11/13 2204 91 Room Air 11/13 2020 61 19 142/72 91 Room Air 11/13 1710 98.9 64 20 180/60 88 Room Air Intake & Output 11/14 1600 11/14 0800 11/14 0000 Intake Total 750 1000 Output Total 400 Balance -438 598 4185 Intake, Blood 350 Product Intake, IV 200 1000 Intake, Oral 200 Number 3 Bowel Movements Output, Urine 400 Patient 160 lb Weight Weight Reported by Patient Measurement Method Physical Exam General Appearance: no apparent distress Neck: normal inspection Respiratory: decreased breath sounds Cardiovascular: regular rate/rhythm Gastrointestinal: non-tender Extremities: no edema Labs/Asdi Results: Laboratory Tests 11/14 11/14 11/14 0945 0600 0430 Chemistry Sodium Cancelled Potassium (3.5 - 5.1 mmol/L) 5.6 H Cancelled Chloride Cancelled Carbon Dioxide Cancelled Anion Gap Cancelled Troponin I (<0.11 ng/ml) 0.28 *H Hematology CBC w Diff Cancelled WBC Cancelled RBC Cancelled Hgb Cancelled Hct Cancelled MCV Cancelled MCH Cancelled MCHC Cancelled RDW Cancelled Plt Count Cancelled MPV Cancelled 11/14 11/13 11/13 0430 2300 2200 Chemistry Sodium (137 - 145 mmol/L) 139 Potassium (3.5 - 5.1 mmol/L) 6.3 *H Chloride (98 - 107 mmol/L) 111 H Carbon Dioxide (22 - 30 mmol/L) 14 L Anion Gap (5 - 16) 14 BUN (9 - 20 mg/dL) 82 H Creatinine (0.7 - 1.2 mg/dL) 2.6 H Estimated GFR (>60 ml/min) 25 L BUN/Creatinine Ratio (7 - 25 %) 31.5 H Hemoglobin A1c (4.2 - 5.8 %) Pending Troponin I (<0.11 ng/ml) Cancelled 0.32 *H Hematology CBC w Diff NO MAN DIFF REQ WBC (4.8 - 10.8 /CUMM) 7.8 RBC (4.70 - 6.10 /CUMM) 2.61 L Hgb (14.0 - 18.0 G/DL) 7.9 L Hct (42 - 52 %) 23.5 L MCV (80.0 - 94.0 FL) 90.2 MCH (27.0 - 31.0 PG) 30.1 MCHC (33.0 - 37.0 G/DL) 33.4 RDW (11.5 - 14.5 %) 18.8 H Plt Count (130 - 400 /CUMM) 180 MPV (7.4 - 10.4 FL) 7.9 Gran % (42.2 - 75.2 %) 77.9 H Lymphocytes % (20.5 - 51.1 %) 7.8 L Monocytes % (1.7 - 9.3 %) 11.8 H Eosinophils % (0 - 5 %) 2.2 Basophils % (0.0 - 2.0 %) 0.3 Absolute Granulocytes (1.4 - 6.5 /CUMM) 6.1 Absolute Lymphocytes (1.2 - 3.4 /CUMM) 0.6 L Absolute Monocytes (0.10 - 0.60 /CUMM) 0.9 H Absolute Eosinophils (0.0 - 0.7 /CUMM) 0.2 Absolute Basophils (0.0 - 0.2 /CUMM) 0 11/13 174 Chemistry Sodium (137 - 145 mmol/L) 137 Potassium (3.5 - 5.1 mmol/L) 6.0 *H Chloride (98 - 107 mmol/L) 108 H Carbon Dioxide (22 - 30 mmol/L) 15 L Anion Gap (5 - 16) 14 BUN (9 - 20 mg/dL) 83 H Creatinine (0.7 - 1.2 mg/dL) 2.7 H Estimated GFR (>60 ml/min) 24 L BUN/Creatinine Ratio (7 - 25 %) 30.7 H Glucose (65 - 99 mg/dL) 65 Troponin I (<0.11 ng/ml) 0.40 *H Coagulation PT (9.4 - 12.5 SEC) 16.7 H INR (0.90 - 1.17) 1.60 H APTT (25 - 37 SEC) 11/13 1742 Chemistry Sodium (137 - 145 mmol/L) 138 Potassium (3.5 - 5.1 mmol/L) 6.3 *H Chloride (98 - 107 mmol/L) 107 Carbon Dioxide (22 - 30 mmol/L) 14 L Anion Gap (5 - 16) 17 H BUN (9 - 20 mg/dL) 85 H Creatinine (0.7 - 1.2 mg/dL) 2.8 H Estimated GFR (>60 ml/min) 23 L BUN/Creatinine Ratio (7 - 25 %) 30.4 H Glucose (65 - 99 mg/dL) 40 *L Calcium (8.4 - 10.2 mg/dL) 8.7 Magnesium (1.6 - 2.3 mg/dL) 2.1 Total Bilirubin (0.2 - 1.3 mg/dL) 0.3 AST (17 - 59 U/L) 21 ALT (21 - 72 U/L) 36 Alkaline Phosphatase (< 127 U/L) 71 Total Protein (6.3 - 8.2 g/dL) 7.9 Albumin (3.5 - 5.0 g/dL) 4.0 Globulin (1.9 - 4.2 gm/dL) 3.9 Albumin/Globulin Ratio (1.1 - 2.2 %) 1.0 L TSH (0.270 - 4.200 uIU/mL) 3.530 Hematology CBC w Diff NO MAN DIFF REQ WBC (4.8 - 10.8 /CUMM) 9.9 RBC (4.70 - 6.10 /CUMM) 2.44 L Hgb (14.0 - 18.0 G/DL) 7.3 *L Hct (42 - 52 %) 22.5 L MCV (80.0 - 94.0 FL) 92.3 MCH (27.0 - 31.0 PG) 30.0 MCHC (33.0 - 37.0 G/DL) 32.5 L RDW (11.5 - 14.5 %) 18.0 H Plt Count (130 - 400 /CUMM) 226 MPV (7.4 - 10.4 FL) 7.4 Gran % (42.2 - 75.2 %) 81.7 H Lymphocytes % (20.5 - 51.1 %) 7.7 L Monocytes % (1.7 - 9.3 %) 9.0 Eosinophils % (0 - 5 %) 1.4 Basophils % (0.0 - 2.0 %) 0.2 Absolute Granulocytes (1.4 - 6.5 /CUMM) 8.0 H Absolute Lymphocytes (1.2 - 3.4 /CUMM) 0.8 L Absolute Monocytes (0.10 - 0.60 /CUMM) 0.9 H Absolute Eosinophils (0.0 - 0.7 /CUMM) 0.1 Absolute Basophils (0.0 - 0.2 /CUMM) 0 Assessment/Plan Assessment/Plan 67-year-old male with a PMH significant for aortic stenosis status post bovine aortic valve replacement, CAD with [place] status post CABG and stent placement, HFrEF, CKD, HTN, HLD, diabetes s/p multiple toe amputations, PVD status post femoropopliteal bypass, chronic right shoulder pain who was sent in by his PCP for elevated potassium level. But his glucose level was found to be low. Now he is on Novolog coverage and bicarb drip in D5W at 50 ml/hour. IN addition, he is on Novolog coverage before meals when his glucose level is over 200. His glucose level has been stable. I will continue the current Novolog coverage before meals for now. will follow. Consult Acknowledgment - Thank you for your consult request.
[2017-11-14 15:16] VITALS: BP 102/58
--- NOTE | 2017-11-14 16:22 | Cons- Cardiology ---
General Information and HPI Consulting Request Date of Consult: 11/14/17 Requested By: Ricardo BROWN,Mansoor Reason for Consult: Hyperkalemia. Source of Information: patient, old records Exam Limitations: poor historian History of Present Illness: Mr. Ede Almanzar is a 67 year old male with a history of history of hypothyroidism, Etoh abuse, previous GI bleeding, hypertension, dyslipidemia, diabetes mellitus, peripheral vascular disease (s/p L SFA stent 05/23/2008; R FA -FAMILY LIVING EDUCATOR bypass 05/30/2008), chronic kidney disease, chronic anemia, aortic stenosis s/p aortic valve replacement (vide infra), conduction disease (first-degree AV block, LAFB, RBBB), and coronary artery disease (s/p VA w/ PCI/JAYCE to mid LCX ; s/p VA s/p CABG & bovine bioprosthetic 21 mm AVR 08/14/2017) who was evaluated in the ED on the recommendation of his primary care physician (Ruy Kendall M.D.) after blood work, performed in anticipation of an upcoming 0V, was reviewed and revealed hyperkalemia. He denies any recent chest discomfort, palpitations, orthopnea, paroxysmal nocturnal dyspnea, dry cough, syncope, near syncope, or claudication, but does admit to intermittent exertional shortness of breath. His last echocardiogram was performed on 09/07/2017 and revealed moderately decreased LV function (EF of 30-40%) with anterior and distal septal akinesis, mildly enlarged and hypokinetic right ventricle, mild right and moderate left atrial enlargement, mild mitral, mild to moderate tricuspid regurgitation, mild pulmonary hypertension, and a pleural effusion. Allergies/Medications Allergies: Coded Allergies: No Known Allergies (11/13/17) Home Med List: Albuterol Sulfate (Ventolin Hfa) 90 MCG HFA.AER.AD 1-2 PUF INH AD PRN COPD ( Reported) Ascorbate Calcium (Vitamin C) 500 MG TABLET 500 MG PO QAM SUPPLEMENT ( Reported) Aspirin (Ecotrin*) 81 MG TABLET.DR 1 TAB PO QAM HEART/BLOOD (Reported) Atorvastatin Calcium 80 MG TABLET 1 TAB PO QAM CHOLESTEROL (Reported) Budesonide/Formoterol Fumarate (Symbicort 160-4.5 Mcg Inhaler) 160 MCG-4.5 MCG/ ACTUATION HFA.AER.AD 2 PUF INH BID BREATHING PROBLEMS (Reported) Clopidogrel Bisulfate (Plavix) 75 MG TABLET 1 TAB PO DAILY BLOOD THINNER ( Reported) Cyanocobalamin (Vitamin B-12) 1,000 MCG TABLET 1 TAB PO DAILY SUPPLEMENT ( Reported) Ergocalciferol (Vitamin D2) (Vitamin D2) 50,000 UNIT CAPSULE 1 TAB PO QSUN SUPPLEMENT (Reported) Ezetimibe (Zetia) 10 MG TABLET 10 MG PO DAILY CHOLESTEROL (Reported) Ferrous Sulfate 325 MG (65 MG IRON) TABLET 1 TAB PO TID SUPPLEMENT (Reported) Fish Oil/Dha/Epa (Fish Oil 1,200 MG Fish Oil) 1,200 MG-144 MG-216 MG CAPSULE 1 CAP PO DAILY SUPPLEMENT (Reported) Furosemide (Lasix) 40 MG TABLET 1 TAB PO Thursday CHF . Insulin Aspart (Novolog) 100 UNIT/ML VIAL DM (Reported) Insulin Glargine,Hum.rec.anlog (Lantus Solostar) 100 UNIT/ML (3 ML) INSULN.PEN 6 UNIT SC DAILY DIABETES (Reported) Levothyroxine Sodium (Synthroid) 25 MCG TABLET 0.025 MG PO DAILY AC HYPOTHYROIDISM . Lisinopril 2.5 MG TABLET 1 TAB PO DAILY HEART (Reported) Lorazepam (Ativan) 0.5 MG TABLET 1 TAB PO DAILY ANXIETY (Reported) Oxycodone HCl/Acetaminophen (Oxycodone-Acetaminophen 5-325) 5 MG-325 MG TABLET 1 TAB PO BIDP PRN PAIN (Reported) Pantoprazole Sodium 40 MG TABLET.DR 1 TAB PO BID GI (Reported) Polyethylene Glycol 3350 (Miralax) 17 GRAM POWD.PACK 1 PAC PO DAILY CONSTIPATION (Reported) dissolve in water Sertraline HCl 50 MG TABLET 50 MG PO DAILY DEPRESSION (Reported) Review of Systems Review of Systems: A 14 point system review was obtained and was noncontributory, other than for the fact that he has chronic pain in his right shoulder. 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 amputation of 9 toes PTCA ESWL by Dr. Ledesma toe amputations bilaterally Family History Relations & Conditions If Any: FATHER (CAD). , Age 40-50; Cause: CAD (coronary artery disease). MOTHER (Pancreatic cancer). BROTHER (HTN). Psychosocial History Who Do You Live With? spouse Services at Home: Nursing Primary Language: Macedonian Smoking Status: Former Smoker ETOH Use: denies use Illicit Drug Use: denies illicit drug use Functional Ability ADLs Independent: dressing, eating, toileting, bathing. Ambulation: independent IADLs Independent: shopping, housework, finances, food prep, telephone, transportation , medication admin. Exam & Diagnostic Data Vital Signs and I&O Vital Signs Date Time Temp Pulse Resp B/P B/P Pulse O2 O2 Flow FiO2 Mean Ox Delivery Rate 11/14 1516 98.2 67 16 102/58 90 Room Air 11/14 0658 98.0 61 18 104/48 93 11/13 2326 97.6 68 16 112/46 91 Room Air 11/13 2204 91 Room Air 11/13 2021 61 19 142/72 91 Room Air 11/13 1710 98.9 64 20 180/60 88 Room Air Intake & Output 11/14 1600 11/14 0800 11/14 0000 11/13 1600 11/13 0800 11/13 0000 Intake Total 750 1000 Output Total 400 Balance -674 976 8439 Intake, Blood 350 Product Intake, IV 200 1000 Intake, Oral 200 Number 3 Bowel Movements Output, Urine 400 Patient 160 lb Weight Weight Reported by Patient Measurement Method Physical Exam: Well-developed, well-nourished elderly male in no acute distress with nasal oxygen in place. Vital signs: See above. HEENT: Normocephalic, atraumatic, EOMI, moist mucous membranes. Neck: No JVD, Lungs: Few bibasilar crackles. Heart: S1, S2 with grade 1-2/6 systolic murmur. No gallop or rub. Abdomen: Soft, nontender, positive bowel sounds. Extremities: Hyperpigmented, no edema. Labs/Sadi Results: Laboratory Tests 11/14 11/14 11/14 0945 0600 0430 Chemistry Sodium Cancelled Potassium (3.5 - 5.1 mmol/L) 5.6 H Cancelled Chloride Cancelled Carbon Dioxide Cancelled Anion Gap Cancelled Troponin I (<0.11 ng/ml) 0.28 *H Hematology CBC w Diff Cancelled WBC Cancelled RBC Cancelled Hgb Cancelled Hct Cancelled MCV Cancelled MCH Cancelled MCHC Cancelled RDW Cancelled Plt Count Cancelled MPV Cancelled 11/14 11/13 11/13 0430 2300 2200 Chemistry Sodium (137 - 145 mmol/L) 139 Potassium (3.5 - 5.1 mmol/L) 6.3 *H Chloride (98 - 107 mmol/L) 111 H Carbon Dioxide (22 - 30 mmol/L) 14 L Anion Gap (5 - 16) 14 BUN (9 - 20 mg/dL) 82 H Creatinine (0.7 - 1.2 mg/dL) 2.6 H Estimated GFR (>60 ml/min) 25 L BUN/Creatinine Ratio (7 - 25 %) 31.5 H Hemoglobin A1c (4.2 - 5.8 %) Pending Troponin I (<0.11 ng/ml) Cancelled 0.32 *H Hematology CBC w Diff NO MAN DIFF REQ WBC (4.8 - 10.8 /CUMM) 7.8 RBC (4.70 - 6.10 /CUMM) 2.61 L Hgb (14.0 - 18.0 G/DL) 7.9 L Hct (42 - 52 %) 23.5 L MCV (80.0 - 94.0 FL) 90.2 MCH (27.0 - 31.0 PG) 30.1 MCHC (33.0 - 37.0 G/DL) 33.4 RDW (11.5 - 14.5 %) 18.8 H Plt Count (130 - 400 /CUMM) 180 MPV (7.4 - 10.4 FL) 7.9 Gran % (42.2 - 75.2 %) 77.9 H Lymphocytes % (20.5 - 51.1 %) 7.8 L Monocytes % (1.7 - 9.3 %) 11.8 H Eosinophils % (0 - 5 %) 2.2 Basophils % (0.0 - 2.0 %) 0.3 Absolute Granulocytes (1.4 - 6.5 /CUMM) 6.1 Absolute Lymphocytes (1.2 - 3.4 /CUMM) 0.6 L Absolute Monocytes (0.10 - 0.60 /CUMM) 0.9 H Absolute Eosinophils (0.0 - 0.7 /CUMM) 0.2 Absolute Basophils (0.0 - 0.2 /CUMM) 0 11/13 174 Chemistry Sodium (137 - 145 mmol/L) 137 Potassium (3.5 - 5.1 mmol/L) 6.0 *H Chloride (98 - 107 mmol/L) 108 H Carbon Dioxide (22 - 30 mmol/L) 15 L Anion Gap (5 - 16) 14 BUN (9 - 20 mg/dL) 83 H Creatinine (0.7 - 1.2 mg/dL) 2.7 H Estimated GFR (>60 ml/min) 24 L BUN/Creatinine Ratio (7 - 25 %) 30.7 H Glucose (65 - 99 mg/dL) 65 Troponin I (<0.11 ng/ml) 0.40 *H Coagulation PT (9.4 - 12.5 SEC) 16.7 H INR (0.90 - 1.17) 1.60 H APTT (25 - 37 SEC) 11/13 174 Chemistry Sodium (137 - 145 mmol/L) 138 Potassium (3.5 - 5.1 mmol/L) 6.3 *H Chloride (98 - 107 mmol/L) 107 Carbon Dioxide (22 - 30 mmol/L) 14 L Anion Gap (5 - 16) 17 H BUN (9 - 20 mg/dL) 85 H Creatinine (0.7 - 1.2 mg/dL) 2.8 H Estimated GFR (>60 ml/min) 23 L BUN/Creatinine Ratio (7 - 25 %) 30.4 H Glucose (65 - 99 mg/dL) 40 *L Calcium (8.4 - 10.2 mg/dL) 8.7 Magnesium (1.6 - 2.3 mg/dL) 2.1 Total Bilirubin (0.2 - 1.3 mg/dL) 0.3 AST (17 - 59 U/L) 21 ALT (21 - 72 U/L) 36 Alkaline Phosphatase (< 127 U/L) 71 Total Protein (6.3 - 8.2 g/dL) 7.9 Albumin (3.5 - 5.0 g/dL) 4.0 Globulin (1.9 - 4.2 gm/dL) 3.9 Albumin/Globulin Ratio (1.1 - 2.2 %) 1.0 L TSH (0.270 - 4.200 uIU/mL) 3.530 Hematology CBC w Diff NO MAN DIFF REQ WBC (4.8 - 10.8 /CUMM) 9.9 RBC (4.70 - 6.10 /CUMM) 2.44 L Hgb (14.0 - 18.0 G/DL) 7.3 *L Hct (42 - 52 %) 22.5 L MCV (80.0 - 94.0 FL) 92.3 MCH (27.0 - 31.0 PG) 30.0 MCHC (33.0 - 37.0 G/DL) 32.5 L RDW (11.5 - 14.5 %) 18.0 H Plt Count (130 - 400 /CUMM) 226 MPV (7.4 - 10.4 FL) 7.4 Gran % (42.2 - 75.2 %) 81.7 H Lymphocytes % (20.5 - 51.1 %) 7.7 L Monocytes % (1.7 - 9.3 %) 9.0 Eosinophils % (0 - 5 %) 1.4 Basophils % (0.0 - 2.0 %) 0.2 Absolute Granulocytes (1.4 - 6.5 /CUMM) 8.0 H Absolute Lymphocytes (1.2 - 3.4 /CUMM) 0.8 L Absolute Monocytes (0.10 - 0.60 /CUMM) 0.9 H Absolute Eosinophils (0.0 - 0.7 /CUMM) 0.1 Absolute Basophils (0.0 - 0.2 /CUMM) 0 Diagnostic Data EKG Results 11/14/2017: Sinus rhythm, first-degree AV block, LAFB, RBBB, probable ASMI of indeterminate age. Assessment/Plan Assessment/Plan [id number] w/ hx of hypothyroidism, Etoh abuse, previous GI bleeding, HTN, HLD, DM, PVD (s/p L SFA stent 05/23/2008; R FA-FAMILY LIVING EDUCATOR bypass 05/30/2008), CKD, chronic anemia, s/p AVR (vide infra), conduction disease (first-degree AV block, LAFB , RBBB), and CAD (s/p VA w/ PCI/JAYCE to mid LCX 02/17/2015; s/p VA s/p CABG & bovine pericardial 21 mm AVR 08/14/2017) who was evaluated in the ED on the recommendation of his PCP after blood work revealed hyperkalemia, marked anemia, positive troponin I, etc. Fortunately, he is asymptomatic and feeling improved with improving potassium, glucose, H/H, etc. He denies any recent chest discomfort, palpitations, orthopnea, paroxysmal nocturnal dyspnea, dry cough, syncope, near syncope, or claudication, but does admit to intermittent exertional shortness of breath. Recommendations: * Telemetry admission, follow-up troponins, follow-up ECG. * Consider repeat echocardiogram to reassess his left ventricular systolic/ diastolic function, aortic bioprosthesis, RV function, PA pressures, etc. * Continue to hold KAYLEIGH inhibitor for the short-term given hyperkalemia. * Hold antiplatelet therapy until sure hemodynamically stable and not actively bleeding. * Check all stools for occult blood and obtain GI consultation if positive. * Aim to maintain hemoglobin at or above 8.0 g/dl. * Consider endocrine consultation to optimize diabetes management. * DVT prophylaxis. Further recommendations will follow, Thank you. Consult Acknowledgment - Thank you for your consult request.
[2017-11-14 22:02] VITALS: BP 116/50
--- NOTE | 2017-11-14 22:06 | PN- Att Addend ---
Attending Addendum Attending Brief Note The patient was seen and discussed with house staff. Agree with current treatment and will follow K and Cr closely. Renal diet. IV bicarbonate. Apreciate cardiology input.
[2017-11-15 06:54] VITALS: BP 128/58
[2017-11-15 07:40] LABS: ABSOLUTE BASOPHIL COUNT 0 /CUMM (0.0-0.2); ABSOLUTE EOSINOPHIL COUNT 0.3 /CUMM (0.0-0.7); ABSOLUTE GRANULOCYTE CT 5.7 /CUMM (1.4-6.5); ABSOLUTE LYMPH COUNT 0.6 /CUMM (1.2-3.4); ABSOLUTE MONOCYTE COUNT 0.8 /CUMM (0.10-0.60); BASOPHIL % 0.5 % (0.0-2.0); EOSINOPHIL % 4.5 % (0-5); HEMATOCRIT 23.6 % (42-52); MEAN CORPUSCULAR HGB 30.3 PG (27.0-31.0); MEAN CORPUSCULAR HGB CONC 33.2 G/DL (33.0-37.0); MEAN CORPUSCULAR VOLUME 91.4 FL (80.0-94.0); MEAN PLATELET VOLUME 7.6 FL (7.4-10.4); PLATELET COUNT 186 /CUMM (130-400); RBC DISTRIBUTION WIDTH 19.1 % (11.5-14.5); RED BLOOD CELL CT 2.59 /CUMM (4.70-6.10); WHITE BLOOD CELL COUNT 7.5 /CUMM (4.8-10.8)
--- NOTE | 2017-11-15 10:05 | PN- Housestaff ---
See Addendum Subjective Follow-up For: Hyperkalemia Acute on chronic anemia Elevated troponins Tele-Events Since Last Visit: Sinus bradycardia, first-degree block, type II block, 51-69 Subjective: Patient visited today, was sitting in bed comfortably in no acute distress, was alert and oriented. Was complaining of right shoulder pain, during active motion, not sensitive to touch, noted to be chronic. No fever or chills, no chest pain, no other events. Second-degree block type 2 was noted, patient was also feeling weak, EKG requested. Patient was planned to give one PRBC. Review of Systems Constitutional: Reports: see HPI. Objective Last 24 Hrs of Vital Signs/I&O Vital Signs Date Time Temp Pulse Resp B/P B/P Pulse O2 O2 Flow FiO2 Mean Ox Delivery Rate 11/15 0654 98.7 63 18 128/58 92 Room Air 11/14 2202 98.3 63 18 116/50 91 Room Air 11/14 1600 Room Air 11/14 1516 98.2 67 16 102/58 90 Room Air Intake & Output 11/15 1600 11/15 0800 11/15 0000 Intake Total 500 775 Output Total 250 375 Balance 250 400 Intake, IV 400 300 Intake, Oral 100 475 Number 0 Bowel Movements Output, Urine 250 375 Physical Exam General Appearance: Alert, Oriented X3, No Acute Distress Skin: No Significant Lesion Skin Temp/Moisture Exam: Warm/Dry Sepsis Skin Exam (color): Normal for Ethnicity HEENT: Atraumatic, EOMI, Mucous Membr. moist/pink Cardiovascular: Regular Rate, Normal S1, Normal S2 Lungs: Clear to Auscultation Abdomen: Soft, No Tenderness Current Medications: Current Medications Sig/Salome Start time Last Medication Dose Route Stop Time Status Admin Aspirin Buffered 81 MG QAM 11/14 1000 AC 11/15 PO 0957 Atorvastatin Calcium 80 MG QAM 11/14 1000 AC 11/15 PO 0957 Clopidogrel Bisulfate 75 MG DAILY 11/14 1000 AC 11/15 PO 0957 Cyanocobalamin 1,000 MCG DAILY 11/14 1000 AC 11/15 PO 0957 Ezetimibe 10 MG DAILY 11/14 1000 AC 11/15 PO 0957 Ferrous Sulfate 325 MG TID 11/14 1000 AC 11/15 PO 0957 Glycerin/Mineral Oil 1 TULIO TID PRN 11/14 1700 AC TOP Insulin Aspart 0 TIDAC 11/14 0800 AC 11/14 SC 1714 Levothyroxine Sodium 0.025 MG DAILY AC 11/14 0700 AC 11/15 PO 0441 Lorazepam 0.5 MG DAILY 11/14 1000 AC 11/15 PO 11/21 0959 0958 Oxycodone HCl 10 MG Q6-PRN PRN 11/14 0115 AC 11/15 PO 1412 Oxycodone/ 1 TAB Q6 PRN 11/14 0115 AC 11/15 Acetaminophen PO 0958 Sertraline HCl 50 MG DAILY 11/14 1000 AC 11/15 PO 0957 Sodium Bicarbonate 50 MEQ Q20H 11/14 0930 AC 11/15 Dextrose/Water 1,000 ML IV 0757 Last 24 Hrs of Lab/Sadi Results Last 24 Hrs of Labs/Mics: Laboratory Tests 11/15/17 0610: Anion Gap 14, Estimated GFR 27 L, BUN/Creatinine Ratio 31.7 H, CBC w Diff NO MAN DIFF REQ, RBC 2.59 L, MCV 91.4, MCH 30.3, MCHC 33.2, RDW 19.1 H, MPV 7.6, Gran % 76.0 H, Lymphocytes % 7.8 L, Monocytes % 11.2 H, Eosinophils % 4.5, Basophils % 0.5, Absolute Granulocytes 5.7, Absolute Lymphocytes 0.6 L, Absolute Monocytes 0.8 H, Absolute Eosinophils 0.3, Absolute Basophils 0 Assessment/Plan Assessment: Note- patient is not an observation patient- is full admission. 67-year-old gentleman with a significant past medical history for CAD status post CABG and stent placement 2015, aortic stenosis status post bovine AVR, heart failure with reduced ejection fraction, E, hypertension, hyperlipidemia, insulin-dependent diabetes, status post femoropopliteal bypass of left extremity is 17 by his PCP for evaluation of hyperkalemia. Impression * Hyperkalemia. Differentials include CKD induced hyperkalemia. Metabolic acidosis has a tendency of causing hyperkalemia. * Acute on chronic anemia. Normocytic. Review of [place] records indicated that I and studies were done before which were not very impressive for iron deficiency anemia. However it is noted the patient is on ferrous sulfate 3 times a day. His normocytic anemia is most likely secondary to kidney disease. Is no sign of acute blood loss and patient is denying any melena, malignancy is always a concern when a 67-year-old patient is presenting with anemia of unknown cause. He does report a normal recent colonoscopy however patient indicated that he was supposed to follow-up with the [facility]. * Elevated troponin. In the setting of a low h/h and the absence of any chest pain and ischemic EKG changes, presentation is more consistent with demand supply mismatch from the anemia rather than an ACS. His chronic kidney disease is contributory to the elevated troponin due to decrease washout. Plan Admit to telemetry for close cardiac monitoring Status post 10 units of insulin, with a repeat potassium 6.3 which is elevated but trending down. He denied a repeat Kayexalate or Dulcolax. Will administer bicarb since hypoglycemia is a great risk when Insulin is used in this patient. In the setting of worsening renal function Lasix and lisinopril continues to be held Trops/ekgnegative Cardio consult in a.m. Echo Hgb 7.9 s/p 1 PRBC will guiac all stools Accu-Chek every 2 hours with a very low intense NovoLog sliding scale Will await endocrine recommendation, consult already placed Levemir will be held in the context of repeated episodes of hypoglycemia -1 unit packed RBC infusion - EKG DVT prophylaxis: Alps, will hold off pharmacological agents in the setting of anemia in a patient with positive troponins and a history of CAD. CODE STATUS: Full code Problem List: 1. CHF exacerbation 2. Symptomatic anemia Pain Ratin Pain Location: Right shoulder, chronic Pain Goal: Pain 4 or less Pain Plan: Percocet Tomorrow's Labs & Rationales: C BC BEP, Hgb 7.9 s/p 1 PRBC will guiac all stools Accu-Chek every 2 hours with a very low intense NovoLog sliding scale Will await endocrine recommendation, consult already placed Levemir will be held in the context of repeated episodes of hypoglycemia DVT prophylaxis: Alps, will hold off pharmacological agents in the setting of anemia in a patient with positive troponins and a history of CAD. CODE STATUS: Full code Problem List: 1. CHF exacerbation 2. Symptomatic anemia Pain Ratin Pain Location: Right shoulder, chronic Pain Goal: Pain 4 or less Pain Plan: Percocet Tomorrow's Labs & Rationales: C BC BEP,
[2017-11-15 14:30] VITALS: BP 98/60
--- NOTE | 2017-11-15 15:03 | PN- Diabetes ---
Assessment/Plan Assessment: 67-year-old male with a PMH significant for aortic stenosis status post bovine aortic valve replacement, CAD with RI status post CABG and stent placement, HFrEF, CKD, HTN, HLD, diabetes s/p multiple toe amputations, PVD status post femoropopliteal bypass, chronic right shoulder pain who was sent in by his PCP for elevated potassium level. But his glucose level was found to be low. Now he is on Novolog coverage and bicarb drip in D5W at 50 ml/hour. IN addition, he is on Novolog coverage before meals when his glucose level is over 200. His FSGs were 118, 127, 109, 117, 143 and 171. He eats meals well. Plan: continue the current treatment; monitor FSGs; monitor electrolytes and renal function. will follow. Subjective Subjective: He feels well this morning. Objective Last 24 Hrs of Vital Signs/I&O Vital Signs Date Time Temp Pulse Resp B/P B/P Pulse O2 O2 Flow FiO2 Mean Ox Delivery Rate 11/15 1430 98.3 60 18 98/60 88 Room Air 11/15 0654 98.7 63 18 128/58 92 Room Air 11/14 2202 98.3 63 18 116/50 91 Room Air 11/14 1600 Room Air 11/14 1516 98.2 67 16 102/58 90 Room Air Intake & Output 11/15 1600 11/15 0800 11/15 0000 Intake Total 800 500 775 Output Total 200 250 375 Balance 600 250 400 Intake, IV 400 400 300 Intake, Oral 400 100 475 Number 0 Bowel Movements Output, Urine 200 250 375 Findings Pertinent Lab/Sadi Results: Laboratory Tests 11/15 0610 Chemistry Sodium (137 - 145 mmol/L) 139 Potassium (3.5 - 5.1 mmol/L) 5.4 H Chloride (98 - 107 mmol/L) 108 H Carbon Dioxide (22 - 30 mmol/L) 17 L Anion Gap (5 - 16) 14 BUN (9 - 20 mg/dL) 76 H Creatinine (0.7 - 1.2 mg/dL) 2.4 H Estimated GFR (>60 ml/min) 27 L BUN/Creatinine Ratio (7 - 25 %) 31.7 H Hematology CBC w Diff NO MAN DIFF REQ WBC (4.8 - 10.8 /CUMM) 7.5 RBC (4.70 - 6.10 /CUMM) 2.59 L Hgb (14.0 - 18.0 G/DL) 7.9 L Hct (42 - 52 %) 23.6 L MCV (80.0 - 94.0 FL) 91.4 MCH (27.0 - 31.0 PG) 30.3 MCHC (33.0 - 37.0 G/DL) 33.2 RDW (11.5 - 14.5 %) 19.1 H Plt Count (130 - 400 /CUMM) 186 MPV (7.4 - 10.4 FL) 7.6 Gran % (42.2 - 75.2 %) 76.0 H Lymphocytes % (20.5 - 51.1 %) 7.8 L Monocytes % (1.7 - 9.3 %) 11.2 H Eosinophils % (0 - 5 %) 4.5 Basophils % (0.0 - 2.0 %) 0.5 Absolute Granulocytes (1.4 - 6.5 /CUMM) 5.7 Absolute Lymphocytes (1.2 - 3.4 /CUMM) 0.6 L Absolute Monocytes (0.10 - 0.60 /CUMM) 0.8 H Absolute Eosinophils (0.0 - 0.7 /CUMM) 0.3 Absolute Basophils (0.0 - 0.2 /CUMM) 0
[2017-11-15 18:58] VITALS: BP 112/62
--- NOTE | 2017-11-15 19:46 | PN- Cardiology ---
Subjective Subjective: Complains of feeling weak today. Denies any chest discomfort, palpitations, change in his chronic shortness of breath. Objective Vital Signs and I&Os Vital Signs Date Time Temp Pulse Resp B/P B/P Pulse O2 O2 Flow FiO2 Mean Ox Delivery Rate 11/15 1858 98.0 61 20 112/62 92 Nasal 1.0L Cannula 11/15 1430 98.3 60 18 98/60 88 Room Air 11/15 0654 98.7 63 18 128/58 92 Room Air 11/14 2202 98.3 63 18 116/50 91 Room Air Intake & Output 11/15 1600 11/15 0800 11/15 0000 11/14 1600 11/14 0800 11/14 0000 Intake Total 800 500 775 992 383 5021 Output Total 200 250 375 550 Balance 600 250 400 098 624 9092 Intake, Blood 350 Product Intake, IV 400 400 300 712 366 8487 Intake, Oral 400 100 475 500 200 Number 0 3 Bowel Movements Output, Urine 200 250 375 550 Patient 160 lb Weight Weight Reported by Patient Measurement Method Physical Exam: Well-developed, well-nourished elderly male in no acute distress with nasal oxygen in place. Vital signs: See above. HEENT: Normocephalic, atraumatic, EOMI, moist mucous membranes. Neck: No JVD, Lungs: Few bibasilar crackles. Heart: S1, S2 with grade 1-2/6 systolic murmur. No gallop or rub. Abdomen: Soft, nontender, positive bowel sounds. Extremities: Hyperpigmented, no edema. Current Medications: Current Medications Sig/Salome Start time Last Medication Dose Route Stop Time Status Admin Aspirin Buffered 81 MG QAM 11/14 1000 AC 11/15 PO 0957 Atorvastatin Calcium 80 MG QAM 11/14 1000 AC 11/15 PO 0957 Clopidogrel Bisulfate 75 MG DAILY 11/14 1000 AC 11/15 PO 0957 Cyanocobalamin 1,000 MCG DAILY 11/14 1000 AC 11/15 PO 0957 Ezetimibe 10 MG DAILY 11/14 1000 AC 11/15 PO 0957 Ferrous Sulfate 325 MG TID 11/14 1000 AC 11/15 PO 1640 Glycerin/Mineral Oil 1 TULIO TID PRN 11/14 1700 AC TOP Insulin Aspart 0 TIDAC 11/14 08 AC 11/14 SC 1714 Levothyroxine Sodium 0.025 MG DAILY AC 11/14 0700 AC 11/15 PO 0441 Lorazepam 0.5 MG DAILY 11/14 1000 AC 11/15 PO 11/21 0959 0958 Oxycodone HCl 10 MG Q6-PRN PRN 11/14 011 AC 11/15 PO 1412 Oxycodone/ 1 TAB Q6 PRN 11/14 011 AC 11/15 Acetaminophen PO 1645 Sertraline HCl 50 MG DAILY 11/14 1000 AC 11/15 PO 0957 Sodium Bicarbonate 50 MEQ Q20H 11/14 929 AC 11/15 Dextrose/Water 1,000 ML IV 0757 Results Last 48 Hrs of Labs/Mics: Laboratory Tests 11/15/17 0610: Anion Gap 14, Estimated GFR 27 L, BUN/Creatinine Ratio 31.7 H, CBC w Diff NO MAN DIFF REQ, RBC 2.59 L, MCV 91.4, MCH 30.3, MCHC 33.2, RDW 19.1 H, MPV 7.6, Gran % 76.0 H, Lymphocytes % 7.8 L, Monocytes % 11.2 H, Eosinophils % 4.5, Basophils % 0.5, Absolute Granulocytes 5.7, Absolute Lymphocytes 0.6 L, Absolute Monocytes 0.8 H, Absolute Eosinophils 0.3, Absolute Basophils 0 11/14/17 0945: 11/14/17 0600: Sodium Cancelled, Potassium Cancelled, Chloride Cancelled, Carbon Dioxide Cancelled, Anion Gap Cancelled, CBC w Diff Cancelled, WBC Cancelled, RBC Cancelled, Hgb Cancelled, Hct Cancelled, MCV Cancelled, MCH Cancelled, MCHC Cancelled, RDW Cancelled, Plt Count Cancelled, MPV Cancelled 11/14/17 0430: Troponin I 0.28 *H 11/14/17 043: Anion Gap 14, Estimated GFR 25 L, BUN/Creatinine Ratio 31.5 H, Hemoglobin A1c Pending, CBC w Diff NO MAN DIFF REQ, RBC 2.61 L, MCV 90.2, MCH 30.1, MCHC 33.4, RDW 18.8 H, MPV 7.9, Gran % 77.9 H, Lymphocytes % 7.8 L, Monocytes % 11.8 H, Eosinophils % 2.2, Basophils % 0.3, Absolute Granulocytes 6.1, Absolute Lymphocytes 0.6 L, Absolute Monocytes 0.9 H, Absolute Eosinophils 0.2, Absolute Basophils 0 11/13/17 2300: Troponin I Cancelled 11/13/172199: Troponin I 0.32 *H 11/13/172199: Anion Gap 14, Estimated GFR 24 L, BUN/Creatinine Ratio 30.7 H, Glucose 65 11/13/172016: PT 16.7 H, INR 1.60 H, APTT 31 Assessment/Plan Assessment/Plan [id number] w/ hx of hypothyroidism, Etoh abuse, previous GI bleeding, HTN, HLD, DM, PVD (s/p L SFA stent 05/23/2008; R [employer] bypass 05/30/2008), CKD, chronic anemia, s/p AVR (vide infra), conduction disease (first-degree AV block, LAFB , RBBB), and CAD (s/p PR w/ PCI/JAYCE to mid LCX 02/17/2015; s/p PR s/p CABG & bovine pericardial 21 mm AVR 08/14/2017) who was evaluated in the ED on the recommendation of his PCP after blood work revealed hyperkalemia, marked anemia, positive troponin I, etc. BUN/creatinine and potassium are improving. Remains anemic and would transfuse to maintain hemoglobin at or above 8.0 g/dl. Continue telemetry? Yes
[2017-11-15 22:03] VITALS: BP 100/60
[2017-11-16 07:09] VITALS: BP 98/68
[2017-11-16 08:01] LABS: ABSOLUTE BASOPHIL COUNT 0 /CUMM (0.0-0.2); ABSOLUTE EOSINOPHIL COUNT 0.3 /CUMM (0.0-0.7); ABSOLUTE LYMPH COUNT 0.5 /CUMM (1.2-3.4); ABSOLUTE MONOCYTE COUNT 0.9 /CUMM (0.10-0.60); BASOPHIL % 0.7 % (0.0-2.0); EOSINOPHIL % 4.8 % (0-5); GRANULOCYTE % 73.7 % (42.2-75.2); HEMATOCRIT 25.3 % (42-52); MEAN CORPUSCULAR HGB 30.8 PG (27.0-31.0); MEAN CORPUSCULAR HGB CONC 33.7 G/DL (33.0-37.0); MEAN CORPUSCULAR VOLUME 91.3 FL (80.0-94.0); MEAN PLATELET VOLUME 7.5 FL (7.4-10.4); PLATELET COUNT 165 /CUMM (130-400); RBC DISTRIBUTION WIDTH 17.9 % (11.5-14.5); RED BLOOD CELL CT 2.77 /CUMM (4.70-6.10); WHITE BLOOD CELL COUNT 6.8 /CUMM (4.8-10.8)
--- NOTE | 2017-11-16 08:07 | PN- Housestaff ---
See Addendum Subjective Follow-up For: Hyperkalemia Acute on chronic anemia Elevated troponins Tele-Events Since Last Visit: SB: 48-65, BBB, PVCs, PACs Subjective: Patient was seen and examined today. Patient denies chest pain, palpitations, muscle pain/weakness, sob, fever, chills, n/v/c/d, hematuria/dysuria. Denies hemoptysis, hematochezia, melena or bright red blood. Denies dizziness or lightheadedness. No acute events overnight. Review of Systems Constitutional: Reports: no symptoms. Cardiovascular: Reports: no symptoms. Respiratory: Reports: no symptoms. Gastrointestinal: Reports: no symptoms. Genitourinary: Reports: no symptoms. Musculoskeletal: Reports: no symptoms. Skin: Reports: no symptoms. Objective Last 24 Hrs of Vital Signs/I&O Vital Signs Date Time Temp Pulse Resp B/P B/P Pulse O2 O2 Flow FiO2 Mean Ox Delivery Rate 11/16 0709 98.1 54 20 98/68 92 Nasal Cannula 11/16 0000 Nasal 1.0L Cannula 11/15 2203 98.5 45 20 100/60 93 11/15 1858 98.0 61 20 112/62 92 Nasal 1.0L Cannula 11/15 1600 Nasal 0.5L Cannula 11/15 1430 98.3 60 18 98/60 88 Room Air Intake & Output 11/16 1600 11/16 0800 11/16 0000 Intake Total 500 975 Output Total 0 300 Balance 500 675 Intake, Blood 350 Product Intake, IV 400 250 Intake, Oral 100 375 Number 0 Bowel Movements Output, Urine 0 300 Physical Exam General Appearance: Alert, Oriented X3, Cooperative, No Acute Distress HEENT: Atraumatic, PERRLA, EOMI, Mucous Membr. moist/pink Cardiovascular: Regular Rate, Normal S1, Normal S2 Lungs: Clear to Auscultation, Normal Air Movement Abdomen: Normal Bowel Sounds, Soft, No Tenderness Neurological: Normal Speech Extremities: No Clubbing, No Cyanosis, No Edema, Normal Pulses, No Tenderness/ Swelling Current Medications: Current Medications Sig/Salome Start time Last Medication Dose Route Stop Time Status Admin Aspirin Buffered 81 MG QAM 11/14 1000 AC 11/15 PO 09 Atorvastatin Calcium 80 MG QAM 11/14 1000 AC 11/15 PO 09 Clopidogrel Bisulfate 75 MG DAILY 11/14 1000 AC 11/15 PO 0957 Cyanocobalamin 1,000 MCG DAILY 11/14 1000 AC 11/15 PO 0957 Ezetimibe 10 MG DAILY 11/14 1000 AC 11/15 PO 0957 Ferrous Sulfate 325 MG TID 11/14 1000 AC 11/15 PO 2054 Glycerin/Mineral Oil 1 TULIO TID PRN 11/14 1700 AC TOP Insulin Aspart 0 TIDAC 11/14 0800 AC 11/14 SC 1714 Levothyroxine Sodium 0.025 MG DAILY AC 11/14 0700 AC 11/16 PO 0526 Lorazepam 0.5 MG DAILY 11/14 1000 AC 11/15 PO 11/21 0959 0958 Oxycodone HCl 10 MG Q6-PRN PRN 11/14 0115 AC 11/15 PO 1412 Oxycodone/ 1 TAB Q6 PRN 11/14 0115 AC 11/16 Acetaminophen PO 0214 Sertraline HCl 50 MG DAILY 11/14 1000 AC 11/15 PO 0957 Sodium Bicarbonate 50 MEQ Q20H 11/14 0930 AC 11/15 Dextrose/Water 1,000 ML IV 0757 Last 24 Hrs of Lab/Sadi Results Last 24 Hrs of Labs/Mics: Laboratory Tests 11/16/17 0626: Anion Gap 11, Estimated GFR 27 L, BUN/Creatinine Ratio 33.3 H, CBC w Diff NO MAN DIFF REQ, RBC 2.77 L, MCV 91.3, MCH 30.8, MCHC 33.7, RDW 17.9 H, MPV 7.5, Gran % 73.7, Lymphocytes % 7.7 L, Monocytes % 13.1 H, Eosinophils % 4.8, Basophils % 0.7, Absolute Granulocytes 5.0, Absolute Lymphocytes 0.5 L, Absolute Monocytes 0.9 H, Absolute Eosinophils 0.3, Absolute Basophils 0 Assessment/Plan Assessment: 67-year-old gentleman with a significant past medical history for CAD status post CABG and stent placement 2015, aortic stenosis status post bovine AVR, heart failure with reduced ejection fraction, E, hypertension, hyperlipidemia, insulin-dependent diabetes, status post femoropopliteal bypass of left extremity is 17 by his PCP for evaluation of hyperkalemia. Patient today remains asymptomatic. Vital signs stable. Patient's sugars remain within normal range: 125 to 189. Patient is status post 2 PRBC on 11/13 and 11/15 with improvement in H&H today of >8&24. Patient's potassium has normalized. However patient's creatinine improving on IV fluids however is still much higher compared to his baseline of 1.6. Patient was seen by nephrology today who recommended renal ultrasound to rule out obstruction. We will continue to monitor renal function. 1. Hyperkalemia - resolved 2. GRECIA on CKD - improving 3. Anemia - improving 4. Demand Ischemia Impression * Hyperkalemia. Differentials include CKD induced hyperkalemia. Metabolic acidosis has a tendency of causing hyperkalemia. * Acute on chronic anemia. Normocytic. Review of [place] records indicated that I and studies were done before which were not very impressive for iron deficiency anemia. However it is noted the patient is on ferrous sulfate 3 times a day. His normocytic anemia is most likely secondary to kidney disease. Is no sign of acute blood loss and patient is denying any melena, malignancy is always a concern when a 67-year-old patient is presenting with anemia of unknown cause. He does report a normal recent colonoscopy however patient indicated that he was supposed to follow-up with the [facility]. * Elevated troponin. In the setting of a low h/h and the absence of any chest pain and ischemic EKG changes, presentation is more consistent with demand supply mismatch from the anemia rather than an ACS. His chronic kidney disease is contributory to the elevated troponin due to decrease washout. Plan Admit to telemetry for close cardiac monitoring Continue Sodium Bicarb D5W @ 50 cc/hr In the setting of GRECIA will continue to hold lasix and lisinopril Renal ultrasound pending Cardiology onboard. Appreciate recommendations. Nephrology onboard. Appreciate recommendations. Echo pending will guiac all stools Accu-Chek TIDAC/qHS a very low intense NovoLog sliding scale DVT prophylaxis: Alps, will hold off pharmacological agents in the setting of anemia in a patient with positive troponins and a history of CAD. CODE STATUS: Full code Problem List: 1. Hyperkalemia Pain Ratin Pain Location: chronic right shoulder pain Pain Goal: Pain 7 or less Pain Plan: percocet Tomorrow's Labs & Rationales: cbc - anemia bep - trending creatinine Pain Goal: Pain 7 or less Pain Plan: percocet
--- NOTE | 2017-11-16 11:27 | PN- Diabetes ---
Assessment/Plan Assessment: 67-year-old male with a PMH significant for aortic stenosis status post bovine aortic valve replacement, CAD with NC status post CABG and stent placement, HFrEF, CKD, HTN, HLD, diabetes s/p multiple toe amputations, PVD status post femoropopliteal bypass, chronic right shoulder pain who was sent in by his PCP for elevated potassium level. But his glucose level was found to be low. Now he is on Novolog coverage and bicarb drip in D5W at 50 ml/hour. IN addition, he is on Novolog coverage before meals when his glucose level is over 200. His FSGs were 189, 169, 125 and 139. He eats meals well. Plan: continue the current insulin orders; monitor FSGs. will follow. Subjective Subjective: He feels much better. Objective Last 24 Hrs of Vital Signs/I&O Vital Signs Date Time Temp Pulse Resp B/P B/P Pulse O2 O2 Flow FiO2 Mean Ox Delivery Rate 11/16 0709 98.1 54 20 98/68 92 Nasal Cannula 11/16 0000 Nasal 1.0L Cannula 11/15 2203 98.5 45 20 100/60 93 11/15 1858 98.0 61 20 112/62 92 Nasal 1.0L Cannula 11/15 1600 Nasal 0.5L Cannula 11/15 1430 98.3 60 18 98/60 88 Room Air Intake & Output 11/16 1600 11/16 0800 11/16 0000 Intake Total 500 975 Output Total 0 300 Balance 500 675 Intake, Blood 350 Product Intake, IV 400 250 Intake, Oral 100 375 Number 0 Bowel Movements Output, Urine 0 300 Findings Pertinent Lab/Sadi Results: Laboratory Tests 11/16 0626 Chemistry Sodium (137 - 145 mmol/L) 138 Potassium (3.5 - 5.1 mmol/L) 5.1 Chloride (98 - 107 mmol/L) 107 Carbon Dioxide (22 - 30 mmol/L) 21 L Anion Gap (5 - 16) 11 BUN (9 - 20 mg/dL) 80 H Creatinine (0.7 - 1.2 mg/dL) 2.4 H Estimated GFR (>60 ml/min) 27 L BUN/Creatinine Ratio (7 - 25 %) 33.3 H Hematology CBC w Diff NO MAN DIFF REQ WBC (4.8 - 10.8 /CUMM) 6.8 RBC (4.70 - 6.10 /CUMM) 2.77 L Hgb (14.0 - 18.0 G/DL) 8.5 L Hct (42 - 52 %) 25.3 L MCV (80.0 - 94.0 FL) 91.3 MCH (27.0 - 31.0 PG) 30.8 MCHC (33.0 - 37.0 G/DL) 33.7 RDW (11.5 - 14.5 %) 17.9 H Plt Count (130 - 400 /CUMM) 165 MPV (7.4 - 10.4 FL) 7.5 Gran % (42.2 - 75.2 %) 73.7 Lymphocytes % (20.5 - 51.1 %) 7.7 L Monocytes % (1.7 - 9.3 %) 13.1 H Eosinophils % (0 - 5 %) 4.8 Basophils % (0.0 - 2.0 %) 0.7 Absolute Granulocytes (1.4 - 6.5 /CUMM) 5.0 Absolute Lymphocytes (1.2 - 3.4 /CUMM) 0.5 L Absolute Monocytes (0.10 - 0.60 /CUMM) 0.9 H Absolute Eosinophils (0.0 - 0.7 /CUMM) 0.3 Absolute Basophils (0.0 - 0.2 /CUMM) 0
--- NOTE | 2017-11-16 11:34 | Cons- Nephrology ---
General Information and HPI Consulting Request Date of Consult: 11/16/17 Requested By: Anoop Husain MD Reason for Consult: GRECIA, CKD, Hyperkalemia Source of Information: patient, old records Exam Limitations: no limitations History of Present Illness: 66 yr old WM w mult med problems including DM, HTN, PVDx, CAD s/p CABG, valvular heart dx s/p AVR w TR, R & L CHF/low EF, & CKD w associated nonnephrotic range proteinuria & mult episodes GRECIA. Admit 11/13/17 after outpt labs found worsening renal function: rise Cr from baseline mid 1s --> 2.8 complicated by hyperkalemia 6.3, presumed met acidosis, & worsening anemia. Outpt labs meds included ACEI & Lasix which have been stopped but has had ongoing systolic hypotension to 90s in hospital. Treated w Kayexalate, IV Na bicarb, & transfused 2 units prbc w improved electrolytes & renal function. No documeneted recent IV contrast & denies NSAIDs. Has hx renal stones but no recent renal colic or gross hematuria. No vomiting but had diarrhea at home prior to admit. Has chronic leg edema now improved; denies SOB or orthopnea. No hx melena, hematemmesis, or hematochezia. Allergies/Medications Allergies: Coded Allergies: No Known Allergies (11/13/17) Home Med List: Albuterol Sulfate (Ventolin Hfa) 90 MCG HFA.AER.AD 1-2 PUF INH AD PRN COPD ( Reported) Ascorbate Calcium (Vitamin C) 500 MG TABLET 500 MG PO QAM SUPPLEMENT ( Reported) Aspirin (Ecotrin*) 81 MG TABLET.DR 1 TAB PO QAM HEART/BLOOD (Reported) Atorvastatin Calcium 80 MG TABLET 1 TAB PO QAM CHOLESTEROL (Reported) Budesonide/Formoterol Fumarate (Symbicort 160-4.5 Mcg Inhaler) 160 MCG-4.5 MCG/ ACTUATION HFA.AER.AD 2 PUF INH BID BREATHING PROBLEMS (Reported) Clopidogrel Bisulfate (Plavix) 75 MG TABLET 1 TAB PO DAILY BLOOD THINNER ( Reported) Cyanocobalamin (Vitamin B-12) 1,000 MCG TABLET 1 TAB PO DAILY SUPPLEMENT ( Reported) Ergocalciferol (Vitamin D2) (Vitamin D2) 50,000 UNIT CAPSULE 1 TAB PO QSUN SUPPLEMENT (Reported) Ezetimibe (Zetia) 10 MG TABLET 10 MG PO DAILY CHOLESTEROL (Reported) Ferrous Sulfate 325 MG (65 MG IRON) TABLET 1 TAB PO TID SUPPLEMENT (Reported) Fish Oil/Dha/Epa (Fish Oil 1,200 MG Fish Oil) 1,200 MG-144 MG-216 MG CAPSULE 1 CAP PO DAILY SUPPLEMENT (Reported) Furosemide (Lasix) 40 MG TABLET 1 TAB PO Thursday CHF . Insulin Aspart (Novolog) 100 UNIT/ML VIAL DM (Reported) Insulin Glargine,Hum.rec.anlog (Lantus Solostar) 100 UNIT/ML (3 ML) INSULN.PEN 6 UNIT SC DAILY DIABETES (Reported) Levothyroxine Sodium (Synthroid) 25 MCG TABLET 0.025 MG PO DAILY AC HYPOTHYROIDISM . Lisinopril 2.5 MG TABLET 1 TAB PO DAILY HEART (Reported) Lorazepam (Ativan) 0.5 MG TABLET 1 TAB PO DAILY ANXIETY (Reported) Oxycodone HCl/Acetaminophen (Oxycodone-Acetaminophen 5-325) 5 MG-325 MG TABLET 1 TAB PO BIDP PRN PAIN (Reported) Pantoprazole Sodium 40 MG TABLET.DR 1 TAB PO BID GI (Reported) Polyethylene Glycol 3350 (Miralax) 17 GRAM POWD.PACK 1 PAC PO DAILY CONSTIPATION (Reported) dissolve in water Sertraline HCl 50 MG TABLET 50 MG PO DAILY DEPRESSION (Reported) Current Medications: Current Medications Sig/Salome Start time Last Medication Dose Route Stop Time Status Admin Aspirin Buffered 81 MG QAM 11/14 1000 AC 11/16 PO 09 Atorvastatin Calcium 80 MG QAM 11/14 1000 AC 11/16 PO 0903 Clopidogrel Bisulfate 75 MG DAILY 11/14 1000 AC 11/16 PO 0902 Cyanocobalamin 1,000 MCG DAILY 11/14 1000 AC 11/16 PO 0902 Ezetimibe 10 MG DAILY 11/14 1000 AC 11/16 PO 0902 Ferrous Sulfate 325 MG TID 11/14 1000 AC 11/16 PO 0902 Glycerin/Mineral Oil 1 TULIO TID PRN 11/14 1700 AC TOP Insulin Aspart 0 TIDAC 11/14 0800 AC 11/14 SC 1714 Levothyroxine Sodium 0.025 MG DAILY AC 11/14 0700 AC 11/16 PO 0526 Lorazepam 0.5 MG DAILY 11/14 1000 AC 11/16 PO 11/21 0959 0901 Oxycodone HCl 10 MG Q6-PRN PRN 11/14 0115 AC 11/15 PO 1412 Oxycodone/ 1 TAB Q6 PRN 11/14 0115 AC 11/16 Acetaminophen PO 09 Sertraline HCl 50 MG DAILY 11/14 1000 AC 11/16 PO 0902 Sodium Bicarbonate 50 MEQ Q20H 11/14 0930 AC 11/16 Dextrose/Water 1,000 ML IV 0903 Review of Systems Review of Systems Constitutional: Reports: no symptoms. EENTM: Reports: no symptoms. Cardiovascular: Reports: edema. Respiratory: Reports: no symptoms. GI: Reports: diarrhea. Genitourinary: Reports: no symptoms. Skin: Reports: no symptoms. Neurological/Psychological: Reports: no symptoms. Hematologic/Endocrine: Reports: no symptoms. Immunologic/Allergic: Reports: no symptoms. All Other Systems: Reviewed and Negative Past History Travel History Traveled to [place] past 21 day No Medical History Blood Transfusion Hx: Yes Neurological: GAIT ABDNORMALITY WEAKNESS EENT: NONE Cardiovascular: aortic stenosis, CAD, hypertension, hyperlipidemia, NSTEMI, PVD Respiratory: NONE Gastrointestinal: NONE Hepatic: NONE Renal: urinary incontinence, CKD Musculoskeletal: CHRONIC OSTEOMYLITIS LFT FOOT- TOES AMP X5 RGHT FOOT- TOES AMP X4 Psychiatric: depression Endocrine: diabetes Blood Disorders: NONE Cancer(s): NONE STUDIO MANAGER/Reproductive: NONE Surgical History Surgical History: CABG, hernia repair-umbilical, right shoulddr sx aVR bypass of the left (fem/pop) leg? amputation of 9 toes PTCA ESWL by Dr[address] Ledesma toe amputations bilaterally Family History Relations & Conditions If Any: FATHER (CAD). , Age 40-50; Cause: CAD (coronary artery disease). MOTHER (Pancreatic cancer). BROTHER (HTN). Psychosocial History Who Do You Live With? spouse Services at Home: Nursing Primary Language: Citizen Of [place] Smoking Status: Former Smoker ETOH Use: denies use Illicit Drug Use: denies illicit drug use Functional Ability ADLs Independent: dressing, eating, toileting, bathing. Ambulation: independent IADLs Independent: shopping, housework, finances, food prep, telephone, transportation , medication admin. Exam & Diagnostic Data Vital Signs and I&O Vital Signs Date Time Temp Pulse Resp B/P B/P Pulse O2 O2 Flow FiO2 Mean Ox Delivery Rate 11/16 0709 98.1 54 20 98/68 92 Nasal Cannula 11/16 0000 Nasal 1.0L Cannula 11/15 2203 98.5 45 20 100/60 93 11/15 1858 98.0 61 20 112/62 92 Nasal 1.0L Cannula 11/15 1600 Nasal 0.5L Cannula 11/15 1430 98.3 60 18 98/60 88 Room Air Intake & Output 11/16 1600 11/16 0400 11/15 1600 11/15 0400 11/14 1600 11/14 0400 Intake Total 695 290 8043 775 1600 1000 Output Total 0 300 450 375 550 Balance 500 675 249 243 6164 1000 Intake, Blood 350 350 Product Intake, IV 400 250 800 054 122 4176 Intake, Oral 100 375 500 475 700 Number 0 0 3 Bowel Movements Output, Urine 0 300 450 375 550 Patient 160 lb Weight Weight Reported by Patient Measurement Method Physical Exam General Appearance: well developed/nourished, no apparent distress, alert, awake Head: atraumatic, normal appearance Eyes: Bilateral: normal appearance. 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 tutor II-XII nml as tested Skin: intact, normal color, warm/dry Lymphatic: no anterior cervical clarissa, no axillary adenopathy Results Pertinent Lab Results: Laboratory Tests 11/16 11/15 0626 0610 Chemistry Sodium (137 - 145 mmol/L) 138 139 Potassium (3.5 - 5.1 mmol/L) 5.1 5.4 H Chloride (98 - 107 mmol/L) 107 108 H Carbon Dioxide (22 - 30 mmol/L) 21 L 17 L Anion Gap (5 - 16) 11 14 BUN (9 - 20 mg/dL) 80 H 76 H Creatinine (0.7 - 1.2 mg/dL) 2.4 H 2.4 H Estimated GFR (>60 ml/min) 27 L 27 L BUN/Creatinine Ratio (7 - 25 %) 33.3 H 31.7 H Hematology CBC w Diff NO MAN DIFF REQ NO MAN DIFF REQ WBC (4.8 - 10.8 /CUMM) 6.8 7.5 RBC (4.70 - 6.10 /CUMM) 2.77 L 2.59 L Hgb (14.0 - 18.0 G/DL) 8.5 L 7.9 L Hct (42 - 52 %) 25.3 L 23.6 L MCV (80.0 - 94.0 FL) 91.3 91.4 MCH (27.0 - 31.0 PG) 30.8 30.3 MCHC (33.0 - 37.0 G/DL) 33.7 33.2 RDW (11.5 - 14.5 %) 17.9 H 19.1 H Plt Count (130 - 400 /CUMM) 165 186 MPV (7.4 - 10.4 FL) 7.5 7.6 Gran % (42.2 - 75.2 %) 73.7 76.0 H Lymphocytes % (20.5 - 51.1 %) 7.7 L 7.8 L Monocytes % (1.7 - 9.3 %) 13.1 H 11.2 H Eosinophils % (0 - 5 %) 4.8 4.5 Basophils % (0.0 - 2.0 %) 0.7 0.5 Absolute Granulocytes (1.4 - 6.5 /CUMM) 5.0 5.7 Absolute Lymphocytes (1.2 - 3.4 /CUMM) 0.5 L 0.6 L Absolute Monocytes (0.10 - 0.60 /CUMM) 0.9 H 0.8 H Absolute Eosinophils (0.0 - 0.7 /CUMM) 0.3 0.3 Absolute Basophils (0.0 - 0.2 /CUMM) 0 0 11/14 11/14 11/14 0945 0600 0430 Chemistry Sodium Cancelled Potassium (3.5 - 5.1 mmol/L) 5.6 H Cancelled Chloride Cancelled Carbon Dioxide Cancelled Anion Gap Cancelled Troponin I (<0.11 ng/ml) 0.28 *H Hematology CBC w Diff Cancelled WBC Cancelled RBC Cancelled Hgb Cancelled Hct Cancelled MCV Cancelled MCH Cancelled MCHC Cancelled RDW Cancelled Plt Count Cancelled MPV Cancelled 11/14 11/13 11/13 0430 2300 2200 Chemistry Sodium (137 - 145 mmol/L) 139 Potassium (3.5 - 5.1 mmol/L) 6.3 *H Chloride (98 - 107 mmol/L) 111 H Carbon Dioxide (22 - 30 mmol/L) 14 L Anion Gap (5 - 16) 14 BUN (9 - 20 mg/dL) 82 H Creatinine (0.7 - 1.2 mg/dL) 2.6 H Estimated GFR (>60 ml/min) 25 L BUN/Creatinine Ratio (7 - 25 %) 31.5 H Hemoglobin A1c (4.2 - 5.8 %) 6.4 H Troponin I (<0.11 ng/ml) Cancelled 0.32 *H Hematology CBC w Diff NO MAN DIFF REQ WBC (4.8 - 10.8 /CUMM) 7.8 RBC (4.70 - 6.10 /CUMM) 2.61 L Hgb (14.0 - 18.0 G/DL) 7.9 L Hct (42 - 52 %) 23.5 L MCV (80.0 - 94.0 FL) 90.2 MCH (27.0 - 31.0 PG) 30.1 MCHC (33.0 - 37.0 G/DL) 33.4 RDW (11.5 - 14.5 %) 18.8 H Plt Count (130 - 400 /CUMM) 180 MPV (7.4 - 10.4 FL) 7.9 Gran % (42.2 - 75.2 %) 77.9 H Lymphocytes % (20.5 - 51.1 %) 7.8 L Monocytes % (1.7 - 9.3 %) 11.8 H Eosinophils % (0 - 5 %) 2.2 Basophils % (0.0 - 2.0 %) 0.3 Absolute Granulocytes (1.4 - 6.5 /CUMM) 6.1 Absolute Lymphocytes (1.2 - 3.4 /CUMM) 0.6 L Absolute Monocytes (0.10 - 0.60 /CUMM) 0.9 H Absolute Eosinophils (0.0 - 0.7 /CUMM) 0.2 Absolute Basophils (0.0 - 0.2 /CUMM) 0 11/13 Chemistry Sodium (137 - 145 mmol/L) 137 Potassium (3.5 - 5.1 mmol/L) 6.0 *H Chloride (98 - 107 mmol/L) 108 H Carbon Dioxide (22 - 30 mmol/L) 15 L Anion Gap (5 - 16) 14 BUN (9 - 20 mg/dL) 83 H Creatinine (0.7 - 1.2 mg/dL) 2.7 H Estimated GFR (>60 ml/min) 24 L BUN/Creatinine Ratio (7 - 25 %) 30.7 H Glucose (65 - 99 mg/dL) 65 Troponin I (<0.11 ng/ml) 0.40 *H Coagulation PT (9.4 - 12.5 SEC) 16.7 H INR (0.90 - 1.17) 1.60 H APTT (25 - 37 SEC) 11/13 1742 1738 Chemistry Sodium (137 - 145 mmol/L) 138 Potassium (3.5 - 5.1 mmol/L) 6.3 *H Chloride (98 - 107 mmol/L) 107 Carbon Dioxide (22 - 30 mmol/L) 14 L Anion Gap (5 - 16) 17 H BUN (9 - 20 mg/dL) 85 H Creatinine (0.7 - 1.2 mg/dL) 2.8 H Estimated GFR (>60 ml/min) 23 L BUN/Creatinine Ratio (7 - 25 %) 30.4 H Glucose (65 - 99 mg/dL) 40 *L Calcium (8.4 - 10.2 mg/dL) 8.7 Magnesium (1.6 - 2.3 mg/dL) 2.1 Total Bilirubin (0.2 - 1.3 mg/dL) 0.3 AST (17 - 59 U/L) 21 ALT (21 - 72 U/L) 36 Alkaline Phosphatase (< 127 U/L) 71 Total Protein (6.3 - 8.2 g/dL) 7.9 Albumin (3.5 - 5.0 g/dL) 4.0 Globulin (1.9 - 4.2 gm/dL) 3.9 Albumin/Globulin Ratio (1.1 - 2.2 %) 1.0 L TSH (0.270 - 4.200 uIU/mL) 3.530 Hematology CBC w Diff NO MAN DIFF REQ WBC (4.8 - 10.8 /CUMM) 9.9 RBC (4.70 - 6.10 /CUMM) 2.44 L Hgb (14.0 - 18.0 G/DL) 7.3 *L Hct (42 - 52 %) 22.5 L MCV (80.0 - 94.0 FL) 92.3 MCH (27.0 - 31.0 PG) 30.0 MCHC (33.0 - 37.0 G/DL) 32.5 L RDW (11.5 - 14.5 %) 18.0 H Plt Count (130 - 400 /CUMM) 226 MPV (7.4 - 10.4 FL) 7.4 Gran % (42.2 - 75.2 %) 81.7 H Lymphocytes % (20.5 - 51.1 %) 7.7 L Monocytes % (1.7 - 9.3 %) 9.0 Eosinophils % (0 - 5 %) 1.4 Basophils % (0.0 - 2.0 %) 0.2 Absolute Granulocytes (1.4 - 6.5 /CUMM) 8.0 H Absolute Lymphocytes (1.2 - 3.4 /CUMM) 0.8 L Absolute Monocytes (0.10 - 0.60 /CUMM) 0.9 H Absolute Eosinophils (0.0 - 0.7 /CUMM) 0.1 Absolute Basophils (0.0 - 0.2 /CUMM) 0 Urines Urine Color Cancelled Urine Clarity Cancelled Urine pH Cancelled Ur Specific [place] Cancelled Urine Protein Cancelled Urine Ketones Cancelled Urine Nitrite Cancelled Urine Bilirubin Cancelled Urine Urobilinogen Cancelled Ur Leukocyte Esterase Cancelled Ur Microscopic Cancelled Urine Hemoglobin Cancelled Urine Glucose Cancelled Imaging/Other Studies: SERVICE DATE: 11/13/17 EXAM TYPE: RAD - XRY-PORTABLE CHEST XRAY EXAMINATION: XR PORTABLE CHEST CLINICAL INFORMATION: Congestive heart failure. COMPARISON: None. TECHNIQUE: Portable frontal view of the chest was obtained. FINDINGS: Heart is enlarged. Status post sternotomy. Monitoring clips project off the chest. Low lung volumes. Mild bibasilar atelectasis. Possible small effusion. No overt pulmonary edema. No pneumothorax. IMPRESSION: Mild bibasilar atelectasis. Possible small right pleural effusion. Cardiomegaly. Assessment/Plan Assessment/Recommendations Assessment: 1. GRECIA: likley prerenal due to RAAS interruption & diuretics in face of low CO/ hypotension/cardiorenal syndrome & possible volume contraction; needs obstruction excluded. Hi BUN/Cr ratio could also reflect GI blood & GI bleed needs to be excluded. No renal replacement indication. Could consider inotropic support if does not continue to improve. 2. CKD: mod, stage 3, likley due to combination of background HTN & diabetic nephrosclerosis w superimposed cardiorenal. 3. Hyperkalemia: due to RAAS interruption & GRECIA; improved 4. Met Acid: presumed w/o ABG based on lytes; likely due to hyperkalemia, GRECIA, & GI loss; improving Recommendations: 1. Continue IV fluids 2. No RAAS interruption 3. No diuretics for now 4. Renal US 5. Repeat renal function in AM 6. U/A 7. Stool OB
[2017-11-16 14:15] VITALS: BP 110/60
--- NOTE | 2017-11-16 17:14 | ULTRASOUND REPORT ---
EXAMINATION: RENAL ULTRASOUND CLINICAL INFORMATION: Acute kidney injury. COMPARISON: 07/24/2017. TECHNIQUE: Real-time imaging of the kidneys and bladder. FINDINGS: RIGHT KIDNEY: There is no hydronephrosis. There is a 4 mm obstructive calculus within the interpole region. There is a 2.5 cm cyst within the interpole region and a 7 mm cyst within the lower pole. The right kidney measures 10.8 cm. LEFT KIDNEY: There is neither hydronephrosis nor nephrolithiasis. Within the upper pole, there is a 5.4 cm cyst. Within the interpole region, there are cysts measuring 12 mm and 9 mm The left kidney measures 12.6 cm. BLADDER: The urinary bladder is partially filled and unremarkable. There is no wall thickening. There is no pelvic free fluid. IMPRESSION: Punctate nonobstructive right renal calculus. No hydronephrosis. Bilateral renal cysts.
[2017-11-17 06:45] VITALS: BP 120/50
--- NOTE | 2017-11-17 07:25 | PN- Housestaff ---
See Addendum Subjective Follow-up For: GRECIA Hyperkalemia Acute on chronic anemia Elevated troponins Tele-Events Since Last Visit: SB to NSR: [id number] Subjective: Patient was seen and examined today. Patient was sitting up at the edge of his bed eating breakfast this morning. Patient has no complaints today. Denies any chest pain, palpitations, weakness, dizziness, lightheadedness, shortness of breath, dysuria/hematuria, nausea/vomiting/diarrhea/constipation, bright red blood per stool, melena, hemoptysis. Patient notes that he did have trouble sleeping overnight. No acute events overnight. Review of Systems Constitutional: Reports: no symptoms. EENTM: Reports: no symptoms. Cardiovascular: Reports: no symptoms. Respiratory: Reports: no symptoms. Gastrointestinal: Reports: no symptoms. Genitourinary: Reports: no symptoms. Musculoskeletal: Reports: joint pain (chronic shoulder pain). Neurological/Psychological: Reports: no symptoms. Objective Last 24 Hrs of Vital Signs/I&O Vital Signs Date Time Temp Pulse Resp B/P B/P Pulse O2 O2 Flow FiO2 Mean Ox Delivery Rate 11/17 0645 98.0 50 20 120/50 94 Room Air 11/17 0000 97 Room Air 11/16 1415 97.7 48 20 110/60 93 Room Air Intake & Output 11/17 0800 11/17 0000 11/16 1600 Intake Total 750 600 Output Total 200 350 Balance 550 250 Intake, IV 450 400 Intake, Oral 300 200 Output, Urine 200 350 Physical Exam General Appearance: Alert, Cooperative, No Acute Distress Skin Temp/Moisture Exam: Warm/Dry HEENT: Atraumatic, PERRLA, EOMI, Mucous Membr. moist/pink Cardiovascular: Regular Rate, Normal S1, Normal S2 Lungs: Clear to Auscultation, Normal Air Movement Abdomen: Normal Bowel Sounds, Soft, No Tenderness Neurological: Normal Speech Extremities: No Clubbing, No Cyanosis, Normal Pulses, No Tenderness/Swelling, bilateral lower extermity trace edema Vascular: Pulses Symmetrical Current Medications: Current Medications Sig/Salome Start time Last Medication Dose Route Stop Time Status Admin Aspirin Buffered 81 MG QAM 11/14 1000 AC 11/16 PO 09 Atorvastatin Calcium 80 MG QAM 11/14 1000 AC 11/16 PO 0903 Clopidogrel Bisulfate 75 MG DAILY 11/14 1000 AC 11/16 PO 09 Cyanocobalamin 1,000 MCG DAILY 11/14 1000 AC 11/16 PO 09 Ezetimibe 10 MG DAILY 11/14 1000 AC 11/16 PO 09 Ferrous Sulfate 325 MG TID 11/14 1000 AC 11/16 PO 204 Glycerin/Mineral Oil 1 TULIO TID PRN 11/14 1700 AC TOP Insulin Aspart 0 TIDAC 11/14 0800 AC 11/14 SC 1714 Levothyroxine Sodium 0.025 MG DAILY AC 11/14 0700 AC 11/17 PO 0623 Lorazepam 0.5 MG DAILY 11/14 1000 AC 11/16 PO 11/21 0959 0901 Melatonin 5 MG AT BEDTIME 11/17 2200 AC PO Oxycodone HCl 10 MG Q6-PRN PRN 11/14 011 AC 11/16 PO 2046 Oxycodone/ 1 TAB Q6 PRN 11/14 011 AC 11/17 Acetaminophen PO 0010 Sertraline HCl 50 MG DAILY 11/14 1000 AC 11/16 PO 901 Sodium Bicarbonate 50 MEQ Q20H 11/14 0930 AC 11/17 Dextrose/Water 1,000 ML IV 0621 Last 24 Hrs of Lab/Sadi Results Last 24 Hrs of Labs/Mics: Laboratory Tests 11/17/17 0644: Anion Gap 12, Estimated GFR 30 L, BUN/Creatinine Ratio 35.5 H, CBC w Diff NO MAN DIFF REQ, RBC 2.88 L, MCV 91.3, MCH 30.8, MCHC 33.7, RDW 18.1 H, MPV 7.5, Gran % 70.2, Lymphocytes % 9.9 L, Monocytes % 14.0 H, Eosinophils % 5.4 H, Basophils % 0.5, Absolute Granulocytes 4.6, Absolute Lymphocytes 0.6 L, Absolute Monocytes 0.9 H, Absolute Eosinophils 0.4, Absolute Basophils 0 11/16/17 1900: Urine Color YEL, Urine Clarity CLEAR, Urine pH 6.0, Ur Specific [place] 1.025, Urine Protein TRACE H, Urine Ketones NEG, Urine Nitrite NEG, Urine Bilirubin NEG, Urine Urobilinogen 0.2, Ur Leukocyte Esterase TRACE H, Ur Microscopic SEDIMENT EXAMINED, Urine RBC RARE, Urine WBC 25-50 H, Ur Epithelial Cells FEW, Hyaline Casts FEW H, Urine Mucus RARE, Urine Hemoglobin NEG, Urine Glucose NEG Assessment/Plan Assessment: 67-year-old gentleman with a significant past medical history for CAD status post CABG and stent placement 2016, aortic stenosis status post bovine AVR, heart failure with reduced ejection fraction, E, hypertension, hyperlipidemia, insulin-dependent diabetes, status post femoropopliteal bypass of left extremity is 17 by his PCP for evaluation of hyperkalemia. Patient today remains asymptomatic. Vital signs stable. Patient's sugars remain within normal range: 112 to 180. Patient is status post 2 PRBC on 11/13 and 11/15 with a stable H&H today of >8.9 &26.3. Patient's potassium has increased slighly today to 5.4. Patient's creatinine has improved signficantly since admission, is a 2.2 today. Patient's baseline is 1.6. Patient had a renal ultrasound which ruled out obstruction. Per nephrophology patient may have a component of cardiorenal and this may be patient's new baseline. Patient may require inotropic agents. Will defer to cardiology for further recommendations. 1. Hyperkalemia - mildly elevated 2. GRECIA on CKD - improving 3. Anemia - improving 4. Demand Ischemia Impression * Hyperkalemia. Differentials include CKD induced hyperkalemia. Metabolic acidosis has a tendency of causing hyperkalemia. * Acute on chronic anemia. Normocytic. Review of [place] records indicated that I and studies were done before which were not very impressive for iron deficiency anemia. However it is noted the patient is on ferrous sulfate 3 times a day. His normocytic anemia is most likely secondary to kidney disease. Is no sign of acute blood loss and patient is denying any melena, malignancy is always a concern when a 67-year-old patient is presenting with anemia of unknown cause. He does report a normal recent colonoscopy however patient indicated that he was supposed to follow-up with the [facility]. * Elevated troponin. In the setting of a low h/h and the absence of any chest pain and ischemic EKG changes, presentation is more consistent with demand supply mismatch from the anemia rather than an ACS. His chronic kidney disease is contributory to the elevated troponin due to decrease washout. Plan Admit to telemetry for close cardiac monitoring Discontinued sodium bicarb D5W @ 50 cc/hr In the setting of GRECIA will continue to hold lasix and lisinopril Cardiology onboard. Appreciate recommendations. Nephrology onboard. Appreciate recommendations. Echo pending will guiac all stools Accu-Chek TIDAC/qHS a very low intense NovoLog sliding scale DVT prophylaxis: Alps, will hold off pharmacological agents in the setting of anemia in a patient with positive troponins and a history of CAD. CODE STATUS: Full code Problem List: 1. CHF exacerbation 2. Anemia 3. GRECIA (acute kidney injury) Pain Ratin Pain Location: shoulder Pain Goal: Pain 7 or less Pain Plan: percocet Tomorrow's Labs & Rationales: bep - creatinine cbc - anemia
[2017-11-17 08:31] LABS: ABSOLUTE BASOPHIL COUNT 0 /CUMM (0.0-0.2); ABSOLUTE EOSINOPHIL COUNT 0.4 /CUMM (0.0-0.7); ABSOLUTE GRANULOCYTE CT 4.6 /CUMM (1.4-6.5); ABSOLUTE LYMPH COUNT 0.6 /CUMM (1.2-3.4); ABSOLUTE MONOCYTE COUNT 0.9 /CUMM (0.10-0.60); BASOPHIL % 0.5 % (0.0-2.0); EOSINOPHIL % 5.4 % (0-5); GRANULOCYTE % 70.2 % (42.2-75.2); HEMATOCRIT 26.3 % (42-52); MEAN CORPUSCULAR HGB 30.8 PG (27.0-31.0); MEAN CORPUSCULAR HGB CONC 33.7 G/DL (33.0-37.0); MEAN CORPUSCULAR VOLUME 91.3 FL (80.0-94.0); MEAN PLATELET VOLUME 7.5 FL (7.4-10.4); PLATELET COUNT 183 /CUMM (130-400); RBC DISTRIBUTION WIDTH 18.1 % (11.5-14.5); RED BLOOD CELL CT 2.88 /CUMM (4.70-6.10); WHITE BLOOD CELL COUNT 6.6 /CUMM (4.8-10.8)
--- NOTE | 2017-11-17 09:49 | PN- Diabetes ---
Assessment/Plan Assessment: 67-year-old male with a PMH significant for aortic stenosis status post bovine aortic valve replacement, CAD with MD status post CABG and stent placement, HFrEF, CKD, HTN, HLD, diabetes s/p multiple toe amputations, PVD status post femoropopliteal bypass, chronic right shoulder pain who was sent in by his PCP for elevated potassium level. But his glucose level was found to be low. Now he is on Novolog coverage and bicarb drip in D5W at 50 ml/hour. IN addition, he is on Novolog coverage before meals when his glucose level is over 200. His FSGs were 139, 147, 147, 150 and 112. He eats meals well. Plan: continue the current treatment. As he hasn't been receiving insulin coverage in the hospital, he probably can be discharged with diet control only when he is ready to be discharged medically. Subjective Subjective: He feels well. Objective Last 24 Hrs of Vital Signs/I&O Vital Signs Date Time Temp Pulse Resp B/P B/P Pulse O2 O2 Flow FiO2 Mean Ox Delivery Rate 11/17 0645 98.0 50 20 120/50 94 Room Air 11/17 0000 97 Room Air 11/16 1415 97.7 48 20 110/60 93 Room Air Intake & Output 11/17 1600 11/17 0800 11/17 0000 Intake Total 200 750 Output Total 450 200 Balance -250 550 Intake, IV 450 Intake, Oral 200 300 Output, Urine 450 200 Findings Pertinent Lab/Sadi Results: Laboratory Tests 11/17 11/16 0644 1900 Chemistry Sodium (137 - 145 mmol/L) 139 Potassium (3.5 - 5.1 mmol/L) 5.4 H Chloride (98 - 107 mmol/L) 105 Carbon Dioxide (22 - 30 mmol/L) 22 Anion Gap (5 - 16) 12 BUN (9 - 20 mg/dL) 78 H Creatinine (0.7 - 1.2 mg/dL) 2.2 H Estimated GFR (>60 ml/min) 30 L BUN/Creatinine Ratio (7 - 25 %) 35.5 H Hematology CBC w Diff NO MAN DIFF REQ WBC (4.8 - 10.8 /CUMM) 6.6 RBC (4.70 - 6.10 /CUMM) 2.88 L Hgb (14.0 - 18.0 G/DL) 8.9 L Hct (42 - 52 %) 26.3 L MCV (80.0 - 94.0 FL) 91.3 MCH (27.0 - 31.0 PG) 30.8 MCHC (33.0 - 37.0 G/DL) 33.7 RDW (11.5 - 14.5 %) 18.1 H Plt Count (130 - 400 /CUMM) 183 MPV (7.4 - 10.4 FL) 7.5 Gran % (42.2 - 75.2 %) 70.2 Lymphocytes % (20.5 - 51.1 %) 9.9 L Monocytes % (1.7 - 9.3 %) 14.0 H Eosinophils % (0 - 5 %) 5.4 H Basophils % (0.0 - 2.0 %) 0.5 Absolute Granulocytes (1.4 - 6.5 /CUMM) 4.6 Absolute Lymphocytes (1.2 - 3.4 /CUMM) 0.6 L Absolute Monocytes (0.10 - 0.60 /CUMM) 0.9 H Absolute Eosinophils (0.0 - 0.7 /CUMM) 0.4 Absolute Basophils (0.0 - 0.2 /CUMM) 0 Urines Urine Color (YEL,AMB,STR) YEL Urine Clarity (CLEAR) CLEAR Urine pH (5.0 - 8.0) 6.0 Ur Specific [place] (1.001 - 1.035) 1.025 Urine Protein (NEG,<30 MG/DL) TRACE H Urine Ketones (NEG) NEG Urine Nitrite (NEG) NEG Urine Bilirubin (NEG) NEG Urine Urobilinogen (0.1 - 1.0 EU/dl) 0.2 Ur Leukocyte Esterase (NEG) TRACE H Ur Microscopic SEDIMENT EXAMINED Urine RBC (0 - 5 /HPF) RARE Urine WBC (0 - 2 /HPF) 25-50 H Ur Epithelial Cells (NONE,FEW) FEW Hyaline Casts (0/LPF) FEW H Urine Mucus (FEW,NONE) RARE Urine Hemoglobin (NEG) NEG Urine Glucose (N MG/DL) NEG
--- NOTE | 2017-11-17 10:39 | PN- Nephrology ---
Assessment/Plan Assessment: 1. GRECIA: improving prerenal w cardiorenal syndrome 2. CKD: mod, stage 3, due to HTN, DM, & cardiorenal w mult episodes GRECIA; baseline Cr mid 1s 3. Hyperkalemia: mild; no intervention needed Suggestion: 1. d/c IV Na bicarb 2. consider inotropic support 3. check stool OB Subjective Subjective: Lying flat w/o SOB No uremic sx No diarrhea Objective Vital Signs and I&Os Vital Signs Date Time Temp Pulse Resp B/P B/P Pulse O2 O2 Flow FiO2 Mean Ox Delivery Rate 11/17 0645 98.0 50 20 120/50 94 Room Air 11/17 0000 97 Room Air 11/16 1415 97.7 48 20 110/60 93 Room Air Intake & Output 11/17 1600 11/17 0400 11/16 1600 11/16 0400 11/15 1600 11/15 0400 Intake Total 366 903 6799 975 1300 775 Output Total 450 200 350 300 450 375 Balance -250 550 750 675 850 400 Intake, Blood 350 Product Intake, IV 450 800 250 800 300 Intake, Oral 200 300 300 375 500 475 Number 0 0 Bowel Movements Output, Urine 450 200 350 300 450 375 Physical Exam General Appearance: no apparent distress, alert Head: atraumatic Neck: normal inspection Respiratory: no respiratory distress, quiet respiration, decreased breath sounds (bases) Cardiovascular: regular rate/rhythm, systolic murmur Abdomen: soft, non-tender, no organomegaly Extremities: swelling Neurologic/Psychiatric: no motor/sensory deficits, awake, alert Current Medications: Current Medications Sig/Salome Start time Last Medication Dose Route Stop Time Status Admin Aspirin Buffered 81 MG QAM 11/14 1000 AC 11/17 PO 0925 Atorvastatin Calcium 80 MG QAM 11/14 1000 AC 11/17 PO 0925 Clopidogrel Bisulfate 75 MG DAILY 11/14 1000 AC 11/17 PO 0925 Cyanocobalamin 1,000 MCG DAILY 11/14 1000 AC 11/17 PO 0925 Ezetimibe 10 MG DAILY 11/14 1000 AC 11/17 PO 0925 Ferrous Sulfate 325 MG TID 11/14 1000 AC 11/17 PO 0925 Glycerin/Mineral Oil 1 TULIO TID PRN 11/14 1700 AC TOP Insulin Aspart 0 TIDAC 11/14 0800 AC 11/14 SC 1714 Levothyroxine Sodium 0.025 MG DAILY AC 11/14 0700 AC 11/17 PO 0623 Lorazepam 0.5 MG DAILY 11/14 1000 AC 11/17 PO 11/21 0959 0924 Melatonin 5 MG AT BEDTIME 11/17 2200 AC PO Oxycodone HCl 10 MG Q6-PRN PRN 11/14 011 AC 11/17 PO 0924 Oxycodone/ 1 TAB Q6 PRN 11/14 0115 AC 11/17 Acetaminophen PO 0010 Sertraline HCl 50 MG DAILY 11/14 1000 AC 11/17 PO 09 Sodium Bicarbonate 50 MEQ Q20H 11/14 0930 AC 11/17 Dextrose/Water 1,000 ML IV 0621 Results Pertinent Lab Results: Laboratory Tests 11/17 11/16 0644 1900 Chemistry Sodium (137 - 145 mmol/L) 139 Potassium (3.5 - 5.1 mmol/L) 5.4 H Chloride (98 - 107 mmol/L) 105 Carbon Dioxide (22 - 30 mmol/L) 22 Anion Gap (5 - 16) 12 BUN (9 - 20 mg/dL) 78 H Creatinine (0.7 - 1.2 mg/dL) 2.2 H Estimated GFR (>60 ml/min) 30 L BUN/Creatinine Ratio (7 - 25 %) 35.5 H Hematology CBC w Diff NO MAN DIFF REQ WBC (4.8 - 10.8 /CUMM) 6.6 RBC (4.70 - 6.10 /CUMM) 2.88 L Hgb (14.0 - 18.0 G/DL) 8.9 L Hct (42 - 52 %) 26.3 L MCV (80.0 - 94.0 FL) 91.3 MCH (27.0 - 31.0 PG) 30.8 MCHC (33.0 - 37.0 G/DL) 33.7 RDW (11.5 - 14.5 %) 18.1 H Plt Count (130 - 400 /CUMM) 183 MPV (7.4 - 10.4 FL) 7.5 Gran % (42.2 - 75.2 %) 70.2 Lymphocytes % (20.5 - 51.1 %) 9.9 L Monocytes % (1.7 - 9.3 %) 14.0 H Eosinophils % (0 - 5 %) 5.4 H Basophils % (0.0 - 2.0 %) 0.5 Absolute Granulocytes (1.4 - 6.5 /CUMM) 4.6 Absolute Lymphocytes (1.2 - 3.4 /CUMM) 0.6 L Absolute Monocytes (0.10 - 0.60 /CUMM) 0.9 H Absolute Eosinophils (0.0 - 0.7 /CUMM) 0.4 Absolute Basophils (0.0 - 0.2 /CUMM) 0 Urines Urine Color (YEL,AMB,STR) YEL Urine Clarity (CLEAR) CLEAR Urine pH (5.0 - 8.0) 6.0 Ur Specific [place] (1.001 - 1.035) 1.025 Urine Protein (NEG,<30 MG/DL) TRACE H Urine Ketones (NEG) NEG Urine Nitrite (NEG) NEG Urine Bilirubin (NEG) NEG Urine Urobilinogen (0.1 - 1.0 EU/dl) 0.2 Ur Leukocyte Esterase (NEG) TRACE H Ur Microscopic SEDIMENT EXAMINED Urine RBC (0 - 5 /HPF) RARE Urine WBC (0 - 2 /HPF) 25-50 H Ur Epithelial Cells (NONE,FEW) FEW Hyaline Casts (0/LPF) FEW H Urine Mucus (FEW,NONE) RARE Urine Hemoglobin (NEG) NEG Urine Glucose (N MG/DL) NEG 11/16 11/15 0626 0610 Chemistry Sodium (137 - 145 mmol/L) 138 139 Potassium (3.5 - 5.1 mmol/L) 5.1 5.4 H Chloride (98 - 107 mmol/L) 107 108 H Carbon Dioxide (22 - 30 mmol/L) 21 L 17 L Anion Gap (5 - 16) 11 14 BUN (9 - 20 mg/dL) 80 H 76 H Creatinine (0.7 - 1.2 mg/dL) 2.4 H 2.4 H Estimated GFR (>60 ml/min) 27 L 27 L BUN/Creatinine Ratio (7 - 25 %) 33.3 H 31.7 H Hematology CBC w Diff NO MAN DIFF REQ NO MAN DIFF REQ WBC (4.8 - 10.8 /CUMM) 6.8 7.5 RBC (4.70 - 6.10 /CUMM) 2.77 L 2.59 L Hgb (14.0 - 18.0 G/DL) 8.5 L 7.9 L Hct (42 - 52 %) 25.3 L 23.6 L MCV (80.0 - 94.0 FL) 91.3 91.4 MCH (27.0 - 31.0 PG) 30.8 30.3 MCHC (33.0 - 37.0 G/DL) 33.7 33.2 RDW (11.5 - 14.5 %) 17.9 H 19.1 H Plt Count (130 - 400 /CUMM) 165 186 MPV (7.4 - 10.4 FL) 7.5 7.6 Gran % (42.2 - 75.2 %) 73.7 76.0 H Lymphocytes % (20.5 - 51.1 %) 7.7 L 7.8 L Monocytes % (1.7 - 9.3 %) 13.1 H 11.2 H Eosinophils % (0 - 5 %) 4.8 4.5 Basophils % (0.0 - 2.0 %) 0.7 0.5 Absolute Granulocytes (1.4 - 6.5 /CUMM) 5.0 5.7 Absolute Lymphocytes (1.2 - 3.4 /CUMM) 0.5 L 0.6 L Absolute Monocytes (0.10 - 0.60 /CUMM) 0.9 H 0.8 H Absolute Eosinophils (0.0 - 0.7 /CUMM) 0.3 0.3 Absolute Basophils (0.0 - 0.2 /CUMM) 0 0 Imaging/Other Studies: Renal US: FINDINGS: RIGHT KIDNEY: There is no hydronephrosis. There is a 4 mm nonobstructive calculus within the interpole region. There is a 2.5 cm cyst within the interpole region and a 7 mm cyst within the lower pole. The right kidney measures 10.8 cm. LEFT KIDNEY: There is neither hydronephrosis nor nephrolithiasis. Within the upper pole, there is a 5.4 cm cyst. Within the interpole region, there are cysts measuring 12 mm and 9 mm The left kidney measures 12.6 cm. BLADDER: The urinary bladder is partially filled and unremarkable. There is no wall thickening. There is no pelvic free fluid. IMPRESSION: Punctate nonobstructive right renal calculus. No hydronephrosis. Bilateral renal cysts CXR: IMPRESSION: Mild bibasilar atelectasis. Possible small right pleural effusion. Cardiomegaly.
[2017-11-17 14:55] VITALS: BP 120/60; BP 130/70
[2017-11-17 22:36] VITALS: BP 132/70
[2017-11-18 06:43] VITALS: BP 126/54
--- NOTE | 2017-11-18 08:18 | PN- Housestaff ---
See Addendum Subjective Follow-up For: GRECIA Hyperkalemia Acute on chronic anemia Elevated troponins Subjective: Patient was seen and examined today. Patient reports no complaints today. Patient was later examined after nurse reported that patient was confused. Patient appeared disoriented and confused after receiving Ativan and Yina. No acute events overnight. Review of Systems Constitutional: Reports: no symptoms. Cardiovascular: Reports: no symptoms. Respiratory: Reports: no symptoms. Gastrointestinal: Reports: no symptoms. Genitourinary: Reports: no symptoms. Musculoskeletal: Reports: no symptoms. Neurological/Psychological: Reports: confusion. Objective Last 24 Hrs of Vital Signs/I&O Vital Signs Date Time Temp Pulse Resp B/P B/P Pulse O2 O2 Flow FiO2 Mean Ox Delivery Rate 11/18 1434 97.5 70 20 110/60 93 Room Air 11/18 0643 99.9 55 16 126/54 93 Room Air 11/17 2236 98.0 44 20 132/70 92 Intake & Output 11/18 1600 11/18 0800 11/18 0000 Intake Total 700 328 250 Output Total 1125 400 300 Balance -425 -72 -50 Intake, IV 10 Intake, Oral 700 318 250 Number 0 Bowel Movements Output, Urine 1125 400 300 Patient 160 lb Weight Physical Exam General Appearance: Alert, Oriented X3, Cooperative, No Acute Distress HEENT: Atraumatic, PERRLA, EOMI, Mucous Membr. moist/pink Cardiovascular: Regular Rate, Normal S1, Normal S2 Lungs: Clear to Auscultation, Normal Air Movement Abdomen: Normal Bowel Sounds, Soft, No Tenderness Neurological: Normal Gait, Normal Speech, Strength at 5/5 X4 Ext, Normal Tone, Sensation Intact, Cranial Nerves 3-12 NL, Reflexes 2+ Extremities: No Clubbing, No Cyanosis, Normal Pulses, No Tenderness/Swelling, bilateral lower extremity edema Vascular: Normal Pulses, Pulses Symmetrical Current Medications: Current Medications Sig/Salome Start time Last Medication Dose Route Stop Time Status Admin Acetaminophen 650 MG Q4P PRN 11/18 0900 AC PO Aspirin Buffered 81 MG QAM 11/14 1000 AC 11/18 PO 0812 Atorvastatin Calcium 80 MG QAM 11/14 1000 AC 11/18 PO 08 Clopidogrel Bisulfate 75 MG DAILY 11/14 1000 AC 11/18 PO 08 Cyanocobalamin 1,000 MCG DAILY 11/14 1000 AC 11/18 PO 0811 Docusate Sodium 100 MG DAILY 11/17 1615 AC 11/18 PO 0812 Ezetimibe 10 MG DAILY 11/14 1000 AC 11/18 PO 08 Ferrous Sulfate 325 MG TID 11/14 1000 AC 11/18 PO 2049 Glycerin/Mineral Oil 1 TULIO TID PRN 11/14 1700 AC TOP Heparin Sodium 25,000 UNIT Q24H 11/18 1915 AC 11/18 (Porcine) IV 1918 Sodium Chloride 500 ML Insulin Aspart 0 TIDAC 11/14 0800 DC 11/14 SC 1714 Levothyroxine Sodium 0.025 MG DAILY AC 11/14 0700 AC 11/18 PO 0626 Lorazepam 0.5 MG DAILY 11/14 1000 AC 11/18 PO 11/21 0959 0810 Melatonin 5 MG AT BEDTIME 11/17 220 AC 11/18 PO 2049 Oxycodone HCl 10 MG Q6-PRN PRN 11/14 0115 AC 11/18 PO 0811 Oxycodone/ 1 TAB Q6 PRN 11/14 011 AC 11/17 Acetaminophen PO 1418 Polyethylene Glycol 17 GM DAILY 11/17 1615 AC 11/18 PO 08 Senna 187 MG AT BEDTIME 11/17 220 AC 11/18 PO 2049 Sertraline HCl 50 MG DAILY 11/14 1000 AC 11/18 PO 08 Last 24 Hrs of Lab/Sadi Results Last 24 Hrs of Labs/Mics: Laboratory Tests 11/18/17 1735: Urine Color YEL, Urine Clarity CLEAR, Urine pH 6.0, Ur Specific [place] 1.020, Urine Protein TRACE H, Urine Ketones NEG, Urine Nitrite NEG, Urine Bilirubin NEG, Urine Urobilinogen 0.2, Ur Leukocyte Esterase NEG, Ur Microscopic SEDIMENT EXAMINED, Urine RBC 1-3, Urine WBC RARE, Ur Epithelial Cells RARE, Urine Bacteria RARE H, Urine Hemoglobin SMALL H, Urine Glucose NEG 11/18/17 0938: Anion Gap 12, Estimated GFR 38 L, BUN/Creatinine Ratio 41.1 H, CBC w Diff NO MAN DIFF REQ, RBC 2.86 L, MCV 90.3, MCH 31.0, MCHC 34.3, RDW 17.2 H, MPV 7.4, Gran % 73.8, Lymphocytes % 8.2 L, Monocytes % 11.6 H, Eosinophils % 6.2 H, Basophils % 0.2, Absolute Granulocytes 4.9, Absolute Lymphocytes 0.5 L, Absolute Monocytes 0.8 H, Absolute Eosinophils 0.4, Absolute Basophils 0 Microbiology 11/18 1735 URINE ROUT: Urine Culture - RECD Assessment/Plan Assessment: 67-year-old gentleman with a significant past medical history for CAD status post CABG and stent placement 2015, aortic stenosis status post bovine AVR, heart failure with reduced ejection fraction, E, hypertension, hyperlipidemia, insulin-dependent diabetes, status post femoropopliteal bypass of left extremity is 17 by his PCP for evaluation of hyperkalemia. Patient today appeared confused over was alert and oriented 3 after receiving Ativan and pain medication. Patient's creatinine has improved today and is close to his baseline at 1.8. Patient's H&H is stable. Patient had a renal ultrasound which ruled out obstruction. Per nephrophology patient may have a component of cardiorenal and this may be patient's new baseline. Patient may require inotropic agents. Will defer to cardiology for further recommendations. Patient's echo today showed possible apical thrombus. Patient was started on IV heparin. Patient will have a repeat limited echo tomorrow to further evaluate suspected thrombus. 1. Hyperkalemia - mildly elevated 2. GRECIA on CKD - improving 3. Anemia - improving 4. Demand Ischemia 5. ?Atypical thrombus Impression * Hyperkalemia. Differentials include CKD induced hyperkalemia. Metabolic acidosis has a tendency of causing hyperkalemia. * Acute on chronic anemia. Normocytic. Review of [facility] records indicated that I and studies were done before which were not very impressive for iron deficiency anemia. However it is noted the patient is on ferrous sulfate 3 times a day. His normocytic anemia is most likely secondary to kidney disease. Is no sign of acute blood loss and patient is denying any melena, malignancy is always a concern when a 67-year-old patient is presenting with anemia of unknown cause. He does report a normal recent colonoscopy however patient indicated that he was supposed to follow-up with the [facility]. * Elevated troponin. In the setting of a low h/h and the absence of any chest pain and ischemic EKG changes, presentation is more consistent with demand supply mismatch from the anemia rather than an ACS. His chronic kidney disease is contributory to the elevated troponin due to decrease washout. Plan Admit to telemetry for close cardiac monitoring Patient was fecal occult blood positive. IV heparin was started slowly with caution as patient has received 2 transfusions this admission however his H&H has remained stable over the past few days. Repeat echo In the setting of GRECIA will continue to hold lasix and lisinopril Cardiology onboard. Appreciate recommendations. Nephrology onboard. Appreciate recommendations. will guiac all stools Accu-Chek TIDAC/qHS a very low intense NovoLog sliding scale DVT prophylaxis: Alps, will hold off pharmacological agents in the setting of anemia in a patient with positive troponins and a history of CAD. CODE STATUS: Full code Problem List: 1. Symptomatic anemia 2. Hyperkalemia 3. Left ventricular apical thrombus Pain Ratin Pain Location: shoulder Pain Goal: Pain 4 or less Pain Plan: percocet tylenol Tomorrow's Labs & Rationales: bep cbc
--- NOTE | 2017-11-18 10:08 | PN- Nephrology ---
Assessment/Plan Assessment: 1. GRECIA: prerenal w cardiorenal syndrome 2. CKD: mod, stage 3, due to HTN, DM, & cardiorenal w mult episodes GRECIA; baseline Cr mid 1s 3. Hyperkalemia: mild; recheck Suggestion: 1. echocardiogram 2. consider inotropic support if worsens Subjective Subjective: Denies CP or SOB No uremic sx Objective Vital Signs and I&Os Vital Signs Date Time Temp Pulse Resp B/P B/P Pulse O2 O2 Flow FiO2 Mean Ox Delivery Rate 11/18 0643 99.9 55 16 126/54 93 Room Air 11/17 2236 98.0 44 20 132/70 92 11/17 1600 Room Air 11/17 1455 98.0 53 20 120/60 95 Room Air Intake & Output 11/18 1600 11/18 0400 11/17 1600 11/17 0400 11/16 1600 11/16 0400 Intake Total 378 061 5355 750 1100 975 Output Total 353 258 3034 200 350 300 Balance -72 -50 50 550 750 675 Intake, Blood 350 Product Intake, IV 10 250 450 800 250 Intake, Oral 318 250 800 300 300 375 Number 0 0 0 Bowel Movements Output, Urine 735 282 0846 200 350 300 Patient 160 lb Weight Physical Exam General Appearance: well developed/nourished, no apparent distress, alert, awake Head: atraumatic Ears, Nose, Throat: normal ENT inspection Neck: normal inspection Respiratory: decreased breath sounds (R base) Cardiovascular: regular rate/rhythm, systolic murmur Abdomen: soft, non-tender, no organomegaly Extremities: swelling Neurologic/Psychiatric: awake, alert Current Medications: Current Medications Sig/Salome Start time Last Medication Dose Route Stop Time Status Admin Acetaminophen 650 MG Q4P PRN 11/18 0900 AC PO Aspirin Buffered 81 MG QAM 11/14 1000 AC 11/18 PO 0812 Atorvastatin Calcium 80 MG QAM 11/14 1000 AC 11/18 PO 0812 Clopidogrel Bisulfate 75 MG DAILY 11/14 1000 AC 11/18 PO 0811 Cyanocobalamin 1,000 MCG DAILY 11/14 1000 AC 11/18 PO 08 Docusate Sodium 100 MG DAILY 11/17 1615 AC 11/18 PO 0812 Ezetimibe 10 MG DAILY 11/14 1000 AC 11/18 PO 0811 Ferrous Sulfate 325 MG TID 11/14 1000 AC 11/18 PO 0811 Glycerin/Mineral Oil 1 TULIO TID PRN 11/14 1700 AC TOP Insulin Aspart 0 TIDAC 11/14 0800 DC 11/14 SC 1714 Levothyroxine Sodium 0.025 MG DAILY AC 11/14 0700 AC 11/18 PO 0626 Lorazepam 0.5 MG DAILY 11/14 1000 AC 11/18 PO 11/21 0959 0810 Melatonin 5 MG AT BEDTIME 11/17 2200 AC 11/17 PO 220 Oxycodone HCl 10 MG Q6-PRN PRN 11/14 0115 AC 11/18 PO 0811 Oxycodone/ 1 TAB Q6 PRN 11/14 0115 AC 11/17 Acetaminophen PO 1418 Polyethylene Glycol 17 GM DAILY 11/17 1615 AC 11/18 PO 0813 Senna 187 MG AT BEDTIME 11/17 220 AC 11/17 PO 220 Sertraline HCl 50 MG DAILY 11/14 1000 AC 11/18 PO 0812 Sodium Bicarbonate 50 MEQ Q20H 11/14 0930 DC 11/17 Dextrose/Water 1,000 ML IV 0621 Results Pertinent Lab Results: Laboratory Tests 11/18 11/17 0938 0644 Chemistry Sodium (137 - 145 mmol/L) Pending 139 Potassium (3.5 - 5.1 mmol/L) Pending 5.4 H Chloride (98 - 107 mmol/L) Pending 105 Carbon Dioxide (22 - 30 mmol/L) Pending 22 Anion Gap (5 - 16) Pending 12 BUN (9 - 20 mg/dL) Pending 78 H Creatinine (0.7 - 1.2 mg/dL) Pending 2.2 H Estimated GFR (>60 ml/min) 30 L BUN/Creatinine Ratio (7 - 25 %) Pending 35.5 H Hematology CBC w Diff Pending NO MAN DIFF REQ WBC (4.8 - 10.8 /CUMM) Pending 6.6 RBC (4.70 - 6.10 /CUMM) Pending 2.88 L Hgb (14.0 - 18.0 G/DL) Pending 8.9 L Hct (42 - 52 %) Pending 26.3 L MCV (80.0 - 94.0 FL) Pending 91.3 MCH (27.0 - 31.0 PG) Pending 30.8 MCHC (33.0 - 37.0 G/DL) Pending 33.7 RDW (11.5 - 14.5 %) Pending 18.1 H Plt Count (130 - 400 /CUMM) Pending 183 MPV (7.4 - 10.4 FL) Pending 7.5 Gran % (42.2 - 75.2 %) 70.2 Lymphocytes % (20.5 - 51.1 %) 9.9 L Monocytes % (1.7 - 9.3 %) 14.0 H Eosinophils % (0 - 5 %) 5.4 H Basophils % (0.0 - 2.0 %) 0.5 Absolute Granulocytes (1.4 - 6.5 /CUMM) 4.6 Absolute Lymphocytes (1.2 - 3.4 /CUMM) 0.6 L Absolute Monocytes (0.10 - 0.60 /CUMM) 0.9 H Absolute Eosinophils (0.0 - 0.7 /CUMM) 0.4 Absolute Basophils (0.0 - 0.2 /CUMM) 0 11/16 11/16 1900 0626 Chemistry Sodium (137 - 145 mmol/L) 138 Potassium (3.5 - 5.1 mmol/L) 5.1 Chloride (98 - 107 mmol/L) 107 Carbon Dioxide (22 - 30 mmol/L) 21 L Anion Gap (5 - 16) 11 BUN (9 - 20 mg/dL) 80 H Creatinine (0.7 - 1.2 mg/dL) 2.4 H Estimated GFR (>60 ml/min) 27 L BUN/Creatinine Ratio (7 - 25 %) 33.3 H Hematology CBC w Diff NO MAN DIFF REQ WBC (4.8 - 10.8 /CUMM) 6.8 RBC (4.70 - 6.10 /CUMM) 2.77 L Hgb (14.0 - 18.0 G/DL) 8.5 L Hct (42 - 52 %) 25.3 L MCV (80.0 - 94.0 FL) 91.3 MCH (27.0 - 31.0 PG) 30.8 MCHC (33.0 - 37.0 G/DL) 33.7 RDW (11.5 - 14.5 %) 17.9 H Plt Count (130 - 400 /CUMM) 165 MPV (7.4 - 10.4 FL) 7.5 Gran % (42.2 - 75.2 %) 73.7 Lymphocytes % (20.5 - 51.1 %) 7.7 L Monocytes % (1.7 - 9.3 %) 13.1 H Eosinophils % (0 - 5 %) 4.8 Basophils % (0.0 - 2.0 %) 0.7 Absolute Granulocytes (1.4 - 6.5 /CUMM) 5.0 Absolute Lymphocytes (1.2 - 3.4 /CUMM) 0.5 L Absolute Monocytes (0.10 - 0.60 /CUMM) 0.9 H Absolute Eosinophils (0.0 - 0.7 /CUMM) 0.3 Absolute Basophils (0.0 - 0.2 /CUMM) 0 Urines Urine Color (YEL,AMB,STR) YEL Urine Clarity (CLEAR) CLEAR Urine pH (5.0 - 8.0) 6.0 Ur Specific [place] (1.001 - 1.035) 1.025 Urine Protein (NEG,<30 MG/DL) TRACE H Urine Ketones (NEG) NEG Urine Nitrite (NEG) NEG Urine Bilirubin (NEG) NEG Urine Urobilinogen (0.1 - 1.0 EU/dl) 0.2 Ur Leukocyte Esterase (NEG) TRACE H Ur Microscopic SEDIMENT EXAMINED Urine RBC (0 - 5 /HPF) RARE Urine WBC (0 - 2 /HPF) 25-50 H Ur Epithelial Cells (NONE,FEW) FEW Hyaline Casts (0/LPF) FEW H Urine Mucus (FEW,NONE) RARE Urine Hemoglobin (NEG) NEG Urine Glucose (N MG/DL) NEG Imaging/Other Studies: Renal US: Punctate nonobstructive right renal calculus. No hydronephrosis. Bilateral renal cysts.
[2017-11-18 10:58] LABS: ABSOLUTE BASOPHIL COUNT 0 /CUMM (0.0-0.2); ABSOLUTE EOSINOPHIL COUNT 0.4 /CUMM (0.0-0.7); ABSOLUTE GRANULOCYTE CT 4.9 /CUMM (1.4-6.5); ABSOLUTE LYMPH COUNT 0.5 /CUMM (1.2-3.4); ABSOLUTE MONOCYTE COUNT 0.8 /CUMM (0.10-0.60); BASOPHIL % 0.2 % (0.0-2.0); EOSINOPHIL % 6.2 % (0-5); GRANULOCYTE % 73.8 % (42.2-75.2); HEMATOCRIT 25.9 % (42-52); MEAN CORPUSCULAR HGB CONC 34.3 G/DL (33.0-37.0); MEAN CORPUSCULAR VOLUME 90.3 FL (80.0-94.0); MEAN PLATELET VOLUME 7.4 FL (7.4-10.4); PLATELET COUNT 205 /CUMM (130-400); RBC DISTRIBUTION WIDTH 17.2 % (11.5-14.5); RED BLOOD CELL CT 2.86 /CUMM (4.70-6.10); WHITE BLOOD CELL COUNT 6.7 /CUMM (4.8-10.8)
--- NOTE | 2017-11-18 11:32 | Patient Discharge Instructions ---
Discharge Instructions General Discharge Information You were seen/treated for: Kidney failure Anemia High potassium Special Instructions: 1. Please follow-up with your PCP within 3 -4 DAYS of discharge and have blood work done by your PCP to monitor your renal function 2. Please follow-up with your tooler and life science teacher and database software technician. Referrals have been provided. 3. Please note the medication changes that have been made and take accordingly 4. Please speak to your tooler about a repeat ECHO in 2-3 weeks. 5. Please follow up with the civil process server for further evaluation of your anemia. 6. Please follow up with the foot setter for further evaluation of the anemia. 7. Please follow up with the banquet attendant to have a sleep study. Diet Continue normal diet: No Recommended Diet: Diabetic, Heart Healthy Acute Coronary Syndrome Inclusion Criteria At DC or during hospital stay patient has or had the following: ACS DIAGNOSIS No Discharge Core Measures Meds if any: Prescribed or Continued at Discharge Meds if any: NOT Prescribed or Continued at Discharge Congestive Heart Failure Inclusion Criteria At DC or during hospital stay patient has or had the following: CHF DIAGNOSIS No Discharge Core Measures Meds if any: Prescribed or Continued at Discharge Meds if any: NOT Prescribed or Continued at Discharge Cerebrovascular accident Inclusion Criteria At DC or during hospital stay patient has or had the following: CVA/TIA Diagnosis No Discharge Core Measures Meds if any: Prescribed or Continued at Discharge Meds if any: NOT Prescribed or Continued at Discharge Venous thromboembolism Inclusion Criteria VTE Diagnosis No VTE Type NONE VTE Confirmed by (Test) NONE Discharge Core Measures - Per Current guidelines, there needs to be overlap - treatment for the first 5 days of Warfarin therapy. - If discharged on Warfarin prior to 5 days of - overlap therapy, the patient will need to be - assessed for post discharge needs including - *Post discharge parental anticoagulation - *Warfarin and/or parental anticoagulation education - *Follow up date to check INR post discharge At least 5 days overlap therapy as Inpatient No Meds if any: Prescribed or Continued at Discharge Note: Overlap Therapy is Warfarin and Anticoagulant Meds if any: NOT Prescribed or Continued at Discharge
--- NOTE | 2017-11-18 13:24 | PN- Diabetes ---
Assessment/Plan Assessment: 67-year-old male with a PMH significant for aortic stenosis status post bovine aortic valve replacement, CAD with CO status post CABG and stent placement, HFrEF, CKD, HTN, HLD, diabetes s/p multiple toe amputations, PVD status post femoropopliteal bypass, chronic right shoulder pain who was sent in by his PCP for elevated potassium level. But his glucose level was found to be low. Now he is on Novolog coverage. He was on bicarb drip in D5W at 50 ml/hour which was discontinued. His FSGs were 112, 180, 137 and 78. He hasn't received insulin over the past several day. He eats meals well. Plan: 1. stop Novolog coverage; 2. diet control; 3. continue monitoring FSGs. will follow Subjective Subjective: He has no special complaints. Objective Last 24 Hrs of Vital Signs/I&O Vital Signs Date Time Temp Pulse Resp B/P B/P Pulse O2 O2 Flow FiO2 Mean Ox Delivery Rate 11/18 0643 99.9 55 16 126/54 93 Room Air 11/17 2236 98.0 44 20 132/70 92 11/17 1600 Room Air 11/17 1455 98.0 53 20 120/60 95 Room Air Intake & Output 11/18 1600 11/18 0800 11/18 0000 Intake Total 328 250 Output Total 400 300 Balance -72 -50 Intake, IV 10 Intake, Oral 318 250 Number 0 Bowel Movements Output, Urine 400 300 Patient 160 lb Weight Findings Pertinent Lab/Sadi Results: Laboratory Tests 11/18 0938 Chemistry Sodium (137 - 145 mmol/L) 141 Potassium (3.5 - 5.1 mmol/L) 5.2 H Chloride (98 - 107 mmol/L) 108 H Carbon Dioxide (22 - 30 mmol/L) 21 L Anion Gap (5 - 16) 12 BUN (9 - 20 mg/dL) 74 H Creatinine (0.7 - 1.2 mg/dL) 1.8 H Estimated GFR (>60 ml/min) 38 L BUN/Creatinine Ratio (7 - 25 %) 41.1 H Hematology CBC w Diff NO MAN DIFF REQ WBC (4.8 - 10.8 /CUMM) 6.7 RBC (4.70 - 6.10 /CUMM) 2.86 L Hgb (14.0 - 18.0 G/DL) 8.9 L Hct (42 - 52 %) 25.9 L MCV (80.0 - 94.0 FL) 90.3 MCH (27.0 - 31.0 PG) 31.0 MCHC (33.0 - 37.0 G/DL) 34.3 RDW (11.5 - 14.5 %) 17.2 H Plt Count (130 - 400 /CUMM) 205 MPV (7.4 - 10.4 FL) 7.4 Gran % (42.2 - 75.2 %) 73.8 Lymphocytes % (20.5 - 51.1 %) 8.2 L Monocytes % (1.7 - 9.3 %) 11.6 H Eosinophils % (0 - 5 %) 6.2 H Basophils % (0.0 - 2.0 %) 0.2 Absolute Granulocytes (1.4 - 6.5 /CUMM) 4.9 Absolute Lymphocytes (1.2 - 3.4 /CUMM) 0.5 L Absolute Monocytes (0.10 - 0.60 /CUMM) 0.8 H Absolute Eosinophils (0.0 - 0.7 /CUMM) 0.4 Absolute Basophils (0.0 - 0.2 /CUMM) 0
[2017-11-18 14:34] VITALS: BP 110/60
--- NOTE | 2017-11-18 16:58 | ECHOCARDIOGRAM REPORT ---
VONNIE BUSTAMANTE Age: 67 : 1950 Gender: M Exam Date: 11/18/2017 09:56 Exam Location: [address] [facility] Ht (in): 70 Wt (lb): 160 BSA: 1.89 BP: 120 / 50 Ordering Physician: Thelma Early MD Referring Physician: Thelma Early MD Technologist: Vijay Ching [facility] Room Number: 172-1 Indications: Chest Pain Rhythm: Sinus Technical Quality: Fair FINDINGS Left Ventricle Normal size left ventricle. Hypokinetic intraventricular septum. Hypokinetic apex. Moderately abnormal left ventricular ejection fraction estimated at 35%. Cannot exclude apical thrombus. Abnormal relaxation filling pattern of the left ventricle for age (stage 1 diastolic dysfunction). Right Ventricle Mild right ventricular dilatation. Right Atrium Mild right atrial dilatation. Left Atrium Moderate left atrial dilatation. Mitral Valve Moderate mitral annular calcification. Mildly thickened mitral valve leaflets. Mild mitral regurgitation. Aortic Valve Aortic valve not well visualized. Moderate to severe aortic stenosis. No aortic regurgitation. Tricuspid Valve Structurally normal tricuspid valve. Mild tricuspid regurgitation. Moderate pulmonary hypertension. Right ventricular systolic pressure estimated to be elevated at 48 mmHg. Pulmonic Valve Pulmonic valve not well visualized. No pulmonic regurgitation. Pericardium No pericardial effusion. Great Vessels Normal size aortic root. CONCLUSIONS Normal size left ventricle. Hypokinetic intraventricular septum. Hypokinetic apex. Cannot exclude apical thrombus. Moderately abnormal left ventricular ejection fraction estimated at 35%. Cannot exclude apical thrombus. Abnormal relaxation filling pattern of the left ventricle for age (stage 1 diastolic dysfunction). Mild right ventricular dilatation. Mild right atrial dilatation. Moderate left atrial dilatation. Mild mitral regurgitation. Moderate to severe aortic stenosis. Mild tricuspid regurgitation. Moderate pulmonary hypertension. Anam Delgado M.D. (Electronically Signed) Final Date: 18 November 2017 16:57 MEASUREMENTS (Male / Female) Normal Values 2D ECHO LV Diastolic Diameter PLAX 5.5 cm 4.2 - 5.9 / 3.9 - 5.3 cm LV Systolic Diameter PLAX 4.5 cm 2.1 - 4.0 cm LV Fractional Shortening PLAX 18.2 % 25 - 46 % LV Ejection Fraction 2D Teich 37.3 % IVS Diastolic Thickness 0.9 cm LVPW Diastolic Thickness 1.2 cm LV Relative Wall Thickness 0.4 LVOT Diameter 1.7 cm Aortic Root Diameter 2.0 cm LA Volume 96.0 cm 18 - 58 / 22 - 52 cm DOPPLER AV Peak Velocity 382.0 cm/s AV Peak Gradient 58.4 mmHg AV Mean Velocity 240.0 cm/s AV Mean Gradient 28.0 mmHg AV Velocity Time Integral 76.2 cm LVOT Peak Velocity 102.0 cm/s LVOT Peak Gradient 4.2 mmHg LVOT Mean Velocity 60.8 cm/s LVOT Mean Gradient 2.0 mmHg LVOT Velocity Time Integral 21.6 cm LVOT Stroke Volume 49.0 cm AV Area Cont Eq vti 0.6 cm AV Area Cont Eq pk 0.6 cm MV Peak Velocity 163.0 cm/s MV Peak Gradient 10.6 mmHg MV Mean Velocity 91.5 cm/s MV Mean Gradient 4.0 mmHg Mitral E Point Velocity 149.0 cm/s Mitral A Point Velocity 189.0 cm/s Mitral E to A Ratio 0.8 MV PHT Velocity 165.0 cm/s MV Deceleration Eddy 651.0 cm/s MV Pressure Half Time 76.0 ms MV Area PHT 2.9 cm MV Deceleration Time 116.0 ms MR Peak Velocity 554.0 cm/s MR Peak Gradient 122.8 mmHg TR Peak Velocity 306.0 cm/s TR Peak Gradient 37.5 mmHg Right Atrial Pressure 10.0 mmHg Pulmonary Artery Systolic Pressu 47.5 mmHg Right Ventricular Systolic Press 47.5 mmHg LV E' Lateral Velocity 13.7 cm/s Mitral E to LV E' Lateral Ratio 10.9 LV E' Septal Velocity 5.0 cm/s Mitral E to LV E' Septal Ratio 30.0
--- NOTE | 2017-11-18 18:26 | PN- Cardiology ---
Subjective Subjective: Mr. Almanzar was seen on the evening of 11/17/2017 and was feeling improved at that time. Objective Vital Signs and I&Os Vital Signs Date Time Temp Pulse Resp B/P B/P Pulse O2 O2 Flow FiO2 Mean Ox Delivery Rate 11/18 1434 97.5 70 20 110/60 93 Room Air 11/18 0643 99.9 55 16 126/54 93 Room Air 11/17 2236 98.0 44 20 132/70 92 Intake & Output 11/18 1600 11/18 0800 11/18 0000 11/17 1600 11/17 0800 11/17 0000 Intake Total 700 328 250 850 200 750 Output Total 1125 400 300 550 450 200 Balance -425 -72 -50 300 -250 550 Intake, IV 10 250 450 Intake, Oral 700 318 250 600 200 300 Number 0 0 Bowel Movements Output, Urine 1125 400 300 550 450 200 Patient 160 lb Weight Physical Exam: Well-developed, well-nourished elderly male in no acute distress with nasal oxygen in place. Vital signs: See above. HEENT: Normocephalic, atraumatic, EOMI, moist mucous membranes. Neck: No JVD, Lungs: Few bibasilar crackles. Heart: S1, S2 with grade 1-2/6 systolic murmur. No gallop or rub. Abdomen: Soft, nontender, positive bowel sounds. Extremities: Hyperpigmented, no edema. 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 BUN/creatinine and potassium are improving. Remains anemic and would transfuse to maintain hemoglobin at or above 8.0 g/dl. Awaiting his echocardiogram to reassess his left ventricular function. Continue telemetry? Yes
--- NOTE | 2017-11-18 18:27 | PN- Cardiology ---
Subjective Subjective: No complaints. Objective Vital Signs and I&Os Vital Signs Date Time Temp Pulse Resp B/P B/P Pulse O2 O2 Flow FiO2 Mean Ox Delivery Rate 11/18 1434 97.5 70 20 110/60 93 Room Air 11/18 0643 99.9 55 16 126/54 93 Room Air 11/17 2236 98.0 44 20 132/70 92 Intake & Output 11/18 1600 11/18 0800 11/18 0000 11/17 1600 11/17 0811/17 0000 Intake Total 700 328 250 850 200 750 Output Total 1125 400 300 550 450 200 Balance -425 -72 -50 300 -250 550 Intake, IV 10 250 450 Intake, Oral 700 318 250 600 200 300 Number 0 0 Bowel Movements Output, Urine 1125 400 300 550 450 200 Patient 160 lb Weight Physical Exam: Well-developed, well-nourished elderly male in no acute distress with nasal oxygen in place. Vital signs: See above. HEENT: Normocephalic, atraumatic, EOMI, moist mucous membranes. Neck: No JVD, Lungs: Few bibasilar crackles. Heart: S1, S2 with grade 1-2/6 systolic murmur. No gallop or rub. Abdomen: Soft, nontender, positive bowel sounds. Extremities: Hyperpigmented, no edema. Current Medications: Current Medications Sig/Salome Start time Last Medication Dose Route Stop Time Status Admin Acetaminophen 650 MG Q4P PRN 11/18 0900 AC PO Aspirin Buffered 81 MG QAM 11/14 1000 AC 11/18 PO 0812 Atorvastatin Calcium 80 MG QAM 11/14 1000 AC 11/18 PO 0812 Clopidogrel Bisulfate 75 MG DAILY 11/14 1000 AC 11/18 PO 0811 Cyanocobalamin 1,000 MCG DAILY 11/14 1000 AC 11/18 PO 0811 Docusate Sodium 100 MG DAILY 11/17 1615 AC 11/18 PO 0812 Ezetimibe 10 MG DAILY 11/14 1000 AC 11/18 PO 0811 Ferrous Sulfate 325 MG TID 11/14 1000 AC 11/18 PO 0811 Glycerin/Mineral Oil 1 TULIO TID PRN 11/14 1700 AC TOP Insulin Aspart 0 TIDAC 11/14 0800 DC 11/14 SC 1714 Levothyroxine Sodium 0.025 MG DAILY AC 11/14 0700 AC 11/18 PO 0626 Lorazepam 0.5 MG DAILY 11/14 1000 AC 11/18 PO 11/21 0959 0810 Melatonin 5 MG AT BEDTIME 11/17 2199 AC 11/17 PO 2206 Oxycodone HCl 10 MG Q6-PRN PRN 11/14 011 AC 11/18 PO 0811 Oxycodone/ 1 TAB Q6 PRN 11/14 0115 AC 11/17 Acetaminophen PO 1418 Polyethylene Glycol 17 GM DAILY 11/17 1615 AC 11/18 PO 08 Senna 187 MG AT BEDTIME 11/17 2199 AC 11/17 PO 2206 Sertraline HCl 50 MG DAILY 11/14 1000 AC 11/18 PO 0812 Results Last 48 Hrs of Labs/Mics: Laboratory Tests 11/18/17 1735: Urine Color YEL, Urine Clarity CLEAR, Urine pH 6.0, Ur Specific [place] 1.020, Urine Protein TRACE H, Urine Ketones NEG, Urine Nitrite NEG, Urine Bilirubin NEG, Urine Urobilinogen 0.2, Ur Leukocyte Esterase NEG, Ur Microscopic SEDIMENT EXAMINED, Urine RBC 1-3, Urine WBC RARE, Ur Epithelial Cells RARE, Urine Bacteria RARE H, Urine Hemoglobin SMALL H, Urine Glucose NEG 11/18/17 0938: Anion Gap 12, Estimated GFR 38 L, BUN/Creatinine Ratio 41.1 H, CBC w Diff NO MAN DIFF REQ, RBC 2.86 L, MCV 90.3, MCH 31.0, MCHC 34.3, RDW 17.2 H, MPV 7.4, Gran % 73.8, Lymphocytes % 8.2 L, Monocytes % 11.6 H, Eosinophils % 6.2 H, Basophils % 0.2, Absolute Granulocytes 4.9, Absolute Lymphocytes 0.5 L, Absolute Monocytes 0.8 H, Absolute Eosinophils 0.4, Absolute Basophils 0 11/17/17 0644: Anion Gap 12, Estimated GFR 30 L, BUN/Creatinine Ratio 35.5 H, CBC w Diff NO MAN DIFF REQ, RBC 2.88 L, MCV 91.3, MCH 30.8, MCHC 33.7, RDW 18.1 H, MPV 7.5, Gran % 70.2, Lymphocytes % 9.9 L, Monocytes % 14.0 H, Eosinophils % 5.4 H, Basophils % 0.5, Absolute Granulocytes 4.6, Absolute Lymphocytes 0.6 L, Absolute Monocytes 0.9 H, Absolute Eosinophils 0.4, Absolute Basophils 0 11/16/17 1900: Urine Color YEL, Urine Clarity CLEAR, Urine pH 6.0, Ur Specific [place] 1.025, Urine Protein TRACE H, Urine Ketones NEG, Urine Nitrite NEG, Urine Bilirubin NEG, Urine Urobilinogen 0.2, Ur Leukocyte Esterase TRACE H, Ur Microscopic SEDIMENT EXAMINED, Urine RBC RARE, Urine WBC 25-50 H, Ur Epithelial Cells FEW, Hyaline Casts FEW H, Urine Mucus RARE, Urine Hemoglobin NEG, Urine Glucose NEG Recent Imaging Studies: Echocardiogram 11/18/2017: Normal size left ventricle. Hypokinetic intraventricular septum. Hypokinetic apex. Cannot exclude apical thrombus. Moderately abnormal left ventricular ejection fraction estimated at 35%. Cannot exclude apical thrombus. Abnormal relaxation filling pattern of the left ventricle for age (stage 1 diastolic dysfunction). Mild right ventricular dilatation. Mild right atrial dilatation. Moderate left atrial dilatation. Mild mitral regurgitation. Moderate to severe aortic stenosis. Mild tricuspid regurgitation. Moderate pulmonary hypertension. 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 BUN/creatinine are improving. Echocardiographic findings are worrisome given the possibility of an apical thrombus. If no contraindication, would start on IV heparin and will have a limited echocardiogram with Definity contrast performed to further evaluate the apex and hopefully exclude an apical thrombus. We have the option of starting inotropic support at any time. Would repeat CXR. Continue telemetry? Yes
--- NOTE | 2017-11-18 19:04 | Event Note ---
Event Note Event Note: ECHO showed an apical thrombus. Guaic positive. Patient started on IV Heparin because benefits outweigh risks. Limited ECHO ordered for a.m for further investigation. Cardiology aware of ECHO findings.
[2017-11-18 22:15] VITALS: BP 150/70
[2017-11-19 02:08] LABS: PTT 52 SEC (25-37)
[2017-11-19 07:12] VITALS: BP 110/52
--- NOTE | 2017-11-19 09:14 | RADIOLOGY REPORT ---
EXAMINATION: XR PORTABLE CHEST CLINICAL INFORMATION: Confusion COMPARISON: 11/13/2017 TECHNIQUE: Portable frontal view of the chest was obtained. FINDINGS: Cardiomegaly, status post coronary artery bypass graft surgery, with intact sternotomy wires in place. No pulmonary edema or acute consolidation. Persistent small right pleural effusion with basilar atelectasis. There appears to be mild pleural-parenchymal opacity adjacent to an old fracture of the right posterolateral seventh rib. [place] screws are seen in the right humeral head and there is loss of subacromial space, indicative of chronic rotator cuff tear. IMPRESSION: 1. Cardiomegaly without acute pulmonary edema. 2. Small right pleural effusion and basilar atelectasis are similar in appearance compared to 11/13/2017.
--- NOTE | 2017-11-19 09:23 | PN- Housestaff ---
See Addendum Subjective Follow-up For: Confusion GRECIA on CKD Hyperkalemia Acute on chronic anemia Elevated troponins Subjective: Patient was seen and examined today. Patient reports no symptoms today. Patient denies any chest pain, palpitations, shortness of breath, nausea/ vomiting, constipation/diarrhea, bright red blood in stools, dysuria/hematuria. Review of Systems Constitutional: Denies: see HPI. Objective Last 24 Hrs of Vital Signs/I&O Vital Signs Date Time Temp Pulse Resp B/P B/P Pulse O2 O2 Flow FiO2 Mean Ox Delivery Rate 11/19 1400 97.0 66 20 112/58 93 Room Air 11/19 0712 98.1 53 18 110/52 95 Room Air 11/19 0000 93 Room Air 11/18 2215 98.9 84 18 150/70 94 Intake & Output 11/19 1600 11/19 0800 11/19 0000 Intake Total 793 240 318 Output Total 200 560 375 Balance 593 -320 -57 Intake, IV 233 78 Intake, Oral 560 240 240 Number 1 0 0 Bowel Movements Output, Urine 200 560 375 Physical Exam General Appearance: Patient is alert and oriented x3 however responds to questions slowly. HEENT: Atraumatic, PERRLA, EOMI, Mucous Membr. moist/pink Cardiovascular: Regular Rate, Normal S1, Normal S2 Lungs: Normal Air Movement, mild crackles heard bilaterally at lung bases Abdomen: Normal Bowel Sounds, Soft, No Tenderness Neurological: Normal Gait, Normal Speech, Strength at 5/5 X4 Ext, Normal Tone, Sensation Intact, Cranial Nerves 3-12 NL, Reflexes 2+ Extremities: No Clubbing, No Cyanosis, Normal Pulses, No Tenderness/Swelling, bilateral pitting edema Current Medications: Current Medications Sig/Salome Start time Last Medication Dose Route Stop Time Status Admin Acetaminophen 650 MG Q4P PRN 11/18 0900 AC PO Aspirin Buffered 81 MG QAM 11/14 1000 AC 11/19 PO 09 Atorvastatin Calcium 80 MG QAM 11/14 1000 AC 11/19 PO 09 Clopidogrel Bisulfate 75 MG DAILY 11/14 1000 AC 11/19 PO 09 Cyanocobalamin 1,000 MCG DAILY 11/14 1000 AC 11/19 PO 09 Docusate Sodium 100 MG DAILY 11/17 1615 AC 11/19 PO 09 Ezetimibe 10 MG DAILY 11/14 1000 AC 11/19 PO 0903 Ferrous Sulfate 325 MG TID 11/14 1000 AC 11/19 PO 1657 Furosemide 40 MG 7:30 AM, & 4:30 PM 11/19 1645 AC 11/19 PO 1657 Glycerin/Mineral Oil 1 TULIO TID PRN 11/14 1700 AC TOP Heparin Sodium 25,000 UNIT Q24H 11/18 1915 AC 11/19 (Porcine) IV 1550 Sodium Chloride 500 ML Levothyroxine Sodium 0.025 MG DAILY AC 11/14 0700 AC 11/19 PO 0631 Lorazepam 0.5 MG DAILY 11/14 1000 DC 11/18 PO 11/21 0959 0810 Melatonin 5 MG AT BEDTIME 11/17 2200 AC 11/18 PO 2050 Oxycodone HCl 10 MG Q6-PRN PRN 11/14 0115 DC 11/18 PO 0811 Oxycodone/ 1 TAB Q6 PRN 11/14 0115 AC 11/19 Acetaminophen PO 0631 Patient Medication 1 ED ONE ONE 11/19 1415 VT Teaching ED 11/19 1416 Polyethylene Glycol 17 GM DAILY 11/17 1615 AC 11/19 PO 0902 Senna 187 MG AT BEDTIME 11/17 220 AC 11/18 PO 205 Sertraline HCl 50 MG DAILY 11/14 1000 AC 11/19 PO 0903 Last 24 Hrs of Lab/Sadi Results Last 24 Hrs of Labs/Mics: Laboratory Tests 11/19/17 1040: Anion Gap 9, Estimated GFR 47 L, BUN/Creatinine Ratio 41.3 H, CBC w Diff NO MAN DIFF REQ, RBC 2.85 L, MCV 91.5, MCH 30.9, MCHC 33.8, RDW 17.6 H, MPV 7.3 L, Gran % 72.3, Lymphocytes % 10.8 L, Monocytes % 10.3 H, Eosinophils % 6.1 H , Basophils % 0.5, Absolute Granulocytes 4.8, Absolute Lymphocytes 0.7 L, Absolute Monocytes 0.7 H, Absolute Eosinophils 0.4, Absolute Basophils 0 11/19/17 0930: APTT 78 H 11/19/17 0100: APTT 52 H Assessment/Plan Assessment: 67-year-old gentleman with a significant past medical history for CAD status post CABG and stent placement 2015, aortic stenosis status post bovine AVR, heart failure with reduced ejection fraction, E, hypertension, hyperlipidemia, insulin-dependent diabetes, status post femoropopliteal bypass of left extremity is 17 by his PCP for evaluation of hyperkalemia. Patient today continued to appear confused however was alert and oriented 3. Patient's creatinine has improved today and is back to baseline. Patient's H&H is stable. Patient had a renal ultrasound which ruled out obstruction. Per nephrophology patient may have a component of cardiorenal and this may be patient's new baseline. Patient may require inotropic agents. Will defer to cardiology for further recommendations. Patient's echo day prior showed possible apical thrombus. Patient was started on IV heparin. Patient will have a repeat limited echo today to further evaluate suspected thrombus. Cardiology follow up pending for further recommendations. Patient's mental status changes appear related to benzo and narcotics. Will avoid sedatives at this time. Per , patient does not take more than 2 percocets daily at home. As patient appears to be accumulating fluid with increased lower extremity edema and bilateral crackles at lung bases will restart lasix today per nephrology recommendations. 1. Hyperkalemia - mildly elevated 2. GRECIA on CKD - improving 3. Anemia - improving 4. Demand Ischemia 5. ?Atypical thrombus 6. Confusion likely related to benzos and narcotics Impression * Hyperkalemia. Differentials include CKD induced hyperkalemia. Metabolic acidosis has a tendency of causing hyperkalemia. * Acute on chronic anemia. Normocytic. Review of [place] records indicated that I and studies were done before which were not very impressive for iron deficiency anemia. However it is noted the patient is on ferrous sulfate 3 times a day. His normocytic anemia is most likely secondary to kidney disease. Is no sign of acute blood loss and patient is denying any melena, malignancy is always a concern when a 67-year-old patient is presenting with anemia of unknown cause. He does report a normal recent colonoscopy however patient indicated that he was supposed to follow-up with the [facility]. * Elevated troponin. In the setting of a low h/h and the absence of any chest pain and ischemic EKG changes, presentation is more consistent with demand supply mismatch from the anemia rather than an ACS. His chronic kidney disease is contributory to the elevated troponin due to decrease washout. Plan Admit to telemetry for close cardiac monitoring Patient was fecal occult blood positive. IV heparin was started slowly with caution as patient has received 2 transfusions this admission however his H&H has remained stable over the past few days. Repeat echo today Avoid narcotics and benzos today Continue to monitor patient's mental status GRECIA resolved. Cr now at baseline. Resumed lasix today per nephrology. Cardiology onboard. Appreciate recommendations. Nephrology onboard. Appreciate recommendations. will guiac all stools Accu-Chek TIDAC/qHS a very low intense NovoLog sliding scale DVT prophylaxis: Alps, will hold off pharmacological agents in the setting of anemia in a patient with positive troponins and a history of CAD. CODE STATUS: Full code Problem List: 1. Anemia Pain Ratin Pain Location: shoulder Pain Goal: Pain 4 or less Pain Plan: percocet and tylenol abdiel discontinued Tomorrow's Labs & Rationales: bep - lasix cbc- anemia
--- NOTE | 2017-11-19 09:37 | PN- Nephrology ---
Assessment/Plan Assessment: 1. GRECIA: prerenal w cardiorenal syndrome in face of severe valvular heart dx w ongoing - improving 2. CKD: mod, stage 3, due to HTN, DM, & cardiorenal w mult episodes GRECIA; baseline Cr mid 1s 3. Hyperkalemia: mild Suggestion: OK to restart maintenace Lasix --> try 40 mg po bid No RAAS interruption Subjective Subjective: No SOB; no CP Denies uremic sx Echo findings noted Objective Vital Signs and I&Os Vital Signs Date Time Temp Pulse Resp B/P B/P Pulse O2 O2 Flow FiO2 Mean Ox Delivery Rate 11/19 0712 98.1 53 18 110/52 95 Room Air 11/19 0000 93 Room Air 11/18 2215 98.9 84 18 150/70 94 11/18 1434 97.5 70 20 110/60 93 Room Air Intake & Output 11/19 1600 11/19 0400 11/18 1600 11/18 0400 11/17 1600 11/17 0400 Intake Total 847 502 6584 250 1050 750 Output Total 670 062 3803 300 1000 200 Balance -320 -57 -497 -50 50 550 Intake, IV 78 10 250 450 Intake, Oral 046 767 6157 250 800 300 Number 0 0 0 0 Bowel Movements Output, Urine 196 408 2927 300 1000 200 Patient 160 lb Weight Physical Exam General Appearance: well developed/nourished, no apparent distress, alert Head: atraumatic, normal appearance Respiratory: no respiratory distress, quiet respiration, decreased breath sounds Cardiovascular: regular rate/rhythm, systolic murmur Abdomen: soft, non-tender Extremities: swelling Neurologic/Psychiatric: no motor/sensory deficits, awake, alert Current Medications: Current Medications Sig/Salome Start time Last Medication Dose Route Stop Time Status Admin Acetaminophen 650 MG Q4P PRN 11/18 0900 AC PO Aspirin Buffered 81 MG QAM 11/14 1000 AC 11/19 PO 0903 Atorvastatin Calcium 80 MG QAM 11/14 1000 AC 11/19 PO 0903 Clopidogrel Bisulfate 75 MG DAILY 11/14 1000 AC 11/19 PO 09 Cyanocobalamin 1,000 MCG DAILY 11/14 1000 AC 11/19 PO 0903 Docusate Sodium 100 MG DAILY 11/17 1615 AC 11/19 PO 0902 Ezetimibe 10 MG DAILY 11/14 1000 AC 11/19 PO 0903 Ferrous Sulfate 325 MG TID 11/14 1000 AC 11/19 PO 0903 Glycerin/Mineral Oil 1 TULIO TID PRN 11/14 1700 AC TOP Heparin Sodium 25,000 UNIT Q24H 11/18 1914 AC 11/18 (Porcine) IV 191 Sodium Chloride 500 ML Levothyroxine Sodium 0.025 MG DAILY AC 11/14 0700 AC 11/19 PO 0631 Lorazepam 0.5 MG DAILY 11/14 1000 AC 11/18 PO 11/21 0959 0810 Melatonin 5 MG AT BEDTIME 11/17 2199 AC 11/18 PO 2049 Oxycodone HCl 10 MG Q6-PRN PRN 11/14 011 AC 11/18 PO 0811 Oxycodone/ 1 TAB Q6 PRN 11/14 011 AC 11/19 Acetaminophen PO 06 Polyethylene Glycol 17 GM DAILY 11/17 1615 AC 11/19 PO 0902 Senna 187 MG AT BEDTIME 11/17 2199 AC 11/18 PO 2049 Sertraline HCl 50 MG DAILY 11/14 1000 AC 11/19 PO 0903 Results Pertinent Lab Results: Laboratory Tests 11/19 11/18 0100 1735 Coagulation APTT (25 - 37 SEC) 52 H Urines Urine Color (YEL,AMB,STR) YEL Urine Clarity (CLEAR) CLEAR Urine pH (5.0 - 8.0) 6.0 Ur Specific Electra (1.001 - 1.035) 1.020 Urine Protein (NEG,<30 MG/DL) TRACE H Urine Ketones (NEG) NEG Urine Nitrite (NEG) NEG Urine Bilirubin (NEG) NEG Urine Urobilinogen (0.1 - 1.0 EU/dl) 0.2 Ur Leukocyte Esterase (NEG) NEG Ur Microscopic SEDIMENT EXAMINED Urine RBC (0 - 5 /HPF) 1-3 Urine WBC (0 - 2 /HPF) RARE Ur Epithelial Cells (NONE,FEW) RARE Urine Bacteria (NEG/NONE) RARE H Urine Hemoglobin (NEG) SMALL H Urine Glucose (N MG/DL) NEG 11/18 11/17 0938 0644 Chemistry Sodium (137 - 145 mmol/L) 141 139 Potassium (3.5 - 5.1 mmol/L) 5.2 H 5.4 H Chloride (98 - 107 mmol/L) 108 H 105 Carbon Dioxide (22 - 30 mmol/L) 21 L 22 Anion Gap (5 - 16) 12 12 BUN (9 - 20 mg/dL) 74 H 78 H Creatinine (0.7 - 1.2 mg/dL) 1.8 H 2.2 H Estimated GFR (>60 ml/min) 38 L 30 L BUN/Creatinine Ratio (7 - 25 %) 41.1 H 35.5 H Hematology CBC w Diff NO MAN DIFF REQ NO MAN DIFF REQ WBC (4.8 - 10.8 /CUMM) 6.7 6.6 RBC (4.70 - 6.10 /CUMM) 2.86 L 2.88 L Hgb (14.0 - 18.0 G/DL) 8.9 L 8.9 L Hct (42 - 52 %) 25.9 L 26.3 L MCV (80.0 - 94.0 FL) 90.3 91.3 MCH (27.0 - 31.0 PG) 31.0 30.8 MCHC (33.0 - 37.0 G/DL) 34.3 33.7 RDW (11.5 - 14.5 %) 17.2 H 18.1 H Plt Count (130 - 400 /CUMM) 205 183 MPV (7.4 - 10.4 FL) 7.4 7.5 Gran % (42.2 - 75.2 %) 73.8 70.2 Lymphocytes % (20.5 - 51.1 %) 8.2 L 9.9 L Monocytes % (1.7 - 9.3 %) 11.6 H 14.0 H Eosinophils % (0 - 5 %) 6.2 H 5.4 H Basophils % (0.0 - 2.0 %) 0.2 0.5 Absolute Granulocytes (1.4 - 6.5 /CUMM) 4.9 4.6 Absolute Lymphocytes (1.2 - 3.4 /CUMM) 0.5 L 0.6 L Absolute Monocytes (0.10 - 0.60 /CUMM) 0.8 H 0.9 H Absolute Eosinophils (0.0 - 0.7 /CUMM) 0.4 0.4 Absolute Basophils (0.0 - 0.2 /CUMM) 0 0 02/12 1900 Urines Urine Color (YEL,AMB,STR) YEL Urine Clarity (CLEAR) CLEAR Urine pH (5.0 - 8.0) 6.0 Ur Specific Electra (1.001 - 1.035) 1.025 Urine Protein (NEG,<30 MG/DL) TRACE H Urine Ketones (NEG) NEG Urine Nitrite (NEG) NEG Urine Bilirubin (NEG) NEG Urine Urobilinogen (0.1 - 1.0 EU/dl) 0.2 Ur Leukocyte Esterase (NEG) TRACE H Ur Microscopic SEDIMENT EXAMINED Urine RBC (0 - 5 /HPF) RARE Urine WBC (0 - 2 /HPF) 25-50 H Ur Epithelial Cells (NONE,FEW) FEW Hyaline Casts (0/LPF) FEW H Urine Mucus (FEW,NONE) RARE Urine Hemoglobin (NEG) NEG Urine Glucose (N MG/DL) NEG Imaging/Other Studies: CXR: 1. Cardiomegaly without acute pulmonary edema. 2. Small right pleural effusion and basilar atelectasis are similar in appearance compared to 11/13/2017. Echo: Normal size left ventricle. Hypokinetic intraventricular septum. Hypokinetic apex. Cannot exclude apical thrombus. Moderately abnormal left ventricular ejection fraction estimated at 35%. Cannot exclude apical thrombus. Abnormal relaxation filling pattern of the left ventricle for age (stage 1 diastolic dysfunction). Mild right ventricular dilatation. Mild right atrial dilatation. Moderate left atrial dilatation. Mild mitral regurgitation. Moderate to severe aortic stenosis. Mild tricuspid regurgitation. Moderate pulmonary hypertensio
[2017-11-19 10:11] LABS: PTT 78 SEC (25-37)
[2017-11-19 12:10] LABS: ABSOLUTE BASOPHIL COUNT 0 /CUMM (0.0-0.2); ABSOLUTE EOSINOPHIL COUNT 0.4 /CUMM (0.0-0.7); ABSOLUTE GRANULOCYTE CT 4.8 /CUMM (1.4-6.5); ABSOLUTE LYMPH COUNT 0.7 /CUMM (1.2-3.4); ABSOLUTE MONOCYTE COUNT 0.7 /CUMM (0.10-0.60); BASOPHIL % 0.5 % (0.0-2.0); EOSINOPHIL % 6.1 % (0-5); GRANULOCYTE % 72.3 % (42.2-75.2); MEAN CORPUSCULAR HGB 30.9 PG (27.0-31.0); MEAN CORPUSCULAR HGB CONC 33.8 G/DL (33.0-37.0); MEAN CORPUSCULAR VOLUME 91.5 FL (80.0-94.0); MEAN PLATELET VOLUME 7.3 FL (7.4-10.4); PLATELET COUNT 193 /CUMM (130-400); RBC DISTRIBUTION WIDTH 17.6 % (11.5-14.5); RED BLOOD CELL CT 2.85 /CUMM (4.70-6.10); WHITE BLOOD CELL COUNT 6.7 /CUMM (4.8-10.8)
[2017-11-19 14:00] VITALS: BP 112/58
--- NOTE | 2017-11-19 17:54 | PN- Cardiology ---
Subjective Subjective: * This patient appears lethargic. No other complaints other than shoulder discomfort. * renal function is back to baseline. * Moderate anemia Objective Vital Signs and I&Os Vital Signs Date Time Temp Pulse Resp B/P B/P Pulse O2 O2 Flow FiO2 Mean Ox Delivery Rate 11/19 1400 97.0 66 20 112/58 93 Room Air 11/19 0712 98.1 53 18 110/52 95 Room Air 11/19 0000 93 Room Air 11/18 2215 98.9 84 18 150/70 94 Intake & Output 11/19 1600 11/19 0800 11/19 0000 11/18 1600 11/18 0800 11/18 0000 Intake Total 793 240 318 700 328 250 Output Total 200 965 786 9618 400 300 Balance 593 -320 -57 -425 -72 -50 Intake, IV 233 78 10 Intake, Oral 560 240 240 700 318 250 Number 1 0 0 0 Bowel Movements Output, Urine 200 302 482 5191 400 300 Patient 160 lb Weight Physical Exam: General: Wd/WN male in NAD; awake and lethargic but oriented x 3 Neck: no JVD, no carotid bruit Heart: RRR with 2/6 systolic murmur Lungs: clear bilaterally Abdomen: soft, NT, +ve bowel sounds Extremities: no edema Assessment/Plan Assessment/Plan * This patient is status post a bioprosthetic aortic valve replacement and CABG x 2. He has ruled in for a small NSTEMI by troponin. This elevated troponin may be artifactually elevated due to decreased renal clearance in the setting of acute renal insufficiency however I do think that it represents a type 2 MD from supply demand mismatch. This patient already has increased demand related to persistent anemia. It does not appear that a thorough anemia workup has been done. There was a plan for a pill cam as an outpatient that I do not think was done. In addition to he anemia, this patient almost certainly has severe sleep apnea but his sleep study was also not done. Regardless of the above, the patient was doing well until her started taking Percocet for his shoulder discomfort. This pattern of mental status changes followed by renal insufficiency has been a recurrent theme. I believe that this patient becomes profoundly hypoxic due to sleep apnea exacerbated by narcotic use. In the setting of this hypoxia his cardiac function decreased and he becomes pre-renal. My recommendation is to avoid all narcotics and sedating medications, pursue a complete anemia workup and pursue a sleep study along with therapy for the above. * The patient remains too lethargic today for discharge and all narcotics and sedating medications should be stopped. Stop Lorazepam. * The patient's echo was reviewed. He does have a decreased EF that is likely contributed to by repeated episodes of hypoxia although he has a known history of coronary artery disease for which he is now revascularized. He is also status post a bioprosthetic AVR. There is no evidence of intracardiac thrombus. We should reassess his EF by echo in a couple weeks after he has had a chance to recover. If his EF remains low we will consider adding digoxin but I am hesitant to add this drug now since it is cleared by the kidneys and may build up to toxic levels if he has recurrent episodes of renal failure. Continue telemetry? No
[2017-11-19 21:50] VITALS: BP 118/72
[2017-11-19 22:52] VITALS: BP 118/72
[2017-11-20 06:37] VITALS: BP 110/50
--- NOTE | 2017-11-20 07:50 | PN- Housestaff ---
See Addendum Subjective Follow-up For: Confusion GRECIA on CKD Hyperkalemia Acute on chronic anemia Elevated troponins Tele-Events Since Last Visit: Off Tele Subjective: Patient was seen and examined today. Patient was sitting in bed eating breakfast this morning. Patient is aware of his environment and is alert and oriented 3. Patient responded to all questions. Patient complains of right shoulder pain and rates it as 7 out of 10 in severity. Denies any chest pain, palpitations, dizziness, lightheadedness, nausea/vomiting, hematuria/dysuria, constipation/diarrhea. States he slept well, woke up a few times to use the restroom. No acute events overnight. Review of Systems Constitutional: Reports: see HPI. Objective Last 24 Hrs of Vital Signs/I&O Vital Signs Date Time Temp Pulse Resp B/P B/P Pulse O2 O2 Flow FiO2 Mean Ox Delivery Rate 11/20 0637 98.5 51 20 110/50 93 Room Air 11/20 0000 Room Air 11/19 2252 98.5 58 20 118/72 96 Room Air 11/19 2150 98.5 58 20 118/72 96 Room Air 11/19 1600 Room Air 11/19 1400 97.0 66 20 112/58 93 Room Air Intake & Output 11/20 1600 11/20 0800 11/20 0000 Intake Total 328 625 Output Total 400 250 Balance -72 375 Intake, IV 10 225 Intake, Oral 318 400 Output, Urine 400 250 Physical Exam General Appearance: Alert, Oriented X3, Cooperative, No Acute Distress Skin Temp/Moisture Exam: Warm/Dry HEENT: Atraumatic, PERRLA, EOMI, Mucous Membr. moist/pink Cardiovascular: Regular Rate, Normal S1, Normal S2 Lungs: Clear to Auscultation, Normal Air Movement Abdomen: Normal Bowel Sounds, Soft, No Tenderness Neurological: Normal Speech, Strength at 5/5 X4 Ext, Normal Tone, Sensation Intact, Cranial Nerves 3-12 NL, Reflexes 2+ Extremities: No Clubbing, No Cyanosis, Normal Pulses, No Tenderness/Swelling, bilateral lower extremity edema Current Medications: Current Medications Sig/Salome Start time Last Medication Dose Route Stop Time Status Admin Acetaminophen 650 MG Q4P PRN 11/18 0900 AC PO Aspirin Buffered 81 MG QAM 11/14 1000 AC 11/19 PO 0903 Atorvastatin Calcium 80 MG QAM 11/14 1000 AC 11/19 PO 0903 Clopidogrel Bisulfate 75 MG DAILY 11/14 1000 AC 11/19 PO 0903 Cyanocobalamin 1,000 MCG DAILY 11/14 1000 AC 11/19 PO 09 Docusate Sodium 100 MG DAILY 11/17 1615 AC 11/19 PO 0902 Ezetimibe 10 MG DAILY 11/14 1000 AC 11/19 PO 0903 Ferrous Sulfate 325 MG TID 11/14 1000 AC 11/19 PO 2128 Furosemide 40 MG 7:30 AM, & 4:30 PM 11/19 1645 AC 11/20 PO 0659 Glycerin/Mineral Oil 1 TULIO TID PRN 11/14 1700 AC TOP Heparin Sodium 25,000 UNIT Q24H 11/18 1915 DC 11/19 (Porcine) IV 1550 Sodium Chloride 500 ML Levothyroxine Sodium 0.025 MG DAILY AC 11/14 0700 AC 11/20 PO 0659 Lorazepam 0.5 MG DAILY 11/14 1000 DC 11/18 PO 11/21 0959 0810 Melatonin 5 MG AT BEDTIME 11/17 2200 AC 11/19 PO 2128 Oxycodone HCl 10 MG Q6-PRN PRN 11/14 011 DC 11/18 PO 0811 Oxycodone/ 1 TAB Q6 PRN 11/14 0115 AC 11/19 Acetaminophen PO 2128 Patient Medication 1 ED ONE ONE 11/19 1415 DE Teaching ED 11/19 1416 Polyethylene Glycol 17 GM DAILY 11/17 1615 AC 11/19 PO 0902 Senna 187 MG AT BEDTIME 11/17 2200 AC 11/19 PO 2128 Sertraline HCl 50 MG DAILY 11/14 1000 AC 11/19 PO 0903 Sitagliptin Phosphate 50 MG DAILY 11/20 0800 AC PO Last 24 Hrs of Lab/Sadi Results Last 24 Hrs of Labs/Mics: Laboratory Tests 11/20/17 0642: Anion Gap 11, Estimated GFR 47 L, BUN/Creatinine Ratio 36.7 H, CBC w Diff NO MAN DIFF REQ, RBC 2.85 L, MCV 91.7, MCH 30.7, MCHC 33.4, RDW 18.0 H, MPV 7.0 L, Gran % 68.4, Lymphocytes % 12.1 L, Monocytes % 11.6 H, Eosinophils % 7.6 H , Basophils % 0.3, Absolute Granulocytes 4.2, Absolute Lymphocytes 0.7 L, Absolute Monocytes 0.7 H, Absolute Eosinophils 0.5, Absolute Basophils 0 11/19/17 1040: Anion Gap 9, Estimated GFR 47 L, BUN/Creatinine Ratio 41.3 H, CBC w Diff NO MAN DIFF REQ, RBC 2.85 L, MCV 91.5, MCH 30.9, MCHC 33.8, RDW 17.6 H, MPV 7.3 L, Gran % 72.3, Lymphocytes % 10.8 L, Monocytes % 10.3 H, Eosinophils % 6.1 H , Basophils % 0.5, Absolute Granulocytes 4.8, Absolute Lymphocytes 0.7 L, Absolute Monocytes 0.7 H, Absolute Eosinophils 0.4, Absolute Basophils 0 11/19/17 0930: APTT 78 H Assessment/Plan Assessment: 67-year-old gentleman with a significant past medical history for CAD status post CABG and stent placement 2015, aortic stenosis status post bovine AVR, heart failure with reduced ejection fraction, E, hypertension, hyperlipidemia, insulin-dependent diabetes, status post femoropopliteal bypass of left extremity is 17 by his PCP for evaluation of hyperkalemia. Patient's confusion today resolved and he appears to be back at his baseline. Patient continues to have lower extremity edema and will benefit from continued diuresis. Creatinine appears stable at his baseline today. Patient was seen by his flight manager who recommended continuing Lasix 40 mg daily. Patient continues to be anemic however his H&H is stable and he is hemodynamically stable for discharge. Patient's anemia requires further workup outpatient with GI, hematology and nephrology. Patient will also likely has sleep apnea and would benefit from a sleep study. Pulmonology referral has been provided. Patient's mental status is likely related to benzos and narcotics. However patient requires Percocet twice a day and has been chronically on Ativan. His pain is being managed by the pain clinic. Aside from his regular dose he should not be receiving any more sedatives. 1. Hyperkalemia - mildly elevated 2. GRECIA on CKD - improving 3. Anemia - improving 4. Demand Ischemia 5. ?Atypical thrombus 6. Confusion likely related to benzos and narcotics Impression * Hyperkalemia. Differentials include CKD induced hyperkalemia. Metabolic acidosis has a tendency of causing hyperkalemia. * Acute on chronic anemia. Normocytic. Review of [place] records indicated that I and studies were done before which were not very impressive for iron deficiency anemia. However it is noted the patient is on ferrous sulfate 3 times a day. His normocytic anemia is most likely secondary to kidney disease. Is no sign of acute blood loss and patient is denying any melena, malignancy is always a concern when a 67-year-old patient is presenting with anemia of unknown cause. He does report a normal recent colonoscopy however patient indicated that he was supposed to follow-up with the [facility]. * Elevated troponin. In the setting of a low h/h and the absence of any chest pain and ischemic EKG changes, presentation is more consistent with demand supply mismatch from the anemia rather than an ACS. His chronic kidney disease is contributory to the elevated troponin due to decrease washout. Plan Admit to telemetry for close cardiac monitoring Patient was fecal occult blood positive. Heparin was discontinued yesterday this patient repeat echo was negative for thrombus. Avoid narcotics and benzos today Continue to monitor patient's mental status GRECIA resolved. Cr now at baseline. Resumed lasix today per nephrology. Cardiology onboard. Appreciate recommendations. Nephrology onboard. Appreciate recommendations. will guiac all stools Accu-Chek TIDAC/qHS a very low intense NovoLog sliding scale DVT prophylaxis: Alps, will hold off pharmacological agents in the setting of anemia in a patient with positive troponins and a history of CAD. CODE STATUS: Full code Dispo: Patient will be discharged home with his . Discussed in detail with him and his the patient requires close follow-up with cardiology, nephrology, GI, hematology, pulmonology and endocrinology for further evaluation and monitoring. Problem List: 1. CHF exacerbation 2. Symptomatic anemia 3. Acute on chronic renal insufficiency Pain Ratin Pain Location: right shoulder pain Pain Goal: Pain 7 or less Pain Plan: percocet - sparingly tylenol Tomorrow's Labs & Rationales: None discharged home today
[2017-11-20 07:58] LABS: ABSOLUTE BASOPHIL COUNT 0 /CUMM (0.0-0.2); ABSOLUTE EOSINOPHIL COUNT 0.5 /CUMM (0.0-0.7); ABSOLUTE GRANULOCYTE CT 4.2 /CUMM (1.4-6.5); ABSOLUTE LYMPH COUNT 0.7 /CUMM (1.2-3.4); ABSOLUTE MONOCYTE COUNT 0.7 /CUMM (0.10-0.60); BASOPHIL % 0.3 % (0.0-2.0); EOSINOPHIL % 7.6 % (0-5); GRANULOCYTE % 68.4 % (42.2-75.2); HEMATOCRIT 26.1 % (42-52); MEAN CORPUSCULAR HGB 30.7 PG (27.0-31.0); MEAN CORPUSCULAR HGB CONC 33.4 G/DL (33.0-37.0); MEAN CORPUSCULAR VOLUME 91.7 FL (80.0-94.0); PLATELET COUNT 197 /CUMM (130-400); RED BLOOD CELL CT 2.85 /CUMM (4.70-6.10); WHITE BLOOD CELL COUNT 6.1 /CUMM (4.8-10.8)
--- NOTE | 2017-11-20 10:21 | ECHOCARDIOGRAM REPORT ---
VONNIE BUSTAMANTE Age: 67 : 1950 Gender: M Exam Date: 11/19/2017 10:03 Exam Location: [facility] Ht (in): Wt (lb): BSA: BP: 110 / 52 Ordering Physician: Danika Randolph MD Referring Physician: Danika Randolph MD Technologist: Vijay Ching SHILA Room Number: 172-1 Indications: STRUCTURAL HEART DISEASE Rhythm: Technical Quality: good FINDINGS Left Ventricle Right Ventricle Right Atrium Left Atrium Mitral Valve Aortic Valve Tricuspid Valve Pulmonic Valve Pericardium Great Vessels CONCLUSIONS A limited study was performed with Definity contrast to evaluate this patient's EF and to assess for intracardiac thrombus. The patient appears to have apical akinesis with a severely decreased EF of 25-30%. No thrombus is identified. Roland English M.D. (Electronically Signed) Final Date: 20 November 2017 10:20 MEASUREMENTS (Male / Female) Normal Values
--- NOTE | 2017-11-20 10:47 | PN- Diabetes ---
Assessment/Plan Diabetes Assessment: 67-year-old male with a PMH significant for aortic stenosis status post bovine aortic valve replacement, CAD with [place] status post CABG and stent placement, HFrEF, CKD, HTN, HLD, diabetes s/p multiple toe amputations, PVD status post femoropopliteal bypass, chronic right shoulder pain who was sent in by his PCP for elevated potassium level. But his glucose level was found to be low. Now he is on Novolog coverage. He was on bicarb drip in D5W at 50 ml/hour which was discontinued. His FSGs were controlled and Novolog coverage was discontinued, However, lately his FSGs were 152, 209 and 206. Plan: start Januvia 50 mg daily; continue monitoring his FSGs. will follow. Subjective Subjective: He feels okay. Objective Last 24 Hrs of Vital Signs/I&O Vital Signs Date Time Temp Pulse Resp B/P B/P Pulse O2 O2 Flow FiO2 Mean Ox Delivery Rate 11/20 0637 98.5 51 20 110/50 93 Room Air 11/20 0000 Room Air 11/19 2252 98.5 58 20 118/72 96 Room Air 11/19 2150 98.5 58 20 118/72 96 Room Air 11/19 1600 Room Air 11/19 1400 97.0 66 20 112/58 93 Room Air Intake & Output 11/20 1600 11/20 0800 11/20 0000 Intake Total 328 625 Output Total 400 250 Balance -72 375 Intake, IV 10 225 Intake, Oral 318 400 Output, Urine 400 250 Findings Pertinent Lab/Sadi Results: Laboratory Tests 11/20 0642 Chemistry Sodium (137 - 145 mmol/L) 145 Potassium (3.5 - 5.1 mmol/L) 4.8 Chloride (98 - 107 mmol/L) 113 H Carbon Dioxide (22 - 30 mmol/L) 21 L Anion Gap (5 - 16) 11 BUN (9 - 20 mg/dL) 55 H Creatinine (0.7 - 1.2 mg/dL) 1.5 H Estimated GFR (>60 ml/min) 47 L BUN/Creatinine Ratio (7 - 25 %) 36.7 H Hematology CBC w Diff NO MAN DIFF REQ WBC (4.8 - 10.8 /CUMM) 6.1 RBC (4.70 - 6.10 /CUMM) 2.85 L Hgb (14.0 - 18.0 G/DL) 8.7 L Hct (42 - 52 %) 26.1 L MCV (80.0 - 94.0 FL) 91.7 MCH (27.0 - 31.0 PG) 30.7 MCHC (33.0 - 37.0 G/DL) 33.4 RDW (11.5 - 14.5 %) 18.0 H Plt Count (130 - 400 /CUMM) 197 MPV (7.4 - 10.4 FL) 7.0 L Gran % (42.2 - 75.2 %) 68.4 Lymphocytes % (20.5 - 51.1 %) 12.1 L Monocytes % (1.7 - 9.3 %) 11.6 H Eosinophils % (0 - 5 %) 7.6 H Basophils % (0.0 - 2.0 %) 0.3 Absolute Granulocytes (1.4 - 6.5 /CUMM) 4.2 Absolute Lymphocytes (1.2 - 3.4 /CUMM) 0.7 L Absolute Monocytes (0.10 - 0.60 /CUMM) 0.7 H Absolute Eosinophils (0.0 - 0.7 /CUMM) 0.5 Absolute Basophils (0.0 - 0.2 /CUMM) 0
[2017-11-20] MEDS ORDERED: JANUVIA50 M1 PO ×2 (10:52→19:51)
[2017-11-20 13:28] VITALS: BP 118/50
[2017-11-20] MEDS ORDERED: LASIX40 M1 PO ×3 (15:44→19:51)
--- NOTE | 2017-11-20 18:32 | PN- Cardiology ---
Subjective Subjective: * No complaints. * creatinine stable at 1.5 * persistent moderate anemia Objective Vital Signs and I&Os Vital Signs Date Time Temp Pulse Resp B/P B/P Pulse O2 O2 Flow FiO2 Mean Ox Delivery Rate 11/20 1328 98.7 60 20 118/50 93 11/20 0637 98.5 51 20 110/50 93 Room Air 11/20 0000 Room Air 11/19 2252 98.5 58 20 118/72 96 Room Air 11/19 2150 98.5 58 20 118/72 96 Room Air Intake & Output 11/20 1600 11/20 0800 11/20 0000 11/19 1600 11/19 0800 11/19 0000 Intake Total 560 328 625 793 240 318 Output Total 400 250 200 560 375 Balance 560 -72 375 593 -320 -57 Intake, IV 10 225 233 78 Intake, Oral 560 318 400 560 240 240 Number 1 0 0 Bowel Movements Output, Urine 400 250 200 560 375 Physical Exam: General: Wd/WN male in NAD; alert and oriented x 3 Neck: no JVD, no carotid bruit Heart: RRR with 2/6 systolic murmur Lungs: clear bilaterally Abdomen: soft, NT, +ve bowel sounds Extremities: no edema Assessment/Plan Assessment/Plan * This patient is status post a bioprosthetic aortic valve replacement and CABG x 2. He has ruled in for a small NSTEMI by troponin. This elevated troponin may have been artifactually elevated due to decreased renal clearance in the setting of acute renal insufficiency however I do think that it represents a type 2 IL from supply demand mismatch. This patient already has increased demand related to persistent anemia. It does not appear that a thorough anemia workup has been done but I do note an increased reticulocyte count this past September which argues against decreased production such as from renal insufficiency. There may be a mixed picture however since his RDW is also elevated. There was a plan for a pill cam as an outpatient that was not done. I have encouraged this study to be pursued. In addition to his anemia, this patient almost certainly has severe sleep apnea but his sleep study was also note done and I strongly recommend that this be set up as an outpatient. * Regardless of the above, the patient was doing well until her started taking Percocet for his shoulder discomfort. This pattern of mental status changes followed by renal insufficiency has been a recurrent theme. I believe that this patient becomes profoundly hypoxic due to sleep apnea exacerbated by narcotic use. In the setting of this hypoxia his cardiac function decreased and he becomes pre-renal. My recommendation is to avoid all narcotics and sedating medications. * The patient may be discharged from a cardiac standpoint on Lasix 40mg daily with follow up in the office in one week. All narcotics and sedating medications should be stopped. Stop Lorazepam. * The patient's echo was reviewed. He does have a decreased EF that is likely contributed to by repeated episodes of hypoxia although he has a known history of coronary artery disease for which he is now revascularized. He is also status post a bioprosthetic AVR. There is no evidence of intracardiac thrombus. We should reassess his EF by echo in a couple weeks after he has had a chance to recover. If his EF remains low we will consider adding digoxin but I am hesitant to add this drug now since it is cleared by the kidneys and may build up to toxic levels if he has recurrent episodes of renal failure. Continue telemetry? No
--- NOTE | 2017-11-20 21:26 | Discharge Summary ---
Visit Information Visit Dates Admission Date: 11/13/17 Discharge Date: 11/20/17 Hospital Course Course Attending Physician: Anoop Husain MD Primary Care Physician: Ruy Kendall MD Hospital Course: 67-year-old gentleman with a significant past medical history for CAD status post CABG and stent placement 2015, aortic stenosis status post bovine AVR, heart failure with reduced ejection fraction, E, hypertension, hyperlipidemia, insulin-dependent diabetes, status post femoropopliteal bypass of left extremity is 17 by his PCP for evaluation of hyperkalemia. On admission: Patient was admitted to the telemetry floor for management fo the followin. Hyperkalemia - mildly elevated 2. GRECIA on CKD - improving 3. Anemia - improving 4. Demand Ischemia 5. ?Atypical thrombus 6. Confusion likely related to benzos and narcotics Allergies: Coded Allergies: No Known Allergies (11/13/17) Pertinent Lab Results: SERVICE DATE: 11/13/17 EXAM TYPE: RAD - XRY-PORTABLE CHEST XRAY EXAMINATION: XR PORTABLE CHEST CLINICAL INFORMATION: Congestive heart failure. COMPARISON: None. TECHNIQUE: Portable frontal view of the chest was obtained. FINDINGS: Heart is enlarged. Status post sternotomy. Monitoring clips project off the chest. Low lung volumes. Mild bibasilar atelectasis. Possible small effusion. No overt pulmonary edema. No pneumothorax. IMPRESSION: Mild bibasilar atelectasis. Possible small right pleural effusion. Cardiomegaly. SERVICE DATE: 11/16/17- EXAM TYPE: US - US-RENAL/KIDNEY EXAMINATION: RENAL ULTRASOUND CLINICAL INFORMATION: Acute kidney injury. COMPARISON: 07/24/2017. TECHNIQUE: Real-time imaging of the kidneys and bladder. FINDINGS: RIGHT KIDNEY: There is no hydronephrosis. There is a 4 mm obstructive calculus within the interpole region. There is a 2.5 cm cyst within the interpole region and a 7 mm cyst within the lower pole. The right kidney measures 10.8 cm. LEFT KIDNEY: There is neither hydronephrosis nor nephrolithiasis. Within the upper pole, there is a 5.4 cm cyst. Within the interpole region, there are cysts measuring 12 mm and 9 mm The left kidney measures 12.6 cm. BLADDER: The urinary bladder is partially filled and unremarkable. There is no wall thickening. There is no pelvic free fluid. IMPRESSION: Punctate nonobstructive right renal calculus. No hydronephrosis. Bilateral renal cysts. SERVICE DATE: 11/18/17- EXAM TYPE: CARD - ECHOCARDIOGRAM FINDINGS Left Ventricle Normal size left ventricle. Hypokinetic intraventricular septum. Hypokinetic apex. Moderately abnormal left ventricular ejection fraction estimated at 35%. Cannot exclude apical thrombus. Abnormal relaxation filling pattern of the left ventricle for age (stage 1 diastolic dysfunction). Right Ventricle Mild right ventricular dilatation. Right Atrium Mild right atrial dilatation. Left Atrium Moderate left atrial dilatation. Mitral Valve Moderate mitral annular calcification. Mildly thickened mitral valve leaflets. Mild mitral regurgitation. Aortic Valve Aortic valve not well visualized. Moderate to severe aortic stenosis. No aortic regurgitation. Tricuspid Valve Structurally normal tricuspid valve. Mild tricuspid regurgitation. Moderate pulmonary hypertension. Right ventricular systolic pressure estimated to be elevated at 48 mmHg. Pulmonic Valve Pulmonic valve not well visualized. No pulmonic regurgitation. Pericardium No pericardial effusion. Great Vessels Normal size aortic root. CONCLUSIONS Normal size left ventricle. Hypokinetic intraventricular septum. Hypokinetic apex. Cannot exclude apical thrombus. Moderately abnormal left ventricular ejection fraction estimated at 35%. Cannot exclude apical thrombus. Abnormal relaxation filling pattern of the left ventricle for age (stage 1 diastolic dysfunction). Mild right ventricular dilatation. Mild right atrial dilatation. Moderate left atrial dilatation. Mild mitral regurgitation. Moderate to severe aortic stenosis. Mild tricuspid regurgitation. Moderate pulmonary hypertension. Anam Delgado M.D. (Electronically Signed) Final Date: 18 November 2017 16:57 MEASUREMENTS (Male / Female) Normal Values 2D ECHO LV Diastolic Diameter PLAX 5.5 cm 4.2 - 5.9 / 3.9 - 5.3 cm LV Systolic Diameter PLAX 4.5 cm 2.1 - 4.0 cm LV Fractional Shortening PLAX 18.2 % 25 - 46 % LV Ejection Fraction 2D Teich 37.3 % IVS Diastolic Thickness 0.9 cm LVPW Diastolic Thickness 1.2 cm LV Relative Wall Thickness 0.4 LVOT Diameter 1.7 cm Aortic Root Diameter 2.0 cm LA Volume 96.0 cm 18 - 58 / 22 - 52 cm DOPPLER AV Peak Velocity 382.0 cm/s AV Peak Gradient 58.4 mmHg AV Mean Velocity 240.0 cm/s AV Mean Gradient 28.0 mmHg AV Velocity Time Integral 76.2 cm LVOT Peak Velocity 102.0 cm/s LVOT Peak Gradient 4.2 mmHg LVOT Mean Velocity 60.8 cm/s LVOT Mean Gradient 2.0 mmHg LVOT Velocity Time Integral 21.6 cm LVOT Stroke Volume 49.0 cm AV Area Cont Eq vti 0.6 cm AV Area Cont Eq pk 0.6 cm MV Peak Velocity 163.0 cm/s MV Peak Gradient 10.6 mmHg MV Mean Velocity 91.5 cm/s MV Mean Gradient 4.0 mmHg Mitral E Point Velocity 149.0 cm/s Mitral A Point Velocity 189.0 cm/s Mitral E to A Ratio 0.8 MV PHT Velocity 165.0 cm/s MV Deceleration Brantley 651.0 cm/s MV Pressure Half Time 76.0 ms MV Area PHT 2.9 cm MV Deceleration Time 116.0 ms MR Peak Velocity 554.0 cm/s MR Peak Gradient 122.8 mmHg TR Peak Velocity 306.0 cm/s TR Peak Gradient 37.5 mmHg Right Atrial Pressure 10.0 mmHg Pulmonary Artery Systolic Pressu 47.5 mmHg Right Ventricular Systolic Press 47.5 mmHg LV E' Lateral Velocity 13.7 cm/s Mitral E to LV E' Lateral Ratio 10.9 LV E' Septal Velocity 5.0 cm/s Mitral E to LV E' Septal Ratio 30.0 DICTATED BY: Sandy BROWN,Anam Hennessy DATE/TIME DICTATED:11/18/171656 CHILD SUPPORT CASE OFFICER:JUHI DATE/TIME TRANSCRIBED:11/18/171656 SERVICE DATE: 11/19/17- EXAM TYPE: RAD - XRY-PORTABLE CHEST XRAY EXAMINATION: XR PORTABLE CHEST CLINICAL INFORMATION: Confusion COMPARISON: 11/13/2017 TECHNIQUE: Portable frontal view of the chest was obtained. FINDINGS: Cardiomegaly, status post coronary artery bypass graft surgery, with intact sternotomy wires in place. No pulmonary edema or acute consolidation. Persistent small right pleural effusion with basilar atelectasis. There appears to be mild pleural-parenchymal opacity adjacent to an old fracture of the right posterolateral seventh rib. [place] screws are seen in the right humeral head and there is loss of subacromial space, indicative of chronic rotator cuff tear. IMPRESSION: 1. Cardiomegaly without acute pulmonary edema. 2. Small right pleural effusion and basilar atelectasis are similar in appearance compared to 11/13/2017. SERVICE DATE: 11/19/17-06 EXAM TYPE: CARD - [id number] OR LIMITED CONCLUSIONS A limited study was performed with Definity contrast to evaluate this patient's EF and to assess for intracardiac thrombus. The patient appears to have apical akinesis with a severely decreased EF of 25-30%. No thrombus is identified. Roland English M.D. (Electronically Signed) Final Date: 20 November 2017 10:20 MEASUREMENTS (Male / Female) Normal Values DICTATED BY: Tameka BROWN PHD,Roland Hennessy DATE/TIME DICTATED:11/20/171019 CHILD SUPPORT CASE OFFICER:JUHI DATE/TIME TRANSCRIBED:11/20/171019 Discharge Instructions Medications at Discharge Discharge Medications: Stop taking the following medications: Insulin Glargine,Hum.rec.anlog (Lantus Solostar) 100 UNIT/ML (3 ML) INSULN.PEN Inject into fatty tissue DAILY Insulin Aspart (Novolog) 100 UNIT/ML VIAL Inject into fatty tissue BEFORE MEALS AND AT BEDTIME Continue taking these medications: Lorazepam (Ativan) 0.5 MG TABLET 1 Tablet ORAL DAILY Comments: Last Taken: 11/18/17 Time: 8:00 AM Sertraline HCl (Sertraline HCl) 50 MG TABLET 50 Milligram ORAL DAILY Qty = 90 Comments: Last Taken: 11/20/17 Time: 9:00 AM Ezetimibe (Zetia) 10 MG TABLET 10 Milligram ORAL DAILY Qty = 30 Comments: Last Taken: 11/20/17 Time: 9:00 AM Ergocalciferol (Vitamin D2) (Vitamin D2) 50,000 UNIT CAPSULE 1 Tablet ORAL EVERY THURSDAY Qty = 11 Comments: NOT GIVEN IN HOSPITAL Ferrous Sulfate (Ferrous Sulfate) 325 MG (65 MG IRON) TABLET 1 Tablet ORAL THREE TIMES DAILY Comments: Last Taken: 11/20/17 Time: 9:00 AM Ascorbate Calcium (Vitamin C) 500 MG TABLET 500 Milligram ORAL Every Morning Comments: NOT GIVEN IN HOSPITAL Aspirin (Ecotrin*) 81 MG TABLET.DR 1 Tablet ORAL Every Morning Comments: Last Taken: 11/20/17 Time: 9:00 AM Clopidogrel Bisulfate (Plavix) 75 MG TABLET 1 Tablet ORAL DAILY Comments: Last Taken: 11/20/17 Time: 9:00 AM Cyanocobalamin (Vitamin B-12) 1,000 MCG TABLET 1 Tablet ORAL DAILY Comments: Last Taken: 11/20/17 Time: 9:00 AM Levothyroxine Sodium (Synthroid) 25 MCG TABLET 0.025 Milligram ORAL DAILY BEFORE BREAKFAST Qty = 30 Instructions: . Comments: Last Taken: 11/20/17 Time: 7:00 AM Budesonide/Formoterol Fumarate (Symbicort 160-4.5 Mcg Inhaler) 160 MCG-4.5 MCG/ ACTUATION HFA.AER.AD 2 Puff Inhale through mouth TWICE DAILY Comments: NOT GIVEN IN HOSPITAL Pantoprazole Sodium (Pantoprazole Sodium) 40 MG TABLET.DR 1 Tablet ORAL TWICE DAILY Comments: NOT GIVEN IN HOSPITAL Polyethylene Glycol 3350 (Miralax) 17 GRAM POWD.PACK 1 Packet ORAL DAILY Instructions: dissolve in water Comments: Last Taken: 11/19/17 Time: 9:00 AM Lisinopril (Lisinopril) 2.5 MG TABLET 1 Tablet ORAL DAILY Comments: NOT GIVEN IN HOSPITAL Fish Oil/Dha/Epa (Fish Oil 1,200 MG Fish Oil) 1,200 MG-144 MG-216 MG CAPSULE 1 Capsule ORAL DAILY Comments: NOT GIVEN IN HOSPITAL Atorvastatin Calcium (Atorvastatin Calcium) 80 MG TABLET 1 Tablet ORAL Every Morning Qty = 30 Comments: Last Taken: 11/20/17 Time: 9:00 AM Oxycodone HCl/Acetaminophen (Oxycodone-Acetaminophen 5-325) 5 MG-325 MG TABLET 1 Tablet ORAL 2 x Daily as needed as needed for PAIN Qty = 60 Comments: Last Taken: 11/19/17 Time: 9:30 PM Albuterol Sulfate (Ventolin Hfa) 90 MCG HFA.AER.AD 1-2 Puff Inhale through mouth As Directed as needed for COPD Qty = 36 Comments: NOT GIVEN IN HOSPITAL Start taking the following new medications: Sitagliptin Phosphate (Januvia) 50 MG TABLET 1 Tablet ORAL DAILY Qty = 30 No Refills Instructions: Please take as prescribed and follow up with your doctor. Comments: Last Taken: 11/20/17 Time: 10:30 AM The following medications have been changed: Old: Furosemide (Lasix) 40 MG TABLET 1 Tablet ORAL DAILY Qty = 60 New: Furosemide (Lasix) 40 MG TABLET 1 Tablet ORAL DAILY Qty = 60 Instructions: Please take as prescribed and follow up with your doctor. Comments: Last Taken: 11/20/17 Time: 7:00 AM
== END 2017-11-20 20:23 | disposition home health service (06) | DRG 682 ==
LOC: ERH 16:32 → 1NO 20:06 → ERHI 20:06 → ENRESERV 20:47 → ENTRNSPT 21:16 → EDTRNSPTSTS 21:27 → EDTRNSPT 21:27 → 1NO 21:40 → CMPTRNSPT 21:42 → 1NO 11-14 12:20
PROVIDERS: Dermatology; Internal Medicine; Physician Assistant Medical; Radiology Vascular & Interventional Radiology; Student in an Organized Health Care Education/Training Program
DX: N17.9 Acute kidney failure, unspecified (principal); I21.A1 Myocardial infarction type 2; E11.22 Type 2 diabetes mellitus with diabetic chronic kidney disease; E87.2 Acidosis; I13.0 Hypertensive heart and chronic kidney disease with heart failure and stage 1 through stage 4 chronic kidney disease, or unspecified chronic kidney disease; I50.22 Chronic systolic (congestive) heart failure; E87.5 Hyperkalemia; I27.20 Pulmonary hypertension, unspecified; I25.10 Atherosclerotic heart disease of native coronary artery without angina pectoris; R41.0 Disorientation, unspecified; T42.4X5A Adverse effect of benzodiazepines, initial encounter; I25.2 Old myocardial infarction; R32 Unspecified urinary incontinence; N18.3 Chronic kidney disease, stage 3 (moderate); E78.5 Hyperlipidemia, unspecified; Z79.4 Long term (current) use of insulin; Z95.1 Presence of aortocoronary bypass graft; Z87.891 Personal history of nicotine dependence; Z95.3 Presence of xenogenic heart valve
CPT/HCPCS: 1NP; 36415; 36592; 71045; 76775; 81001; 82436; 86920; 87086; 93005; 93010; 93306; 93308; 93321; 96361; 96374; 96375; J0610; J1644; J1815; J3490; J7040; J7042; J7060; P9016; Q9957

== ENCOUNTER 2017-12-28 09:41 | Inpatient (IN) | payer OTHER, MEDICARE ==
[~2017-12-28] VITALS: Ht 177.8 cm; Wt 76.8 kg
[~2017-12-28 09:41] MED LIST changes: +JANUVIA50 M1 PO; +NOVOLOG100 UNIT/2 SC; +VENTOLIN HFA18 GM INH
--- NOTE | 2017-12-28 11:02 | ED UPPER/LOWER EXTREMITY COMPL ---
History of Present Illness General Chief Complaint: Lower Extremity Problems Stated Complaint: SRIRAM LEG PAIN Source: patient, family, old records Exam Limitations: SOMNULENT Vital Signs & Intake/Output Vital Signs & Intake/Output Vital Signs Date Time Temp Pulse Resp B/P B/P Pulse O2 O2 Flow FiO2 Mean Ox Delivery Rate 12/29 0643 98.5 78 20 120/80 97 Room Air 12/28 2245 98.3 69 20 132/0 95 Room Air 12/28 2131 Room Air Room Air 12/28 1854 Room Air 12/28 1622 98.2 73 20 118/70 96 Room Air 12/28 1426 77 18 111/48 100 Room Air 12/28 1228 92 18 143/52 12/28 1032 96 Room Air 12/28 0949 98.1 75 20 125/69 96 Room Air ED Intake and Output 12/29 0000 12/28 1200 Intake Total 740 Output Total 400 Balance 340 Intake, Blood 350 Product Intake, IV 150 Intake, Oral 240 Output, Urine 400 Patient 175 lb 170 lb Weight Weight Reported by Patient Measurement Method Allergies Coded Allergies: No Known Allergies (11/13/17) Reconcile Medications Albuterol Sulfate (Ventolin Hfa) 90 MCG HFA.AER.AD 1-2 PUF INH AD PRN COPD ( Reported) Ascorbate Calcium (Vitamin C) 500 MG TABLET 500 MG PO QAM SUPPLEMENT ( Reported) Aspirin (Ecotrin*) 81 MG TABLET.DR 1 TAB PO QAM HEART/BLOOD (Reported) Atorvastatin Calcium 80 MG TABLET 1 TAB PO QAM CHOLESTEROL (Reported) Budesonide/Formoterol Fumarate (Symbicort 160-4.5 Mcg Inhaler) 160 MCG-4.5 MCG/ ACTUATION HFA.AER.AD 2 PUF INH BID BREATHING PROBLEMS (Reported) Clopidogrel Bisulfate (Plavix) 75 MG TABLET 1 TAB PO DAILY BLOOD THINNER ( Reported) Cyanocobalamin (Vitamin B-12) 1,000 MCG TABLET 1 TAB PO DAILY SUPPLEMENT ( Reported) Ergocalciferol (Vitamin D2) (Vitamin D2) 50,000 UNIT CAPSULE 1 TAB PO QSUN SUPPLEMENT (Reported) Ezetimibe (Zetia) 10 MG TABLET 10 MG PO DAILY CHOLESTEROL (Reported) Ferrous Sulfate 325 MG (65 MG IRON) TABLET 2 TAB PO BID SUPPLEMENT (Reported) Fish Oil/Dha/Epa (Fish Oil 1,200 MG Fish Oil) 1,200 MG-144 MG-216 MG CAPSULE 1 CAP PO DAILY SUPPLEMENT (Reported) Furosemide (Lasix) 40 MG TABLET 1 TAB PO DAILY CHF Please take as prescribed and follow up with your doctor. Insulin Glargine,Hum.rec.anlog (Lantus Solostar) 100 UNIT/ML (3 ML) INSULN.PEN 4 UNIT SC QPM DIABETES (Reported) Levothyroxine Sodium (Synthroid) 25 MCG TABLET 0.025 MG PO DAILY AC HYPOTHYROIDISM . Lisinopril 2.5 MG TABLET 1 TAB PO DAILY HEART (Reported) Lorazepam (Ativan) 0.5 MG TABLET 1 TAB PO DAILY ANXIETY (Reported) Oxycodone HCl/Acetaminophen (Oxycodone-Acetaminophen 5-325) 5 MG-325 MG TABLET 1 TAB PO BIDP PRN PAIN s/p shoulder surgery (Reported) Sertraline HCl 50 MG TABLET 50 MG PO DAILY DEPRESSION (Reported) Sitagliptin Phosphate (Januvia) 50 MG TABLET 1 TAB PO DAILY DIABETES Please take as prescribed and follow up with your doctor. Triage Note: PT BIBA FROM HOME WITH C/O B/L LEG WEAKNESS AND UNABLE TO AMBULATE THIS MORNING. PT STATES LEGS ARE PAINFUL TOO. PT HAS HX OF AMPUTATED TOES Triage Nurses Notes Reviewed? yes HPI: Patient presents for evaluation of bilateral leg pain and swelling beginning about 2 weeks ago. The patient presents to the emergency department because the leg swelling and pain worsened today to the point where he couldn't ambulate. Patient is describing a constant severe sharp bilateral leg pain with no prior episodes this severe. According to patient's he has been confused and tired appearing over the past 2 days. In addition, the patient has had blood in the stool for an Unclear period of time. Patient is suffers some shortness of breath this morning. Patient denies chest pain, abdominal pain, nausea, vomiting, diarrhea or recent falling. Outside of the blood in the stool patient 's bowel movements have been normal. Past History Travel History Traveled to [place] past 21 day No Medical History Any Pertinent Medical History? 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 amputation of 9 toes [facility]CA ESWL [address] Ledesma toe amputations bilaterally, aortic valve, LE stents Psychosocial History Who do you live with Spouse Services at Home Nursing What is your primary language Sami Tobacco Use: Quit >30 days ago ETOH Use: denies use, alcoholic (previously) Illicit Drug Use: denies illicit drug use Family History Family History, If Any: FATHER (CAD). , Age 40-50; Cause: CAD (coronary artery disease). MOTHER (Pancreatic cancer). BROTHER (HTN). Hx Contributory? No Review of Systems Review of Systems Constitutional: Reports: no symptoms. EENTM: Reports: no symptoms. Respiratory: Reports: see HPI. Cardiovascular: Reports: no symptoms. Gastrointestinal/Abdominal: Reports: no symptoms. Genitourinary: Reports: no symptoms. Musculoskeletal: Reports: no symptoms. Skin: Reports: see HPI. Neurological/Psychological: Reports: no symptoms. Hematologic/Endocrine: Reports: no symptoms. Immunological: Reports: no symptoms. All Other Systems: Reviewed and Negative Physical Exam Physical Exam General Appearance: SEE BELOW Head: see below Comments: Gen.: Well-nourished, well-developed, no acute respiratory distress. Head: Normocephalic, atraumatic. Eyes: Normal inspection bilaterally Ears: Normal inspection bilaterally Nose: Normal inspection Throat/mouth : Moist mucosa , poor dentition Neck: Supple, full range of motion, no goiter Heart: Regular rate and rhythm Lungs: Quiet respirations, breath sounds equal and normal bilaterally Abdomen: Soft nontender nondistended positive bowel sounds Back: Normal range of motion Extremities: 2+ bilateral pitting edema of the lower extremities with chronic skin changes Neurologic: Cranial nerves grossly intact, speech is clear Skin: warm and dry Psychiatric: Calm, cooperative, no apparent delusions or hallucinations Progress Differential Diagnosis: cellulitis, CHF, DVT, peripheral edema, vascular disease , renal insufficiency/failure, electrolyte abnormality of volume overload, dietary indiscretion Plan of Care: Orders Procedure Date/time Status CBC WITHOUT DIFFERENTIAL 12/29 0600 Active BASIC ELECTROLYTES PLUS BUN&CR 12/29 0600 Complete Consistent Carbohydrate 3 12/28 D Active BLOOD PRODUCT PICKUP 12/28 2321 Active RT: Evaluation 12/28 2130 Active CBC WITHOUT DIFFERENTIAL 12/29 1999 Complete BLOOD PRODUCT PICKUP 12/28 1834 Active LEUKOCYTE POOR (PACKED CELLS) 12/28 1824 Active Weight 12/28 1747 Active Vital Signs 12/28 1747 Complete Teach/Educate 12/28 1746 Active Pain Treatment and Response 12/28 174 Active Nutritional Intake, Monitor 12/28 174 Active Isolation 12/28 174 Active Intake & Output 12/28 174 Complete Patient Care Conference 12/28 1746 Active Activity/Ambulation 12/28 174 Active TROPONIN LEVEL 12/28 1700 Complete BASIC ELECTROLYTES PLUS BUN&CR 12/28 1700 Complete TYPE & SCREEN (NOT X-MATCH) 12/28 1657 Complete PT Evaluate & Treat 12/28 1532 Active Pathway - chart 12/28 1532 Active House Staff 12/28 1532 Active Patient Data 12/28 1532 Active EKG 12/28 1532 Active Code Status 12/28 1532 Active FingerStick- Glucose 12/28 1530 Active Add-on Test (ER Only) 12/28 1505 Active URINE DRUGS OF ABUSE 12/28 1505 Active Patient Data 12/28 1353 Active Misc Message 12/28 1337 Active ED Holding Orders 12/28 1337 Active Admit to inpatient 12/28 1337 Active Vital Signs 12/28 1337 Active Code Status 12/28 1337 Complete POTASSIUM-PLASMA 12/28 1243 Complete PROTHROMBIN TIME 12/28 1100 Complete Telemetry/Chair Car Attendant 12/28 1054 Active TROPONIN LEVEL 12/28 1054 Complete MAGNESIUM 12/28 1054 Complete D-DIMER 12/28 1054 Complete CBC WITHOUT DIFFERENTIAL 12/28 1054 Complete B-TYPE NATRIURETIC PEP (BNP) 12/28 1054 Complete BASIC METABOLIC PANEL 12/28 1054 Complete EKG 12/28 1054 Active Intake & Output 12/28 1032 Active TRC EVALUATION (GEN) 12/28 UNK Complete THERAPIST ORDERS 12/28 UNK Complete VTE Mechanical Prophylaxis 12/28 UNK Active Vital Signs 12/28 UNK Complete Telemetry/Chair Car Attendant 12/28 UNK Complete Nursing Misc 12/28 UNK Active Intake & Output 12/28 UNK Complete FingerStick- Glucose 12/28 UNK Complete Current Medications Sig/Salome Start time Last Medication Dose Stop Time Status Admin Aspirin Buffered 81 MG QAM 12/29 1000 AC (Ecotrin) Atorvastatin Calcium 80 MG QAM 12/29 1000 AC (Lipitor) Clopidogrel Bisulfate 75 MG DAILY 12/29 1000 AC (Plavix) Ezetimibe 10 MG DAILY 12/29 1000 AC (Zetia) Sertraline HCl 50 MG DAILY 12/29 1000 AC (Zoloft) Levothyroxine Sodium 0.025 MG DAILY AC 12/29 0700 AC 12/29 (Synthroid) 0554 Budesonide/ 2 PUF BID 12/28 2200 AC 12/28 Formoterol Fumarate 2115 (Symbicort) Heparin Sodium 5,000 UNIT Q8 12/28 2200 AC 12/29 (Porcine) 0554 Insulin Aspart 0 TIDAC 12/28 1700 AC (NovoLOG) Albuterol Sulfate 2 PUF Q4P PRN 12/28 1600 AC (Ventolin) Ferrous Sulfate 325 MG TID 12/28 1600 AC 12/28 (Feosol) 2115 Acetaminophen 650 MG Q6P PRN 12/28 1515 AC (Tylenol) Acetaminophen 1,000 MG Q6P PRN 12/28 1515 AC 12/29 (Ofirmev) 0343 Dextrose 50 GM ONCE ONE 12/28 1500 CAN (Dextrose 50%) 12/28 1501 Dextrose 1 SYR ONE ONE 12/28 1415 CAN (Dextrose 25% Inj. 12/28 1416 Pediatric) Laboratory Tests 12/29/17 0625: Anion Gap 15, Estimated GFR 36 L, BUN/Creatinine Ratio 47.9 H, CBC w Diff Pending, WBC Pending, RBC Pending, Hgb Pending, Hct Pending, MCV Pending, MCH Pending, MCHC Pending, RDW Pending, Plt Count Pending, MPV Pending 12/28/17 2100: CBC w Diff Cancelled, WBC Cancelled, RBC Cancelled, Hgb Cancelled, Hct Cancelled , MCV Cancelled, MCH Cancelled, MCHC Cancelled, RDW Cancelled, Plt Count Cancelled, MPV Cancelled 12/28/17 1718: Anion Gap 12, Estimated GFR 33 L, BUN/Creatinine Ratio 45.5 H, Troponin I 0.09 , CBC w Diff NO MAN DIFF REQ, RBC 2.18 L, MCV 93.5, MCH 30.7, MCHC 32.8 L, RDW 19.9 H, MPV 7.4, Gran % 87.6 H, Lymphocytes % 4.8 L, Monocytes % 7.1, Eosinophils % 0.2, Basophils % 0.3, Absolute Granulocytes 6.6 H, Absolute Lymphocytes 0.4 L, Absolute Monocytes 0.5, Absolute Eosinophils 0, Absolute Basophils 0 12/28/17 1255: Plasma Potassium 6.2 *H 12/28/17 1100: Anion Gap 13, Estimated GFR 30 L, BUN/Creatinine Ratio 42.3 H, Glucose 127 H, Calcium 9.4, Magnesium 2.2, Troponin I 0.03, [place] Pept 86492 H, PT 14.4 H, INR 1.32 H, D-Dimer High Sensitivty 1182 H, CBC w Diff NO MAN DIFF REQ, RBC 2.35 L, MCV 93.2, MCH 30.1, MCHC 32.3 L, RDW 19.5 H, MPV 7.8, Gran % 88.7 H, Lymphocytes % 3.0 L, Monocytes % 7.9, Eosinophils % 0.3, Basophils % 0.1, Absolute Granulocytes 8.2 H, Absolute Lymphocytes 0.3 L, Absolute Monocytes 0.7 H, Absolute Eosinophils 0, Absolute Basophils 0 Diagnostic Imaging: Discussed w/RAD: Radiology Read. CXR Impression: PATIENT: VONNIE BUSTAMANTE PRESENT AGE: 67 PATIENT ACCOUNT NO: [id number] : 50 LOCATION: [facility] ORDERING PHYSICIAN: Brock Downey MD SERVICE DATE: 12/28/17 EXAM TYPE: RAD - XRY-CHEST XRAY, TWO VIEWS EXAMINATION: XR CHEST CLINICAL INFORMATION: CHF, dyspnea COMPARISON: Prior chest x-rays, the most recent on 11/19/2017 TECHNIQUE: 2 views of the chest were obtained. FINDINGS: Hypoventilatory exam. There is mild to moderate enlargement of the cardiac silhouette, fairly similar to prior chest x- rays. Prior CABG. The median sternotomy wires are intact. There is mild pulmonary venous congestion. Opacity at the right lung base with obscuration of right lateral costophrenic angle and right diaphragmatic border noted. The finding could represent right-sided pleural effusion with adjacent atelectasis and fairly similar to prior exams. There is a 3 cm rounded opacity in the right paracardiac region. This also could represent atelectatic change, however possibility of superimposed pneumonia is not excluded. No pneumothorax. Anterior endplate osteophytosis of multiple thoracic spine noted. IMPRESSION: Mild to moderate cardiomegaly and pulmonary venous congestion. No overt pulmonary edema. Right-sided pleural effusion and adjacent pulmonary opacity. The opacity could represent atelectasis however possibility of superimposed pneumonia is not excluded. Clinical correlation is suggested. DICTATED BY: Greg Negro MD DATE/TIME DICTATED:12/28/171199 5TH GRADE TEACHER:JUHI DATE/TIME TRANSCRIBED:12/28/171199 CONFIDENTIAL, DO NOT COPY WITHOUT APPROPRIATE AUTHORIZATION. <Electronically signed in Other Vendor System> SIGNED BY: Greg Negro MD 12/28/17 1208 Initial ED EKG: NSR, rate (74), RBBB, NO PEAKED T WAVES Prior EKG: unchanged Comments: 12/28/2017 12:29:07 PM I have updated Vonnie and on test results. Treatment for hyperkalemia ordered. I have held on transfusion given the borderline hemoglobin the patient has currently. In addition this could potentially volume overload him and given his low ejection fraction, potentially exacerbate congestive heart failure as well. I feel this patient requires hospitalization and the list of his current medical issues should be addressed while in the hospital. Rectal examination reveals brown heme positive stool. Departure Departure Disposition: STILL A PATIENT Condition: Stable Clinical Impression Primary Impression: Hyperkalemia Secondary Impressions: GRECIA (acute kidney injury) Anemia Qualifiers: Anemia type: unspecified type Qualified Code: D64.9 - Anemia, unspecified GI bleed Qualifiers: GI bleed type/associated pathology: unspecified gastrointestinal hemorrhage type Qualified Code: K92.2 - Gastrointestinal hemorrhage, unspecified Peripheral edema Referrals: Ruy Kendall MD (PCP/Family) Departure Forms: Customer Survey General Discharge Information Admission Note Spoke With: Anoop Husain MD Documentation of Exam: Documentation of any treatments & extenuating circumstances including Concerns Regarding Discharge (functional status, medication knowledge or non-compliance, living conditions, etc.) that warrant an admission rather than observation: Patient has an acute on chronic kidney injury with hyperkalemia, placing him at high risk of dysrhythmia hypotension and possible mortality. In addition the patient has an anemia which is complicating his presentation. He has been experiencing shortness of breath and this may very well be due to the decreased oxygen carrying capacity and the blood (symptomatic anemia). The patient provides a history of intermittent bloody stools that this is currently being evaluated by his GI specialist. An ongoing occult GI bleed could make his anemia and associated symptoms worse. The patient will require telemetry monitoring because of the possibility of hyperkalemia dysrhythmia. He'll also require ongoing monitoring of his anemia and his renal functions and potassium level. Nephrology cardiology and hematology consultation should be considered. If patient's hemoglobin drops below 7 then transfusion should be considered. A transfusion in this patient will be complicated given his low ejection fraction and propensity for congestive heart failure. The patient has a extremely complicated medical history including history of congestive heart failure due to low ejection fraction and chronic renal insufficiency. I feel his treatment will be prolonged and potentially complicated. I feel he'll require a multiple day hospitalization. Critical Care Note Critical Care Note Critical Care Time: 30-74 min
[2017-12-28 11:34] LABS: ABSOLUTE BASOPHIL COUNT 0 /CUMM (0.0-0.2); ABSOLUTE EOSINOPHIL COUNT 0 /CUMM (0.0-0.7); ABSOLUTE LYMPH COUNT 0.3 /CUMM (1.2-3.4); ABSOLUTE MONOCYTE COUNT 0.7 /CUMM (0.10-0.60); MEAN CORPUSCULAR VOLUME 93.2 FL (80.0-94.0); MEAN PLATELET VOLUME 7.8 FL (7.4-10.4)
[2017-12-28] MEDS ORDERED: LANTUS SOL100 UNIT/1 SC (11:34)
[2017-12-28 11:40] LABS: ABSOLUTE GRANULOCYTE CT 8.2 /CUMM (1.4-6.5); BASOPHIL % 0.1 % (0.0-2.0); EOSINOPHIL % 0.3 % (0-5); HEMATOCRIT 21.9 % (42-52); MEAN CORPUSCULAR HGB 30.1 PG (27.0-31.0); MEAN CORPUSCULAR HGB CONC 32.3 G/DL (33.0-37.0); PLATELET COUNT 167 /CUMM (130-400); RBC DISTRIBUTION WIDTH 19.5 % (11.5-14.5); RED BLOOD CELL CT 2.35 /CUMM (4.70-6.10); WHITE BLOOD CELL COUNT 9.3 /CUMM (4.8-10.8)
[2017-12-28 11:52] LABS: GRANULOCYTE % 88.7 % (42.2-75.2)
--- NOTE | 2017-12-28 12:08 | RADIOLOGY REPORT ---
EXAMINATION: XR CHEST CLINICAL INFORMATION: CHF, dyspnea COMPARISON: Prior chest x-rays, the most recent on 11/19/2017 TECHNIQUE: 2 views of the chest were obtained. FINDINGS: Hypoventilatory exam. There is mild to moderate enlargement of the cardiac silhouette, fairly similar to prior chest x-rays. Prior CABG. The median sternotomy wires are intact. There is mild pulmonary venous congestion. Opacity at the right lung base with obscuration of right lateral costophrenic angle and right diaphragmatic border noted. The finding could represent right-sided pleural effusion with adjacent atelectasis and fairly similar to prior exams. There is a 3 cm rounded opacity in the right paracardiac region. This also could represent atelectatic change, however possibility of superimposed pneumonia is not excluded. No pneumothorax. Anterior endplate osteophytosis of multiple thoracic spine noted. IMPRESSION: Mild to moderate cardiomegaly and pulmonary venous congestion. No overt pulmonary edema. Right-sided pleural effusion and adjacent pulmonary opacity. The opacity could represent atelectasis however possibility of superimposed pneumonia is not excluded. Clinical correlation is suggested.
--- NOTE | 2017-12-28 14:04 | History & Physical ---
Frances Gregory 12/28/17 1350: General Information and HPI MD Statement: I have seen and personally examined VONNIE ALMANZAR and documented this H&P. The patient is a 67 year old M who presented with a patient stated chief complaint of [Hyperkalemia]. Source of Information: patient, old records Exam Limitations: no limitations History of Present Illness: Mr. Almanzar is a 67-year-old male with PMH of aortic stenosis, CAD s/p CABG (2016), CHF (last Echo 11/20/2017), hypertension, hyperlipidemia, NSTEMI, PVD, pending PillCam for GI Bleed, urinary incontinence, CKD (baseline Cr 1.4-2.4), Chronic osteomyelities w/ toes amputation, and Anemia w/ hx of transfusion ( baseline Hgb 8.5-9.5). During our clinical interaction, patient appeared to be alert and oriented to himself, however not to time/place/setting. Patient's was contacted by phone, and she stated that patient was complaining of flank pain 2 weeks on and off, and this morning patient was supposed to see Dr. Powell for cocaine procedure, however he had excruciating pain of the bilateral lower extremities, does the called 911 and patient was sent to the ER. The stated that patient was feeling very cold/tired, for the last 2 days, which was the same symptoms every time patient became anemic. Patient had been transfused unknown units of PRBC about 2 weeks ago [facility] by Dr. Fletcher and the blood work from last Thursday prior to this admission by Dr. Kendall was around 7.4. Regarding patient's medication, patient was seen by an BUGGY LADLE TENDER of nephrology office from Dr. Daniel, and the recalled only Lasix was changed from every Thursday to a daily dose. Allergies/Medications Allergies: Coded Allergies: No Known Allergies (11/13/17) Past History Travel History Traveled to [place] past 21 day No Medical History Neurological: GAIT ABDNORMALITY WEAKNESS EENT: NONE Cardiovascular: aortic stenosis, CAD, CHF, hypertension, hyperlipidemia, NSTEMI, PVD Respiratory: NONE Gastrointestinal: appt for pill cam cancelled for today due to ED visit gi bleed Hepatic: NONE Renal: urinary incontinence, CKD Musculoskeletal: CHRONIC OSTEOMYLITIS LFT FOOT- TOES AMP X5 RGHT FOOT- TOES AMP X4 Psychiatric: depression Endocrine: diabetes Blood Disorders: anemia with occ tranfusions Cancer(s): NONE BUSINESS STRATEGY MANAGER/Reproductive: NONE Other Medical Hx: aneursym in left groin History of MRSA: No History of VRE: No History of CDIFF: No Influenza Vaccine: 08/09/17 Tetanus Vaccine: 04/20/17 Surgical History Surgical History: CABG, hernia repair-umbilical, right shoulddr sx aVR bypass of the left (fem/pop) leg? amputation of 9 toes PTCA ESWL by [address] Ledesma toe amputations bilaterally aortic valve, LE stents Past Family/Social History Family History Relations & Conditions if any FATHER (CAD). , Age 40-50; Cause: CAD (coronary artery disease). MOTHER (Pancreatic cancer). BROTHER (HTN). Psychosocial History Who Do You Live With? spouse Services at Home: Nursing Primary Language: Kiswahili ETOH Use: denies use, alcoholic (previously) Illicit Drug Use: denies illicit drug use Functional Ability ADLs Independent: dressing, eating, toileting, bathing. Ambulation: independent IADLs Independent: shopping, housework, finances, food prep, telephone, transportation , medication admin. Review of Systems Review of Systems Constitutional: Reports: see HPI. Exam & Diagnostic Data Last 24 Hrs of Vital Signs/I&O Vital Signs Date Time Temp Pulse Resp B/P B/P Pulse O2 O2 Flow FiO2 Mean Ox Delivery Rate 12/28 1228 92 18 143/52 12/28 1032 96 Room Air 12/28 0949 98.1 75 20 125/69 96 Room Air Intake & Output 12/28 1600 12/28 0800 12/28 0000 Intake Total Output Total Balance Patient 77.111 kg Weight Weight Reported by Patient Measurement Method Physical Exam General Appearance Alert, Cooperative, No Acute Distress, Oriented to month, not to year/setting Skin No Breakdown, No Significant Lesion Skin Temp/Moisture Exam: Warm/Dry Sepsis Skin Exam (color): Normal for Ethnicity HEENT Atraumatic, PERRLA, EOMI Neck Supple, No JVD Cardiovascular Regular Rate, Normal S1, Normal S2 Lungs Clear to Auscultation, Normal Air Movement Abdomen Normal Bowel Sounds, Soft, No Tenderness, No Hepatospenomegaly Neurological Normal Speech, Strength at 5/5 X4 Ext Extremities BLE toes amputations except right pinky toes left Chronic skin changes from previous PMH. Last 24 Hrs of Labs/Sadi: Laboratory Tests 12/28/17 1255: Plasma Potassium 6.2 *H 12/28/17 1100: Anion Gap 13, Estimated GFR 30 L, BUN/Creatinine Ratio 42.3 H, Glucose 127 H, Calcium 9.4, Magnesium 2.2, Troponin I 0.03, Fwn-T-Lieeohuvedj Pept 17548 H, D- Dimer High Sensitivty 1182 H, CBC w Diff NO MAN DIFF REQ, RBC 2.35 L, MCV 93.2 , MCH 30.1, MCHC 32.3 L, RDW 19.5 H, MPV 7.8, Gran % 88.7 H, Lymphocytes % 3.0 L, Monocytes % 7.9, Eosinophils % 0.3, Basophils % 0.1, Absolute Granulocytes 8.2 H, Absolute Lymphocytes 0.3 L, Absolute Monocytes 0.7 H, Absolute Eosinophils 0, Absolute Basophils 0 Assessment/Plan Assessment: Mr. Almanzar is a 67-year-old male with PMH of aortic stenosis, CAD s/p CABG (2016), CHF (last Echo 11/20/2017), hypertension, hyperlipidemia, NSTEMI, PVD, pending PillCam for GI Bleed, urinary incontinence, CKD (baseline Cr 1.4-2.4), Chronic osteomyelities w/ toes amputation, and Anemia w/ hx of transfusion ( baseline Hgb 8.5-9.5). During our clinical interaction, patient appeared to be alert and oriented to himself, however not to time/place/setting. Patient's was contacted by phone, and she stated that patient was complaining of flank pain 2 weeks on and off, and this morning patient was supposed to see Dr. Powell for cocaine procedure, however he had excruciating pain of the bilateral lower extremities, does the called 911 and patient was sent to the ER. The stated that patient was feeling very cold/tired, for the last 2 days, which was the same symptoms every time patient became anemic. On admission, Vitals: Stable on room air 96% saturation -CBC: WBC 9.3, H/H7 0.1/29.9, PLT 167, d-dimer 1182 -BMP: NA 141, K 6.6 -> 6.2, CL 111, CO2 17, CR 2.2, glucose 127, troponin 0.03, proBNP 68563 -CXR: Mild to moderate cardiomegaly and pulmonary venous congestion. No overt pulmonary edema. Right-sided pleural effusion and adjacent pulmonary opacity. -EKG: NSR with RBBB, appeared to be more peaked T wave compared to previous EKG in 11/2017 -Interventions in ER: Kayexalate 1 Assessment: Mr. Almanzar is a 67-year-old male with PMH of aortic stenosis, CAD s/ p CABG (08/2017), CHF (last Echo 11/20/2017), hypertension, hyperlipidemia, NSTEMI, PVD, pending PillCam for GI Bleed, urinary incontinence, CKD (baseline Cr 1.4-2.4), Chronic osteomyelities w/ toes amputation, and Anemia w/ hx of transfusion (baseline Hgb 8.5-9.5). Patient was admitted this time with similar complaints on last admission back in 11/14/2017, however he was restarted on lisinopril 2.5 mg daily, which could be contributed to patient's recurrent hyperkalemia. Patient's EKG in the ER also showed more peaked T waves compared with the previous back in November. In addition patient's chronic kidney disease, however was unclear baseline of creatinine, may also contribute to hyperkalemia. Patient's potassium on presentation was 6.6, and decreased to 6.2 after 1 dose of Kayexalate, however without any bowel movement. According to the , patient was not at his mental baseline. The stated that patient was taken Percocet by himself at home for his pain at shoulder status post shoulder injury repair, however denied any previous episodes overdose of opioids. Patient also appeared to be pale pale and anemic, with hemoglobin 7.1 in the ER. Problem list #Hyperkalemia her current likely contributed by chronic renal insufficiency and use a lisinopril. It is not clear whether patient is compliant with his low potassium diet #History of CAD status post CABG #History of CHF #History hypertension #History of aortic stenosis #history chronic osteomyelities status post bilateral transmetatarsal amputation bilaterally #Chronic anemia w/ hx of multiple transfusion #Altered mental status likely secondary to toxic metabolic encephalopathy or narcotic use Plan - Admit to telemetry DVT prophylaxis None Dialysis Diet Full Code As Ranked By This Provider Problem List: 1. Hyperkalemia Core Measures/Misc (06/21) Acute Coronary Syndrome ACS Diagnosis: No Congestive Heart Failure Congestive Heart Failure Diagnosis Yes Last Known EF % 30 No KAYLEIGH/ARB d/t Medical Contraindication Cerebrovascular Accident CVA/TIA Diagnosis: No VTE (View Protocol) VTE Risk Factors Age>40 No Mechanical VTE Prophylaxis d/t N/A MechProphylax Ordered No VTE Pharm Prophylaxis d/t NA PharmProphylax ordered Sepsis (View protocol) Sepsis Present: No Sandy BROWN,[place] 12/28/17 7171: General Information and HPI Allergies/Medications Home Med list Albuterol Sulfate (Ventolin Hfa) 90 MCG HFA.AER.AD 1-2 PUF INH AD PRN COPD ( Reported) Ascorbate Calcium (Vitamin C) 500 MG TABLET 500 MG PO QAM SUPPLEMENT ( Reported) Aspirin (Ecotrin*) 81 MG TABLET.DR 1 TAB PO QAM HEART/BLOOD (Reported) Atorvastatin Calcium 80 MG TABLET 1 TAB PO QAM CHOLESTEROL (Reported) Budesonide/Formoterol Fumarate (Symbicort 160-4.5 Mcg Inhaler) 160 MCG-4.5 MCG/ ACTUATION HFA.AER.AD 2 PUF INH BID BREATHING PROBLEMS (Reported) Clopidogrel Bisulfate (Plavix) 75 MG TABLET 1 TAB PO DAILY BLOOD THINNER ( Reported) Cyanocobalamin (Vitamin B-12) 1,000 MCG TABLET 1 TAB PO DAILY SUPPLEMENT ( Reported) Ergocalciferol (Vitamin D2) (Vitamin D2) 50,000 UNIT CAPSULE 1 TAB PO QSUN SUPPLEMENT (Reported) Ezetimibe (Zetia) 10 MG TABLET 10 MG PO DAILY CHOLESTEROL (Reported) Ferrous Sulfate 325 MG (65 MG IRON) TABLET 2 TAB PO BID SUPPLEMENT (Reported) Fish Oil/Dha/Epa (Fish Oil 1,200 MG Fish Oil) 1,200 MG-144 MG-216 MG CAPSULE 1 CAP PO DAILY SUPPLEMENT (Reported) Furosemide (Lasix) 40 MG TABLET 1 TAB PO DAILY CHF Please take as prescribed and follow up with your doctor. Insulin Glargine,Hum.rec.anlog (Lantus Solostar) 100 UNIT/ML (3 ML) INSULN.PEN 4 UNIT SC QPM DIABETES (Reported) Levothyroxine Sodium (Synthroid) 25 MCG TABLET 0.025 MG PO DAILY AC HYPOTHYROIDISM . Lisinopril 2.5 MG TABLET 1 TAB PO DAILY HEART (Reported) Lorazepam (Ativan) 0.5 MG TABLET 1 TAB PO DAILY ANXIETY (Reported) Oxycodone HCl/Acetaminophen (Oxycodone-Acetaminophen 5-325) 5 MG-325 MG TABLET 1 TAB PO BIDP PRN PAIN s/p shoulder surgery (Reported) Sertraline HCl 50 MG TABLET 50 MG PO DAILY DEPRESSION (Reported) Sitagliptin Phosphate (Januvia) 50 MG TABLET 1 TAB PO DAILY DIABETES Please take as prescribed and follow up with your doctor. Attending MD Review Statement Attending Statement Attending MD Statement: examined this patient, discuss w/resident/PA/MACHINE I TRIMMER, agreed w/resident/PA/MACHINE I TRIMMER, reviewed EMR data (avail), reviewed images Attending Assessment/Plan: Patient seen and examined. Plan of care discussed with the medical team and the patient. Available lab work and radiology test reports were reviewed. Patient is just physical for more details. In summary patient is 67-year-old male with the chronic kidney disease who was last admitted in November 14 through November 20 for hyperkalemia. At that time during hospital course patient was taken off lisinopril but apparently upon discharge he was put back on lisinopril. Patient came to ER due to leg pain. In ER, he was found to have abnormal lab work showing high potassium. Patient states that he follows low potassium diet. Patient is vague forgetful and appears moderately confused and has trouble recalling recent events. His vitals are stable and is afebrile. His exam showsthat he is partially disoriented and somewhat confused and forgetful. Bilateral transverse metatarsal imitations are noted. Patient is pale and appears anemic. He has a clear chest and abdomen soft nontender. Labs show hematocrit of 21.9 and potassium level of 6.6 with creatinine of 2.2. chest x-ray shows Mild to moderate cardiomegaly and pulmonary venous congestion. No overt pulmonary edema. Assessment And problem list * Hyperkalemia her current likely contributed by chronic renal insufficiency and use a lisinopril. It is not clear whether patient is compliant with his low potassium diet * History of CAD status post CABG * History of CHF * His hypertension * History your stenosis * history chronic Stimmel at this of feet status post transmetatarsal amputation bilaterally * Chronic anemia * ? confusion and delirium likely secondary to toxic metabolic encephalopathy or narcotic use Plan * Admission to telemetry * Kayexalate oral; recheck potassium this evening; give dextrose 50 g with insulin regular and units IV. * Hold lisinopril * Hold Lasix for now due to concern for dehydration given elevated BUN * Obtain nephrology consult * Hold narcotics Hussein BROWN,[facility] 12/28/17 1606: Resident Review Statement Resident Statement: examined this patient, discussed with news internship, agreed with news internship, discussed with family, reviewed images Other Findings: Patient is 67 year old male with PMH of aortic stenosis, CAD s/p CABG (08/2017), CHF (last Echo 11/20/2017) EF 35%, hypertension, hyperlipidemia, NSTEMI, PVD, guaiac-positive stool with negative colonoscopy and EGD September 2017, pending PillCam, urinary incontinence, CKD (baseline Cr 1.6), Chronic osteomyelities s/p bilateral toes amputation, and anemia of chronic disease presented to ED with CC of bilateral lower extermities weakness and pain. Patient was recently discharged 11/20/2017 was treated for hyperkalemia, elevated troponins and GRECIA. Patient was confused while interviewing him. Most of the history was obtained from his . She started that patient has a scheduled appointment with Dr. Powell for PillCam study today however he complained of severe pain in his legs and decided to come to ED for evaluation. Patient is independent at baseline and able to manage his medication. Based on records from last admission, patient has history of repeated confusion on pain medication in the setting of acute renal failure. denied any history of pain medication overdose. He takes percocet 1 tab BID. noticed theat he is "off" today. She denied any active BRBPR, blood in urine. Problem list #Excruciating lower extremity pain and swelling #Hyperkalemia #Anemia of chronic disease #Acute kidney injury on chronic kidney disease #Altered mental status #Diabetes mellitus with history of low blood sugar Plan -Admit to telemetry floor -Vitals every shift -Ins and outs strict -Hold Lasix and lisinopril for hyperkalemia and acute kidney injury -Patient was given Kayexalate and 80 however did have any bowel movement yet. Will administer regular insulin 10 units and dextrose -Repeat BMP at 5 PM -Repeat troponin and EKG, initial set negative -We will administer 500 cc of normal saline running at 50 cc/h for acute kidney injury and reassess BUN/creatinine afterwards -Avoid nephrotoxic agents -Hold opioids for altered mental status, patient was reevaluated later and seems improving, no need for Narcan -Patient is guaiac positive in ED, will hold off blood transfusion for now. -Type and crossmatch -We will repeat his CBC later today and transfuse if less than 7.1, goal is 8 -Continue list of home medication including aspirin and Plavix as patient was worked up and discharged recently to continue those 2 given recent history of stent placement -Manage pain with acetaminophen for mild pain p.o. -EcoCheck and low-dose sliding scale, patient has history of low blood glucose level, recent hemoglobin A1c December 2017 is 6.4 -DVT prophylaxis heparin subcutaneous -Code full -Diet diabetic diet with sodium and potassium restriction
--- NOTE | 2017-12-28 14:57 | Admission Certification ---
Admission Certification Certification Statement - As attending physician, I certify that at the time of - admission, based on clinical presentation, severity of - symptoms, need for further diagnostic testing and - therapeutic interventions, and risk of adverse outcomes - without in-hospital treatment, in my clinical assessment, - this patient requires an acute hospital stay for a minimum - of two nights or longer. I have also considered psychsocial - factors such as support system, advanced age, financial - issues, cognitive issues, and failed out-patient treatments, - past re-admission history, safety of patient, and lack of - compliance as applicable. Specific rationale supporting this admission is: Severe hyperkalemia and chronic kidney disease
[2017-12-28 16:37] LABS: PT 14.4 SEC (9.4-12.5)
[2017-12-28 17:38] LABS: ABSOLUTE BASOPHIL COUNT 0 /CUMM (0.0-0.2); ABSOLUTE EOSINOPHIL COUNT 0 /CUMM (0.0-0.7); ABSOLUTE GRANULOCYTE CT 6.6 /CUMM (1.4-6.5); ABSOLUTE LYMPH COUNT 0.4 /CUMM (1.2-3.4); ABSOLUTE MONOCYTE COUNT 0.5 /CUMM (0.10-0.60); BASOPHIL % 0.3 % (0.0-2.0); EOSINOPHIL % 0.2 % (0-5); HEMATOCRIT 20.4 % (42-52); MEAN CORPUSCULAR HGB 30.7 PG (27.0-31.0); MEAN CORPUSCULAR HGB CONC 32.8 G/DL (33.0-37.0); MEAN CORPUSCULAR VOLUME 93.5 FL (80.0-94.0); MEAN PLATELET VOLUME 7.4 FL (7.4-10.4); PLATELET COUNT 155 /CUMM (130-400); RBC DISTRIBUTION WIDTH 19.9 % (11.5-14.5); RED BLOOD CELL CT 2.18 /CUMM (4.70-6.10); WHITE BLOOD CELL COUNT 7.6 /CUMM (4.8-10.8)
[2017-12-28 17:44] LABS: GRANULOCYTE % 87.6 % (42.2-75.2)
[2017-12-28 22:45] VITALS: BP 132/0
[2017-12-29 06:43] VITALS: BP 120/80
--- NOTE | 2017-12-29 07:46 | PN- Housestaff ---
Subjective Follow-up For: #Hyperkalemia her current likely contributed by chronic renal insufficiency and use a lisinopril. It is not clear whether patient is compliant with his low potassium diet #History of CAD status post CABG #History of CHF #History hypertension #History of aortic stenosis #history chronic osteomyelities status post bilateral transmetatarsal amputation bilaterally #Chronic anemia w/ hx of multiple transfusion #Altered mental status likely secondary to toxic metabolic encephalopathy or narcotic use Tele-Events Since Last Visit: SB/NSR 50s - 70s Subjective: No overnight event. Patient was sitting at bedside when I entered. No specific complaint. He knew that he was at [facility] and recognized me from yesterday. Had no bowel movemenet yet. Review of Systems Constitutional: Reports: see HPI. Objective Last 24 Hrs of Vital Signs/I&O Vital Signs Date Time Temp Pulse Resp B/P B/P Pulse O2 O2 Flow FiO2 Mean Ox Delivery Rate 12/29 0643 98.5 78 20 120/80 97 Room Air 12/28 2245 98.3 69 20 132/0 95 Room Air 12/28 2131 Room Air Room Air 12/28 1854 Room Air 12/28 1622 98.2 73 20 118/70 96 Room Air 12/28 1426 77 18 111/48 100 Room Air 12/28 1228 92 18 143/52 Intake & Output 12/29 1600 12/29 0800 12/29 0000 Intake Total 760 740 Output Total 950 400 Balance -190 340 Intake, Blood 350 Product Intake, IV 400 150 Intake, Oral 360 240 Output, Urine 950 400 Patient 79.379 kg Weight Physical Exam General Appearance: Alert, Oriented X3, Cooperative, No Acute Distress Cardiovascular: Regular Rate Lungs: Clear to Auscultation, Normal Air Movement Abdomen: Soft, No Tenderness Neurological: Normal Speech Extremities: BLE toes amputations except right pinky toes left Chronic skin changes from previous PMH. Current Medications: Current Medications Sig/Salome Start time Last Medication Dose Route Stop Time Status Admin Acetaminophen 650 MG Q6P PRN 12/28 1515 AC PO Acetaminophen 1,000 MG Q6P PRN 12/28 1515 AC 12/29 IV 0343 Albuterol Sulfate 2 PUF Q4P PRN 12/28 1600 AC INH Aspirin Buffered 81 MG QAM 12/29 1000 AC 12/29 PO 0943 Atorvastatin Calcium 80 MG QAM 12/29 1000 AC 12/29 PO 0943 Budesonide/ 2 PUF BID 12/28 2200 AC 12/29 Formoterol Fumarate INH 0944 Clopidogrel Bisulfate 75 MG DAILY 12/29 1000 AC 12/29 PO 0943 Dextrose 25 GM ONCE ONE 12/28 1545 DC 12/28 IV 12/28 1546 1545 Dextrose 0 .STK-MED ONE 12/28 1519 DC IV Dextrose 50 GM ONCE ONE 12/28 1500 CAN IV 12/28 1501 Dextrose 1 SYR ONE ONE 12/28 1415 CAN IV 12/28 1416 Ezetimibe 10 MG DAILY 12/29 1000 AC 12/29 PO 0943 Ferrous Sulfate 325 MG TID 12/28 1600 AC 12/29 PO 0943 Furosemide 40 MG .STK-MED ONE 12/28 2241 DC IV 12/28 2242 Furosemide 20 MG ONCE ONE 12/28 1845 DC 12/28 IV 12/28 1846 2243 Heparin Sodium 5,000 UNIT Q8 12/28 2200 AC 12/29 (Porcine) SC 0554 Insulin Aspart 0 TIDAC 12/28 1700 AC SC Insulin Human Regular 10 UNITS ONCE ONE 12/28 1415 DC 12/28 SC 12/28 1416 1545 Levothyroxine Sodium 0.025 MG DAILY AC 12/29 0700 AC 12/29 PO 0554 Sertraline HCl 50 MG DAILY 12/29 1000 AC 12/29 PO 0943 Sodium Chloride 500 ML .Q10H 12/28 1515 DC 12/28 IV 12/29 0114 1545 Sodium Polystyrene 0 .STK-MED ONE 12/28 1311 DC Sulfonate .ROUTE Sodium Polystyrene 60 ML ONE ONE 12/28 1230 DC 12/28 Sulfonate PO 12/28 1231 1311 Last 24 Hrs of Lab/Sadi Results Last 24 Hrs of Labs/Mics: Laboratory Tests 12/29/17 0900: WBC Pending, RBC Pending, Hgb Pending, Hct Pending, MCV Pending, MCH Pending, MCHC Pending, RDW Pending, Plt Count Pending, MPV Pending 12/29/17 0745: Urine Opiates Screen 127, Methadone Screen < 40, Barbiturate Screen < 60, Ur Phencyclidine Scrn < 6.00, Amphetamines Screen < 100, U Benzodiazepines Scrn < 85, Urine Cocaine Screen < 50, Urine Cannabis Screen < 5.00 12/29/17 0625: Anion Gap 15, Estimated GFR 36 L, BUN/Creatinine Ratio 47.9 H 12/28/17 2100: CBC w Diff Cancelled, WBC Cancelled, RBC Cancelled, Hgb Cancelled, Hct Cancelled , MCV Cancelled, MCH Cancelled, MCHC Cancelled, RDW Cancelled, Plt Count Cancelled, MPV Cancelled 12/28/17 1718: Anion Gap 12, Estimated GFR 33 L, BUN/Creatinine Ratio 45.5 H, Troponin I 0.09 , CBC w Diff NO MAN DIFF REQ, RBC 2.18 L, MCV 93.5, MCH 30.7, MCHC 32.8 L, RDW 19.9 H, MPV 7.4, Gran % 87.6 H, Lymphocytes % 4.8 L, Monocytes % 7.1, Eosinophils % 0.2, Basophils % 0.3, Absolute Granulocytes 6.6 H, Absolute Lymphocytes 0.4 L, Absolute Monocytes 0.5, Absolute Eosinophils 0, Absolute Basophils 0 12/28/17 1255: Plasma Potassium 6.2 *H Assessment/Plan Assessment: Mr. Almanzar is a 67-year-old male with PMH of aortic stenosis, CAD s/p CABG (2016), CHF (last Echo 11/20/2017), hypertension, hyperlipidemia, NSTEMI, PVD, pending PillCam for GI Bleed, urinary incontinence, CKD (baseline Cr 1.4-2.4), Chronic osteomyelities w/ toes amputation, and Anemia w/ hx of transfusion ( baseline Hgb 8.5-9.5). Patient was admitted this time with similar complaints on last admission back in 11/14/2017, however he was restarted on lisinopril 2.5 mg daily, which could be contributed to patient's recurrent hyperkalemia. Patient's EKG in the ER also showed more peaked T waves compared with the previous back in November. In addition patient's chronic kidney disease, however was unclear baseline of creatinine, may also contribute to hyperkalemia. Patient's potassium on presentation was 6.6, and decreased to 6.2 after 1 dose of Kayexalate, however without any bowel movement. According to the , patient was not at his mental baseline. The stated that patient was taken Percocet by himself at home for his pain at shoulder status post shoulder injury repair, however denied any previous episodes overdose of opioids. Patient also appeared to be pale pale and anemic, with hemoglobin 7.1 in the ER. Problem list #Hyperkalemia her current likely contributed by chronic renal insufficiency and use a lisinopril. It is not clear whether patient is compliant with his low potassium diet #History of CAD status post CABG #History of CHF #History hypertension #History of aortic stenosis #history chronic osteomyelities status post bilateral transmetatarsal amputation bilaterally #Chronic anemia w/ hx of multiple transfusion #Altered mental status likely secondary to toxic metabolic encephalopathy or narcotic use Plan -Continue telemetry monitoring movement so far, will add stool softerner. -s/p 2U PRBC on 12/28, latest Hgb was DVT prophylaxis None Dialysis Diet Full Code Problem List: 1. Anemia 2. Hyperkalemia Pain Ratin Pain Location: NA,but c/o of shoulder pain overnight Pain Goal: Remain pain free Pain Plan: see AP Tomorrow's Labs & Rationales: CBC
[2017-12-29 10:46] LABS: ABSOLUTE BASOPHIL COUNT 0 /CUMM (0.0-0.2); ABSOLUTE EOSINOPHIL COUNT 0.1 /CUMM (0.0-0.7); ABSOLUTE GRANULOCYTE CT 7.4 /CUMM (1.4-6.5); ABSOLUTE LYMPH COUNT 0.5 /CUMM (1.2-3.4); ABSOLUTE MONOCYTE COUNT 0.9 /CUMM (0.10-0.60); BASOPHIL % 0.2 % (0.0-2.0); EOSINOPHIL % 0.6 % (0-5); MEAN CORPUSCULAR HGB 29.5 PG (27.0-31.0); MEAN CORPUSCULAR HGB CONC 32.4 G/DL (33.0-37.0); MEAN CORPUSCULAR VOLUME 91.2 FL (80.0-94.0); MEAN PLATELET VOLUME 7.8 FL (7.4-10.4); PLATELET COUNT 185 /CUMM (130-400); RBC DISTRIBUTION WIDTH 20.6 % (11.5-14.5); WHITE BLOOD CELL COUNT 8.8 /CUMM (4.8-10.8)
[2017-12-29 11:45] LABS: HEMATOCRIT 28.8 % (42-52); RED BLOOD CELL CT 3.16 /CUMM (4.70-6.10)
[2017-12-29 11:46] LABS: GRANULOCYTE % 84.1 % (42.2-75.2)
--- NOTE | 2017-12-29 12:07 | PN- Att Addend ---
Attending Addendum Attending Brief Note Patient seen and examined. Plan of care discussed with the medical team and the patient. Available lab work and radiology test reports were reviewed. Patient appears much more awake and alert and oriented. He denies any difficulty breathing or chest pain fever chills nausea vomiting or diarrhea. Exam: General: Patient awake alert oriented without any distress CVS: S1 plus S2 without any murmur or gallops Chest: Few scattered crepitation without any wheeze. There is no respiratory distress. Abdomen: Soft non-tender, bowel sound present, no guarding or rebound MEDIA ASSOCIATE: Awake alert oriented without any focal neuro deficit and follows commands appropriately Extremities: No edema; no clubbing or cyanosis noted; pallor is noted Assessment And problem list * Hyperkalemia her current likely contributed by chronic renal insufficiency and use a lisinopril. It is not clear whether patient is compliant with his low potassium diet- potassium has decreased * History of CAD status post CABG * History of CHF and pleural effusion by chest x-ray * His hypertension * History your stenosis * history chronic Stimmel at this of feet status post transmetatarsal amputation bilaterally * Chronic anemia * ? confusion and delirium likely secondary to toxic metabolic encephalopathy or narcotic use Plan * Continue daily Kayexalate oral; recheck potassium in a.m. * Hold lisinopril * Restart Lasix at home dose * Obtain nephrology consult * Hold narcotics CXR Mild to moderate cardiomegaly and pulmonary venous congestion. No overt pulmonary edema. Right-sided pleural effusion and adjacent pulmonary opacity. The opacity could represent atelectasis however possibility of superimposed pneumonia is not excluded. Clinical correlation is suggested. Current Medications Sig/Salome Start time Last Medication Dose Route Stop Time Status Admin Acetaminophen 650 MG Q6P PRN 12/28 1515 AC PO Acetaminophen 1,000 MG Q6P PRN 12/28 1515 AC 12/29 IV 0343 Albuterol Sulfate 2 PUF Q4P PRN 12/28 1600 AC INH Aspirin Buffered 81 MG QAM 12/29 1000 AC 12/29 PO 0943 Atorvastatin Calcium 80 MG QAM 12/29 1000 AC 12/29 PO 0943 Budesonide/ 2 PUF BID 12/28 2200 AC 12/29 Formoterol Fumarate INH 0944 Clopidogrel Bisulfate 75 MG DAILY 12/29 1000 AC 12/29 PO 0943 Dextrose 25 GM ONCE ONE 12/28 1545 DC 12/28 IV 12/28 1546 1545 Dextrose 0 .STK-MED ONE 12/28 1519 DC IV Dextrose 50 GM ONCE ONE 12/28 1500 CAN IV 12/28 1501 Dextrose 1 SYR ONE ONE 12/28 1415 CAN IV 12/28 1416 Docusate Sodium 100 MG DAILY NEEDED PRN 12/29 1130 AC PO Ezetimibe 10 MG DAILY 12/29 1000 AC 12/29 PO 0943 Ferrous Sulfate 325 MG TID 12/28 1600 AC 12/29 PO 0943 Furosemide 40 MG DAILY 12/29 1122 AC PO Furosemide 40 MG .STK-MED ONE 12/28 2241 DC IV 12/28 2242 Furosemide 20 MG ONCE ONE 12/28 1845 DC 12/28 IV 12/28 184 2243 Heparin Sodium 5,000 UNIT Q8 12/28 2200 AC 12/29 (Porcine) SC 0554 Insulin Aspart 0 TIDAC 12/28 1700 AC SC Insulin Human Regular 10 UNITS ONCE ONE 12/28 1415 DC 12/28 SC 12/28 1416 1545 Levothyroxine Sodium 0.025 MG DAILY AC 12/29 0700 AC 12/29 PO 0554 Polyethylene Glycol 17 GM DAILY 12/29 1120 AC PO Senna 187 MG AT BEDTIME 12/29 2200 AC PO Sertraline HCl 50 MG DAILY 12/29 1000 AC 12/29 PO 0943 Sodium Chloride 500 ML .Q10H 12/28 1515 DC 12/28 IV 12/29 0114 1545 Sodium Polystyrene 0 .STK-MED ONE 12/28 1311 DC Sulfonate .ROUTE Sodium Polystyrene 60 ML ONE ONE 12/28 1230 DC 12/28 Sulfonate PO 12/28 1231 1311 Laboratory Tests 12/29/17 0900: RBC 3.16 L, MCV 91.2, MCH 29.5, MCHC 32.4 L, RDW 20.6 H, MPV 7.8, Gran % 84.1 H, Lymphocytes % 5.4 L, Monocytes % 9.7 H, Eosinophils % 0.6, Basophils % 0.2 , Absolute Granulocytes 7.4 H, Absolute Lymphocytes 0.5 L, Absolute Monocytes 0.9 H, Absolute Eosinophils 0.1, Absolute Basophils 0 12/29/17 0745: Urine Opiates Screen 127, Methadone Screen < 40, Barbiturate Screen < 60, Ur Phencyclidine Scrn < 6.00, Amphetamines Screen < 100, U Benzodiazepines Scrn < 85, Urine Cocaine Screen < 50, Urine Cannabis Screen < 5.00 12/29/17 0625: Anion Gap 15, Estimated GFR 36 L, BUN/Creatinine Ratio 47.9 H 12/28/17 2100: CBC w Diff Cancelled, WBC Cancelled, RBC Cancelled, Hgb Cancelled, Hct Cancelled , MCV Cancelled, MCH Cancelled, MCHC Cancelled, RDW Cancelled, Plt Count Cancelled, MPV Cancelled 12/28/17 1718: Anion Gap 12, Estimated GFR 33 L, BUN/Creatinine Ratio 45.5 H, Troponin I 0.09 , CBC w Diff NO MAN DIFF REQ, RBC 2.18 L, MCV 93.5, MCH 30.7, MCHC 32.8 L, RDW 19.9 H, MPV 7.4, Gran % 87.6 H, Lymphocytes % 4.8 L, Monocytes % 7.1, Eosinophils % 0.2, Basophils % 0.3, Absolute Granulocytes 6.6 H, Absolute Lymphocytes 0.4 L, Absolute Monocytes 0.5, Absolute Eosinophils 0, Absolute Basophils 0 12/28/17 1255: Plasma Potassium 6.2 *H 12/28/17 1100: Anion Gap 13, Estimated GFR 30 L, BUN/Creatinine Ratio 42.3 H, Glucose 127 H, Calcium 9.4, Magnesium 2.2, Troponin I 0.03, [id number] Pept 48699 H, PT 14.4 H, INR 1.32 H, D-Dimer High Sensitivty 1182 H, CBC w Diff NO MAN DIFF REQ, RBC 2.35 L, MCV 93.2, MCH 30.1, MCHC 32.3 L, RDW 19.5 H, MPV 7.8, Gran % 88.7 H, Lymphocytes % 3.0 L, Monocytes % 7.9, Eosinophils % 0.3, Basophils % 0.1, Absolute Granulocytes 8.2 H, Absolute Lymphocytes 0.3 L, Absolute Monocytes 0.7 H, Absolute Eosinophils 0, Absolute Basophils 0 Vital Signs Date Time Temp Pulse Resp B/P B/P Pulse O2 O2 Flow FiO2 Mean Ox Delivery Rate 12/29 0643 98.5 78 20 120/80 97 Room Air 12/28 2245 98.3 69 20 132/0 95 Room Air 12/28 2131 Room Air Room Air 12/28 1854 Room Air 12/28 1622 98.2 73 20 118/70 96 Room Air 12/28 1426 77 18 111/48 100 Room Air 12/28 1228 92 18 143/52 Intake & Output 12/29 1600 12/29 0800 12/29 0000 Intake Total 760 740 Output Total 950 400 Balance -190 340 Intake, Blood 350 Product Intake, IV 400 150 Intake, Oral 360 240 Output, Urine 950 400 Patient 175 lb Weight
[2017-12-29 14:04] VITALS: BP 88/00
--- NOTE | 2017-12-29 19:00 | Cons- Cardiology ---
General Information and HPI Consulting Request Date of Consult: 12/29/17 Requested By: Sandy BROWN,[place] Allergies/Medications Allergies: Coded Allergies: No Known Allergies (11/13/17) Home Med List: Albuterol Sulfate (Ventolin Hfa) 90 MCG HFA.AER.AD 1-2 PUF INH AD PRN COPD ( Reported) Ascorbate Calcium (Vitamin C) 500 MG TABLET 500 MG PO QAM SUPPLEMENT ( Reported) Aspirin (Ecotrin*) 81 MG TABLET.DR 1 TAB PO QAM HEART/BLOOD (Reported) Atorvastatin Calcium 80 MG TABLET 1 TAB PO QAM CHOLESTEROL (Reported) Budesonide/Formoterol Fumarate (Symbicort 160-4.5 Mcg Inhaler) 160 MCG-4.5 MCG/ ACTUATION HFA.AER.AD 2 PUF INH BID BREATHING PROBLEMS (Reported) Clopidogrel Bisulfate (Plavix) 75 MG TABLET 1 TAB PO DAILY BLOOD THINNER ( Reported) Cyanocobalamin (Vitamin B-12) 1,000 MCG TABLET 1 TAB PO DAILY SUPPLEMENT ( Reported) Ergocalciferol (Vitamin D2) (Vitamin D2) 50,000 UNIT CAPSULE 1 TAB PO QSUN SUPPLEMENT (Reported) Ezetimibe (Zetia) 10 MG TABLET 10 MG PO DAILY CHOLESTEROL (Reported) Ferrous Sulfate 325 MG (65 MG IRON) TABLET 2 TAB PO BID SUPPLEMENT (Reported) Fish Oil/Dha/Epa (Fish Oil 1,200 MG Fish Oil) 1,200 MG-144 MG-216 MG CAPSULE 1 CAP PO DAILY SUPPLEMENT (Reported) Furosemide (Lasix) 40 MG TABLET 1 TAB PO DAILY CHF Please take as prescribed and follow up with your doctor. Insulin Glargine,Hum.rec.anlog (Lantus Solostar) 100 UNIT/ML (3 ML) INSULN.PEN 4 UNIT SC QPM DIABETES (Reported) Levothyroxine Sodium (Synthroid) 25 MCG TABLET 0.025 MG PO DAILY AC HYPOTHYROIDISM . Lisinopril 2.5 MG TABLET 1 TAB PO DAILY HEART (Reported) Lorazepam (Ativan) 0.5 MG TABLET 1 TAB PO DAILY ANXIETY (Reported) Oxycodone HCl/Acetaminophen (Oxycodone-Acetaminophen 5-325) 5 MG-325 MG TABLET 1 TAB PO BIDP PRN PAIN s/p shoulder surgery (Reported) Sertraline HCl 50 MG TABLET 50 MG PO DAILY DEPRESSION (Reported) Sitagliptin Phosphate (Januvia) 50 MG TABLET 1 TAB PO DAILY DIABETES Please take as prescribed and follow up with your doctor. Past History Travel History Traveled to [place] past 21 day No Medical History Blood Transfusion Hx: No Neurological: GAIT ABDNORMALITY WEAKNESS EENT: NONE Cardiovascular: aortic stenosis, CAD, CHF, hypertension, hyperlipidemia, NSTEMI, PVD Respiratory: NONE Gastrointestinal: appt for pill cam cancelled for today due to ED visit gi bleed Hepatic: NONE Renal: urinary incontinence, CKD Musculoskeletal: CHRONIC OSTEOMYLITIS LFT FOOT- TOES AMP X5 RGHT FOOT- TOES AMP X4 Psychiatric: depression Endocrine: diabetes Blood Disorders: anemia with occ tranfusions Cancer(s): NONE [employer] PULP/Reproductive: NONE Other Medical Hx: aneursym in left groin Surgical History Surgical History: CABG, hernia repair-umbilical, right shoulddr sx aVR bypass of the left (fem/pop) leg? amputation of 9 toes PTCA ESWL by Dr. Ledesma toe amputations bilaterally aortic valve, LE stents Family History Relations & Conditions If Any: FATHER (CAD). , Age 40-50; Cause: CAD (coronary artery disease). MOTHER (Pancreatic cancer). BROTHER (HTN). Psychosocial History Where Do You Live? Home Who Do You Live With? spouse Services at Home: Nursing Primary Language: Arabic Smoking Status: Former Smoker ETOH Use: denies use, alcoholic (previously) Illicit Drug Use: denies illicit drug use Functional Ability ADLs Independent: dressing, eating, toileting, bathing. Ambulation: independent IADLs Independent: shopping, housework, finances, food prep, telephone, transportation , medication admin. Assessment/Plan Consult Acknowledgment - Thank you for your consult request.
--- NOTE | 2017-12-29 22:12 | Cons- Cardiology ---
General Information and HPI Consulting Request Date of Consult: 12/29/17 Requested By: Sandy BROWN,[place] History of Present Illness: Mr. Almanzar is a 67 year old male with history of diabetes, coronary artery disease s/p OK with stent placement to the LCX, renal insufficiency and aortic stenosis. He is now status post cardiac bypass and aortic valve replacement. This patient had noted a generalized weakness, leg weakness and discomfort and some swelling. He was brought to the ER for evaluation of the above and was noted to be severely hyperkalemic. The patient denies any chest discomfort, shortness of breath or palpitations. He was profoundly anemic. To review this patient's prior history, he was initially seen in the ER last April for evaluation of mental status changes which apparently tend to occur when the patient has worsening of his renal function. He has also had a prior hospital admission for a GI bleed and during that admission he had a rise in his cardiac troponin. As such, a repeat cardiac catheterization was done followed by bypass surgery and bioprosthetic aortic valve replacement. This patient's echo shows a mild to moderately decreased EF of 40% with mid to distal and apical inferoseptal severe hypokinesis. Mild left ventricular hypertrophy was noted. The RV appeared D-shaped consistent wtih increased RV pressures. The left atrium is markedly enlarged with mild right atrial enlargement. Moderate pulmonary hypertension was noted. In terms of cardiac valves there is mild MR, moderate TR, trace to mild PI and moderate aortic stenosis with mild AI. Allergies/Medications Allergies: Coded Allergies: No Known Allergies (11/13/17) Home Med List: Albuterol Sulfate (Ventolin Hfa) 90 MCG HFA.AER.AD 1-2 PUF INH AD PRN COPD ( Reported) Ascorbate Calcium (Vitamin C) 500 MG TABLET 500 MG PO QAM SUPPLEMENT ( Reported) Aspirin (Ecotrin*) 81 MG TABLET.DR 1 TAB PO QAM HEART/BLOOD (Reported) Atorvastatin Calcium 80 MG TABLET 1 TAB PO QAM CHOLESTEROL (Reported) Budesonide/Formoterol Fumarate (Symbicort 160-4.5 Mcg Inhaler) 160 MCG-4.5 MCG/ ACTUATION HFA.AER.AD 2 PUF INH BID BREATHING PROBLEMS (Reported) Clopidogrel Bisulfate (Plavix) 75 MG TABLET 1 TAB PO DAILY BLOOD THINNER ( Reported) Cyanocobalamin (Vitamin B-12) 1,000 MCG TABLET 1 TAB PO DAILY SUPPLEMENT ( Reported) Ergocalciferol (Vitamin D2) (Vitamin D2) 50,000 UNIT CAPSULE 1 TAB PO QSUN SUPPLEMENT (Reported) Ezetimibe (Zetia) 10 MG TABLET 10 MG PO DAILY CHOLESTEROL (Reported) Ferrous Sulfate 325 MG (65 MG IRON) TABLET 2 TAB PO BID SUPPLEMENT (Reported) Fish Oil/Dha/Epa (Fish Oil 1,200 MG Fish Oil) 1,200 MG-144 MG-216 MG CAPSULE 1 CAP PO DAILY SUPPLEMENT (Reported) Furosemide (Lasix) 40 MG TABLET 1 TAB PO DAILY CHF Please take as prescribed and follow up with your doctor. Insulin Glargine,Hum.rec.anlog (Lantus Solostar) 100 UNIT/ML (3 ML) INSULN.PEN 4 UNIT SC QPM DIABETES (Reported) Levothyroxine Sodium (Synthroid) 25 MCG TABLET 0.025 MG PO DAILY AC HYPOTHYROIDISM . Lisinopril 2.5 MG TABLET 1 TAB PO DAILY HEART (Reported) Lorazepam (Ativan) 0.5 MG TABLET 1 TAB PO DAILY ANXIETY (Reported) Oxycodone HCl/Acetaminophen (Oxycodone-Acetaminophen 5-325) 5 MG-325 MG TABLET 1 TAB PO BIDP PRN PAIN s/p shoulder surgery (Reported) Sertraline HCl 50 MG TABLET 50 MG PO DAILY DEPRESSION (Reported) Sitagliptin Phosphate (Januvia) 50 MG TABLET 1 TAB PO DAILY DIABETES Please take as prescribed and follow up with your doctor. 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 amputation of 9 toes PTCA ESWL by Dr. Ledesma toe amputations bilaterally aortic valve, LE stents Family History Relations & Conditions If Any: FATHER (CAD). , Age 40-50; Cause: CAD (coronary artery disease). MOTHER (Pancreatic cancer). BROTHER (HTN). Psychosocial History Where Do You Live? Home Who Do You Live With? spouse Services at Home: Nursing Primary Language: Andorran Smoking Status: Former Smoker ETOH Use: denies use, alcoholic (previously) Illicit Drug Use: denies illicit drug use Functional Ability ADLs Independent: dressing, eating, toileting, bathing. Ambulation: independent IADLs Independent: shopping, housework, finances, food prep, telephone, transportation , medication admin. Exam & Diagnostic Data Vital Signs and I&O Vital Signs Date Time Temp Pulse Resp B/P B/P Pulse O2 O2 Flow FiO2 Mean Ox Delivery Rate 12/29 1600 Room Air 12/29 1404 98.6 62 18 88/00 95 Room Air 12/29 0643 98.5 78 20 120/80 97 Room Air 12/28 2245 98.3 69 20 132/0 95 Room Air Intake & Output 12/29 1600 12/29 0800 12/29 0000 12/28 1600 12/28 0800 12/28 0000 Intake Total 420 760 740 Output Total 795 950 400 Balance -375 -190 340 Intake, Blood 350 Product Intake, IV 400 150 Intake, Oral 420 360 240 Output, Urine 795 950 400 Patient 175 lb 170 lb Weight Weight Reported by Patient Measurement Method Physical Exam: General: WD/WN male in NAD; alert and oriented x 3 HEENT: NC/AT, PERRL, EOMI Neck: no JVD, no carotid bruit Heart: RRR with 2/6 systolic murmur Lungs: clear bilaterally Abdomen: soft, NT, +ve bowel sounds Extremities: no edema, toe amputations bilaterally Assessment/Plan Assessment/Plan * This patient was noted to be profoundly anemic upon admission which is likely the cause of his generalized weakness. Anemia may also contribute to peripheral edema. This anemia is not a new issue. It does not appear that a thorough anemia workup has been done but I previously noted an increased reticulocyte count this past September which argues against decreased production such as from renal insufficiency. There may be a mixed picture however since his RDW is also elevated. There was a plan for a pill cam as an outpatient that was not done. I have encouraged this study to be pursued. * The patient does have renal insufficiency with increased BUN, creatinine and potassium. I would hold his diuretic and ACEI for now. * In addition to his anemia, this patient almost certainly has severe sleep apnea but his sleep study was also note done and I strongly recommend that this be set up as an outpatient. The patient was doing well until he started taking Percocet for his shoulder discomfort. This pattern of mental status changes followed by renal insufficiency has been a recurrent theme. I believe that this patient becomes profoundly hypoxic due to sleep apnea exacerbated by narcotic use. In the setting of this hypoxia his cardiac function decreased and he becomes pre-renal. My recommendation is to avoid all narcotics and sedating medications. * This patient is status post a bioprosthetic aortic valve replacement and CABG x 2. As per the patient's last echocardiogram he does have a decreased EF that is likely contributed to by repeated episodes of hypoxia although he has a known history of coronary artery disease for which he is now revascularized. He is also status post a bioprosthetic AVR. There is no evidence of intracardiac thrombus. If his EF remains low we will consider adding digoxin but I am hesitant to add this drug now since it is cleared by the kidneys and may build up to toxic levels if he has recurrent episodes of renal failure. Consult Acknowledgment - Thank you for your consult request.
[2017-12-29 22:13] VITALS: BP 100/60
[2017-12-29 22:23] VITALS: BP 100/0
[2017-12-30 06:49] VITALS: BP 120/60
--- NOTE | 2017-12-30 07:44 | PN- Housestaff ---
Subjective Follow-up For: #Hyperkalemia 2/2 CKD stage 3/Lisinopril/Dietary incompliance #History of CAD status post CABG #History of systolic HFrEF #History hypertension #History of aortic stenosis #history chronic osteomyelities status post bilateral transmetatarsal amputation bilaterally #Chronic anemia w/ hx of multiple transfusion #Altered mental status likely secondary to toxic metabolic encephalopathy or narcotic use Tele-Events Since Last Visit: SB/NSR 50-70s Subjective: Patient was found to have nose bleeding overnight from 9PM last night to 2AM this morning, resolved spontaneously with compression. Otherwise no overnight event. Patient was resting comfortably. No specific complaint. Review of Systems Constitutional: Reports: see HPI. Objective Last 24 Hrs of Vital Signs/I&O Vital Signs Date Time Temp Pulse Resp B/P B/P Pulse O2 O2 Flow FiO2 Mean Ox Delivery Rate 12/30 0649 98.7 68 20 120/60 94 Room Air 12/29 2223 100/0 12/29 1600 Room Air 12/29 1404 98.6 62 18 88/00 95 Room Air Intake & Output 12/30 1600 12/30 0800 12/30 0000 Intake Total 110 300 Output Total 1100 675 Balance -990 -375 Intake, IV 10 Intake, Oral 100 300 Output, Urine 1100 675 Patient 73.255 kg Weight Physical Exam General Appearance: Cooperative, No Acute Distress, Sleeping Cardiovascular: Regular Rate Lungs: Clear to Auscultation, Normal Air Movement Abdomen: Normal Bowel Sounds Extremities: No Edema, Normal Pulses Current Medications: Current Medications Sig/Salome Start time Last Medication Dose Route Stop Time Status Admin Acetaminophen 650 MG Q6P PRN 12/28 1515 AC PO Acetaminophen 1,000 MG Q6P PRN 12/28 1515 AC 12/29 IV 0343 Albuterol Sulfate 2 PUF Q4P PRN 12/28 1600 AC INH Aspirin Buffered 81 MG QAM 12/29 1000 AC 12/29 PO 0943 Atorvastatin Calcium 80 MG QAM 12/29 1000 AC 12/29 PO 0943 Budesonide/ 2 PUF BID 12/28 2200 AC 12/29 Formoterol Fumarate INH 2103 Clopidogrel Bisulfate 75 MG DAILY 12/29 1000 AC 12/29 PO 0943 Docusate Sodium 100 MG DAILY NEEDED PRN 12/29 1130 AC PO Ezetimibe 10 MG DAILY 12/29 1000 AC 12/29 PO 0943 Ferrous Sulfate 325 MG TID 12/28 1600 AC 12/29 PO 2103 Furosemide 40 MG DAILY 12/29 1122 AC 12/29 PO 1231 Heparin Sodium 5,000 UNIT Q8 12/28 2200 AC 12/30 (Porcine) SC 0617 Insulin Aspart 0 TIDAC 12/28 1700 AC SC Levothyroxine Sodium 0.025 MG DAILY AC 12/29 0700 AC 12/30 PO 0617 Oxycodone/ 1 TAB .[BIDP] PRN 12/29 1315 AC 12/30 Acetaminophen PO 0619 Polyethylene Glycol 17 GM DAILY 12/29 1120 AC 12/29 PO 1233 Senna 187 MG AT BEDTIME 12/29 2200 AC 12/29 PO 2103 Sertraline HCl 50 MG DAILY 12/29 1000 AC 12/29 PO 0943 Sodium Polystyrene 60 ML DAILY 12/29 1330 AC 12/29 Sulfonate PO 12/31 1001 1629 Last 24 Hrs of Lab/Sadi Results Last 24 Hrs of Labs/Mics: Laboratory Tests 12/30/17 0656: Sodium Pending, Potassium Pending, Chloride Pending, Carbon Dioxide Pending, Anion Gap Pending, BUN Pending, Creatinine Pending, BUN/Creatinine Ratio Pending , CBC w Diff Pending, WBC Pending, RBC Pending, Hgb Pending, Hct Pending, MCV Pending, MCH Pending, MCHC Pending, RDW Pending, Plt Count Pending, MPV Pending 12/29/17 0900: RBC 3.16 L, MCV 91.2, MCH 29.5, MCHC 32.4 L, RDW 20.6 H, MPV 7.8, Gran % 84.1 H, Lymphocytes % 5.4 L, Monocytes % 9.7 H, Eosinophils % 0.6, Basophils % 0.2 , Absolute Granulocytes 7.4 H, Absolute Lymphocytes 0.5 L, Absolute Monocytes 0.9 H, Absolute Eosinophils 0.1, Absolute Basophils 0 Assessment/Plan Assessment: Mr. Almanzar is a 67-year-old male with PMH of aortic stenosis, CAD s/p CABG (2016), CHF (last Echo 11/20/2017), hypertension, hyperlipidemia, NSTEMI, PVD, pending PillCam for GI Bleed, urinary incontinence, CKD (baseline Cr 1.4-2.4), Chronic osteomyelities w/ toes amputation, and Anemia w/ hx of transfusion ( baseline Hgb 8.5-9.5). Patient was admitted this time with similar complaints on last admission back in 11/14/2017, however he was restarted on lisinopril 2.5 mg daily, which could be contributed to patient's recurrent hyperkalemia. Patient's EKG in the ER also showed more peaked T waves compared with the previous back in November. In addition patient's chronic kidney disease, however was unclear baseline of creatinine, may also contribute to hyperkalemia. Patient's potassium on presentation was 6.6, and decreased to 6.2 after 1 dose of Kayexalate, however without any bowel movement. According to the , patient was not at his mental baseline. The stated that patient was taken Percocet by himself at home for his pain at shoulder status post shoulder injury repair, however denied any previous episodes overdose of opioids. Patient also appeared to be pale pale and anemic, with hemoglobin 7.1 in the ER. Problem list #Hyperkalemia 2/2 CKD stage 3/Lisinopril/Dietary incompliance? #History of CAD status post CABG #History of systolic HFrEF #History hypertension #History of aortic stenosis #history chronic osteomyelities status post bilateral transmetatarsal amputation bilaterally #Chronic anemia w/ hx of multiple transfusion, stable now #Altered mental status likely secondary to toxic metabolic encephalopathy or narcotic use, improved Plan -Continue telemetry monitoring movement so far, will add stool softerner. -s/p 2U PRBC on 12/28, latest Hgb was 9.3. - Restarted Lasix 40mg po as his daily home dose. nephrology if renal function worsens. - Restarted Percocet at patient's home dose as urine tox had been negative for overmedication of opioids, and patient's complaining of shoulder pain last day. DVT prophylaxis None Diabetic Diet CC3 Full Code Problem List: 1. Anemia 2. Hyperkalemia Pain Ratin Pain Location: NA Pain Goal: Remain pain free Pain Plan: see AP Tomorrow's Labs & Rationales: CBC/BEP see AP Tomorrow's Labs & Rationales: CBC/BEP
[2017-12-30 08:15] LABS: ABSOLUTE BASOPHIL COUNT 0 /CUMM (0.0-0.2); ABSOLUTE EOSINOPHIL COUNT 0.1 /CUMM (0.0-0.7); ABSOLUTE GRANULOCYTE CT 5.6 /CUMM (1.4-6.5); ABSOLUTE LYMPH COUNT 0.4 /CUMM (1.2-3.4); ABSOLUTE MONOCYTE COUNT 0.8 /CUMM (0.10-0.60); BASOPHIL % 0.4 % (0.0-2.0); EOSINOPHIL % 1.7 % (0-5); GRANULOCYTE % 80.3 % (42.2-75.2); HEMATOCRIT 25.3 % (42-52); MEAN CORPUSCULAR HGB CONC 33.3 G/DL (33.0-37.0); MEAN CORPUSCULAR VOLUME 90.1 FL (80.0-94.0); MEAN PLATELET VOLUME 7.6 FL (7.4-10.4); PLATELET COUNT 168 /CUMM (130-400); RBC DISTRIBUTION WIDTH 19.9 % (11.5-14.5); RED BLOOD CELL CT 2.81 /CUMM (4.70-6.10)
--- NOTE | 2017-12-30 11:32 | Patient Discharge Instructions ---
Discharge Instructions General Discharge Information Special Instructions: - Please check your digoxin level at laboratory on Thursday01/01/2018. - Please follow up with your senior ux developer Dr. Botello within 1-2 weeks of discharge for your heart failure and cardiac medications/Defibrillator implantation. - Please follow up with your project development engineer Dr. Daniel within 1-2 weeks of discharge for your chronic kidney disease. - Please follow up with your GI specialist Dr. Cody Kelly for PillCam. - Please follow up with your primary care physician within 1-2 weeks of discharge. Inform your primary care physician of this admission to . - Continue your current medications per discharge instructions. - Please watch for these problems: Fever, Chills, Nausea, Vomiting, Shortness of Breath, Productive Cough, Chest Pain/Discomfort, Abdominal Pain, Active Bleeding or Bloody urine/stool. Diet Continue normal diet: Yes Recommended Diet: Heart Healthy Activity Full Activity/No Limits: Yes Acute Coronary Syndrome Inclusion Criteria At DC or during hospital stay patient has or had the following: ACS DIAGNOSIS No Discharge Core Measures Meds if any: Prescribed or Continued at Discharge Meds if any: NOT Prescribed or Continued at Discharge Congestive Heart Failure Inclusion Criteria At MI or during hospital stay patient has or had the following: CHF DIAGNOSIS Yes Discharge Core Measures Meds if any: Prescribed or Continued at Discharge KAYLEIGH/ARB for EF <40% No Meds if any: NOT Prescribed or Continued at Discharge No KAYLEIGH/ARB d/t Renal Failure/Azotemia Cerebrovascular accident Inclusion Criteria At MI or during hospital stay patient has or had the following: CVA/TIA Diagnosis No Discharge Core Measures Meds if any: Prescribed or Continued at Discharge Meds if any: NOT Prescribed or Continued at Discharge Venous thromboembolism Inclusion Criteria VTE Diagnosis No VTE Type NONE VTE Confirmed by (Test) NONE Discharge Core Measures - Per Current guidelines, there needs to be overlap - treatment for the first 5 days of Warfarin therapy. - If discharged on Warfarin prior to 5 days of - overlap therapy, the patient will need to be - assessed for post discharge needs including - *Post discharge parental anticoagulation - *Warfarin and/or parental anticoagulation education - *Follow up date to check INR post discharge At least 5 days overlap therapy as Inpatient No Meds if any: Prescribed or Continued at Discharge Note: Overlap Therapy is Warfarin and Anticoagulant Meds if any: NOT Prescribed or Continued at Discharge
--- NOTE | 2017-12-30 11:52 | PN- Att Addend ---
Attending Addendum Attending Brief Note Patient seen and examined. Plan of care discussed with the medical team and the patient. Available lab work and radiology test reports were reviewed. Patient appears much more awake and alert and oriented. He denies any difficulty breathing or chest pain fever chills nausea vomiting or diarrhea. He has been able to walk without difficulty and without any difficulty breathing. Exam: General: Patient awake alert oriented without any distress; appears slightly pale CVS: S1 plus S2 without any murmur or gallops Chest: Few scattered crepitation without any wheeze. There is no respiratory distress. 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 It is not clear whether patient is compliant with his low potassium diet- potassium has decreased * History of CAD status post CABG * History of CHF and pleural effusion by chest x-ray * His hypertension * History your stenosis * history chronic Stimmel at this of feet status post transmetatarsal amputation bilaterally * Chronic anemia- most likely secondary to chronic renal failure * ? confusion and delirium likely secondary to toxic metabolic encephalopathy or narcotic use Plan * No lisinopril upon discharge * Restart Lasix at home dose * Patient can resume Percocet 1 tablet twice a day when necessary * Appears stable for discharge Current Medications Sig/Salome Start time Last Medication Dose Route Stop Time Status Admin Acetaminophen 650 MG Q6P PRN 12/28 1515 AC PO Acetaminophen 1,000 MG Q6P PRN 12/28 1515 AC 12/29 IV 0343 Albuterol Sulfate 2 PUF Q4P PRN 12/28 1600 AC INH Aspirin Buffered 81 MG QAM 12/29 1000 AC 12/30 PO 0914 Atorvastatin Calcium 80 MG QAM 12/29 1000 AC 12/30 PO 0914 Budesonide/ 2 PUF BID 12/28 2200 AC 12/30 Formoterol Fumarate INH 0914 Clopidogrel Bisulfate 75 MG DAILY 12/29 1000 AC 12/30 PO 0914 Docusate Sodium 100 MG DAILY NEEDED PRN 12/29 1130 AC PO Ezetimibe 10 MG DAILY 12/29 1000 AC 12/30 PO 0914 Ferrous Sulfate 325 MG TID 12/28 1600 AC 12/30 PO 0914 Furosemide 40 MG DAILY 12/29 1122 AC 12/30 PO 0914 Heparin Sodium 5,000 UNIT Q8 12/28 2200 AC 12/30 (Porcine) SC 0617 Insulin Aspart 0 TIDAC 12/28 1700 AC SC Levothyroxine Sodium 0.025 MG DAILY AC 12/29 0700 AC 12/30 PO 0617 Oxycodone/ 1 TAB .[BIDP] PRN 12/29 1315 AC 12/30 Acetaminophen PO 0619 Polyethylene Glycol 17 GM DAILY 12/29 1120 AC 12/30 PO 0914 Senna 187 MG AT BEDTIME 12/29 2200 AC 12/29 PO 2103 Sertraline HCl 50 MG DAILY 12/29 1000 AC 12/30 PO 0914 Sodium Polystyrene 60 ML DAILY 12/29 1330 AC 12/29 Sulfonate PO 12/31 1001 1629 Laboratory Tests 12/30/17 0656: Anion Gap 12, Estimated GFR 47 L, BUN/Creatinine Ratio 52.0 H, CBC w Diff NO MAN DIFF REQ, RBC 2.81 L, MCV 90.1, MCH 30.0, MCHC 33.3, RDW 19.9 H, MPV 7.6, Gran % 80.3 H, Lymphocytes % 5.8 L, Monocytes % 11.8 H, Eosinophils % 1.7, Basophils % 0.4, Absolute Granulocytes 5.6, Absolute Lymphocytes 0.4 L, Absolute Monocytes 0.8 H, Absolute Eosinophils 0.1, Absolute Basophils 0 12/29/17 0900: RBC 3.16 L, MCV 91.2, MCH 29.5, MCHC 32.4 L, RDW 20.6 H, MPV 7.8, Gran % 84.1 H, Lymphocytes % 5.4 L, Monocytes % 9.7 H, Eosinophils % 0.6, Basophils % 0.2 , Absolute Granulocytes 7.4 H, Absolute Lymphocytes 0.5 L, Absolute Monocytes 0.9 H, Absolute Eosinophils 0.1, Absolute Basophils 0 12/29/17 0745: Urine Opiates Screen 127, Methadone Screen < 40, Barbiturate Screen < 60, Ur Phencyclidine Scrn < 6.00, Amphetamines Screen < 100, U Benzodiazepines Scrn < 85, Urine Cocaine Screen < 50, Urine Cannabis Screen < 5.00 12/29/17 0625: Anion Gap 15, Estimated GFR 36 L, BUN/Creatinine Ratio 47.9 H 12/28/17 2100: CBC w Diff Cancelled, WBC Cancelled, RBC Cancelled, Hgb Cancelled, Hct Cancelled , MCV Cancelled, MCH Cancelled, MCHC Cancelled, RDW Cancelled, Plt Count Cancelled, MPV Cancelled 12/28/17 1718: Anion Gap 12, Estimated GFR 33 L, BUN/Creatinine Ratio 45.5 H, Troponin I 0.09 , CBC w Diff NO MAN DIFF REQ, RBC 2.18 L, MCV 93.5, MCH 30.7, MCHC 32.8 L, RDW 19.9 H, MPV 7.4, Gran % 87.6 H, Lymphocytes % 4.8 L, Monocytes % 7.1, Eosinophils % 0.2, Basophils % 0.3, Absolute Granulocytes 6.6 H, Absolute Lymphocytes 0.4 L, Absolute Monocytes 0.5, Absolute Eosinophils 0, Absolute Basophils 0 12/28/17 1255: Plasma Potassium 6.2 *H 12/28/17 1100: Anion Gap 13, Estimated GFR 30 L, BUN/Creatinine Ratio 42.3 H, Glucose 127 H, Calcium 9.4, Magnesium 2.2, Troponin I 0.03, Mbq-[id number]-[id number] Pept 71524 H, PT 14.4 H, INR 1.32 H, D-Dimer High Sensitivty 1182 H, CBC w Diff NO MAN DIFF REQ, RBC 2.35 L, MCV 93.2, MCH 30.1, MCHC 32.3 L, RDW 19.5 H, MPV 7.8, Gran % 88.7 H, Lymphocytes % 3.0 L, Monocytes % 7.9, Eosinophils % 0.3, Basophils % 0.1, Absolute Granulocytes 8.2 H, Absolute Lymphocytes 0.3 L, Absolute Monocytes 0.7 H, Absolute Eosinophils 0, Absolute Basophils 0 Vital Signs Date Time Temp Pulse Resp B/P B/P Pulse O2 O2 Flow FiO2 Mean Ox Delivery Rate 12/30 0649 98.7 68 20 120/60 94 Room Air 12/29 2223 100/0 12/29 1600 Room Air 12/29 1404 98.6 62 18 88/00 95 Room Air Intake & Output 12/30 1600 12/30 0800 12/30 0000 Intake Total 110 300 Output Total 1100 675 Balance -990 -375 Intake, IV 10 Intake, Oral 100 300 Output, Urine 1100 675 Patient 162 lb Weight Total time spent in preparation for discharge plan, patient education, and CMR preparation was 35 minutes.
--- NOTE | 2017-12-30 12:13 | PN- Cardiology ---
Subjective Subjective: * Patient feels well without chest discomfort or shortness of breath. * sinus rhythm * persistent anemia Objective Vital Signs and I&Os Vital Signs Date Time Temp Pulse Resp B/P B/P Pulse O2 O2 Flow FiO2 Mean Ox Delivery Rate 12/30 0649 98.7 68 20 120/60 94 Room Air 12/29 2223 100/0 12/29 1600 Room Air 12/29 1404 98.6 62 18 88/00 95 Room Air Intake & Output 12/30 1600 12/30 0800 12/30 0000 12/29 1600 12/29 0800 12/29 0000 Intake Total 110 300 420 760 740 Output Total 1100 675 795 950 400 Balance -990 -375 -375 -190 340 Intake, Blood 350 Product Intake, IV 10 400 150 Intake, Oral 100 300 420 360 240 Output, Urine 1100 675 795 950 400 Patient 162 lb 175 lb Weight Physical Exam: General: WD/WN male in NAD; alert and oriented x 3 Neck: no JVD, no carotid bruit Heart: RRR with 2/6 systolic murmur Lungs: clear bilaterally Extremities: no edema, toe amputations bilaterally Assessment/Plan Assessment/Plan * This patient was noted to be profoundly anemic upon admission which is likely the cause of his generalized weakness. Anemia may also contribute to peripheral edema. This anemia is not a new issue. It does not appear that a thorough anemia workup has been done but I previously noted an increased reticulocyte count this past September which argues against decreased production such as from renal insufficiency. There may be a mixed picture however since his RDW is also elevated. There was a plan for a pill cam as an outpatient that was not done. I have encouraged this study to be pursued. * The patient does have renal insufficiency with increased BUN, creatinine and potassium. I would hold his diuretic and ACEI for now. * In addition to his anemia, this patient almost certainly has severe sleep apnea but his sleep study was also note done and I strongly recommend that this be set up as an outpatient. The patient was doing well until he started taking Percocet for his shoulder discomfort. This pattern of mental status changes followed by renal insufficiency has been a recurrent theme. I believe that this patient becomes profoundly hypoxic due to sleep apnea exacerbated by narcotic use. In the setting of this hypoxia his cardiac function decreased and he becomes pre-renal. My recommendation is to avoid all narcotics and sedating medications. * This patient is status post a bioprosthetic aortic valve replacement and CABG x 2. As per the patient's last echocardiogram he does have a decreased EF that is likely contributed to by repeated episodes of hypoxia although he has a known history of coronary artery disease for which he is now revascularized. He is also status post a bioprosthetic AVR. There is no evidence of intracardiac thrombus. * This patient is now 40 days post AR. He has been set up to see Dr. Anam Botello for a defibrillator which will be done if his EF remain low on maximal therapy. Since he is here we will repeat his echocardiogram to assess his EF. Begin digoxin 0.125mg daily. We will follow his level carefully since he has renal insufficiency and this medication is cleared by the kidneys. Check a level on Thursday. Continue telemetry? Yes
[2017-12-30 14:18] VITALS: BP 110/70
--- NOTE | 2017-12-30 14:31 | Discharge Summary ---
Visit Information Visit Dates Admission Date: 12/28/17 Discharge Date: 12/31/2017 Hospital Course Course Attending Physician: Sandy BROWN,[place] Primary Care Physician: Ruy Kendall MD Hospital Course: Mr. Almanzar is a 67-year-old male with PMH of aortic stenosis, CAD s/p CABG (2016), CHF (last Echo 11/20/2017), hypertension, hyperlipidemia, NSTEMI, PVD, pending PillCam for GI Bleed, urinary incontinence, CKD (baseline Cr 1.4-2.4), Chronic osteomyelities w/ toes amputation, and Anemia w/ hx of transfusion ( baseline Hgb 8.5-9.5). Patient was admitted this time with similar complaints on last admission back in 11/14/2017, however he was restarted on lisinopril 2.5 mg daily, which could be contributed to patient's recurrent hyperkalemia. Patient's EKG in the ER also showed more peaked T waves compared with the previous back in November. In addition patient's chronic kidney disease, however was unclear baseline of creatinine, may also contribute to hyperkalemia. Patient's potassium on presentation was 6.6, and decreased to 6.2 after 1 dose of Kayexalate, however without any bowel movement. According to the , patient was not at his mental baseline. The stated that patient was taken Percocet by himself at home for his pain at shoulder status post shoulder injury repair, however denied any previous episodes overdose of opioids. Patient also appeared to be pale pale and anemic, with hemoglobin 7.1 in the ER. On admission, Vitals: Stable on room air 96% saturation -CBC: WBC 9.3, H/H7 0.1/29.9, PLT 167, d-dimer 1182 -BMP: NA 141, K 6.6 -> 6.2, CL 111, CO2 17, CR 2.2, glucose 127, troponin 0.03, proBNP 96991 -CXR: Mild to moderate cardiomegaly and pulmonary venous congestion. No overt pulmonary edema. Right-sided pleural effusion and adjacent pulmonary opacity. -EKG: NSR with RBBB, appeared to be more peaked T wave compared to previous EKG in 11/2017 -Interventions in ER: Kayexalate 1 Problem list #Hyperkalemia 2/2 CKD stage 3/Lisinopril/Dietary incompliance? #History of CAD status post CABG #History of systolic HFrEF #History hypertension #History of aortic stenosis #history chronic osteomyelities status post bilateral transmetatarsal amputation bilaterally #Chronic anemia w/ hx of multiple transfusion, stable now #Altered mental status likely secondary to toxic metabolic encephalopathy or narcotic use, improved Hospital course Upon admission, patient was started on Kayexalate, and monitor urine/bowel movement output. Patient had one bowel movement after 2 doses of Kayexalate was addition of stool softeners. Patient was given 2 units of PRBC on 12/28/2017, and his hemoglobin stabilized above 8 after transfusion, without any complications been noted. One dose of Lasix was given in between the 2 units of PRBC to keep patients from being volume overloaded. Patient's lisinopril was held due to his decreased renal function, however patient's renal function continuously improved over the hospital stay from 2.2- 1.5 and latest lab. Patient's Lasix was restarted at 40 mg daily per his home medication dose. Patient was advised to follow with outpatient nephrology. Patient's urinary toxicology did not reveal any overmedication of opioids. Patient's Percocet was restarted at home dose to alleviate his shoulder pain. Concern of patient's recurrent C of altered mental status followed by renal insufficiency and addition of use of Percocet at home, patient's hypoxic upon admission could be due to sleep apnea extubated but narcotic use. In addition, per cardiology recommendation, since patient had been 40 days post MO, with low ejection fraction on maximal therapy <35%, patient could be a candidate of ICD defibrillator, which was supposed to follow with Dr. Anam Hunt in outpatient setting for further evaluation. Patient's echo was repeated during hospital stay, which showed similar reduced EF around 40-45%. Patient was started on digoxin 0.125 mg daily, and he was advised to check his level on 01/01/2018 as digoxin was cleared by kidneys on top of patient's existing renal insufficiency. Patient was also advised to follow with Dr. Cody Kelly for his outpatient PillCam workup. DVT prophylaxis None Diabetic Diet CC3 Full Code Allergies: Coded Allergies: No Known Allergies (11/13/17) Pertinent Lab Results: SERVICE DATE: 12/28/17 EXAM TYPE: RAD - XRY-CHEST XRAY, TWO VIEWS IMPRESSION: Mild to moderate cardiomegaly and pulmonary venous congestion. No overt pulmonary edema. Right-sided pleural effusion and adjacent pulmonary opacity. The opacity could represent atelectasis however possibility of superimposed pneumonia is not excluded. Clinical correlation is suggested. Disposition Summary Disposition Principal Diagnosis: #Hyperkalemia 2/2 CKD stage 3/Lisinopril/Dietary incompliance? #History of CAD status post CABG #History of systolic HFrEF #History hypertension #History of aortic stenosis #history chronic osteomyelities status post bilateral transmetatarsal amputation bilaterally #Chronic anemia w/ hx of multiple transfusion, stable now #Altered mental status likely secondary to toxic metabolic encephalopathy or narcotic use, improved Additional Diagnosis: As above Discharge Disposition: home health services Discharge Instructions General Discharge Information Code Status: Full Code Patient's Diet: Diabetic CC3 diet Patient's Activity: As tolerated Follow-Up Instructions/Appts: - Please check your digoxin level at laboratory on Thursday01/01/2018. - Please follow up with your casing finisher and stuffer Dr. Botello within 1-2 weeks of discharge for your heart failure and cardiac medications/Defibrillator implantation. - Please follow up with your representative government relations Dr. Daniel within 1-2 weeks of discharge for your chronic kidney disease. - Please follow up with your GI specialist Dr. Cody Kelly for PillCam. - Please follow up with your primary care physician within 1-2 weeks of discharge. Inform your primary care physician of this admission to [facility]. - Continue your current medications per discharge instructions. - Please watch for these problems: Fever, Chills, Nausea, Vomiting, Shortness of Breath, Productive Cough, Chest Pain/Discomfort, Abdominal Pain, Active Bleeding or Bloody urine/stool. Medications at Discharge Discharge Medications: Stop taking the following medications: Lisinopril (Lisinopril) 2.5 MG TABLET ORAL DAILY Continue taking these medications: Lorazepam (Ativan) 0.5 MG TABLET 1 Tablet ORAL DAILY Comments: NOT GIVEN IN HOSPITAL Sertraline HCl (Sertraline HCl) 50 MG TABLET 50 Milligram ORAL DAILY Qty = 90 Comments: Last Taken: 12/31/17 Time: 9AM Ezetimibe (Zetia) 10 MG TABLET 10 Milligram ORAL DAILY Qty = 30 Comments: Last Taken: 12/31/17 Time: 9AM Ergocalciferol (Vitamin D2) (Vitamin D2) 50,000 UNIT CAPSULE 1 Tablet ORAL EVERY THURSDAY Qty = 11 Comments: NOT GIVEN IN HOSPITAL Ferrous Sulfate (Ferrous Sulfate) 325 MG (65 MG IRON) TABLET 2 Tablet ORAL TWICE DAILY Comments: Last Taken: 12/31/17 Time: 4PM Ascorbate Calcium (Vitamin C) 500 MG TABLET 500 Milligram ORAL Every Morning Comments: NOT GIVEN IN HOSPITAL Aspirin (Ecotrin*) 81 MG TABLET.DR 1 Tablet ORAL Every Morning Comments: Last Taken: 12/31/17 Time: 9AM Clopidogrel Bisulfate (Plavix) 75 MG TABLET 1 Tablet ORAL DAILY Comments: Last Taken: 12/31/17 Time: 9AM Cyanocobalamin (Vitamin B-12) 1,000 MCG TABLET 1 Tablet ORAL DAILY Comments: NOT GIVEN IN HOSPITAL Levothyroxine Sodium (Synthroid) 25 MCG TABLET 0.025 Milligram ORAL DAILY BEFORE BREAKFAST Qty = 30 Instructions: . Comments: Last Taken: 12/31/17 Time: 6AM Budesonide/Formoterol Fumarate (Symbicort 160-4.5 Mcg Inhaler) 160 MCG-4.5 MCG/ ACTUATION HFA.AER.AD 2 Puff Inhale through mouth TWICE DAILY Comments: Last Taken: 12/31/17 Time: 9AM Fish Oil/Dha/Epa (Fish Oil 1,200 MG Fish Oil) 1,200 MG-144 MG-216 MG CAPSULE 1 Capsule ORAL DAILY Comments: NOT GIVEN IN HOSPITAL Atorvastatin Calcium (Atorvastatin Calcium) 80 MG TABLET 1 Tablet ORAL Every Morning Qty = 30 Comments: Last Taken: 12/30/17 Time: 5PM Oxycodone HCl/Acetaminophen (Oxycodone-Acetaminophen 5-325) 5 MG-325 MG TABLET 1 Tablet ORAL 2 x Daily as needed as needed for PAIN s/p shoulder surgery Qty = 60 Comments: Last Taken: 12/31/17 Time: 4PM Albuterol Sulfate (Ventolin Hfa) 90 MCG HFA.AER.AD 1-2 Puff Inhale through mouth As Directed as needed for COPD Qty = 36 Comments: NOT GIVEN IN HOSPITAL Furosemide (Lasix) 40 MG TABLET 1 Tablet ORAL DAILY Qty = 60 Instructions: Please take as prescribed and follow up with your doctor. Comments: Last Taken: 12/31/17 Time: 9AM Sitagliptin Phosphate (Januvia) 50 MG TABLET 1 Tablet ORAL DAILY Qty = 30 Instructions: Please take as prescribed and follow up with your doctor. Comments: NOT GIVEN IN HOSPITAL Insulin Glargine,Hum.rec.anlog (Lantus Solostar) 100 UNIT/ML (3 ML) INSULN.PEN 4 Unit Inject into fatty tissue Every night Comments: NOT GIVEN IN HOSPITAL Start taking the following new medications: Digoxin (Lanoxin) 125 MCG TABLET 0.125 Milligram ORAL 5 PM Qty = 30 No Refills Instructions: . Comments: Last Taken: 12/30/17 Time: 4PM Copies To: Enoch BROWN,Ruy Moss
[2017-12-30 23:44] VITALS: BP 100/60
[2017-12-31 06:52] VITALS: BP 120/00
--- NOTE | 2017-12-31 07:36 | PN- Housestaff ---
Subjective Follow-up For: #Hyperkalemia 2/2 CKD stage 3/Lisinopril/Dietary incompliance #History of CAD status post CABG #History of systolic HFrEF #History hypertension #History of aortic stenosis #history chronic osteomyelities status post bilateral transmetatarsal amputation bilaterally #Chronic anemia w/ hx of multiple transfusion #Altered mental status likely secondary to toxic metabolic encephalopathy or narcotic use Tele-Events Since Last Visit: NSR 60-70s Subjective: No overnight event. Patient had bowel movement overnight and had no specific complaint. Would like to go home today. Review of Systems Constitutional: Reports: see HPI. Objective Last 24 Hrs of Vital Signs/I&O Vital Signs Date Time Temp Pulse Resp B/P B/P Pulse O2 O2 Flow FiO2 Mean Ox Delivery Rate 12/31 0652 99.3 60 20 120/00 94 Room Air 12/31 0000 95 Room Air 12/30 2344 99.1 68 16 100/60 93 Room Air 12/30 1721 61 110/70 12/30 1418 97.5 61 20 110/70 95 Intake & Output 12/31 1600 12/31 0800 12/31 0000 Intake Total 200 300 Output Total 450 Balance -250 300 Intake, Oral 200 300 Output, Urine 450 Patient 76.771 kg Weight Physical Exam General Appearance: Alert, Oriented X3, Cooperative, No Acute Distress Cardiovascular: Regular Rate Lungs: Clear to Auscultation, Normal Air Movement Abdomen: Normal Bowel Sounds, Soft, No Tenderness Neurological: Normal Speech Extremities: No Edema, Normal Pulses Current Medications: Current Medications Sig/Salome Start time Last Medication Dose Route Stop Time Status Admin Acetaminophen 650 MG Q6P PRN 12/28 1515 AC PO Acetaminophen 1,000 MG Q6P PRN 12/28 1515 AC 12/29 IV 0343 Albuterol Sulfate 2 PUF Q4P PRN 12/28 1600 AC INH Aspirin Buffered 81 MG QAM 12/29 1000 AC 12/30 PO 0914 Atorvastatin Calcium 80 MG QAM 12/29 1000 AC 12/30 PO 0914 Budesonide/ 2 PUF BID 12/28 2200 AC 12/30 Formoterol Fumarate INH 1945 Clopidogrel Bisulfate 75 MG DAILY 12/29 1000 AC 12/30 PO 0914 Digoxin 0.125 MG 1700 12/30 1700 AC 12/30 PO 1721 Docusate Sodium 100 MG DAILY NEEDED PRN 12/29 1130 AC PO Ezetimibe 10 MG DAILY 12/29 1000 AC 12/30 PO 0914 Ferrous Sulfate 325 MG TID 12/28 1600 AC 12/30 PO 2038 Furosemide 40 MG DAILY 12/29 1122 AC 12/30 PO 0914 Heparin Sodium 5,000 UNIT Q8 12/28 2200 AC 12/31 (Porcine) SC 0552 Insulin Aspart 0 TIDAC 12/28 1700 AC 12/30 SC 1233 Levothyroxine Sodium 0.025 MG DAILY AC 12/29 0700 AC 12/31 PO 0553 Oxycodone/ 1 TAB .[BIDP] PRN 12/29 1315 AC 12/31 Acetaminophen PO 0556 Polyethylene Glycol 17 GM DAILY 12/29 1120 AC 12/30 PO 0914 Senna 187 MG AT BEDTIME 12/29 2200 AC 12/30 PO 1945 Sertraline HCl 50 MG DAILY 12/29 1000 AC 12/30 PO 0914 Sodium Polystyrene 60 ML DAILY 12/29 1330 DC 12/29 Sulfonate PO 12/31 1001 1629 Last 24 Hrs of Lab/Sadi Results Last 24 Hrs of Labs/Mics: Laboratory Tests 12/31/17 0715: Sodium Pending, Potassium Pending, Chloride Pending, Carbon Dioxide Pending, Anion Gap Pending, BUN Pending, Creatinine Pending, BUN/Creatinine Ratio Pending , CBC w Diff Pending, WBC Pending, RBC Pending, Hgb Pending, Hct Pending, MCV Pending, MCH Pending, MCHC Pending, RDW Pending, Plt Count Pending, MPV Pending Assessment/Plan Assessment: Mr. Almanzar is a 67-year-old male with PMH of aortic stenosis, CAD s/p CABG (2016), CHF (last Echo 11/20/2017), hypertension, hyperlipidemia, NSTEMI, PVD, pending PillCam for GI Bleed, urinary incontinence, CKD (baseline Cr 1.4-2.4), Chronic osteomyelities w/ toes amputation, and Anemia w/ hx of transfusion ( baseline Hgb 8.5-9.5). Patient was admitted this time with similar complaints on last admission back in 11/14/2017, however he was restarted on lisinopril 2.5 mg daily, which could be contributed to patient's recurrent hyperkalemia. Patient's EKG in the ER also showed more peaked T waves compared with the previous back in November. In addition patient's chronic kidney disease, however was unclear baseline of creatinine, may also contribute to hyperkalemia. Patient's potassium on presentation was 6.6, and decreased to 6.2 after 1 dose of Kayexalate, however without any bowel movement. According to the , patient was not at his mental baseline. The stated that patient was taken Percocet by himself at home for his pain at shoulder status post shoulder injury repair, however denied any previous episodes overdose of opioids. Patient also appeared to be pale pale and anemic, with hemoglobin 7.1 in the ER. Problem list #Hyperkalemia 2/2 CKD stage 3/Lisinopril/Dietary incompliance? #History of CAD status post CABG #History of systolic HFrEF #History hypertension #History of aortic stenosis #history chronic osteomyelities status post bilateral transmetatarsal amputation bilaterally #Chronic anemia w/ hx of multiple transfusion, stable now #Altered mental status likely secondary to toxic metabolic encephalopathy or narcotic use, improved Plan -Continue telemetry monitoring -s/p 2U PRBC on 12/28, latest Hgb was 8.7. - Restarted Lasix 40mg po as his daily home dose.Overnight BP 100-120s/60-70s. nephrology if renal function worsens. - Restarted Percocet at patient's home dose as urine tox had been negative for overmedication of opioids, and patient's complaining of shoulder pain last day. DVT prophylaxis None Diabetic Diet CC3 Full Code Problem List: 1. H/O aortic valve replacement 2. HFrEF (heart failure with reduced ejection fraction) Pain Ratin Pain Location: NA Pain Goal: Remain pain free Pain Plan: see AP Tomorrow's Labs & Rationales: NA
[2017-12-31 08:31] LABS: ABSOLUTE BASOPHIL COUNT 0 /CUMM (0.0-0.2); ABSOLUTE EOSINOPHIL COUNT 0.2 /CUMM (0.0-0.7); ABSOLUTE GRANULOCYTE CT 5.1 /CUMM (1.4-6.5); ABSOLUTE LYMPH COUNT 0.5 /CUMM (1.2-3.4); ABSOLUTE MONOCYTE COUNT 0.8 /CUMM (0.10-0.60); BASOPHIL % 0.3 % (0.0-2.0); EOSINOPHIL % 2.8 % (0-5); GRANULOCYTE % 76.3 % (42.2-75.2); MEAN CORPUSCULAR HGB 30.1 PG (27.0-31.0); MEAN CORPUSCULAR HGB CONC 33.3 G/DL (33.0-37.0); MEAN CORPUSCULAR VOLUME 90.5 FL (80.0-94.0); MEAN PLATELET VOLUME 7.3 FL (7.4-10.4); PLATELET COUNT 188 /CUMM (130-400); RBC DISTRIBUTION WIDTH 19.9 % (11.5-14.5); RED BLOOD CELL CT 2.88 /CUMM (4.70-6.10); WHITE BLOOD CELL COUNT 6.6 /CUMM (4.8-10.8)
[2017-12-31] MEDS ORDERED: LANOXIN125 MCG PO ×2 (09:38→16:17)
--- NOTE | 2017-12-31 10:32 | PN- Att Addend ---
Attending Addendum Attending Brief Note Patient seen and examined. Plan of care discussed with the medical team and the patient. Available lab work and radiology test reports were reviewed. Patient denies any difficulty breathing or chest pain fever chills nausea vomiting or diarrhea. He has been able to walk without difficulty and without any difficulty breathing. He is anxious to go home today. Exam: General: Patient awake alert oriented without any distress; appears slightly pale CVS: S1 plus S2 without any murmur or gallops Chest: Few scattered crepitation without any wheeze. There is no respiratory distress. Abdomen: Soft non-tender, bowel sound present, no guarding or rebound [employer]: Awake alert oriented without any focal neuro deficit and follows commands appropriately Extremities: No edema; no clubbing or cyanosis noted; pallor is noted Assessment And problem list * Hyperkalemia likely contributed by chronic renal insufficiency and use of lisinopril. It is not clear whether patient is compliant with his low potassium diet- potassium has decreased * History of CAD status post CABG * History of CHF and pleural effusion by chest x-ray * His hypertension * History your stenosis * status post transmetatarsal amputation bilaterally * Chronic anemia- most likely secondary to chronic renal failure * confusion and delirium likely secondary to toxic metabolic encephalopathy or narcotic use- much improved and his mental status is back to his baseline Plan * No lisinopril upon discharge * Continue digoxin * Plan for AICD placement as outpatient * Continue Lasix * Appears stable for discharge if agreed by cardiology * Refer patient for outpatient sleep study Current Medications Sig/Salome Start time Last Medication Dose Route Stop Time Status Admin Acetaminophen 650 MG Q6P PRN 12/28 1515 AC PO Acetaminophen 1,000 MG Q6P PRN 12/28 1515 AC 12/29 IV 0343 Albuterol Sulfate 2 PUF Q4P PRN 12/28 1600 AC INH Aspirin Buffered 81 MG QAM 12/29 1000 AC 12/31 PO 0850 Atorvastatin Calcium 80 MG QAM 12/29 1000 AC 12/31 PO 0850 Budesonide/ 2 PUF BID 12/28 2200 AC 12/31 Formoterol Fumarate INH 0851 Clopidogrel Bisulfate 75 MG DAILY 12/29 1000 AC 12/31 PO 0850 Digoxin 0.125 MG 1700 12/30 1700 AC 12/30 PO 1721 Docusate Sodium 100 MG DAILY NEEDED PRN 12/29 1130 AC PO Ezetimibe 10 MG DAILY 12/29 1000 AC 12/31 PO 0850 Ferrous Sulfate 325 MG TID 12/28 1600 AC 12/31 PO 0850 Furosemide 40 MG DAILY 12/29 1122 AC 12/31 PO 0850 Heparin Sodium 5,000 UNIT Q8 12/28 2200 AC 12/31 (Porcine) SC 0552 Insulin Aspart 0 TIDAC 12/28 1700 AC 12/30 SC 1233 Levothyroxine Sodium 0.025 MG DAILY AC 12/29 0700 AC 12/31 PO 0553 Oxycodone/ 1 TAB .[BIDP] PRN 12/29 1315 AC 12/31 Acetaminophen PO 0556 Polyethylene Glycol 17 GM DAILY 12/29 1120 AC 12/30 PO 0914 Senna 187 MG AT BEDTIME 12/29 2200 AC 12/30 PO 1945 Sertraline HCl 50 MG DAILY 12/29 1000 AC 12/31 PO 0850 Sodium Polystyrene 60 ML DAILY 12/29 1330 DC 12/29 Sulfonate PO 12/31 1001 1629 Laboratory Tests 12/31/17 0715: Anion Gap 10, Estimated GFR 51 L, BUN/Creatinine Ratio 42.1 H, CBC w Diff NO MAN DIFF REQ, RBC 2.88 L, MCV 90.5, MCH 30.1, MCHC 33.3, RDW 19.9 H, MPV 7.3 L, Gran % 76.3 H, Lymphocytes % 8.3 L, Monocytes % 12.3 H, Eosinophils % 2.8, Basophils % 0.3, Absolute Granulocytes 5.1, Absolute Lymphocytes 0.5 L, Absolute Monocytes 0.8 H, Absolute Eosinophils 0.2, Absolute Basophils 0 12/30/17 0656: Anion Gap 12, Estimated GFR 47 L, BUN/Creatinine Ratio 52.0 H, CBC w Diff NO MAN DIFF REQ, RBC 2.81 L, MCV 90.1, MCH 30.0, MCHC 33.3, RDW 19.9 H, MPV 7.6, Gran % 80.3 H, Lymphocytes % 5.8 L, Monocytes % 11.8 H, Eosinophils % 1.7, Basophils % 0.4, Absolute Granulocytes 5.6, Absolute Lymphocytes 0.4 L, Absolute Monocytes 0.8 H, Absolute Eosinophils 0.1, Absolute Basophils 0 12/29/17 0900: RBC 3.16 L, MCV 91.2, MCH 29.5, MCHC 32.4 L, RDW 20.6 H, MPV 7.8, Gran % 84.1 H, Lymphocytes % 5.4 L, Monocytes % 9.7 H, Eosinophils % 0.6, Basophils % 0.2 , Absolute Granulocytes 7.4 H, Absolute Lymphocytes 0.5 L, Absolute Monocytes 0.9 H, Absolute Eosinophils 0.1, Absolute Basophils 0 12/29/17 0745: Urine Opiates Screen 127, Methadone Screen < 40, Barbiturate Screen < 60, Ur Phencyclidine Scrn < 6.00, Amphetamines Screen < 100, U Benzodiazepines Scrn < 85, Urine Cocaine Screen < 50, Urine Cannabis Screen < 5.00 12/29/17 0625: Anion Gap 15, Estimated GFR 36 L, BUN/Creatinine Ratio 47.9 H 12/28/17 2100: CBC w Diff Cancelled, WBC Cancelled, RBC Cancelled, Hgb Cancelled, Hct Cancelled , MCV Cancelled, MCH Cancelled, MCHC Cancelled, RDW Cancelled, Plt Count Cancelled, MPV Cancelled 12/28/17 1718: Anion Gap 12, Estimated GFR 33 L, BUN/Creatinine Ratio 45.5 H, Troponin I 0.09 , CBC w Diff NO MAN DIFF REQ, RBC 2.18 L, MCV 93.5, MCH 30.7, MCHC 32.8 L, RDW 19.9 H, MPV 7.4, Gran % 87.6 H, Lymphocytes % 4.8 L, Monocytes % 7.1, Eosinophils % 0.2, Basophils % 0.3, Absolute Granulocytes 6.6 H, Absolute Lymphocytes 0.4 L, Absolute Monocytes 0.5, Absolute Eosinophils 0, Absolute Basophils 0 12/28/17 1255: Plasma Potassium 6.2 *H 12/28/17 1100: Anion Gap 13, Estimated GFR 30 L, BUN/Creatinine Ratio 42.3 H, Glucose 127 H, Calcium 9.4, Magnesium 2.2, Troponin I 0.03, Crt-[id number] Pept 67214 H, PT 14.4 H, INR 1.32 H, D-Dimer High Sensitivty 1182 H, CBC w Diff NO MAN DIFF REQ, RBC 2.35 L, MCV 93.2, MCH 30.1, MCHC 32.3 L, RDW 19.5 H, MPV 7.8, Gran % 88.7 H, Lymphocytes % 3.0 L, Monocytes % 7.9, Eosinophils % 0.3, Basophils % 0.1, Absolute Granulocytes 8.2 H, Absolute Lymphocytes 0.3 L, Absolute Monocytes 0.7 H, Absolute Eosinophils 0, Absolute Basophils 0 Vital Signs Date Time Temp Pulse Resp B/P B/P Pulse O2 O2 Flow FiO2 Mean Ox Delivery Rate 12/31 0847 98.7 12/31 0652 99.3 60 20 120/00 94 Room Air 12/31 0000 95 Room Air 12/30 2344 99.1 68 16 100/60 93 Room Air 12/30 1721 61 110/70 12/30 1418 97.5 61 20 110/70 95 Intake & Output 12/31 1600 12/31 0800 12/31 0000 Intake Total 600 200 300 Output Total 450 Balance 600 -250 300 Intake, Oral 600 200 300 Output, Urine 450 Patient 169 lb Weight Total time spent in preparation for discharge plan, patient education, and CMR preparation was 35 minutes.
[2017-12-31 14:20] VITALS: BP 110/50
[2017-12-31 15:59] VITALS: BP 110/50
--- NOTE | 2017-12-31 19:36 | PN- Cardiology ---
Subjective Subjective: * No complaints. * creatinine 1.4 Objective Vital Signs and I&Os Vital Signs Date Time Temp Pulse Resp B/P B/P Pulse O2 O2 Flow FiO2 Mean Ox Delivery Rate 12/31 1600 Room Air 12/31 1559 61 110/50 12/31 1420 98.9 61 20 110/50 94 Room Air 12/31 0847 98.7 12/31 0652 99.3 60 20 120/00 94 Room Air 12/31 0000 95 Room Air 12/30 2344 99.1 68 16 100/60 93 Room Air Intake & Output 12/31 1600 12/31 0800 12/31 0000 12/30 1600 12/30 0800 12/30 0000 Intake Total 1000 200 300 110 300 Output Total 891 764 9494 675 Balance 450 -250 300 -990 -375 Intake, IV 10 Intake, Oral 1000 200 300 100 300 Output, Urine 991 985 3840 675 Patient 169 lb 169 lb 162 lb Weight Physical Exam: General: WD/WN male in NAD; alert and oriented x 3 Neck: no JVD, no carotid bruit Heart: RRR with 2/6 systolic murmur Lungs: clear bilaterally Extremities: no edema, toe amputations bilaterally Assessment/Plan Assessment/Plan * This patient was noted to be profoundly anemic upon admission which is likely the cause of his generalized weakness. Anemia may also contribute to peripheral edema. This anemia is not a new issue. It does not appear that a thorough anemia workup has been done but I previously noted an increased reticulocyte count this past September which argues against decreased production such as from renal insufficiency. There may be a mixed picture however since his RDW is also elevated. There was a plan for a pill cam as an outpatient that was not done. I have encouraged this study to be pursued. * The patient does have renal insufficiency with increased BUN, creatinine and potassium. I would hold his diuretic and ACEI for now. * In addition to his anemia, this patient almost certainly has severe sleep apnea but his sleep study was also note done and I strongly recommend that this be set up as an outpatient. The patient was doing well until he started taking Percocet for his shoulder discomfort. This pattern of mental status changes followed by renal insufficiency has been a recurrent theme. I believe that this patient becomes profoundly hypoxic due to sleep apnea exacerbated by narcotic use. In the setting of this hypoxia his cardiac function decreased and he becomes pre-renal. My recommendation is to avoid all narcotics and sedating medications. * This patient is status post a bioprosthetic aortic valve replacement and CABG x 2. As per the patient's last echocardiogram he does have a decreased EF that is likely contributed to by repeated episodes of hypoxia although he has a known history of coronary artery disease for which he is now revascularized. He is also status post a bioprosthetic AVR. There is no evidence of intracardiac thrombus. * This patient is now 40 days post ND. He has been set up to see Dr. Anam Botello for a defibrillator which will be done if his EF remain low on maximal therapy. His repeat echo shows a better EF of 40-45%. Continue digoxin 0.125mg daily. We will follow his level carefully since he has renal insufficiency and this medication is cleared by the kidneys. Check a level on Thursday. * Patient is stable for discharge today. Continue telemetry? No
--- NOTE | 2017-12-31 19:46 | ECHOCARDIOGRAM REPORT ---
VONNIE BUSTAMANTE Age: 67 : 1950 Gender: M Exam Date: 12/31/2017 09:46 Exam Location: 1 [address] Ht (in): 70 Wt (lb): 161 BSA: 1.90 BP: 120 / 0 Ordering Physician: Frances Gregory MD Referring Physician: Frances Gregory MD Technologist: Viajy Ching [facility] Room Number: 178-1 Indications: HEART FAILURE Rhythm: Sinus Technical Quality: good FINDINGS Left Ventricle Normal left ventricular size and wall thickness. Moderately decreased systolic function with anterior wall akinesis. Normal left ventricular diastolic filling pattern for age. The ejection fraction is visually estimated at 40-45%. Right Ventricle The right ventricle is normal in size and function. Right Atrium The right atrium is normal in size. Left Atrium The left atrium is mildly enlarged. The interatrial septum is intact. Mitral Valve The mitral valve is normal in structure and function. There is mild mitral regurgitation. Aortic Valve Bioprosthetic aortic valve with mild stenosis. There is no aortic regurgitation. Tricuspid Valve The tricuspid valve is normal in structure and function. There is moderate tricuspid regurgitation. Pulmonary artery systolic pressure is normal. Pulmonic Valve Structurally normal pulmonic valve. There is no pulmonic regurgitation. Pericardium Normal pericardium without effusion. No pleural effusion. Great Vessels Normal aortic root dimension. The aortic arch and great vessels are well seen and are normal. CONCLUSIONS 1. Mild to moderately decreased EF of 40-45% with anterior wall akinesis,. 2. Mild left atrial enlargement. 3. Mild mitral regurgitation. 4. Moderate tricuspid regurgitaiton. 5. Mild stenosis of a bioprosthetic aortic valve. Roland English M.D. (Electronically Signed) Final Date: 31 December 2017 19:45 MEASUREMENTS (Male / Female) Normal Values 2D ECHO LV Diastolic Diameter PLAX 5.6 cm 4.2 - 5.9 / 3.9 - 5.3 cm LV Systolic Diameter PLAX 4.4 cm 2.1 - 4.0 cm LV Fractional Shortening PLAX 21.4 % 25 - 46 % LV Ejection Fraction 2D Teich 42.9 % IVS Diastolic Thickness 1.0 cm LVPW Diastolic Thickness 1.1 cm LV Relative Wall Thickness 0.4 RV Internal Dim ED PLAX 3.5 cm 1.9 - 3.8 cm LVOT Diameter 1.7 cm Aortic Root Diameter 1.9 cm LA Systolic Diameter LX 4.4 cm 3.0 - 4.0 / 2.7 - 3.8 cm LV Ejection Fraction MOD BP 43.3 % >= 55 % LV Diastolic Length 4C 9.4 cm 6.9 - 10.3 cm LV Diastolic Area 4C 41.7 cm LV Diastolic Volume MOD 4C 151.0 cm LV Ejection Fraction MOD 4C 47.7 % LV Stroke Volume MOD 4C 72.0 cm LV Systolic Length 4C 8.9 cm LV Systolic Area 4C 29.6 cm LV Systolic Volume MOD 4C 79.0 cm LV Ejection Fraction MOD 2C 34.0 % LV Diastolic Volume 4C AL 157.9 cm 85 - 139 / 69 - 109 cm LV Systolic Volume 4C AL 84.0 cm LV Ejection Fraction 4C AL 46.8 % LV Stroke Volume 4C AL 74.0 cm LV Ejection Fraction 2C AL 34.2 % Ascending Aorta Diameter 2.7 cm DOPPLER AV Peak Velocity 312.0 cm/s AV Peak Gradient 38.9 mmHg AV Mean Velocity 224.0 cm/s AV Mean Gradient 23.0 mmHg AV Velocity Time Integral 70.2 cm LVOT Peak Velocity 132.0 cm/s LVOT Peak Gradient 7.0 mmHg LVOT Mean Velocity 84.7 cm/s LVOT Mean Gradient 3.0 mmHg LVOT Velocity Time Integral 31.5 cm LVOT Stroke Volume 71.5 cm AV Area Cont Eq vti 1.0 cm AV Area Cont Eq pk 1.0 cm MV Peak Velocity 161.0 cm/s MV Peak Gradient 10.4 mmHg MV Mean Velocity 77.8 cm/s MV Mean Gradient 3.0 mmHg Mitral E Point Velocity 157.0 cm/s Mitral A Point Velocity 125.0 cm/s Mitral E to A Ratio 1.3 MV PHT Velocity 133.0 cm/s MV Deceleration [place] 389.0 cm/s MV Pressure Half Time 102.6 ms MV Area PHT 2.1 cm MV Deceleration Time 415.0 ms MR Peak Velocity 473.0 cm/s MR Peak Gradient 89.5 mmHg TR Peak Velocity 334.0 cm/s TR Peak Gradient 44.6 mmHg Right Atrial Pressure 10.0 mmHg Pulmonary Artery Systolic Pressu 54.6 mmHg Right Ventricular Systolic Press 54.6 mmHg PV Peak Velocity 105.0 cm/s PV Peak Gradient 4.4 mmHg PV Mean Velocity 70.0 cm/s PV Mean Gradient 2.0 mmHg PV Velocity Time Integral 25.3 cm LV E' Lateral Velocity 8.0 cm/s Mitral E to LV E' Lateral Ratio 19.6 LV E' Septal Velocity 4.8 cm/s Mitral E to LV E' Septal Ratio 32.8
== END 2017-12-31 20:00 | disposition home health service (06) | DRG 682 ==
LOC: ERH 09:41 → 1NO 13:37 → ERHI 13:37 → ENRESERV 15:39 → ENTRNSPT 16:30 → EDTRNSPTSTS 16:40 → EDTRNSPT 16:40 → 1NO 16:56 → CMPTRNSPT 17:00 → 1NO 12-31 20:00
PROVIDERS: Emergency Medicine; Student in an Organized Health Care Education/Training Program
PROC: 30233N1 Transfusion of Nonautologous Red Blood Cells into Peripheral Vein, Percutaneous Approach (ICD-10-PCS; principal; 2017-12-28)
DX: N17.9 Acute kidney failure, unspecified (principal); G92 Toxic encephalopathy; E11.22 Type 2 diabetes mellitus with diabetic chronic kidney disease; E11.51 Type 2 diabetes mellitus with diabetic peripheral angiopathy without gangrene; E87.5 Hyperkalemia; M86.672 Other chronic osteomyelitis, left ankle and foot; I13.0 Hypertensive heart and chronic kidney disease with heart failure and stage 1 through stage 4 chronic kidney disease, or unspecified chronic kidney disease; I50.22 Chronic systolic (congestive) heart failure; Z79.4 Long term (current) use of insulin; Z79.84 Long term (current) use of oral hypoglycemic drugs; D63.8 Anemia in other chronic diseases classified elsewhere; Z91.11 Patient's noncompliance with dietary regimen; N18.3 Chronic kidney disease, stage 3 (moderate); Z91.19 Patient's noncompliance with other medical treatment and regimen; I25.10 Atherosclerotic heart disease of native coronary artery without angina pectoris; Z95.1 Presence of aortocoronary bypass graft; I35.0 Nonrheumatic aortic (valve) stenosis; E78.5 Hyperlipidemia, unspecified; R32 Unspecified urinary incontinence; R26.9 Unspecified abnormalities of gait and mobility; I25.2 Old myocardial infarction; Z89.422 Acquired absence of other left toe(s); Z89.421 Acquired absence of other right toe(s); F32.9 Major depressive disorder, single episode, unspecified; Z95.9 Presence of cardiac and vascular implant and graft, unspecified; F10.21 Alcohol dependence, in remission; Z79.82 Long term (current) use of aspirin; Z79.51 Long term (current) use of inhaled steroids
CPT/HCPCS: 1NP; 36592; 71046; 80307; 82436; 86920; 93005; 93010; 93306; 97116-GO; 97161-GP; 97530-GO; 99291; J0131; J1644; J1940; J3490; J7040; P9016

== ENCOUNTER 2018-01-18 02:44 | Observation (INO) | payer OTHER, MEDICARE ==
[~2018-01-18] VITALS: Ht 177.8 cm; Wt 73.2 kg
[~2018-01-18 02:44] MED LIST changes: +LANOXIN125 MCG PO
[2018-01-18 03:47] LABS: ABSOLUTE BASOPHIL COUNT 0 /CUMM (0.0-0.2); ABSOLUTE EOSINOPHIL COUNT 0 /CUMM (0.0-0.7); ABSOLUTE GRANULOCYTE CT 11.4 /CUMM (1.4-6.5); ABSOLUTE LYMPH COUNT 0.3 /CUMM (1.2-3.4); BASOPHIL % 0 % (0.0-2.0); EOSINOPHIL % 0.3 % (0-5); GRANULOCYTE % 89.9 % (42.2-75.2); HEMATOCRIT 23.4 % (42-52); MEAN CORPUSCULAR HGB 29.3 PG (27.0-31.0); MEAN CORPUSCULAR HGB CONC 32.3 G/DL (33.0-37.0); MEAN CORPUSCULAR VOLUME 90.7 FL (80.0-94.0); MEAN PLATELET VOLUME 7.9 FL (7.4-10.4); PLATELET COUNT 263 /CUMM (130-400); RBC DISTRIBUTION WIDTH 21.2 % (11.5-14.5); RED BLOOD CELL CT 2.58 /CUMM (4.70-6.10); WHITE BLOOD CELL COUNT 12.7 /CUMM (4.8-10.8)
--- NOTE | 2018-01-18 03:50 | ED MVC/FALL/TRAUMA COMPLAINT ---
History of Present Illness General Chief Complaint: Fall Stated Complaint: FALL Source: patient, family, old records, EMS Exam Limitations: clinical condition, poor historian Vital Signs & Intake/Output Vital Signs & Intake/Output Vital Signs Date Time Temp Pulse Resp B/P B/P Pulse O2 O2 Flow FiO2 Mean Ox Delivery Rate 01/18 0534 98.7 75 20 125/61 95 Room Air 01/18 0257 74 28 155/92 93 Room Air Allergies Coded Allergies: No Known Allergies (11/13/17) Reconcile Medications Albuterol Sulfate (Ventolin Hfa) 90 MCG HFA.AER.AD 1-2 PUF INH AD PRN COPD ( Reported) Ascorbate Calcium (Vitamin C) 500 MG TABLET 500 MG PO QAM SUPPLEMENT ( Reported) Aspirin (Ecotrin*) 81 MG TABLET.DR 1 TAB PO QAM HEART/BLOOD (Reported) Budesonide/Formoterol Fumarate (Symbicort 160-4.5 Mcg Inhaler) 160 MCG-4.5 MCG/ ACTUATION HFA.AER.AD 2 PUF INH BID BREATHING PROBLEMS (Reported) Clopidogrel Bisulfate (Plavix) 75 MG TABLET 1 TAB PO DAILY BLOOD THINNER ( Reported) Cyanocobalamin (Vitamin B-12) 1,000 MCG TABLET 1 TAB PO DAILY SUPPLEMENT ( Reported) Digoxin (Lanoxin) 125 MCG TABLET 0.125 MG PO 1700 HFrEF . Ergocalciferol (Vitamin D2) (Vitamin D2) 50,000 UNIT CAPSULE 1 TAB PO QSUN SUPPLEMENT (Reported) Ezetimibe (Zetia) 10 MG TABLET 10 MG PO DAILY CHOLESTEROL (Reported) Ferrous Sulfate 325 MG (65 MG IRON) TABLET 2 TAB PO BID SUPPLEMENT (Reported) Fish Oil/Dha/Epa (Fish Oil 1,200 MG Fish Oil) 1,200 MG-144 MG-216 MG CAPSULE 1 CAP PO DAILY SUPPLEMENT (Reported) Furosemide (Lasix) 40 MG TABLET 1 TAB PO DAILY CHF Please take as prescribed and follow up with your doctor. Insulin Glargine,Hum.rec.anlog (Lantus Solostar) 100 UNIT/ML (3 ML) INSULN.PEN 4 UNIT SC QPM dm (Reported) Insulin Glargine,Hum.rec.anlog (Lantus Solostar) 100 UNIT/ML (3 ML) INSULN.PEN 4 UNIT SC QPM DIABETES (Reported) Levothyroxine Sodium (Synthroid) 25 MCG TABLET 0.025 MG PO DAILY AC HYPOTHYROIDISM . Lorazepam (Ativan) 0.5 MG TABLET 1 TAB PO DAILY ANXIETY (Reported) Oxycodone HCl/Acetaminophen (Oxycodone-Acetaminophen 5-325) 5 MG-325 MG TABLET 1 TAB PO BIDP PRN PAIN s/p shoulder surgery (Reported) Sertraline HCl 50 MG TABLET 50 MG PO DAILY DEPRESSION (Reported) Sitagliptin Phosphate (Januvia) 50 MG TABLET 1 TAB PO DAILY DIABETES Please take as prescribed and follow up with your doctor. Triage Note: PER EMS AND PT FELL SEVERAL HRS AGO CO SEVERE BACK PAIN, DID NOT TAKE ANYTHING FOR PAIN UPON ARRIVAL PT YELLING UNCONTROLLABLY WITH ANY ACTIVITY, VS, ETC ABLE TO ANSWER MOST QUESTIONS Triage Nurses Notes Reviewed? yes Onset: 4 hours Duration: hour(s):, constant, continues in ED Timing: recent history Severity: severe Injuries/Fall Location: chest, abdomen Method of Injury: fall Loss of Consciousness: no loss of consciousness Modifying Factors: Worsens With: movement, palpation. HPI: 4 hours prior to admission patient slipped in the kitchen and fell forward onto his chest. He complains of severe right-sided chest pain worse with movement deep breath palpation nonradiating. He also complains of right upper quadrant abdominal pain. He denies fever chills nausea vomiting diarrhea shortness breath headache dysuria rash bleeding. Past History Travel History Traveled to [place] past 21 day No Medical History Any Pertinent Medical History? 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 amputation of 9 toes [facility]CA ESWL by [address] Ledesma toe amputations bilaterally aortic valve, LE stents Psychosocial History Who do you live with Spouse Services at Home Nursing What is your primary language Citizen Of [place] Tobacco Use: Never used Family History Family History, If Any: FATHER (CAD). , Age 40-50; Cause: CAD (coronary artery disease). MOTHER (Pancreatic cancer). BROTHER (HTN). Hx Contributory? No Review of Systems Review of Systems Constitutional: Reports: no symptoms. Eyes: Reports: no symptoms. Ears, Nose, Throat, Mouth: Reports: no symptoms. Respiratory: Reports: no symptoms. Cardiovascular: Reports: see HPI, chest pain. Gastrointestinal/Abdominal: Reports: see HPI, abdominal pain. Genitourinary: Reports: no symptoms. Musculoskeletal: Reports: no symptoms. Skin: Reports: no symptoms. Neurological/Psychological: Reports: no symptoms. All Other Systems: Reviewed and Negative Physical Exam Physical Exam General Appearance: well developed/nourished, alert, awake, anxious, severe distress Head: atraumatic, normal appearance Eyes: Bilateral: normal appearance, PERRL, EOMI, normal inspection. Ears, Nose, Throat, Mouth: hearing grossly normal, moist mucous membrane Neck: normal inspection, supple, full range of motion, normal alignment Respiratory: normal breath sounds, quiet respiration, R chest wall tenderness without crepitus or stepoff Cardiovascular: regular rate/rhythm, normal peripheral pulses, norml femoral pulses equa Peripheral Pulses: 4+ carotid (R) Gastrointestinal: normal bowel sounds, soft, no organomegaly Back: normal inspection, normal range of motion Extremities: normal range of motion, pedal edema, no ligament instability Neurologic/Psych: awake, alert, oriented x 3, 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 No CVA/TIA Diagnosis No Sepsis Present: No Sepsis Focused Exam Completed? No Progress Differential Diagnosis: ext injury, pelvis injury, pnemothorax Plan of Care: Orders Procedure Date/time Status CBC WITHOUT DIFFERENTIAL 01/19 06 Active BASIC ELECTROLYTES PLUS BUN&CR 01/19 0600 Active Consistent Carbohydrate 3 01/18 B Active TRC EVALUATION (GEN) 01/19 552 Active Pathway - chart 01/18 537 Active House Staff 01/18 537 Active Code Status 01/18 537 Active Patient Data 01/18 0456 Active Add-on Test (ER Only) 01/18 0453 Active Add-on Test (ER Only) 01/18 0445 Active EKG 01/18 044 Active OXYGEN SETUP (GEN) 01/18 044 Active Saline Lock 01/[address] in observation 01/18 044 Active Vital Signs 01/18 044 Active Activity/Ambulation 01/18 044 Active Code Status 01/18 044 Complete Intake & Output 01/18 0346 Active TROPONIN LEVEL 01/18 0335 Complete ETHANOL 01/18 0335 Complete DIGOXIN 01/18 0325 Complete COMPREHENSIVE METABOLIC PANEL 01/18 032 Complete CBC WITHOUT DIFFERENTIAL 01/18 032 Complete PT Evaluate & Treat 01/18 UNK Active VTE Mechanical Prophylaxis 01/18 UNK Active FingerStick- Glucose 01/18 UNK Active Current Medications Sig/Salome Start time Last Medication Dose Stop Time Status Admin Insulin Detemir 4 UNITS AT BEDTIME 01/18 2100 UNVr (Levemir) Digoxin 0.125 MG 1700 01/18 1700 UNVr (Lanoxin) Aspirin Buffered 81 MG QAM 01/18 09 UNVr (Ecotrin) Budesonide/ 2 PUF BID 01/18 09 UNVr Formoterol Fumarate (Symbicort) Clopidogrel Bisulfate 75 MG DAILY 01/18 09 UNVr (Plavix) Cyanocobalamin 1,000 MCG DAILY 01/18 900 UNVr (Vitamin B12) Ezetimibe 10 MG DAILY 01/18 09 UNVr (Zetia) Furosemide 40 MG DAILY 01/18 09 UNVr (Lasix) Lorazepam 0.5 MG DAILY 01/18 09 UNVr (Ativan) 01/25 0859 Sertraline HCl 50 MG DAILY 01/18 09 UNVr (Zoloft) Insulin Aspart 0 TIDAC 01/18 08 UNVr (NovoLOG) Levothyroxine Sodium 0.025 MG DAILY AC 01/18 07 UNVr (Synthroid) Omeprazole 40 MG DAILY AC 01/18 07 CANr (Prilosec) Sodium Chloride 500 ML BOLUS ONE 01/18 0615 UNVr (Normal Saline 0.9%) 01/18 1114 Heparin Sodium 5,000 UNIT Q8 01/18 600 CANr (Porcine) Morphine Sulfate 2 MG Q12P PRN 01/18 600 UNVr (Morphine) Oxycodone/ 1 TAB Q4P PRN 01/18 0545 UNVr Acetaminophen (Percocet) Laboratory Tests 01/18/18 0335: Anion Gap 13, Estimated GFR 43 L, BUN/Creatinine Ratio 40.0 H, Glucose 175 H, Calcium 9.1, Total Bilirubin 0.7, AST 22, ALT 32, Alkaline Phosphatase 90, Troponin I 0.07, Total Protein 8.3 H, Albumin 4.0, Globulin 4.3 H, Albumin/ Globulin Ratio 0.9 L, CBC w Diff NO MAN DIFF REQ, RBC 2.58 L, MCV 90.7, MCH 29.3, MCHC 32.3 L, RDW 21.2 H, MPV 7.9, Gran % 89.9 H, Lymphocytes % 2.2 L, Monocytes % 7.6, Eosinophils % 0.3, Basophils % 0, Absolute Granulocytes 11.4 H , Absolute Lymphocytes 0.3 L, Absolute Monocytes 1.0 H, Absolute Eosinophils 0 , Absolute Basophils 0, Digoxin 0.7 L, Serum Alcohol < 10.0 Diagnostic Imaging: Viewed by Me: CT Scan. Discussed w/RAD: CT Scan. Radiology Impression: No acute traumatic findings of the chest, abdomen, or pelvis. No acute fracture is seen. Small right pleural effusion with associated right basilar opacity favoring atelectasis. There is additional groundglass opacity in the superior segment of the right lower lobe which may be infectious or inflammatory in etiology. Cardiomegaly. Cholelithiasis. Mildly prominent lymph nodes throughout the chest, abdomen, and pelvis are nonspecific. Metastatic disease or lymphoproliferative process not excluded. Initial ED EKG: RBBB Prior EKG: unchanged Rhythm Strip: normal sinus rhythm Departure Departure Time of Disposition: 503 Disposition: STILL A PATIENT Condition: Stable Clinical Impression Primary Impression: Intractable pain Secondary Impressions: Anemia, Fall at home, Renal insufficiency Referrals: Enoch BROWN,Ruy Moss (PCP/Family) Departure Forms: Customer Survey General Discharge Information Observation Note Spoke With: Ricardo BROWN,[place] Physician Advisor Notified: ELISSA CHOI DO Place Patient In: Non-ED OBS Care Area Rationale for Observation: My rational for observation is as follows intractable pain requiring titration of analgesia physical therapy medication adjustment serial lab exam continuing care discharge planning.. Critical Care Note Critical Care Note Critical Care Time: 30-74 min (35)
--- NOTE | 2018-01-18 04:30 | CT SCAN REPORT ---
EXAMINATION: CT CHEST WITHOUT CONTRAST CT ABDOMEN AND PELVIS WITHOUT CONTRAST CLINICAL INFORMATION: Fall forward with right-sided chest pain. Right upper quadrant pain. COMPARISON: Lumbar spine CT from 12/02/2017. Chest CT 07/30/2017. TECHNIQUE: Multidetector volumetric imaging was performed through the chest, abdomen and pelvis without contrast. Sagittal and coronal reformatted images were obtained on the technologist's workstation. Axial MIP volume rendering provided. DLP: 404 mGy-cm. FINDINGS: CHEST: Lungs: The central airways are patent. There is a small right pleural effusion. Patchy consolidation is seen at the right base. Additional groundglass opacity seen at the medial right lower lobe superior segment. Minimal left basilar atelectasis. Centrilobular emphysema noted. No pneumothorax. Mediastinum: The heart is enlarged. Coronary artery calcifications. Aortic valvular hardware. No pericardial effusion. Prominent mediastinal lymph nodes are similar to prior. Chest Wall/Axilla: Prominent left axillary lymph node is similar to prior. No chest wall mass. ABDOMEN/PELVIS: Liver, Gallbladder, Biliary Tree: The liver is normal in size, shape, and attenuation. No focal hepatic lesion or biliary ductal dilatation is present. Gallstones are seen layering in the gallbladder lumen. No gallbladder wall thickening or pericholecystic fluid. Pancreas: Unremarkable. Spleen: Unremarkable. Adrenal Glands: Unremarkable. Kidneys and Ureters: The kidneys are normal in size, shape, and attenuation. There is no hydronephrosis or hydroureter. Bilateral perinephric stranding is noted, similar to prior. There is a left upper pole exophytic renal cyst which is unchanged. Bladder: Unremarkable. Gastrointestinal Tract: The stomach is unremarkable. The small bowel is normal in caliber. No obstruction. No colonic wall thickening or inflammatory change. No free air or free fluid. Abdominal Wall: Small fat-containing inguinal hernias. Lymphovascular Structures: Lymph nodes: Small retroperitoneal lymph nodes are present. Mildly prominent left iliac chain node is difficult to fully characterize. Prominent left inguinal lymph node measures 2.5 x 1.9 cm. Vascular: Normal caliber aorta. Extensive atherosclerotic calcifications. Pelvic Viscera: The prostate and seminal vesicles are unremarkable. OSSEOUS STRUCTURES: There is a chronic right lateral seventh rib fracture. There is no acute rib fracture. Status post median sternotomy. This is new since the prior chest CT. The sternal fragments are not currently united. The pelvis appears intact. Bilateral L5 pars defects. Degenerative changes throughout the spine. Radiopaque anchors in the right humeral head. IMPRESSION: No acute traumatic findings of the chest, abdomen, or pelvis. No acute fracture is seen. Small right pleural effusion with associated right basilar opacity favoring atelectasis. There is additional groundglass opacity in the superior segment of the right lower lobe which may be infectious or inflammatory in etiology. Cardiomegaly. Cholelithiasis. Mildly prominent lymph nodes throughout the chest, abdomen, and pelvis are nonspecific. Metastatic disease or lymphoproliferative process not excluded.
--- NOTE | 2018-01-18 05:27 | History & Physical ---
See Addendum Danika Randolph 01/18/18 0525: General Information and HPI History of Present Illness: Mr. Almanzar is a 67 yo m with PMH of aortic stenosis, alcohol use disorder, DM, CAD s/p CABG (08/2017), CHF (ECHO 11/20/2017), hypertension, hyperlipidemia, NSTEMI, PVD, GI Bleed, urinary incontinence, CKD, Chronic osteomyelities w/ toes amputation, and Anemia BIBA after a fall. Patient poor historian. Patient could not not recall events. As per patient's . Patient was watching television after which he got up went to kitchen 9:45 pm, he had his socks on and walked without assistance. He then fell on his stomach and eventually got back up and went back to couch. Moments later he began to moan loudly due to pain. Patient reports diffused pain 10/10 in severity. reports at baseline he has an unsteady gait due to toe amputations. He denies LOC, blurry vision, palpitations , jerky movements, urinary or bowel incotinence Allergies/Medications Allergies: Coded Allergies: No Known Allergies (11/13/17) Home Med list Albuterol Sulfate (Ventolin Hfa) 90 MCG HFA.AER.AD 1-2 PUF INH AD PRN COPD ( Reported) Ascorbate Calcium (Vitamin C) 500 MG TABLET 500 MG PO QAM SUPPLEMENT ( Reported) Aspirin (Ecotrin*) 81 MG TABLET.DR 1 TAB PO QAM HEART/BLOOD (Reported) Budesonide/Formoterol Fumarate (Symbicort 160-4.5 Mcg Inhaler) 160 MCG-4.5 MCG/ ACTUATION HFA.AER.AD 2 PUF INH BID BREATHING PROBLEMS (Reported) Clopidogrel Bisulfate (Plavix) 75 MG TABLET 1 TAB PO DAILY BLOOD THINNER ( Reported) Cyanocobalamin (Vitamin B-12) 1,000 MCG TABLET 1 TAB PO DAILY SUPPLEMENT ( Reported) Digoxin (Lanoxin) 125 MCG TABLET 0.125 MG PO 1700 HFrEF . Ergocalciferol (Vitamin D2) (Vitamin D2) 50,000 UNIT CAPSULE 1 TAB PO QSUN SUPPLEMENT (Reported) Ezetimibe (Zetia) 10 MG TABLET 10 MG PO DAILY CHOLESTEROL (Reported) Ferrous Sulfate 325 MG (65 MG IRON) TABLET 2 TAB PO BID SUPPLEMENT (Reported) Fish Oil/Dha/Epa (Fish Oil 1,200 MG Fish Oil) 1,200 MG-144 MG-216 MG CAPSULE 1 CAP PO DAILY SUPPLEMENT (Reported) Furosemide (Lasix) 40 MG TABLET 1 TAB PO DAILY CHF Please take as prescribed and follow up with your doctor. Insulin Glargine,Hum.rec.anlog (Lantus Solostar) 100 UNIT/ML (3 ML) INSULN.PEN 4 UNIT SC QPM dm (Reported) Insulin Glargine,Hum.rec.anlog (Lantus Solostar) 100 UNIT/ML (3 ML) INSULN.PEN 4 UNIT SC QPM DIABETES (Reported) Levothyroxine Sodium (Synthroid) 25 MCG TABLET 0.025 MG PO DAILY AC HYPOTHYROIDISM . Lorazepam (Ativan) 0.5 MG TABLET 1 TAB PO DAILY ANXIETY (Reported) Oxycodone HCl/Acetaminophen (Oxycodone-Acetaminophen 5-325) 5 MG-325 MG TABLET 1 TAB PO BIDP PRN PAIN s/p shoulder surgery (Reported) Sertraline HCl 50 MG TABLET 50 MG PO DAILY DEPRESSION (Reported) Sitagliptin Phosphate (Januvia) 50 MG TABLET 1 TAB PO DAILY DIABETES Please take as prescribed and follow up with your doctor. Past History Travel History Traveled to [place] past 21 day No Medical History Neurological: GAIT ABDNORMALITY WEAKNESS EENT: NONE Cardiovascular: aortic stenosis, CAD, CHF, hypertension, hyperlipidemia, NSTEMI, PVD Respiratory: NONE Gastrointestinal: appt for pill cam cancelled for today due to ED visit gi bleed Hepatic: NONE Renal: urinary incontinence, CKD Musculoskeletal: CHRONIC OSTEOMYLITIS LFT FOOT- TOES AMP X5 RGHT FOOT- TOES AMP X4 Psychiatric: depression Endocrine: diabetes Blood Disorders: anemia with occ tranfusions Cancer(s): NONE ELL TUTOR/Reproductive: NONE Other Medical Hx: aneursym in left groin History of MRSA: No History of VRE: No History of CDIFF: No Influenza Vaccine: 08/09/17 Tetanus Vaccine: 04/20/17 Surgical History Surgical History: CABG, hernia repair-umbilical, right shoulddr sx aVR bypass of the left (fem/pop) leg? amputation of 9 toes PTCA ESWL by Dr. Ledesma toe amputations bilaterally aortic valve, LE stents Past Family/Social History Family History Relations & Conditions if any FATHER (CAD). , Age 40-50; Cause: CAD (coronary artery disease). MOTHER (Pancreatic cancer). BROTHER (HTN). Psychosocial History Who Do You Live With? spouse Services at Home: Nursing Primary Language: Estonian Functional Ability ADLs Independent: dressing, eating, toileting, bathing. Ambulation: independent IADLs Independent: shopping, housework, finances, food prep, telephone, transportation , medication admin. Review of Systems Review of Systems Constitutional: Reports: see HPI. Exam & Diagnostic Data Last 24 Hrs of Vital Signs/I&O Vital Signs Date Time Temp Pulse Resp B/P B/P Pulse O2 O2 Flow FiO2 Mean Ox Delivery Rate 01/18 0534 98.7 75 20 125/61 95 Room Air 01/18 0257 74 28 155/92 93 Room Air Intake & Output 01/18 0800 01/18 0000 01/17 1600 Intake Total Output Total 700 Balance -700 Output, Urine 700 Patient 150 lb Weight Weight Reported by Patient Measurement Method Physical Exam General Appearance Alert, Oriented X3, Mild Distress Skin No Significant Lesion HEENT Atraumatic, PERRLA, EOMI, dry mucous membranes Neck Supple Cardiovascular 2/6 systolic murmur Lungs Clear to Auscultation, Normal Air Movement Abdomen Normal Bowel Sounds, Soft, No Tenderness Neurological Normal Speech, Normal Tone, Sensation Intact, Cranial Nerves 3-12 NL Extremities BL 1+ pitting edema, 4/5 motor strength throughout Last 24 Hrs of Labs/Sadi: Laboratory Tests 01/18/18 0335: Anion Gap 13, Estimated GFR 43 L, BUN/Creatinine Ratio 40.0 H, Glucose 175 H, Calcium 9.1, Total Bilirubin 0.7, AST 22, ALT 32, Alkaline Phosphatase 90, Troponin I Pending, Total Protein 8.3 H, Albumin 4.0, Globulin 4.3 H, Albumin/ Globulin Ratio 0.9 L, CBC w Diff NO MAN DIFF REQ, RBC 2.58 L, MCV 90.7, MCH 29.3, MCHC 32.3 L, RDW 21.2 H, MPV 7.9, Gran % 89.9 H, Lymphocytes % 2.2 L, Monocytes % 7.6, Eosinophils % 0.3, Basophils % 0, Absolute Granulocytes 11.4 H , Absolute Lymphocytes 0.3 L, Absolute Monocytes 1.0 H, Absolute Eosinophils 0 , Absolute Basophils 0, Digoxin 0.7 L, Serum Alcohol Pending Diagnostic Data EKG Results RBBB, SR, HR 66, QTc [address] ABD & PELVIS W/O IV CONTRAS; CT CHEST WO IV CONTRAST IMPRESSION: No acute traumatic findings of the chest, abdomen, or pelvis. No acute fracture is seen. Small right pleural effusion with associated right basilar opacity favoring atelectasis. There is additional groundglass opacity in the superior segment of the right lower lobe which may be infectious or inflammatory in etiology. Cardiomegaly. Cholelithiasis. Mildly prominent lymph nodes throughout the chest, abdomen, and pelvis are nonspecific. Metastatic disease or lymphoproliferative process not excluded Assessment/Plan Assessment: Mr. Almanzar is a 67 yo m with PMH of alcohol use disorder, aortic stenosis, DM, CAD s/p CABG (08/2017), CHF (ECHO 11/20/2017), hypertension, hyperlipidemia, NSTEMI, PVD, GI Bleed, urinary incontinence, CKD, Chronic osteomyelities w/ toes amputation, and Anemia BIBA after a mechanical fall. Patient was recently admitted 12/28/17 - 12/31/17 for AMS, hyperkalemia and anemia. At that time he was placed on digoxin for HFrEF per cardiology recommendation. He was advised to follow-up with GI for an outpatient PillCam workup. Problem list: Mechanical fall Leukocytosis - may be reactive Nonspecific lymphadenopathy of chest/abdomen/pelvis History of anemia - unclear source of bleeding History of CKD Plan: Place in 23 hour OBS for further evaluation and management Monitor H&H, hgb goal > 8, transfuse 1U prbcs Accu-Cheks and NovoLog SS Resume home medications Pain: Oxycodone/acetaminophen, morphine PT evaluation for gait instability Consider GI consult if H&H continues to drop Diet: Heart healthy DVT ppx: ALPS Code: Full As Ranked By This Provider Problem List: 1. Fall at home Core Measures/Misc (06/21) Acute Coronary Syndrome ACS Diagnosis: No Congestive Heart Failure Congestive Heart Failure Diagnosis No Cerebrovascular Accident CVA/TIA Diagnosis: No VTE (View Protocol) VTE Risk Factors Age>40 No Mechanical VTE Prophylaxis d/t N/A MechProphylax Ordered No VTE Pharm Prophylaxis d/t Medical Contraindication Sepsis (View protocol) Sepsis Present: No Ac Urena 01/18/18 0607: Resident Review Statement Resident Statement: examined this patient, discussed with brand marketing intern, agreed with brand marketing intern, reviewed images, amended to note Other Findings: 67-year-old gentleman with past medical history of aortic stenosis, CAD s/p CABG (08/2017), CHF (last Echo 11/20/2017), hypertension, hyperlipidemia, NSTEMI, PVD , pending PillCam for GI Bleed, urinary incontinence, CKD (baseline Cr 1.4-2.4), Chronic osteomyelities w/ toes amputation, and Anemia w/ hx of transfusion, CHENG? , Hypothyroidism Came to the hospital with ambulance with chief complaint of chest pain after a fall. Information was obtained from patient and , ED records and patient himself. Apparently 5 hours before coming to the hospital patient tripped in the kitchen and fell on his chest. Patient has chronic gait instability. According to the he did not lose consciousness, denied any chest pain, nausea, vomiting, dizziness, fevers, chills, palpitations, sweating before unruly fall. After the fall patient reported increasing frontal chest pain and after that pain in the back to the point that he was unable to tolerate the pain and required to be transferred to the hospital. Patient denied any weakness, blurred vision, slurred speech during or after the incident. Vital signs in ED were stable in physical exam patient is alert and oriented but in [id number] distress due to pain patient reports the pain is in the front and back of the chest Limited chest exam but clear heart s1 s2 nl and systolic heart murmur 3/6 Abdomen soft and nontender Gross cranial nerve test within normal limits, all 4 limbs extremities 4 out of 5 Bilateral leg edema 1-2+ Labs are notable for WBC 12.7, hemoglobin 7.6, chloride 103, carbon dioxide 20, creatinine 1.6 , troponin pending EKG showed normal sinus rhythm, RBBB, no acute ST elevations Chest, abdomen, pelvis CT: No acute traumatic findings of the chest, abdomen, or pelvis. No acute fracture is seen. Small right pleural effusion with associated right basilar opacity favoring atelectasis. There is additional groundglass opacity in the superior segment of the right lower lobe which may be infectious or inflammatory in etiology. Cardiomegaly. Cholelithiasis. Mildly prominent lymph nodes throughout the chest, abdomen, and pelvis are nonspecific. Metastatic disease or lymphoproliferative process not excluded. Assessment Mechanical fall and chest wall pain History of COPD ? History of CABG History of CKD History of diabetes with amputations History of alcohol abuse Chronic anemia with GI bleed requiring Multiple blood transfusion Plan Admit to general medicine floor TRC nebs and continue Symbicort Check troponin nad alcohol level PT evaluation in the morning Pain management with morphine and Percocet Long acting and short-acting insulin, diabetic diet, Accu-Cheks Hemoglobin 7.6 we will not administer subcutaneous heparin however we continue aspirin and Plavix we will give 1 unit of blood since patient has hx of CAD Watch for any bleeding CBC BEP everyday Continue digoxin for HF per cardiology Continue lorazepam and iron,zetia, levothyroxine, Lasix, sertraline Mild IV hydration with 500 mL of normal saline DVT prophylaxis mechanical at the moment, full code, diabetic diet, IV morphine and PO Percocet for pain control Anoop Husain MD 01/18/18 1740: Attending MD Review Statement Attending Statement Attending MD Statement: examined this patient, discuss w/resident/PA/CUSTOMER SERVICES SUPERVISOR, agreed w/resident/PA/CUSTOMER SERVICES SUPERVISOR, reviewed EMR data (avail), discussed with nursing, discussed with case mgmt, reviewed images, amended to note Attending Assessment/Plan: The patient is a 67 yo male with h/o , EtOH abuse, DM2, CAD (s/p CABG 08/21), HTN, HL, CHF, NSTEMI, PVD, GI Bleed, CKD, PVD, urinary incontinence, chronic osteomyelitis foot, and chronic anemia who presented in the ED today after a mechanical fall onto his chest. He c/o significant chest pain that was more left sided. CT of chest did not reveal any rib fractures and EKG w/o change. He denied dyspnea. He had a recent [facility] admit (and 3 night stay) and was treated for anemia (transfused). Prior EDG/colonoscopy did not reveal source. He just completed pill cam and results pending from Dr. Powell. His H/H has dropped since last admission. Physical Exam: VS: T 98.7, P 75, R 20, BP 125/60, PO 95% RA HEENT: eyes- PERRLA, EOMI jillian- dry mucosa Neck: no JVD, bruits Chest: decreased BS, otherwise clear to A&P. Cor: RRR nl S1, S2 + 2/6 sys murm at LSB Abd BS, soft, NT, - HSM Ext: 1+ edema bilat, no cords, pulses diminished bilaterally Neuro: alert, however dozing with Percocet. Labs/Tests- see above. Impression/Plan: #S/P Mechanical Fall with Chest Wall Pain/Contusion- no fractures observed on X- rays or CT, however cannot entirely exclude hairline fractures. Most likely contusion. Plan: Will bring in as OBServation patient to control pain and assess needs. PT/OT consults. Pain Control with Percocet (if possible avoid Morphine). May need STR. Incentive Spirometry. #COPD- no wheezing at present. Plan: Continue aerosol/albuterol, Symbicort. Will need to be cautious with narcotics as he has had CO2 retension in the past. Follow pulse ox. #CAD/CHF- no clinical CHF at present. Plan: Continue Plavix, ASA. Continue Lasix, Zetia, Plavix, ASA. #Chronic Blood Loss Anemia- slightly decreased H/H. Source not found on EGD/ colonoscopy. Just completed pill cam and results pending (Dr. Powell). Plan: Will transfuse to keep Hgb >= 8. Obtain pill cam records from Dr. powell. Follow serial H/H later. Continue Fe supplement. #DM2- on insulin. Plan: Continue insulin and monitor glucoscans. #Hypothyroid- on Levothyroxine. Plan: Continue Levothyroxine. #Depression- patient is on Sertraline. Plan: Continue Sertraline.
[2018-01-18] MEDS ORDERED: LANTUS SOL100 UNIT/1 SC (05:42)
[2018-01-18 06:55] VITALS: BP 116/68
[2018-01-18 14:17] VITALS: BP 120/70
[2018-01-18 21:41] LABS: ABSOLUTE BASOPHIL COUNT 0.1 /CUMM (0.0-0.2); ABSOLUTE EOSINOPHIL COUNT 0 /CUMM (0.0-0.7); ABSOLUTE GRANULOCYTE CT 10.1 /CUMM (1.4-6.5); ABSOLUTE LYMPH COUNT 0.5 /CUMM (1.2-3.4); ABSOLUTE MONOCYTE COUNT 1.1 /CUMM (0.10-0.60); BASOPHIL % 0.7 % (0.0-2.0); EOSINOPHIL % 0.4 % (0-5); HEMATOCRIT 25.5 % (42-52); MEAN CORPUSCULAR HGB 29.4 PG (27.0-31.0); MEAN CORPUSCULAR HGB CONC 32.7 G/DL (33.0-37.0); MEAN CORPUSCULAR VOLUME 90.1 FL (80.0-94.0); MEAN PLATELET VOLUME 7.4 FL (7.4-10.4); PLATELET COUNT 243 /CUMM (130-400); RBC DISTRIBUTION WIDTH 20.4 % (11.5-14.5); RED BLOOD CELL CT 2.83 /CUMM (4.70-6.10); WHITE BLOOD CELL COUNT 11.8 /CUMM (4.8-10.8)
[2018-01-18 21:43] LABS: GRANULOCYTE % 85.8 % (42.2-75.2)
[2018-01-18 22:20] VITALS: BP 132/56
[2018-01-19 06:00] VITALS: BP 118/78
--- NOTE | 2018-01-19 07:35 | PN- Housestaff ---
See Addendum Subjective Follow-up For: Mechanical fall Chest wall pain Subjective: The patient was seen and examined. He is moaning stating he is in pain, however clinically does not seem to be in distress which would not match the level of his reported pain. Resting in bed, denies any headache, dizziness, lightheadedness, chest, shortness of breath , nausea, vomiting, abdominal pain. Has been refusing Lidoderm patch. Has been refusing to work with physical therapy. VSS. Review of Systems Constitutional: Reports: no symptoms. Denies: chills, diaphoresis, fever, malaise, weakness, unexplained weight loss. Objective Last 24 Hrs of Vital Signs/I&O Vital Signs Date Time Temp Pulse Resp B/P B/P Pulse O2 O2 Flow FiO2 Mean Ox Delivery Rate 01/19 0836 Room Air 01/19 0600 98.7 59 20 118/78 95 Room Air 01/18 2220 99.1 68 22 132/56 97 Room Air 01/18 1724 60 125/62 01/18 1417 97.7 64 20 120/70 92 Room Air Intake & Output 01/19 1600 01/19 0800 01/19 0000 Intake Total 360 600 Output Total 300 1200 100 Balance -300 -840 500 Intake, Oral 360 600 Number 0 Bowel Movements Output, Urine 300 1200 100 Physical Exam General Appearance: Alert, Cooperative, No Acute Distress Other Physical Findings: Skin No Significant Lesion HEENT Atraumatic, PERRLA, EOMI, moist Neck Supple Cardiovascular S1, S2 auscultated,2/6 systolic murmur Lungs Clear to Auscultation, Normal Air Movement Abdomen Normal Bowel Sounds, Soft, No Tenderness Neurological Normal Speech, Normal Tone, Sensation Intact, Cranial Nerves 3-12 NL Extremities BL 1+ pitting edema, 4/5 motor strength throughout, bilateral chronic venous stasis changes, diminished pulsation in 4 extremities. Current Medications: Current Medications Sig/Salome Start time Last Medication Dose Route Stop Time Status Admin Aspirin Buffered 81 MG QAM 01/18 900 AC 01/19 PO 0855 Budesonide/ 2 PUF BID 01/18 900 AC 01/19 Formoterol Fumarate INH 0855 Clopidogrel Bisulfate 75 MG DAILY 01/18 900 AC 01/19 PO 0855 Cyanocobalamin 1,000 MCG DAILY 01/18 900 AC 01/19 PO 0855 Digoxin 0.125 MG 1700 01/18 1700 AC 01/18 PO 1724 Ezetimibe 10 MG DAILY 01/18 0900 AC 01/19 PO 0855 Furosemide 40 MG DAILY 01/18 09 AC 01/19 PO 0855 Insulin Aspart 0 TIDAC 01/18 0800 AC 01/18 SC 1723 Insulin Detemir 4 UNITS AT BEDTIME 01/18 2100 AC 01/18 SC 205 Levothyroxine Sodium 0.025 MG DAILY AC 01/18 0700 AC 01/19 PO 0507 Lidocaine 1 PAT Q24H PRN 01/18 1430 AC EXT Lorazepam 0.5 MG DAILY 01/18 09 AC 01/19 PO 01/25 0859 0855 Melatonin 5 MG AT BEDTIME 01/18 2100 AC 01/18 PO 205 Morphine Sulfate 2 MG Q12P PRN 01/18 0600 DC IV Oxycodone/ 1 TAB Q4P PRN 01/18 0545 AC 01/19 Acetaminophen PO 1452 Sertraline HCl 50 MG DAILY 01/18 09 AC 01/19 PO 0855 Last 24 Hrs of Lab/Sadi Results Last 24 Hrs of Labs/Mics: Laboratory Tests 01/19/1837: Anion Gap 12, Estimated GFR 55 L, BUN/Creatinine Ratio 41.5 H, CBC w Diff NO MAN DIFF REQ, RBC 2.87 L, MCV 89.6, MCH 29.7, MCHC 33.1, RDW 20.1 H, MPV 7.3 L, Gran % 82.8 H, Lymphocytes % 5.8 L, Monocytes % 9.7 H, Eosinophils % 1.7, Basophils % 0, Absolute Granulocytes 7.4 H, Absolute Lymphocytes 0.5 L, Absolute Monocytes 0.9 H, Absolute Eosinophils 0.1, Absolute Basophils 0 01/18/182054: CBC w Diff NO MAN DIFF REQ, RBC 2.83 L, MCV 90.1, MCH 29.4, MCHC 32.7 L, RDW 20.4 H, MPV 7.4, Gran % 85.8 H, Lymphocytes % 4.0 L, Monocytes % 9.1, Eosinophils % 0.4, Basophils % 0.7, Absolute Granulocytes 10.1 H, Absolute Lymphocytes 0.5 L, Absolute Monocytes 1.1 H, Absolute Eosinophils 0, Absolute Basophils 0.1 Assessment/Plan Assessment: This is a 67 YO M w/PMH significant for , EtOH abuse, DM2, CAD (s/p CABG 08/21 ), HTN, HL, CHF, NSTEMI, PVD, GI Bleed, CKD, PVD, urinary incontinence, chronic osteomyelitis foot, and chronic anemia who presented to the ED s/p a mechanical fall. The patient fell onto his chest. Problem list/plan: #S/p mechanical fall, left-sided chest wall pain: * His chest CT did not reveal any rib Fx. EKG w/o change. * PT/OT * Pain Mx w/percocet, avoid overmedicating, avoid IV morphin #h/o COPD-stable * Lethargic this am, ABG did not reveal any hypercapnia * Trc/nebs as needed * c/w symbicort # Chronic blood loss anemia: * Pill cam study done as an outpatient w/Dr. Powell-results pending * Monitor H&H, transfuse if Hb less than 8 #CAD/CHF,DM, Hypothyroidism, HTN,Depression: * Continue with current insulin dose, levothyroxine, aspirin, Plavix, Lasix, Zetia, sertraline #DVT PPX: ALPS #Full code Problem List: 1. Fall at home 2. Anemia Pain Ratin Pain Location: All over Pain Goal: Pain 4 or less Pain Plan: PRN percocet Tomorrow's Labs & Rationales: CBC to monitor H&H BEP to monitor electrolytes
[2018-01-19 09:25] LABS: ABSOLUTE BASOPHIL COUNT 0 /CUMM (0.0-0.2); ABSOLUTE EOSINOPHIL COUNT 0.1 /CUMM (0.0-0.7); ABSOLUTE GRANULOCYTE CT 7.4 /CUMM (1.4-6.5); ABSOLUTE LYMPH COUNT 0.5 /CUMM (1.2-3.4); ABSOLUTE MONOCYTE COUNT 0.9 /CUMM (0.10-0.60); BASOPHIL % 0 % (0.0-2.0); EOSINOPHIL % 1.7 % (0-5); GRANULOCYTE % 82.8 % (42.2-75.2); HEMATOCRIT 25.7 % (42-52); MEAN CORPUSCULAR HGB 29.7 PG (27.0-31.0); MEAN CORPUSCULAR HGB CONC 33.1 G/DL (33.0-37.0); MEAN CORPUSCULAR VOLUME 89.6 FL (80.0-94.0); MEAN PLATELET VOLUME 7.3 FL (7.4-10.4); PLATELET COUNT 214 /CUMM (130-400); RBC DISTRIBUTION WIDTH 20.1 % (11.5-14.5); RED BLOOD CELL CT 2.87 /CUMM (4.70-6.10); WHITE BLOOD CELL COUNT 8.9 /CUMM (4.8-10.8)
[2018-01-19 14:33] VITALS: BP 100/70
[2018-01-19 21:40] VITALS: BP 110/56
[2018-01-20 06:36] VITALS: BP 112/58
--- NOTE | 2018-01-20 08:02 | PN- Housestaff ---
See Addendum Subjective Follow-up For: Mechanical fall Chest wall pain Subjective: The patient was seen and examined. Resting comfortably, denies any any headache, dizziness, lightheadedness, chest, shortness of breath , nausea, vomiting, abdominal pain. Has not worked with PT yet today. VSS. Review of Systems Constitutional: Denies: chills, diaphoresis, fever, malaise, weakness, unexplained weight loss. Objective Last 24 Hrs of Vital Signs/I&O Vital Signs Date Time Temp Pulse Resp B/P B/P Pulse O2 O2 Flow FiO2 Mean Ox Delivery Rate 01/20 0636 98.4 63 20 112/58 92 Room Air 01/19 2140 98.0 62 20 110/56 92 01/19 1736 Room Air 01/19 1735 68 105/64 01/19 1723 Room Air 01/19 1600 Room Air 01/19 1433 98.2 65 20 100/70 95 Room Air 01/19 0836 Room Air Intake & Output 01/20 1600 01/20 0800 01/20 0000 Intake Total 250 250 Output Total 475 500 Balance -225 -250 Intake, IV 10 10 Intake, Oral 240 240 Output, Urine 475 500 Physical Exam General Appearance: Alert, Oriented X3, No Acute Distress Current Medications: Current Medications Sig/Salome Start time Last Medication Dose Route Stop Time Status Admin Aspirin Buffered 81 MG QAM 01/18 09 AC 01/19 PO 0855 Budesonide/ 2 PUF BID 01/18 09 AC 01/19 Formoterol Fumarate INH 9 Clopidogrel Bisulfate 75 MG DAILY 01/18 09 AC 01/19 PO 0855 Cyanocobalamin 1,000 MCG DAILY 01/18 0900 AC 01/19 PO 0855 Digoxin 0.125 MG 1700 01/18 1700 AC 01/19 PO 1735 Ezetimibe 10 MG DAILY 01/18 0900 AC 01/19 PO 0855 Furosemide 40 MG DAILY 01/18 0900 AC 01/19 PO 0855 Insulin Aspart 0 TIDAC 01/18 0800 AC 01/18 SC 1723 Insulin Detemir 4 UNITS AT BEDTIME 01/18 2100 AC 01/19 SC 2027 Levothyroxine Sodium 0.025 MG DAILY AC 01/18 0700 AC 01/20 PO 0610 Lidocaine 1 PAT Q24H PRN 01/18 1430 AC EXT Lorazepam 0.5 MG DAILY 01/18 0900 AC 01/19 PO 01/25 0859 0855 Melatonin 5 MG AT BEDTIME 01/19 2100 AC 01/19 PO 2028 Melatonin 5 MG AT BEDTIME 01/18 2100 AC 01/19 PO 2028 Oxycodone/ 1 TAB Q4P PRN 01/18 0545 AC 01/20 Acetaminophen PO 0611 Sertraline HCl 50 MG DAILY 01/18 0900 AC 01/19 PO 0855 Last 24 Hrs of Lab/Sadi Results Last 24 Hrs of Labs/Mics: Laboratory Tests 01/19/18 1200: pH 7.41, pCO2 33 L, pO2 71 L, HCO3 21, ABG O2 Sat (Measured) 93.0 L, P-50 ( Temp Corrected) N, Carboxyhemoglobin 1.1 L, O2 Concentration % .21, O2 Delivery Method RA, Phlebotomy Draw Site RIGHT RADIAL 01/19/18 0837: Anion Gap 12, Estimated GFR 55 L, BUN/Creatinine Ratio 41.5 H, CBC w Diff NO MAN DIFF REQ, RBC 2.87 L, MCV 89.6, MCH 29.7, MCHC 33.1, RDW 20.1 H, MPV 7.3 L, Gran % 82.8 H, Lymphocytes % 5.8 L, Monocytes % 9.7 H, Eosinophils % 1.7, Basophils % 0, Absolute Granulocytes 7.4 H, Absolute Lymphocytes 0.5 L, Absolute Monocytes 0.9 H, Absolute Eosinophils 0.1, Absolute Basophils 0 Assessment/Plan Assessment: This is a 67 YO M w/PMH significant for , EtOH abuse, DM2, CAD (s/p CABG 08/21 ), HTN, HL, CHF, NSTEMI, PVD, GI Bleed, CKD, PVD, urinary incontinence, chronic osteomyelitis foot, and chronic anemia who presented to the ED s/p a mechanical fall. The patient fell onto his chest. Problem list/plan: #S/p mechanical fall, left-sided chest wall pain: * His chest CT did not reveal any rib Fx. EKG w/o change. * PT/OT; continue to work with PT. * Pain Mx w/percocet, avoid overmedicating, avoid IV morphin #h/o COPD-stable * Lethargic this am, ABG did not reveal any hypercapnia * Trc/nebs as needed * c/w symbicort # Chronic blood loss anemia: * Pill cam study done as an outpatient w/Dr. Powell-results pending * Monitor H&H, transfuse if Hb less than 8 #CAD/CHF,DM, Hypothyroidism, HTN,Depression: * Continue with current insulin dose, levothyroxine, aspirin, Plavix, Lasix, Zetia, sertraline #DVT PPX: ALPS #Full code Problem List: 1. Fall at home Pain Ratin Pain Location: NA Pain Goal: Pain 4 or less Pain Plan: Current regimen Tomorrow's Labs & Rationales: BEP/mg to monitor electrolytes
[2018-01-20 09:38] LABS: ABSOLUTE BASOPHIL COUNT 0 /CUMM (0.0-0.2); ABSOLUTE EOSINOPHIL COUNT 0.2 /CUMM (0.0-0.7); ABSOLUTE LYMPH COUNT 0.5 /CUMM (1.2-3.4); ABSOLUTE MONOCYTE COUNT 0.9 /CUMM (0.10-0.60); BASOPHIL % 0.2 % (0.0-2.0); EOSINOPHIL % 2.3 % (0-5); GRANULOCYTE % 80.9 % (42.2-75.2); HEMATOCRIT 25.9 % (42-52); MEAN CORPUSCULAR HGB 30.5 PG (27.0-31.0); MEAN CORPUSCULAR HGB CONC 33.5 G/DL (33.0-37.0); MEAN CORPUSCULAR VOLUME 91.1 FL (80.0-94.0); MEAN PLATELET VOLUME 7.1 FL (7.4-10.4); PLATELET COUNT 232 /CUMM (130-400); RBC DISTRIBUTION WIDTH 21.2 % (11.5-14.5); RED BLOOD CELL CT 2.84 /CUMM (4.70-6.10); WHITE BLOOD CELL COUNT 8.6 /CUMM (4.8-10.8)
--- NOTE | 2018-01-20 11:34 | Discharge Summary ---
Visit Information Visit Dates Admission Date: 01/18/18 Discharge Date: 01/20/18 Hospital Course Course Attending Physician: Anoop Husain MD Primary Care Physician: Enoch BROWN,Ruy Moss Hospital Course: This is a 67 YO M w/PMH significant for , EtOH abuse, DM2, CAD (s/p CABG 08/21 ), HTN, HL, CHF, NSTEMI, PVD, GI Bleed, CKD, PVD, urinary incontinence, chronic osteomyelitis foot, and chronic anemia who presented to the ED s/p a mechanical fall. The patient fell onto his chest. Vital signs on admission: Date Time Temp Pulse Resp B/P B/P Pulse O2 O2 Flow FiO2 Mean Ox Delivery Rate 01/18 0534 98.7 75 20 125/61 95 Room Air 01/18 0257 74 28 155/92 93 Room Air Physical exam at the time of admission: General Appearance Alert, Oriented X3, Mild Distress Skin No Significant Lesions HEENT Atraumatic, PERRLA, EOMI, dry mucous membranes Neck Supple Cardiovascular 2/6 systolic murmur Lungs Clear to Auscultation, Normal Air Movement Abdomen Normal Bowel Sounds, Soft, No Tenderness Neurological Normal Speech, Normal Tone , Sensation Intact, Cranial Nerves 3-12 NL Extremities BL 1+ pitting edema, 4/5 motor strength throughout, diminished pulse Pertinent labs and diagnostic data on admission: 01/18/18 0335: Anion Gap 13, Estimated GFR 43 L, BUN/Creatinine Ratio 40.0 H, Glucose 175 H, Calcium 9.1, Total Bilirubin 0.7, AST 22, ALT 32, Alkaline Phosphatase 90, Troponin I Pending, Total Protein 8.3 H, Albumin 4.0, Globulin 4.3 H, Albumin/ Globulin Ratio 0.9 L, CBC w Diff NO MAN DIFF REQ, RBC 2.58 L, MCV 90.7, MCH 29.3, MCHC 32.3 L, RDW 21.2 H, MPV 7.9, Gran % 89.9 H, Lymphocytes % 2.2 L, Monocytes % 7.6, Eosinophils % 0.3, Basophils % 0, Absolute Granulocytes 11.4 H , Absolute Lymphocytes 0.3 L, Absolute Monocytes 1.0 H, Absolute Eosinophils 0 , Absolute Basophils 0, Digoxin 0.7 L, Serum Alcohol Pending Diagnostic Data EKG Results RBBB, SR, HR 66, QTc [address] ABD & PELVIS W/O IV CONTRAS; CT CHEST WO IV CONTRAST IMPRESSION: No acute traumatic findings of the chest, abdomen, or pelvis. No acute fracture is seen. Small right pleural effusion with associated right basilar opacity favoring atelectasis. There is additional groundglass opacity in the superior segment of the right lower lobe which may be infectious or inflammatory in etiology. Cardiomegaly. Cholelithiasis. Mildly prominent lymph nodes throughout the chest, abdomen, and pelvis are nonspecific. Metastatic disease or lymphoproliferative process not excluded. The following problems were addressed during the course of hospital stay: #Status post mechanical fall, left-sided chest wall pain: The patient's CTs and x-rays did not reveal any fracture, his EKG did not have any significant changes from prior. Troponin was negative. He was monitored in the hospital, he worked with physical therapy. The patient is susceptible to hypercapnic sedation. Therefore we suggest judicious use of opiates and avoid over sedation. #Mildly prominent lymph nodes throughout the chest, abdomen, and pelvis: Incidental finding noted on CT scan on admission. Patient does not have any alarming symptoms at this point. We recommend close follow-up as an outpatient with primary care. #Small right pleural effusion with associated right basilar opacity favoring atelectasis with groundglass opacity in the superior segment of the right lower lobe: Incidental finding noted on CT scan on admission. We recommend close follow-up as an outpatient with primary care. #History of COPD-stable: The patient received TRC/nebs as needed during his hospital stay. We continued his [place] Symbicort. # Chronic blood loss anemia: The patient underwent Pill cam study done as an outpatient w/Dr. Powell-results to be followed with his office. His H&H was monitored during his hospital stay and remained stable. #CAD/CHF,DM, Hypothyroidism, HTN,Depression:We continued [place] insulin, levothyroxine, aspirin, Plavix, Lasix, Zetia, sertraline #DVT PPX: ALPS #Full code Allergies: Coded Allergies: No Known Allergies (11/13/17) Pertinent Lab Results: Laboratory Tests Laboratory Tests 01/20 01/19 0835 1200 Blood Gas pH (7.35 - 7.45 PH) 7.41 pCO2 (35 - 45 TORR) 33 L pO2 (80 - 100 TORR) 71 L HCO3 (21 - 28 MEQ/L) 21 ABG O2 Sat (Measured) (>96.0 %) 93.0 L P-50 (Temp Corrected) N Carboxyhemoglobin (1.5 - 5.0 %) 1.1 L O2 Concentration % .21 O2 Delivery Method RA Chemistry Sodium (137 - 145 mmol/L) 143 Potassium (3.5 - 5.1 mmol/L) 4.5 Chloride (98 - 107 mmol/L) 106 Carbon Dioxide (22 - 30 mmol/L) 26 Anion Gap (5 - 16) 11 BUN (9 - 20 mg/dL) 45 H Creatinine (0.7 - 1.2 mg/dL) 1.3 H Estimated GFR (>60 ml/min) 55 L BUN/Creatinine Ratio (7 - 25 %) 34.6 H Hematology CBC w Diff NO MAN DIFF REQ WBC (4.8 - 10.8 /CUMM) 8.6 RBC (4.70 - 6.10 /CUMM) 2.84 L Hgb (14.0 - 18.0 G/DL) 8.7 L Hct (42 - 52 %) 25.9 L MCV (80.0 - 94.0 FL) 91.1 MCH (27.0 - 31.0 PG) 30.5 MCHC (33.0 - 37.0 G/DL) 33.5 RDW (11.5 - 14.5 %) 21.2 H Plt Count (130 - 400 /CUMM) 232 MPV (7.4 - 10.4 FL) 7.1 L Gran % (42.2 - 75.2 %) 80.9 H Lymphocytes % (20.5 - 51.1 %) 6.4 L Monocytes % (1.7 - 9.3 %) 10.2 H Eosinophils % (0 - 5 %) 2.3 Basophils % (0.0 - 2.0 %) 0.2 Absolute Granulocytes (1.4 - 6.5 /CUMM) 7.0 H Absolute Lymphocytes (1.2 - 3.4 /CUMM) 0.5 L Absolute Monocytes (0.10 - 0.60 /CUMM) 0.9 H Absolute Eosinophils (0.0 - 0.7 /CUMM) 0.2 Absolute Basophils (0.0 - 0.2 /CUMM) 0 Miscellaneous Phlebotomy Draw Site RIGHT RADIAL 01/19 01/18 9249 0333 Chemistry Sodium (137 - 145 mmol/L) 142 Potassium (3.5 - 5.1 mmol/L) 4.3 Chloride (98 - 107 mmol/L) 109 H Carbon Dioxide (22 - 30 mmol/L) 22 Anion Gap (5 - 16) 12 BUN (9 - 20 mg/dL) 54 H Creatinine (0.7 - 1.2 mg/dL) 1.3 H Estimated GFR (>60 ml/min) 55 L BUN/Creatinine Ratio (7 - 25 %) 41.5 H Hematology CBC w Diff NO MAN DIFF REQ NO MAN DIFF REQ WBC (4.8 - 10.8 /CUMM) 8.9 11.8 H RBC (4.70 - 6.10 /CUMM) 2.87 L 2.83 L Hgb (14.0 - 18.0 G/DL) 8.5 L 8.3 L Hct (42 - 52 %) 25.7 L 25.5 L MCV (80.0 - 94.0 FL) 89.6 90.1 MCH (27.0 - 31.0 PG) 29.7 29.4 MCHC (33.0 - 37.0 G/DL) 33.1 32.7 L RDW (11.5 - 14.5 %) 20.1 H 20.4 H Plt Count (130 - 400 /CUMM) 214 243 MPV (7.4 - 10.4 FL) 7.3 L 7.4 Gran % (42.2 - 75.2 %) 82.8 H 85.8 H Lymphocytes % (20.5 - 51.1 %) 5.8 L 4.0 L Monocytes % (1.7 - 9.3 %) 9.7 H 9.1 Eosinophils % (0 - 5 %) 1.7 0.4 Basophils % (0.0 - 2.0 %) 0 0.7 Absolute Granulocytes (1.4 - 6.5 /CUMM) 7.4 H 10.1 H Absolute Lymphocytes (1.2 - 3.4 /CUMM) 0.5 L 0.5 L Absolute Monocytes (0.10 - 0.60 /CUMM) 0.9 H 1.1 H Absolute Eosinophils (0.0 - 0.7 /CUMM) 0.1 0 Absolute Basophils (0.0 - 0.2 /CUMM) 0 0.1 01/18 0335 Chemistry Sodium (137 - 145 mmol/L) 141 Potassium (3.5 - 5.1 mmol/L) 4.6 Chloride (98 - 107 mmol/L) 108 H Carbon Dioxide (22 - 30 mmol/L) 20 L Anion Gap (5 - 16) 13 BUN (9 - 20 mg/dL) 64 H Creatinine (0.7 - 1.2 mg/dL) 1.6 H Estimated GFR (>60 ml/min) 43 L BUN/Creatinine Ratio (7 - 25 %) 40.0 H Glucose (65 - 99 mg/dL) 175 H Calcium (8.4 - 10.2 mg/dL) 9.1 Total Bilirubin (0.2 - 1.3 mg/dL) 0.7 AST (17 - 59 U/L) 22 ALT (21 - 72 U/L) 32 Alkaline Phosphatase (< 127 U/L) 90 Troponin I (<0.11 ng/ml) 0.07 Total Protein (6.3 - 8.2 g/dL) 8.3 H Albumin (3.5 - 5.0 g/dL) 4.0 Globulin (1.9 - 4.2 gm/dL) 4.3 H Albumin/Globulin Ratio (1.1 - 2.2 %) 0.9 L Hematology CBC w Diff NO MAN DIFF REQ WBC (4.8 - 10.8 /CUMM) 12.7 H RBC (4.70 - 6.10 /CUMM) 2.58 L Hgb (14.0 - 18.0 G/DL) 7.6 L Hct (42 - 52 %) 23.4 L MCV (80.0 - 94.0 FL) 90.7 MCH (27.0 - 31.0 PG) 29.3 MCHC (33.0 - 37.0 G/DL) 32.3 L RDW (11.5 - 14.5 %) 21.2 H Plt Count (130 - 400 /CUMM) 263 MPV (7.4 - 10.4 FL) 7.9 Gran % (42.2 - 75.2 %) 89.9 H Lymphocytes % (20.5 - 51.1 %) 2.2 L Monocytes % (1.7 - 9.3 %) 7.6 Eosinophils % (0 - 5 %) 0.3 Basophils % (0.0 - 2.0 %) 0 Absolute Granulocytes (1.4 - 6.5 /CUMM) 11.4 H Absolute Lymphocytes (1.2 - 3.4 /CUMM) 0.3 L Absolute Monocytes (0.10 - 0.60 /CUMM) 1.0 H Absolute Eosinophils (0.0 - 0.7 /CUMM) 0 Absolute Basophils (0.0 - 0.2 /CUMM) 0 Toxicology Digoxin (0.8 - 2.0 ng/mL) 0.7 L Serum Alcohol (<10 MG/DL) < 10.0 Disposition Summary Disposition Principal Diagnosis: Mechanical fall Additional Diagnosis: Chest wall pain Discharge Disposition: SNF Discharge Instructions General Discharge Information Code Status: Full Code Patient's Diet: Diabetic Patient's Activity: As tolerated/work with physical therapy. Follow-Up Instructions/Appts: -Please follow up with your PCP within a week of discharge. -Please follow up pain management within a week of discharge. -Please return to the hospital if your symptoms not improve/worsen. Medications at Discharge Discharge Medications: Stop taking the following medications: Oxycodone HCl/Acetaminophen (Oxycodone-Acetaminophen 5-325) 5 MG-325 MG TABLET ORAL 2 x Daily as needed as needed for PAIN s/p shoulder surgery Qty = 60 Continue taking these medications: Lorazepam (Ativan) 0.5 MG TABLET 1 Tablet ORAL DAILY Comments: LAST TAKEN: 01/20/18 @ 9 AM Sertraline HCl (Sertraline HCl) 50 MG TABLET 50 Milligram ORAL DAILY Qty = 90 Comments: Last Taken: 01/20/18 Time: 9AM Ezetimibe (Zetia) 10 MG TABLET 10 Milligram ORAL DAILY Qty = 30 Comments: Last Taken: 01/20/18 Time: 9AM Ergocalciferol (Vitamin D2) (Vitamin D2) 50,000 UNIT CAPSULE 1 Tablet ORAL EVERY THURSDAY Qty = 11 Comments: NOT GIVEN IN HOSPITAL Ferrous Sulfate (Ferrous Sulfate) 325 MG (65 MG IRON) TABLET 2 Tablet ORAL TWICE DAILY Comments: NOT TAKEN IN HOSPITAL Ascorbate Calcium (Vitamin C) 500 MG TABLET 500 Milligram ORAL Every Morning Comments: NOT GIVEN IN HOSPITAL Aspirin (Ecotrin*) 81 MG TABLET.DR 1 Tablet ORAL Every Morning Comments: Last Taken: 01/20/18 Time: 9AM Clopidogrel Bisulfate (Plavix) 75 MG TABLET 1 Tablet ORAL DAILY Comments: Last Taken: 01/20/18 Time: 9AM Cyanocobalamin (Vitamin B-12) 1,000 MCG TABLET 1 Tablet ORAL DAILY Comments: LAST TAKEN: 01/20/18 @ 9 AM Levothyroxine Sodium (Synthroid) 25 MCG TABLET 0.025 Milligram ORAL DAILY BEFORE BREAKFAST Qty = 30 Instructions: . Comments: Last Taken: 01/20/18 Time: 6AM Budesonide/Formoterol Fumarate (Symbicort 160-4.5 Mcg Inhaler) 160 MCG-4.5 MCG/ ACTUATION HFA.AER.AD 2 Puff Inhale through mouth TWICE DAILY Comments: Last Taken: 01/20/18 Time: 9AM Fish Oil/Dha/Epa (Fish Oil 1,200 MG Fish Oil) 1,200 MG-144 MG-216 MG CAPSULE 1 Capsule ORAL DAILY Comments: NOT GIVEN IN HOSPITAL Albuterol Sulfate (Ventolin Hfa) 90 MCG HFA.AER.AD 1-2 Puff Inhale through mouth As Directed as needed for COPD Qty = 36 Comments: NOT GIVEN IN HOSPITAL Furosemide (Lasix) 40 MG TABLET 1 Tablet ORAL DAILY Qty = 60 Instructions: Please take as prescribed and follow up with your doctor. Comments: NOT TAKEN IN HOSPITAL Sitagliptin Phosphate (Januvia) 50 MG TABLET 1 Tablet ORAL DAILY Qty = 30 Instructions: Please take as prescribed and follow up with your doctor. Comments: NOT GIVEN IN HOSPITAL Insulin Glargine,Hum.rec.anlog (Lantus Solostar) 100 UNIT/ML (3 ML) INSULN.PEN 4 Unit Inject into fatty tissue Every night Comments: [place] GIVEN LAST : 01/20/18 @ 9 AM Digoxin (Lanoxin) 125 MCG TABLET 0.125 Milligram ORAL 5 PM Qty = 30 Instructions: . Comments: Last Taken: 12/30/17 Time: 4 PM Insulin Glargine,Hum.rec.anlog (Lantus Solostar) 100 UNIT/ML (3 ML) INSULN.PEN 4 Unit Inject into fatty tissue Every night Start taking the following new medications: Oxycodone HCl/Acetaminophen (Percocet 5-325 MG Tablet) 5 MG-325 MG TABLET 1 Tablet ORAL EVERY 6 HOURS NEEDED as needed for MODERATE-SEVERE PAIN Qty = 14 No Refills Instructions: PLEASE TAPER DOWN AFTER 2-3 DAYS. Melatonin (Melatonin) 5 MG TABLET 1 Tablet ORAL AT BEDTIME Qty = 30 No Refills Copies To: Enoch BROWN,Ruy Moss Attending MD Review Statement Documenting Attending: Anoop Husain MD Other Findings: The patient was seen on the day of discharge. He is currently taking a larger amount of Percocet than his home dose (bid at home, qid here). Please note that he has a low pain threshold and have high pain scores with no other evidence of significant pain (i.e. no tachycardia, etc.). He has a history of respiratory depression/CO2 retention due to excess narcotics and wish to avoid this situation. Would taper narcotics as able. He did not have respiratory depression on current qid dosage. The patient will be going to [facility] for STR.
--- NOTE | 2018-01-20 11:35 | Patient Discharge Instructions ---
Discharge Instructions General Discharge Information You were seen/treated for: Mechanical fall Special Instructions: -Please follow up with your PCP within a week of discharge. -Please follow up pain management within a week of discharge. -Please return to the hospital if your symptoms not improve/worsen. Diet Continue normal diet: Yes Recommended Diet: Diabetic Activity Additional ACTIVITY Info: As tolerated/work with physical therapy. Acute Coronary Syndrome Inclusion Criteria At DC or during hospital stay patient has or had the following: ACS DIAGNOSIS No Discharge Core Measures Meds if any: Prescribed or Continued at Discharge Meds if any: NOT Prescribed or Continued at Discharge Congestive Heart Failure Inclusion Criteria At DC or during hospital stay patient has or had the following: CHF DIAGNOSIS No Discharge Core Measures Meds if any: Prescribed or Continued at Discharge Meds if any: NOT Prescribed or Continued at Discharge Cerebrovascular accident Inclusion Criteria At DC or during hospital stay patient has or had the following: CVA/TIA Diagnosis No Discharge Core Measures Meds if any: Prescribed or Continued at Discharge Meds if any: NOT Prescribed or Continued at Discharge Venous thromboembolism Inclusion Criteria VTE Diagnosis No VTE Type NONE VTE Confirmed by (Test) NONE Discharge Core Measures - Per Current guidelines, there needs to be overlap - treatment for the first 5 days of Warfarin therapy. - If discharged on Warfarin prior to 5 days of - overlap therapy, the patient will need to be - assessed for post discharge needs including - *Post discharge parental anticoagulation - *Warfarin and/or parental anticoagulation education - *Follow up date to check INR post discharge At least 5 days overlap therapy as Inpatient No Meds if any: Prescribed or Continued at Discharge Note: Overlap Therapy is Warfarin and Anticoagulant Meds if any: NOT Prescribed or Continued at Discharge
[2018-01-20] MEDS ORDERED: MELATONIN5 M7 PO (11:40)
[2018-01-20] MEDS ORDERED: PERCOCET 5-3251 EACH PO ×2 (13:03→13:08)
[2018-01-20 14:06] VITALS: BP 112/58
== END 2018-01-20 17:05 ==
LOC: ERH 02:44 → ERHI 04:56 → 2NA 04:56 → ENRESERV 05:14 → 2NA 06:38
PROVIDERS: Emergency Medicine; Internal Medicine
DX: R07.89 Other chest pain (principal); F32.9 Major depressive disorder, single episode, unspecified; I50.22 Chronic systolic (congestive) heart failure; J44.9 Chronic obstructive pulmonary disease, unspecified; I13.0 Hypertensive heart and chronic kidney disease with heart failure and stage 1 through stage 4 chronic kidney disease, or unspecified chronic kidney disease; N18.9 Chronic kidney disease, unspecified; E11.22 Type 2 diabetes mellitus with diabetic chronic kidney disease; Z79.4 Long term (current) use of insulin; Z79.84 Long term (current) use of oral hypoglycemic drugs; E11.51 Type 2 diabetes mellitus with diabetic peripheral angiopathy without gangrene; I35.0 Nonrheumatic aortic (valve) stenosis; Z72.89 Other problems related to lifestyle; I25.10 Atherosclerotic heart disease of native coronary artery without angina pectoris; Z95.1 Presence of aortocoronary bypass graft; Z79.01 Long term (current) use of anticoagulants; E78.5 Hyperlipidemia, unspecified; I25.2 Old myocardial infarction; R32 Unspecified urinary incontinence; M86.672 Other chronic osteomyelitis, left ankle and foot; D50.0 Iron deficiency anemia secondary to blood loss (chronic); W18.30XA Fall on same level, unspecified, initial encounter; Y92.010 Kitchen of single-family (private) house as the place of occurrence of the external cause; E03.9 Hypothyroidism, unspecified; Z79.82 Long term (current) use of aspirin; Z79.899 Other long term (current) drug therapy
CPT/HCPCS: 1255; 36415; 36592; 74176; 82436; 86920; 93005; 93010; 96374; 97110-GO; 97162-GP; 97530-GP; G0378; G0480; G8978-GP; G8979-GP; J3490; P9016

== ENCOUNTER 2018-03-17 11:13 | Inpatient (IN) | payer OTHER, MEDICARE ==
[~2018-03-17] VITALS: Ht 177.8 cm; Wt 81.4 kg
[~2018-03-17 11:13] MED LIST changes: +MELATONIN5 M7 PO; +PERCOCET 7.5-31 EACH PO
--- NOTE | 2018-03-17 11:32 | ED GENERAL ADULT ---
History of Present Illness General Chief Complaint: Lower Extremity Problems Stated Complaint: BIBA, RIGHT LEG PAIN Source: patient, family Exam Limitations: no limitations Vital Signs & Intake/Output Vital Signs & Intake/Output Vital Signs Date Time Temp Pulse Resp B/P B/P Pulse O2 O2 Flow FiO2 Mean Ox Delivery Rate 03/17 1645 51 18 116/58 96 Room Air 03/17 1633 Room Air 03/17 1434 97.4 60 20 101/46 96 Room Air 03/17 1140 98.2 60 20 109/51 95 Room Air Allergies Coded Allergies: No Known Allergies (11/13/17) Triage Nurses Notes Reviewed? yes Onset: Abrupt Duration: day(s): Timing: recent history HPI: 03/17/18 12:[address] Gage vascular [phone] (Brock Hodge DO) Reconcile Medications Albuterol Sulfate (Ventolin Hfa) 90 MCG HFA.AER.AD 1-2 PUF INH AD PRN COPD ( Reported) Ascorbate Calcium (Vitamin C) 500 MG TABLET 500 MG PO QAM SUPPLEMENT ( Reported) Aspirin (Ecotrin*) 81 MG TABLET.DR 1 TAB PO QAM HEART/BLOOD (Reported) Budesonide/Formoterol Fumarate (Symbicort 160-4.5 Mcg Inhaler) 160 MCG-4.5 MCG/ ACTUATION HFA.AER.AD 2 PUF INH BID BREATHING PROBLEMS (Reported) Clopidogrel Bisulfate (Plavix) 75 MG TABLET 1 TAB PO DAILY BLOOD THINNER ( Reported) Cyanocobalamin (Vitamin B-12) 1,000 MCG TABLET 1 TAB PO DAILY SUPPLEMENT ( Reported) Digoxin (Lanoxin) 125 MCG TABLET 0.125 MG PO 1700 HFrEF . Ergocalciferol (Vitamin D2) (Vitamin D2) 50,000 UNIT CAPSULE 1 TAB PO QSUN SUPPLEMENT (Reported) Ezetimibe (Zetia) 10 MG TABLET 10 MG PO DAILY CHOLESTEROL (Reported) Ferrous Sulfate 325 MG (65 MG IRON) TABLET 1 TAB PO TID IRON, VITAMIN ( Reported) Fish Oil/Dha/Epa (Fish Oil 1,200 MG Fish Oil) 1,200 MG-144 MG-216 MG CAPSULE 1 CAP PO DAILY SUPPLEMENT (Reported) Furosemide (Lasix) 40 MG TABLET 1 TAB PO DAILY CHF Please take as prescribed and follow up with your doctor. Insulin Glargine,Hum.rec.anlog (Lantus Solostar) 100 UNIT/ML (3 ML) INSULN.PEN 4 UNIT SC QPM dm (Reported) Levothyroxine Sodium (Synthroid) 25 MCG TABLET 0.025 MG PO DAILY AC HYPOTHYROIDISM . Oxycodone HCl/Acetaminophen (Percocet 7.5-325 MG Tablet) 7.5 MG-325 MG TABLET 1 TAB PO BID PAIN (Reported) Sertraline HCl 50 MG TABLET 50 MG PO DAILY DEPRESSION (Reported) Sitagliptin Phosphate (Januvia) 100 MG TABLET 1 TAB PO DAILY DIABETES ( Reported) (Lenin BROWN,Vonnie Lynch) Past History Travel History Traveled to [place] past 21 day No Medical History Any Pertinent Medical History? see below for history Neurological: GAIT ABDNORMALITY WEAKNESS EENT: NONE Cardiovascular: aortic stenosis, CAD, CHF, hypertension, hyperlipidemia, NSTEMI, PVD Respiratory: NONE Gastrointestinal: appt for pill cam cancelled for today due to ED visit gi bleed Hepatic: NONE Renal: urinary incontinence, CKD Musculoskeletal: CHRONIC OSTEOMYLITIS LFT FOOT- TOES AMP X5 RGHT FOOT- TOES AMP X4 Psychiatric: depression Endocrine: diabetes Blood Disorders: anemia with occ tranfusions Cancer(s): NONE DOCUMENT SPECIALIST/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 amputation of 9 toes PTCA ESWL by Dr. Ledesma toe amputations bilaterally aortic valve, LE stents Psychosocial History Who do you live with Spouse Services at Home Nursing What is your primary language Bulgarian Family History Family History, If Any: FATHER (CAD). , Age 40-50; Cause: CAD (coronary artery disease). MOTHER (Pancreatic cancer). BROTHER (HTN). Hx Contributory? No (Brock Hodge DO) Review of Systems Review of Systems Constitutional: Denies: fever. EENTM: Reports: no symptoms. Respiratory: Denies: short of breath. Cardiovascular: Denies: chest pain. GI: Denies: abdominal pain. Genitourinary: Reports: no symptoms. Musculoskeletal: Reports: see HPI. Skin: Reports: see HPI. Neurological/Psychological: Reports: see HPI. Hematologic/Endocrine: Reports: see HPI. (Brock Hodge DO) Physical Exam Physical Exam General Appearance: alert, awake, anxious, moderate distress Head: atraumatic, normal appearance Eyes: Bilateral: normal appearance, PERRL, EOMI. Ears, Nose, Throat: normal pharynx, normal ENT inspection Neck: normal inspection Respiratory: normal breath sounds, chest non-tender, no respiratory distress Cardiovascular: regular rate/rhythm Peripheral Pulses: 0 dorsalis pedis (R), 3+ dorsalis pedis (L) Gastrointestinal: non-tender Back: decreased range of motion Extremities: pedal edema, tenderness Neurologic/Psych: no motor/sensory deficits, awake, alert, oriented x 3 Skin: rash (staisis dermatitis LE) Comments: The patient has exquisite tenderness to the right lower extremity. He has no right dorsalis pedis pulse. He has amputations of the toes on both feet. Core Measures ACS in differential dx? No CVA/TIA Diagnosis: No Sepsis Present: No Sepsis Focused Exam Completed? No (Brock Hodge DO) Progress Differential Diagnoses I considered the following diagnoses in my evaluation of the patient: [Arterial occlusion, DVT, peripheral vascular disease, stasis dermatitis, dependent edema, compartment syndrome, necrotizing fasciitis] Plan of Care: Orders Procedure Date/time Status Heart Healthy Diet 03/[address] in observation 03/17 1743 Active ED Holding Orders 03/17 1743 Active Vital Signs 03/17 1743 Active Code Status 03/17 1743 Active ARTERIAL STUDY LOWER W/EXER 03/17 1345 Active PROTHROMBIN TIME 03/17 1239 Complete D-DIMER 03/17 1239 Complete COMPREHENSIVE METABOLIC PANEL 03/17 1239 Complete CBC WITHOUT DIFFERENTIAL 03/17 1239 Complete EKG 03/17 1239 Active Current Medications Sig/Salome Start time Last Medication Dose Stop Time Status Admin Sodium Chloride 1,000 ML ONCE ONE 03/17 1245 AC 03/17 (Normal Saline 0.9%) 03/17 1924 1443 Laboratory Tests 03/17/18 1430: Anion Gap 12, Estimated GFR 29 L, BUN/Creatinine Ratio 37.8 H, Glucose 135 H, Calcium 9.0, Total Bilirubin 0.7, AST 143 H, ALT 324 H, Alkaline Phosphatase 109, Total Protein 7.3, Albumin 3.1 L, Globulin 4.2, Albumin/Globulin Ratio 0.7 L, PT 15.5 H, INR 1.42 H, D-Dimer High Sensitivty 2176 H, CBC w Diff NO MAN DIFF REQ, RBC 2.61 L, MCV 91.0, MCH 29.9, MCHC 32.8 L, RDW 21.4 H, MPV 8.3, Gran % 89.8 H, Lymphocytes % 2.5 L, Monocytes % 7.6, Eosinophils % 0.1, Basophils % 0, Absolute Granulocytes 11.7 H, Absolute Lymphocytes 0.3 L, Absolute Monocytes 1.0 H, Absolute Eosinophils 0, Absolute Basophils 0 Initial ED EKG: none (Brock Hodge DO) Departure Departure Disposition: STILL A PATIENT Condition: Stable Clinical Impression Primary Impression: Peripheral vascular disease Referrals: Ruy Kendall MD (PCP/Family) Departure Forms: Customer Survey General Discharge Information (Brock Hodge DO) Observation Note Spoke With: Anoop Husain MD Physician Advisor Notified: VONNIE PHELPS MD Place Patient In: Non-ED OBS Care Area Rationale for Observation: My rational for observation is as follows [IV pain control, vascular consultation, he will need surgery in the near future.]. (Vonnie Phelps MD) Critical Care Note Critical Care Note Critical Care Time: 30-74 min (Brock Hodge DO)
[2018-03-17 14:46] LABS: ABSOLUTE BASOPHIL COUNT 0 /CUMM (0.0-0.2); ABSOLUTE EOSINOPHIL COUNT 0 /CUMM (0.0-0.7); ABSOLUTE GRANULOCYTE CT 11.7 /CUMM (1.4-6.5); ABSOLUTE LYMPH COUNT 0.3 /CUMM (1.2-3.4); BASOPHIL % 0 % (0.0-2.0); EOSINOPHIL % 0.1 % (0-5); HEMATOCRIT 23.8 % (42-52); MEAN CORPUSCULAR HGB 29.9 PG (27.0-31.0); MEAN CORPUSCULAR HGB CONC 32.8 G/DL (33.0-37.0); MEAN PLATELET VOLUME 8.3 FL (7.4-10.4); PLATELET COUNT 157 /CUMM (130-400); RBC DISTRIBUTION WIDTH 21.4 % (11.5-14.5); RED BLOOD CELL CT 2.61 /CUMM (4.70-6.10)
[2018-03-17 14:50] LABS: PT 15.5 SEC (9.4-12.5)
[2018-03-17] MEDS ORDERED: JANUVIA100 M1 PO (15:05)
[2018-03-17 15:07] LABS: GRANULOCYTE % 89.8 % (42.2-75.2)
--- NOTE | 2018-03-17 17:03 | ULTRASOUND REPORT ---
EXAMINATION: US DUPLEX LOWER EXTREMITY ARTERY/GRAFT LIMITED, RIGHT CLINICAL INFORMATION: 67-year-old male with concern for arterial occlusion in the right lower extremity COMPARISON: None TECHNIQUE: Real-time ultrasound and Doppler techniques (integrating B-mode 2-D vascular images, Doppler spectral analysis and color flow Doppler imaging) were utilized to interrogate the right lower extremity. FINDINGS: The right common femoral, superficial femoral and popliteal arteries are patent. The entire superficial femoral artery is stented. Monophasic waveforms are seen throughout these vessels. The profunda femoral artery appears occluded as there is no color or spectral Doppler flow. Increased peak systolic velocity in the proximal superficial femoral artery just distal to its origin with peak systolic velocity of greater than 400 cm/s suggestive of a severe stenosis. The peroneal artery was not visualized. Very limited evaluation of the anterior tibial and posterior tibial arteries which appear to demonstrate monophasic waveforms with low velocities of 5 cm/s. ADDITIONAL FINDINGS: Enlarged lymph nodes are seen within the right groin measuring up to 2.3 x 1.6 cm.. IMPRESSION: Probable occluded profunda femoral artery. The common femoral, superficial femoral and popliteal arteries are patent but demonstrate abnormal monophasic waveforms. Stents are identified throughout the entirety of the superficial femoral artery with findings consistent with a severe stenosis in the proximal superficial femoral artery. Limited evaluation of the below-knee vessels. Consider dedicated CTA for further evaluation. Enlarged right groin lymph nodes.
--- NOTE | 2018-03-17 18:16 | History & Physical ---
Rebekah BROWN,[facility] 03/17/18 0745: General Information and HPI MD Statement: I have seen and personally examined VONNIE ALMANZAR and documented this H&P. The patient is a 67 year old M who presented with a patient stated chief complaint of []. Source of Information: patient Exam Limitations: poor historian History of Present Illness: Mr. Almanzar is a 67-year-old male with PMH of aortic stenosis, CAD s/p CABG (2016), CHF (last Echo 12/30/2017) with LVEF of 40-45% and anterior wall akinsis, hypertension, hyperlipidemia, NSTEMI, PVD, urinary incontinence, CKD, and chronic osteomyelities w/ toes amputation who presented to the ED with complains of progressive worsening right lower leg pain. Patient states that sometime last week he had pain in his left leg and he underwent a procedure on his left leg by his vascular doctor Dr Gage. Soon afterwards, the next day he started experiencing pain in his right leg. He describes his pain as sharp, 10/10 in severity, radiating down his leg. He has been using a wheelchair and walker to ambulate and despite that had two falls a day after the surgery. He did not hit his head or lose consciousness with the falls. He has been taking Percocet ( prescribed by pain management) with relief in his symptoms. However, his pain had been progressively worsening to the point where he had difficulty ambulating. He called Dr Gage who recommended him to go to the ED for further management of his pain. Allergies/Medications Allergies: Coded Allergies: No Known Allergies (11/13/17) Home Med list Albuterol Sulfate (Ventolin Hfa) 90 MCG HFA.AER.AD 1-2 PUF INH AD PRN COPD ( Reported) Ascorbate Calcium (Vitamin C) 500 MG TABLET 500 MG PO QAM SUPPLEMENT ( Reported) Aspirin (Ecotrin*) 81 MG TABLET. 1 TAB PO QAM HEART/BLOOD (Reported) Atorvastatin Calcium 80 MG TABLET 1 TAB PO DAILY PVD (Reported) Budesonide/Formoterol Fumarate (Symbicort 160-4.5 Mcg Inhaler) 160 MCG-4.5 MCG/ ACTUATION HFA.AER.AD 2 PUF INH BID BREATHING PROBLEMS (Reported) Clopidogrel Bisulfate (Plavix) 75 MG TABLET 1 TAB PO DAILY BLOOD THINNER ( Reported) Cyanocobalamin (Vitamin B-12) 1,000 MCG TABLET 1 TAB PO DAILY SUPPLEMENT ( Reported) Digoxin (Lanoxin) 125 MCG TABLET 0.125 MG PO 1700 HFrEF . Ergocalciferol (Vitamin D2) (Vitamin D2) 50,000 UNIT CAPSULE 1 TAB PO QSUN SUPPLEMENT (Reported) Ezetimibe (Zetia) 10 MG TABLET 10 MG PO DAILY CHOLESTEROL (Reported) Ferrous Sulfate 325 MG (65 MG IRON) TABLET 1 TAB PO TID IRON, VITAMIN ( Reported) Fish Oil/Dha/Epa (Fish Oil 1,200 MG Fish Oil) 1,200 MG-144 MG-216 MG CAPSULE 1 CAP PO DAILY SUPPLEMENT (Reported) Furosemide (Lasix) 40 MG TABLET 1 TAB PO DAILY CHF Please take as prescribed and follow up with your doctor. Insulin Glargine,Hum.rec.anlog (Lantus Solostar) 100 UNIT/ML (3 ML) INSULN.PEN 4 UNIT SC QPM dm (Reported) Levothyroxine Sodium (Synthroid) 25 MCG TABLET 0.025 MG PO DAILY AC HYPOTHYROIDISM . Oxycodone HCl/Acetaminophen (Percocet 7.5-325 MG Tablet) 7.5 MG-325 MG TABLET 1 TAB PO BID PAIN (Reported) Sertraline HCl 50 MG TABLET 50 MG PO DAILY DEPRESSION (Reported) Sitagliptin Phosphate (Januvia) 100 MG TABLET 1 TAB PO DAILY DIABETES ( Reported) Past History Travel History Traveled to [place] past 21 day No Medical History Neurological: GAIT ABDNORMALITY WEAKNESS EENT: NONE Cardiovascular: aortic stenosis, CAD, CHF, hypertension, hyperlipidemia, NSTEMI, PVD Respiratory: NONE Gastrointestinal: appt for pill cam cancelled for today due to ED visit gi bleed Hepatic: NONE Renal: urinary incontinence, CKD Musculoskeletal: CHRONIC OSTEOMYLITIS LFT FOOT- TOES AMP X5 RGHT FOOT- TOES AMP X4 Psychiatric: depression Endocrine: diabetes Blood Disorders: anemia with occ tranfusions Cancer(s): NONE 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 amputation of 9 toes PTCA ESWL by Dr. Ledesma toe amputations bilaterally aortic valve, LE stents Past Family/Social History Family History Relations & Conditions if any FATHER (CAD). , Age 40-50; Cause: CAD (coronary artery disease). MOTHER (Pancreatic cancer). BROTHER (HTN). Psychosocial History Who Do You Live With? spouse Services at Home: Nursing Primary Language: Italian ETOH Use: denies use Illicit Drug Use: denies illicit drug use Functional Ability ADLs Independent: dressing, eating, toileting, bathing. Ambulation: independent IADLs Independent: shopping, housework, finances, food prep, telephone, transportation , medication admin. Review of Systems Review of Systems Constitutional: Denies: chills, fever. EENTM: Reports: no symptoms. Cardiovascular: Denies: chest pain, palpitations. Respiratory: Reports: no symptoms. GI: Reports: no symptoms. Genitourinary: Reports: no symptoms. Musculoskeletal: Reports: muscle pain. Skin: Reports: change in skin color. Neurological/Psychological: Reports: no symptoms. Exam & Diagnostic Data Last 24 Hrs of Vital Signs/I&O Vital Signs Date Time Temp Pulse Resp B/P B/P Pulse O2 O2 Flow FiO2 Mean Ox Delivery Rate 03/17 1645 51 18 116/58 96 Room Air 03/17 1633 Room Air 03/17 1434 97.4 60 20 101/46 96 Room Air 03/17 1140 98.2 60 20 109/51 95 Room Air Intake & Output 03/17 1600 03/17 0800 03/17 0000 Intake Total 0 Output Total Balance 0 Intake, Oral 0 Physical Exam General Appearance Alert, Oriented X3, Cooperative, Mild Distress Skin No Rashes, No Breakdown Skin Temp/Moisture Exam: Cool/Dry Sepsis Skin Exam (color): Normal for Ethnicity HEENT Atraumatic Cardiovascular Normal S1, Normal S2, systolic ejection murmur Lungs Clear to Auscultation, Normal Air Movement Abdomen Soft, No Tenderness Neurological Normal Speech Extremities right leg tender to palpation s/p amputation of toes. bilateral stasis skin changes of lower extremities with blisters., s/p toe amputations of left foot Vascular absent dorsalis pedis with palpation Last 24 Hrs of Labs/Sadi: Laboratory Tests 03/17/18 1430: Anion Gap 12, Estimated GFR 29 L, BUN/Creatinine Ratio 37.8 H, Glucose 135 H, Calcium 9.0, Total Bilirubin 0.7, AST 143 H, ALT 324 H, Alkaline Phosphatase 109, Total Protein 7.3, Albumin 3.1 L, Globulin 4.2, Albumin/Globulin Ratio 0.7 L, PT 15.5 H, INR 1.42 H, D-Dimer High Sensitivty 2176 H, CBC w Diff NO MAN DIFF REQ, RBC 2.61 L, MCV 91.0, MCH 29.9, MCHC 32.8 L, RDW 21.4 H, MPV 8.3, Gran % 89.8 H, Lymphocytes % 2.5 L, Monocytes % 7.6, Eosinophils % 0.1, Basophils % 0, Absolute Granulocytes 11.7 H, Absolute Lymphocytes 0.3 L, Absolute Monocytes 1.0 H, Absolute Eosinophils 0, Absolute Basophils 0 Assessment/Plan Assessment: Mr. Almanzar is a 67-year-old male with PMH of aortic stenosis, CAD s/p CABG (2016), CHF (last Echo 12/30/2017) with LVEF of 40-45% and anterior wall akinsis, hypertension, hyperlipidemia, NSTEMI, PVD, urinary incontinence, CKD, and chronic osteomyelities w/ toes amputation who presented to the ED with complains of progressive worsening right lower leg pain. Assessment: 1. Severe stenosis in the proximal superficial femoral artery. 2. GRECIA on CKD 3. Transaminitis 4. History of Hypertension, Hyperlipidemia 5. History of PVD Plan: * Admit patient in obs to general medicine floor. * His Doppler U/S shows probable occluded profunda femoral artery and severe stenosis in the proximal superficial femoral artery. * Vascular consult for possible bypass tomorrow. * Pain control with Percocet (mild) , IV morphine (moderate) and dilaudidd ( severe). * Continue all home meds: aspirin, plavix, sertraline, levothyroxine, albuterol, symbicort. Hold oral hypoglycemics. * Insulin SS with Accucheks * Levemir 4units QPM * Diet: Heart Healthy * DVT Prophylaxis: SC Heparin * Code: Full Code As Ranked By This Provider Problem List: 1. Peripheral vascular disease Core Measures/Misc (06/21) Acute Coronary Syndrome ACS Diagnosis: No Congestive Heart Failure Congestive Heart Failure Diagnosis No Cerebrovascular Accident CVA/TIA Diagnosis: No VTE (View Protocol) VTE Risk Factors Age>40 No Mechanical VTE Prophylaxis d/t N/A MechProphylax Ordered No VTE Pharm Prophylaxis d/t NA PharmProphylax ordered Sepsis (View protocol) Sepsis Present: No If YES complete Sepsis Event Note If YES complete Sepsis Event Note Florence BROWNColby 03/17/18 4047: Core Measures/Misc (06/21) Sepsis (View protocol) If YES complete Sepsis Event Note If YES complete Sepsis Event Note Resident Review Statement Resident Statement: examined this patient, discussed with sports management internship, agreed with sports management internship, reviewed EMR data (avail) Other Findings: History of Present Illness 67 year old man with past medical history of CAD s/p CABG, aortic stenosis, HFrEF (LVEF 40-45%), hypertension, hyperlipidemia, NSTEMI, PVD, CKD, Depression, insulin-dependent diabetes mellitus, and chronic osteomyelitis s/p multiple toe amputations sent in by his vascular surgeon for evaluation. Last patient reports the he had an "aneurysm" removed from his left thigh. He reports that he had pain in that area since the day prior to the procedure. The was was increased the day after the procedure. The pain progressively worsened to the point that he could not walk which now included his right leg. He reports "collapsing" twice secondary to the bilateral leg pain. He reports taking percocet for his pain with good relief. He reports standing and movement worsens his symptoms. He contacted his vascular surgeon Dr. Gage ([phone]) whom referred him to the ED. Social history He ambulates with assistance of a cane. He reports smoking 1/2 ppd for at least 4 years. He denies any alcohol or recreational drug use. Review of Systems He otherwise denies any fever, chills, dizziness, lightheadedness, chest pain, shortness of breath, palpitations, abdominal pain, constipation, urinary symptoms, or joint pain. Objective Vitals Temp 97.4-98.2, HR 51-60, Physical Exam -General: ill appearing elderly man in no acute distress -HEENT: NCAT, PERRL, EOMI, anicteric sclera, moist mucous membranes -Neck: Supple, no JVD, trachea midline -Cardio: 2/6 THOMAS in aortic area, 2/6 TR murmur; regular rate and rhythm -Pulm: Clear to auscultation bilaterally -Abdomen: Soft, Non-tender, non-distended, bowel sounds intact -Neuro: Awake and alert, CN II-XII grossly intact -Extremities: diminished / faint peripheral pulses, chronic lower extremity stasis dermatitis, various blisters in various stages of healing with scant clear drainage Labs / Imaging / Studies -CBC: WBC 13.0, HGB 7.8, HCT 23.8, PLT 157 -BMP: Na 143, K 4.5, Cl 106, CO2 25, BUN 87, Cr 2.3, AG 12, Glucose 135 -LFT: AST 143, ALT 324, ALP 109 -Misc: D-Dimer 2176, INR 1.42 -RLE Duplex: * Probable occluded profunda femoral artery. The common femoral, superficial femoral and popliteal arteries are patent but demonstrate abnormal monophasic waveforms. Stents are identified throughout the entirety of the superficial femoral artery with findings consistent with a severe stenosis in the proximal superficial femoral artery. Limited evaluation of the below-knee vessels. Consider dedicated CTA for further evaluation. -Echo 12/30/17: 1. Mild to moderately decreased EF of 40-45% with anterior wall akinesis 2. Mild left atrial enlargement. 3. Mild mitral regurgitation. 4. Moderate tricuspid regurgitaiton. 5. Mild stenosis of a bioprosthetic aortic valve. Assessment 67 year old man with multiple medical problems significant for PAD/PVD s/p aneurysm repair last week, CAD s/p CABG, HFrEF, hypertension, hyperlipidemia, insulin-dependent diabetes mellitus, and tobacco use sent in by his vascular surgeon for leg pain. Patient reports that he pain is currently well controlled after receiving intravenous dilaudid. Vitals signs are within normal limits. Physical exam is significant for his known cardiac murmur and moderate right lower extremity tenderness with open blisters in various stages of healthy with faint barely detectable pulses. Labs including CBC, BMP, LFTs, are significant for WBC 13.0, H/H 7.8/23.8, BUN/Cr 87/2.3, and elevated LFTs. DDimer is 2176. RLE Duplex demonstrated an occluded profunda femoral artery. Clinically patient appears to have intractible lower extremity pain secondary to claudication in the context of severe peripheral arterial/venous disease and multiple severe comorbidities including smoking. Patient will be placed on general medicine under observation for pain control and vascular surgery evaluation tomorrow. Problem List -Severe PAD/PVD with occlusive right femoral profunda artery -S/p left femoral aneurysm repair -Transaminitis -CAD s/p CABG -Aortic stenosis -HFrEF (LVEF 40-45%) -Hypertension -Hyperlipidemia -NSTEMI -PVD -CKD -Depression -Insulin-dependent diabetes mellitus -Chronic osteomyelitis s/p multiple toe amputations Plan -Place under observation on general medicine -Accuchecks with Novolog SSI -Continue home meds: albuterol, aspirin,atorvastatin, supplements, symbicort, plavix, digoxin, ezetimibe, iron, levemir, levothyroxin, sertraline -Vascular surgery consult in AM -Monitor LFTs -Pain control with percocet / morphine / dilaudid -Diabetic Diet -DVT PPx with subcutaneous heparin -FULL CODE Anoop Husain MD 03/17/18 7055: Core Measures/Misc (06/21) Sepsis (View protocol) If YES complete Sepsis Event Note If YES complete Sepsis Event Note Attending MD Review Statement Attending Statement Attending MD Statement: examined this patient, discuss w/resident/PA/YARDAGE ESTIMATOR, agreed w/resident/PA/YARDAGE ESTIMATOR, reviewed EMR data (avail), discussed with nursing, reviewed images, amended to note Attending Assessment/Plan: The patient is a 67 yo male with h/o , CAD (s/p NSTEMI & CABG 08/21), CHF (EF 40-45%), HTN, COPD, HL, CKD and severe PVD (s/p amputations) who presented in the ED with progressive increased in bilateral LE pain (R>L). He has had some mechanical falls. Followed by vascular (Dr.0 Gage) who was going to see him as OP tomorrow and perhaps schedule another procedure. Due to intractable pain not responding to po pain meds, he presented in the ED. Had good relief from IV Dilaudid. ED spoke with Dr. Gage who suggested bringing into hospital to control pain and consider another procedure. Of note, the patient continues to smoke. Physical Exam: VS: T 97.4, P 60, R 20, BP 109/51, PO 95% RA HEENT: eyes- PERRLA, EOMI jillian- dry mucosa Neck: no JVD/bruits Chest: diminished breath sounds bilaterally, however clear Cor: RRR nl S1, S2, + 3/6 sys murm Abd: BS+, soft, NT Ext: RLE- very tender even with light touch (s/p toe amputations), mild erythema in pre-tibial areas bilateral. Absent pulses (able to detect with doppler) Neuro: alert & oriented x 3 JEFFERSON, non-focal Labs/Tests- as above Impression/Plan: #Intractable Leg Pains (R>L) - c/w severe PVD. Arterial US is similar to prior. Not responding to po pain meds. Plan: Bring in as OBServation patient to control pain. Vascular surgery consult with Dr. Gage in am. IV Dilaudid for pain at present. Will calculate RCRI as may require surgery during this admission. Continue Atorvastatin, ASA, Plavix, Digoxin. #DM2- as above, patient taking insulin at home. sugars decreased with insulin in ED. Plan: Follow glucose levels closely and adjust insulin. #Hypothyroid- on Levothyroxine. Clinically euthyroid. Plan: Continue Levothyroxine. #COPD- lungs clear, diminished breath sounds. Plan: Continue Symbicort. May need Albuterol PRN.
[2018-03-17] MEDS ORDERED: ATORVASTATIN CA80 M1 PO (19:35)
[2018-03-17 19:51] VITALS: BP 112/58
[2018-03-17 21:51] VITALS: BP 102/50
[2018-03-18 06:57] VITALS: BP 106/52
--- NOTE | 2018-03-18 07:20 | PN-Observation ---
See Addendum Observation Note Observation Note _ I have personally examined VONNIE ALMANZAR. him disposition is uncertain at this time. Before a determination can be made, he requires continued observation for the following reasons [to be made a full admission]. Assessment/Plan Medical Assessment: Mr. Almanzar is a 67-year-old male with PMH of aortic stenosis, CAD s/p CABG (2016), CHF (last Echo 12/30/2017) with LVEF of 40-45% and anterior wall akinsis, hypertension, hyperlipidemia, NSTEMI, PVD, urinary incontinence, CKD, and chronic osteomyelities w/ toes amputation who presented to the ED with complains of progressive worsening right lower leg pain. Assessment: 1. Severe stenosis in the proximal superficial femoral artery. 2. GRECIA on CKD 3. Transaminitis 4. Anemia 5. History of PVD 6. History of Hypertension, Hyperlipidemia Plan: * Patient will be a full admission as he will require vascular intervention. * His Doppler U/S shows probable occluded profunda femoral artery and severe stenosis in the proximal superficial femoral artery. * Start IV Heparin drip. * He will require right common femoral endarterectomy which is scheduled for Thursday. * His H&H has dropped today. Will transfuse 1 unit pRBC * Podiatry consult for his feet. * He likely has GRECIA on CKD. Will continue hydration with NS @ 100ml/hr * His LFTs are trending down. Unclear about the elevation. * Pain control with Percocet (mild) , IV morphine (moderate) and dilaudidd ( severe). * Continue all home meds: aspirin, plavix, sertraline, levothyroxine, albuterol, symbicort. Hold oral hypoglycemics and Lasix. * Insulin SS with Accucheks * Levemir 4units QPM * Diet: Heart Healthy * DVT Prophylaxis: IV Heparin * Code: Full Code Problem List: 1. Peripheral vascular disease Subjective Follow-up For: Right Leg pain Subjective: patient seen and examined. Still complains of significant pain in his right leg and that the dilaudidd tends to help the most for his pain. Review of Systems Constitutional: Reports: no symptoms. Objective Last 24 Hrs of Vital Signs/I&O Vital Signs Date Time Temp Pulse Resp B/P B/P Pulse O2 O2 Flow FiO2 Mean Ox Delivery Rate 06/14 0657 98.1 59 20 106/52 96 Room Air 03/17 2151 98.0 62 20 102/50 96 Room Air 03/17 1951 97.6 62 20 112/58 95 Room Air 03/17 1645 51 18 116/58 96 Room Air 03/17 1633 Room Air 03/17 1434 97.4 60 20 101/46 96 Room Air 03/17 1140 98.2 60 20 109/51 95 Room Air Intake & Output 03/18 0800 03/18 0000 03/17 1600 Intake Total 200 240 0 Output Total 250 Balance 200 -10 0 Intake, Oral 200 240 0 Number 0 Bowel Movements Output, Urine 250 Patient 180 lb Weight Physical Exam General Appearance: Alert, Oriented X3, Cooperative, Mild Distress Skin: No Rashes, No Breakdown Skin Temp/Moisture Exam: Cool/Dry (right foot) Sepsis Skin Exam (color): Normal for Ethnicity HEENT: Atraumatic Cardiovascular: Normal S1, Normal S2, THOMAS Lungs: Clear to Auscultation, Normal Air Movement Abdomen: Soft, No Tenderness Neurological: Normal Speech Extremities: bilateral lower extremity edema with blisters. Right foot has absent pulses with bluish discoloration s/p ampuation of 4 toes. Left foot s/p amputation of toes Current Medications: Current Medications Sig/Salome Start time Last Medication Dose Route Stop Time Status Admin Albuterol Sulfate See Dose Q4-6 PRN PRN 03/17 1945 AC Insts (1) INH Ascorbic Acid 500 MG DAILY 03/18 900 AC 03/18 PO 0933 Aspirin Buffered 81 MG QAM 03/18 09 AC 03/18 PO 0932 Atorvastatin Calcium 80 MG 17003/18 1700 AC PO Budesonide/ 2 PUF BID 03/17 2100 AC 03/18 Formoterol Fumarate INH 0933 Clopidogrel Bisulfate 75 MG DAILY 03/18 09 AC 03/18 PO 0933 Cyanocobalamin 1,000 MCG DAILY 03/18 09 AC 03/18 PO 0933 Digoxin 0.125 MG 1700 03/18 1700 AC PO Ezetimibe 10 MG DAILY 03/18 09 AC 03/18 PO 0933 Ferrous Sulfate 325 MG TID 03/17 2100 AC 03/18 PO 1415 Furosemide 40 MG DAILY 03/18 09 DC 03/18 PO 0933 Heparin Sodium 25,000 UNIT Q24H 03/18 1430 AC (Porcine) IV Sodium Chloride 500 ML Heparin Sodium 5,000 UNIT Q8 03/18 0600 DC 03/18 (Porcine) SC 0526 Hydromorphone HCl 1 MG Q6 PRN 03/17 194 AC 03/18 IV 0234 Insulin Aspart 0 TIDAC 03/18 0800 AC SC Insulin Detemir 4 UNITS QPM 03/17 2100 AC 03/17 SC 2140 Levothyroxine Sodium 0.025 MG DAILY AC 03/18 0700 AC 03/18 PO 0526 Morphine Sulfate 2 MG Q6P PRN 03/17 194 CAN IV Morphine Sulfate 2 MG Q6P PRN 03/17 1945 AC 03/18 IV 0759 Oxycodone/ 2 TAB Q6P PRN 03/17 1945 AC 03/18 Acetaminophen PO 1415 Sertraline HCl 50 MG DAILY 03/18 0900 AC 03/18 PO 0933 Sodium Chloride 1,000 ML Q10H 03/18 1100 AC 03/18 IV 1104 Sodium Chloride 1,000 ML ONCE ONE 03/17 1245 DC 03/17 IV 03/17 1924 1443 Dose Instructions: (1)Albuterol Sulfate: 1-2 PUF
[2018-03-18 08:00] LABS: ABSOLUTE BASOPHIL COUNT 0 /CUMM (0.0-0.2); ABSOLUTE EOSINOPHIL COUNT 0.1 /CUMM (0.0-0.7); BASOPHIL % 0 % (0.0-2.0); EOSINOPHIL % 0.5 % (0-5); RED BLOOD CELL CT 2.39 /CUMM (4.70-6.10)
[2018-03-18 08:43] LABS: ABSOLUTE GRANULOCYTE CT 10.3 /CUMM (1.4-6.5); ABSOLUTE LYMPH COUNT 0.5 /CUMM (1.2-3.4); ABSOLUTE MONOCYTE COUNT 1.1 /CUMM (0.10-0.60); HEMATOCRIT 21.8 % (42-52); MEAN CORPUSCULAR HGB 29.5 PG (27.0-31.0); MEAN CORPUSCULAR HGB CONC 32.3 G/DL (33.0-37.0); MEAN CORPUSCULAR VOLUME 91.4 FL (80.0-94.0); MEAN PLATELET VOLUME 8.4 FL (7.4-10.4); PLATELET COUNT 157 /CUMM (130-400); RBC DISTRIBUTION WIDTH 22.8 % (11.5-14.5)
[2018-03-18 09:44] LABS: GRANULOCYTE % 86.2 % (42.2-75.2)
[2018-03-18 10:10] VITALS: BP 122/40
--- NOTE | 2018-03-18 13:39 | Cons- Vascular Surgery ---
See Addendum General Information and HPI Consulting Request Date of Consult: 03/18/18 Requested By: Anoop Husain MD Reason for Consult: right foot rest pain Source of Information: patient Exam Limitations: no limitations History of Present Illness: 67 y/o m w/ mmp including cad s/p cabg, aortic stenosis, ckd, pad s/p left fem pt bypass, bilateral toe amps. pt is s/p left leg angio with viabahn to the previous bypass graft in area of pseudoaneursym. this was done last week by Dr long and during the procedure he shot an angiogram of the right common femoral artery which showed significant distal common femoral disease extending into the profunda. Pt has rest pain of the right leg and was admitted to the hospital for pain control. pt seen and examined right foot is cooler than left with blistering along dorsal foot. He has decreased sensation of the foot. There is cap refill. Allergies/Medications Allergies: Coded Allergies: No Known Allergies (11/13/17) Home Med List: Albuterol Sulfate (Ventolin Hfa) 90 MCG HFA.AER.AD 1-2 PUF INH AD PRN COPD ( Reported) Ascorbate Calcium (Vitamin C) 500 MG TABLET 500 MG PO QAM SUPPLEMENT ( Reported) Aspirin (Ecotrin*) 81 MG TABLET. 1 TAB PO QAM HEART/BLOOD (Reported) Atorvastatin Calcium 80 MG TABLET 1 TAB PO DAILY PVD (Reported) Budesonide/Formoterol Fumarate (Symbicort 160-4.5 Mcg Inhaler) 160 MCG-4.5 MCG/ ACTUATION HFA.AER.AD 2 PUF INH BID BREATHING PROBLEMS (Reported) Clopidogrel Bisulfate (Plavix) 75 MG TABLET 1 TAB PO DAILY BLOOD THINNER ( Reported) Cyanocobalamin (Vitamin B-12) 1,000 MCG TABLET 1 TAB PO DAILY SUPPLEMENT ( Reported) Digoxin (Lanoxin) 125 MCG TABLET 0.125 MG PO 1700 HFrEF . Ergocalciferol (Vitamin D2) (Vitamin D2) 50,000 UNIT CAPSULE 1 TAB PO QSUN SUPPLEMENT (Reported) Ezetimibe (Zetia) 10 MG TABLET 10 MG PO DAILY CHOLESTEROL (Reported) Ferrous Sulfate 325 MG (65 MG IRON) TABLET 1 TAB PO TID IRON, VITAMIN ( Reported) Fish Oil/Dha/Epa (Fish Oil 1,200 MG Fish Oil) 1,200 MG-144 MG-216 MG CAPSULE 1 CAP PO DAILY SUPPLEMENT (Reported) Furosemide (Lasix) 40 MG TABLET 1 TAB PO DAILY CHF Please take as prescribed and follow up with your doctor. Insulin Glargine,Hum.rec.anlog (Lantus Solostar) 100 UNIT/ML (3 ML) INSULN.PEN 4 UNIT SC QPM dm (Reported) Levothyroxine Sodium (Synthroid) 25 MCG TABLET 0.025 MG PO DAILY AC HYPOTHYROIDISM . Oxycodone HCl/Acetaminophen (Percocet 7.5-325 MG Tablet) 7.5 MG-325 MG TABLET 1 TAB PO BID PAIN (Reported) Sertraline HCl 50 MG TABLET 50 MG PO DAILY DEPRESSION (Reported) Sitagliptin Phosphate (Januvia) 100 MG TABLET 1 TAB PO DAILY DIABETES ( Reported) Past History Medical History Blood Transfusion Hx: Yes Neurological: GAIT ABDNORMALITY WEAKNESS EENT: NONE Cardiovascular: aortic stenosis, CAD, CHF, hypertension, hyperlipidemia, NSTEMI, PVD Respiratory: NONE Gastrointestinal: appt for pill cam cancelled for today due to ED visit gi bleed Hepatic: NONE Renal: urinary incontinence, CKD Musculoskeletal: CHRONIC OSTEOMYLITIS LFT FOOT- TOES AMP X5 RGHT FOOT- TOES AMP X4 Psychiatric: depression Endocrine: diabetes Blood Disorders: anemia with occ tranfusions 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 amputation of 9 toes PTCA ESWL by Dr. Ledesma toe amputations bilaterally aortic valve, LE stents Family History Relations & Conditions If Any: FATHER (CAD). , Age 40-50; Cause: CAD (coronary artery disease). MOTHER (Pancreatic cancer). BROTHER (HTN). Psychosocial History Who Do You Live With? spouse Services at Home: Nursing Primary Language: Wolof Smoking Status: Former Smoker ETOH Use: denies use Illicit Drug Use: denies illicit drug use Functional Ability ADLs Independent: dressing, eating, toileting, bathing. Ambulation: independent IADLs Independent: shopping, housework, finances, food prep, telephone, transportation , medication admin. Review of Systems Review of Systems: 12 point review of symptoms notable for left foot rest pain. Exam & Diagnostic Data Vital Signs and I&O Vital Signs Date Time Temp Pulse Resp B/P B/P Pulse O2 O2 Flow FiO2 Mean Ox Delivery Rate 03/18 1010 98.1 65 18 122/40 94 Room Air 03/18 0657 98.1 59 20 106/52 96 Room Air 03/17 2151 98.0 62 20 102/50 96 Room Air 03/17 1951 97.6 62 20 112/58 95 Room Air 03/17 1645 51 18 116/58 96 Room Air 03/17 1633 Room Air 03/17 1434 97.4 60 20 101/46 96 Room Air Intake & Output 03/18 1600 03/18 0800 03/18 0000 03/17 1600 03/17 0800 03/17 0000 Intake Total 200 240 0 Output Total 250 Balance 200 -10 0 Intake, Oral 200 240 0 Number 0 Bowel Movements Output, Urine 250 Patient 180 lb Weight left foot cap refill present. foot is cooler than the right. decreased senasation of foot but it is present. no dopplerable signals. Assessment/Plan Assessment/Plan 67 y/o m w/ mmp with left foot rest pain. -pt should be started on therapeutic heparin gtt. -he is scheduled for left common femoral endarterectomy on thursday -he needs preoperative clearance by cardiology given his cardiac history npo midnight on thursday night. Consult Acknowledgment - Thank you for your consult request.
[2018-03-18 14:13] VITALS: BP 90/56
--- NOTE | 2018-03-18 16:53 | Cons- Podiatry ---
General Information and HPI Consulting Request Date of Consult: 03/18/18 Requested By: Ben BROWN,Ryan Hennessy Reason for Consult: Bullous changes, dorsal mid foot and anterior ankle, right lower extremity. Source of Information: patient Exam Limitations: confusion, poor historian History of Present Illness: This is a 67-year-old diabetic male with a history of chronic alcohol abuse who is status post multiple partial foot amputations bilaterally, who is status post a recent revascularization procedure of the right lower extremity by Bryce Gage MD who was admitted yesterday for intractable pain. Podiatry is consulted for new onset bullous changes on the dorsal aspect the right foot and ankle. The patient is seen and evaluated at bedside, and does answer basic questions, but appears mildly confused. Review of the chart reveals that he is scheduled for another revascularization procedure of the right lower extremity this coming Thursday. He is also receiving a unit of packed red blood cells at the time of my examination. Allergies/Medications Allergies: Coded Allergies: No Known Allergies (11/13/17) Home Med List: Albuterol Sulfate (Ventolin Hfa) 90 MCG HFA.AER.AD 1-2 PUF INH AD PRN COPD ( Reported) Ascorbate Calcium (Vitamin C) 500 MG TABLET 500 MG PO QAM SUPPLEMENT ( Reported) Aspirin (Ecotrin*) 81 MG TABLET.DR 1 TAB PO QAM HEART/BLOOD (Reported) Atorvastatin Calcium 80 MG TABLET 1 TAB PO DAILY PVD (Reported) Budesonide/Formoterol Fumarate (Symbicort 160-4.5 Mcg Inhaler) 160 MCG-4.5 MCG/ ACTUATION HFA.AER.AD 2 PUF INH BID BREATHING PROBLEMS (Reported) Clopidogrel Bisulfate (Plavix) 75 MG TABLET 1 TAB PO DAILY BLOOD THINNER ( Reported) Cyanocobalamin (Vitamin B-12) 1,000 MCG TABLET 1 TAB PO DAILY SUPPLEMENT ( Reported) Digoxin (Lanoxin) 125 MCG TABLET 0.125 MG PO 1700 HFrEF . Ergocalciferol (Vitamin D2) (Vitamin D2) 50,000 UNIT CAPSULE 1 TAB PO QSUN SUPPLEMENT (Reported) Ezetimibe (Zetia) 10 MG TABLET 10 MG PO DAILY CHOLESTEROL (Reported) Ferrous Sulfate 325 MG (65 MG IRON) TABLET 1 TAB PO TID IRON, VITAMIN ( Reported) Fish Oil/Dha/Epa (Fish Oil 1,200 MG Fish Oil) 1,200 MG-144 MG-216 MG CAPSULE 1 CAP PO DAILY SUPPLEMENT (Reported) Furosemide (Lasix) 40 MG TABLET 1 TAB PO DAILY CHF Please take as prescribed and follow up with your doctor. Insulin Glargine,Hum.rec.anlog (Lantus Solostar) 100 UNIT/ML (3 ML) INSULN.PEN 4 UNIT SC QPM dm (Reported) Levothyroxine Sodium (Synthroid) 25 MCG TABLET 0.025 MG PO DAILY AC HYPOTHYROIDISM . Oxycodone HCl/Acetaminophen (Percocet 7.5-325 MG Tablet) 7.5 MG-325 MG TABLET 1 TAB PO BID PAIN (Reported) Sertraline HCl 50 MG TABLET 50 MG PO DAILY DEPRESSION (Reported) Sitagliptin Phosphate (Januvia) 100 MG TABLET 1 TAB PO DAILY DIABETES ( Reported) Current Medications: Current Medications Sig/Salome Start time Last Medication Dose Route Stop Time Status Admin Albuterol Sulfate See Dose Q4-6 PRN PRN 03/17 1945 AC Insts (1) INH Ascorbic Acid 500 MG DAILY 03/18 09 AC 03/18 PO 0933 Aspirin Buffered 81 MG QAM 03/18 0900 AC 03/18 PO 0932 Atorvastatin Calcium 80 MG 1700 03/18 1700 AC PO Budesonide/ 2 PUF BID 03/17 2100 AC 03/18 Formoterol Fumarate INH 0933 Clopidogrel Bisulfate 75 MG DAILY 03/18 0900 AC 03/18 PO 0933 Cyanocobalamin 1,000 MCG DAILY 03/18 0900 AC 03/18 PO 0933 Digoxin 0.125 MG 1700 03/18 1700 AC PO Ezetimibe 10 MG DAILY 03/18 0900 AC 03/18 PO 0933 Ferrous Sulfate 325 MG TID 03/17 2100 AC 03/18 PO 1415 Furosemide 40 MG DAILY 03/18 0900 DC 03/18 PO 0933 Heparin Sodium 25,000 UNIT Q24H 03/18 1430 AC (Porcine) IV Sodium Chloride 500 ML Heparin Sodium 5,000 UNIT Q8 03/18 06 DC 03/18 (Porcine) SC 0526 Hydromorphone HCl 1 MG Q6 PRN 03/17 1945 AC 03/18 IV 0234 Insulin Aspart 0 TIDAC 03/18 0800 AC SC Insulin Detemir 4 UNITS QPM 03/17 2100 AC 03/17 SC 2140 Levothyroxine Sodium 0.025 MG DAILY AC 03/18 0700 03/18 PO 0526 Morphine Sulfate 2 MG Q6P PRN 03/17 1945 CAN IV Morphine Sulfate 2 MG Q6P PRN 03/17 1945 AC 03/18 IV 0759 Oxycodone/ 2 TAB Q6P PRN 03/17 1945 AC 03/18 Acetaminophen PO 1415 Patient Medication 1 ED ONE ONE 03/18 1645 AC Teaching ED 03/18 1646 Sertraline HCl 50 MG DAILY 03/18 0900 AC 03/18 PO 0933 Sodium Chloride 1,000 ML Q10H 03/18 1100 AC 03/18 IV 1104 Sodium Chloride 1,000 ML ONCE ONE 03/17 1245 DC 03/17 IV 03/17 1924 1443 Dose Instructions: (1)Albuterol Sulfate: 1-2 PUF Past History Medical History Blood Transfusion Hx: Yes Neurological: GAIT ABDNORMALITY WEAKNESS EENT: NONE Cardiovascular: aortic stenosis, CAD, CHF, hypertension, hyperlipidemia, NSTEMI, PVD Respiratory: NONE Gastrointestinal: appt for pill cam cancelled for today due to ED visit gi bleed Hepatic: NONE Renal: urinary incontinence, CKD Musculoskeletal: CHRONIC OSTEOMYLITIS LFT FOOT- TOES AMP X5 RGHT FOOT- TOES AMP X4 Psychiatric: depression Endocrine: diabetes Blood Disorders: anemia with occ tranfusions 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 amputation of 9 toes PTCA ESWL by Dr. Ledesma toe amputations bilaterally aortic valve, LE stents Family History Relations & Conditions If Any: FATHER (CAD). , Age 40-50; Cause: CAD (coronary artery disease). MOTHER (Pancreatic cancer). BROTHER (HTN). Psychosocial History Who Do You Live With? spouse Services at Home: Nursing Primary Language: Salvadorean Smoking Status: Former Smoker ETOH Use: denies use Illicit Drug Use: denies illicit drug use Functional Ability ADLs Independent: dressing, eating, toileting, bathing. Ambulation: independent IADLs Independent: shopping, housework, finances, food prep, telephone, transportation , medication admin. Review of Systems Review of Systems: Patient reports pain in both lower extremities, right much more so than left, but otherwise a 14 point review of systems was performed and found to be negative apart from mild confusion and bilateral lower extremity pain. Exam & Diagnostic Data Vital Signs and I&O Vital Signs Date Time Temp Pulse Resp B/P B/P Pulse O2 O2 Flow FiO2 Mean Ox Delivery Rate 03/18 1413 98.2 58 20 90/56 99 Room Air 03/18 1010 98.1 65 18 122/40 94 Room Air 03/18 0657 98.1 59 20 106/52 96 Room Air 03/17 2151 98.0 62 20 102/50 96 Room Air 03/17 1951 97.6 62 20 112/58 95 Room Air 03/17 1645 51 18 116/58 96 Room Air Intake & Output 03/18 1600 03/18 0800 03/18 0000 03/17 1600 03/17 0800 03/17 0000 Intake Total 1000 200 240 0 Output Total 500 250 Balance 500 200 -10 0 Intake, IV 400 Intake, Oral 600 200 240 0 Number 0 Bowel Movements Output, Urine 500 250 Patient 180 lb 180 lb Weight Physical Exam: The patient is status post closed transmetatarsal amputation of the left foot, and his right foot has multiple partial ray resections and there only remains the fifth digit, which has an adductovarus contracture. The patient has nonpalpable pedal pulses bilaterally. The patient is a normal temperature gradient in the left lower extremity, and a substantially increased temperature gradient in the right lower extremity, with substantial poikilothermic extending from the distal aspect of the partially amputated right foot up to about 3 cm proximal to the ankle joint line. There is no capillary refill time on the right side in the entirety of the foot, there is a 3 second capillary refill time on the transmetatarsal amputation stump of the left foot. There is significant peau d'orange of the skin, much more so on the right and left. There is no hair growth on either foot. There is significant cyanosis of the entire skin envelope of the right foot from its distal aspect of to about the ankle joint line, but this is not very tender to palpation. There are new onset serous bulla on the dorsal aspect of the right hindfoot as well as the anterior aspect of the ankle, and these exhibit no signs of infection. I also experimented with placing the patient's legs in a dependent position, and he reported that his pain had improved. Last 24 Hours of Labs: Laboratory Tests 03/18 0655 Chemistry Sodium (137 - 145 mmol/L) 144 Potassium (3.5 - 5.1 mmol/L) 4.7 Chloride (98 - 107 mmol/L) 108 H Carbon Dioxide (22 - 30 mmol/L) 23 Anion Gap (5 - 16) 12 BUN (9 - 20 mg/dL) 87 H Creatinine (0.7 - 1.2 mg/dL) 2.3 H Estimated GFR (>60 ml/min) 29 L BUN/Creatinine Ratio (7 - 25 %) 37.8 H Total Bilirubin (0.2 - 1.3 mg/dL) 0.7 Direct Bilirubin (< 0.4 mg/dL) 0.5 H AST (17 - 59 U/L) 102 H ALT (21 - 72 U/L) 267 H Alkaline Phosphatase (< 127 U/L) 92 Total Protein (6.3 - 8.2 g/dL) 7.1 Albumin (3.5 - 5.0 g/dL) 2.9 L Hematology CBC w Diff NO MAN DIFF REQ WBC (4.8 - 10.8 /CUMM) 12.0 H RBC (4.70 - 6.10 /CUMM) 2.39 L Hgb (14.0 - 18.0 G/DL) 7.0 *L Hct (42 - 52 %) 21.8 L MCV (80.0 - 94.0 FL) 91.4 MCH (27.0 - 31.0 PG) 29.5 MCHC (33.0 - 37.0 G/DL) 32.3 L RDW (11.5 - 14.5 %) 22.8 H Plt Count (130 - 400 /CUMM) 157 MPV (7.4 - 10.4 FL) 8.4 Gran % (42.2 - 75.2 %) 86.2 H Lymphocytes % (20.5 - 51.1 %) 3.9 L Monocytes % (1.7 - 9.3 %) 9.4 H Eosinophils % (0 - 5 %) 0.5 Basophils % (0.0 - 2.0 %) 0 Absolute Granulocytes (1.4 - 6.5 /CUMM) 10.3 H Absolute Lymphocytes (1.2 - 3.4 /CUMM) 0.5 L Absolute Monocytes (0.10 - 0.60 /CUMM) 1.1 H Absolute Eosinophils (0.0 - 0.7 /CUMM) 0.1 Absolute Basophils (0.0 - 0.2 /CUMM) 0 Toxicology Digoxin (0.8 - 2.0 ng/mL) 1.0 Assessment/Plan Assessment/Plan 67-year-old diabetic male with significant peripheral arterial disease status post right lower extremity angiogram with pseudoaneurysm complication with critical limb ischemia of the right lower extremity and new onset bullous formation suggestive of early tissue necrosis. The patient was seen and evaluated at bedside I offered the patient Betadine paint every other day as a wound care termination , and he refuses this. We instead placed a dry sterile nonstick dressing, and we will replace this daily. We will follow-up the vascular surgery plan, and will continue to monitor any demarcation of tissue devitalization of the right foot. Based on clinical findings, I believe his current leukocytosis to be reactive based on the limb ischemia, and will monitor VS and WBC for SIRS. Will order XR right foot and ankle to r/o chronic osteomyelitis Will f/u daily Problem List: 1. Peripheral vascular disease Copies To: Too BROWN,Bryce Consult Acknowledgment - Thank you for your consult request.
[2018-03-18 19:00] LABS: PTT 35 SEC (25-37)
--- NOTE | 2018-03-18 21:29 | Cons- Cardiology ---
General Information and HPI Consulting Request Date of Consult: 03/18/18 Requested By: Ben BROWN,Ryan Hennessy History of Present Illness: Mr. Almanzar is a 67 year old male with history of diabetes, coronary artery disease s/p MD with stent placement to the LCX, renal insufficiency and aortic stenosis. He is now status post cardiac bypass and aortic valve replacement. Ede had a recent vascular surgery procedure on the right leg. He presented to the ER with complaints of severe and intractable right leg discomfort. He also had a fall without loss of consciousness. Ede is only mildly active but he denies chest pain, pressure, tightness, shortness of breath, lightheadedness or palpitations. He remains profoundly anemic. He also has worsening of his renal insufficiency and hepatic insufficiency. To review this patient's prior history, he was initially seen in the ER last April for evaluation of mental status changes which apparently tend to occur when the patient has worsening of his renal function. He has also had a prior hospital admission for a GI bleed and during that admission he had a rise in his cardiac troponin. As such, a repeat cardiac catheterization was done followed by bypass surgery and bioprosthetic aortic valve replacement. This patient's echo shows a mild to moderately decreased EF of 40% with mid to distal and apical inferoseptal severe hypokinesis. Mild left ventricular hypertrophy was noted. The RV appeared D-shaped consistent wtih increased RV pressures. The left atrium is markedly enlarged with mild right atrial enlargement. Moderate pulmonary hypertension was noted. In terms of cardiac valves there is mild MR, moderate TR, trace to mild PI and moderate aortic stenosis with mild AI. Allergies/Medications Allergies: Coded Allergies: No Known Allergies (11/13/17) Home Med List: Albuterol Sulfate (Ventolin Hfa) 90 MCG HFA.AER.AD 1-2 PUF INH AD PRN COPD ( Reported) Ascorbate Calcium (Vitamin C) 500 MG TABLET 500 MG PO QAM SUPPLEMENT ( Reported) Aspirin (Ecotrin*) 81 MG TABLET.DR 1 TAB PO QAM HEART/BLOOD (Reported) Atorvastatin Calcium 80 MG TABLET 1 TAB PO DAILY PVD (Reported) Budesonide/Formoterol Fumarate (Symbicort 160-4.5 Mcg Inhaler) 160 MCG-4.5 MCG/ ACTUATION HFA.AER.AD 2 PUF INH BID BREATHING PROBLEMS (Reported) Clopidogrel Bisulfate (Plavix) 75 MG TABLET 1 TAB PO DAILY BLOOD THINNER ( Reported) Cyanocobalamin (Vitamin B-12) 1,000 MCG TABLET 1 TAB PO DAILY SUPPLEMENT ( Reported) Digoxin (Lanoxin) 125 MCG TABLET 0.125 MG PO 1700 HFrEF . Ergocalciferol (Vitamin D2) (Vitamin D2) 50,000 UNIT CAPSULE 1 TAB PO QSUN SUPPLEMENT (Reported) Ezetimibe (Zetia) 10 MG TABLET 10 MG PO DAILY CHOLESTEROL (Reported) Ferrous Sulfate 325 MG (65 MG IRON) TABLET 1 TAB PO TID IRON, VITAMIN ( Reported) Fish Oil/Dha/Epa (Fish Oil 1,200 MG Fish Oil) 1,200 MG-144 MG-216 MG CAPSULE 1 CAP PO DAILY SUPPLEMENT (Reported) Furosemide (Lasix) 40 MG TABLET 1 TAB PO DAILY CHF Please take as prescribed and follow up with your doctor. Insulin Glargine,Hum.rec.anlog (Lantus Solostar) 100 UNIT/ML (3 ML) INSULN.PEN 4 UNIT SC QPM dm (Reported) Levothyroxine Sodium (Synthroid) 25 MCG TABLET 0.025 MG PO DAILY AC HYPOTHYROIDISM . Oxycodone HCl/Acetaminophen (Percocet 7.5-325 MG Tablet) 7.5 MG-325 MG TABLET 1 TAB PO BID PAIN (Reported) Sertraline HCl 50 MG TABLET 50 MG PO DAILY DEPRESSION (Reported) Sitagliptin Phosphate (Januvia) 100 MG TABLET 1 TAB PO DAILY DIABETES ( Reported) Review of Systems Review of Systems: A reveiw of systems is unremarkable. 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 amputation of 9 toes PTCA ESWL by [address] Ledesma toe amputations bilaterally aortic valve, LE stents Family History Relations & Conditions If Any: FATHER (CAD). , Age 40-50; Cause: CAD (coronary artery disease). MOTHER (Pancreatic cancer). BROTHER (HTN). Psychosocial History Who Do You Live With? 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 Ambulation: independent IADLs Independent: shopping, housework, finances, food prep, telephone, transportation , medication admin. Exam & Diagnostic Data Vital Signs and I&O Vital Signs Date Time Temp Pulse Resp B/P B/P Pulse O2 O2 Flow FiO2 Mean Ox Delivery Rate 03/18 1802 62 118/56 03/18 1413 98.2 58 20 90/56 99 Room Air 03/18 1010 98.1 65 18 122/40 94 Room Air 03/18 0657 98.1 59 20 106/52 96 Room Air 03/17 2151 98.0 62 20 102/50 96 Room Air Intake & Output 03/18 1600 03/18 0800 03/18 0000 03/17 1600 03/17 0800 03/17 0000 Intake Total 1000 200 240 0 Output Total 500 250 Balance 500 200 -10 0 Intake, IV 400 Intake, Oral 600 200 240 0 Number 0 Bowel Movements Output, Urine 500 250 Patient 180 lb 180 lb Weight Physical Exam: General: WD/WN male in NAD; alert and oriented x 3 HEENT: NC/AT, PERRL, EOMI Neck: no JVD, no carotid bruit Heart: RRR with 2/6 systolic murmur Lungs: clear bilaterally Abdomen: soft, NT, +ve bowel sounds Extremities: 1+ bilateral leg edema, venous stasis changes bilaterally, toe amputations bilaterally Assessment/Plan Assessment/Plan * This patient has had a NSTEMI within the past six weeks. He also has renal insufficiency and hepatic insufficiency. As such, he is at increased risk for surgery but this risk is in the 5% range and is not prohibitive for non-elective surgery. He is profoundly anemic and is nevertheless free of chest pain which portends a good prognosis for tolerance of surgery. He will need an ECG which will be reviewed prior to clearance. * Agree with transfusion of blood prior to any procedures. * This patient may have anemia due to renal insuffciency however a prior workup disclosed an increased reticulocyte count instead of a low retic count that goes along better with bleeding than decreased production. Guaiac all stools and follow his H/H. Okay to use IV heparin for now with careful monitoring for bleeding. * This patient has evidence of hepatic insufficiency likely related to RV dysfunction. Obtain an echocardiogram. Stop Atorvastatin. Consult Acknowledgment - Thank you for your consult request.
[2018-03-18 21:59] VITALS: BP 112/56
--- NOTE | 2018-03-18 22:00 | RADIOLOGY REPORT ---
EXAMINATION: RIGHT FOOT AND RIGHT ANKLE. CLINICAL INFORMATION: Peripheral vascular disease with tissue loss. Evaluate for osteomyelitis. COMPARISON: None TECHNIQUE: 3 views right foot and 3 views of right ankle. FINDINGS: RIGHT ANKLE: There is no visible acute fracture, dislocation or subluxation. The ankle mortise and subtalar joints are normal. A small calcaneal heel spur is seen. RIGHT FOOT: There is amputation of first through fourth mid to distal metatarsals and beyond. The fifth digit is entirely maintained. Subluxed medially. No bony erosive changes, periosteal elevation or soft tissue gas seen to suggest any osteomyelitis or abscess or inflammation. IMPRESSION: Unremarkable right ankle exam except for a small calcaneal heel spur. Amputation of first through fourth mid to distal metatarsals and beyond. The fifth digit is intact but subluxed medially at the MTP joint. There is no suggestion for osteomyelitis. The soft tissues are normal.
[2018-03-18 23:19] LABS: ABSOLUTE BASOPHIL COUNT 0 /CUMM (0.0-0.2); ABSOLUTE EOSINOPHIL COUNT 0.1 /CUMM (0.0-0.7); ABSOLUTE GRANULOCYTE CT 10.3 /CUMM (1.4-6.5); ABSOLUTE LYMPH COUNT 0.5 /CUMM (1.2-3.4); ABSOLUTE MONOCYTE COUNT 1.3 /CUMM (0.10-0.60); BASOPHIL % 0.1 % (0.0-2.0); EOSINOPHIL % 0.6 % (0-5); MEAN CORPUSCULAR HGB 29.3 PG (27.0-31.0); MEAN CORPUSCULAR HGB CONC 32.4 G/DL (33.0-37.0); MEAN CORPUSCULAR VOLUME 90.5 FL (80.0-94.0); MEAN PLATELET VOLUME 7.6 FL (7.4-10.4); PLATELET COUNT 156 /CUMM (130-400); RED BLOOD CELL CT 2.98 /CUMM (4.70-6.10); WHITE BLOOD CELL COUNT 12.2 /CUMM (4.8-10.8)
[2018-03-18 23:20] LABS: GRANULOCYTE % 84.7 % (42.2-75.2)
[2018-03-19 06:53] VITALS: BP 106/52
--- NOTE | 2018-03-19 07:18 | PN- Housestaff ---
See Addendum Subjective Follow-up For: Peripheral vascular disease right leg pain Subjective: Patient seen and examined. Still has pain in his right foot but controlled. Offers no complaints. Review of Systems Constitutional: Reports: no symptoms. Objective Last 24 Hrs of Vital Signs/I&O Vital Signs Date Time Temp Pulse Resp B/P B/P Pulse O2 O2 Flow FiO2 Mean Ox Delivery Rate 03/19 0653 97.7 57 16 106/52 94 Room Air 03/18 2159 98.5 60 16 112/56 96 Room Air 03/18 1802 62 118/56 03/18 1413 98.2 58 20 90/56 99 Room Air 03/18 1010 98.1 65 18 122/40 94 Room Air Intake & Output 03/19 0800 03/19 0000 03/18 1600 Intake Total 215 220 2794 Output Total 600 350 500 Balance 300 370 500 Intake, Blood 300 Product Intake, IV 800 300 400 Intake, Oral 100 120 600 Number 0 0 Bowel Movements Output, Urine 600 350 500 Patient 171 lb 170 lb 180 lb Weight Weight Bed scale Bed scale Measurement Method Physical Exam General Appearance: Alert, Oriented X3, Cooperative, Mild Distress Skin: No Rashes, No Breakdown Skin Temp/Moisture Exam: Warm/Dry Sepsis Skin Exam (color): Normal for Ethnicity HEENT: Atraumatic Cardiovascular: Normal S1, Normal S2, THOMAS Lungs: Normal Air Movement, decreased air entry at bases Abdomen: Soft, No Tenderness Neurological: Normal Speech Extremities: right foot cold with bluish discoloration. S/p amputation with only 5th digit remaining. Left foot s/p toe amputations Vascular: absent dorsalis pedis bilaterally Last 24 Hrs of Lab/Sadi Results Last 24 Hrs of Labs/Mics: Laboratory Tests 03/19/18 1228: APTT 35 03/19/18 0645: Anion Gap 13, Estimated GFR 29 L, BUN/Creatinine Ratio 38.3 H, Total Bilirubin 1.0, Direct Bilirubin 0.7 H, AST 80 H, ALT 229 H, Alkaline Phosphatase 98, Total Protein 7.4, Albumin 3.0 L, CBC w Diff NO MAN DIFF REQ, RBC 2.89 L, MCV 90.7, MCH 29.1, MCHC 32.1 L, RDW 23.1 H, MPV 8.1, Gran % 86.7 H, Lymphocytes % 3.1 L, Monocytes % 9.8 H, Eosinophils % 0.4, Basophils % 0, Absolute Granulocytes 10.9 H, Absolute Lymphocytes 0.4 L, Absolute Monocytes 1.2 H, Absolute Eosinophils 0.1, Absolute Basophils 0 03/18/18 2310: CBC w Diff NO MAN DIFF REQ, RBC 2.98 L, MCV 90.5, MCH 29.3, MCHC 32.4 L, RDW 23.0 H, MPV 7.6, Gran % 84.7 H, Lymphocytes % 4.1 L, Monocytes % 10.5 H, Eosinophils % 0.6, Basophils % 0.1, Absolute Granulocytes 10.3 H, Absolute Lymphocytes 0.5 L, Absolute Monocytes 1.3 H, Absolute Eosinophils 0.1, Absolute Basophils 0 03/18/18 1824: APTT 35 Assessment/Plan Assessment: Mr. Almanzar is a 67-year-old male with PMH of aortic stenosis, CAD s/p CABG (2016), CHF (last Echo 12/30/2017) with LVEF of 40-45% and anterior wall akinsis, hypertension, hyperlipidemia, NSTEMI, PVD, urinary incontinence, CKD, and chronic osteomyelities w/ toes amputation who presented to the ED with complains of progressive worsening right lower leg pain. Assessment: 1. Severe stenosis in the proximal superficial femoral artery. 2. GRECIA on CKD 3. Transaminitis 4. Anemia 5. History of PVD 6. History of Hypertension, Hyperlipidemia Plan: * Patient had a HUBERT last night which was heme +ve and IV heparin was not started. * He has had colonoscopy/EGD/PillCam in the past with no conclusive results. * He is stable from a GI standpoint to be started on IV Heparin. * If signs of overt GI bleeding, GI to be notified. * Start IV Heparin drip. * His Doppler U/S shows probable occluded profunda femoral artery and severe stenosis in the proximal superficial femoral artery. * He will require right common femoral endarterectomy which is scheduled for Thursday. * s/p 1 unit pRBC today with improvement in his H&H * Echocardiogram to assess for RV dysfunction prior to his procedure - pending. * He is however, stable from a cardiac standpoint for his elective vascular endarterectomy * Podiatry input appreciated. * He likely has GRECIA on CKD. Will obtain nephro consult as his Cr has been stable at 2.3 since admission. Plus he will be receiving a dye load for his angiogram on Thursday. * His LFTs are trending down. Unclear about the elevation. aContinue to trend. * Pain control with Percocet (mild) , IV morphine (moderate) and dilaudidd ( severe). * Continue all home meds: aspirin, plavix, sertraline, levothyroxine, albuterol, symbicort. Hold oral hypoglycemics and Lasix. * Insulin SS with Accucheks * Levemir 4units QPM * Diet: Heart Healthy * DVT Prophylaxis: IV Heparin * Code: Full Code On weekend Dr Oates will be covering on 03/[address] Early on 03/21 Problem List: 1. Peripheral vascular disease Pain Ratin Pain Location: none Pain Goal: Remain pain free Pain Plan: none Tomorrow's Labs & Rationales: CBC, BEP
[2018-03-19 07:54] LABS: ABSOLUTE BASOPHIL COUNT 0 /CUMM (0.0-0.2); ABSOLUTE EOSINOPHIL COUNT 0.1 /CUMM (0.0-0.7); ABSOLUTE GRANULOCYTE CT 10.9 /CUMM (1.4-6.5); ABSOLUTE LYMPH COUNT 0.4 /CUMM (1.2-3.4); ABSOLUTE MONOCYTE COUNT 1.2 /CUMM (0.10-0.60); BASOPHIL % 0 % (0.0-2.0); EOSINOPHIL % 0.4 % (0-5); HEMATOCRIT 26.2 % (42-52); MEAN CORPUSCULAR HGB 29.1 PG (27.0-31.0); MEAN CORPUSCULAR HGB CONC 32.1 G/DL (33.0-37.0); MEAN CORPUSCULAR VOLUME 90.7 FL (80.0-94.0); MEAN PLATELET VOLUME 8.1 FL (7.4-10.4); PLATELET COUNT 155 /CUMM (130-400); RBC DISTRIBUTION WIDTH 23.1 % (11.5-14.5); RED BLOOD CELL CT 2.89 /CUMM (4.70-6.10); WHITE BLOOD CELL COUNT 12.6 /CUMM (4.8-10.8)
--- NOTE | 2018-03-19 08:05 | Cons- Gastroenterology ---
General Information and HPI Consulting Request Date of Consult: 03/19/18 Requested By: Ryan Contreras MD Reason for Consult: Guaiac positive stool, anemia. Source of Information: patient, old records Exam Limitations: clinical condition History of Present Illness: Mr. Almanzar is a 67 year old male with a PMH of aortic stenosis, CAD s/p CABG (), CHF, hypertension, hyperlipidemia, TONY, NSTEMI, PVD, CKD, and chronic osteomyelities w/ toes amputation who presented to the ED with complains of progressive worsening right lower leg pain on 03/17/18. His leg pain has been attributed to worsening PVD/claudication and he is scheduled for a femoral endarterectomy on Thursday and it has been recommended that he be placed on IV heparin in the interim time period. It was also recommended that his stools be checked for occult blood which was positive last night which prompted a GI consultation. He is on chronic iron for TONY that makes his stool dark, but he is without black tarry, sticky stool. His anemia has been worked up extensively with a negative EGD and colonoscopy this past September and he also had a pill cam a few months ago which showed a non-bleeding AVM in the jejunum, but no active bleeding. He is without any current complaints of abdominal pain, vomiting, heartburn or dysphagia. He is also without any overt bright red blood per rectum. He has been hemodynamically stable since admission. He remains in a significant amount of distress from his leg pain. He has received one unit of PRBCs on admission for a hgb of 7.0 which appropriatedly corrected to 8.7. Allergies/Medications Allergies: Coded Allergies: No Known Allergies (11/13/17) Home Med List: Albuterol Sulfate (Ventolin Hfa) 90 MCG HFA.AER.AD 1-2 PUF INH AD PRN COPD ( Reported) Ascorbate Calcium (Vitamin C) 500 MG TABLET 500 MG PO QAM SUPPLEMENT ( Reported) Aspirin (Ecotrin*) 81 MG TABLET.DR 1 TAB PO QAM HEART/BLOOD (Reported) Atorvastatin Calcium 80 MG TABLET 1 TAB PO DAILY PVD (Reported) Budesonide/Formoterol Fumarate (Symbicort 160-4.5 Mcg Inhaler) 160 MCG-4.5 MCG/ ACTUATION HFA.AER.AD 2 PUF INH BID BREATHING PROBLEMS (Reported) Clopidogrel Bisulfate (Plavix) 75 MG TABLET 1 TAB PO DAILY BLOOD THINNER ( Reported) Cyanocobalamin (Vitamin B-12) 1,000 MCG TABLET 1 TAB PO DAILY SUPPLEMENT ( Reported) Digoxin (Lanoxin) 125 MCG TABLET 0.125 MG PO 1700 HFrEF . Ergocalciferol (Vitamin D2) (Vitamin D2) 50,000 UNIT CAPSULE 1 TAB PO QSUN SUPPLEMENT (Reported) Ezetimibe (Zetia) 10 MG TABLET 10 MG PO DAILY CHOLESTEROL (Reported) Ferrous Sulfate 325 MG (65 MG IRON) TABLET 1 TAB PO TID IRON, VITAMIN ( Reported) Fish Oil/Dha/Epa (Fish Oil 1,200 MG Fish Oil) 1,200 MG-144 MG-216 MG CAPSULE 1 CAP PO DAILY SUPPLEMENT (Reported) Furosemide (Lasix) 40 MG TABLET 1 TAB PO DAILY CHF Please take as prescribed and follow up with your doctor. Insulin Glargine,Hum.rec.anlog (Lantus Solostar) 100 UNIT/ML (3 ML) INSULN.PEN 4 UNIT SC QPM dm (Reported) Levothyroxine Sodium (Synthroid) 25 MCG TABLET 0.025 MG PO DAILY AC HYPOTHYROIDISM . Oxycodone HCl/Acetaminophen (Percocet 7.5-325 MG Tablet) 7.5 MG-325 MG TABLET 1 TAB PO BID PAIN (Reported) Sertraline HCl 50 MG TABLET 50 MG PO DAILY DEPRESSION (Reported) Sitagliptin Phosphate (Januvia) 100 MG TABLET 1 TAB PO DAILY DIABETES ( Reported) Current Medications: Current Medications Sig/Salome Start time Last Medication Dose Route Stop Time Status Admin Albuterol Sulfate See Dose Q4-6 PRN PRN 03/17 1945 AC Insts (1) INH Ascorbic Acid 500 MG DAILY 03/18 09 AC 03/18 PO 0933 Aspirin Buffered 81 MG QAM 03/18 09 AC 03/18 PO 0932 Atorvastatin Calcium 80 MG 03/18 170 DC 03/18 PO 1802 Budesonide/ 2 PUF BID 03/17 2100 AC 03/18 Formoterol Fumarate INH 2230 Clopidogrel Bisulfate 75 MG DAILY 03/18 09 DC 03/18 PO 0933 Cyanocobalamin 1,000 MCG DAILY 03/18 09 AC 03/18 PO 0933 Digoxin 0.125 MG 1700 03/18 1700 AC 03/18 PO 1802 Ezetimibe 10 MG DAILY 03/18 0900 AC 03/18 PO 0933 Ferrous Sulfate 325 MG TID 03/17 2100 AC 03/18 PO 2229 Furosemide 40 MG DAILY 03/18 0900 DC 03/18 PO 0933 Heparin Sodium 25,000 UNIT Q24H 03/18 1430 DC (Porcine) IV Sodium Chloride 500 ML Heparin Sodium 5,000 UNIT Q8 03/18 0600 DC 03/18 (Porcine) SC 0526 Hydromorphone HCl 1 MG Q6 PRN 03/17 194 AC 03/18 IV 1712 Insulin Aspart 0 TIDAC 03/18 0800 AC SC Insulin Detemir 4 UNITS QPM 03/17 2100 AC 03/18 SC 2229 Levothyroxine Sodium 0.025 MG DAILY AC 03/18 0700 AC 03/19 PO 0550 Morphine Sulfate 2 MG Q6P PRN 03/17 194 AC 03/18 IV 0759 Oxycodone/ 2 TAB Q6P PRN 03/17 1945 AC 03/19 Acetaminophen PO 0049 Patient Medication 1 ED ONE ONE 03/18 1645 DC 03/18 Teaching ED 03/18 1646 1802 Sertraline HCl 50 MG DAILY 03/18 0900 AC 03/18 PO 0933 Sodium Chloride 1,000 ML Q10H 03/18 1100 AC 03/19 IV 0046 Dose Instructions: (1)Albuterol Sulfate: 1-2 PUF Past History Travel History Traveled to [place] past 21 day No Medical History Blood Transfusion Hx: Yes Neurological: GAIT ABDNORMALITY WEAKNESS EENT: NONE Cardiovascular: aortic stenosis, CAD, CHF, hypertension, hyperlipidemia, NSTEMI, PVD Respiratory: NONE Gastrointestinal: appt for pill cam cancelled for today due to ED visit gi bleed Hepatic: NONE Renal: urinary incontinence, CKD Musculoskeletal: CHRONIC OSTEOMYLITIS LFT FOOT- TOES AMP X5 RGHT FOOT- TOES AMP X4 Psychiatric: depression Endocrine: diabetes Blood Disorders: anemia with occ tranfusions Cancer(s): NONE 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 amputation of 9 toes PTCA ESWL by Dr. Ledesma toe amputations bilaterally aortic valve, LE stents Family History Relations & Conditions If Any: FATHER (CAD). , Age 40-50; Cause: CAD (coronary artery disease). MOTHER (Pancreatic cancer). BROTHER (HTN). Psychosocial History Who Do You Live With? spouse Services at Home: Nursing Primary Language: Macedonian Smoking Status: Former Smoker ETOH Use: denies use Illicit Drug Use: denies illicit drug use Functional Ability ADLs Independent: dressing, eating, toileting, bathing. Ambulation: independent IADLs Independent: shopping, housework, finances, food prep, telephone, transportation , medication admin. Review of Systems Review of Systems Constitutional: Denies: no symptoms. EENTM: Denies: no symptoms. Cardiovascular: Denies: no symptoms. Respiratory: Denies: no symptoms. GI: Denies: no symptoms. Genitourinary: Denies: no symptoms. Musculoskeletal: Reports: joint pain, muscle pain. Skin: Denies: no symptoms. Neurological/Psychological: Reports: numbness. Hematologic/Endocrine: Denies: no symptoms. Immunologic/Allergic: Denies: no symptoms. All Other Systems: Reviewed and Negative Exam & Diagnostic Data Vital Signs and I&O Vital Signs Date Time Temp Pulse Resp B/P B/P Pulse O2 O2 Flow FiO2 Mean Ox Delivery Rate 03/19 0653 97.7 57 16 106/52 94 Room Air 03/18 2159 98.5 60 16 112/56 96 Room Air 03/18 1802 62 118/56 03/18 1413 98.2 58 20 90/56 99 Room Air 03/18 1010 98.1 65 18 122/40 94 Room Air Intake & Output 03/19 1600 03/19 0400 03/18 1600 03/18 0400 03/17 0400 Intake Total 749 631 5379 240 0 Output Total 150 800 500 250 Balance 750 -80 700 -10 0 Intake, Blood 300 Product Intake, IV 800 300 400 Intake, Oral 100 120 800 240 0 Number 0 0 0 Bowel Movements Output, Urine 150 800 500 250 Patient 171 lb 170 lb 180 lb 180 lb Weight Weight Bed scale Measurement Method Physical Exam General Appearance: well developed/nourished, moderate distress Head: atraumatic, normal appearance Eyes: Bilateral: normal appearance. Ears, Nose, Throat: normal pharynx, normal ENT inspection, hearing grossly normal Neck: normal inspection, supple Respiratory: normal breath sounds, chest non-tender, no respiratory distress Cardiovascular: regular rate/rhythm, systolic murmur Gastrointestinal: normal bowel sounds, soft, non-tender, no organomegaly Rectal: deferred, guaiac positive per nursing Back: normal inspection Extremities: pedal edema Neurologic/Psych: no motor/sensory deficits, awake, alert, oriented x 3 Results Pertinent Lab Results: Laboratory Tests 03/19 03/18 03/18 0645 2310 1824 Chemistry Sodium (137 - 145 mmol/L) 147 H Potassium (3.5 - 5.1 mmol/L) 4.4 Chloride (98 - 107 mmol/L) 111 H Carbon Dioxide (22 - 30 mmol/L) 23 Anion Gap (5 - 16) 13 BUN (9 - 20 mg/dL) 88 H Creatinine (0.7 - 1.2 mg/dL) 2.3 H Estimated GFR (>60 ml/min) 29 L BUN/Creatinine Ratio (7 - 25 %) 38.3 H Total Bilirubin (0.2 - 1.3 mg/dL) 1.0 Direct Bilirubin (< 0.4 mg/dL) 0.7 H AST (17 - 59 U/L) 80 H ALT (21 - 72 U/L) 229 H Alkaline Phosphatase (< 127 U/L) 98 Total Protein (6.3 - 8.2 g/dL) 7.4 Albumin (3.5 - 5.0 g/dL) 3.0 L Coagulation APTT (25 - 37 SEC) 35 Hematology CBC w Diff Pending NO MAN DIFF REQ WBC (4.8 - 10.8 /CUMM) Pending 12.2 H RBC (4.70 - 6.10 /CUMM) Pending 2.98 L Hgb (14.0 - 18.0 G/DL) Pending 8.7 L Hct (42 - 52 %) Pending 27.0 L MCV (80.0 - 94.0 FL) Pending 90.5 MCH (27.0 - 31.0 PG) Pending 29.3 MCHC (33.0 - 37.0 G/DL) Pending 32.4 L RDW (11.5 - 14.5 %) Pending 23.0 H Plt Count (130 - 400 /CUMM) Pending 156 MPV (7.4 - 10.4 FL) Pending 7.6 Gran % (42.2 - 75.2 %) 84.7 H Lymphocytes % (20.5 - 51.1 %) 4.1 L Monocytes % (1.7 - 9.3 %) 10.5 H Eosinophils % (0 - 5 %) 0.6 Basophils % (0.0 - 2.0 %) 0.1 Absolute Granulocytes (1.4 - 6.5 /CUMM) 10.3 H Absolute Lymphocytes (1.2 - 3.4 /CUMM) 0.5 L Absolute Monocytes (0.10 - 0.60 /CUMM) 1.3 H Absolute Eosinophils (0.0 - 0.7 /CUMM) 0.1 Absolute Basophils (0.0 - 0.2 /CUMM) 0 03/18 03/17 0655 1430 Chemistry Sodium (137 - 145 mmol/L) 144 143 Potassium (3.5 - 5.1 mmol/L) 4.7 4.5 Chloride (98 - 107 mmol/L) 108 H 106 Carbon Dioxide (22 - 30 mmol/L) 23 25 Anion Gap (5 - 16) 12 12 BUN (9 - 20 mg/dL) 87 H 87 H Creatinine (0.7 - 1.2 mg/dL) 2.3 H 2.3 H Estimated GFR (>60 ml/min) 29 L 29 L BUN/Creatinine Ratio (7 - 25 %) 37.8 H 37.8 H Glucose (65 - 99 mg/dL) 135 H Calcium (8.4 - 10.2 mg/dL) 9.0 Total Bilirubin (0.2 - 1.3 mg/dL) 0.7 0.7 Direct Bilirubin (< 0.4 mg/dL) 0.5 H AST (17 - 59 U/L) 102 H 143 H ALT (21 - 72 U/L) 267 H 324 H Alkaline Phosphatase (< 127 U/L) 92 109 Total Protein (6.3 - 8.2 g/dL) 7.1 7.3 Albumin (3.5 - 5.0 g/dL) 2.9 L 3.1 L Globulin (1.9 - 4.2 gm/dL) 4.2 Albumin/Globulin Ratio (1.1 - 2.2 %) 0.7 L Coagulation PT (9.4 - 12.5 SEC) 15.5 H INR (0.90 - 1.17) 1.42 H D-Dimer High Sensitivty (0 - 243 ng/ml) 2176 H Hematology CBC w Diff NO MAN DIFF REQ NO MAN DIFF REQ WBC (4.8 - 10.8 /CUMM) 12.0 H 13.0 H RBC (4.70 - 6.10 /CUMM) 2.39 L 2.61 L Hgb (14.0 - 18.0 G/DL) 7.0 *L 7.8 L Hct (42 - 52 %) 21.8 L 23.8 L MCV (80.0 - 94.0 FL) 91.4 91.0 MCH (27.0 - 31.0 PG) 29.5 29.9 MCHC (33.0 - 37.0 G/DL) 32.3 L 32.8 L RDW (11.5 - 14.5 %) 22.8 H 21.4 H Plt Count (130 - 400 /CUMM) 157 157 MPV (7.4 - 10.4 FL) 8.4 8.3 Gran % (42.2 - 75.2 %) 86.2 H 89.8 H Lymphocytes % (20.5 - 51.1 %) 3.9 L 2.5 L Monocytes % (1.7 - 9.3 %) 9.4 H 7.6 Eosinophils % (0 - 5 %) 0.5 0.1 Basophils % (0.0 - 2.0 %) 0 0 Absolute Granulocytes (1.4 - 6.5 /CUMM) 10.3 H 11.7 H Absolute Lymphocytes (1.2 - 3.4 /CUMM) 0.5 L 0.3 L Absolute Monocytes (0.10 - 0.60 /CUMM) 1.1 H 1.0 H Absolute Eosinophils (0.0 - 0.7 /CUMM) 0.1 0 Absolute Basophils (0.0 - 0.2 /CUMM) 0 0 Toxicology Digoxin (0.8 - 2.0 ng/mL) 1.0 Imaging/Other Studies: Colonoscopy Procedure Medical History: unchanged (see sandeep ov note 02/07/16) Mental Status: alert/oriented Heart/Lung Eval Prior to Sedation: within normal limits Candidate for Sedation? Yes Date of Last Colonoscopy: 04/12/13 Procedure Date: 03/12/16 Procedure Type: colonoscopy w/biopsy Rn Medical Surgical: SKIP LAZAR MD ASA Classification: III Indications: Surveillance. History of malignanct polyp in 2012; Repeat colonoscopy in 2013 was negative for adenomatous polyps. Instrument (Colonoscope): single channel Meds Received: MAC Patient's Tolerance: good Complications: none Extent Reached: cecum Prep: good Procedure: After getting written informed consent the patient was placed in the left lateral decubitus position with pulse oximetry, cardiac monitoring, and supplemental oxygen was given. IV sedation was given until the desired effect was achieved. A rectal exam was performed which was normal. A high definition variable stiffness Olympus colonoscope was then inserted into the anus and advanced to the cecum with little difficulty. Retroflexed views were obtained and photodocumentation was obtained. Close inspection of the colonic mucosa was performed on insertion and withdrawal of the colonoscope with a withdrawal time that was adequate in length to closely inspect all folds and shin of the colon. Findings: There was a 2 mm sessile polyp in the rectum which had a hyperplastic appearance and was removed with cold biopsy forceps and was sent to pathology for further evaluation. There was a previously placed spot tattoo at 55 cm from the anus without any obvious polyps or ulcers in the area. The remainder of the visualized colonic mucosa was grossly unremarkable. There were no large polyps or masses appreciated. Retroflexed views in the rectum revealed small internal hemorrhoids. Impression: 1. One diminutive rectal polyp status post removal via biopsy forceps. 2. Spot tattoo at 55 cm without any obvious pathology identified. 3. Small internal hemorrhoids. Procedure Date: 09/07/17 Procedure Type: EGD w/biopsy (preceding colonoscopy) Rn Medical Surgical: Cody Kelly M.D. ASA Classification: III Indications: Hemoccult-positive stool, anemia Instrument: diagnostic gastroscope Meds Received: MAC Patient's Tolerance: good Complications: none Extent Reached: second part of duodenum Procedure: The patient signed informed consent for EGD and colonoscopy, and was medicated. Lidocaine pharyngeal spray was administered. Pulse oximetry, blood pressure and cardiac monitoring were performed continuously throughout the procedure. The Olympus high-definition gastroscope was inserted into the mouth and advanced to the duodenum. Retroflexion was performed within the stomach to examine the cardia. Careful examination was performed. Findings: The esophagus had normal caliber and contour. There were no varices. The mucosa was intact throughout. The GE junction at 42 cm was normal. There was no hiatal hernia. The stomach had normal distention and active peristalsis. The cardia was normal. There were several small red spots in the fundus, without friability or erosion. There were prominent rugae of the fundus and body, which mostly flattened with insufflation. There were no mucosal lesions. The incisura and antrum were normal. The pyloric channel and duodenal bulb were normal. The mucosa and folds of the second portion of the duodenum were normal aside from a single polypoid elevation on a fold, which was biopsied twice. Of note there were no evident vascular lesions such as angiodysplasias were telangiectasias. Impression: * No bleeding site identified * Polypoid mucosal elevation in descending duodenum, biopsied Procedure Date: 09/07/17 Procedure Type: colonoscopy (following EGD) Rn Medical Surgical: Cody Kelly MD ASA Classification: III Indications: Hemoccult-positive stool, anemia Instrument (Colonoscope): single channel Meds Received: MAC Patient's Tolerance: good Complications: none Extent Reached: cecum Prep: incomplete: Fairly poor Procedure: Following the initial EGD, the patient was placed in the Hui position, and medicated. Examination of the rectum revealed small external hemorrhoids and decreased sphincter tone. The Olympus high-definition variable stiffness colonoscope was inserted through the anus and advanced to the cecum, identified by the appendiceal orifice and ileocecal valve. Retroflexion was performed in order to examine the rectum. Careful examination was performed. There was adequate withdrawal time. Findings: The rectum was normal. The mucosa, folds and vasculature from sigmoid to cecum were normal (given degree of preparation, small lesions may been obscured). There was a large tattoo iman at 50 cm, with no visible mucosal lesion in this area. No vascular lesions such as angiodysplasias were noted. There was no blood within the colon. 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 Assessment/Plan Assessment/Recommendations: Assessment: Mr. Mohr is a 67-year-old male with multiple medical problems admitted with intractable-leg pain from peripheral vascular disease for which he is scheduled for an endarterectomy this coming Thursday. He has a chronic anemia which is likely multifactorial and related to anemia of chronic disease, anemia from renal insufficiency, and he also likely has some occult blood loss from his GI tract from AVMs. He has been extensively worked up recently with a negative endoscopy and colonoscopy in September 2017 and he more recently had a PillCam in January which did show one jejunal AVM, but no active small bowel bleeding. As he currently only has occult blood in his stool there are no absolute GI contraindications to starting/continuing IV heparin if medically indicated for his peripheral vascular disease. Recommendations: 1. Diet as tolerated. 2. Oral PPI for GI prophylaxis. 3. No GI contraindications to continuing/restarting IV heparin if medically indicated for peripheral vascular disease, but would monitor his hemoglobin closely and would consider holding it for significant anemia or overt GI bleeding. As there are no active GI issues will signs off at this time and ask that GI be reconsulted for any overt GI bleeding that may develop while he is an inpatient or any other GI issues that may arise on this hospitalization. Problem List: 1. GI bleed 2. Anemia 3. Symptomatic anemia 4. H/O aortic valve replacement Copies To: Enoch BROWN,Ruy Moss Consult Acknowledgment - Thank you for your consult request.
[2018-03-19 09:04] LABS: GRANULOCYTE % 86.7 % (42.2-75.2)
--- NOTE | 2018-03-19 11:06 | PN- Podiatry ---
Subjective Subjective: Patient is seen and evaluated at bedside this morning, in no apparent distress, but still mildly confused, still reporting pain in both lower extremities right more so than left. The nursing staff had accompanied me on this visit and reported that he had struck her with serous drainage on his right foot bandage and that the bullous changes have worsened. Review of Systems: A 14 point review of systems was performed, and was found to be negative apart from the patient's complaints described above in the history of present illness. This was limited due to the patient's mild confusion. Objective Vital Signs and I&Os Vital Signs Date Time Temp Pulse Resp B/P B/P Pulse O2 O2 Flow FiO2 Mean Ox Delivery Rate 03/19 0653 97.7 57 16 106/52 94 Room Air 03/18 2159 98.5 60 16 112/56 96 Room Air 03/18 1802 62 118/56 03/18 1413 98.2 58 20 90/56 99 Room Air Intake & Output 03/19 1600 03/19 0800 03/19 0000 03/18 1600 03/18 0800 03/18 0000 Intake Total 260 597 1991 200 240 Output Total 600 350 500 250 Balance 300 370 500 200 -10 Intake, Blood 300 Product Intake, IV 800 300 400 Intake, Oral 100 120 600 200 240 Number 0 0 0 Bowel Movements Output, Urine 600 350 500 250 Patient 171 lb 170 lb 180 lb 180 lb Weight Weight Bed scale Bed scale Measurement Method Physical Exam: There are new onset serous bullous changes over the dorsal forefoot and midfoot. There continues to be significant cyanosis from the distal aspect of the partially amputated right foot to about 3 cm above the ankle joint line. Temperature gradient remains significantly increased and unchanged from yesterday, capillary refill is nonexistent on the remaining right fifth toe. Patient is significant peau d'orange more so on the right and left. There is significant postinflammatory hyperpigmentation of both feet equal and bilateral. There is no full-thickness ulceration, no calor, no erythema, no purulence, no malodor, no fluctuance, no crepitus. Current Medications: Current Medications Sig/Salome Start time Last Medication Dose Route Stop Time Status Admin Albuterol Sulfate See Dose Q4-6 PRN PRN 03/17 1945 AC Insts (1) INH Ascorbic Acid 500 MG DAILY 03/18 0900 AC 03/19 PO 0845 Aspirin Buffered 81 MG QAM 03/18 0900 AC 03/19 PO 0845 Atorvastatin Calcium 80 MG 1700 03/18 1700 DC 03/18 PO 1802 Budesonide/ 2 PUF BID 03/17 2100 AC 03/19 Formoterol Fumarate INH 0845 Clopidogrel Bisulfate 75 MG DAILY 03/20 0900 AC PO Clopidogrel Bisulfate 75 MG DAILY 03/18 0900 DC 03/18 PO 0933 Cyanocobalamin 1,000 MCG DAILY 03/18 09 AC 03/19 PO 0845 Digoxin 0.125 MG 17003/18 1700 AC 03/18 PO 1802 Ezetimibe 10 MG DAILY 03/18 0900 AC 03/19 PO 0846 Ferrous Sulfate 325 MG TID 03/17 2100 AC 03/19 PO 0845 Heparin Sodium 25,000 UNIT Q24H 03/19 0930 AC (Porcine) IV Sodium Chloride 500 ML Heparin Sodium 25,000 UNIT Q24H 03/18 1430 DC (Porcine) IV Sodium Chloride 500 ML Hydromorphone HCl 1 MG Q6 PRN 03/17 194 AC 03/18 IV 1712 Insulin Aspart 0 TIDAC 03/18 0800 AC SC Insulin Detemir 4 UNITS QPM 03/17 2100 AC 03/18 SC 2229 Levothyroxine Sodium 0.025 MG DAILY AC 03/18 0700 AC 03/19 PO 0550 Morphine Sulfate 2 MG Q6P PRN 03/17 194 AC 03/18 IV 0759 Omeprazole 40 MG DAILY AC 03/19 0837 AC PO Oxycodone/ 2 TAB Q6P PRN 03/17 1945 AC 03/19 Acetaminophen PO 0049 Patient Medication 1 ED ONE ONE 03/18 1645 DC 03/18 Teaching ED 03/18 1646 1802 Sertraline HCl 50 MG DAILY 03/18 0900 AC 03/19 PO 0845 Sodium Chloride 1,000 ML Q10H 03/18 1100 DC 03/19 IV 0046 Dose Instructions: (1)Albuterol Sulfate: 1-2 PUF Results Last 48 Hours of Labs: Laboratory Tests 03/19 03/18 0645 2310 Chemistry Sodium (137 - 145 mmol/L) 147 H Potassium (3.5 - 5.1 mmol/L) 4.4 Chloride (98 - 107 mmol/L) 111 H Carbon Dioxide (22 - 30 mmol/L) 23 Anion Gap (5 - 16) 13 BUN (9 - 20 mg/dL) 88 H Creatinine (0.7 - 1.2 mg/dL) 2.3 H Estimated GFR (>60 ml/min) 29 L BUN/Creatinine Ratio (7 - 25 %) 38.3 H Total Bilirubin (0.2 - 1.3 mg/dL) 1.0 Direct Bilirubin (< 0.4 mg/dL) 0.7 H AST (17 - 59 U/L) 80 H ALT (21 - 72 U/L) 229 H Alkaline Phosphatase (< 127 U/L) 98 Total Protein (6.3 - 8.2 g/dL) 7.4 Albumin (3.5 - 5.0 g/dL) 3.0 L Hematology CBC w Diff NO MAN DIFF REQ NO MAN DIFF REQ WBC (4.8 - 10.8 /CUMM) 12.6 H 12.2 H RBC (4.70 - 6.10 /CUMM) 2.89 L 2.98 L Hgb (14.0 - 18.0 G/DL) 8.4 L 8.7 L Hct (42 - 52 %) 26.2 L 27.0 L MCV (80.0 - 94.0 FL) 90.7 90.5 MCH (27.0 - 31.0 PG) 29.1 29.3 MCHC (33.0 - 37.0 G/DL) 32.1 L 32.4 L RDW (11.5 - 14.5 %) 23.1 H 23.0 H Plt Count (130 - 400 /CUMM) 155 156 MPV (7.4 - 10.4 FL) 8.1 7.6 Gran % (42.2 - 75.2 %) 86.7 H 84.7 H Lymphocytes % (20.5 - 51.1 %) 3.1 L 4.1 L Monocytes % (1.7 - 9.3 %) 9.8 H 10.5 H Eosinophils % (0 - 5 %) 0.4 0.6 Basophils % (0.0 - 2.0 %) 0 0.1 Absolute Granulocytes (1.4 - 6.5 /CUMM) 10.9 H 10.3 H Absolute Lymphocytes (1.2 - 3.4 /CUMM) 0.4 L 0.5 L Absolute Monocytes (0.10 - 0.60 /CUMM) 1.2 H 1.3 H Absolute Eosinophils (0.0 - 0.7 /CUMM) 0.1 0.1 Absolute Basophils (0.0 - 0.2 /CUMM) 0 0 03/18 03/18 1824 0694 Chemistry Sodium (137 - 145 mmol/L) 144 Potassium (3.5 - 5.1 mmol/L) 4.7 Chloride (98 - 107 mmol/L) 108 H Carbon Dioxide (22 - 30 mmol/L) 23 Anion Gap (5 - 16) 12 BUN (9 - 20 mg/dL) 87 H Creatinine (0.7 - 1.2 mg/dL) 2.3 H Estimated GFR (>60 ml/min) 29 L BUN/Creatinine Ratio (7 - 25 %) 37.8 H Total Bilirubin (0.2 - 1.3 mg/dL) 0.7 Direct Bilirubin (< 0.4 mg/dL) 0.5 H AST (17 - 59 U/L) 102 H ALT (21 - 72 U/L) 267 H Alkaline Phosphatase (< 127 U/L) 92 Total Protein (6.3 - 8.2 g/dL) 7.1 Albumin (3.5 - 5.0 g/dL) 2.9 L Coagulation APTT (25 - 37 SEC) 35 Hematology CBC w Diff NO MAN DIFF REQ WBC (4.8 - 10.8 /CUMM) 12.0 H RBC (4.70 - 6.10 /CUMM) 2.39 L Hgb (14.0 - 18.0 G/DL) 7.0 *L Hct (42 - 52 %) 21.8 L MCV (80.0 - 94.0 FL) 91.4 MCH (27.0 - 31.0 PG) 29.5 MCHC (33.0 - 37.0 G/DL) 32.3 L RDW (11.5 - 14.5 %) 22.8 H Plt Count (130 - 400 /CUMM) 157 MPV (7.4 - 10.4 FL) 8.4 Gran % (42.2 - 75.2 %) 86.2 H Lymphocytes % (20.5 - 51.1 %) 3.9 L Monocytes % (1.7 - 9.3 %) 9.4 H Eosinophils % (0 - 5 %) 0.5 Basophils % (0.0 - 2.0 %) 0 Absolute Granulocytes (1.4 - 6.5 /CUMM) 10.3 H Absolute Lymphocytes (1.2 - 3.4 /CUMM) 0.5 L Absolute Monocytes (0.10 - 0.60 /CUMM) 1.1 H Absolute Eosinophils (0.0 - 0.7 /CUMM) 0.1 Absolute Basophils (0.0 - 0.2 /CUMM) 0 Toxicology Digoxin (0.8 - 2.0 ng/mL) 1.0 03/17 1430 Chemistry Sodium (137 - 145 mmol/L) 143 Potassium (3.5 - 5.1 mmol/L) 4.5 Chloride (98 - 107 mmol/L) 106 Carbon Dioxide (22 - 30 mmol/L) 25 Anion Gap (5 - 16) 12 BUN (9 - 20 mg/dL) 87 H Creatinine (0.7 - 1.2 mg/dL) 2.3 H Estimated GFR (>60 ml/min) 29 L BUN/Creatinine Ratio (7 - 25 %) 37.8 H Glucose (65 - 99 mg/dL) 135 H Calcium (8.4 - 10.2 mg/dL) 9.0 Total Bilirubin (0.2 - 1.3 mg/dL) 0.7 AST (17 - 59 U/L) 143 H ALT (21 - 72 U/L) 324 H Alkaline Phosphatase (< 127 U/L) 109 Total Protein (6.3 - 8.2 g/dL) 7.3 Albumin (3.5 - 5.0 g/dL) 3.1 L Globulin (1.9 - 4.2 gm/dL) 4.2 Albumin/Globulin Ratio (1.1 - 2.2 %) 0.7 L Coagulation PT (9.4 - 12.5 SEC) 15.5 H INR (0.90 - 1.17) 1.42 H D-Dimer High Sensitivty (0 - 243 ng/ml) 2176 H Hematology CBC w Diff NO MAN DIFF REQ WBC (4.8 - 10.8 /CUMM) 13.0 H RBC (4.70 - 6.10 /CUMM) 2.61 L Hgb (14.0 - 18.0 G/DL) 7.8 L Hct (42 - 52 %) 23.8 L MCV (80.0 - 94.0 FL) 91.0 MCH (27.0 - 31.0 PG) 29.9 MCHC (33.0 - 37.0 G/DL) 32.8 L RDW (11.5 - 14.5 %) 21.4 H Plt Count (130 - 400 /CUMM) 157 MPV (7.4 - 10.4 FL) 8.3 Gran % (42.2 - 75.2 %) 89.8 H Lymphocytes % (20.5 - 51.1 %) 2.5 L Monocytes % (1.7 - 9.3 %) 7.6 Eosinophils % (0 - 5 %) 0.1 Basophils % (0.0 - 2.0 %) 0 Absolute Granulocytes (1.4 - 6.5 /CUMM) 11.7 H Absolute Lymphocytes (1.2 - 3.4 /CUMM) 0.3 L Absolute Monocytes (0.10 - 0.60 /CUMM) 1.0 H Absolute Eosinophils (0.0 - 0.7 /CUMM) 0 Absolute Basophils (0.0 - 0.2 /CUMM) 0 Assessment/Plan Assessment/Plan 67-year-old male with end-stage peripheral arterial disease status post revascularization of the right lower extremity, with increasing and demarcating tissue loss Patient was seen and evaluated at bedside. A nonadherent dressing was placed on the right foot, the patient continues to refuse Betadine as he believes he is allergic to it. We'll continue to follow up the vascular surgery plan, given the patient's significant poikilothermia and cyanosis throughout the foot and extending proximal to the ankle joint, I consider the patient a very poor surgical candidate for podiatric surgical intervention, and deem him high risk for a major amputation. I will follow up on this patient over the weekend, and we'll review the vascular intervention performed Thursday as planned.
[2018-03-19 12:52] LABS: PTT 35 SEC (25-37)
--- NOTE | 2018-03-19 13:28 | Discharge Summary ---
Hospital Course Allergies: Coded Allergies: No Known Allergies (11/13/17)
[2018-03-19 14:36] VITALS: BP 120/56
--- NOTE | 2018-03-19 15:51 | Cons- Nephrology ---
General Information and HPI Consulting Request Date of Consult: 03/19/18 Requested By: Ben BROWN,Ryan Hennessy Reason for Consult: GRECIA on CKD Source of Information: patient, old records Exam Limitations: no limitations History of Present Illness: Patient is a 67-year-old male with a past medical history most significant for stage III chronic kidney disease with a baseline creatinine in the meantime oncevariably proteinuriclikely secondary to hypertensive nephrosclerosis and vascular disease, severe peripheral vascular disease status post left femoral bypass and multiple toe amputations, DM - 10 year history, HTN - 30 year history , CHF - LVEF 40% with moderate TR who presents with LLE pain. Patient underwent an angiogram of his left lower extremity [address] Gage. He was noted to have significant distal common femoral disease extending into the profunda. It's not clear exactly how much contrast was used for the procedure. He now comes in to the hospital for pain control with plans for a left common femoral endarterectomy on Thursday. On his lab work, the patient was noted to have a creatinine of 2.3. He denies volume depletion. He does report continuing his Lasix which is 40 mg daily. Denies NSAID use for his pain. He denies any urinary difficulty. Pt currently complains of lower extremity pain. No SOB. Allergies/Medications Allergies: Coded Allergies: No Known Allergies (11/13/17) Home Med List: Albuterol Sulfate (Ventolin Hfa) 90 MCG HFA.AER.AD 1-2 PUF INH AD PRN COPD ( Reported) Ascorbate Calcium (Vitamin C) 500 MG TABLET 500 MG PO QAM SUPPLEMENT ( Reported) Aspirin (Ecotrin*) 81 MG TABLET.DR 1 TAB PO QAM HEART/BLOOD (Reported) Atorvastatin Calcium 80 MG TABLET 1 TAB PO DAILY PVD (Reported) Budesonide/Formoterol Fumarate (Symbicort 160-4.5 Mcg Inhaler) 160 MCG-4.5 MCG/ ACTUATION HFA.AER.AD 2 PUF INH BID BREATHING PROBLEMS (Reported) Clopidogrel Bisulfate (Plavix) 75 MG TABLET 1 TAB PO DAILY BLOOD THINNER ( Reported) Cyanocobalamin (Vitamin B-12) 1,000 MCG TABLET 1 TAB PO DAILY SUPPLEMENT ( Reported) Digoxin (Lanoxin) 125 MCG TABLET 0.125 MG PO 1700 HFrEF . Ergocalciferol (Vitamin D2) (Vitamin D2) 50,000 UNIT CAPSULE 1 TAB PO QSUN SUPPLEMENT (Reported) Ezetimibe (Zetia) 10 MG TABLET 10 MG PO DAILY CHOLESTEROL (Reported) Ferrous Sulfate 325 MG (65 MG IRON) TABLET 1 TAB PO TID IRON, VITAMIN ( Reported) Fish Oil/Dha/Epa (Fish Oil 1,200 MG Fish Oil) 1,200 MG-144 MG-216 MG CAPSULE 1 CAP PO DAILY SUPPLEMENT (Reported) Furosemide (Lasix) 40 MG TABLET 1 TAB PO DAILY CHF Please take as prescribed and follow up with your doctor. Insulin Glargine,Hum.rec.anlog (Lantus Solostar) 100 UNIT/ML (3 ML) INSULN.PEN 4 UNIT SC QPM dm (Reported) Levothyroxine Sodium (Synthroid) 25 MCG TABLET 0.025 MG PO DAILY AC HYPOTHYROIDISM . Oxycodone HCl/Acetaminophen (Percocet 7.5-325 MG Tablet) 7.5 MG-325 MG TABLET 1 TAB PO BID PAIN (Reported) Sertraline HCl 50 MG TABLET 50 MG PO DAILY DEPRESSION (Reported) Sitagliptin Phosphate (Januvia) 100 MG TABLET 1 TAB PO DAILY DIABETES ( Reported) Current Medications: Current Medications Sig/Salome Start time Last Medication Dose Route Stop Time Status Admin Albuterol Sulfate See Dose Q4-6 PRN PRN 03/17 194 AC Insts (1) INH Ascorbic Acid 500 MG DAILY 03/18 0900 AC 03/19 PO 0845 Aspirin Buffered 81 MG QAM 03/18 0900 AC 03/19 PO 0845 Atorvastatin Calcium 80 MG 1700 03/18 1700 DC 03/18 PO 1802 Budesonide/ 2 PUF BID 03/17 2100 AC 03/19 Formoterol Fumarate INH 0845 Clopidogrel Bisulfate 75 MG DAILY 03/20 0900 AC PO Clopidogrel Bisulfate 75 MG ONCE ONE 03/19 1445 DC PO 03/19 1446 Clopidogrel Bisulfate 75 MG DAILY 03/18 0900 DC 03/18 PO 0933 Cyanocobalamin 1,000 MCG DAILY 03/18 0900 AC 03/19 PO 0845 Dextrose/Sodium 1,000 ML Q13H 03/22 0600 AC Chloride IV Digoxin 0.125 MG 1700 03/18 1700 AC 03/18 PO 1802 Ezetimibe 10 MG DAILY 03/18 0900 AC 03/19 PO 0846 Ferrous Sulfate 325 MG TID 03/17 2100 AC 03/19 PO 1217 Heparin Sodium 25,000 UNIT Q24H 03/19 0930 AC 03/19 (Porcine) IV 1219 Sodium Chloride 500 ML Heparin Sodium 25,000 UNIT Q24H 03/18 1430 DC (Porcine) IV Sodium Chloride 500 ML Hydromorphone HCl 1 MG Q6 PRN 03/17 1945 AC 03/18 IV 1712 Insulin Aspart 0 TIDAC 03/18 0800 AC SC Insulin Detemir 4 UNITS QPM 03/17 2100 AC 03/18 SC 03/21 1600 2229 Insulin Human Regular 0 Q6 03/22 0000 AC SC Levothyroxine Sodium 0.025 MG DAILY AC 03/18 0700 AC 03/19 PO 0550 Morphine Sulfate 2 MG Q6P PRN 03/17 1945 AC 03/18 IV 0759 Omeprazole 40 MG DAILY AC 03/19 0837 AC 03/19 PO 1217 Oxycodone/ 2 TAB Q6P PRN 03/17 194 AC 03/19 Acetaminophen PO 1221 Patient Medication 1 ED ONE ONE 03/18 1645 CO 03/18 Teaching ED 03/18 1646 1802 Sertraline HCl 50 MG DAILY 03/18 0900 AC 03/19 PO 0845 Sodium Chloride 1,000 ML Q10H 03/18 1100 DC 03/19 IV 0046 Dose Instructions: (1)Albuterol Sulfate: 1-2 PUF Review of Systems Review of Systems: Complete 14 point ROS neg except as per HPI Past History Travel History Traveled to [place] past 21 day No Medical History Blood Transfusion Hx: Yes Neurological: GAIT ABDNORMALITY WEAKNESS EENT: NONE Cardiovascular: aortic stenosis, CAD, CHF, hypertension, hyperlipidemia, NSTEMI, PVD Respiratory: NONE Gastrointestinal: appt for pill cam cancelled for today due to ED visit gi bleed Hepatic: NONE Renal: urinary incontinence, CKD Musculoskeletal: CHRONIC OSTEOMYLITIS LFT FOOT- TOES AMP X5 RGHT FOOT- TOES AMP X4 Psychiatric: depression Endocrine: diabetes Blood Disorders: anemia with occ tranfusions Cancer(s): NONE [employer]/Reproductive: NONE Other Medical Hx: aneursym in left groin Surgical History Surgical History: CABG, hernia repair-umbilical, right shoulddr sx aVR bypass of the left (fem/pop) leg? amputation of 9 toes PTCA ESWL by Dr[address] Ledesma toe amputations bilaterally aortic valve, LE stents Family History Relations & Conditions If Any: FATHER (CAD). , Age 40-50; Cause: CAD (coronary artery disease). MOTHER (Pancreatic cancer). BROTHER (HTN). Psychosocial History Who Do You Live With? spouse Services at Home: Nursing Primary Language: [place] Smoking Status: Former Smoker ETOH Use: denies use Illicit Drug Use: denies illicit drug use Functional Ability ADLs Independent: dressing, eating, toileting, bathing. Ambulation: independent IADLs Independent: shopping, housework, finances, food prep, telephone, transportation , medication admin. Exam & Diagnostic Data Vital Signs and I&O Vital Signs Date Time Temp Pulse Resp B/P B/P Pulse O2 O2 Flow FiO2 Mean Ox Delivery Rate 03/19 1436 97.9 66 20 120/56 96 Room Air 03/19 0653 97.7 57 16 106/52 94 Room Air 03/18 2159 98.5 60 16 112/56 96 Room Air 03/18 1802 62 118/56 Intake & Output 03/19 1600 03/19 0400 03/18 1600 03/18 0400 03/17 1600 03/17 0400 Intake Total 587 843 1318 240 0 Output Total 670 800 500 250 Balance 294 -80 700 -10 0 Intake, Blood 300 Product Intake, IV 800 300 400 Intake, Oral 164 120 800 240 0 Number 0 0 0 Bowel Movements Output, Urine 670 800 500 250 Patient 171 lb 170 lb 180 lb 180 lb Weight Weight Bed scale Measurement Method Physical Exam: Gen - ok appearing Head - NCAT Eyes - anicteric sclera, EOMI Neck - supple, JVP up CV - RRR, no m/r/g Chest - clear, no w/r/r Abd - soft, NTND Upper ext - warm, no edema Lower ext - warm, no significant edema Skin - hyperpigmentation of lower ext Neuro - AOX3, grossly nonfocal Results Pertinent Lab Results: Laboratory Tests 03/19 03/19 1228 0645 Chemistry Sodium (137 - 145 mmol/L) 147 H Potassium (3.5 - 5.1 mmol/L) 4.4 Chloride (98 - 107 mmol/L) 111 H Carbon Dioxide (22 - 30 mmol/L) 23 Anion Gap (5 - 16) 13 BUN (9 - 20 mg/dL) 88 H Creatinine (0.7 - 1.2 mg/dL) 2.3 H Estimated GFR (>60 ml/min) 29 L BUN/Creatinine Ratio (7 - 25 %) 38.3 H Total Bilirubin (0.2 - 1.3 mg/dL) 1.0 Direct Bilirubin (< 0.4 mg/dL) 0.7 H AST (17 - 59 U/L) 80 H ALT (21 - 72 U/L) 229 H Alkaline Phosphatase (< 127 U/L) 98 Total Protein (6.3 - 8.2 g/dL) 7.4 Albumin (3.5 - 5.0 g/dL) 3.0 L Coagulation APTT (25 - 37 SEC) 35 Hematology CBC w Diff NO MAN DIFF REQ WBC (4.8 - 10.8 /CUMM) 12.6 H RBC (4.70 - 6.10 /CUMM) 2.89 L Hgb (14.0 - 18.0 G/DL) 8.4 L Hct (42 - 52 %) 26.2 L MCV (80.0 - 94.0 FL) 90.7 MCH (27.0 - 31.0 PG) 29.1 MCHC (33.0 - 37.0 G/DL) 32.1 L RDW (11.5 - 14.5 %) 23.1 H Plt Count (130 - 400 /CUMM) 155 MPV (7.4 - 10.4 FL) 8.1 Gran % (42.2 - 75.2 %) 86.7 H Lymphocytes % (20.5 - 51.1 %) 3.1 L Monocytes % (1.7 - 9.3 %) 9.8 H Eosinophils % (0 - 5 %) 0.4 Basophils % (0.0 - 2.0 %) 0 Absolute Granulocytes (1.4 - 6.5 /CUMM) 10.9 H Absolute Lymphocytes (1.2 - 3.4 /CUMM) 0.4 L Absolute Monocytes (0.10 - 0.60 /CUMM) 1.2 H Absolute Eosinophils (0.0 - 0.7 /CUMM) 0.1 Absolute Basophils (0.0 - 0.2 /CUMM) 0 03/18 03/18 2310 1824 Coagulation APTT (25 - 37 SEC) 35 Hematology CBC w Diff NO MAN DIFF REQ WBC (4.8 - 10.8 /CUMM) 12.2 H RBC (4.70 - 6.10 /CUMM) 2.98 L Hgb (14.0 - 18.0 G/DL) 8.7 L Hct (42 - 52 %) 27.0 L MCV (80.0 - 94.0 FL) 90.5 MCH (27.0 - 31.0 PG) 29.3 MCHC (33.0 - 37.0 G/DL) 32.4 L RDW (11.5 - 14.5 %) 23.0 H Plt Count (130 - 400 /CUMM) 156 MPV (7.4 - 10.4 FL) 7.6 Gran % (42.2 - 75.2 %) 84.7 H Lymphocytes % (20.5 - 51.1 %) 4.1 L Monocytes % (1.7 - 9.3 %) 10.5 H Eosinophils % (0 - 5 %) 0.6 Basophils % (0.0 - 2.0 %) 0.1 Absolute Granulocytes (1.4 - 6.5 /CUMM) 10.3 H Absolute Lymphocytes (1.2 - 3.4 /CUMM) 0.5 L Absolute Monocytes (0.10 - 0.60 /CUMM) 1.3 H Absolute Eosinophils (0.0 - 0.7 /CUMM) 0.1 Absolute Basophils (0.0 - 0.2 /CUMM) 0 03/18 03/17 0655 1430 Chemistry Sodium (137 - 145 mmol/L) 144 143 Potassium (3.5 - 5.1 mmol/L) 4.7 4.5 Chloride (98 - 107 mmol/L) 108 H 106 Carbon Dioxide (22 - 30 mmol/L) 23 25 Anion Gap (5 - 16) 12 12 BUN (9 - 20 mg/dL) 87 H 87 H Creatinine (0.7 - 1.2 mg/dL) 2.3 H 2.3 H Estimated GFR (>60 ml/min) 29 L 29 L BUN/Creatinine Ratio (7 - 25 %) 37.8 H 37.8 H Glucose (65 - 99 mg/dL) 135 H Calcium (8.4 - 10.2 mg/dL) 9.0 Total Bilirubin (0.2 - 1.3 mg/dL) 0.7 0.7 Direct Bilirubin (< 0.4 mg/dL) 0.5 H AST (17 - 59 U/L) 102 H 143 H ALT (21 - 72 U/L) 267 H 324 H Alkaline Phosphatase (< 127 U/L) 92 109 Total Protein (6.3 - 8.2 g/dL) 7.1 7.3 Albumin (3.5 - 5.0 g/dL) 2.9 L 3.1 L Globulin (1.9 - 4.2 gm/dL) 4.2 Albumin/Globulin Ratio (1.1 - 2.2 %) 0.7 L Coagulation PT (9.4 - 12.5 SEC) 15.5 H INR (0.90 - 1.17) 1.42 H D-Dimer High Sensitivty (0 - 243 ng/ml) 2176 H Hematology CBC w Diff NO MAN DIFF REQ NO MAN DIFF REQ WBC (4.8 - 10.8 /CUMM) 12.0 H 13.0 H RBC (4.70 - 6.10 /CUMM) 2.39 L 2.61 L Hgb (14.0 - 18.0 G/DL) 7.0 *L 7.8 L Hct (42 - 52 %) 21.8 L 23.8 L MCV (80.0 - 94.0 FL) 91.4 91.0 MCH (27.0 - 31.0 PG) 29.5 29.9 MCHC (33.0 - 37.0 G/DL) 32.3 L 32.8 L RDW (11.5 - 14.5 %) 22.8 H 21.4 H Plt Count (130 - 400 /CUMM) 157 157 MPV (7.4 - 10.4 FL) 8.4 8.3 Gran % (42.2 - 75.2 %) 86.2 H 89.8 H Lymphocytes % (20.5 - 51.1 %) 3.9 L 2.5 L Monocytes % (1.7 - 9.3 %) 9.4 H 7.6 Eosinophils % (0 - 5 %) 0.5 0.1 Basophils % (0.0 - 2.0 %) 0 0 Absolute Granulocytes (1.4 - 6.5 /CUMM) 10.3 H 11.7 H Absolute Lymphocytes (1.2 - 3.4 /CUMM) 0.5 L 0.3 L Absolute Monocytes (0.10 - 0.60 /CUMM) 1.1 H 1.0 H Absolute Eosinophils (0.0 - 0.7 /CUMM) 0.1 0 Absolute Basophils (0.0 - 0.2 /CUMM) 0 0 Toxicology Digoxin (0.8 - 2.0 ng/mL) 1.0 Assessment/Plan Assessment/Recommendations Assessment: GRECIA - Likely 2/2 contrast administration last week. Insult generally can last 6 -10 days. Not clear at this time exactly how much contrast was used although it sounds minimal. Also on the ddx includes cholesterol emboli although there is no peripheral eosinophilia - can also check complements. Although history not strongly suggesting, is getting IVF to rule out pre-renal azotemia. Should also get a bladder scan to rule out obstruction. Stage III CKD - baseline SCr in mid 1's - variably proteinuric - likely 2/2 hypertensive nephrosclerosis, chronic cardiorenal syndrome, and vascular disease. Anemia - Out of proportion to kidney disease. Stool is guaic positive - GI following. Hypernatremia - Likely reflective of decreased free water intake - OK to drink free water to thirst. Not polyuric to suggest DI. Recommendations: -Hold diuretics today -Would hold off though on additional IVF -Check Uri, UCr -C3, C4 -Will f/u with Dr. Gage re: contrast amount -Renal US -Free water to thirst Please call [phone] with ?'s
[2018-03-19 19:21] LABS: PTT 76 SEC (25-37)
--- NOTE | 2018-03-19 20:03 | ULTRASOUND REPORT ---
EXAMINATION: US RETROPERITONEAL COMPLETE (RENAL) CLINICAL INFORMATION: Hypertensive nephrosclerosis. COMPARISON: Prior ultrasound of the kidneys and bladder November 2017 TECHNIQUE: Real-time imaging of the kidneys and bladder. FINDINGS: RIGHT KIDNEY: Right kidney measures 10.8 x 5.3 x 5.5 cm. There is a 2 cm cyst in the midpole and 7 mm cyst in lower pole. There is a 3 mm nonobstructing stone in the midpole. LEFT KIDNEY: The kidney measures 12.6 x 5.6 x 4.7 cm. There are 3 cysts present largest measuring 5 cm in the upper pole overall unchanged BLADDER: Well-distended and normal. Bilateral ureteral jets are demonstrated. Prevoid bladder volume is 8.8 mL. IMPRESSION: Cysts in both kidneys unchanged. Nonobstructing stone midpole right kidney unchanged. Otherwise unremarkable.
--- NOTE | 2018-03-19 21:03 | PN- Cardiology ---
Subjective Subjective: * Patient continues to complain of right leg discomfort. * persistent renal insufficiency. * anemia continues post blood transfusion Objective Vital Signs and I&Os Vital Signs Date Time Temp Pulse Resp B/P B/P Pulse O2 O2 Flow FiO2 Mean Ox Delivery Rate 03/19 1603 66 120/56 03/19 1436 97.9 66 20 120/56 96 Room Air 03/19 0653 97.7 57 16 106/52 94 Room Air 03/18 2159 98.5 60 16 112/56 96 Room Air Intake & Output 03/19 1600 03/19 0800 03/19 0000 03/18 1600 03/18 0800 03/18 0000 Intake Total 64 306 324 1446 200 240 Output Total 520 600 350 500 250 Balance -456 300 370 500 200 -10 Intake, Blood 300 Product Intake, IV 800 300 400 Intake, Oral 64 100 120 600 200 240 Number 0 0 0 Bowel Movements Output, Urine 520 600 350 500 250 Patient 171 lb 170 lb 180 lb 180 lb Weight Weight Bed scale Bed scale Measurement Method Physical Exam: General: WD/WN male in NAD; alert and oriented x 3 HEENT: NC/AT, PERRL, EOMI Neck: no JVD, no carotid bruit Heart: RRR with 2/6 systolic murmur Lungs: clear bilaterally Abdomen: soft, NT, +ve bowel sounds Extremities: 1+ bilateral leg edema, venous stasis changes bilaterally, toe amputations bilaterally Assessment/Plan Assessment/Plan * This patient has had a NSTEMI within the past six weeks. He also has renal insufficiency and hepatic insufficiency. As such, he is at increased risk for surgery but this risk is in the 5% range and is not prohibitive for non-elective surgery. He is profoundly anemic and is nevertheless free of chest pain which portends a good prognosis for tolerance of surgery. His ECG was reviewed and is negative for ischemic changes. * Would transfuse to an H/H of about 08/01 prior to surgery. * This patient may have anemia due to renal insuffciency however a prior workup disclosed an increased reticulocyte count instead of a low retic count that goes along better with bleeding than decreased production. Guaiac all stools and follow his H/H. Okay to use IV heparin for now with careful monitoring for bleeding. * This patient has evidence of hepatic insufficiency likely related to RV dysfunction. Obtain an echocardiogram. Stop Atorvastatin. Continue telemetry? No
[2018-03-19 21:35] VITALS: BP 121/60
--- NOTE | 2018-03-20 05:36 | PN- Housestaff ---
See Addendum Subjective Follow-up For: Peripheral vascular disease right leg pain Subjective: Overnight patient had a large melenic bowel movement that was guaiac positive. He denies nausea, vomiting, abdominal pain. He is unsure if his previous bowel movement were dark stools. His PTT this morning 119 and according to nursing protocol heparin will be held for a few hours and redosed. Review of Systems Constitutional: Reports: see HPI. Objective Last 24 Hrs of Vital Signs/I&O Vital Signs Date Time Temp Pulse Resp B/P B/P Pulse O2 O2 Flow FiO2 Mean Ox Delivery Rate 03/20 0630 97.5 54 20 118/60 96 Room Air 03/19 2135 97.8 58 121/60 95 Room Air 03/19 1603 66 120/56 03/19 1436 97.9 66 20 120/56 96 Room Air Intake & Output 03/20 1600 03/20 0800 03/20 0000 Intake Total 928 688 Output Total 450 650 Balance 478 38 Intake, IV 208 88 Intake, Oral 720 600 Number 1 0 Bowel Movements Output, Urine 450 650 Patient 169 lb Weight Weight Bed scale Measurement Method Physical Exam General Appearance: Alert, Oriented X3, Cooperative, No Acute Distress Cardiovascular: Regular Rate, Normal S1, Normal S2 Lungs: Clear to Auscultation, Normal Air Movement Abdomen: Normal Bowel Sounds, Soft, No Tenderness Extremities: multiple toe amputations and ulcerative nonhealing wounds Current Medications: Current Medications Sig/Salome Start time Last Medication Dose Route Stop Time Status Admin Albuterol Sulfate See Dose Q4-6 PRN PRN 03/17 194 AC Insts (1) INH Ascorbic Acid 500 MG DAILY 03/18 09 AC 03/19 PO 0845 Aspirin Buffered 81 MG QAM 03/18 09 AC 03/19 PO 0845 Budesonide/ 2 PUF BID 03/17 2100 AC 03/19 Formoterol Fumarate INH 2052 Clopidogrel Bisulfate 75 MG DAILY 03/20 09 AC PO Clopidogrel Bisulfate 75 MG ONCE ONE 03/19 1445 DC 03/19 PO 03/19 1446 1603 Cyanocobalamin 1,000 MCG DAILY 03/18 09 AC 03/19 PO 0845 Dextrose/Sodium 1,000 ML Q13H 03/22 0600 CAN Chloride IV Digoxin 0.125 MG 1700 03/18 1700 AC 03/19 PO 1603 Ezetimibe 10 MG DAILY 03/18 0900 AC 03/19 PO 0846 Ferrous Sulfate 325 MG TID 03/17 2100 AC 03/19 PO 2051 Heparin Sodium 25,000 UNIT Q24H 03/19 0930 AC 03/20 (Porcine) IV 0854 Sodium Chloride 500 ML Hydromorphone HCl 1 MG Q6 PRN 03/17 194 AC 03/18 IV 1712 Insulin Aspart 0 TIDAC 03/18 0800 AC 03/19 SC 1604 Insulin Detemir 4 UNITS QPM 03/17 2100 AC 03/19 SC 03/21 1600 2105 Insulin Human Regular 0 Q6 03/22 0000 AC SC Levothyroxine Sodium 0.025 MG DAILY AC 03/18 0700 AC 03/20 PO 0610 Morphine Sulfate 2 MG Q6P PRN 03/17 1945 AC 03/18 IV 0759 Omeprazole 40 MG DAILY AC 03/19 0837 AC 03/20 PO 0610 Oxycodone/ 2 TAB Q6P PRN 03/17 1945 AC 03/20 Acetaminophen PO 0243 Sertraline HCl 50 MG DAILY 03/18 0900 AC 03/19 PO 0845 Sodium Chloride 1,000 ML Q10H 03/18 1100 DC 03/19 IV 0046 Dose Instructions: (1)Albuterol Sulfate: 1-2 PUF Last 24 Hrs of Lab/Sadi Results Last 24 Hrs of Labs/Mics: Laboratory Tests 03/20/18 0617: Anion Gap 12, Estimated GFR 33 L, BUN/Creatinine Ratio 44.5 H, Total Bilirubin 0.7, Direct Bilirubin 0.6 H, AST 58, ALT 176 H, Alkaline Phosphatase 95, Total Protein 6.8, Albumin 2.7 L, APTT 119 *H, CBC w Diff NO MAN DIFF REQ, RBC 2.58 L, MCV 90.2, MCH 29.3, MCHC 32.5 L, RDW 23.8 H, MPV 8.2, Gran % 81.5 H, Lymphocytes % 5.3 L, Monocytes % 11.6 H, Eosinophils % 1.6, Basophils % 0, Absolute Granulocytes 9.6 H, Absolute Lymphocytes 0.6 L, Absolute Monocytes 1.4 H, Absolute Eosinophils 0.2, Absolute Basophils 0 03/19/182114: Ur Random Creatinine 85.0, Ur Random Sodium 15 L, Ur Random Potassium 34.2, Fraction Sodium Excret 0.3 03/19/18 1804: APTT 76 H 03/19/18 1228: APTT 35 Assessment/Plan Assessment: Mr. Almanzar is a 67-year-old male with PMH of aortic stenosis, CAD s/p CABG (2016), CHF (last Echo 12/30/2017) with LVEF of 40-45% and anterior wall akinsis, hypertension, hyperlipidemia, NSTEMI, PVD, urinary incontinence, CKD, and chronic osteomyelities w/ toes amputation who presented to the ED with complains of progressive worsening right lower leg pain. Assessment: 1. Severe stenosis in the proximal superficial femoral artery. 2. GRECIA on CKD 3. Transaminitis 4. Anemia 5. History of PVD 6. History of Hypertension, Hyperlipidemia Plan: * He has had colonoscopy/EGD/PillCam in the past with no conclusive results. * He is stable from a GI standpoint to be started on IV Heparin. * If signs of overt GI bleeding, GI to be notified. * Continue IV Heparin drip. * We will transfuse him 1 unit of PRBC * His Doppler U/S shows probable occluded profunda femoral artery and severe stenosis in the proximal superficial femoral artery. * He will require right common femoral endarterectomy which is scheduled for Thursday. * Echocardiogram to assess for RV dysfunction prior to his procedure - pending. * He is however, stable from a cardiac standpoint for his elective vascular endarterectomy * Podiatry input appreciated. * He will be receiving a dye load for his angiogram on Thursday. * His LFTs are trending down. Unclear about the elevation. * Pain control with Percocet (mild) , IV morphine (moderate) and dilaudidd ( severe). * Continue all home meds: aspirin, plavix, sertraline, levothyroxine, albuterol, symbicort. Hold oral hypoglycemics and Lasix. * Nephro recommendations appreciated * Renal ultrasound showed unchanged cysts in bilateral kidneys * Complement pending * Urine lytes * Insulin SS with Accucheks * Levemir 4units QPM * Diet: Heart Healthy * DVT Prophylaxis: IV Heparin * Code: Full Code Problem List: 1. Peripheral vascular disease 2. GI bleed Pain Ratin Pain Location: RLE Pain Goal: Pain 7 or less Pain Plan: Morphine Tomorrow's Labs & Rationales: CBC, BEP, PTT
[2018-03-20 06:30] VITALS: BP 118/60
[2018-03-20 06:44] LABS: ABSOLUTE BASOPHIL COUNT 0 /CUMM (0.0-0.2); ABSOLUTE EOSINOPHIL COUNT 0.2 /CUMM (0.0-0.7); ABSOLUTE GRANULOCYTE CT 9.6 /CUMM (1.4-6.5); ABSOLUTE LYMPH COUNT 0.6 /CUMM (1.2-3.4); ABSOLUTE MONOCYTE COUNT 1.4 /CUMM (0.10-0.60); BASOPHIL % 0 % (0.0-2.0); EOSINOPHIL % 1.6 % (0-5); GRANULOCYTE % 81.5 % (42.2-75.2); HEMATOCRIT 23.3 % (42-52); MEAN CORPUSCULAR HGB 29.3 PG (27.0-31.0); MEAN CORPUSCULAR HGB CONC 32.5 G/DL (33.0-37.0); MEAN CORPUSCULAR VOLUME 90.2 FL (80.0-94.0); MEAN PLATELET VOLUME 8.2 FL (7.4-10.4); PLATELET COUNT 151 /CUMM (130-400); RBC DISTRIBUTION WIDTH 23.8 % (11.5-14.5); RED BLOOD CELL CT 2.58 /CUMM (4.70-6.10); WHITE BLOOD CELL COUNT 11.8 /CUMM (4.8-10.8)
[2018-03-20 07:09] LABS: PTT 119 SEC (25-37)
[2018-03-20 14:38] VITALS: BP 115/60
[2018-03-20 15:51] LABS: PTT 65 SEC (25-37)
[2018-03-20 20:06] LABS: ABSOLUTE BASOPHIL COUNT 0 /CUMM (0.0-0.2); ABSOLUTE EOSINOPHIL COUNT 0.2 /CUMM (0.0-0.7); ABSOLUTE GRANULOCYTE CT 9.8 /CUMM (1.4-6.5); ABSOLUTE LYMPH COUNT 0.5 /CUMM (1.2-3.4); ABSOLUTE MONOCYTE COUNT 1.1 /CUMM (0.10-0.60); BASOPHIL % 0.1 % (0.0-2.0); EOSINOPHIL % 1.5 % (0-5); GRANULOCYTE % 84.6 % (42.2-75.2); MEAN CORPUSCULAR HGB 28.9 PG (27.0-31.0); MEAN CORPUSCULAR HGB CONC 31.9 G/DL (33.0-37.0); MEAN CORPUSCULAR VOLUME 90.7 FL (80.0-94.0); MEAN PLATELET VOLUME 7.5 FL (7.4-10.4); PLATELET COUNT 159 /CUMM (130-400); RBC DISTRIBUTION WIDTH 22.3 % (11.5-14.5); RED BLOOD CELL CT 2.98 /CUMM (4.70-6.10); WHITE BLOOD CELL COUNT 11.6 /CUMM (4.8-10.8)
[2018-03-20 23:11] VITALS: BP 124/50
[2018-03-21 04:43] LABS: PTT 71 SEC (25-37)
[2018-03-21 07:33] VITALS: BP 132/64
[2018-03-21 08:13] LABS: ABSOLUTE BASOPHIL COUNT 0 /CUMM (0.0-0.2); ABSOLUTE EOSINOPHIL COUNT 0.2 /CUMM (0.0-0.7); ABSOLUTE GRANULOCYTE CT 8.6 /CUMM (1.4-6.5); ABSOLUTE LYMPH COUNT 0.5 /CUMM (1.2-3.4); ABSOLUTE MONOCYTE COUNT 1.1 /CUMM (0.10-0.60); BASOPHIL % 0.1 % (0.0-2.0); EOSINOPHIL % 1.6 % (0-5); GRANULOCYTE % 82.8 % (42.2-75.2); HEMATOCRIT 25.9 % (42-52); MEAN CORPUSCULAR HGB CONC 32.5 G/DL (33.0-37.0); MEAN CORPUSCULAR VOLUME 89.4 FL (80.0-94.0); MEAN PLATELET VOLUME 7.7 FL (7.4-10.4); PLATELET COUNT 147 /CUMM (130-400); RBC DISTRIBUTION WIDTH 21.7 % (11.5-14.5); RED BLOOD CELL CT 2.89 /CUMM (4.70-6.10); WHITE BLOOD CELL COUNT 10.4 /CUMM (4.8-10.8)
[2018-03-21 08:20] LABS: PTT 81 SEC (25-37)
--- NOTE | 2018-03-21 08:25 | PN- Podiatry ---
Subjective Subjective: Patient is seen and evaluated at bedside in no apparent distress, afebrile and vital signs stable. He remained slightly confused, and still reports pain in both lower extremities, right more so than left. Review of Systems: A 14 point review of systems was performed, and was found to be negative apart from the patient's complaints described above in the history of present illness. The patient remains slightly confused which has been stable since the time I have begun to see him. Objective Vital Signs and I&Os Vital Signs Date Time Temp Pulse Resp B/P B/P Pulse O2 O2 Flow FiO2 Mean Ox Delivery Rate 03/21 0733 98.4 61 20 132/64 99 Room Air 03/20 2311 98.0 67 20 124/50 100 Room Air 03/20 1611 65 110/70 03/20 1600 Room Air 03/20 1438 97.9 55 18 115/60 Intake & Output 03/21 1600 03/21 0800 03/21 0000 03/20 1600 03/20 0800 03/20 0000 Intake Total 158.4 59.4 2308.4 928 688 Output Total 375 200 450 650 Balance -216.6 59.4 2108.4 478 38 Intake, Blood 350 Product Intake, IV 158.4 59.4 158.4 208 88 Intake, Oral 1800 720 600 Number 0 1 0 Bowel Movements Output, Urine 375 200 450 650 Patient 181 lb 170 lb 169 lb Weight Weight Bed scale Bed scale Measurement Method Physical Exam: The patient continues to have nonpalpable pedal pulses. Temperature gradient is normal the left lower extremity, temp gradient is increased in the right lower extremity, but stable relative to my initial consultation. Patient's capillary refill time is delayed in the remaining fifth digit of the right foot. Patient is status post closed left transmetatarsal amputation, which is stable. The patient is status post amputation of the 1st through 4th rays performed the right with remaining fifth digit that is in an adductovarus contracture. The large bullous change on the dorsal midfoot hindfoot is relatively stable, does not exhibit any new serous drainage. There is reduced cyanosis compared to the last time I'd seen him 2 days ago. There is significant postinflammatory hyperpigmentation of both legs, right more so than the left. Current Medications: Current Medications Sig/Salome Start time Last Medication Dose Route Stop Time Status Admin Albuterol Sulfate See Dose Q4-6 PRN PRN 03/17 1945 AC Insts (1) INH Ascorbic Acid 500 MG DAILY 03/18 0900 AC 03/20 PO 0924 Aspirin Buffered 81 MG QAM 03/18 0900 AC 03/20 PO 0924 Budesonide/ 2 PUF BID 03/17 2100 AC 03/20 Formoterol Fumarate INH 2132 Clopidogrel Bisulfate 75 MG DAILY 03/20 0900 AC 03/20 PO 0924 Cyanocobalamin 1,000 MCG DAILY 03/18 0900 AC 03/20 PO 0924 Digoxin 0.125 MG 1700 03/18 1700 AC 03/20 PO 1611 Ezetimibe 10 MG DAILY 03/18 0900 AC 03/20 PO 0924 Ferrous Sulfate 325 MG TID 03/17 2100 AC 03/20 PO 2132 Heparin Sodium 25,000 UNIT Q24H 03/19 0930 AC 03/20 (Porcine) IV 1605 Sodium Chloride 500 ML Hydromorphone HCl 1 MG Q6 PRN 03/17 1945 AC 03/20 IV 1951 Insulin Aspart 0 TIDAC 03/18 0800 AC 03/20 SC 0924 Insulin Detemir 4 UNITS QPM 03/17 2100 AC 03/20 SC 03/21 1600 2133 Insulin Human Regular 0 Q6 03/22 0000 AC SC Levothyroxine Sodium 0.025 MG DAILY AC 03/18 0700 AC 03/21 PO 0606 Morphine Sulfate 2 MG Q6P PRN 03/17 1945 AC 03/18 IV 0759 Omeprazole 40 MG DAILY AC 03/19 0837 AC 03/21 PO 0606 Oxycodone/ 2 TAB Q6P PRN 03/17 1945 AC 03/21 Acetaminophen PO 0055 Sertraline HCl 50 MG DAILY 03/18 0900 AC 03/20 PO 0924 Dose Instructions: (1)Albuterol Sulfate: 1-2 PUF Results Last 48 Hours of Labs: Laboratory Tests 03/21 03/21 03/20 03/20 0655 0343 1953 1413 Chemistry Sodium Pending Potassium Pending Chloride Pending Carbon Dioxide Pending Anion Gap Pending BUN Pending Creatinine Pending BUN/Creatinine Ratio Pending Coagulation APTT (25 - 37 SEC) Pending 71 H 65 H Hematology CBC w Diff Pending NO MAN DIFF REQ WBC (4.8 - 10.8 /CUMM) Pending 11.6 H RBC (4.70 - 6.10 /CUMM) Pending 2.98 L Hgb (14.0 - 18.0 G/DL) Pending 8.6 L Hct (42 - 52 %) Pending 27.0 L MCV (80.0 - 94.0 FL) Pending 90.7 MCH (27.0 - 31.0 PG) Pending 28.9 MCHC (33.0 - 37.0 G/DL) Pending 31.9 L RDW (11.5 - 14.5 %) Pending 22.3 H Plt Count (130 - 400 /CUMM) Pending 159 MPV (7.4 - 10.4 FL) Pending 7.5 Gran % (42.2 - 75.2 %) 84.6 H Lymphocytes % (20.5 - 51.1 %) 4.2 L Monocytes % (1.7 - 9.3 %) 9.6 H Eosinophils % (0 - 5 %) 1.5 Basophils % (0.0 - 2.0 %) 0.1 Absolute Granulocytes (1.4 - 6.5 /CUMM) 9.8 H Absolute Lymphocytes (1.2 - 3.4 /CUMM) 0.5 L Absolute Monocytes (0.10 - 0.60 /CUMM) 1.1 H Absolute Eosinophils (0.0 - 0.7 /CUMM) 0.2 Absolute Basophils (0.0 - 0.2 /CUMM) 0 16 03/20 06/15 1200 0617 2115 Chemistry Sodium (137 - 145 mmol/L) 146 H Potassium (3.5 - 5.1 mmol/L) 4.5 Chloride (98 - 107 mmol/L) 112 H Carbon Dioxide (22 - 30 mmol/L) 22 Anion Gap (5 - 16) 12 BUN (9 - 20 mg/dL) 89 H Creatinine (0.7 - 1.2 mg/dL) 2.0 H Estimated GFR (>60 ml/min) 33 L BUN/Creatinine Ratio (7 - 25 %) 44.5 H Total Bilirubin (0.2 - 1.3 mg/dL) 0.7 Direct Bilirubin (< 0.4 mg/dL) 0.6 H AST (17 - 59 U/L) 58 ALT (21 - 72 U/L) 176 H Alkaline Phosphatase (< 127 U/L) 95 Total Protein (6.3 - 8.2 g/dL) 6.8 Albumin (3.5 - 5.0 g/dL) 2.7 L Coagulation APTT (25 - 37 SEC) 119 *H Hematology CBC w Diff Cancelled NO MAN DIFF REQ WBC (4.8 - 10.8 /CUMM) Cancelled 11.8 H RBC (4.70 - 6.10 /CUMM) Cancelled 2.58 L Hgb (14.0 - 18.0 G/DL) Cancelled 7.6 L Hct (42 - 52 %) Cancelled 23.3 L MCV (80.0 - 94.0 FL) Cancelled 90.2 MCH (27.0 - 31.0 PG) Cancelled 29.3 MCHC (33.0 - 37.0 G/DL) Cancelled 32.5 L RDW (11.5 - 14.5 %) Cancelled 23.8 H Plt Count (130 - 400 /CUMM) Cancelled 151 MPV (7.4 - 10.4 FL) Cancelled 8.2 Gran % (42.2 - 75.2 %) 81.5 H Lymphocytes % (20.5 - 51.1 %) 5.3 L Monocytes % (1.7 - 9.3 %) 11.6 H Eosinophils % (0 - 5 %) 1.6 Basophils % (0.0 - 2.0 %) 0 Absolute Granulocytes (1.4 - 6.5 /CUMM) 9.6 H Absolute Lymphocytes (1.2 - 3.4 /CUMM) 0.6 L Absolute Monocytes (0.10 - 0.60 /CUMM) 1.4 H Absolute Eosinophils (0.0 - 0.7 /CUMM) 0.2 Absolute Basophils (0.0 - 0.2 /CUMM) 0 Urines Ur Random Creatinine (mg/dL) 85.0 Ur Random Sodium (30 - 90 mmol/L) 15 L Ur Random Potassium (mmol/L) 34.2 Fraction Sodium Excret (<1% %) 0.3 03/19 03/19 1804 1228 Coagulation APTT (25 - 37 SEC) 76 H 35 Assessment/Plan Assessment/Plan 67-year-old male with critical limb ischemia of the right lower extremity with tissue loss superficially on the dorsal midfoot and hindfoot without clinical or radiographic evidence of infection. Patient is seen and evaluated at bedside Continue daily dry dressing changes with Adaptic. The patient refuses to have the lesions dried out with Betadine. The patient is scheduled for vascular intervention tomorrow, we'll follow-up on the results. Pending the revascularization findings tomorrow, the significant poikilothermia, significant cyanosis, and new onset tissue loss seen during my consultation places the patient at high risk for any major amputation. In his current state, he is not a candidate for podiatric surgical intervention, we will continue conservative wound care for now. I will follow up on him again Thursday. Problem List: 1. Peripheral vascular disease Core Measures Venous Thromboembolism VTE Risk Factors Age>40 No Mechanical VTE Prophylaxis d/t N/A MechProphylax Ordered No VTE Pharm Prophylaxis d/t NA PharmProphylax ordered
--- NOTE | 2018-03-21 09:32 | ECHOCARDIOGRAM REPORT ---
WILVERVONNIE LAMBERT Age: 67 : 1950 Gender: M Exam Date: 03/20/2018 11:14 Exam Location: [address] [place] [address] Ht (in): 70 Wt (lb): 170 BSA: 1.96 BP: 106 / 52 Ordering Physician: Ton Welch MD Referring Physician: Ton Welch MD Technologist: Leti Dash [facility] Room Number: [id number] Indications: Rhythm: Sinus Technical Quality: good FINDINGS Left Ventricle Normal left ventricular size, wall thickness and systolic function with mid to distal anterior, anteroseptal and apical hypokinesis. Normal left ventricular diastolic filling pattern for age. The ejection fraction is visually estimated at 20-30%. Right Ventricle The right ventricle is normal in size and function. Right Atrium The right atrium is normal in size. Left Atrium The left atrium is moderately enlarged. The interatrial septum is intact. Mitral Valve The mitral valve demonstrates posterior annular calcification with normal function. There is moderate mitral regurgitation. Aortic Valve Structurally normal aortic valve without significant sclerosis or stenosis. There is no aortic regurgitation. Tricuspid Valve The tricuspid valve is normal in structure and function. There is moderate tricuspid regurgitation. Pulmonary artery systolic pressure is normal. Pulmonic Valve Structurally normal pulmonic valve. There is no pulmonic regurgitation. Pericardium Normal pericardium without effusion. No pleural effusion. Great Vessels Normal aortic root dimension. The aortic arch and great vessels are well seen and are normal. CONCLUSIONS 1. Moderate to severely decreased EF of 20-30% with regional wall motion abnormalities as described above. 2. Moderate left atrial enlargement. 3. Moderate mitral regurgitation. 4. Moderate tricuspid regurgitation. Roland English M.D. (Electronically Signed) Final Date: 21 March 2018 09:32 MEASUREMENTS (Male / Female) Normal Values 2D ECHO LV Diastolic Diameter PLAX 5.0 cm 4.2 - 5.9 / 3.9 - 5.3 cm IVS Diastolic Thickness 1.0 cm LVPW Diastolic Thickness 0.9 cm LV Relative Wall Thickness 0.4 LVOT Diameter 2.0 cm Aortic Root Diameter 2.0 cm LA Systolic Diameter LX 5.0 cm 3.0 - 4.0 / 2.7 - 3.8 cm LV Ejection Fraction MOD BP 12.8 % >= 55 % LV Diastolic Length 4C 8.9 cm 6.9 - 10.3 cm LV Diastolic Area 4C 41.2 cm LV Diastolic Volume MOD 4C 157.0 cm LV Ejection Fraction MOD 4C 22.3 % LV Stroke Volume MOD 4C 35.0 cm LV Systolic Length 4C 8.5 cm LV Systolic Area 4C 36.1 cm LV Systolic Volume MOD 4C 122.0 cm LV Ejection Fraction MOD 2C 3.3 % LV Diastolic Volume 4C AL 161.8 cm 85 - 139 / 69 - 109 cm LV Systolic Volume 4C AL 129.9 cm LV Ejection Fraction 4C AL 19.7 % LV Stroke Volume 4C AL 31.9 cm LV Ejection Fraction 2C AL 4.6 % LA Volume 101.0 cm 18 - 58 / 22 - 52 cm DOPPLER AV Peak Velocity 301.0 cm/s AV Peak Gradient 36.2 mmHg AV Mean Velocity 179.0 cm/s AV Mean Gradient 16.0 mmHg AV Velocity Time Integral 66.0 cm LVOT Peak Velocity 91.0 cm/s LVOT Peak Gradient 3.3 mmHg LVOT Mean Velocity 59.8 cm/s LVOT Mean Gradient 2.0 mmHg LVOT Velocity Time Integral 18.8 cm LVOT Stroke Volume 59.1 cm AV Area Cont Eq vti 0.9 cm AV Area Cont Eq pk 0.9 cm Mitral E Point Velocity 121.0 cm/s Mitral A Point Velocity 97.2 cm/s Mitral E to A Ratio 1.2 MV Deceleration Time 412.0 ms TV Peak Velocity 204.3 cm/s PV Peak Velocity 82.8 cm/s PV Peak Gradient 2.7 mmHg LV E' Lateral Velocity 7.6 cm/s Mitral E to LV E' Lateral Ratio 15.9 LV E' Septal Velocity 4.2 cm/s Mitral E to LV E' Septal Ratio 28.9
--- NOTE | 2018-03-21 10:09 | PN- Housestaff ---
See Addendum Subjective Follow-up For: Peripheral vascular disease right leg pain Subjective: Patient was seen and examined today. Patient resting comfortably in bed. Wakes up but doses off. Reports leg pain. Denies other complaints. Family at bedside and would like to speak to vascular about the procedure. Review of Systems Constitutional: Reports: see HPI. Objective Last 24 Hrs of Vital Signs/I&O Vital Signs Date Time Temp Pulse Resp B/P B/P Pulse O2 O2 Flow FiO2 Mean Ox Delivery Rate 03/21 0733 98.4 61 20 132/64 99 Room Air 03/20 2311 98.0 67 20 124/50 100 Room Air 03/20 1611 65 110/70 03/20 1600 Room Air 03/20 1438 97.9 55 18 115/60 Intake & Output 03/21 1600 03/21 0800 03/21 0000 Intake Total 158.4 59.4 Output Total 375 200 Balance -216.6 -140.6 Intake, IV 158.4 59.4 Output, Urine 375 200 Patient 181 lb 170 lb Weight Weight Bed scale Measurement Method Physical Exam General Appearance: Alert, Cooperative, No Acute Distress Skin Temp/Moisture Exam: Warm/Dry HEENT: Atraumatic, Mucous Membr. moist/pink Cardiovascular: Regular Rate, Normal S1, Normal S2 Lungs: Clear to Auscultation, Normal Air Movement Neurological: Normal Speech, Cranial Nerves 3-12 NL Extremities: Right foot s/p first four toe amputations, skin is cool to touch, bluish discoloration, nonpalpable pulses in the feet, Left foot s/p TMA Current Medications: Current Medications Sig/Salome Start time Last Medication Dose Route Stop Time Status Admin Albuterol Sulfate See Dose Q4-6 PRN PRN 03/17 194 AC Insts (1) INH Ascorbic Acid 500 MG DAILY 03/18 900 AC 03/21 PO 0911 Aspirin Buffered 81 MG QAM 03/18 900 AC 03/21 PO 09 Budesonide/ 2 PUF BID 03/17 2100 AC 03/21 Formoterol Fumarate INH 0910 Clopidogrel Bisulfate 75 MG DAILY 03/20 09 AC 03/21 PO 0911 Cyanocobalamin 1,000 MCG DAILY 03/18 09 AC 03/21 PO 0911 Digoxin 0.125 MG 1700 03/18 1700 AC 03/20 PO 1611 Ezetimibe 10 MG DAILY 03/18 0900 AC 03/21 PO 0911 Ferrous Sulfate 325 MG TID 03/17 2100 AC 03/21 PO 0911 Heparin Sodium 25,000 UNIT Q24H 03/19 0930 AC 03/20 (Porcine) IV 1605 Sodium Chloride 500 ML Hydromorphone HCl 1 MG Q6 PRN 03/17 194 AC 03/20 IV 1951 Insulin Aspart 0 TIDAC 03/18 0800 AC 03/20 SC 0924 Insulin Detemir 4 UNITS QPM 03/17 2100 AC 03/20 SC 03/21 1600 2133 Insulin Human Regular 0 Q6 03/22 0000 AC SC Levothyroxine Sodium 0.025 MG DAILY AC 03/18 0700 AC 03/21 PO 06 Morphine Sulfate 2 MG Q6P PRN 03/17 1945 AC 03/18 IV 0759 Omeprazole 40 MG DAILY AC 03/19 0837 AC 03/21 PO 0606 Oxycodone/ 2 TAB Q6P PRN 03/17 1945 AC 03/21 Acetaminophen PO 0919 Sertraline HCl 50 MG DAILY 03/18 09 AC 03/21 PO 0911 Dose Instructions: (1)Albuterol Sulfate: 1-2 PUF Last 24 Hrs of Lab/Sadi Results Last 24 Hrs of Labs/Mics: Laboratory Tests 03/21/18 0655: Anion Gap 11, Estimated GFR 40 L, BUN/Creatinine Ratio 47.6 H, APTT 81 H, CBC w Diff NO MAN DIFF REQ, RBC 2.89 L, MCV 89.4, MCH 29.0, MCHC 32.5 L, RDW 21.7 H, MPV 7.7, Gran % 82.8 H, Lymphocytes % 4.5 L, Monocytes % 11.0 H, Eosinophils % 1.6, Basophils % 0.1, Absolute Granulocytes 8.6 H, Absolute Lymphocytes 0.5 L, Absolute Monocytes 1.1 H, Absolute Eosinophils 0.2, Absolute Basophils 0 03/21/18 0343: APTT 71 H 03/20/181952: CBC w Diff NO MAN DIFF REQ, RBC 2.98 L, MCV 90.7, MCH 28.9, MCHC 31.9 L, RDW 22.3 H, MPV 7.5, Gran % 84.6 H, Lymphocytes % 4.2 L, Monocytes % 9.6 H, Eosinophils % 1.5, Basophils % 0.1, Absolute Granulocytes 9.8 H, Absolute Lymphocytes 0.5 L, Absolute Monocytes 1.1 H, Absolute Eosinophils 0.2, Absolute Basophils 0 03/20/18 1413: APTT 65 H 03/20/18 1200: CBC w Diff Cancelled, WBC Cancelled, RBC Cancelled, Hgb Cancelled, Hct Cancelled , MCV Cancelled, MCH Cancelled, MCHC Cancelled, RDW Cancelled, Plt Count Cancelled, MPV Cancelled Assessment/Plan Assessment: Mr. Almanzar is a 67-year-old male with PMH of aortic stenosis, CAD s/p CABG (2016), CHF (last Echo 12/30/2017) with LVEF of 40-45% and anterior wall akinsis, hypertension, hyperlipidemia, NSTEMI, PVD, urinary incontinence, CKD, and chronic osteomyelities w/ toes amputation who presented to the ED with complains of progressive worsening right lower leg pain. 1. Severe stenosis in the proximal superficial femoral artery- continues to have pain, currently controlled with dilaudid, morphine and percocet. NPO tonight for endarterectomy tomorrow AM 2. GRECIA on CKD - improving, Cr today 1.7 3. Transaminitis- resolving 4. Anemia - H/H today 8.4/25.9, status post transfusion, seen by cardiology, H/H goal of 10/30 prior to surgery tomorrow 5. History of PVD 6. History of Hypertension, Hyperlipidemia 7. ECHO: LVEF of 20 to 30%, moderate LA enlargement, moderate MR and TR Plan: * He has had colonoscopy/EGD/PillCam in the past with no conclusive results. * He is stable from a GI standpoint to be started on IV Heparin. * If signs of overt GI bleeding, GI to be notified. * Continue IV Heparin drip. * We will transfuse him 1 unit of PRBC today * His Doppler U/S shows probable occluded profunda femoral artery and severe stenosis in the proximal superficial femoral artery. * He will require right common femoral endarterectomy which is scheduled for Thursday. * He is however, stable from a cardiac standpoint for his elective vascular endarterectomy * Podiatry input appreciated. * He will be receiving a dye load for his angiogram on Joe. * His LFTs are trending down. Unclear about the elevation. * Pain control with Percocet (mild) , IV morphine (moderate) and dilaudidd ( severe). * Continue all home meds: aspirin, plavix, sertraline, levothyroxine, albuterol, symbicort. Hold oral hypoglycemics and Lasix. * Nephro recommendations appreciated * Renal ultrasound showed unchanged cysts in bilateral kidneys * Complement pending * Urine lytes * Insulin SS with Accucheks * Levemir 4units QPM * Diet: Heart Healthy * DVT Prophylaxis: IV Heparin * Code: Full Code Problem List: 1. Peripheral vascular disease 2. Renal insufficiency 3. Anemia Pain Ratin Pain Location: leg Pain Goal: Pain 7 or less Pain Plan: morphine dilaudid percocet Tomorrow's Labs & Rationales: cbc - anemia bep - renal failure lfts
[2018-03-21 14:35] VITALS: BP 120/60
[2018-03-21 17:36] LABS: PTT 88 SEC (25-37)
[2018-03-21 22:30] VITALS: BP 120/60
[2018-03-22 04:50] LABS: PTT 70 SEC (25-37)
[2018-03-22 06:00] VITALS: BP 132/52
--- NOTE | 2018-03-22 07:16 | PN- Housestaff ---
See Addendum Subjective Follow-up For: peripheral vascular disease right leg pain Subjective: patient seen and examined. States he feels fine. Has no complaints. Review of Systems Constitutional: Reports: no symptoms. Objective Last 24 Hrs of Vital Signs/I&O Vital Signs Date Time Temp Pulse Resp B/P B/P Pulse O2 O2 Flow FiO2 Mean Ox Delivery Rate 03/22 1308 Room Air Room Air 03/22 0955 98.7 18 18 128/58 95 Room Air Room Air 03/22 0800 94 Room Air Room Air 03/22 0600 98.5 60 20 132/52 95 03/21 2230 98.1 67 20 120/60 98 Room Air 03/21 1725 57 03/21 1600 Room Air 03/21 1435 98.1 60 20 120/60 98 Room Air Intake & Output 03/22 1600 03/22 0800 03/22 0000 Intake Total 30 0 100 Output Total 600 600 300 Balance -570 -600 -200 Intake, Oral 30 0 100 Output, Urine 600 600 300 Patient 170 lb Weight Weight Bed scale Measurement Method Physical Exam General Appearance: Oriented X3, Cooperative, Mild Distress, awake Skin: No Rashes, No Breakdown Skin Temp/Moisture Exam: Cool/Dry (right foot) Sepsis Skin Exam (color): Normal for Ethnicity HEENT: Atraumatic Cardiovascular: Normal S1, Normal S2, THOMAS Lungs: Normal Air Movement Abdomen: Soft, No Tenderness Neurological: Normal Speech Extremities: left foot s/p amputation of toes right foot s/p amuputation of toes except for 5th digit. absent dorsalis pedis pulse. bluish discoloration Last 24 Hrs of Lab/Sadi Results Last 24 Hrs of Labs/Mics: Laboratory Tests 03/22/18 0705: Anion Gap 11, Estimated GFR 47 L, BUN/Creatinine Ratio 48.7 H, Total Bilirubin 1.1, Direct Bilirubin 0.6 H, AST 32, ALT 118 H, Alkaline Phosphatase 81, Total Protein 6.7, Albumin 2.6 L, CBC w Diff MAN DIFF ORDERED, RBC 3.12 L, MCV 88.8, MCH 29.4, MCHC 33.2, RDW 20.3 H, MPV 8.0, Gran % 84.7 H, Lymphocytes % 4.1 L, Monocytes % 10.6 H, Eosinophils % 0.6, Basophils % 0, Absolute Granulocytes 10.2 H, Absolute Lymphocytes 0.5 L, Absolute Monocytes 1.3 H, Absolute Eosinophils 0.1, Absolute Basophils 0, Platelet Estimate VERIFIED BY SMEAR, Polychromasia 1+, Anisocytosis 1+ 03/22/18 0420: APTT 70 H 03/21/18 1632: APTT 88 H Assessment/Plan Assessment: Mr. Almanzar is a 67-year-old male with PMH of aortic stenosis, CAD s/p CABG (2016), CHF (last Echo 12/30/2017) with LVEF of 40-45% and anterior wall akinsis, hypertension, hyperlipidemia, NSTEMI, PVD, urinary incontinence, CKD, and chronic osteomyelities w/ toes amputation who presented to the ED with complains of progressive worsening right lower leg pain. Assessment: 1. Severe stenosis in the proximal superficial femoral artery. 2. GRECIA on CKD 3. Transaminitis 4. Anemia 5. History of PVD 6. History of Hypertension, Hyperlipidemia Plan: * Patient in OR today for endarterectomy. * Heparin drip can likely be discontinued after the procedure.. * His Doppler U/S shows probable occluded profunda femoral artery and severe stenosis in the proximal superficial femoral artery. * s/p 3 unit pRBC. Goal was to keep Hb >10 for his procedure today. * Echocardiogram: LVEF of 20 to 30%, moderate LA enlargement, moderate MR and TR * Podiatry input appreciated. * He likely has GRECIA on CKD. His Cr is improved today to 1.5. His Cr elevations was likely due to contrast due to his angiogram last week. * Renal ultrasound showed unchanged cysts in bilateral kidneys * Complement levels - pending. * His LFTs are improved. No need to further monitor. * Pain control with Percocet (mild) , IV morphine (moderate) and dilaudidd ( severe). * Continue all home meds: aspirin, plavix, sertraline, levothyroxine, albuterol, symbicort. Hold oral hypoglycemics and Lasix. * Insulin SS with Accucheks * Levemir 4units QPM * Diet: Heart Healthy * DVT Prophylaxis: Heparin * Code: Full Code Problem List: 1. Peripheral vascular disease Pain Ratin Pain Location: none Pain Goal: Remain pain free Pain Plan: none Tomorrow's Labs & Rationales: CBC, BEP Pain Goal: Remain pain free Pain Plan: none Tomorrow's Labs & Rationales: BYRON DUFFY
[2018-03-22 08:30] LABS: ABSOLUTE BASOPHIL COUNT 0 /CUMM (0.0-0.2); ABSOLUTE EOSINOPHIL COUNT 0.1 /CUMM (0.0-0.7); ABSOLUTE GRANULOCYTE CT 10.2 /CUMM (1.4-6.5); ABSOLUTE LYMPH COUNT 0.5 /CUMM (1.2-3.4); ABSOLUTE MONOCYTE COUNT 1.3 /CUMM (0.10-0.60); BASOPHIL % 0 % (0.0-2.0); EOSINOPHIL % 0.6 % (0-5); GRANULOCYTE % 84.7 % (42.2-75.2); HEMATOCRIT 27.7 % (42-52); MEAN CORPUSCULAR HGB 29.4 PG (27.0-31.0); MEAN CORPUSCULAR HGB CONC 33.2 G/DL (33.0-37.0); MEAN CORPUSCULAR VOLUME 88.8 FL (80.0-94.0); PLATELET COUNT 144 /CUMM (130-400); RBC DISTRIBUTION WIDTH 20.3 % (11.5-14.5); RED BLOOD CELL CT 3.12 /CUMM (4.70-6.10)
[2018-03-22 09:55] VITALS: BP 128/58
--- NOTE | 2018-03-22 14:29 | RADIOLOGY REPORT ---
EXAMINATION: CR RIGHT FEMUR ENDARTERECTOMY AN ARTERIOGRAM IN OR/INTRAOPERATIVE FLUOROSCOPY CLINICAL INDICATION: Right femoral endarterectomy and arteriogram in OR. COMPARISON: None TECHNIQUE/FINDINGS: Fluoroscopic equipment was dedicated to the operating room for the performance of an intraoperative procedure. Several (4) cine fluoroscopy runs were acquired and are archived in PACS. Please refer to operative notes for procedural detail. FLUOROSCOPY TIME: 1 minute 40 seconds. IMPRESSION: Administrative dictation for intraoperative fluoroscopy and image archiving in PACS. Please refer to operative notes for details.
[2018-03-22 14:56] LABS: ABSOLUTE BASOPHIL COUNT 0 /CUMM (0.0-0.2); ABSOLUTE EOSINOPHIL COUNT 0.1 /CUMM (0.0-0.7); ABSOLUTE GRANULOCYTE CT 10.5 /CUMM (1.4-6.5); ABSOLUTE MONOCYTE COUNT 1.5 /CUMM (0.10-0.60); BASOPHIL % 0.1 % (0.0-2.0); GRANULOCYTE % 79.9 % (42.2-75.2); HEMATOCRIT 29.4 % (42-52); MEAN CORPUSCULAR HGB 29.6 PG (27.0-31.0); MEAN CORPUSCULAR VOLUME 89.8 FL (80.0-94.0); MEAN PLATELET VOLUME 7.5 FL (7.4-10.4); PLATELET COUNT 143 /CUMM (130-400); RED BLOOD CELL CT 3.28 /CUMM (4.70-6.10); WHITE BLOOD CELL COUNT 13.1 /CUMM (4.8-10.8)
--- NOTE | 2018-03-22 15:58 | PN- Vascular Surgery ---
See Addendum Teresa Jade 03/22/18 1554: Subjective Subjective: POC Objective Vital Signs and I&Os Vital Signs Date Time Temp Pulse Resp B/P B/P Pulse O2 O2 Flow FiO2 Mean Ox Delivery Rate 03/22 1308 Room Air Room Air 03/22 0955 98.7 18 18 128/58 95 Room Air Room Air 03/22 0800 94 Room Air Room Air 03/22 0600 98.5 60 20 132/52 95 03/21 2230 98.1 67 20 120/60 98 Room Air 03/21 1725 57 03/21 1600 Room Air Intake & Output 03/22 1600 03/22 0800 03/22 0000 03/21 1600 03/21 0800 03/21 0000 Intake Total 30 0 100 558 158.4 59.4 Output Total 600 600 300 350 375 200 Balance -570 -600 -200 208 -216.6 -140.6 Intake, IV 158 158.4 59.4 Intake, Oral 30 0 100 400 Number 0 Bowel Movements Output, Urine 600 600 300 350 375 200 Patient 170 lb 181 lb 170 lb Weight Weight Bed scale Bed scale Measurement Method Physical Exam: GEN- CARD- PULM- ABD- EXT- Assessment/Plan Assessment/Plan A- POD0 sp Right femoral endarerectomy, P- bedrest until 6am ada diet plavix, asa tight glucose control medical mgmt per primary team will dw attending Evelina Ha 03/22/18 1600: Subjective Subjective: very sleepy, snoring. vital signs stable. eye opening to name calling. just arrived to icu from pacu Objective Vital Signs and I&Os Vital Signs Date Time Temp Pulse Resp B/P B/P Pulse O2 O2 Flow FiO2 Mean Ox Delivery Rate 03/22 1308 Room Air Room Air 03/22 0955 98.7 18 18 128/58 95 Room Air Room Air 03/22 0800 94 Room Air Room Air 03/22 0600 98.5 60 20 132/52 95 03/21 2230 98.1 67 20 120/60 98 Room Air 03/21 1725 57 Intake & Output 03/22 1600 03/22 0800 03/22 0000 03/21 1600 03/21 0800 03/21 0000 Intake Total 30 0 100 558 158.4 59.4 Output Total 600 600 300 350 375 200 Balance -570 -600 -200 208 -216.6 -140.6 Intake, IV 158 158.4 59.4 Intake, Oral 30 0 100 400 Number 0 Bowel Movements Output, Urine 600 600 300 350 375 200 Patient 170 lb 181 lb 170 lb Weight Weight Bed scale Bed scale Measurement Method NOW: BP118/64 HR 60s Physical Exam: GEN- NAD CARD- s1s2 RRR PULM- +bs, coarse throughout ABD- soft nt EXT- R groin dressed w provena- cdi. bl lower ext brawny skin changes, left foot sp amp, r foot dressed. no palp pulses, +PT signals bl. Assessment/Plan Assessment/Plan Seems to be still awakening from general anesthesia- will closely monitor. IVF per medical team (CHF). bedrest until am. started note under wrong provider login in error
[2018-03-22 16:00] VITALS: BP 118/62
--- NOTE | 2018-03-22 16:03 | Operative Report ---
Operative/Inv Procedure Report Surgery Date: 03/22/18 Name of Procedure: right common femoral endarterectomy diagnostic angiogram Pre-Operative Diagnosis: right foot rest pain Post-Operative Diagnosis: same Estimated Blood Loss: scant (300) Surgeon/Warehouse Hand: Daniel BROWN, Colby staffing assistant-- Bryce long MD Anesthesia: general endotracheal tube Specimens: right common femoral endarterectomy plaque Complications: none Condition: stable, extubated, transferred to pacu Operative Indication: 67 y/o m w/ hx of smoking, CAD, chf with ef 25%, pad s/p left leg bypass, previous Right SFA stents. 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 During that time Dr. Long shot an angiogram of the right groin which showed a significant calcified plaque within the distal common femoral artery and profunda femoral artery. Subsequently the patient had debilitating rest pain of the right foot and began to develop bullae on the dorsum of the foot and ischemic changes . We therefore plan to perform a right common femoral endarterectomy in order to treat his rest pain and his critical limb ischemia. The patient and family were explained risks benefits alternatives of surgery including the patient has increased risk of medical complications given his multiple comorbidities. Informed consent was obtained and placed in the chart. Operative/Procedure Note Note: Patient was brought to the operating room a time-out was done to verify the patient's name date of and MRN. Was then placed under general anesthesia in supine position. The radial A-line and Pace were placed. We then proceeded to prep and drape bilateral groins in a sterile fashion. Dr. Long assisted me for the entirety of the procedure as there is no resident or pa available with adequate experience to assist me. We then proceeded to make a Vertical incision over the course of the common femoral artery using a 10 blade scalpel. Used the Bovie to divide the subcutaneous tissue. We tied off in a crossing veins or lymphatics. We identified the inguinal ligament and sharply dissected to its inferior border and identified the common femoral artery. The artery was circumferentially dissected and his was continued continued distally until we identified the SFA and profunda femoris artery. Dissected the SFA and profunda branches until we identified soft spots within the artery that could be clamped safely. We had to continue our dissection proximally onto the distal external iliac artery. As there was not a soft spot in the common femoral artery to clamp. However in doing this we avulsed a branch off the common femoral artery and we had to use the Bovie to divide the inferior portion of the nguinal ligament in order to get adequate exposure to repair the hole. This was repaired with 6-0 Prolene stitches after we gained control. At this time the patient was fully heparinized. We then began to clamp proximally and distally. We made an arteriotomy using an 11 blade and continue this with Marques scissors. The arteriotomy was continued down onto the SFA. We then used the [place] elevator to perform an endarterectomy and performed an inversion endarterectomy of the profunda femoris artery. There was some stent within the proximal SFA which we removed and there is a very calcified plaque nearly occluding the origin of the artery. This was completely freed up and removed. Once we had performed an adequate endarterectomy we confirmed there was not significant debris but using heparinized saline flush the intima of the artery. At this time there was very good pulse within the common femoral, SFA, and profunda femoris artery. We decided to shoot an angiogram to determine the outflow. We therefore placed a micropuncture needle into the patch and advanced a sheath over the wire. We shot an angiogram of the right leg which showed good flow through the patch but an occlusion of the distal popliteal artery with reconstitution of the pt at the ankle. At this time we were satsified with our result and had identified a target vessel for bypass if the patients foot wound does not heal. AT this time we obtained hemostasis with gel foam, flowseal, and some additional stiches. We removed the micropuncture sheath and closed the hole with a 6.0 prolene stich. Once we were satsified that we had good hemostasis we then closed the inguinal ligament with 2 x 2.0 prolene figure 8 stiches. WE closed the deep layers with 2.0 vicryl and then closed the subcutaenous and deep dermal layer with 3.0 vircyl. The skin was closed with kaitlynn. The patient was then extubated and transferred to the pacu in stable condition. All counts were accurate at the end of the case. Findings: Calcified plaque within the distal common femoral artery extending into the profunda and SFA. Completion angiogram showed good flow through the common femoral artery and profunda SFA. There was a multifocal stenosis within his SFA stents. The distal popliteal artery was occluded with reconstitution of a distal PT artery and DP artery
--- NOTE | 2018-03-22 17:21 | PN- Podiatry ---
Subjective Subjective: Patient is seen and evaluated in the intensive care unit postoperative day 0 right femoral endarterectomy by Dr. Sanchez and Dr. Gage. He remains somewhat sedated from the procedure, but appears to be in no apparent distress, he is afebrile, his vital signs are stable. Review of Systems: Not applicable secondary to being sedated from the anesthesia Objective Vital Signs and I&Os Vital Signs Date Time Temp Pulse Resp B/P B/P Pulse O2 O2 Flow FiO2 Mean Ox Delivery Rate 03/22 1308 Room Air Room Air 03/22 0955 98.7 18 18 128/58 95 Room Air Room Air 03/22 0800 94 Room Air Room Air 03/22 0600 98.5 60 20 132/52 95 03/21 2230 98.1 67 20 120/60 98 Room Air 03/21 1725 57 Intake & Output 03/22 1600 03/22 0800 03/22 0000 03/21 1600 03/21 0800 03/21 0000 Intake Total 30 0 100 558 158.4 59.4 Output Total 600 600 300 350 375 200 Balance -570 -600 -200 208 -216.6 -140.6 Intake, IV 158 158.4 59.4 Intake, Oral 30 0 100 400 Number 0 Bowel Movements Output, Urine 600 600 300 350 375 200 Patient 170 lb 181 lb 170 lb Weight Weight Bed scale Bed scale Measurement Method Physical Exam: The patient now has significant warmth in the right lower extremity consistent with reperfusion, left lower extremity temperature gradient is unchanged. His remaining fifth digit now has a capillary refill time is 3-1/2 seconds. The bullous changes on the dorsum of the hindfoot and midfoot are unchanged in size, and remain limited to the level of the dermis. Musculoskeletal exam is unchanged. Peripheral neuro exam is unchanged. Current Medications: Current Medications Sig/Salome Start time Last Medication Dose Route Stop Time Status Admin Albuterol Sulfate See Dose Q4-6 PRN PRN 03/17 1945 AC Insts (1) INH Ascorbic Acid 500 MG DAILY 03/18 900 AC 03/22 PO 812 Aspirin Buffered 81 MG QAM 03/18 900 AC 03/22 PO 0814 Budesonide/ 2 PUF BID 03/17 2100 AC 03/22 Formoterol Fumarate INH 0814 Clopidogrel Bisulfate 75 MG DAILY 03/20 900 AC 03/22 PO 0815 Cyanocobalamin 1,000 MCG DAILY 03/18 0900 AC 03/22 PO 0813 Digoxin 0.125 MG 1700 03/18 1700 AC 03/20 PO 1611 Ezetimibe 10 MG DAILY 03/18 0900 AC 03/22 PO 0813 Ferrous Sulfate 325 MG TID 03/17 2100 AC 03/22 PO 0813 Heparin Sodium 5,000 UNIT Q8 03/22 2200 AC (Porcine) SC Heparin Sodium 25,000 UNIT Q24H 03/19 0930 DC 03/21 (Porcine) IV 1312 Sodium Chloride 500 ML Hydromorphone HCl 1 MG Q6 PRN 03/17 194 AC 03/20 IV 1951 Insulin Aspart 0 TIDAC 03/22 1700 AC SC Insulin Aspart 0 TIDAC 03/18 0800 DC 03/20 SC 0924 Insulin Detemir 4 UNITS QPM 03/22 2100 AC SC Insulin Human Regular 0 Q6 03/22 0000 DC 03/22 SC 0543 Insulin Human Regular 2 UNITS .STK-MED ONE 03/21 2338 DC IV 03/21 2339 Levothyroxine Sodium 0.025 MG DAILY AC 03/18 0700 AC 03/22 PO 0543 Morphine Sulfate 2 MG Q6P PRN 03/17 194 03/18 IV 0759 Omeprazole 40 MG DAILY AC 03/19 0837 03/22 PO 0543 Oxycodone/ 2 TAB Q6P PRN 03/17 1945 03/22 Acetaminophen PO 0415 Patient Medication 1 ED ONE ONE 03/22 1315 VT 03/22 Teaching ED 03/22 1316 1707 Sertraline HCl 50 MG DAILY 03/18 0900 03/22 PO 0813 Dose Instructions: (1)Albuterol Sulfate: 1-2 PUF Results Last 48 Hours of Labs: Laboratory Tests 03/22 03/22 1445 0705 Chemistry Sodium (137 - 145 mmol/L) 145 Potassium (3.5 - 5.1 mmol/L) 4.5 Chloride (98 - 107 mmol/L) 115 H Carbon Dioxide (22 - 30 mmol/L) 19 L Anion Gap (5 - 16) 11 BUN (9 - 20 mg/dL) 73 H Creatinine (0.7 - 1.2 mg/dL) 1.5 H Estimated GFR (>60 ml/min) 47 L BUN/Creatinine Ratio (7 - 25 %) 48.7 H Total Bilirubin (0.2 - 1.3 mg/dL) 1.1 Direct Bilirubin (< 0.4 mg/dL) 0.6 H AST (17 - 59 U/L) 32 ALT (21 - 72 U/L) 118 H Alkaline Phosphatase (< 127 U/L) 81 Total Protein (6.3 - 8.2 g/dL) 6.7 Albumin (3.5 - 5.0 g/dL) 2.6 L Hematology CBC w Diff NO MAN DIFF REQ MAN DIFF ORDERED WBC (4.8 - 10.8 /CUMM) 13.1 H 12.0 H RBC (4.70 - 6.10 /CUMM) 3.28 L 3.12 L Hgb (14.0 - 18.0 G/DL) 9.7 L 9.2 L Hct (42 - 52 %) 29.4 L 27.7 L MCV (80.0 - 94.0 FL) 89.8 88.8 MCH (27.0 - 31.0 PG) 29.6 29.4 MCHC (33.0 - 37.0 G/DL) 33.0 33.2 RDW (11.5 - 14.5 %) 20.0 H 20.3 H Plt Count (130 - 400 /CUMM) 143 144 MPV (7.4 - 10.4 FL) 7.5 8.0 Gran % (42.2 - 75.2 %) 79.9 H 84.7 H Lymphocytes % (20.5 - 51.1 %) 7.7 L 4.1 L Monocytes % (1.7 - 9.3 %) 11.3 H 10.6 H Eosinophils % (0 - 5 %) 1.0 0.6 Basophils % (0.0 - 2.0 %) 0.1 0 Absolute Granulocytes (1.4 - 6.5 /CUMM) 10.5 H 10.2 H Absolute Lymphocytes (1.2 - 3.4 /CUMM) 1.0 L 0.5 L Absolute Monocytes (0.10 - 0.60 /CUMM) 1.5 H 1.3 H Absolute Eosinophils (0.0 - 0.7 /CUMM) 0.1 0.1 Absolute Basophils (0.0 - 0.2 /CUMM) 0 0 Platelet Estimate (ADEQUATE) VERIFIED BY SMEAR Polychromasia 1+ Anisocytosis 1+ 03/22 03/21 03/21 03/21 0420 1632 0655 0343 Chemistry Sodium (137 - 145 mmol/L) 146 H Potassium (3.5 - 5.1 mmol/L) 4.3 Chloride (98 - 107 mmol/L) 113 H Carbon Dioxide (22 - 30 mmol/L) 23 Anion Gap (5 - 16) 11 BUN (9 - 20 mg/dL) 81 H Creatinine (0.7 - 1.2 mg/dL) 1.7 H Estimated GFR (>60 ml/min) 40 L BUN/Creatinine Ratio (7 - 25 %) 47.6 H Coagulation APTT (25 - 37 SEC) 70 H 88 H 81 H 71 H Hematology CBC w Diff NO MAN DIFF REQ WBC (4.8 - 10.8 /CUMM) 10.4 RBC (4.70 - 6.10 /CUMM) 2.89 L Hgb (14.0 - 18.0 G/DL) 8.4 L Hct (42 - 52 %) 25.9 L MCV (80.0 - 94.0 FL) 89.4 MCH (27.0 - 31.0 PG) 29.0 MCHC (33.0 - 37.0 G/DL) 32.5 L RDW (11.5 - 14.5 %) 21.7 H Plt Count (130 - 400 /CUMM) 147 MPV (7.4 - 10.4 FL) 7.7 Gran % (42.2 - 75.2 %) 82.8 H Lymphocytes % (20.5 - 51.1 %) 4.5 L Monocytes % (1.7 - 9.3 %) 11.0 H Eosinophils % (0 - 5 %) 1.6 Basophils % (0.0 - 2.0 %) 0.1 Absolute Granulocytes (1.4 - 6.5 /CUMM) 8.6 H Absolute Lymphocytes (1.2 - 3.4 /CUMM) 0.5 L Absolute Monocytes (0.10 - 0.60 /CUMM) 1.1 H Absolute Eosinophils (0.0 - 0.7 /CUMM) 0.2 Absolute Basophils (0.0 - 0.2 /CUMM) 0 03/20 1953 Hematology CBC w Diff NO MAN DIFF REQ WBC (4.8 - 10.8 /CUMM) 11.6 H RBC (4.70 - 6.10 /CUMM) 2.98 L Hgb (14.0 - 18.0 G/DL) 8.6 L Hct (42 - 52 %) 27.0 L MCV (80.0 - 94.0 FL) 90.7 MCH (27.0 - 31.0 PG) 28.9 MCHC (33.0 - 37.0 G/DL) 31.9 L RDW (11.5 - 14.5 %) 22.3 H Plt Count (130 - 400 /CUMM) 159 MPV (7.4 - 10.4 FL) 7.5 Gran % (42.2 - 75.2 %) 84.6 H Lymphocytes % (20.5 - 51.1 %) 4.2 L Monocytes % (1.7 - 9.3 %) 9.6 H Eosinophils % (0 - 5 %) 1.5 Basophils % (0.0 - 2.0 %) 0.1 Absolute Granulocytes (1.4 - 6.5 /CUMM) 9.8 H Absolute Lymphocytes (1.2 - 3.4 /CUMM) 0.5 L Absolute Monocytes (0.10 - 0.60 /CUMM) 1.1 H Absolute Eosinophils (0.0 - 0.7 /CUMM) 0.2 Absolute Basophils (0.0 - 0.2 /CUMM) 0 Assessment/Plan Assessment/Plan 67-year-old male with type 2 diabetes, history of significant alcohol abuse, and severe peripheral arterial disease status post revascularization of the right lower extremity with superficial tissue loss on the dorsum of the right midfoot and hindfoot The patient was seen and evaluated A dry sterile dressing with Xeroform over the blister was applied In light of his revascularization, we will likely switch to Silvadene with petroleum dressing for the bullous changes beginning tomorrow. We will also gently removed some devitalized epidermis on the edges of the bullous changes. He has no restrictions in weightbearing from a podiatry standpoint. I will follow up on this patient daily to monitor for further tissue loss. He has no clinical or radiographic evidence of acute infection at this time. Problem List: 1. Peripheral vascular disease Core Measures Venous Thromboembolism VTE Risk Factors Age>40 No Mechanical VTE Prophylaxis d/t N/A MechProphylax Ordered No VTE Pharm Prophylaxis d/t NA PharmProphylax ordered Attending Review Statement Attending Statement Attending MD Statement: examined this patient
--- NOTE | 2018-03-22 17:26 | PN- Cardiology ---
Subjective Subjective: * Patient remains lethargic following surgery. * A low EF remains on his most recent echocardiogram * sinus rhythm with right BBB * creatinine improved to 1.5 Objective Vital Signs and I&Os Vital Signs Date Time Temp Pulse Resp B/P B/P Pulse O2 O2 Flow FiO2 Mean Ox Delivery Rate 03/22 1308 Room Air Room Air 03/22 0955 98.7 18 18 128/58 95 Room Air Room Air 03/22 0800 94 Room Air Room Air 03/22 0600 98.5 60 20 132/52 95 03/21 2230 98.1 67 20 120/60 98 Room Air 03/21 1725 57 Intake & Output 03/22 1600 03/22 0800 03/22 0000 03/21 1600 03/21 0800 03/21 0000 Intake Total 30 0 100 558 158.4 59.4 Output Total 600 600 300 350 375 200 Balance -570 -600 -200 208 -216.6 -140.6 Intake, IV 158 158.4 59.4 Intake, Oral 30 0 100 400 Number 0 Bowel Movements Output, Urine 600 600 300 350 375 200 Patient 170 lb 181 lb 170 lb Weight Weight Bed scale Bed scale Measurement Method Physical Exam: General: WD/WN male in NAD; lethargic HEENT: NC/AT, PERRL, EOMI Neck: no JVD, no carotid bruit Heart: RRR with 2/6 systolic murmur Lungs: clear bilaterally Abdomen: soft, NT, +ve bowel sounds Extremities: 1+ bilateral leg edema, venous stasis changes bilaterally, toe amputations bilaterally Assessment/Plan Assessment/Plan * This patient has had a NSTEMI within the past six weeks. He also has renal insufficiency and hepatic insufficiency. As such, his surgical risk was increased but he nevertheless appears to be doing well following a right common femoral endarterectomy. * This patient may have anemia due to renal insuffciency however a prior workup disclosed an increased reticulocyte count instead of a low retic count that goes along better with bleeding than decreased production. Guaiac all stools and follow his H/H. * This patient has evidence of hepatic insufficiency likely related to RV dysfunction that appears to be improving. Continue to hold Atorvastatin for now. * In consideration of this patient's consistently low EF we will pursue an electophysiology consult for ICD placement by Dr. Botello. Continue telemetry? Yes
--- NOTE | 2018-03-22 18:23 | Cons- Cardiology ---
General Information and HPI Consulting Request Date of Consult: 03/22/18 Requested By: Yaron BROWN,Damari English MD Reason for Consult: I was asked to see Mr. Almanzar who has a significant ischemic cardiomyopathy with a reduction in LV function for the possibility of a prophylactic defibrillator. Source of Information: old records Exam Limitations: no limitations History of Present Illness: To review his history this patient is a 67-year-old man who has a known extensive cardiovascular history. He has had a coronary artery bypass graft in August 2017. He has known aortic stenosis. He has had recurrent congestive heart failure. He also has RBBB, LAFB, first degree AV block. An echo done on 12/30/2017 showed an EF of 40-45% with anterior wall akinesis. Other issues include hypertension and hyperlipidemia and diabetes and a fairly recent non-ST elevation MD, peripheral vascular disease, chronic renal insufficiency with creatinine of over 2, chronic osteomyelitis with multiple toe amputations. He now presented on 03/18/2018 with a nonischemic right lower extremity. He was seen in cardiology consultation by Dr. English who noted that he was definitely at some risk given her recent non-ST elevation MD. An echocardiogram done on 03/20/2018 shows that his EF has further reduced to 20 -30% with severe wall motion abnormalities. He went for a revascularization procedure today and tolerated it well. He is currently lethargic. Again given his new reduction in his left ventricular function I was asked to see him regarding a primary prevention AICD. Allergies/Medications Allergies: Coded Allergies: No Known Allergies (11/13/17) Home Med List: Albuterol Sulfate (Ventolin Hfa) 90 MCG HFA.AER.AD 1-2 PUF INH AD PRN COPD ( Reported) Ascorbate Calcium (Vitamin C) 500 MG TABLET 500 MG PO QAM SUPPLEMENT ( Reported) Aspirin (Ecotrin*) 81 MG TABLET. 1 TAB PO QAM HEART/BLOOD (Reported) Atorvastatin Calcium 80 MG TABLET 1 TAB PO DAILY PVD (Reported) Budesonide/Formoterol Fumarate (Symbicort 160-4.5 Mcg Inhaler) 160 MCG-4.5 MCG/ ACTUATION HFA.AER.AD 2 PUF INH BID BREATHING PROBLEMS (Reported) Clopidogrel Bisulfate (Plavix) 75 MG TABLET 1 TAB PO DAILY BLOOD THINNER ( Reported) Cyanocobalamin (Vitamin B-12) 1,000 MCG TABLET 1 TAB PO DAILY SUPPLEMENT ( Reported) Digoxin (Lanoxin) 125 MCG TABLET 0.125 MG PO 1700 HFrEF . Ergocalciferol (Vitamin D2) (Vitamin D2) 50,000 UNIT CAPSULE 1 TAB PO QSUN SUPPLEMENT (Reported) Ezetimibe (Zetia) 10 MG TABLET 10 MG PO DAILY CHOLESTEROL (Reported) Ferrous Sulfate 325 MG (65 MG IRON) TABLET 1 TAB PO TID IRON, VITAMIN ( Reported) Fish Oil/Dha/Epa (Fish Oil 1,200 MG Fish Oil) 1,200 MG-144 MG-216 MG CAPSULE 1 CAP PO DAILY SUPPLEMENT (Reported) Furosemide (Lasix) 40 MG TABLET 1 TAB PO DAILY CHF Please take as prescribed and follow up with your doctor. Insulin Glargine,Hum.rec.anlog (Lantus Solostar) 100 UNIT/ML (3 ML) INSULN.PEN 4 UNIT SC QPM dm (Reported) Levothyroxine Sodium (Synthroid) 25 MCG TABLET 0.025 MG PO DAILY AC HYPOTHYROIDISM . Oxycodone HCl/Acetaminophen (Percocet 7.5-325 MG Tablet) 7.5 MG-325 MG TABLET 1 TAB PO BID PAIN (Reported) Sertraline HCl 50 MG TABLET 50 MG PO DAILY DEPRESSION (Reported) Sitagliptin Phosphate (Januvia) 100 MG TABLET 1 TAB PO DAILY DIABETES ( Reported) Current Medications: Current Medications Sig/Salome Start time Last Medication Dose Route Stop Time Status Admin Albuterol Sulfate See Dose Q4-6 PRN PRN 03/17 1945 AC Insts (1) INH Ascorbic Acid 500 MG DAILY 03/18 09 AC 03/22 PO 08 Aspirin Buffered 81 MG QAM 03/18 09 AC 03/22 PO 0814 Budesonide/ 2 PUF BID 03/17 2100 AC 03/22 Formoterol Fumarate INH 0814 Clopidogrel Bisulfate 75 MG DAILY 03/20 0900 AC 03/22 PO 0815 Cyanocobalamin 1,000 MCG DAILY 03/18 0900 AC 03/22 PO 0813 Digoxin 0.125 MG 1700 03/18 1700 AC 03/20 PO 1611 Ezetimibe 10 MG DAILY 03/18 0900 AC 03/22 PO 0813 Ferrous Sulfate 325 MG TID 03/17 2100 AC 03/22 PO 0813 Heparin Sodium 5,000 UNIT Q8 03/22 2200 AC (Porcine) SC Heparin Sodium 25,000 UNIT Q24H 03/19 0930 GA 03/21 (Porcine) IV 1312 Sodium Chloride 500 ML Hydromorphone HCl 1 MG Q6 PRN 03/17 194 AC 03/20 IV 1951 Insulin Aspart 0 TIDAC 03/22 1700 AC SC Insulin Aspart 0 TIDAC 03/18 0800 DC 03/20 SC 0924 Insulin Detemir 4 UNITS QPM 03/22 2100 AC SC Insulin Human Regular 0 Q6 03/22 0000 DC 03/22 SC 0543 Insulin Human Regular 2 UNITS .STK-MED ONE 03/21 2338 DC IV 03/21 2339 Levothyroxine Sodium 0.025 MG DAILY AC 03/18 0700 AC 03/22 PO 0543 Morphine Sulfate 2 MG Q6P PRN 03/17 1945 03/18 IV 0759 Omeprazole 40 MG DAILY 03/19 0837 AC 03/22 PO 0543 Oxycodone/ 2 TAB Q6P PRN 03/17 1945 03/22 Acetaminophen PO 0415 Patient Medication 1 ED ONE ONE 03/22 1315 GA 03/22 Teaching ED 03/22 1316 1707 Sertraline HCl 50 MG DAILY 03/18 0900 03/22 PO 0813 Dose Instructions: (1)Albuterol Sulfate: 1-2 PUF Review of Systems Review of Systems: Constitutional: Negative for decreased appetite, weakness, malaise/fatigue, weight gain, weight loss HENT: Negative for congestion, hearing loss, hoarse voice, nosebleeds, sore throat, tinnitus Eyes: Negative for blurred vision, double vision, photophobia, redness, visual disturbances Cardiovascular: Negative for chest pain, shortness of breath, dyspnea on exertion, irregular heartbeat/palpitations, swelling, near syncope, syncope, orthopnea, paroxysmal nocturnal dyspnea, claudication, cyanosis Respiratory: Negative for cough, hemoptysis, shortness of breath, snoring, sleep apnea/sleep disordered breathing, sputum production, wheezing Endocrine: Negative for cold intolerance, heat intolerance, missed menstrual periods Hematologic/Lymphatic: Negative for adenopathy, abnormal bleeding, easy bruisability Skin: Negative for flushing, itching, rashes, skin cancer/suspicious lesions Musculoskeletal: Negative for arthritis, back pain, joint swelling, muscle cramps, muscle weakness Gastrointestinal: Negative for abdominal pain, change in bowel habits, constipation, diarrhea, dysphagia, heartburn, hemorrhoids, melena, nausea, vomiting Genitourinary: Negative for urinary incontinence, dysuria, flank pain, frequency , hematuria, nocturia, urgency Neurological: Negative for excessive daytime sleepiness, dizziness, focal weakness, headaches, lightheadedness, numbness, paresthesias, seizures, tremors, vertigo Psychiatric/behavioral: Negative for depression, hallucinations, memory loss, substance abuse, suicidal ideas, thoughts of violence, insomnia, nervousness/ anxiety Allergic/Immunologic: Negative for environmental allergies ALL OTHER SYSTEMS REVIEWED AND ARE NEGATIVE Past History Travel History Traveled to [place] past 21 day No Medical History Blood Transfusion Hx: Yes Neurological: GAIT ABDNORMALITY WEAKNESS EENT: NONE Cardiovascular: aortic stenosis, CAD, CHF, hypertension, hyperlipidemia, NSTEMI, PVD Respiratory: NONE Gastrointestinal: appt for pill cam cancelled for today due to ED visit gi bleed Hepatic: NONE Renal: urinary incontinence, CKD Musculoskeletal: CHRONIC OSTEOMYLITIS LFT FOOT- TOES AMP X5 RGHT FOOT- TOES AMP X4 Psychiatric: depression Endocrine: diabetes Blood Disorders: anemia with occ tranfusions Cancer(s): NONE PATTERN CUTTER/Reproductive: NONE Other Medical Hx: aneursym in left groin Surgical History Surgical History: CABG, hernia repair-umbilical, right shoulddr sx aVR bypass of the left (fem/pop) leg? amputation of 9 toes PTCA ESWL by Dr. Ledesma toe amputations bilaterally aortic valve, LE stents Family History Relations & Conditions If Any: FATHER (CAD). , Age 40-50; Cause: CAD (coronary artery disease). MOTHER (Pancreatic cancer). BROTHER (HTN). Psychosocial History Who Do You Live With? spouse Services at Home: Nursing Primary Language: Iraqi Smoking Status: Former Smoker ETOH Use: denies use Illicit Drug Use: denies illicit drug use Functional Ability ADLs Independent: dressing, eating, toileting, bathing. Ambulation: independent IADLs Independent: shopping, housework, finances, food prep, telephone, transportation , medication admin. Exam & Diagnostic Data Vital Signs and I&O Vital Signs Date Time Temp Pulse Resp B/P B/P Pulse O2 O2 Flow FiO2 Mean Ox Delivery Rate 03/22 1600 98 Nasal 2.0L Cannula 03/22 1600 97.7 72 12 118/62 98 Nasal 2.0L Cannula 03/22 1308 Room Air Room Air 03/22 0955 98.7 18 18 128/58 95 Room Air Room Air 03/22 0800 94 Room Air Room Air 03/22 0600 98.5 60 20 132/52 95 03/21 2230 98.1 67 20 120/60 98 Room Air Intake & Output 03/22 1600 03/22 0800 03/22 0000 03/21 1600 03/21 0800 03/21 0000 Intake Total 30 0 100 558 158.4 59.4 Output Total 600 600 300 350 375 200 Balance -570 -600 -200 208 -216.6 -140.6 Intake, IV 158 158.4 59.4 Intake, Oral 30 0 100 400 Number 0 Bowel Movements Output, Urine 600 600 300 350 375 200 Patient 170 lb 181 lb 170 lb Weight Weight Bed scale Bed scale Measurement Method Physical Exam: General/Constitutional: Oriented to person, place, and time. In no distress. Well-developed, well-nourished. Vital signs: see above. Head: Normocephalic/atraumatic Eyes: No xanthelasma or scleral icterus. Conjunctivae normal. Mouth: Moist mucous membranes without pallor or cyanosis Neck: Supple. No jugular venous distention, carotid bruits, thyromegaly Thorax/lungs/pulmonary: No chest deformity. Effort normal without respiratory distress. Lungs clear without wheezes or rales. Heart/Cardiovascular: Normal S1, S2 without murmurs, S3, or S4 Abdomen/GI: No distention, tenderness or masses Extremities: No cyanosis, clubbing, or edema Neuro: Alert and oriented to person, place, time. Grossly non-focal. Skin: Warm and dry. No diaphoresis. No major rashes. No erythema. No pallor or cyanosis. Psychiatric: Normal mood and affect, behavior appears normal. Labs/Sadi Results: Laboratory Tests 03/22 03/22 1445 0705 Chemistry Sodium (137 - 145 mmol/L) 145 Potassium (3.5 - 5.1 mmol/L) 4.5 Chloride (98 - 107 mmol/L) 115 H Carbon Dioxide (22 - 30 mmol/L) 19 L Anion Gap (5 - 16) 11 BUN (9 - 20 mg/dL) 73 H Creatinine (0.7 - 1.2 mg/dL) 1.5 H Estimated GFR (>60 ml/min) 47 L BUN/Creatinine Ratio (7 - 25 %) 48.7 H Total Bilirubin (0.2 - 1.3 mg/dL) 1.1 Direct Bilirubin (< 0.4 mg/dL) 0.6 H AST (17 - 59 U/L) 32 ALT (21 - 72 U/L) 118 H Alkaline Phosphatase (< 127 U/L) 81 Total Protein (6.3 - 8.2 g/dL) 6.7 Albumin (3.5 - 5.0 g/dL) 2.6 L Hematology CBC w Diff NO MAN DIFF REQ MAN DIFF ORDERED WBC (4.8 - 10.8 /CUMM) 13.1 H 12.0 H RBC (4.70 - 6.10 /CUMM) 3.28 L 3.12 L Hgb (14.0 - 18.0 G/DL) 9.7 L 9.2 L Hct (42 - 52 %) 29.4 L 27.7 L MCV (80.0 - 94.0 FL) 89.8 88.8 MCH (27.0 - 31.0 PG) 29.6 29.4 MCHC (33.0 - 37.0 G/DL) 33.0 33.2 RDW (11.5 - 14.5 %) 20.0 H 20.3 H Plt Count (130 - 400 /CUMM) 143 144 MPV (7.4 - 10.4 FL) 7.5 8.0 Gran % (42.2 - 75.2 %) 79.9 H 84.7 H Lymphocytes % (20.5 - 51.1 %) 7.7 L 4.1 L Monocytes % (1.7 - 9.3 %) 11.3 H 10.6 H Eosinophils % (0 - 5 %) 1.0 0.6 Basophils % (0.0 - 2.0 %) 0.1 0 Absolute Granulocytes (1.4 - 6.5 /CUMM) 10.5 H 10.2 H Absolute Lymphocytes (1.2 - 3.4 /CUMM) 1.0 L 0.5 L Absolute Monocytes (0.10 - 0.60 /CUMM) 1.5 H 1.3 H Absolute Eosinophils (0.0 - 0.7 /CUMM) 0.1 0.1 Absolute Basophils (0.0 - 0.2 /CUMM) 0 0 Platelet Estimate (ADEQUATE) VERIFIED BY SMEAR Polychromasia 1+ Anisocytosis 1+ 03/22 03/21 03/21 03/21 0420 1632 0655 0343 Chemistry Sodium (137 - 145 mmol/L) 146 H Potassium (3.5 - 5.1 mmol/L) 4.3 Chloride (98 - 107 mmol/L) 113 H Carbon Dioxide (22 - 30 mmol/L) 23 Anion Gap (5 - 16) 11 BUN (9 - 20 mg/dL) 81 H Creatinine (0.7 - 1.2 mg/dL) 1.7 H Estimated GFR (>60 ml/min) 40 L BUN/Creatinine Ratio (7 - 25 %) 47.6 H Coagulation APTT (25 - 37 SEC) 70 H 88 H 81 H 71 H Hematology CBC w Diff NO MAN DIFF REQ WBC (4.8 - 10.8 /CUMM) 10.4 RBC (4.70 - 6.10 /CUMM) 2.89 L Hgb (14.0 - 18.0 G/DL) 8.4 L Hct (42 - 52 %) 25.9 L MCV (80.0 - 94.0 FL) 89.4 MCH (27.0 - 31.0 PG) 29.0 MCHC (33.0 - 37.0 G/DL) 32.5 L RDW (11.5 - 14.5 %) 21.7 H Plt Count (130 - 400 /CUMM) 147 MPV (7.4 - 10.4 FL) 7.7 Gran % (42.2 - 75.2 %) 82.8 H Lymphocytes % (20.5 - 51.1 %) 4.5 L Monocytes % (1.7 - 9.3 %) 11.0 H Eosinophils % (0 - 5 %) 1.6 Basophils % (0.0 - 2.0 %) 0.1 Absolute Granulocytes (1.4 - 6.5 /CUMM) 8.6 H Absolute Lymphocytes (1.2 - 3.4 /CUMM) 0.5 L Absolute Monocytes (0.10 - 0.60 /CUMM) 1.1 H Absolute Eosinophils (0.0 - 0.7 /CUMM) 0.2 Absolute Basophils (0.0 - 0.2 /CUMM) 0 03/20 1953 Hematology CBC w Diff NO MAN DIFF REQ WBC (4.8 - 10.8 /CUMM) 11.6 H RBC (4.70 - 6.10 /CUMM) 2.98 L Hgb (14.0 - 18.0 G/DL) 8.6 L Hct (42 - 52 %) 27.0 L MCV (80.0 - 94.0 FL) 90.7 MCH (27.0 - 31.0 PG) 28.9 MCHC (33.0 - 37.0 G/DL) 31.9 L RDW (11.5 - 14.5 %) 22.3 H Plt Count (130 - 400 /CUMM) 159 MPV (7.4 - 10.4 FL) 7.5 Gran % (42.2 - 75.2 %) 84.6 H Lymphocytes % (20.5 - 51.1 %) 4.2 L Monocytes % (1.7 - 9.3 %) 9.6 H Eosinophils % (0 - 5 %) 1.5 Basophils % (0.0 - 2.0 %) 0.1 Absolute Granulocytes (1.4 - 6.5 /CUMM) 9.8 H Absolute Lymphocytes (1.2 - 3.4 /CUMM) 0.5 L Absolute Monocytes (0.10 - 0.60 /CUMM) 1.1 H Absolute Eosinophils (0.0 - 0.7 /CUMM) 0.2 Absolute Basophils (0.0 - 0.2 /CUMM) 0 Diagnostic Data EKG Results Normal sinus rhythm with marked first-degree AV block, left atrial enlargement, possible old inferior wall MD versus left anterior fascicular block with right bundle branch block Assessment/Plan Assessment/Plan My assessment is this patient has a severe reduction in LV function likely on the basis of an ischemic cardiomyopathy. He is certainly at risk of sudden cardiac . He also has marked first-degree AV block and likely bifascicular block and at some point could require a pacemaker. He is currently lethargic and it is difficult to get a sense of how aggressive he wishes to be. He has chronic comorbidities including severe peripheral vascular disease. He may be limited by his LV function going forward. Thus the question is whether or not he should have a prophylactic device implanted. Given his marked first-degree AV block would also consider cardiac resynchronization device or His bundle pacing. At this point we need to make sure his other problems are more stable before seriously considering this implant. In addition he will be running some risk of infecting device given his long-standing diabetes and multiple other medical problems. We could recommend a subcutaneous AICD but this would not afford us pacing. Again I do think a reasonable alternative would be a defibrillator with His bundle pacing and physiologic AV delays. It is a difficult decision regarding whether it is appropriate to proceed given his other issues. In addition he is not on a beta zamzam and I do think this would be a very reasonable addition to his regimen despite his heart failure. Coreg 6.5 mg twice a day be very reasonable addition. Ill be also very reasonable to repeat another echo after receiving carvedilol as an outpatient to see if his EF might improve back to where it was just a few months ago in December. He may also be a candidate for low-dose Entresto despite his renal dysfunction and I will leave this for Dr. English to sort out. We will make a follow-up office appointment to discuss a defibrillator defibrillator implant going forward. Copies To: Ayan BROWN,Anam Moss; Tameka BROWN PHD,Roland Hennessy Consult Acknowledgment - Thank you for your consult request.
[2018-03-22 23:33] LABS: ABSOLUTE BASOPHIL COUNT 0 /CUMM (0.0-0.2); ABSOLUTE EOSINOPHIL COUNT 0 /CUMM (0.0-0.7); ABSOLUTE GRANULOCYTE CT 13.2 /CUMM (1.4-6.5); ABSOLUTE LYMPH COUNT 0.3 /CUMM (1.2-3.4); ABSOLUTE MONOCYTE COUNT 1.4 /CUMM (0.10-0.60); BASOPHIL % 0 % (0.0-2.0); EOSINOPHIL % 0.1 % (0-5); GRANULOCYTE % 88.8 % (42.2-75.2); HEMATOCRIT 28.8 % (42-52); MEAN CORPUSCULAR HGB 28.7 PG (27.0-31.0); MEAN CORPUSCULAR HGB CONC 31.6 G/DL (33.0-37.0); MEAN CORPUSCULAR VOLUME 90.9 FL (80.0-94.0); MEAN PLATELET VOLUME 7.3 FL (7.4-10.4); PLATELET COUNT 156 /CUMM (130-400); RBC DISTRIBUTION WIDTH 20.7 % (11.5-14.5); RED BLOOD CELL CT 3.17 /CUMM (4.70-6.10); WHITE BLOOD CELL COUNT 14.9 /CUMM (4.8-10.8)
[2018-03-23] VITALS: BP 118/70
[2018-03-23 04:23] LABS: ABSOLUTE BASOPHIL COUNT 0 /CUMM (0.0-0.2); ABSOLUTE EOSINOPHIL COUNT 0 /CUMM (0.0-0.7); ABSOLUTE GRANULOCYTE CT 13.3 /CUMM (1.4-6.5); ABSOLUTE LYMPH COUNT 0.3 /CUMM (1.2-3.4); ABSOLUTE MONOCYTE COUNT 1.4 /CUMM (0.10-0.60); BASOPHIL % 0 % (0.0-2.0); EOSINOPHIL % 0.1 % (0-5); HEMATOCRIT 27.7 % (42-52); MEAN CORPUSCULAR HGB 29.3 PG (27.0-31.0); MEAN CORPUSCULAR HGB CONC 31.9 G/DL (33.0-37.0); MEAN PLATELET VOLUME 7.6 FL (7.4-10.4); PLATELET COUNT 138 /CUMM (130-400); RBC DISTRIBUTION WIDTH 21.5 % (11.5-14.5); RED BLOOD CELL CT 3.02 /CUMM (4.70-6.10)
[2018-03-23 04:48] LABS: GRANULOCYTE % 88.7 % (42.2-75.2)
--- NOTE | 2018-03-23 06:58 | PN- Housestaff ---
ChaniEverardo 03/23/18 0658: Subjective Follow-up For: Peripheral vascular disease status post right common femoral endarterectomy Right leg pain Anemia Reduced ejection fraction 20-30% Complaints: no complaints Review of Systems Constitutional: Denies: chills, fever. EENTM: Denies: no symptoms. Cardiovascular: Denies: chest pain, palpitations. Respiratory: Denies: cough, short of breath. Gastrointestinal: Denies: diarrhea, nausea, vomiting. Genitourinary: Denies: no symptoms. Musculoskeletal: Reports: see HPI. Objective Last 24 Hrs of Vital Signs/I&O Vital Signs Date Time Temp Pulse Resp B/P B/P Pulse O2 O2 Flow FiO2 Mean Ox Delivery Rate 03/23 0400 98 Nasal 1.0L Cannula 03/23 0000 98.1 72 20 118/70 94 Nasal 1.0L Cannula 03/23 0000 98 Nasal 1.0L Cannula 03/22 2000 99 Nasal 2.0L Cannula 03/22 1600 98 Nasal 2.0L Cannula 03/22 1600 97.7 72 12 118/62 98 Nasal 2.0L Cannula 03/22 1308 Room Air Room Air 03/22 0955 98.7 18 18 128/58 95 Room Air Room Air 03/22 0800 94 Room Air Room Air Intake & Output 03/23 0800 03/23 0000 03/22 1600 Intake Total 30 Output Total 200 250 600 Balance -200 -250 -570 Intake, Oral 30 Output, Urine 200 250 600 Physical Exam General Appearance: Alert, Oriented X3, Cooperative, No Acute Distress Skin: No Rashes Skin Temp/Moisture Exam: Warm/Dry Sepsis Skin Exam (color): Normal for Ethnicity HEENT: Atraumatic, PERRLA Neck: Supple, No JVD Cardiovascular: Regular Rate, Normal S1, 2/6 SYSTOLIC MURMUR Lungs: Clear to Auscultation, Normal Air Movement Abdomen: Normal Bowel Sounds, Soft, No Tenderness Neurological: Normal Speech, Normal Tone Extremities: Edema with venous stasis changes bilaterally Current Medications: Current Medications Sig/Salome Start time Last Medication Dose Route Stop Time Status Admin Albuterol Sulfate See Dose Q4-6 PRN PRN 03/17 1945 AC Insts (1) INH Ascorbic Acid 500 MG DAILY 03/18 900 AC 03/22 PO 08 Aspirin Buffered 81 MG QAM 03/18 09 AC 03/22 PO 0814 Budesonide/ 2 PUF BID 03/17 2100 AC 03/22 Formoterol Fumarate INH 0814 Carvedilol 6.25 MG BID 03/22 2100 AC PO Clopidogrel Bisulfate 75 MG DAILY 03/20 0900 AC 03/22 PO 0815 Cyanocobalamin 1,000 MCG DAILY 03/18 0900 AC 03/22 PO 0813 Digoxin 0.125 MG 1700 03/18 1700 AC 03/20 PO 1611 Ezetimibe 10 MG DAILY 03/18 0900 AC 03/22 PO 0813 Fentanyl Citrate 500 MCG .STK-MED ONE 03/22 1015 DC IM 03/22 1016 Ferrous Sulfate 325 MG TID 03/17 2100 AC 03/22 PO 0813 Glycerin 2 SPRAY Q2P PRN 03/23 0500 AC PO Heparin Sodium 5,000 UNIT Q8 03/22 2200 AC 03/23 (Porcine) SC 0538 Hydromorphone HCl 1 MG Q6 PRN 03/17 1945 AC 03/20 IV 1951 Insulin Aspart 0 TIDAC 03/22 1700 AC SC Insulin Detemir 4 UNITS QPM 03/22 2100 AC SC Insulin Human Regular 0 Q6 03/22 0000 DC 03/22 SC 0543 Levothyroxine Sodium 0.025 MG DAILY AC 03/18 0700 AC 03/22 PO 0543 Midazolam HCl 2 MG .STK-MED ONE 03/22 1015 DC IM 03/22 1016 Morphine Sulfate 2 MG Q6P PRN 03/17 1945 AC 03/23 IV 0451 Omeprazole 40 MG DAILY AC 03/19 0837 AC 03/22 PO 0543 Oxycodone/ 2 TAB Q6P PRN 03/17 194 03/22 Acetaminophen PO 0415 Patient Medication 1 ED ONE ONE 03/22 1315 DC 03/22 Teaching ED 03/22 1316 1707 Sertraline HCl 50 MG DAILY 03/18 0900 AC 03/22 PO 0813 Dose Instructions: (1)Albuterol Sulfate: 1-2 PUF Last 24 Hrs of Lab/Sadi Results Last 24 Hrs of Labs/Mics: Laboratory Tests 03/23/18 0340: Anion Gap 13, Estimated GFR 36 L, Glucose 95, Calcium 8.7, Phosphorus 5.9 H, Magnesium 2.3, Total Bilirubin 0.8, AST 26, ALT 99 H, Creatine Kinase Pending, Albumin 2.5 L, CBC w Diff NO MAN DIFF REQ, RBC 3.02 L, MCV 92.0, MCH 29.3, MCHC 31.9 L, RDW 21.5 H, MPV 7.6, Gran % 88.7 H, Lymphocytes % 2.1 L, Monocytes % 9.1, Eosinophils % 0.1, Basophils % 0, Absolute Granulocytes 13.3 H , Absolute Lymphocytes 0.3 L, Absolute Monocytes 1.4 H, Absolute Eosinophils 0 , Absolute Basophils 0 03/22/18 2300: Anion Gap 13, Estimated GFR 38 L, BUN/Creatinine Ratio 40.0 H, CBC w Diff NO MAN DIFF REQ, RBC 3.17 L, MCV 90.9, MCH 28.7, MCHC 31.6 L, RDW 20.7 H, MPV 7.3 L, Gran % 88.8 H, Lymphocytes % 1.9 L, Monocytes % 9.2, Eosinophils % 0.1 , Basophils % 0, Absolute Granulocytes 13.2 H, Absolute Lymphocytes 0.3 L, Absolute Monocytes 1.4 H, Absolute Eosinophils 0, Absolute Basophils 0 03/22/18 1630: APTT Cancelled 03/22/18 1445: CBC w Diff NO MAN DIFF REQ, RBC 3.28 L, MCV 89.8, MCH 29.6, MCHC 33.0, RDW 20.0 H, MPV 7.5, Gran % 79.9 H, Lymphocytes % 7.7 L, Monocytes % 11.3 H, Eosinophils % 1.0, Basophils % 0.1, Absolute Granulocytes 10.5 H, Absolute Lymphocytes 1.0 L, Absolute Monocytes 1.5 H, Absolute Eosinophils 0.1, Absolute Basophils 0 Microbiology 03/22 1635 UPPER RESP: Surveillance Culture - RECD 03/22 1635 GI: Surveillance Culture - RECD 03/22 1435 URINE OR: Urine Culture - COLB Assessment/Plan Assessment: Mr. Almanzar is a 67-year-old male with PMH of aortic stenosis, CAD s/p CABG (2016), CHF (last Echo 03/20/2018 that showed anterior wall hypokinesis and normal diastolic part in and reduced ejection fraction of 20-30% significant decrease from previous echo 3 months ago, Hypertension, hyperlipidemia, NSTEMI, PVD, urinary incontinence, CKD, and chronic osteomyelities w/ toes amputation who presented to [facility] with complains of progressive worsening right lower leg pain. Patient was found to have significant blood supply compromise to the right leg with pain at rest and extensive right common artery disease extending into the profunda. Problem list 1. Severe stenosis in the proximal superficial femoral artery. 2. GRECIA on CKD 3. Transaminitis 4. Anemia 5. History of PVD 6. History of Hypertension, Hyperlipidemia On March 22 the patient was taken to the OR for common femoral artery endarterectomy and post procedure the patient was transferred to the intensive care unit for 24 hours observation. There was no significant decrease in H&H postprocedure. The patient required 4 units of blood transfusion prior to the procedure with the recommendation by supervisor bakery sanitation to have had a H&H of 08/01 before procedure. Heart failure with reduced ejection fraction Patient followed by supervisor bakery sanitation Dr. English and also sink cutter Dr. Botello. Recommended the patient to start Coreg 6.5 mg twice a day but this dose was not given yesterday because the patient was very drowsy. This patient had non-ST elevated myocardial infarction about 6 weeks ago which can explain his dramatic decrease in ejection fraction. According to the ejection fraction the patient requires AICD but its worth to wait a while to see if ejection fraction can rebound back to normal recommendation provided by Dr. Botello. Patient may benefit from low dose entresto worth to discuss with Dr. English GRECIA on CKD Patient had a CK Do with Creatinine Increased to 2.3 from Baseline of around 1.8 -1.9. GRECIA Has Resolved and Is Now at Baseline of Creatinine Level. Continue to Avoid Nephrotoxic Medications. Mansoor Discussed with the Patient Possible Requirement of Dialysis in the Future and to Consider Allergy Referral to Legal Compliance Officer for Workup and Future Plannings. Diabetes mellitus Patient was insulin sliding scale per nothing by mouth has been changed to low dose of Levemir and 3 times a day subcutaneous insulin. Throughout his stay in the ICU sugar has been controlled and the last sugar readings 118, 101, 101, 118 , 118. Anemia Most likely due to chronic kidney disease stage III B. H&H has remained stable. Last transition just before procedure and postprocedure H&H hemorrhage is not unchanged. We'll continue to monitor H&H. Transaminitis Significant improvement [place] presentation 324 and today is 99. Patient atorvastatin was put on hold I rechecked CPK today and is normal at 94. Continue to monitor liver functions. Problem List: 1. Peripheral vascular disease 2. Pedal edema 3. Renal insufficiency 4. Intractable pain 5. Diabetes mellitus Pain Ratin Pain Location: Right leg Pain Goal: Pain 4 or less Pain Plan: Patient is on IV Dilaudid and morphine Tomorrow's Labs & Rationales: ICU bundle and CBC DVT/Prophylaxis: pharmacological Anoop Husain MD 03/23/18 1511: Attending MD Review Statement Attending Statement Attending MD Statement: examined this patient, discuss w/resident/PA/ACCOUNTANT HELPER, agreed w/resident/PA/ACCOUNTANT HELPER, reviewed EMR data (avail), discussed with nursing, amended to note Attending Assessment/Plan: The patient was seen and discussed with house staff. Appreciate Vascular, Cardiology (EPS), Podiatry, and Nephrology follow-up. More alert today compared to my last seeing this patient (03/21). Urine output low. Agree with encouraging po intake.
[2018-03-23 08:00] VITALS: BP 112/50
--- NOTE | 2018-03-23 10:34 | PN- Vascular Surgery ---
Subjective Subjective: Patient comfortable, more awake and alert, no acute events overnight Objective Vital Signs and I&Os Vital Signs Date Time Temp Pulse Resp B/P B/P Pulse O2 O2 Flow FiO2 Mean Ox Delivery Rate 03/23 0841 69 119/47 03/23 0800 98.4 67 18 112/50 92 Nasal 1.0L Cannula 03/23 0800 92 Nasal 1.0L Cannula 03/23 0400 98 Nasal 1.0L Cannula 03/23 0000 98.1 72 20 118/70 94 Nasal 1.0L Cannula 03/23 0000 98 Nasal 1.0L Cannula 03/22 2000 99 Nasal 2.0L Cannula 03/22 1600 98 Nasal 2.0L Cannula 03/22 1600 97.7 72 12 118/62 98 Nasal 2.0L Cannula 03/22 1308 Room Air Room Air Intake & Output 03/23 1600 03/23 0800 03/23 0000 03/22 1600 03/22 0800 03/22 0000 Intake Total 30 0 100 Output Total 200 250 600 600 300 Balance -200 -250 -570 -600 -200 Intake, Oral 30 0 100 Output, Urine 200 250 600 600 300 Patient 169 lb 170 lb Weight Weight Bed scale Measurement Method Physical Exam: Well-developed well-nourished no apparent distress. HEENT: Atraumatic, Respiratory: No respiratory distress Neuro: Alert and oriented x3 Right-sided surgical site Sabrina VAC in place, clean dry and intact, no swelling Palpable posterior tibial pulse left lower extremity, dopplerable posterior tibial pulse right lower extremity, right foot dressing in place, clean dry and intact Assessment/Plan Assessment/Plan A- POD1 sp Right femoral endarerectomy, P- bedrest until 4pm pulse checks ada diet plavix, asa tight glucose control medical mgmt per primary team Continue Sabrina VAC until battery runs out and device starts beeping, then it may be removed and dry sterile dressing applied, usually this is 7 days
--- NOTE | 2018-03-23 12:03 | PN- Nephrology ---
Assessment/Plan Nephrology Assessment: GRECIA - Improved back to baseline - likely 2/2 contrast prior to admission. Stage III CKD - baseline SCr in mid to high 1's - variably proteinuric - likely 2/2 hypertensive nephrosclerosis, chronic cardiorenal syndrome, and vascular disease. Anemia - Out of proportion to kidney disease. Has received 4U PRBC. Stool is guaic positive - GI following. I would check ferritin, iron stores, Vit B12, Folate, and retic count (had been increased before). Hypernatremia - Likely reflective of decreased free water intake - OK to drink free water to thirst. Not polyuric to suggest DI. PVD - s/p common femoral endarterectomy. Suggestion: -May need to start maintenance IVF if continues to be lethargic and unable to take in PO - appears dry (dry mouth, wrinkles on legs) - if needed would hypotonic IVF given concurrent issue with hypernatremia - D5 1/2 NS would be reasonable -Cont to hold diuretics -Check ferritin, iron stores, Vit B12, Folate, and retic count (had been increased before). Please call [phone] with ?'s Subjective Subjective: s/p R common femoral endarterectomy Diagnostic angiogram performed as well No noted complications SCr had been down to 1.5 pre-op; now 1.9 - no documented hypotension Pt lethargic (noted to be better today) Objective Vital Signs and I&Os Vital Signs Date Time Temp Pulse Resp B/P B/P Pulse O2 O2 Flow FiO2 Mean Ox Delivery Rate 03/23 0841 69 119/47 03/23 0800 98.4 67 18 112/50 92 Nasal 1.0L Cannula 03/23 0800 92 Nasal 1.0L Cannula 03/23 0400 98 Nasal 1.0L Cannula 03/23 0000 98.1 72 20 118/70 94 Nasal 1.0L Cannula 03/23 0000 98 Nasal 1.0L Cannula 03/22 2000 99 Nasal 2.0L Cannula 03/22 1600 98 Nasal 2.0L Cannula 03/22 1600 97.7 72 12 118/62 98 Nasal 2.0L Cannula 03/22 1308 Room Air Room Air Intake & Output 03/23 1600 03/23 0400 03/22 1600 03/22 0400 03/21 1600 03/21 0400 Intake Total 30 100 716.4 59.4 Output Total 200 250 900 600 725 200 Balance -200 -250 -870 -500 -8.6 -140.6 Intake, IV 316.4 59.4 Intake, Oral 30 100 400 Number 0 Bowel Movements Output, Urine 200 250 900 600 725 200 Patient 169 lb 170 lb 181 lb Weight Weight Bed scale Bed scale Measurement Method Physical Exam: Gen - lethargic HEENT - dry mouth CV - RRR, no m/r/g Chest - clear anteriorly, poor inspiratory effort Abd - soft, NTND Ext - wrinkles on legs; chronic skin changes; s/p multiple toe amputations; R foot wrapped Neuro - lethargic Current Medications: Current Medications Sig/Salome Start time Last Medication Dose Route Stop Time Status Admin Albuterol Sulfate See Dose Q4-6 PRN PRN 03/17 1945 Insts (1) INH Ascorbic Acid 500 MG DAILY 03/18 09 AC 03/23 PO 0841 Aspirin Buffered 81 MG QAM 03/18 0900 AC 03/23 PO 0840 Budesonide/ 2 PUF BID 03/17 2100 AC 03/23 Formoterol Fumarate INH 0842 Carvedilol 6.25 MG BID 03/22 2100 AC 03/23 PO 0841 Clopidogrel Bisulfate 75 MG DAILY 03/20 0900 AC 03/23 PO 0841 Cyanocobalamin 1,000 MCG DAILY 03/18 0900 AC 03/23 PO 0841 Digoxin 0.125 MG 1700 03/18 1700 AC 03/20 PO 1611 Ezetimibe 10 MG DAILY 03/18 0900 AC 03/23 PO 0842 Ferrous Sulfate 325 MG TID 03/17 2100 AC 03/23 PO 0841 Glycerin 2 SPRAY Q2P PRN 03/23 0500 PO Heparin Sodium 5,000 UNIT Q8 03/22 2200 AC 03/23 (Porcine) SC 0538 Hydromorphone HCl 1 MG Q6 PRN 03/17 194 AC 03/20 IV 1951 Insulin Aspart 0 TIDAC 03/22 1700 SC Insulin Detemir 4 UNITS QPM 03/22 2100 SC Insulin Human Regular 0 Q6 03/22 0000 DC 03/22 SC 0543 Levothyroxine Sodium 0.025 MG DAILY AC 03/18 0700 AC 03/22 PO 0543 Morphine Sulfate 2 MG Q6P PRN 03/17 1945 DC 03/23 IV 0451 Omeprazole 40 MG DAILY AC 03/19 0837 AC 03/22 PO 0543 Oxycodone/ 2 TAB Q6P PRN 03/17 1945 AC 03/22 Acetaminophen PO 0415 Patient Medication 1 ED ONE ONE 03/22 1315 DC 03/22 Teaching ED 03/22 1316 1707 Sertraline HCl 50 MG DAILY 03/18 0900 AC 03/23 PO 0842 Dose Instructions: (1)Albuterol Sulfate: 1-2 PUF Results Pertinent Lab Results: Laboratory Tests 03/23 03/22 0340 2300 Chemistry Sodium (137 - 145 mmol/L) 147 H 148 H Potassium (3.5 - 5.1 mmol/L) 5.1 5.1 Chloride (98 - 107 mmol/L) 115 H 116 H Carbon Dioxide (22 - 30 mmol/L) 19 L 19 L Anion Gap (5 - 16) 13 13 BUN (9 - 20 mg/dL) 74 H 72 H Creatinine (0.7 - 1.2 mg/dL) 1.9 H 1.8 H Estimated GFR (>60 ml/min) 36 L 38 L BUN/Creatinine Ratio (7 - 25 %) 40.0 H Glucose (65 - 99 mg/dL) 95 Calcium (8.4 - 10.2 mg/dL) 8.7 Phosphorus (2.5 - 4.5 mg/dL) 5.9 H Magnesium (1.6 - 2.3 mg/dL) 2.3 Total Bilirubin (0.2 - 1.3 mg/dL) 0.8 AST (17 - 59 U/L) 26 ALT (21 - 72 U/L) 99 H Creatine Kinase (55 - 170 U/L) 98 Albumin (3.5 - 5.0 g/dL) 2.5 L Hematology CBC w Diff NO MAN DIFF REQ NO MAN DIFF REQ WBC (4.8 - 10.8 /CUMM) 15.0 H 14.9 H RBC (4.70 - 6.10 /CUMM) 3.02 L 3.17 L Hgb (14.0 - 18.0 G/DL) 8.9 L 9.1 L Hct (42 - 52 %) 27.7 L 28.8 L MCV (80.0 - 94.0 FL) 92.0 90.9 MCH (27.0 - 31.0 PG) 29.3 28.7 MCHC (33.0 - 37.0 G/DL) 31.9 L 31.6 L RDW (11.5 - 14.5 %) 21.5 H 20.7 H Plt Count (130 - 400 /CUMM) 138 156 MPV (7.4 - 10.4 FL) 7.6 7.3 L Gran % (42.2 - 75.2 %) 88.7 H 88.8 H Lymphocytes % (20.5 - 51.1 %) 2.1 L 1.9 L Monocytes % (1.7 - 9.3 %) 9.1 9.2 Eosinophils % (0 - 5 %) 0.1 0.1 Basophils % (0.0 - 2.0 %) 0 0 Absolute Granulocytes (1.4 - 6.5 /CUMM) 13.3 H 13.2 H Absolute Lymphocytes (1.2 - 3.4 /CUMM) 0.3 L 0.3 L Absolute Monocytes (0.10 - 0.60 /CUMM) 1.4 H 1.4 H Absolute Eosinophils (0.0 - 0.7 /CUMM) 0 0 Absolute Basophils (0.0 - 0.2 /CUMM) 0 0 /18 18 1630 1445 Coagulation APTT Cancelled Hematology CBC w Diff NO MAN DIFF REQ WBC (4.8 - 10.8 /CUMM) 13.1 H RBC (4.70 - 6.10 /CUMM) 3.28 L Hgb (14.0 - 18.0 G/DL) 9.7 L Hct (42 - 52 %) 29.4 L MCV (80.0 - 94.0 FL) 89.8 MCH (27.0 - 31.0 PG) 29.6 MCHC (33.0 - 37.0 G/DL) 33.0 RDW (11.5 - 14.5 %) 20.0 H Plt Count (130 - 400 /CUMM) 143 MPV (7.4 - 10.4 FL) 7.5 Gran % (42.2 - 75.2 %) 79.9 H Lymphocytes % (20.5 - 51.1 %) 7.7 L Monocytes % (1.7 - 9.3 %) 11.3 H Eosinophils % (0 - 5 %) 1.0 Basophils % (0.0 - 2.0 %) 0.1 Absolute Granulocytes (1.4 - 6.5 /CUMM) 10.5 H Absolute Lymphocytes (1.2 - 3.4 /CUMM) 1.0 L Absolute Monocytes (0.10 - 0.60 /CUMM) 1.5 H Absolute Eosinophils (0.0 - 0.7 /CUMM) 0.1 Absolute Basophils (0.0 - 0.2 /CUMM) 0 03/22 03/22 03/21 0705 0420 1632 Chemistry Sodium (137 - 145 mmol/L) 145 Potassium (3.5 - 5.1 mmol/L) 4.5 Chloride (98 - 107 mmol/L) 115 H Carbon Dioxide (22 - 30 mmol/L) 19 L Anion Gap (5 - 16) 11 BUN (9 - 20 mg/dL) 73 H Creatinine (0.7 - 1.2 mg/dL) 1.5 H Estimated GFR (>60 ml/min) 47 L BUN/Creatinine Ratio (7 - 25 %) 48.7 H Total Bilirubin (0.2 - 1.3 mg/dL) 1.1 Direct Bilirubin (< 0.4 mg/dL) 0.6 H AST (17 - 59 U/L) 32 ALT (21 - 72 U/L) 118 H Alkaline Phosphatase (< 127 U/L) 81 Total Protein (6.3 - 8.2 g/dL) 6.7 Albumin (3.5 - 5.0 g/dL) 2.6 L Coagulation APTT (25 - 37 SEC) 70 H 88 H Hematology CBC w Diff MAN DIFF ORDERED WBC (4.8 - 10.8 /CUMM) 12.0 H RBC (4.70 - 6.10 /CUMM) 3.12 L Hgb (14.0 - 18.0 G/DL) 9.2 L Hct (42 - 52 %) 27.7 L MCV (80.0 - 94.0 FL) 88.8 MCH (27.0 - 31.0 PG) 29.4 MCHC (33.0 - 37.0 G/DL) 33.2 RDW (11.5 - 14.5 %) 20.3 H Plt Count (130 - 400 /CUMM) 144 MPV (7.4 - 10.4 FL) 8.0 Gran % (42.2 - 75.2 %) 84.7 H Lymphocytes % (20.5 - 51.1 %) 4.1 L Monocytes % (1.7 - 9.3 %) 10.6 H Eosinophils % (0 - 5 %) 0.6 Basophils % (0.0 - 2.0 %) 0 Absolute Granulocytes (1.4 - 6.5 /CUMM) 10.2 H Absolute Lymphocytes (1.2 - 3.4 /CUMM) 0.5 L Absolute Monocytes (0.10 - 0.60 /CUMM) 1.3 H Absolute Eosinophils (0.0 - 0.7 /CUMM) 0.1 Absolute Basophils (0.0 - 0.2 /CUMM) 0 Platelet Estimate (ADEQUATE) VERIFIED BY SMEAR Polychromasia 1+ Anisocytosis 1+ 03/21 03/21 0655 0343 Chemistry Sodium (137 - 145 mmol/L) 146 H Potassium (3.5 - 5.1 mmol/L) 4.3 Chloride (98 - 107 mmol/L) 113 H Carbon Dioxide (22 - 30 mmol/L) 23 Anion Gap (5 - 16) 11 BUN (9 - 20 mg/dL) 81 H Creatinine (0.7 - 1.2 mg/dL) 1.7 H Estimated GFR (>60 ml/min) 40 L BUN/Creatinine Ratio (7 - 25 %) 47.6 H Coagulation APTT (25 - 37 SEC) 81 H 71 H Hematology CBC w Diff NO MAN DIFF REQ WBC (4.8 - 10.8 /CUMM) 10.4 RBC (4.70 - 6.10 /CUMM) 2.89 L Hgb (14.0 - 18.0 G/DL) 8.4 L Hct (42 - 52 %) 25.9 L MCV (80.0 - 94.0 FL) 89.4 MCH (27.0 - 31.0 PG) 29.0 MCHC (33.0 - 37.0 G/DL) 32.5 L RDW (11.5 - 14.5 %) 21.7 H Plt Count (130 - 400 /CUMM) 147 MPV (7.4 - 10.4 FL) 7.7 Gran % (42.2 - 75.2 %) 82.8 H Lymphocytes % (20.5 - 51.1 %) 4.5 L Monocytes % (1.7 - 9.3 %) 11.0 H Eosinophils % (0 - 5 %) 1.6 Basophils % (0.0 - 2.0 %) 0.1 Absolute Granulocytes (1.4 - 6.5 /CUMM) 8.6 H Absolute Lymphocytes (1.2 - 3.4 /CUMM) 0.5 L Absolute Monocytes (0.10 - 0.60 /CUMM) 1.1 H Absolute Eosinophils (0.0 - 0.7 /CUMM) 0.2 Absolute Basophils (0.0 - 0.2 /CUMM) 0 03/20 1413 1200 Coagulation APTT (25 - 37 SEC) 65 H Hematology CBC w Diff NO MAN DIFF REQ Cancelled WBC (4.8 - 10.8 /CUMM) 11.6 H Cancelled RBC (4.70 - 6.10 /CUMM) 2.98 L Cancelled Hgb (14.0 - 18.0 G/DL) 8.6 L Cancelled Hct (42 - 52 %) 27.0 L Cancelled MCV (80.0 - 94.0 FL) 90.7 Cancelled MCH (27.0 - 31.0 PG) 28.9 Cancelled MCHC (33.0 - 37.0 G/DL) 31.9 L Cancelled RDW (11.5 - 14.5 %) 22.3 H Cancelled Plt Count (130 - 400 /CUMM) 159 Cancelled MPV (7.4 - 10.4 FL) 7.5 Cancelled Gran % (42.2 - 75.2 %) 84.6 H Lymphocytes % (20.5 - 51.1 %) 4.2 L Monocytes % (1.7 - 9.3 %) 9.6 H Eosinophils % (0 - 5 %) 1.5 Basophils % (0.0 - 2.0 %) 0.1 Absolute Granulocytes (1.4 - 6.5 /CUMM) 9.8 H Absolute Lymphocytes (1.2 - 3.4 /CUMM) 0.5 L Absolute Monocytes (0.10 - 0.60 /CUMM) 1.1 H Absolute Eosinophils (0.0 - 0.7 /CUMM) 0.2 Absolute Basophils (0.0 - 0.2 /CUMM) 0 Imaging/Other Studies: EXAM TYPE: US - US-RENAL/KIDNEY EXAMINATION: US RETROPERITONEAL COMPLETE (RENAL) CLINICAL INFORMATION: Hypertensive nephrosclerosis. COMPARISON: Prior ultrasound of the kidneys and bladder November 2017 TECHNIQUE: Real-time imaging of the kidneys and bladder. FINDINGS: RIGHT KIDNEY: Right kidney measures 10.8 x 5.3 x 5.5 cm. There is a 2 cm cyst in the midpole and 7 mm cyst in lower pole. There is a 3 mm nonobstructing stone in the midpole. LEFT KIDNEY: The kidney measures 12.6 x 5.6 x 4.7 cm. There are 3 cysts present largest measuring 5 cm in the upper pole overall unchanged BLADDER: Well-distended and normal. Bilateral ureteral jets are demonstrated. Prevoid bladder volume is 8.8 mL. IMPRESSION: Cysts in both kidneys unchanged. Nonobstructing stone midpole right kidney unchanged. Otherwise unremarkable.
--- NOTE | 2018-03-23 12:59 | PN- Podiatry ---
Subjective Subjective: Patient is seen and evaluated at bedside in the intensive care unit for continuing care of bullous changes on the dorsum of his right foot. Patient is postoperative day 1 right femoral endarterectomy by Dr. Sanchez & Dr. Gage. He is more responsive than he was yesterday when I had seen him, he is in no apparent distress, afebrile, vital signs stable. He remains mildly confused, which is also his preoperative state. Review of Systems: Review of systems is deferred secondary to the patient's confusion. He reports pain in both lower extremities, right more so than left. Objective Vital Signs and I&Os Vital Signs Date Time Temp Pulse Resp B/P B/P Pulse O2 O2 Flow FiO2 Mean Ox Delivery Rate 03/23 1200 Nasal 1.0L Cannula 03/23 0841 69 119/47 03/23 0800 98.4 67 18 112/50 92 Nasal 1.0L Cannula 03/23 0800 92 Nasal 1.0L Cannula 03/23 0400 98 Nasal 1.0L Cannula 03/23 0000 98.1 72 20 118/70 94 Nasal 1.0L Cannula 03/23 0000 98 Nasal 1.0L Cannula 03/22 2000 99 Nasal 2.0L Cannula 03/22 1600 98 Nasal 2.0L Cannula 03/22 1600 97.7 72 12 118/62 98 Nasal 2.0L Cannula 03/22 1308 Room Air Room Air Intake & Output 03/23 1600 03/23 0800 03/23 0000 03/22 1600 03/22 0800 03/22 0000 Intake Total 30 0 100 Output Total 200 250 600 600 300 Balance -200 -250 -570 -600 -200 Intake, Oral 30 0 100 Output, Urine 200 250 600 600 300 Patient 169 lb 170 lb Weight Weight Bed scale Measurement Method Physical Exam: Patient continues to have nonpalpable pedal pulses, and his temperature gradient on the right lower extremity continues to normalize, the distal right leg and foot are now warm related previously been cold. The bullous changes on the dorsal aspect of the foot continued to remain epidermal only, with significant serous drainage, but has slightly increased with the revascularization. The remaining dermis is all intact. The bulla totals 10 cm anterior to posterior and 8 cm medial to lateral. He has other small bullous changes in the leg, but these are dry and already epithelializing over. Current Medications: Current Medications Sig/Salome Start time Last Medication Dose Route Stop Time Status Admin Albuterol Sulfate See Dose Q4-6 PRN PRN 03/17 194 AC Insts (1) INH Ascorbic Acid 500 MG DAILY 03/18 0900 AC 03/23 PO 0841 Aspirin Buffered 81 MG QAM 03/18 0900 AC 03/23 PO 0840 Budesonide/ 2 PUF BID 03/17 2100 AC 03/23 Formoterol Fumarate INH 0842 Carvedilol 6.25 MG BID 03/22 2100 AC 03/23 PO 0841 Clopidogrel Bisulfate 75 MG DAILY 03/20 0900 AC 03/23 PO 0841 Cyanocobalamin 1,000 MCG DAILY 03/18 0900 AC 03/23 PO 0841 Digoxin 0.125 MG 1700 03/18 1700 AC 03/20 PO 1611 Ezetimibe 10 MG DAILY 03/18 0900 AC 03/23 PO 0842 Ferrous Sulfate 325 MG TID 03/17 2100 AC 03/23 PO 0841 Glycerin 2 SPRAY Q2P PRN 03/23 0500 AC PO Heparin Sodium 5,000 UNIT Q8 03/22 2200 AC 03/23 (Porcine) SC 0538 Hydromorphone HCl 1 MG Q6 PRN 03/17 1945 AC 03/20 IV 1951 Insulin Aspart 0 TIDAC 03/22 1700 AC SC Insulin Detemir 4 UNITS QPM 03/22 2100 AC SC Insulin Human Regular 0 Q6 03/22 0000 DC 03/22 SC 0543 Levothyroxine Sodium 0.025 MG DAILY AC 03/18 0700 AC 03/22 PO 0543 Morphine Sulfate 2 MG Q6P PRN 03/17 194 DC 03/23 IV 0451 Omeprazole 40 MG DAILY AC 03/19 0837 AC 03/22 PO 0543 Oxycodone/ 2 TAB Q6P PRN 03/17 1945 AC 03/22 Acetaminophen PO 0415 Patient Medication 1 ED ONE ONE 03/22 1315 DC 03/22 Teaching ED 03/22 1316 1707 Sertraline HCl 50 MG DAILY 03/18 0900 AC 03/23 PO 0842 Dose Instructions: (1)Albuterol Sulfate: 1-2 PUF Results Last 48 Hours of Labs: Laboratory Tests 03/23 03/22 0340 2300 Chemistry Sodium (137 - 145 mmol/L) 147 H 148 H Potassium (3.5 - 5.1 mmol/L) 5.1 5.1 Chloride (98 - 107 mmol/L) 115 H 116 H Carbon Dioxide (22 - 30 mmol/L) 19 L 19 L Anion Gap (5 - 16) 13 13 BUN (9 - 20 mg/dL) 74 H 72 H Creatinine (0.7 - 1.2 mg/dL) 1.9 H 1.8 H Estimated GFR (>60 ml/min) 36 L 38 L BUN/Creatinine Ratio (7 - 25 %) 40.0 H Glucose (65 - 99 mg/dL) 95 Calcium (8.4 - 10.2 mg/dL) 8.7 Phosphorus (2.5 - 4.5 mg/dL) 5.9 H Magnesium (1.6 - 2.3 mg/dL) 2.3 Total Bilirubin (0.2 - 1.3 mg/dL) 0.8 AST (17 - 59 U/L) 26 ALT (21 - 72 U/L) 99 H Creatine Kinase (55 - 170 U/L) 98 Albumin (3.5 - 5.0 g/dL) 2.5 L Hematology CBC w Diff NO MAN DIFF REQ NO MAN DIFF REQ WBC (4.8 - 10.8 /CUMM) 15.0 H 14.9 H RBC (4.70 - 6.10 /CUMM) 3.02 L 3.17 L Hgb (14.0 - 18.0 G/DL) 8.9 L 9.1 L Hct (42 - 52 %) 27.7 L 28.8 L MCV (80.0 - 94.0 FL) 92.0 90.9 MCH (27.0 - 31.0 PG) 29.3 28.7 MCHC (33.0 - 37.0 G/DL) 31.9 L 31.6 L RDW (11.5 - 14.5 %) 21.5 H 20.7 H Plt Count (130 - 400 /CUMM) 138 156 MPV (7.4 - 10.4 FL) 7.6 7.3 L Gran % (42.2 - 75.2 %) 88.7 H 88.8 H Lymphocytes % (20.5 - 51.1 %) 2.1 L 1.9 L Monocytes % (1.7 - 9.3 %) 9.1 9.2 Eosinophils % (0 - 5 %) 0.1 0.1 Basophils % (0.0 - 2.0 %) 0 0 Absolute Granulocytes (1.4 - 6.5 /CUMM) 13.3 H 13.2 H Absolute Lymphocytes (1.2 - 3.4 /CUMM) 0.3 L 0.3 L Absolute Monocytes (0.10 - 0.60 /CUMM) 1.4 H 1.4 H Absolute Eosinophils (0.0 - 0.7 /CUMM) 0 0 Absolute Basophils (0.0 - 0.2 /CUMM) 0 0 03/22 03/22 1630 1445 Coagulation APTT Cancelled Hematology CBC w Diff NO MAN DIFF REQ WBC (4.8 - 10.8 /CUMM) 13.1 H RBC (4.70 - 6.10 /CUMM) 3.28 L Hgb (14.0 - 18.0 G/DL) 9.7 L Hct (42 - 52 %) 29.4 L MCV (80.0 - 94.0 FL) 89.8 MCH (27.0 - 31.0 PG) 29.6 MCHC (33.0 - 37.0 G/DL) 33.0 RDW (11.5 - 14.5 %) 20.0 H Plt Count (130 - 400 /CUMM) 143 MPV (7.4 - 10.4 FL) 7.5 Gran % (42.2 - 75.2 %) 79.9 H Lymphocytes % (20.5 - 51.1 %) 7.7 L Monocytes % (1.7 - 9.3 %) 11.3 H Eosinophils % (0 - 5 %) 1.0 Basophils % (0.0 - 2.0 %) 0.1 Absolute Granulocytes (1.4 - 6.5 /CUMM) 10.5 H Absolute Lymphocytes (1.2 - 3.4 /CUMM) 1.0 L Absolute Monocytes (0.10 - 0.60 /CUMM) 1.5 H Absolute Eosinophils (0.0 - 0.7 /CUMM) 0.1 Absolute Basophils (0.0 - 0.2 /CUMM) 0 03/22 03/22 03/21 0705 0420 1632 Chemistry Sodium (137 - 145 mmol/L) 145 Potassium (3.5 - 5.1 mmol/L) 4.5 Chloride (98 - 107 mmol/L) 115 H Carbon Dioxide (22 - 30 mmol/L) 19 L Anion Gap (5 - 16) 11 BUN (9 - 20 mg/dL) 73 H Creatinine (0.7 - 1.2 mg/dL) 1.5 H Estimated GFR (>60 ml/min) 47 L BUN/Creatinine Ratio (7 - 25 %) 48.7 H Total Bilirubin (0.2 - 1.3 mg/dL) 1.1 Direct Bilirubin (< 0.4 mg/dL) 0.6 H AST (17 - 59 U/L) 32 ALT (21 - 72 U/L) 118 H Alkaline Phosphatase (< 127 U/L) 81 Total Protein (6.3 - 8.2 g/dL) 6.7 Albumin (3.5 - 5.0 g/dL) 2.6 L Coagulation APTT (25 - 37 SEC) 70 H 88 H Hematology CBC w Diff MAN DIFF ORDERED WBC (4.8 - 10.8 /CUMM) 12.0 H RBC (4.70 - 6.10 /CUMM) 3.12 L Hgb (14.0 - 18.0 G/DL) 9.2 L Hct (42 - 52 %) 27.7 L MCV (80.0 - 94.0 FL) 88.8 MCH (27.0 - 31.0 PG) 29.4 MCHC (33.0 - 37.0 G/DL) 33.2 RDW (11.5 - 14.5 %) 20.3 H Plt Count (130 - 400 /CUMM) 144 MPV (7.4 - 10.4 FL) 8.0 Gran % (42.2 - 75.2 %) 84.7 H Lymphocytes % (20.5 - 51.1 %) 4.1 L Monocytes % (1.7 - 9.3 %) 10.6 H Eosinophils % (0 - 5 %) 0.6 Basophils % (0.0 - 2.0 %) 0 Absolute Granulocytes (1.4 - 6.5 /CUMM) 10.2 H Absolute Lymphocytes (1.2 - 3.4 /CUMM) 0.5 L Absolute Monocytes (0.10 - 0.60 /CUMM) 1.3 H Absolute Eosinophils (0.0 - 0.7 /CUMM) 0.1 Absolute Basophils (0.0 - 0.2 /CUMM) 0 Platelet Estimate (ADEQUATE) VERIFIED BY SMEAR Polychromasia 1+ Anisocytosis 1+ Assessment/Plan Assessment/Plan 67-year-old diabetic male with peripheral arterial disease status post right femoral endarterectomy with significant reperfusion and stable bullous changes on the dorsal right foot. The patient was seen and evaluated in the intensive care unit. Triple antibiotic ointment, Adaptic, AVD pads, and Kerlix applied w a dry sterile dressing Will begin SSD dressings with Adaptic daily, and this will be his discharge recommendation when he is transferred to a short term rehabilitation facility He may weight-bear as tolerated to the bathroom and back, and so long as it is not contraindicated by the vascular surgery team. I will f/u on this patient daily while admitted. Core Measures Venous Thromboembolism VTE Risk Factors Age>40 No Mechanical VTE Prophylaxis d/t N/A MechProphylax Ordered No VTE Pharm Prophylaxis d/t NA PharmProphylax ordered
[2018-03-23 16:00] VITALS: BP 110/0
--- NOTE | 2018-03-23 17:41 | PN- Cardiology ---
Subjective Subjective: * Patient is lethargic and confused this morning without complaints. * creatinine is 1.9 with sodium 147 * increased WBC count * sinus rhythm Objective Vital Signs and I&Os Vital Signs Date Time Temp Pulse Resp B/P B/P Pulse O2 O2 Flow FiO2 Mean Ox Delivery Rate 03/23 1600 97.7 58 20 110/0 96 Nasal 1.0L Cannula 03/23 1200 Nasal 1.0L Cannula 03/23 0841 69 119/47 03/23 0800 98.4 67 18 112/50 92 Nasal 1.0L Cannula 03/23 0800 92 Nasal 1.0L Cannula 03/23 0400 98 Nasal 1.0L Cannula 03/23 0000 98.1 72 20 118/70 94 Nasal 1.0L Cannula 03/23 0000 98 Nasal 1.0L Cannula 03/22 2000 99 Nasal 2.0L Cannula Intake & Output 03/23 1600 03/23 0800 03/23 0000 03/22 1600 03/22 0800 03/22 0000 Intake Total 620 30 0 100 Output Total 190 200 250 600 600 300 Balance 430 -200 -250 -570 -600 -200 Intake, IV 20 Intake, Oral 600 30 0 100 Output, Urine 190 200 250 600 600 300 Patient 169 lb 170 lb Weight Weight Bed scale Measurement Method Physical Exam: General: WD/WN male in NAD; lethargic and confused HEENT: NC/AT, PERRL, EOMI Neck: no JVD, no carotid bruit Heart: RRR with 2/6 systolic murmur Lungs: clear bilaterally Abdomen: soft, NT, +ve bowel sounds Extremities: 1+ bilateral leg edema, venous stasis changes bilaterally, toe amputations bilaterally Assessment/Plan Assessment/Plan * This patient has had a NSTEMI within the past six weeks. He also has renal insufficiency and hepatic insufficiency. As such, his surgical risk was increased but he nevertheless appears to be doing well following a right common femoral endarterectomy. * This patient may have anemia due to renal insuffciency however a prior workup disclosed an increased reticulocyte count instead of a low retic count that goes along better with bleeding than decreased production. Guaiac all stools and follow his H/H. * This patient has evidence of hepatic insufficiency likely related to RV dysfunction that appears to be improving. Continue to hold Atorvastatin for now. * In consideration of this patient's poor EF he was seen by Dr. Botello who is inclined to pursue AICD placement with HIS bundle pacing if the patient agrees. At present, he is lethargic and confused so this issue will be considered as an outpatient when more stable. * A small dose of Coreg is reasonable to try. I would not start Entresto due to his renal insufficiency. Continue telemetry? Yes
[2018-03-23 23:00] VITALS: BP 100/40
[2018-03-24 05:12] LABS: ABSOLUTE BASOPHIL COUNT 0 /CUMM (0.0-0.2); ABSOLUTE EOSINOPHIL COUNT 0.1 /CUMM (0.0-0.7); ABSOLUTE GRANULOCYTE CT 14.5 /CUMM (1.4-6.5); ABSOLUTE LYMPH COUNT 0.4 /CUMM (1.2-3.4); ABSOLUTE MONOCYTE COUNT 1.5 /CUMM (0.10-0.60); BASOPHIL % 0 % (0.0-2.0); EOSINOPHIL % 0.4 % (0-5); GRANULOCYTE % 88.2 % (42.2-75.2); HEMATOCRIT 27.5 % (42-52); MEAN CORPUSCULAR HGB 29.1 PG (27.0-31.0); MEAN CORPUSCULAR HGB CONC 31.6 G/DL (33.0-37.0); PLATELET COUNT 140 /CUMM (130-400); RBC DISTRIBUTION WIDTH 21.5 % (11.5-14.5); RED BLOOD CELL CT 2.99 /CUMM (4.70-6.10); WHITE BLOOD CELL COUNT 16.4 /CUMM (4.8-10.8)
--- NOTE | 2018-03-24 07:03 | PN- Housestaff ---
Everardo Wilde 03/24/18 0703: Subjective Follow-up For: Peripheral vascular disease status post a right common femoral endarterectomy Multidigit amputation Reduced ejection fraction 20-30% Confusion Complaints: no complaints Tele-Events Since Last Visit: Multiple episodes of bradycardia lowest 48 bpm Subjective: Reviewed the patient lying comfortably on the bed he reports to have slept very well. He reports that his lower limb pain has improved significantly. Patient is being fed cannot eat by himself. Review of Systems Constitutional: Denies: chills, fever. Cardiovascular: Denies: chest pain, palpitations. Respiratory: Denies: cough, short of breath. Gastrointestinal: Denies: abdominal pain, nausea, vomiting. Genitourinary: Denies: no symptoms. Musculoskeletal: Reports: see HPI. Skin: Reports: see HPI. Objective Last 24 Hrs of Vital Signs/I&O Vital Signs Date Time Temp Pulse Resp B/P B/P Pulse O2 O2 Flow FiO2 Mean Ox Delivery Rate 03/24 0400 99 Nasal 1.0L Cannula 03/24 0000 99 Nasal 1.0L Cannula 03/23 2300 97.5 54 18 100/40 96 Nasal 1.0L Cannula 03/23 2057 53 114/45 03/23 2000 100 Nasal 1.0L Cannula 03/23 1813 52 120/50 03/23 1600 Nasal 1.0L Cannula 03/23 1600 97.7 58 20 110/0 96 Nasal 1.0L Cannula 03/23 1200 Nasal 1.0L Cannula 03/23 0841 69 119/47 Intake & Output 03/24 1600 03/24 0800 03/24 0000 Intake Total 120 1600 Output Total 65 100 Balance 55 1500 Intake, IV Intake, Oral 120 1600 Number 0 0 Bowel Movements Output, Urine 65 100 Physical Exam General Appearance: Alert, Cooperative, No Acute Distress Skin: No Rashes Skin Temp/Moisture Exam: Warm/Dry Sepsis Skin Exam (color): Normal for Ethnicity HEENT: Atraumatic, dry mucous membranes Neck: Supple, No JVD Cardiovascular: Regular Rate, Normal S1, Normal S2, 2/6 systolic murmur Lungs: Clear to Auscultation, Normal Air Movement Abdomen: Normal Bowel Sounds, Soft, No Tenderness Neurological: Normal Speech Extremities: No Clubbing, No Cyanosis, multiple toes amputations The site to femoral endarterectomy looks clean Current Medications: Current Medications Sig/Salome Start time Last Medication Dose Route Stop Time Status Admin Albuterol Sulfate See Dose Q4-6 PRN PRN 03/17 1945 AC Insts (1) INH Ascorbic Acid 500 MG DAILY 03/18 09 AC 03/23 PO 0841 Aspirin Buffered 81 MG QAM 03/18 09 AC 03/23 PO 0840 Budesonide/ 2 PUF BID 03/17 2100 AC 03/23 Formoterol Fumarate INH 2057 Carvedilol 6.25 MG BID 03/22 2100 AC 03/23 PO 0841 Clopidogrel Bisulfate 75 MG DAILY 03/20 09 AC 03/23 PO 0841 Cyanocobalamin 1,000 MCG DAILY 03/18 09 AC 03/23 PO 0841 Digoxin 0.125 MG 1700 03/18 1700 AC 03/20 PO 1611 Ezetimibe 10 MG DAILY 03/18 09 AC 03/23 PO 0842 Ferrous Sulfate 325 MG TID 03/17 2100 AC 03/23 PO 205 Glycerin 2 SPRAY Q2P PRN 03/23 0500 PO Heparin Sodium 5,000 UNIT Q8 03/22 2200 AC 03/24 (Porcine) SC 0528 Hydromorphone HCl 1 MG Q6 PRN 03/17 1945 AC 03/20 IV 1951 Insulin Aspart 0 TIDAC 03/22 1700 AC 03/23 SC 170 Insulin Detemir 4 UNITS QPM 03/22 2100 AC 03/23 SC 205 Levothyroxine Sodium 0.025 MG DAILY AC 03/18 07 AC 03/24 PO 0529 Morphine Sulfate 2 MG Q6P PRN 03/17 1945 DC 03/23 IV 0451 Omeprazole 40 MG DAILY AC 03/19 0837 AC 03/24 PO 0529 Oxycodone/ 2 TAB Q6P PRN 03/17 1945 AC 03/22 Acetaminophen PO 0415 Sertraline HCl 50 MG DAILY 03/18 09 AC 03/23 PO 0842 Silver Sulfadiazine 1 TULIO DAILY 03/24 09 [facility] Sodium Chloride 500 ML ONCE ONE 03/24 615 AC 03/24 IV 03/24 1614 0608 Dose Instructions: (1)Albuterol Sulfate: 1-2 PUF Last 24 Hrs of Lab/Sadi Results Last 24 Hrs of Labs/Mics: Laboratory Tests 03/24/18 0437: Anion Gap 11, Estimated GFR 30 L, Glucose 175 H, Calcium 8.7, Phosphorus 5.3 H, Magnesium 2.5 H, Total Bilirubin 0.6, AST 25, ALT 73 H, Albumin 2.5 L, CBC w Diff MAN DIFF ORDERED, RBC 2.99 L, MCV 92.0, MCH 29.1, MCHC 31.6 L, RDW 21.5 H, MPV 8.0, Gran % 88.2 H, Lymphocytes % 2.2 L, Monocytes % 9.2, Eosinophils % 0.4, Basophils % 0, Absolute Granulocytes 14.5 H, Segmented Neutrophils 91 H , Absolute Lymphocytes 0.4 L, Lymphocytes 3 L, Monocytes 5, Absolute Monocytes 1.5 H, Absolute Eosinophils 0.1, Basophils 1, Absolute Basophils 0, Platelet Estimate ADEQUATE, Polychromasia 1+, Hypochromic-Microcytic 1+, Poikilocytosis 1 +, Ovalocytes 1+, Fld Total RBCs Counted 100 Assessment/Plan Assessment: Mr. Almanzar is a 67-year-old male with PMH of aortic stenosis, CAD s/p CABG (2016), CHF (last Echo 03/20/2018 that showed anterior wall hypokinesis and normal diastolic part in and reduced ejection fraction of 20-30% significant decrease from previous echo 3 months ago, Hypertension, hyperlipidemia, NSTEMI, PVD, urinary incontinence, CKD, and chronic osteomyelities w/ toes amputation who presented to [facility] with complains of progressive worsening right lower leg pain. Patient was found to have significant blood supply compromise to the right leg with pain at rest and extensive right common artery disease extending into the profunda. Problem list 1. Severe stenosis in the proximal superficial femoral artery. 2. GRECIA on CKD 3. Transaminitis 4. Anemia 5. History of PVD 6. History of Hypertension, Hyperlipidemia On March 22 the patient was taken to the OR for common femoral artery endarterectomy and post procedure the patient was transferred to the intensive care unit for 24 hours observation. There was no significant decrease in H&H postprocedure. The patient required 4 units of blood transfusion prior to the procedure with the recommendation by game breeding farm manager to have had a H&H of 08/01 before procedure. His H&H has continued to remain stable post procedure. Heart failure with reduced ejection fraction Patient followed by game breeding farm manager Dr. English and also fixed income portfolio manager Dr. Botello. Recommended the patient to start Coreg 6.5 mg twice a day but this dose was not given yesterday because the patient was bradycardic with heart rate as low as 48. This patient had non-ST elevated myocardial infarction about 6 weeks ago which can explain his dramatic decrease in ejection fraction. According to the ejection fraction the patient requires AICD but its worth to wait a while to see if ejection fraction can rebound back to normal recommendation provided by Dr. Botello. We will not give the patient low dose and traced to because of his kidney disease. GRECIA on CKD Patient had a CK Do with Creatinine Increased to 2.3 from Baseline of around 1.8 -1.9. GRECIA had Resolved yesterday to baseline values but today the patient creatinine has increased to 2.2 it's reported that the patient has been anuric on a producing 50 mL of urine. There was hematuria noted on the Pace. Patient is being followed by council on aging director we will update council on aging director on this new developments. Because of the anuria he was given a bolus of normal saline 500 mL, patient has risk of fluid overload due to reduced ejection fraction. Diabetes mellitus Patient is on insulin sliding scale. Overnight blood sugars starting from yesterday morning were 110, 143, 192, 238, 238. We will continue with insulin subcutaneous and Accu-Cheks. Anemia Most likely due to chronic kidney disease stage III B. H&H has remained stable. Last transfusion just before procedure and postprocedure H&H hemorrhage is not unchanged. We'll continue to monitor H&H. Transaminitis Significant improvement ALT presentation 324 and today is 73. Patient atorvastatin was put on hold CPK rechecked on March 23 and was normal at 94. Continue to monitor liver functions. Problem List: 1. Peripheral vascular disease 2. Confusion 3. Renal insufficiency 4. Intractable pain 5. Diabetes mellitus Pain Ratin Pain Location: Right lower limb Pain Goal: Remain pain free Pain Plan: Roxicodone and Tylenol Tomorrow's Labs & Rationales: ICU bundle and CBC DVT/Prophylaxis: pharmacological Anoop Husain MD 03/24/18 1519: Attending Review Statement Attending Statement Attending MD Statement: examined this patient, discuss w/resident/PA/HAND MOLDER AND CASTER, agreed w/resident/PA/HAND MOLDER AND CASTER, reviewed EMR data (avail), reviewed images, amended to note Attending Assessment/Plan: The patient was seen and discussed with house staff. Appreciate Cardiology and Nephrology follow-up. CXR showing some interstitial edema and Lasix given x 1. Will follow renal function closely.
--- NOTE | 2018-03-24 07:28 | Transfer of Care Summary ---
Hospital Course Course Hospital Course: Mr. Almanzar is a 67-year-old male with PMH of aortic stenosis, CAD s/p CABG (2016), CHF (last Echo 03/20/2018) with LVEF of 20-30%.% with mid to distal anterior, anteroseptal and apical hypokinesis, hypertension, hyperlipidemia, NSTEMI, PVD, urinary incontinence, CKD, and chronic osteomyelities w/ toes amputation who presented to the ED with complains of progressive worsening right lower leg pain. Hospital Course: Patient stated that sometime last week he had pain in his left leg and he underwent a procedure on his left leg by his vascular doctor Dr Gage. Soon afterwards, the next day he started experiencing pain in his right leg. He was due to for a procedure on his right leg but due to the pain decided to come to the ED. In the ED he was found to have absent dorsalis pedis pulse with cool/dry and bluish discoloration of right foot. He was alert and oriented x3 in the ED. He was initially admitted in observation for pain management. A Doppler U/S performed showed probable occluded profunda femoral artery and severe stenosis in the proximal superficial femoral artery. He was evaluated by Vascular surgery the following day with recommendations of an endarderectomy of the right leg and podiatry evaluation. (Per records, a week ago when he had a left leg bypass graft, Dr Gage shot an angiogram of the right common femoral artery which showed significant distal common femoral disease extending into the profunda). In the meantime the patient was to be started on IV Heparin drip. Prior to the heparin, a HUBERT was found to be positive. GI was consulted with recommendations to continue the IV heparin if needed. The patient has had colonoscopy/EGD/ PillCam in the past with no conclusive results. His H&H was found to be low on the same day (03/18) and was transfused 1 unit pRBC and subsequently started on IV Heparin. Before the planned endarterectomy, the patient required cardiology clearance. He was evaluated by Dr English with recommendations to stop Atorvastatin, transfuse to an H/H of about 08/01 prior to surgery (for which he received additional two units) and an echocardiogram. He was taken to the OR on 03/22 for his procedure after which he was transferred to the ICU. While on the floor, the patient was mostly awake and alert with occasional spells where he appeared drowsy. He was, however, noted to be slow to answer. He is a poor historian. Below other issues are listed: GRECIA on CKD: The patient apparently runs a baseline Cr of baseline Cr 1.4-2.4. On admission his Cr was 2.3 and remained stable in the range. His Lasix was put on hold. Nephrology was consulted and his GRECIA is believed likely secondary to contrast administration. Recommnedations were made to hold diuretics, additional IVF and to obtain Renal U/S which showed unchanged cysts in bilateral kidneys. Transaminitis: His LFTs were found to be elevated on admission. Unclear why. They were monitored each day and found to be downtrending. Podiatry evaluation: The patient was found to have new onset bullous formation suggestive of early tissue necrosis. He was offered Betadine paint every other day as a wound care termination, and he refuses this. A dry sterile nonstick dressing was placed to be changed daily. An Xray was obtained to r/o chronic osteomyelitis and was negative. The patient is a very poor surgical candidate for podiatric surgical intervention, and deem him high risk for a major amputation. History of diabetes: On Insulin SS and Levemir 4units QPM Assessment/Plan: .
--- NOTE | 2018-03-24 09:31 | PN- Vascular Surgery ---
Subjective Subjective: feeling better, pain controlled, offers no complaints Objective Vital Signs and I&Os Vital Signs Date Time Temp Pulse Resp B/P B/P Pulse O2 O2 Flow FiO2 Mean Ox Delivery Rate 03/24 0400 99 Nasal 1.0L Cannula 03/24 0000 99 Nasal 1.0L Cannula 03/23 2300 97.5 54 18 100/40 96 Nasal 1.0L Cannula 03/23 2057 53 114/45 03/23 2000 100 Nasal 1.0L Cannula 03/23 1813 52 120/50 03/23 1600 Nasal 1.0L Cannula 03/23 1600 97.7 58 20 110/0 96 Nasal 1.0L Cannula 03/23 1200 Nasal 1.0L Cannula Intake & Output 03/24 1600 03/24 0800 03/24 0000 03/23 1600 03/23 0800 03/23 0000 Intake Total 120 1600 620 Output Total 65 100 190 200 250 Balance 55 1500 430 -200 -250 Intake, IV 20 Intake, Oral 120 1600 600 Number 0 0 Bowel Movements Output, Urine 65 100 190 200 250 Patient 169 lb Weight Physical Exam: gen- nad card- s1s2 pulm- +bs throughout ext- r groin without ecchymosis, soft, prevena dressing in place. brawny chronic skin changes bl le, no palp pulses, +PT signals bl. r foot and lower leg dressed - cdi. bl feet warm, nt. gross sensation/motor intact. Assessment/Plan Assessment/Plan A- POD2 sp r femoral endarterectomy, stable, with prevena neg pressure dressing in place. P- cont asa/plavix oob, ambulate foot care per podiatry medical care per primary team add: D/W Dr. Sanchez who changed r foot dressing. REC: daily dressing chnges per podiatry, asa/plavix daily. Prevena dressing to stay in place until 03/29. Call with any further questions.
--- NOTE | 2018-03-24 10:32 | Transfer of Care Summary ---
Hospital Course Course Hospital Course: This is a 67 years old gentleman with extensive past medical history as outlined in the previous transfer of care summary from the Team who was transferred to the intensive care unit post surgery after he had right femoral artery endarterectomy due to acute presentation with severe lower limb pain and found to have vascular compromise. This patient has chronic anemia due to multiple factors one of them being his chronic kidney disease. Post procedure the patient H&H has remained stable and he never received a transfusion while in the ICU. Lower limb pain He is status post femoral artery endarterectomy with significant improvement in pain and vascular supply of the right lower limb. Patient has been taking less of opiates the last time he received Dilaudid was March 20 and had just 1 dose of morphine on March 22. He is being followed by vascular surgeons. The plan was observation for 24 hours in the ICU and now 2 days post ICU transfer patient is being sent out as he does not require intense monitoring. He has a wound VAC in place and surgical team providing management for that. Heart failure with reduced ejection fraction Patient had significant decline in ejection fraction from around 45 to recorded EF of 20-30% from most recent echocardiogram on March 20. He was seen by television news photographer Dr. Botello who recommended patient to be started on carvedilol but upon initiation patient could not tolerate due to profound symptomatic bradycardia. We have held the carvedilol and per Dr. English should not be started. Patient is a candidate for AICD given ejection fraction less than 30 but this recent change in EF is a result of non-ST elevated myocardial infarction about 6 weeks ago and he probably has room for recovery of EF for which case Dr. Botello would like to wait, have a repeat echocardiogram as an outpatient and discuss with patient if he qualifies and would like to get an AICD. GRECIA on EKG Patient was admitted with creatinine of 2.[address] above his baseline of 1.8-1.9. On March 24 after his creatinine has returned to normal was found to be slightly elevated to 2.2. He is being followed by flocculator operator and we have done spot urine electrolytes and creatinine while starting the patient on gentle hydration with normal saline at 75 mL per hr. Continue to monitor for any fluid overload given this patient has very low ejection fraction and if at any point patient developed hypoxia or sign of overload consider gentle diuresis. This morning the patient appears dry and we think will benefit from gentle hydration. Continue to follow renal functions. Anemia Patient has multiple factors that can contribute to his anemia including his CKD. We did iron studies and patient was found to have low iron levels. He was already on iron supplementation upon arrival in the hospital. Patient should be discharged on his home iron supplementation medications. Complications: None Significant Procedures: right common femoral endarterectomy Pertinent Lab Results: Laboratory Tests 03/24 03/23 0437 0600 Chemistry Sodium (137 - 145 mmol/L) 144 Potassium (3.5 - 5.1 mmol/L) 4.8 Chloride (98 - 107 mmol/L) 111 H Carbon Dioxide (22 - 30 mmol/L) 22 Anion Gap (5 - 16) 11 BUN (9 - 20 mg/dL) 86 H Creatinine (0.7 - 1.2 mg/dL) 2.2 H Estimated GFR (>60 ml/min) 30 L Glucose (65 - 99 mg/dL) 175 H Calcium (8.4 - 10.2 mg/dL) 8.7 Phosphorus (2.5 - 4.5 mg/dL) 5.3 H Magnesium (1.6 - 2.3 mg/dL) 2.5 H Total Bilirubin (0.2 - 1.3 mg/dL) 0.6 AST (17 - 59 U/L) 25 ALT (21 - 72 U/L) 73 H Albumin (3.5 - 5.0 g/dL) 2.5 L Hematology CBC w Diff MAN DIFF ORDERED WBC (4.8 - 10.8 /CUMM) 16.4 H RBC (4.70 - 6.10 /CUMM) 2.99 L Hgb (14.0 - 18.0 G/DL) 8.7 L Hct (42 - 52 %) 27.5 L MCV (80.0 - 94.0 FL) 92.0 MCH (27.0 - 31.0 PG) 29.1 MCHC (33.0 - 37.0 G/DL) 31.6 L RDW (11.5 - 14.5 %) 21.5 H Plt Count (130 - 400 /CUMM) 140 MPV (7.4 - 10.4 FL) 8.0 Gran % (42.2 - 75.2 %) 88.2 H Lymphocytes % (20.5 - 51.1 %) 2.2 L Monocytes % (1.7 - 9.3 %) 9.2 Eosinophils % (0 - 5 %) 0.4 Basophils % (0.0 - 2.0 %) 0 Absolute Granulocytes (1.4 - 6.5 /CUMM) 14.5 H Segmented Neutrophils (42.2 - 75.2 %) 91 H Absolute Lymphocytes (1.2 - 3.4 /CUMM) 0.4 L Lymphocytes (20.5 - 51.1 %) 3 L Monocytes (1.7 - 9.3 %) 5 Absolute Monocytes (0.10 - 0.60 /CUMM) 1.5 H Absolute Eosinophils (0.0 - 0.7 /CUMM) 0.1 Basophils (0.0 - 2.0 %) 1 Absolute Basophils (0.0 - 0.2 /CUMM) 0 Platelet Estimate (ADEQUATE) ADEQUATE Polychromasia 1+ Hypochromic-Microcytic 1+ Poikilocytosis 1+ Ovalocytes 1+ Immunology Complement C3 Pending Complement C4 Pending Other Body Source Fld Total RBCs Counted (%) 100 03/23 03/22 0340 2300 Chemistry Sodium (137 - 145 mmol/L) 147 H 148 H Potassium (3.5 - 5.1 mmol/L) 5.1 5.1 Chloride (98 - 107 mmol/L) 115 H 116 H Carbon Dioxide (22 - 30 mmol/L) 19 L 19 L Anion Gap (5 - 16) 13 13 BUN (9 - 20 mg/dL) 74 H 72 H Creatinine (0.7 - 1.2 mg/dL) 1.9 H 1.8 H Estimated GFR (>60 ml/min) 36 L 38 L BUN/Creatinine Ratio (7 - 25 %) 40.0 H Glucose (65 - 99 mg/dL) 95 Calcium (8.4 - 10.2 mg/dL) 8.7 Phosphorus (2.5 - 4.5 mg/dL) 5.9 H Magnesium (1.6 - 2.3 mg/dL) 2.3 Total Bilirubin (0.2 - 1.3 mg/dL) 0.8 AST (17 - 59 U/L) 26 ALT (21 - 72 U/L) 99 H Creatine Kinase (55 - 170 U/L) 98 Albumin (3.5 - 5.0 g/dL) 2.5 L Hematology CBC w Diff NO MAN DIFF REQ NO MAN DIFF REQ WBC (4.8 - 10.8 /CUMM) 15.0 H 14.9 H RBC (4.70 - 6.10 /CUMM) 3.02 L 3.17 L Hgb (14.0 - 18.0 G/DL) 8.9 L 9.1 L Hct (42 - 52 %) 27.7 L 28.8 L MCV (80.0 - 94.0 FL) 92.0 90.9 MCH (27.0 - 31.0 PG) 29.3 28.7 MCHC (33.0 - 37.0 G/DL) 31.9 L 31.6 L RDW (11.5 - 14.5 %) 21.5 H 20.7 H Plt Count (130 - 400 /CUMM) 138 156 MPV (7.4 - 10.4 FL) 7.6 7.3 L Gran % (42.2 - 75.2 %) 88.7 H 88.8 H Lymphocytes % (20.5 - 51.1 %) 2.1 L 1.9 L Monocytes % (1.7 - 9.3 %) 9.1 9.2 Eosinophils % (0 - 5 %) 0.1 0.1 Basophils % (0.0 - 2.0 %) 0 0 Absolute Granulocytes (1.4 - 6.5 /CUMM) 13.3 H 13.2 H Absolute Lymphocytes (1.2 - 3.4 /CUMM) 0.3 L 0.3 L Absolute Monocytes (0.10 - 0.60 /CUMM) 1.4 H 1.4 H Absolute Eosinophils (0.0 - 0.7 /CUMM) 0 0 Absolute Basophils (0.0 - 0.2 /CUMM) 0 0 18 03/22 1630 1445 Coagulation APTT Cancelled Hematology CBC w Diff NO MAN DIFF REQ WBC (4.8 - 10.8 /CUMM) 13.1 H RBC (4.70 - 6.10 /CUMM) 3.28 L Hgb (14.0 - 18.0 G/DL) 9.7 L Hct (42 - 52 %) 29.4 L MCV (80.0 - 94.0 FL) 89.8 MCH (27.0 - 31.0 PG) 29.6 MCHC (33.0 - 37.0 G/DL) 33.0 RDW (11.5 - 14.5 %) 20.0 H Plt Count (130 - 400 /CUMM) 143 MPV (7.4 - 10.4 FL) 7.5 Gran % (42.2 - 75.2 %) 79.9 H Lymphocytes % (20.5 - 51.1 %) 7.7 L Monocytes % (1.7 - 9.3 %) 11.3 H Eosinophils % (0 - 5 %) 1.0 Basophils % (0.0 - 2.0 %) 0.1 Absolute Granulocytes (1.4 - 6.5 /CUMM) 10.5 H Absolute Lymphocytes (1.2 - 3.4 /CUMM) 1.0 L Absolute Monocytes (0.10 - 0.60 /CUMM) 1.5 H Absolute Eosinophils (0.0 - 0.7 /CUMM) 0.1 Absolute Basophils (0.0 - 0.2 /CUMM) 0 Assessment/Plan: Detailed in the hospital course section
--- NOTE | 2018-03-24 11:03 | PN- Nephrology ---
Assessment/Plan Nephrology Assessment: GRECIA - had improved back to baseline - likely 2/2 contrast prior to admission. Now going up again - ddx includes pre-renal azotemia (although given crackles on exam, would get chest x-ray prior to increasing IVF), contrast induced nephropathy (can occur 48-72hrs after contrast which was given during endarterectomy), and/or mild ATN from perioperative hypotensive insult. Stage III CKD - baseline SCr in mid to high 1's - variably proteinuric - likely 2/2 hypertensive nephrosclerosis, chronic cardiorenal syndrome, and vascular disease. Anemia - Out of proportion to kidney disease. Has received 4U PRBC. Stool is guaic positive - GI following. I would check ferritin, iron stores, Vit B12, Folate, and retic count (had been increased before). Hypernatremia - Likely reflective of decreased free water intake - improving. PVD - s/p common femoral endarterectomy. Suggestion: -Chest x-ray -Increase IVF if no evidence of pulm edema; will need to hold IVF if pulm edema present -Hold diuretics pending chest x-ray -OK to allow free water to thirst for now but would maybe limit at 2L/day for now -Check ferritin, iron stores, Vit B12, Folate, and retic count (had been increased before). Please call [phone] with ?'s Subjective Subjective: SCr 2.2 More awake Feels dry Breathing OK Objective Vital Signs and I&Os Vital Signs Date Time Temp Pulse Resp B/P B/P Pulse O2 O2 Flow FiO2 Mean Ox Delivery Rate 03/24 0400 99 Nasal 1.0L Cannula 03/24 0000 99 Nasal 1.0L Cannula 03/23 2300 97.5 54 18 100/40 96 Nasal 1.0L Cannula 03/237 53 114/45 03/23 2000 100 Nasal 1.0L Cannula 03/23 1813 52 120/50 03/23 1600 Nasal 1.0L Cannula 03/23 1600 97.7 58 20 110/0 96 Nasal 1.0L Cannula 03/23 1200 Nasal 1.0L Cannula Intake & Output 03/24 1600 03/24 0400 03/23 1600 03/23 0400 03/22 1600 03/22 0400 Intake Total 120 1600 620 30 100 Output Total 65 100 390 250 900 600 Balance 55 1500 230 -250 -870 -500 Intake, IV 20 Intake, Oral 120 1600 600 30 100 Number 0 0 Bowel Movements Output, Urine 65 100 390 250 900 600 Patient 169 lb 170 lb Weight Weight Bed scale Measurement Method Physical Exam: Gen - chronically ill appearing HEENT - dry mouth, JVP up CV - RRR, no m/r/g Chest - bibasilar crackles Abd - soft, NTND Ext - no edema, wrinkles present, s/p multiple toe amputations Neuro - drowsy but more alert, oriented Current Medications: Current Medications Sig/Salome Start time Last Medication Dose Route Stop Time Status Admin Albuterol Sulfate See Dose Q4-6 PRN PRN 03/17 1945 AC Insts (1) INH Ascorbic Acid 500 MG DAILY 03/18 09 AC 03/24 PO 0900 Aspirin Buffered 81 MG QAM 03/18 09 AC 03/24 PO 0900 Budesonide/ 2 PUF BID 03/17 2100 AC 03/23 Formoterol Fumarate INH 205 Carvedilol 6.25 MG BID 03/22 2100 DC 03/23 PO 0841 Clopidogrel Bisulfate 75 MG DAILY 03/20 0900 AC 03/24 PO 0900 Cyanocobalamin 1,000 MCG DAILY 03/18 0900 AC 03/24 PO 0900 Digoxin 0.125 MG 1700 03/18 1700 AC 03/20 PO 1611 Ezetimibe 10 MG DAILY 03/18 0900 AC 03/24 PO 0900 Ferrous Sulfate 325 MG TID 03/17 2100 AC 03/24 PO 0900 Glycerin 2 SPRAY Q2P PRN 03/23 0500 AC PO Heparin Sodium 5,000 UNIT Q8 03/22 2200 AC 03/24 (Porcine) SC 0528 Hydromorphone HCl 1 MG Q6 PRN 03/17 1945 AC 03/20 IV 1951 Insulin Aspart 0 TIDAC 03/22 1700 AC 03/24 SC 0800 Insulin Detemir 4 UNITS QPM 03/22 2100 AC 03/23 SC 2056 Levothyroxine Sodium 0.025 MG DAILY AC 03/18 0700 AC 03/24 PO 05 Omeprazole 40 MG DAILY AC 03/19 0837 AC 03/24 PO 0529 Oxycodone/ 2 TAB Q6P PRN 03/17 1945 AC 03/22 Acetaminophen PO 0415 Sertraline HCl 50 MG DAILY 06/14 0900 AC 03/24 PO 0900 Silver Sulfadiazine 1 TULIO DAILY 03/24 0900 AC 03/24 TOP 0900 Sodium Chloride 1,000 ML Q13H 03/24 1015 AC 03/24 IV 03/24 2314 1046 Sodium Chloride 500 ML ONCE ONE 03/24 0615 DC 03/24 IV 03/24 1614 0608 Dose Instructions: (1)Albuterol Sulfate: 1-2 PUF Results Pertinent Lab Results: Laboratory Tests 03/24 03/24 03/23 UNK 0437 0600 Chemistry Sodium (137 - 145 mmol/L) 144 Potassium (3.5 - 5.1 mmol/L) 4.8 Chloride (98 - 107 mmol/L) 111 H Carbon Dioxide (22 - 30 mmol/L) 22 Anion Gap (5 - 16) 11 BUN (9 - 20 mg/dL) 86 H Creatinine (0.7 - 1.2 mg/dL) 2.2 H Estimated GFR (>60 ml/min) 30 L Glucose (65 - 99 mg/dL) 175 H Calcium (8.4 - 10.2 mg/dL) 8.7 Phosphorus (2.5 - 4.5 mg/dL) 5.3 H Magnesium (1.6 - 2.3 mg/dL) 2.5 H Total Bilirubin (0.2 - 1.3 mg/dL) 0.6 AST (17 - 59 U/L) 25 ALT (21 - 72 U/L) 73 H Albumin (3.5 - 5.0 g/dL) 2.5 L Hematology CBC w Diff MAN DIFF ORDERED WBC (4.8 - 10.8 /CUMM) 16.4 H RBC (4.70 - 6.10 /CUMM) 2.99 L Hgb (14.0 - 18.0 G/DL) 8.7 L Hct (42 - 52 %) 27.5 L MCV (80.0 - 94.0 FL) 92.0 MCH (27.0 - 31.0 PG) 29.1 MCHC (33.0 - 37.0 G/DL) 31.6 L RDW (11.5 - 14.5 %) 21.5 H Plt Count (130 - 400 /CUMM) 140 MPV (7.4 - 10.4 FL) 8.0 Gran % (42.2 - 75.2 %) 88.2 H Lymphocytes % (20.5 - 51.1 %) 2.2 L Monocytes % (1.7 - 9.3 %) 9.2 Eosinophils % (0 - 5 %) 0.4 Basophils % (0.0 - 2.0 %) 0 Absolute Granulocytes (1.4 - 6.5 /CUMM) 14.5 H Segmented Neutrophils (42.2 - 75.2 %) 91 H Absolute Lymphocytes (1.2 - 3.4 /CUMM) 0.4 L Lymphocytes (20.5 - 51.1 %) 3 L Monocytes (1.7 - 9.3 %) 5 Absolute Monocytes (0.10 - 0.60 /CUMM) 1.5 H Absolute Eosinophils (0.0 - 0.7 /CUMM) 0.1 Basophils (0.0 - 2.0 %) 1 Absolute Basophils (0.0 - 0.2 /CUMM) 0 Platelet Estimate (ADEQUATE) ADEQUATE Polychromasia 1+ Hypochromic-Microcytic 1+ Poikilocytosis 1+ Ovalocytes 1+ Immunology Complement C3 Pending Complement C4 Pending Other Body Source Fld Total RBCs Counted (%) 100 Urines Urine Osmolality Pending Ur Random Creatinine Pending Ur Random Sodium Pending Ur Random Potassium Pending Fraction Sodium Excret Pending 03/23 03/22 0340 2300 Chemistry Sodium (137 - 145 mmol/L) 147 H 148 H Potassium (3.5 - 5.1 mmol/L) 5.1 5.1 Chloride (98 - 107 mmol/L) 115 H 116 H Carbon Dioxide (22 - 30 mmol/L) 19 L 19 L Anion Gap (5 - 16) 13 13 BUN (9 - 20 mg/dL) 74 H 72 H Creatinine (0.7 - 1.2 mg/dL) 1.9 H 1.8 H Estimated GFR (>60 ml/min) 36 L 38 L BUN/Creatinine Ratio (7 - 25 %) 40.0 H Glucose (65 - 99 mg/dL) 95 Calcium (8.4 - 10.2 mg/dL) 8.7 Phosphorus (2.5 - 4.5 mg/dL) 5.9 H Magnesium (1.6 - 2.3 mg/dL) 2.3 Total Bilirubin (0.2 - 1.3 mg/dL) 0.8 AST (17 - 59 U/L) 26 ALT (21 - 72 U/L) 99 H Creatine Kinase (55 - 170 U/L) 98 Albumin (3.5 - 5.0 g/dL) 2.5 L Hematology CBC w Diff NO MAN DIFF REQ NO MAN DIFF REQ WBC (4.8 - 10.8 /CUMM) 15.0 H 14.9 H RBC (4.70 - 6.10 /CUMM) 3.02 L 3.17 L Hgb (14.0 - 18.0 G/DL) 8.9 L 9.1 L Hct (42 - 52 %) 27.7 L 28.8 L MCV (80.0 - 94.0 FL) 92.0 90.9 MCH (27.0 - 31.0 PG) 29.3 28.7 MCHC (33.0 - 37.0 G/DL) 31.9 L 31.6 L RDW (11.5 - 14.5 %) 21.5 H 20.7 H Plt Count (130 - 400 /CUMM) 138 156 MPV (7.4 - 10.4 FL) 7.6 7.3 L Gran % (42.2 - 75.2 %) 88.7 H 88.8 H Lymphocytes % (20.5 - 51.1 %) 2.1 L 1.9 L Monocytes % (1.7 - 9.3 %) 9.1 9.2 Eosinophils % (0 - 5 %) 0.1 0.1 Basophils % (0.0 - 2.0 %) 0 0 Absolute Granulocytes (1.4 - 6.5 /CUMM) 13.3 H 13.2 H Absolute Lymphocytes (1.2 - 3.4 /CUMM) 0.3 L 0.3 L Absolute Monocytes (0.10 - 0.60 /CUMM) 1.4 H 1.4 H Absolute Eosinophils (0.0 - 0.7 /CUMM) 0 0 Absolute Basophils (0.0 - 0.2 /CUMM) 0 0 03/22 03/22 1630 1445 Coagulation APTT Cancelled Hematology CBC w Diff NO MAN DIFF REQ WBC (4.8 - 10.8 /CUMM) 13.1 H RBC (4.70 - 6.10 /CUMM) 3.28 L Hgb (14.0 - 18.0 G/DL) 9.7 L Hct (42 - 52 %) 29.4 L MCV (80.0 - 94.0 FL) 89.8 MCH (27.0 - 31.0 PG) 29.6 MCHC (33.0 - 37.0 G/DL) 33.0 RDW (11.5 - 14.5 %) 20.0 H Plt Count (130 - 400 /CUMM) 143 MPV (7.4 - 10.4 FL) 7.5 Gran % (42.2 - 75.2 %) 79.9 H Lymphocytes % (20.5 - 51.1 %) 7.7 L Monocytes % (1.7 - 9.3 %) 11.3 H Eosinophils % (0 - 5 %) 1.0 Basophils % (0.0 - 2.0 %) 0.1 Absolute Granulocytes (1.4 - 6.5 /CUMM) 10.5 H Absolute Lymphocytes (1.2 - 3.4 /CUMM) 1.0 L Absolute Monocytes (0.10 - 0.60 /CUMM) 1.5 H Absolute Eosinophils (0.0 - 0.7 /CUMM) 0.1 Absolute Basophils (0.0 - 0.2 /CUMM) 0 03/22 03/22 03/21 0705 0420 1632 Chemistry Sodium (137 - 145 mmol/L) 145 Potassium (3.5 - 5.1 mmol/L) 4.5 Chloride (98 - 107 mmol/L) 115 H Carbon Dioxide (22 - 30 mmol/L) 19 L Anion Gap (5 - 16) 11 BUN (9 - 20 mg/dL) 73 H Creatinine (0.7 - 1.2 mg/dL) 1.5 H Estimated GFR (>60 ml/min) 47 L BUN/Creatinine Ratio (7 - 25 %) 48.7 H Total Bilirubin (0.2 - 1.3 mg/dL) 1.1 Direct Bilirubin (< 0.4 mg/dL) 0.6 H AST (17 - 59 U/L) 32 ALT (21 - 72 U/L) 118 H Alkaline Phosphatase (< 127 U/L) 81 Total Protein (6.3 - 8.2 g/dL) 6.7 Albumin (3.5 - 5.0 g/dL) 2.6 L Coagulation APTT (25 - 37 SEC) 70 H 88 H Hematology CBC w Diff MAN DIFF ORDERED WBC (4.8 - 10.8 /CUMM) 12.0 H RBC (4.70 - 6.10 /CUMM) 3.12 L Hgb (14.0 - 18.0 G/DL) 9.2 L Hct (42 - 52 %) 27.7 L MCV (80.0 - 94.0 FL) 88.8 MCH (27.0 - 31.0 PG) 29.4 MCHC (33.0 - 37.0 G/DL) 33.2 RDW (11.5 - 14.5 %) 20.3 H Plt Count (130 - 400 /CUMM) 144 MPV (7.4 - 10.4 FL) 8.0 Gran % (42.2 - 75.2 %) 84.7 H Lymphocytes % (20.5 - 51.1 %) 4.1 L Monocytes % (1.7 - 9.3 %) 10.6 H Eosinophils % (0 - 5 %) 0.6 Basophils % (0.0 - 2.0 %) 0 Absolute Granulocytes (1.4 - 6.5 /CUMM) 10.2 H Absolute Lymphocytes (1.2 - 3.4 /CUMM) 0.5 L Absolute Monocytes (0.10 - 0.60 /CUMM) 1.3 H Absolute Eosinophils (0.0 - 0.7 /CUMM) 0.1 Absolute Basophils (0.0 - 0.2 /CUMM) 0 Platelet Estimate (ADEQUATE) VERIFIED BY SMEAR Polychromasia 1+ Anisocytosis 1+ Imaging/Other Studies: EXAM TYPE: US - US-RENAL/KIDNEY EXAMINATION: US RETROPERITONEAL COMPLETE (RENAL) CLINICAL INFORMATION: Hypertensive nephrosclerosis. COMPARISON: Prior ultrasound of the kidneys and bladder November 2017 TECHNIQUE: Real-time imaging of the kidneys and bladder. FINDINGS: RIGHT KIDNEY: Right kidney measures 10.8 x 5.3 x 5.5 cm. There is a 2 cm cyst in the midpole and 7 mm cyst in lower pole. There is a 3 mm nonobstructing stone in the midpole. LEFT KIDNEY: The kidney measures 12.6 x 5.6 x 4.7 cm. There are 3 cysts present largest measuring 5 cm in the upper pole overall unchanged BLADDER: Well-distended and normal. Bilateral ureteral jets are demonstrated. Prevoid bladder volume is 8.8 mL. IMPRESSION: Cysts in both kidneys unchanged. Nonobstructing stone midpole right kidney unchanged. Otherwise unremarkable. TTE CONCLUSIONS 1. Moderate to severely decreased EF of 20-30% with regional wall motion abnormalities as described above. 2. Moderate left atrial enlargement. 3. Moderate mitral regurgitation. 4. Moderate tricuspid regurgitation.
--- NOTE | 2018-03-24 11:46 | RADIOLOGY REPORT ---
EXAMINATION: XR PORTABLE CHEST CLINICAL INFORMATION: Low ejection fraction. Evaluate for fluid overload. COMPARISON: Chest radiograph 02/15/2018. TECHNIQUE: Portable frontal view of the chest was obtained. FINDINGS: The cardiac silhouette is grossly enlarged but unchanged from prior imaging. Upper mediastinal contours are normal. Pleural effusions appear to have slightly increased from prior imaging and there is an ill-defined opacity within the right lower lobe. Bilateral basilar congestion and mild interstitial edema involving both lungs. No acute osseous finding. Chronic changes of a right rotator cuff repair are noted and there is a distal clavicular erosion. No acute osseous finding. IMPRESSION: There is cardiomegaly, hilar vascular congestion, and interstitial edema. Small pleural effusions appear to have slightly increased in size and there is new airspace disease within the right lower lobe. Findings are consistent with congestive heart failure.
--- NOTE | 2018-03-24 13:54 | PN- Vascular Surgery ---
Surgical Brief Attending Note Brief Attending Note: pt seen and examined. planned discussed with pa. s/p right common femoral endarterectomy for ischemic rest pain with foot wound. foot is now warm with good cap refill and strong pt signal. needs wound care with podiatry. will follow closely. if foot woresening/not healing may need bypass. continue asa/ plavix. pravena to be removed next thursday.
--- NOTE | 2018-03-24 14:03 | PN- Podiatry ---
Subjective Subjective: Patient was seen and evaluated at bedside in the intensive care unit, postoperative day 2 right lower extremity revascularization. The patient appears to be more alert than yesterday, is in no apparent distress, afebrile, with vital signs stable. Review of Systems: A 14 point review of systems was performed, and was found to be negative apart from the patient's complaints described above in the history of present illness. Objective Vital Signs and I&Os Vital Signs Date Time Temp Pulse Resp B/P B/P Pulse O2 O2 Flow FiO2 Mean Ox Delivery Rate 03/24 0800 97 Nasal 1.0L Cannula 03/24 0400 99 Nasal 1.0L Cannula 03/24 0000 99 Nasal 1.0L Cannula 03/23 2300 97.5 54 18 100/40 96 Nasal 1.0L Cannula 03/23 2057 53 114/45 03/23 2000 100 Nasal 1.0L Cannula 03/23 1813 52 120/50 03/23 1600 Nasal 1.0L Cannula 03/23 1600 97.7 58 20 110/0 96 Nasal 1.0L Cannula Intake & Output 03/24 1600 03/24 0800 03/24 0000 03/23 1600 03/23 0800 03/23 0000 Intake Total 120 1600 620 Output Total 65 100 190 200 250 Balance 55 1500 430 -200 -250 Intake, IV 20 Intake, Oral 120 1600 600 Number 0 0 Bowel Movements Output, Urine 65 100 190 200 250 Patient 169 lb Weight Physical Exam: Patient continues to have nonpalpable pedal pulses, and his temperature gradient on the right lower extremity continues to normalize, the distal right leg and foot are now warm relative to previously having been cold. The bullous changes on the dorsal aspect of the foot continued to remain epidermal only. Compared to yesterday there is less serous drainage. The remaining dermis is all intact. The bulla totals 10 cm anterior to posterior and 8 cm medial to lateral. He has other small bullous changes in the leg, but these are dry and already epithelializing over. Current Medications: Current Medications Sig/Salome Start time Last Medication Dose Route Stop Time Status Admin Albuterol Sulfate See Dose Q4-6 PRN PRN 03/17 1945 AC Insts (1) INH Ascorbic Acid 500 MG DAILY 03/18 900 AC 03/24 PO 899 Aspirin Buffered 81 MG QAM 03/18 900 AC 03/24 PO 0900 Budesonide/ 2 PUF BID 03/17 2100 AC 03/23 Formoterol Fumarate INH 2057 Carvedilol 6.25 MG BID 03/22 2100 DC 03/23 PO 0841 Clopidogrel Bisulfate 75 MG DAILY 03/20 0900 AC 03/24 PO 0900 Cyanocobalamin 1,000 MCG DAILY 03/18 0900 AC 03/24 PO 0900 Digoxin 0.125 MG 1700 03/18 1700 AC 03/20 PO 1611 Ezetimibe 10 MG DAILY 03/18 0900 AC 03/24 PO 0900 Ferrous Sulfate 325 MG TID 03/17 2100 AC 03/24 PO 1321 Furosemide 40 MG ONE ONE 03/24 1330 DC 03/24 PO 03/24 1331 1331 Glycerin 2 SPRAY Q2P PRN 03/23 0500 AC PO Heparin Sodium 5,000 UNIT Q8 03/22 2200 AC 03/24 (Porcine) SC 1332 Hydromorphone HCl 1 MG Q6 PRN 03/17 1945 AC 03/20 IV 1951 Insulin Aspart 0 TIDAC 03/22 1700 AC 03/24 SC 1200 Insulin Detemir 4 UNITS QPM 03/22 2100 AC 03/23 SC 2056 Levothyroxine Sodium 0.025 MG DAILY AC 03/18 0700 AC 03/24 PO 0529 Omeprazole 40 MG DAILY AC 03/19 0837 AC 03/24 PO 0529 Oxycodone/ 2 TAB Q6P PRN 03/17 194 AC 03/22 Acetaminophen PO 0415 Sertraline HCl 50 MG DAILY 03/18 0900 AC 03/24 PO 0900 Silver Sulfadiazine 1 TULIO DAILY 03/24 0900 AC 03/24 TOP 0900 Sodium Chloride 1,000 ML Q13H 03/24 1015 DC 03/24 IV 03/24 2314 1046 Sodium Chloride 500 ML ONCE ONE 03/24 0615 DC 03/24 IV 03/24 1614 0608 Dose Instructions: (1)Albuterol Sulfate: 1-2 PUF Results Last 48 Hours of Labs: Laboratory Tests 03/24 03/24 03/23 UNK 0437 0600 Chemistry Sodium (137 - 145 mmol/L) 144 Potassium (3.5 - 5.1 mmol/L) 4.8 Chloride (98 - 107 mmol/L) 111 H Carbon Dioxide (22 - 30 mmol/L) 22 Anion Gap (5 - 16) 11 BUN (9 - 20 mg/dL) 86 H Creatinine (0.7 - 1.2 mg/dL) 2.2 H Estimated GFR (>60 ml/min) 30 L Glucose (65 - 99 mg/dL) 175 H Calcium (8.4 - 10.2 mg/dL) 8.7 Phosphorus (2.5 - 4.5 mg/dL) 5.3 H Magnesium (1.6 - 2.3 mg/dL) 2.5 H Total Bilirubin (0.2 - 1.3 mg/dL) 0.6 AST (17 - 59 U/L) 25 ALT (21 - 72 U/L) 73 H Albumin (3.5 - 5.0 g/dL) 2.5 L Hematology CBC w Diff MAN DIFF ORDERED WBC (4.8 - 10.8 /CUMM) 16.4 H RBC (4.70 - 6.10 /CUMM) 2.99 L Hgb (14.0 - 18.0 G/DL) 8.7 L Hct (42 - 52 %) 27.5 L MCV (80.0 - 94.0 FL) 92.0 MCH (27.0 - 31.0 PG) 29.1 MCHC (33.0 - 37.0 G/DL) 31.6 L RDW (11.5 - 14.5 %) 21.5 H Plt Count (130 - 400 /CUMM) 140 MPV (7.4 - 10.4 FL) 8.0 Gran % (42.2 - 75.2 %) 88.2 H Lymphocytes % (20.5 - 51.1 %) 2.2 L Monocytes % (1.7 - 9.3 %) 9.2 Eosinophils % (0 - 5 %) 0.4 Basophils % (0.0 - 2.0 %) 0 Absolute Granulocytes (1.4 - 6.5 /CUMM) 14.5 H Segmented Neutrophils (42.2 - 75.2 %) 91 H Absolute Lymphocytes (1.2 - 3.4 /CUMM) 0.4 L Lymphocytes (20.5 - 51.1 %) 3 L Monocytes (1.7 - 9.3 %) 5 Absolute Monocytes (0.10 - 0.60 /CUMM) 1.5 H Absolute Eosinophils (0.0 - 0.7 /CUMM) 0.1 Basophils (0.0 - 2.0 %) 1 Absolute Basophils (0.0 - 0.2 /CUMM) 0 Platelet Estimate (ADEQUATE) ADEQUATE Polychromasia 1+ Hypochromic-Microcytic 1+ Poikilocytosis 1+ Ovalocytes 1+ Immunology Complement C3 Pending Complement C4 Pending Other Body Source Fld Total RBCs Counted (%) 100 Urines Urine Osmolality (300 - 1000 MOSM/KG) 384 Ur Random Creatinine (mg/dL) 220.3 Ur Random Sodium (30 - 90 mmol/L) 7 L Ur Random Potassium (mmol/L) 28.8 Fraction Sodium Excret (<1% %) 0.0 03/23 03/22 0340 2300 Chemistry Sodium (137 - 145 mmol/L) 147 H 148 H Potassium (3.5 - 5.1 mmol/L) 5.1 5.1 Chloride (98 - 107 mmol/L) 115 H 116 H Carbon Dioxide (22 - 30 mmol/L) 19 L 19 L Anion Gap (5 - 16) 13 13 BUN (9 - 20 mg/dL) 74 H 72 H Creatinine (0.7 - 1.2 mg/dL) 1.9 H 1.8 H Estimated GFR (>60 ml/min) 36 L 38 L BUN/Creatinine Ratio (7 - 25 %) 40.0 H Glucose (65 - 99 mg/dL) 95 Calcium (8.4 - 10.2 mg/dL) 8.7 Phosphorus (2.5 - 4.5 mg/dL) 5.9 H Magnesium (1.6 - 2.3 mg/dL) 2.3 Total Bilirubin (0.2 - 1.3 mg/dL) 0.8 AST (17 - 59 U/L) 26 ALT (21 - 72 U/L) 99 H Creatine Kinase (55 - 170 U/L) 98 Albumin (3.5 - 5.0 g/dL) 2.5 L Hematology CBC w Diff NO MAN DIFF REQ NO MAN DIFF REQ WBC (4.8 - 10.8 /CUMM) 15.0 H 14.9 H RBC (4.70 - 6.10 /CUMM) 3.02 L 3.17 L Hgb (14.0 - 18.0 G/DL) 8.9 L 9.1 L Hct (42 - 52 %) 27.7 L 28.8 L MCV (80.0 - 94.0 FL) 92.0 90.9 MCH (27.0 - 31.0 PG) 29.3 28.7 MCHC (33.0 - 37.0 G/DL) 31.9 L 31.6 L RDW (11.5 - 14.5 %) 21.5 H 20.7 H Plt Count (130 - 400 /CUMM) 138 156 MPV (7.4 - 10.4 FL) 7.6 7.3 L Gran % (42.2 - 75.2 %) 88.7 H 88.8 H Lymphocytes % (20.5 - 51.1 %) 2.1 L 1.9 L Monocytes % (1.7 - 9.3 %) 9.1 9.2 Eosinophils % (0 - 5 %) 0.1 0.1 Basophils % (0.0 - 2.0 %) 0 0 Absolute Granulocytes (1.4 - 6.5 /CUMM) 13.3 H 13.2 H Absolute Lymphocytes (1.2 - 3.4 /CUMM) 0.3 L 0.3 L Absolute Monocytes (0.10 - 0.60 /CUMM) 1.4 H 1.4 H Absolute Eosinophils (0.0 - 0.7 /CUMM) 0 0 Absolute Basophils (0.0 - 0.2 /CUMM) 0 0 03/22 03/22 1630 1445 Coagulation APTT Cancelled Hematology CBC w Diff NO MAN DIFF REQ WBC (4.8 - 10.8 /CUMM) 13.1 H RBC (4.70 - 6.10 /CUMM) 3.28 L Hgb (14.0 - 18.0 G/DL) 9.7 L Hct (42 - 52 %) 29.4 L MCV (80.0 - 94.0 FL) 89.8 MCH (27.0 - 31.0 PG) 29.6 MCHC (33.0 - 37.0 G/DL) 33.0 RDW (11.5 - 14.5 %) 20.0 H Plt Count (130 - 400 /CUMM) 143 MPV (7.4 - 10.4 FL) 7.5 Gran % (42.2 - 75.2 %) 79.9 H Lymphocytes % (20.5 - 51.1 %) 7.7 L Monocytes % (1.7 - 9.3 %) 11.3 H Eosinophils % (0 - 5 %) 1.0 Basophils % (0.0 - 2.0 %) 0.1 Absolute Granulocytes (1.4 - 6.5 /CUMM) 10.5 H Absolute Lymphocytes (1.2 - 3.4 /CUMM) 1.0 L Absolute Monocytes (0.10 - 0.60 /CUMM) 1.5 H Absolute Eosinophils (0.0 - 0.7 /CUMM) 0.1 Absolute Basophils (0.0 - 0.2 /CUMM) 0 Assessment/Plan Assessment/Plan 67-year-old male with stabilizing superficial tissue loss secondary to end-stage peripheral arterial disease status post right lower extremity revascularization Patient is seen and evaluated at bedside in the intensive care unit Continue Silvadene dressings to the right foot Continue weightbearing as tolerated in a flat surgical shoe to the bathroom back as needed and for out of bed to chair activities. We'll follow-up daily Problem List: 1. Peripheral vascular disease Core Measures Venous Thromboembolism VTE Risk Factors Age>40 No Mechanical VTE Prophylaxis d/t N/A MechProphylax Ordered No VTE Pharm Prophylaxis d/t NA PharmProphylax ordered
--- NOTE | 2018-03-24 14:20 | PN- Cardiology ---
Subjective Subjective: * No chest discomfort, leg discomfort, shortness of breath or lightheadedness. * sinus bradycardia with BBB * creatinine has risen to 2.2 * increased WBC count Objective Vital Signs and I&Os Vital Signs Date Time Temp Pulse Resp B/P B/P Pulse O2 O2 Flow FiO2 Mean Ox Delivery Rate 03/24 0800 97 Nasal 1.0L Cannula 03/24 0400 99 Nasal 1.0L Cannula 03/24 0000 99 Nasal 1.0L Cannula 03/23 2300 97.5 54 18 100/40 96 Nasal 1.0L Cannula 03/23 2057 53 114/45 03/23 2000 100 Nasal 1.0L Cannula 03/23 1813 52 120/50 03/23 1600 Nasal 1.0L Cannula 03/23 1600 97.7 58 20 110/0 96 Nasal 1.0L Cannula Intake & Output 03/24 1600 03/24 0800 03/24 0000 03/23 1600 03/23 0800 03/23 0000 Intake Total 120 1600 620 Output Total 65 100 190 200 250 Balance 55 1500 430 -200 -250 Intake, IV 20 Intake, Oral 120 1600 600 Number 0 0 Bowel Movements Output, Urine 65 100 190 200 250 Patient 169 lb Weight Physical Exam: General: WD/WN male in NAD; lethargic and confused HEENT: NC/AT, PERRL, EOMI Neck: no JVD, no carotid bruit Heart: RRR with 2/6 systolic murmur Lungs: clear bilaterally Abdomen: soft, NT, +ve bowel sounds Extremities: 1+ left leg edema with right leg bandaged, venous stasis changes bilaterally, toe amputations bilaterally Assessment/Plan Assessment/Plan * This patient has had a NSTEMI within the past six weeks. He also has renal insufficiency and hepatic insufficiency. As such, his surgical risk was increased but he nevertheless appears to be doing well following a right common femoral endarterectomy. * This patient may have anemia due to renal insuffciency however a prior workup disclosed an increased reticulocyte count instead of a low retic count that goes along better with bleeding than decreased production. Guaiac all stools and follow his H/H. * This patient had evidence of hepatic insufficiency likely related to RV dysfunction that has resolved. Restart a small dose of Atorvastatin at 20mg daily. * In consideration of this patient's poor EF he was seen by Dr. Botello who is inclined to pursue AICD placement with HIS bundle pacing if the patient agrees. He was asked to follow up with Dr. Botello as an outpatient when more stable. * A small dose of Coreg was tried with resultant bradycardia. This patient has tried beta blockers, ACEI and ARB's in the past with untoward side effects. I would stop his Coreg at this point in time and reconsider both beta zamzam and ACEI/ARB's if he receives a pacemaker which will protect him from bradycardia and help with his pre-renal state. Continue telemetry? Yes
[2018-03-24 16:00] VITALS: BP 101/46
[2018-03-24 23:00] VITALS: BP 114/55
[2018-03-25 04:18] LABS: ABSOLUTE BASOPHIL COUNT 0 /CUMM (0.0-0.2); ABSOLUTE EOSINOPHIL COUNT 0.1 /CUMM (0.0-0.7); ABSOLUTE LYMPH COUNT 0.5 /CUMM (1.2-3.4); ABSOLUTE MONOCYTE COUNT 1.2 /CUMM (0.10-0.60); BASOPHIL % 0 % (0.0-2.0); EOSINOPHIL % 0.4 % (0-5); HEMATOCRIT 28.2 % (42-52); MEAN CORPUSCULAR HGB 29.4 PG (27.0-31.0); MEAN CORPUSCULAR VOLUME 91.7 FL (80.0-94.0); MEAN PLATELET VOLUME 8.6 FL (7.4-10.4); PLATELET COUNT 140 /CUMM (130-400); RBC DISTRIBUTION WIDTH 21.8 % (11.5-14.5); RED BLOOD CELL CT 3.08 /CUMM (4.70-6.10); WHITE BLOOD CELL COUNT 15.8 /CUMM (4.8-10.8)
[2018-03-25 04:38] LABS: GRANULOCYTE % 88.4 % (42.2-75.2)
--- NOTE | 2018-03-25 07:06 | PN- Housestaff ---
Everardo Wilde 03/25/18 0705: Subjective Follow-up For: Peripheral vascular disease status post right femoral endarterectomy Intractable lower limb pain [improved] post procedure Multiple digit amputation Reduced ejection fraction of 20-30% Oliguria GRECIA on CKD Pulmonary edema Complaints: no complaints Tele-Events Since Last Visit: Episodes of bradycardia lowest 47 Review of Systems Constitutional: Denies: chills, fever. Cardiovascular: Denies: chest pain, palpitations. Respiratory: Denies: cough, short of breath. Gastrointestinal: Denies: abdominal pain, nausea, vomiting. Genitourinary: Denies: no symptoms. Musculoskeletal: Reports: see HPI. Objective Last 24 Hrs of Vital Signs/I&O Vital Signs Date Time Temp Pulse Resp B/P B/P Pulse O2 O2 Flow FiO2 Mean Ox Delivery Rate 03/25 0000 99 Nasal 1.0L Cannula 03/24 2300 97.6 57 21 114/55 99 Nasal 1.0L Cannula 03/24 1600 97 Nasal 1.0L Cannula 03/24 1600 97.8 56 22 101/46 100 Nasal 2.0L Cannula 03/24 1419 Nasal 1.0L Cannula 03/24 0800 97 Nasal 1.0L Cannula Intake & Output 03/25 0800 03/25 0000 03/24 1600 Intake Total 120 120 900 Output Total 60 150 80 Balance 60 -30 820 Intake, IV 300 Intake, Oral 120 120 600 Number 0 0 0 Bowel Movements Output, Urine 60 150 80 Patient 176 lb Weight Weight Bed scale Measurement Method Physical Exam General Appearance: Alert, Cooperative, No Acute Distress Skin: No Rashes Skin Temp/Moisture Exam: Warm/Dry Sepsis Skin Exam (color): Normal for Ethnicity HEENT: Atraumatic, PERRLA Neck: Supple, No JVD Cardiovascular: Regular Rate Lungs: Clear to Auscultation, Normal Air Movement Abdomen: Normal Bowel Sounds, Soft, No Tenderness Neurological: Normal Speech Extremities: No Clubbing, No Cyanosis, Wound vac in place on the right femoral area/proximal thigh Vascular: Normal Pulses Current Medications: Current Medications Sig/Salome Start time Last Medication Dose Route Stop Time Status Admin Albuterol Sulfate See Dose Q4-6 PRN PRN 03/17 1945 AC Insts (1) INH Ascorbic Acid 500 MG DAILY 03/18 900 AC 03/24 PO 0900 Aspirin Buffered 81 MG QAM 03/18 900 AC 03/24 PO 0900 Atorvastatin Calcium 20 MG 1700 03/24 1700 AC 03/24 PO 1705 Budesonide/ 2 PUF BID 03/17 2100 AC 03/24 Formoterol Fumarate INH 205 Carvedilol 6.25 MG BID 03/22 2100 DC 03/23 PO 0841 Clopidogrel Bisulfate 75 MG DAILY 03/20 0900 AC 03/24 PO 0900 Cyanocobalamin 1,000 MCG DAILY 03/18 0900 AC 03/24 PO 0900 Digoxin 0.125 MG 1700 03/18 1700 AC 03/24 PO 1705 Ezetimibe 10 MG DAILY 03/18 0900 AC 03/24 PO 0900 Ferrous Sulfate 325 MG TID 03/17 2100 AC 03/24 PO 205 Furosemide 40 MG ONE ONE 03/24 1330 DC 03/24 PO 03/24 1331 1331 Furosemide 40 MG .STK-MED ONE 03/24 1327 DC PO 03/24 1328 Glycerin 2 SPRAY Q2P PRN 03/23 0500 AC 03/25 PO 0342 Heparin Sodium 5,000 UNIT Q8 03/22 2200 AC 03/25 (Porcine) SC 0518 Hydromorphone HCl 1 MG Q6 PRN 03/17 1945 DC 03/20 IV 1951 Insulin Aspart 0 TIDAC 03/22 1700 AC 03/24 SC 1708 Insulin Detemir 4 UNITS QPM 03/22 2100 AC 03/24 SC 205 Levothyroxine Sodium 0.025 MG DAILY AC 03/18 0700 AC 03/25 PO 0518 Omeprazole 40 MG DAILY AC 03/19 0837 AC 03/25 PO 0517 Oxycodone/ 2 TAB Q6P PRN 03/17 194 DC 03/22 Acetaminophen PO 0415 Sertraline HCl 50 MG DAILY 03/18 0900 AC 03/24 PO 0900 Silver Sulfadiazine 1 TULIO DAILY 03/24 0900 AC 03/24 TOP 0900 Sodium Chloride 1,000 ML Q13H 03/24 1015 DC 03/24 IV 03/24 2314 1046 Sodium Chloride 500 ML ONCE ONE 03/24 0615 DC 03/24 IV 03/24 1614 0608 Dose Instructions: (1)Albuterol Sulfate: 1-2 PUF Last 24 Hrs of Lab/Sadi Results Last 24 Hrs of Labs/Mics: Laboratory Tests 03/25/18 0327: Anion Gap 12, Estimated GFR 30 L, Glucose 126 H, Calcium 8.6, Phosphorus 5.4 H, Magnesium 2.6 H, Total Bilirubin 0.7, AST 21, ALT 63, Albumin 2.7 L, CBC w Diff NO MAN DIFF REQ, RBC 3.08 L, MCV 91.7, MCH 29.4, MCHC 32.0 L, RDW 21.8 H , MPV 8.6, Gran % 88.4 H, Lymphocytes % 3.3 L, Monocytes % 7.9, Eosinophils % 0.4, Basophils % 0, Absolute Granulocytes 14.0 H, Absolute Lymphocytes 0.5 L, Absolute Monocytes 1.2 H, Absolute Eosinophils 0.1, Absolute Basophils 0 03/24/18 1000: Urine Osmolality 384, Ur Random Creatinine 220.3, Ur Random Sodium 7 L, Ur Random Potassium 28.8, Fraction Sodium Excret 0.0 Assessment/Plan Assessment: Mr. Almanzar is a 67-year-old male with PMH of aortic stenosis, CAD s/p CABG (2016), CHF (last Echo 03/20/2018 that showed anterior wall hypokinesis and normal diastolic part in and reduced ejection fraction of 20-30% significant decrease from previous echo 3 months ago, Hypertension, hyperlipidemia, NSTEMI, PVD, urinary incontinence, CKD, and chronic osteomyelities w/ toes amputation who presented to [facility] with complains of progressive worsening right lower leg pain. Patient was found to have significant blood supply compromise to the right leg with pain at rest and extensive right common artery disease extending into the profunda. Problem list 1. Severe stenosis in the proximal superficial femoral artery. 2. GRECIA on CKD 3. Transaminitis 4. Anemia 5. History of PVD 6. History of Hypertension, Hyperlipidemia On March 22 the patient was taken to the OR for common femoral artery endarterectomy and post procedure the patient was transferred to the intensive care unit for observation. There was no significant decrease in H&H postprocedure. The patient required 4 units of blood transfusion prior to the procedure with the recommendation by color artist to have had a H&H of 08/01 before procedure. His H&H has continued to remain stable post procedure. Heart failure with reduced ejection fraction Patient followed by color artist Dr. English and also coal inspector Dr. Botello. Recommended the patient to start Coreg 6.5 mg twice a day but this dose was not given yesterday because the patient was bradycardic with heart rate as low as 48. This patient had non-ST elevated myocardial infarction about 6 weeks ago which can explain his dramatic decrease in ejection fraction. According to the ejection fraction the patient requires AICD but its worth to wait a while to see if ejection fraction can rebound back to normal recommendation provided by Dr. Botello. We will not give the patient low dose and traced to because of his kidney disease. GRECIA on CKD Patient had a CK Do with Creatinine Increased to 2.3 from Baseline of around 1.8 -1.9. GRECIA had Resolved yesterday to baseline values but on March 24 the patient creatinine has increased to 2.2 it's reported that the patient has been anuric on a producing 50 mL of urine. On March 25 creatinine remained at the same level of 2.2. Attempts to hydrate the patient given very low sodium in the urine and very low fractional excretion of sodium was abolished after x-ray showed features suggestive of pulmonary edema. Patient received a challenge with home dose of Lasix 40 mg but overnight produced a total of 290 mL of urine which is giving an oliguric picture. Will get repeat chest x-ray today and if is clear we will give IV fluids gently. Diabetes mellitus Patient is on insulin sliding scale. Overnight blood sugars starting from yesterday morning were 207, 210, 210, 193, 193, 183. We will continue with insulin subcutaneous and Accu-Cheks. Anemia Most likely due to chronic kidney disease stage III B. H&H has remained stable. Last transfusion just before procedure and postprocedure H&H hemorrhage is not unchanged. We'll continue to monitor H&H. Transaminitis (resolved) On presentation had ALT of 324 which improved and is back to normal on March 25 at 63. Problem List: 1. Peripheral vascular disease 2. Pedal edema 3. Renal insufficiency 4. HFrEF (heart failure with reduced ejection fraction) 5. Peripheral edema 6. Anemia Pain Ratin Pain Location: None Pain Goal: Remain pain free Pain Plan: PRN meds Tomorrow's Labs & Rationales: ICU bundle and CBC DVT/Prophylaxis: pharmacological Anoop Husain MD 03/25/18 5667: Attending Review Statement Attending Statement Attending Statement: examined this patient, discuss w/resident/PA/[employer] OFFICER, reviewed EMR data (avail), reviewed images, amended to note Attending Assessment/Plan: The patient was seen and discussed with house staff. Appreciate Cardiology and Nephrology follow-up. Follow Creatinine, encourage po intake. Beta zamzam discontinued (HR in 50's at time of my visit).
[2018-03-25 08:00] VITALS: BP 118/62
--- NOTE | 2018-03-25 08:26 | RADIOLOGY REPORT ---
EXAMINATION: XR PORTABLE CHEST CLINICAL INFORMATION: Evaluate for fluid overload. COMPARISON: Multiple chest x-rays most recent prior dated 03/24/2018 TECHNIQUE: Portable frontal view of the chest was obtained. FINDINGS: Moderate to severe cardiomegaly. Status post median sternotomy and CABG. Hazy prominence of the interstitial markings predominantly noted in the right lung consistent with asymmetric interstitial edema. Patchy opacity right perihilar region noted again. Small right and trace left effusion suspected. Assessment of the left lower lung is limited due to patient's body habitus. There is suggestion of left basilar opacity in the retrocardiac region. IMPRESSION: Stable cardiomegaly and interstitial edema, right greater than left. Slightly improved aeration noted in the left lung compared to the prior study. Persistent patchy airspace opacity right perihilar region. Superimposed pneumonia cannot be excluded. Stable small right and trace left pleural effusion. Stable retrocardiac opacity.
--- NOTE | 2018-03-25 10:41 | PN- Nephrology ---
Assessment/Plan Nephrology Assessment: GRECIA - had improved back to baseline - likely 2/2 contrast prior to admission. Ddx includes pre-renal azotemia given low FENa, contrast induced nephropathy ( can occur 48-72hrs after contrast which was given during endarterectomy), and/or mild ATN from perioperative hypotensive insult. Fortunately level stable today with intervention of 40mg PO lasix yesterday. Given chest x-ray findings, I'd be hesitant to give him fluid but given the low FENa, I am also hesitant to try and actively diurese. It should also be worth noting that he may be in a chronic "salt retentive" state from a chronic "cardiorenal syndrome" - which would also have a low FENa (has been low on numerous occassions when checked in the past). Should note that he probably should have a UA checked again during this admission. Stage III CKD - baseline SCr in mid to high 1's - variably proteinuric - likely 2/2 hypertensive nephrosclerosis, chronic cardiorenal syndrome, and vascular disease. Anemia - Out of proportion to kidney disease. Has received 4U PRBC. Stool is guaic positive - GI following. I would check ferritin, iron stores, Vit B12, Folate, and retic count (had been increased before). Hypernatremia - Likely reflective of decreased free water intake - improving. PVD - s/p common femoral endarterectomy. Suggestion: -Would hold off on additional IVF -Would hold off on diuresis unless respiratory status were to worsen -UA with microscopic analysis -OK to allow free water to thirst for now but would maybe limit at 2L/day for now -Check ferritin, iron stores, Vit B12, Folate, and retic count (had been increased before). Please call [phone] with ?'s Subjective Subjective: SCr stable at 2.2 295cc UOP yesterday - but 350cc so far this AM Breathing is "OK" Had been given 40mg PO lasix for pulm edema visualized on chest imaging - improved imaging today FENa low Objective Vital Signs and I&Os Vital Signs Date Time Temp Pulse Resp B/P B/P Pulse O2 O2 Flow FiO2 Mean Ox Delivery Rate 03/25 0800 97.8 52 18 118/62 98 Nasal 1.0L Cannula 03/25 0000 99 Nasal 1.0L Cannula 03/24 2300 97.6 57 21 114/55 99 Nasal 1.0L Cannula 03/24 1600 97 Nasal 1.0L Cannula 03/24 1600 97.8 56 22 101/46 100 Nasal 2.0L Cannula 03/24 1419 Nasal 1.0L Cannula Intake & Output 03/25 1600 03/25 0400 03/24 1600 03/24 0400 03/23 1600 03/23 0400 Intake Total 482 492 2680 1600 620 Output Total 60 150 145 100 390 250 Balance 60 -30 875 1500 230 -250 Intake, IV 300 20 Intake, Oral 120 256 614 5036 600 Number 0 0 0 0 Bowel Movements Output, Urine 60 150 145 100 390 250 Patient 176 lb 169 lb Weight Weight Bed scale Measurement Method Physical Exam: Gen - better appearing HEENT - JVP up CV - RRR, no m/r/g Chest - clear anteriorly Abd - soft, NTND Ext - no edema, s/p multiple toe amputations Neuro - AOX3, grossly nonfocal Current Medications: Current Medications Sig/Salome Start time Last Medication Dose Route Stop Time Status Admin Albuterol Sulfate See Dose Q4-6 PRN PRN 03/17 1945 AC Insts (1) INH Ascorbic Acid 500 MG DAILY 03/18 09 AC 03/25 PO 0946 Aspirin Buffered 81 MG QAM 03/18 09 AC 03/25 PO 0945 Atorvastatin Calcium 20 MG 03/24 170 AC 03/24 PO 1705 Budesonide/ 2 PUF BID 03/17 2100 AC 03/25 Formoterol Fumarate INH 0945 Clopidogrel Bisulfate 75 MG DAILY 03/20 09 AC 03/25 PO 0946 Cyanocobalamin 1,000 MCG DAILY 03/18 09 AC 03/25 PO 0946 Digoxin 0.125 MG 03/18 1700 AC 03/24 PO 1705 Ezetimibe 10 MG DAILY 03/18 0900 AC 03/25 PO 0946 Ferrous Sulfate 325 MG TID 03/17 2100 AC 03/25 PO 0946 Furosemide 40 MG ONE ONE 03/24 1330 DC 03/24 PO 03/24 1331 1331 Furosemide 40 MG .STK-MED ONE 03/24 1327 DC PO 03/24 1328 Glycerin 2 SPRAY Q2P PRN 03/23 0500 AC 03/25 PO 0944 Heparin Sodium 5,000 UNIT Q8 03/22 2200 AC 03/25 (Porcine) SC 0518 Hydromorphone HCl 1 MG Q6 PRN 03/17 1945 DC 03/20 IV 195 Insulin Aspart 0 TIDAC 03/22 1700 AC 03/24 SC 170 Insulin Detemir 4 UNITS QPM 03/22 2100 AC 03/24 SC 2050 Levothyroxine Sodium 0.025 MG DAILY AC 03/18 0700 AC 03/25 PO 0518 Omeprazole 40 MG DAILY AC 03/19 0837 AC 03/25 PO 0517 Oxycodone/ 2 TAB Q6P PRN 03/17 1945 DC 03/22 Acetaminophen PO 0415 Sertraline HCl 50 MG DAILY 03/18 0900 AC 03/25 PO 0946 Silver Sulfadiazine 1 TULIO DAILY 03/24 0900 AC 03/25 TOP 0946 Sodium Chloride 1,000 ML Q13H 03/24 1015 DC 03/24 IV 03/24 2314 1046 Dose Instructions: (1)Albuterol Sulfate: 1-2 PUF Results Pertinent Lab Results: Laboratory Tests 03/25 03/24 0327 UNK Chemistry Sodium (137 - 145 mmol/L) 143 Potassium (3.5 - 5.1 mmol/L) 5.1 Chloride (98 - 107 mmol/L) 111 H Carbon Dioxide (22 - 30 mmol/L) 20 L Anion Gap (5 - 16) 12 BUN (9 - 20 mg/dL) 89 H Creatinine (0.7 - 1.2 mg/dL) 2.2 H Estimated GFR (>60 ml/min) 30 L Glucose (65 - 99 mg/dL) 126 H Calcium (8.4 - 10.2 mg/dL) 8.6 Phosphorus (2.5 - 4.5 mg/dL) 5.4 H Magnesium (1.6 - 2.3 mg/dL) 2.6 H Total Bilirubin (0.2 - 1.3 mg/dL) 0.7 AST (17 - 59 U/L) 21 ALT (21 - 72 U/L) 63 Albumin (3.5 - 5.0 g/dL) 2.7 L Hematology CBC w Diff NO MAN DIFF REQ WBC (4.8 - 10.8 /CUMM) 15.8 H RBC (4.70 - 6.10 /CUMM) 3.08 L Hgb (14.0 - 18.0 G/DL) 9.0 L Hct (42 - 52 %) 28.2 L MCV (80.0 - 94.0 FL) 91.7 MCH (27.0 - 31.0 PG) 29.4 MCHC (33.0 - 37.0 G/DL) 32.0 L RDW (11.5 - 14.5 %) 21.8 H Plt Count (130 - 400 /CUMM) 140 MPV (7.4 - 10.4 FL) 8.6 Gran % (42.2 - 75.2 %) 88.4 H Lymphocytes % (20.5 - 51.1 %) 3.3 L Monocytes % (1.7 - 9.3 %) 7.9 Eosinophils % (0 - 5 %) 0.4 Basophils % (0.0 - 2.0 %) 0 Absolute Granulocytes (1.4 - 6.5 /CUMM) 14.0 H Absolute Lymphocytes (1.2 - 3.4 /CUMM) 0.5 L Absolute Monocytes (0.10 - 0.60 /CUMM) 1.2 H Absolute Eosinophils (0.0 - 0.7 /CUMM) 0.1 Absolute Basophils (0.0 - 0.2 /CUMM) 0 Urines Urine Osmolality (300 - 1000 MOSM/KG) 384 Ur Random Creatinine (mg/dL) 220.3 Ur Random Sodium (30 - 90 mmol/L) 7 L Ur Random Potassium (mmol/L) 28.8 Fraction Sodium Excret (<1% %) 0.0 03/24 03/23 0437 0600 Chemistry Sodium (137 - 145 mmol/L) 144 Potassium (3.5 - 5.1 mmol/L) 4.8 Chloride (98 - 107 mmol/L) 111 H Carbon Dioxide (22 - 30 mmol/L) 22 Anion Gap (5 - 16) 11 BUN (9 - 20 mg/dL) 86 H Creatinine (0.7 - 1.2 mg/dL) 2.2 H Estimated GFR (>60 ml/min) 30 L Glucose (65 - 99 mg/dL) 175 H Calcium (8.4 - 10.2 mg/dL) 8.7 Phosphorus (2.5 - 4.5 mg/dL) 5.3 H Magnesium (1.6 - 2.3 mg/dL) 2.5 H Total Bilirubin (0.2 - 1.3 mg/dL) 0.6 AST (17 - 59 U/L) 25 ALT (21 - 72 U/L) 73 H Albumin (3.5 - 5.0 g/dL) 2.5 L Hematology CBC w Diff MAN DIFF ORDERED WBC (4.8 - 10.8 /CUMM) 16.4 H RBC (4.70 - 6.10 /CUMM) 2.99 L Hgb (14.0 - 18.0 G/DL) 8.7 L Hct (42 - 52 %) 27.5 L MCV (80.0 - 94.0 FL) 92.0 MCH (27.0 - 31.0 PG) 29.1 MCHC (33.0 - 37.0 G/DL) 31.6 L RDW (11.5 - 14.5 %) 21.5 H Plt Count (130 - 400 /CUMM) 140 MPV (7.4 - 10.4 FL) 8.0 Gran % (42.2 - 75.2 %) 88.2 H Lymphocytes % (20.5 - 51.1 %) 2.2 L Monocytes % (1.7 - 9.3 %) 9.2 Eosinophils % (0 - 5 %) 0.4 Basophils % (0.0 - 2.0 %) 0 Absolute Granulocytes (1.4 - 6.5 /CUMM) 14.5 H Segmented Neutrophils (42.2 - 75.2 %) 91 H Absolute Lymphocytes (1.2 - 3.4 /CUMM) 0.4 L Lymphocytes (20.5 - 51.1 %) 3 L Monocytes (1.7 - 9.3 %) 5 Absolute Monocytes (0.10 - 0.60 /CUMM) 1.5 H Absolute Eosinophils (0.0 - 0.7 /CUMM) 0.1 Basophils (0.0 - 2.0 %) 1 Absolute Basophils (0.0 - 0.2 /CUMM) 0 Platelet Estimate (ADEQUATE) ADEQUATE Polychromasia 1+ Hypochromic-Microcytic 1+ Poikilocytosis 1+ Ovalocytes 1+ Immunology Complement C3 Pending Complement C4 Pending Other Body Source Fld Total RBCs Counted (%) 100 06/19 03/22 0340 2300 Chemistry Sodium (137 - 145 mmol/L) 147 H 148 H Potassium (3.5 - 5.1 mmol/L) 5.1 5.1 Chloride (98 - 107 mmol/L) 115 H 116 H Carbon Dioxide (22 - 30 mmol/L) 19 L 19 L Anion Gap (5 - 16) 13 13 BUN (9 - 20 mg/dL) 74 H 72 H Creatinine (0.7 - 1.2 mg/dL) 1.9 H 1.8 H Estimated GFR (>60 ml/min) 36 L 38 L BUN/Creatinine Ratio (7 - 25 %) 40.0 H Glucose (65 - 99 mg/dL) 95 Calcium (8.4 - 10.2 mg/dL) 8.7 Phosphorus (2.5 - 4.5 mg/dL) 5.9 H Magnesium (1.6 - 2.3 mg/dL) 2.3 Total Bilirubin (0.2 - 1.3 mg/dL) 0.8 AST (17 - 59 U/L) 26 ALT (21 - 72 U/L) 99 H Creatine Kinase (55 - 170 U/L) 98 Albumin (3.5 - 5.0 g/dL) 2.5 L Hematology CBC w Diff NO MAN DIFF REQ NO MAN DIFF REQ WBC (4.8 - 10.8 /CUMM) 15.0 H 14.9 H RBC (4.70 - 6.10 /CUMM) 3.02 L 3.17 L Hgb (14.0 - 18.0 G/DL) 8.9 L 9.1 L Hct (42 - 52 %) 27.7 L 28.8 L MCV (80.0 - 94.0 FL) 92.0 90.9 MCH (27.0 - 31.0 PG) 29.3 28.7 MCHC (33.0 - 37.0 G/DL) 31.9 L 31.6 L RDW (11.5 - 14.5 %) 21.5 H 20.7 H Plt Count (130 - 400 /CUMM) 138 156 MPV (7.4 - 10.4 FL) 7.6 7.3 L Gran % (42.2 - 75.2 %) 88.7 H 88.8 H Lymphocytes % (20.5 - 51.1 %) 2.1 L 1.9 L Monocytes % (1.7 - 9.3 %) 9.1 9.2 Eosinophils % (0 - 5 %) 0.1 0.1 Basophils % (0.0 - 2.0 %) 0 0 Absolute Granulocytes (1.4 - 6.5 /CUMM) 13.3 H 13.2 H Absolute Lymphocytes (1.2 - 3.4 /CUMM) 0.3 L 0.3 L Absolute Monocytes (0.10 - 0.60 /CUMM) 1.4 H 1.4 H Absolute Eosinophils (0.0 - 0.7 /CUMM) 0 0 Absolute Basophils (0.0 - 0.2 /CUMM) 0 0 03/22 03/22 1630 1445 Coagulation APTT Cancelled Hematology CBC w Diff NO MAN DIFF REQ WBC (4.8 - 10.8 /CUMM) 13.1 H RBC (4.70 - 6.10 /CUMM) 3.28 L Hgb (14.0 - 18.0 G/DL) 9.7 L Hct (42 - 52 %) 29.4 L MCV (80.0 - 94.0 FL) 89.8 MCH (27.0 - 31.0 PG) 29.6 MCHC (33.0 - 37.0 G/DL) 33.0 RDW (11.5 - 14.5 %) 20.0 H Plt Count (130 - 400 /CUMM) 143 MPV (7.4 - 10.4 FL) 7.5 Gran % (42.2 - 75.2 %) 79.9 H Lymphocytes % (20.5 - 51.1 %) 7.7 L Monocytes % (1.7 - 9.3 %) 11.3 H Eosinophils % (0 - 5 %) 1.0 Basophils % (0.0 - 2.0 %) 0.1 Absolute Granulocytes (1.4 - 6.5 /CUMM) 10.5 H Absolute Lymphocytes (1.2 - 3.4 /CUMM) 1.0 L Absolute Monocytes (0.10 - 0.60 /CUMM) 1.5 H Absolute Eosinophils (0.0 - 0.7 /CUMM) 0.1 Absolute Basophils (0.0 - 0.2 /CUMM) 0 Imaging/Other Studies: EXAM TYPE: RAD - XRY-PORTABLE CHEST XRAY EXAMINATION: XR PORTABLE CHEST CLINICAL INFORMATION: Evaluate for fluid overload. COMPARISON: Multiple chest x-rays most recent prior dated 03/24/2018 TECHNIQUE: Portable frontal view of the chest was obtained. FINDINGS: Moderate to severe cardiomegaly. Status post median sternotomy and CABG. Hazy prominence of the interstitial markings predominantly noted in the right lung consistent with asymmetric interstitial edema. Patchy opacity right perihilar region noted again. Small right and trace left effusion suspected. Assessment of the left lower lung is limited due to patient's body habitus. There is suggestion of left basilar opacity in the retrocardiac region. IMPRESSION: Stable cardiomegaly and interstitial edema, right greater than left. Slightly improved aeration noted in the left lung compared to the prior study. Persistent patchy airspace opacity right perihilar region. Superimposed pneumonia cannot be excluded. Stable small right and trace left pleural effusion. Stable retrocardiac opacity.
[2018-03-25 16:00] VITALS: BP 118/62
[2018-03-25 22:30] VITALS: BP 160/98
[2018-03-26 06:50] VITALS: BP 132/80
[2018-03-26 08:22] LABS: ABSOLUTE BASOPHIL COUNT 0 /CUMM (0.0-0.2); ABSOLUTE EOSINOPHIL COUNT 0.1 /CUMM (0.0-0.7); ABSOLUTE GRANULOCYTE CT 13.1 /CUMM (1.4-6.5); ABSOLUTE LYMPH COUNT 0.4 /CUMM (1.2-3.4); ABSOLUTE MONOCYTE COUNT 1.1 /CUMM (0.10-0.60); BASOPHIL % 0 % (0.0-2.0); EOSINOPHIL % 0.9 % (0-5); HEMATOCRIT 27.5 % (42-52); MEAN CORPUSCULAR HGB 29.4 PG (27.0-31.0); MEAN CORPUSCULAR HGB CONC 32.3 G/DL (33.0-37.0); MEAN PLATELET VOLUME 8.5 FL (7.4-10.4); PLATELET COUNT 146 /CUMM (130-400); RBC DISTRIBUTION WIDTH 21.4 % (11.5-14.5); RED BLOOD CELL CT 3.02 /CUMM (4.70-6.10); WHITE BLOOD CELL COUNT 14.7 /CUMM (4.8-10.8)
--- NOTE | 2018-03-26 08:29 | PN- Housestaff ---
See Addendum Bal BROWN,[place] 03/26/18 0829: Subjective Follow-up For: Peripheral vascular disease status post right femoral endarterectomy Intractable lower limb pain [improved] post procedure Multiple digit amputation Reduced ejection fraction of 20-30% Oliguria GRECIA on CKD Pulmonary edema Tele-Events Since Last Visit: Sinus bradycardia, first-degree AV block, 59, 0.18, 0.28, bundle branch block Subjective: The patient was seen and examined, denies any complaints, vital signs stable, no overnight events Review of Systems Constitutional: Reports: see HPI. Objective Last 24 Hrs of Vital Signs/I&O Vital Signs Date Time Temp Pulse Resp B/P B/P Pulse O2 O2 Flow FiO2 Mean Ox Delivery Rate 03/26 0650 97.4 55 20 132/80 98 Nasal 1.5L Cannula 03/26 0000 98 Nasal 1.0L Cannula 03/25 2230 97.9 71 22 160/98 98 Nasal 1.0L Cannula 03/25 1600 98 Nasal 1.0L Cannula 03/25 1600 97.8 52 20 118/62 98 Nasal 1.0L Cannula Intake & Output 03/26 1600 03/26 0800 03/26 0000 Intake Total 200 120 Output Total 500 15 Balance -300 105 Intake, Oral 200 120 Number 1 Bowel Movements Output, Urine 500 15 Patient 179 lb Weight Physical Exam General Appearance: Alert, Oriented X3, Cooperative, No Acute Distress HEENT: Atraumatic, PERRLA, EOMI, Mucous Membr. moist/pink Cardiovascular: Normal S1, Normal S2 Lungs: Clear to Auscultation Abdomen: Normal Bowel Sounds, Soft Extremities: No Clubbing, No Cyanosis, wound vac in place Assessment/Plan Assessment: Mr. Almanzar is a 67-year-old male with PMH of aortic stenosis, CAD s/p CABG (2016), CHF (last Echo 03/20/2018 that showed anterior wall hypokinesis and normal diastolic part in and reduced ejection fraction of 20-30% significant decrease from previous echo 3 months ago, Hypertension, hyperlipidemia, NSTEMI, PVD, urinary incontinence, CKD, and chronic osteomyelities w/ toes amputation who presented to [facility] with complains of progressive worsening right lower leg pain. PatienMr. Almanzar is a 67-year-old male with PMH of aortic stenosis, CAD s/p CABG (08/2017), CHF (last Echo 03/20/2018 that showed anterior wall hypokinesis and normal diastolic part in and reduced ejection fraction of 20-30% significant decrease from previous echo 3 months ago, Hypertension, hyperlipidemia, NSTEMI, PVD, urinary incontinence, CKD, and chronic osteomyelities w/ toes amputation who presented to [facility] with complains of progressive worsening right lower leg pain. Patient was found to have significant blood supply compromise to the right leg with pain at rest and extensive right common artery disease extending into the profunda. Problem list 1. Severe stenosis in the proximal superficial femoral artery. 2. GRECIA on CKD 3. Transaminitis 4. Anemia 5. History of PVD 6. History of Hypertension, Hyperlipidemia On March 22 the patient was taken to the OR for common femoral artery endarterectomy and post procedure the patient was transferred to the intensive care unit for observation. There was no significant decrease in H&H postprocedure. The patient required 4 units of blood transfusion prior to the procedure with the recommendation by dean for student affairs to have had a H&H of 08/01 before procedure. His H&H has continued to remain stable post procedure. 0n 03/25 patient was transferred to telemetry, he was started on carvedilol while on the ICU which resulted in bradycardia. He was transferred to telemetry for close monitoring of his heart rate. Heart failure with reduced ejection fraction Patient followed by dean for student affairs Dr. English and also general neurologist Dr. Botello. Recommended the patient to start Coreg 6.5 mg twice a day but this dose was not given because the patient was bradycardic with heart rate as low as 48. This patient had non-ST elevated myocardial infarction about 6 weeks ago which can explain his dramatic decrease in ejection fraction. According to the ejection fraction the patient requires AICD but its worth to wait a while to see if ejection fraction can rebound back to normal recommendation provided by Dr. Botello. We will not give the patient low dose and traced to because of his kidney disease. GRECIA on CKD Creatinine improved today 1.8 Patient had a CKD with Creatinine Increased to 2.3 from Baseline of around 1.8- 1.9. GRECIA had Resolved yesterday to baseline values but on March 24 the patient creatinine has increased to 2.2 it's reported that the patient has been anuric on a producing 50 mL of urine. On March 25 creatinine remained at the same level of 2.2. Attempts to hydrate the patient given very low sodium in the urine and very low fractional excretion of sodium was abolished after x-ray showed features suggestive of pulmonary edema. Patient received a challenge with home dose of Lasix 40 mg but overnight produced a total of 290 mL of urine which is giving an oliguric picture. -We will hold off IV fluids and diuretics for now as per nephrology recommendation Diabetes mellitus Patient is on insulin sliding scale. Overnight blood sugars starting from yesterday morning were 142, 236, 148, 169. We will continue with insulin subcutaneous and Accu-Cheks. Anemia Most likely due to chronic kidney disease stage III B. H&H has remained stable. Last transfusion just before procedure and postprocedure H&H hemorrhage is not unchanged. We'll continue to monitor H&H. Transaminitis (resolved) On presentation had ALT of 324 which improved and is back to normal on March 25 at 63. Problem list 1. Severe stenosis in the proximal superficial femoral artery. 2. GRECIA on CKD 3. Transaminitis 4. Anemia 5. History of PVD 6. History of Hypertension, Hyperlipidemia On March 22 the patient was taken to the OR for common femoral artery endarterectomy and post procedure the patient was transferred to the intensive care unit for observation. There was no significant decrease in H&H postprocedure. The patient required 4 units of blood transfusion prior to the procedure with the recommendation by dean for student affairs to have had a H&H of 08/01 before procedure. His H&H has continued to remain stable post procedure. Heart failure with reduced ejection fraction Patient followed by dean for student affairs Dr. English and also general neurologist Dr. Botello. Recommended the patient to start Coreg 6.5 mg twice a day but this dose was not given yesterday because the patient was bradycardic with heart rate as low as 48. This patient had non-ST elevated myocardial infarction about 6 weeks ago which can explain his dramatic decrease in ejection fraction. According to the ejection fraction the patient requires AICD but its worth to wait a while to see if ejection fraction can rebound back to normal recommendation provided by Dr. Botello. We will not give the patient low dose and traced to because of his kidney disease. GRECIA on CKD Patient had a CK Do with Creatinine Increased to 2.3 from Baseline of around 1.8 -1.9. GRECIA had Resolved yesterday to baseline values but on March 24 the patient creatinine has increased to 2.2 it's reported that the patient has been anuric on a producing 50 mL of urine. On March 25 creatinine remained at the same level of 2.2. Attempts to hydrate the patient given very low sodium in the urine and very low fractional excretion of sodium was abolished after x-ray showed features suggestive of pulmonary edema. Patient received a challenge with home dose of Lasix 40 mg but overnight produced a total of 290 mL of urine which is giving an oliguric picture. Will get repeat chest x-ray today and if is clear we will give IV fluids gently. Diabetes mellitus Patient is on insulin sliding scale. Overnight blood sugars starting from yesterday morning were 207, 210, 210, 193, 193, 183. We will continue with insulin subcutaneous and Accu-Cheks. Anemia Most likely due to chronic kidney disease stage III B. H&H has remained stable. Last transfusion just before procedure and postprocedure H&H hemorrhage is not unchanged. We'll continue to monitor H&H. Transaminitis (resolved) On presentation had ALT of 324 which improved and is back to normal on March 25 at 63. Problem List: 1. Peripheral vascular disease 2. Renal insufficiency 3. HFrEF (heart failure with reduced ejection fraction) Pain Ratin Pain Location: N/A Pain Goal: Remain pain free Pain Plan: Pathway Tomorrow's Labs & Rationales: CBC BEP Tien Hidalgo 03/26/18 1316: Attending MD Review Statement Attending Statement Attending MD Statement: examined this patient, discuss w/resident/PA/ASTRONOMY DEPARTMENT CHAIR, agreed w/resident/PA/ASTRONOMY DEPARTMENT CHAIR, discussed with family, reviewed EMR data (avail), discussed with nursing, discussed with case mgmt, reviewed images, amended to note Attending Assessment/Plan: Patient transferred from ICU to telemetry. Patient had long complictaed stay s/p right sided femoral endarterectomy after limb pain from ischemia. Patient is high surgical risk considering his severe depressed heart funtion and heart failure. He also has h/o CKD. Patient received multiple units of trnasfusion for anemia of chronic disease and vivi-operative blood loss anemia. Patient is being followed by nephrology, cardiology, vascular surgery, podiatry and Gastroenetrolgoy during this hospital admission. Labs and vitals noted. No new complaints. PLAN: Restart lasix 40 mg daily as per nephrology. Monitor blood pressure, creatinine in morning. Monitor his respiratory status and kidney functions. H/h STABLE. Discharge planning to [facility] if ok with cardiology and nephrology.
--- NOTE | 2018-03-26 09:35 | PN- Vascular Surgery ---
Surgical Brief Attending Note Brief Attending Note: pt seen and examined. s/p right common femoral endarterectomy for ischemic rest pain of right foot with wound. right foot is warm to the touch now with good cap refill. strong pt signal. podiatry following for wound care. pt is on asa /plavix. will continue to watch right foot closely. if does not appear to be healing may need fem to pt bypass but pt is a high surgical risk.
[2018-03-26 09:50] LABS: GRANULOCYTE % 88.9 % (42.2-75.2)
--- NOTE | 2018-03-26 10:17 | PN- Podiatry ---
Subjective Subjective: Patient was seen and evaluated at bedside for demarcating superficial tissue loss on the dorsum of the right foot secondary to end-stage peripheral arterial disease. The patient is status post right lower extremity revascularization by Dr. Sanchez and is doing well. He was transferred to a regular floor from the ICU since I last seen him. He is much more verbal and conversational today than in previous examinations. He denies fever, chills, nausea, vomiting, diaphoresis, shortness of breath, chest pain at the time of my examination. Review of Systems: A 14 point review of systems was performed, and was found to be negative apart from the patient's complaints described above in the history of present illness. Objective Vital Signs and I&Os Vital Signs Date Time Temp Pulse Resp B/P B/P Pulse O2 O2 Flow FiO2 Mean Ox Delivery Rate 03/26 0650 97.4 55 20 132/80 98 Nasal 1.5L Cannula 03/26 0000 98 Nasal 1.0L Cannula 03/25 2230 97.9 71 22 160/98 98 Nasal 1.0L Cannula 03/25 1600 98 Nasal 1.0L Cannula 03/25 1600 97.8 52 20 118/62 98 Nasal 1.0L Cannula Intake & Output 03/26 1600 03/26 0800 03/26 0000 03/25 1600 03/25 0800 03/25 0000 Intake Total 200 120 600 120 120 Output Total 500 15 500 60 150 Balance -300 105 100 60 -30 Intake, IV 0 Intake, Oral 200 120 600 120 120 Number 1 0 0 0 Bowel Movements Output, Urine 500 15 500 60 150 Patient 179 lb 176 lb Weight Weight Bed scale Measurement Method Physical Exam: Neurovascular status is unchanged from my last examination, muscular skeletal exam is unchanged from my last examination. The demarcating bullous changes on the dorsum of the right foot are stable, with moderate serous drainage, no full- thickness ulceration, no malodor, no purulence, no erythema, no crepitus, no fluctuance. The tissue loss remains partial thickness, with large portions of dermis exposed, but no full-thickness ulceration. Current Medications: Current Medications Sig/Salome Start time Last Medication Dose Route Stop Time Status Admin Acetaminophen 650 MG ONCE ONE 03/255 DC 03/25 PO 03/25 2316 2350 Albuterol Sulfate See Dose Q4-6 PRN PRN 03/17 194 AC Insts (1) INH Ascorbic Acid 500 MG DAILY 03/18 09 AC 03/25 PO 0946 Aspirin Buffered 81 MG QAM 03/18 09 AC 03/25 PO 0945 Atorvastatin Calcium 20 MG 17003/24 1700 AC 03/25 PO 1608 Budesonide/ 2 PUF BID 03/17 2100 AC 03/25 Formoterol Fumarate INH 2113 Clopidogrel Bisulfate 75 MG DAILY 03/20 09 AC 03/25 PO 0946 Cyanocobalamin 1,000 MCG DAILY 03/18 09 AC 03/25 PO 0946 Digoxin 0.125 MG 17003/18 1700 AC 03/25 PO 1608 Ezetimibe 10 MG DAILY 03/18 0900 AC 03/25 PO 0946 Ferrous Sulfate 325 MG TID 03/17 2100 AC 03/25 PO 2112 Glycerin 2 SPRAY Q2P PRN 03/23 0500 AC 03/25 PO 0944 Heparin Sodium 5,000 UNIT Q8 03/22 2200 AC 03/26 (Porcine) SC 0540 Insulin Aspart 0 TIDAC 03/22 1700 AC 03/25 SC 1200 Insulin Detemir 4 UNITS QPM 03/22 2100 AC 03/25 SC 2113 Levothyroxine Sodium 0.025 MG DAILY AC 03/18 0700 AC 03/26 PO 0544 Omeprazole 40 MG DAILY AC 03/19 0837 AC 03/26 PO 0544 Polyethylene Glycol 17 GM DAILY 03/25 1100 AC 03/25 PO 1100 Senna/Docusate Sodium 2 TAB DAILY 03/25 1100 AC 03/25 PO 1100 Sertraline HCl 50 MG DAILY 03/18 0900 AC 03/25 PO 0946 Silver Sulfadiazine 1 TULIO DAILY 03/24 0900 AC 03/25 TOP 0946 Dose Instructions: (1)Albuterol Sulfate: 1-2 PUF Results Last 48 Hours of Labs: Laboratory Tests 03/26 03/25 0616 1300 Chemistry Sodium (137 - 145 mmol/L) 140 Potassium (3.5 - 5.1 mmol/L) 4.9 Chloride (98 - 107 mmol/L) 109 H Carbon Dioxide (22 - 30 mmol/L) 22 Anion Gap (5 - 16) 9 BUN (9 - 20 mg/dL) 90 H Creatinine (0.7 - 1.2 mg/dL) 1.8 H Estimated GFR (>60 ml/min) 38 L Glucose (65 - 99 mg/dL) 122 H Calcium (8.4 - 10.2 mg/dL) 8.4 Phosphorus (2.5 - 4.5 mg/dL) 4.9 H Magnesium (1.6 - 2.3 mg/dL) 2.6 H Total Bilirubin (0.2 - 1.3 mg/dL) 0.6 AST (17 - 59 U/L) 23 ALT (21 - 72 U/L) 53 Albumin (3.5 - 5.0 g/dL) 2.5 L Hematology CBC w Diff NO MAN DIFF REQ WBC (4.8 - 10.8 /CUMM) 14.7 H RBC (4.70 - 6.10 /CUMM) 3.02 L Hgb (14.0 - 18.0 G/DL) 8.9 L Hct (42 - 52 %) 27.5 L MCV (80.0 - 94.0 FL) 91.0 MCH (27.0 - 31.0 PG) 29.4 MCHC (33.0 - 37.0 G/DL) 32.3 L RDW (11.5 - 14.5 %) 21.4 H Plt Count (130 - 400 /CUMM) 146 MPV (7.4 - 10.4 FL) 8.5 Gran % (42.2 - 75.2 %) 88.9 H Lymphocytes % (20.5 - 51.1 %) 3.0 L Monocytes % (1.7 - 9.3 %) 7.2 Eosinophils % (0 - 5 %) 0.9 Basophils % (0.0 - 2.0 %) 0 Absolute Granulocytes (1.4 - 6.5 /CUMM) 13.1 H Absolute Lymphocytes (1.2 - 3.4 /CUMM) 0.4 L Absolute Monocytes (0.10 - 0.60 /CUMM) 1.1 H Absolute Eosinophils (0.0 - 0.7 /CUMM) 0.1 Absolute Basophils (0.0 - 0.2 /CUMM) 0 Retic Count (0.5 - 2.0 %) 1.86 Urines Urine Color (YEL,AMB,STR) YEL Urine Clarity (CLEAR) HAZY H Urine pH (5.0 - 8.0) 6.0 Ur Specific [place] (1.001 - 1.035) 1.020 Urine Protein (NEG,<30 MG/DL) TRACE H Urine Ketones (NEG) NEG Urine Nitrite (NEG) NEG Urine Bilirubin (NEG) NEG Urine Urobilinogen (0.1 - 1.0 EU/dl) 1.0 Ur Leukocyte Esterase (NEG) TRACE H Ur Microscopic SEDIMENT EXAMINED Urine RBC (0 - 5 /HPF) 50-75 H Urine WBC (0 - 2 /HPF) 1-3 H Ur Epithelial Cells (NONE,FEW) RARE Urine Bacteria (NEG/NONE) RARE H Hyaline Casts (0/LPF) RARE H Urine Mucus (FEW,NONE) RARE Urine Hemoglobin (NEG) LARGE H Urine Glucose (N MG/DL) NEG 03/25 0327 Chemistry Sodium (137 - 145 mmol/L) 143 Potassium (3.5 - 5.1 mmol/L) 5.1 Chloride (98 - 107 mmol/L) 111 H Carbon Dioxide (22 - 30 mmol/L) 20 L Anion Gap (5 - 16) 12 BUN (9 - 20 mg/dL) 89 H Creatinine (0.7 - 1.2 mg/dL) 2.2 H Estimated GFR (>60 ml/min) 30 L Glucose (65 - 99 mg/dL) 126 H Calcium (8.4 - 10.2 mg/dL) 8.6 Phosphorus (2.5 - 4.5 mg/dL) 5.4 H Magnesium (1.6 - 2.3 mg/dL) 2.6 H Iron (49 - 181 ug/dL) 27 L TIBC (261 - 462 ug/dL) 234 L Ferritin (17.9 - 464 ng/mL) 273.0 Total Bilirubin (0.2 - 1.3 mg/dL) 0.7 AST (17 - 59 U/L) 21 ALT (21 - 72 U/L) 63 Albumin (3.5 - 5.0 g/dL) 2.7 L Vitamin B12 (239 - 931 pg/mL) > 1000 H Folate (2.76 - 20.0 ng/mL) > 20.0 H Hematology CBC w Diff NO MAN DIFF REQ WBC (4.8 - 10.8 /CUMM) 15.8 H RBC (4.70 - 6.10 /CUMM) 3.08 L Hgb (14.0 - 18.0 G/DL) 9.0 L Hct (42 - 52 %) 28.2 L MCV (80.0 - 94.0 FL) 91.7 MCH (27.0 - 31.0 PG) 29.4 MCHC (33.0 - 37.0 G/DL) 32.0 L RDW (11.5 - 14.5 %) 21.8 H Plt Count (130 - 400 /CUMM) 140 MPV (7.4 - 10.4 FL) 8.6 Gran % (42.2 - 75.2 %) 88.4 H Lymphocytes % (20.5 - 51.1 %) 3.3 L Monocytes % (1.7 - 9.3 %) 7.9 Eosinophils % (0 - 5 %) 0.4 Basophils % (0.0 - 2.0 %) 0 Absolute Granulocytes (1.4 - 6.5 /CUMM) 14.0 H Absolute Lymphocytes (1.2 - 3.4 /CUMM) 0.5 L Absolute Monocytes (0.10 - 0.60 /CUMM) 1.2 H Absolute Eosinophils (0.0 - 0.7 /CUMM) 0.1 Absolute Basophils (0.0 - 0.2 /CUMM) 0 Assessment/Plan Assessment/Plan 67-year-old diabetic male with end-stage peripheral arterial disease status post right lower extremity revascularization with nearly demarcated superficial tissue loss on the dorsum of the right foot. Patient was seen and evaluated at bedside A Betadine dressing was applied to the dorsum of the right foot. I will reorder the Silvadene for daily use by the nursing staff for dressing changes over the weekend. Now that the patient is more alert and conversational, he consents to the Betadine treatment. From a podiatry standpoint, the patient is stable for transfer to her short-term rehabilitation facility. His tissue loss being superficial and noninfectious, he does not require any surgical intervention at this time. His foot exhibits no signs of acute infection, and I believe his leukocytosis to be reactive. I will follow up on this patient Thursday if he is still admitted. Core Measures Venous Thromboembolism VTE Risk Factors Age>40 No Mechanical VTE Prophylaxis d/t N/A MechProphylax Ordered No VTE Pharm Prophylaxis d/t NA PharmProphylax ordered
--- NOTE | 2018-03-26 11:30 | PN- Nephrology ---
Assessment/Plan Nephrology Assessment: GRECIA - Improved - likely 2/2 contrast +/- mild ATN from perioperative hypotensive insult. Looking back, FENa is always low and may represent chronic cardiorenal state. I think given pulm edema we can restart him on his home diuretics. Most recent UA with hematuria but likely 2/2 olson rather than GN (trace protein on this UA - has been variable before). Stage III CKD - baseline SCr in mid to high 1's - variably proteinuric - likely 2/2 hypertensive nephrosclerosis, chronic cardiorenal syndrome, and vascular disease. Anemia - Out of proportion to kidney disease. Has received 4U PRBC. Stool is guaic positive - GI following. Has functional iron deficiency in the setting of CKD. May benefit from starting iron therapy (IV would be reasonable). Hypernatremia - Resolved. PVD - s/p common femoral endarterectomy. Suggestion: -Restart 40mg PO lasix daily (home dose) -Ferrlecit 125mg every other day x8 doses - can hold off on AMOL for now Please call [phone] with ?'s Subjective Subjective: SCr 1.8 575cc UOP Feeling better although still with foot pain Breathing OK Objective Vital Signs and I&Os Vital Signs Date Time Temp Pulse Resp B/P B/P Pulse O2 O2 Flow FiO2 Mean Ox Delivery Rate 03/26 1102 Room Air Room Air 03/26 0650 97.4 55 20 132/80 98 Nasal 1.5L Cannula 03/26 0000 98 Nasal 1.0L Cannula 03/25 2230 97.9 71 22 160/98 98 Nasal 1.0L Cannula 03/25 1600 98 Nasal 1.0L Cannula 03/25 1600 97.8 52 20 118/62 98 Nasal 1.0L Cannula Intake & Output 03/26 1600 03/26 0400 03/25 1600 03/25 0400 03/24 1600 03/24 0400 Intake Total 200 120 936 024 5444 1600 Output Total 500 15 560 150 145 100 Balance -300 105 160 -30 875 1500 Intake, IV 0 300 Intake, Oral 200 120 720 905 579 2213 Number 1 0 0 0 0 Bowel Movements Output, Urine 500 15 560 150 145 100 Patient 179 lb 176 lb Weight Weight Bed scale Measurement Method Physical Exam: Gen - OK appearing HEENT - JVP up CV - RRR, no m/r/g Chest - R>L bibasilar crackles, no wheezes/rhonchi Abd - soft, NTND Ext - warm, no edema, s/p multiple toe amputations Neuro - AOX3, grossly nonfocal Current Medications: Current Medications Sig/Salome Start time Last Medication Dose Route Stop Time Status Admin Acetaminophen 650 MG ONCE ONE 03/25 2315 DC 03/25 PO 03/25 2316 2350 Albuterol Sulfate See Dose Q4-6 PRN PRN 03/17 1945 AC Insts (1) INH Ascorbic Acid 500 MG DAILY 03/18 0900 AC 03/26 PO 1043 Aspirin Buffered 81 MG QAM 03/18 0900 AC 03/26 PO 1044 Atorvastatin Calcium 20 MG 1700 03/24 1700 AC 03/25 PO 1608 Budesonide/ 2 PUF BID 03/17 2100 AC 03/26 Formoterol Fumarate INH 1045 Clopidogrel Bisulfate 75 MG DAILY 03/20 0900 AC 03/26 PO 1043 Cyanocobalamin 1,000 MCG DAILY 03/18 0900 AC 03/26 PO 1046 Digoxin 0.125 MG 1700 03/18 1700 AC 03/25 PO 1608 Ezetimibe 10 MG DAILY 03/18 0900 AC 03/26 PO 1043 Ferrous Sulfate 325 MG TID 03/17 2100 AC 03/26 PO 1044 Glycerin 2 SPRAY Q2P PRN 03/23 0500 AC 03/25 PO 0944 Heparin Sodium 5,000 UNIT Q8 03/22 2200 AC 03/26 (Porcine) SC 0540 Insulin Aspart 0 TIDAC 03/22 1700 AC 03/25 SC 1200 Insulin Detemir 4 UNITS QPM 03/22 2100 AC 03/25 SC 2113 Levothyroxine Sodium 0.025 MG DAILY AC 03/18 0700 AC 03/26 PO 0544 Omeprazole 40 MG DAILY AC 03/19 0837 AC 03/26 PO 0544 Polyethylene Glycol 17 GM DAILY 03/25 1100 AC 03/26 PO 1047 Senna/Docusate Sodium 2 TAB DAILY 03/25 1100 AC 03/25 PO 1100 Sertraline HCl 50 MG DAILY 03/18 0900 AC 03/26 PO 1043 Silver Sulfadiazine 1 TULIO DAILY 03/27 0900 TOP Silver Sulfadiazine 1 TULIO DAILY 03/24 0900 AC 03/25 TOP 0946 Dose Instructions: (1)Albuterol Sulfate: 1-2 PUF Results Pertinent Lab Results: Laboratory Tests 03/26 03/25 0616 1300 Chemistry Sodium (137 - 145 mmol/L) 140 Potassium (3.5 - 5.1 mmol/L) 4.9 Chloride (98 - 107 mmol/L) 109 H Carbon Dioxide (22 - 30 mmol/L) 22 Anion Gap (5 - 16) 9 BUN (9 - 20 mg/dL) 90 H Creatinine (0.7 - 1.2 mg/dL) 1.8 H Estimated GFR (>60 ml/min) 38 L Glucose (65 - 99 mg/dL) 122 H Calcium (8.4 - 10.2 mg/dL) 8.4 Phosphorus (2.5 - 4.5 mg/dL) 4.9 H Magnesium (1.6 - 2.3 mg/dL) 2.6 H Total Bilirubin (0.2 - 1.3 mg/dL) 0.6 AST (17 - 59 U/L) 23 ALT (21 - 72 U/L) 53 Albumin (3.5 - 5.0 g/dL) 2.5 L Hematology CBC w Diff NO MAN DIFF REQ WBC (4.8 - 10.8 /CUMM) 14.7 H RBC (4.70 - 6.10 /CUMM) 3.02 L Hgb (14.0 - 18.0 G/DL) 8.9 L Hct (42 - 52 %) 27.5 L MCV (80.0 - 94.0 FL) 91.0 MCH (27.0 - 31.0 PG) 29.4 MCHC (33.0 - 37.0 G/DL) 32.3 L RDW (11.5 - 14.5 %) 21.4 H Plt Count (130 - 400 /CUMM) 146 MPV (7.4 - 10.4 FL) 8.5 Gran % (42.2 - 75.2 %) 88.9 H Lymphocytes % (20.5 - 51.1 %) 3.0 L Monocytes % (1.7 - 9.3 %) 7.2 Eosinophils % (0 - 5 %) 0.9 Basophils % (0.0 - 2.0 %) 0 Absolute Granulocytes (1.4 - 6.5 /CUMM) 13.1 H Absolute Lymphocytes (1.2 - 3.4 /CUMM) 0.4 L Absolute Monocytes (0.10 - 0.60 /CUMM) 1.1 H Absolute Eosinophils (0.0 - 0.7 /CUMM) 0.1 Absolute Basophils (0.0 - 0.2 /CUMM) 0 Retic Count (0.5 - 2.0 %) 1.86 Urines Urine Color (YEL,AMB,STR) YEL Urine Clarity (CLEAR) HAZY H Urine pH (5.0 - 8.0) 6.0 Ur Specific [place] (1.001 - 1.035) 1.020 Urine Protein (NEG,<30 MG/DL) TRACE H Urine Ketones (NEG) NEG Urine Nitrite (NEG) NEG Urine Bilirubin (NEG) NEG Urine Urobilinogen (0.1 - 1.0 EU/dl) 1.0 Ur Leukocyte Esterase (NEG) TRACE H Ur Microscopic SEDIMENT EXAMINED Urine RBC (0 - 5 /HPF) 50-75 H Urine WBC (0 - 2 /HPF) 1-3 H Ur Epithelial Cells (NONE,FEW) RARE Urine Bacteria (NEG/NONE) RARE H Hyaline Casts (0/LPF) RARE H Urine Mucus (FEW,NONE) RARE Urine Hemoglobin (NEG) LARGE H Urine Glucose (N MG/DL) NEG 03/25 03/24 0327 UNK Chemistry Sodium (137 - 145 mmol/L) 143 Potassium (3.5 - 5.1 mmol/L) 5.1 Chloride (98 - 107 mmol/L) 111 H Carbon Dioxide (22 - 30 mmol/L) 20 L Anion Gap (5 - 16) 12 BUN (9 - 20 mg/dL) 89 H Creatinine (0.7 - 1.2 mg/dL) 2.2 H Estimated GFR (>60 ml/min) 30 L Glucose (65 - 99 mg/dL) 126 H Calcium (8.4 - 10.2 mg/dL) 8.6 Phosphorus (2.5 - 4.5 mg/dL) 5.4 H Magnesium (1.6 - 2.3 mg/dL) 2.6 H Iron (49 - 181 ug/dL) 27 L TIBC (261 - 462 ug/dL) 234 L Ferritin (17.9 - 464 ng/mL) 273.0 Total Bilirubin (0.2 - 1.3 mg/dL) 0.7 AST (17 - 59 U/L) 21 ALT (21 - 72 U/L) 63 Albumin (3.5 - 5.0 g/dL) 2.7 L Vitamin B12 (239 - 931 pg/mL) > 1000 H Folate (2.76 - 20.0 ng/mL) > 20.0 H Hematology CBC w Diff NO MAN DIFF REQ WBC (4.8 - 10.8 /CUMM) 15.8 H RBC (4.70 - 6.10 /CUMM) 3.08 L Hgb (14.0 - 18.0 G/DL) 9.0 L Hct (42 - 52 %) 28.2 L MCV (80.0 - 94.0 FL) 91.7 MCH (27.0 - 31.0 PG) 29.4 MCHC (33.0 - 37.0 G/DL) 32.0 L RDW (11.5 - 14.5 %) 21.8 H Plt Count (130 - 400 /CUMM) 140 MPV (7.4 - 10.4 FL) 8.6 Gran % (42.2 - 75.2 %) 88.4 H Lymphocytes % (20.5 - 51.1 %) 3.3 L Monocytes % (1.7 - 9.3 %) 7.9 Eosinophils % (0 - 5 %) 0.4 Basophils % (0.0 - 2.0 %) 0 Absolute Granulocytes (1.4 - 6.5 /CUMM) 14.0 H Absolute Lymphocytes (1.2 - 3.4 /CUMM) 0.5 L Absolute Monocytes (0.10 - 0.60 /CUMM) 1.2 H Absolute Eosinophils (0.0 - 0.7 /CUMM) 0.1 Absolute Basophils (0.0 - 0.2 /CUMM) 0 Urines Urine Osmolality (300 - 1000 MOSM/KG) 384 Ur Random Creatinine (mg/dL) 220.3 Ur Random Sodium (30 - 90 mmol/L) 7 L Ur Random Potassium (mmol/L) 28.8 Fraction Sodium Excret (<1% %) 0.0 03/24 0437 Chemistry Sodium (137 - 145 mmol/L) 144 Potassium (3.5 - 5.1 mmol/L) 4.8 Chloride (98 - 107 mmol/L) 111 H Carbon Dioxide (22 - 30 mmol/L) 22 Anion Gap (5 - 16) 11 BUN (9 - 20 mg/dL) 86 H Creatinine (0.7 - 1.2 mg/dL) 2.2 H Estimated GFR (>60 ml/min) 30 L Glucose (65 - 99 mg/dL) 175 H Calcium (8.4 - 10.2 mg/dL) 8.7 Phosphorus (2.5 - 4.5 mg/dL) 5.3 H Magnesium (1.6 - 2.3 mg/dL) 2.5 H Total Bilirubin (0.2 - 1.3 mg/dL) 0.6 AST (17 - 59 U/L) 25 ALT (21 - 72 U/L) 73 H Albumin (3.5 - 5.0 g/dL) 2.5 L Hematology CBC w Diff MAN DIFF ORDERED WBC (4.8 - 10.8 /CUMM) 16.4 H RBC (4.70 - 6.10 /CUMM) 2.99 L Hgb (14.0 - 18.0 G/DL) 8.7 L Hct (42 - 52 %) 27.5 L MCV (80.0 - 94.0 FL) 92.0 MCH (27.0 - 31.0 PG) 29.1 MCHC (33.0 - 37.0 G/DL) 31.6 L RDW (11.5 - 14.5 %) 21.5 H Plt Count (130 - 400 /CUMM) 140 MPV (7.4 - 10.4 FL) 8.0 Gran % (42.2 - 75.2 %) 88.2 H Lymphocytes % (20.5 - 51.1 %) 2.2 L Monocytes % (1.7 - 9.3 %) 9.2 Eosinophils % (0 - 5 %) 0.4 Basophils % (0.0 - 2.0 %) 0 Absolute Granulocytes (1.4 - 6.5 /CUMM) 14.5 H Segmented Neutrophils (42.2 - 75.2 %) 91 H Absolute Lymphocytes (1.2 - 3.4 /CUMM) 0.4 L Lymphocytes (20.5 - 51.1 %) 3 L Monocytes (1.7 - 9.3 %) 5 Absolute Monocytes (0.10 - 0.60 /CUMM) 1.5 H Absolute Eosinophils (0.0 - 0.7 /CUMM) 0.1 Basophils (0.0 - 2.0 %) 1 Absolute Basophils (0.0 - 0.2 /CUMM) 0 Platelet Estimate (ADEQUATE) ADEQUATE Polychromasia 1+ Hypochromic-Microcytic 1+ Poikilocytosis 1+ Ovalocytes 1+ Other Body Source Fld Total RBCs Counted (%) 100 Imaging/Other Studies: Chest X-ray 03/25 EXAM TYPE: RAD - XRY-PORTABLE CHEST XRAY EXAMINATION: XR PORTABLE CHEST CLINICAL INFORMATION: Evaluate for fluid overload. COMPARISON: Multiple chest x-rays most recent prior dated 03/24/2018 TECHNIQUE: Portable frontal view of the chest was obtained. FINDINGS: Moderate to severe cardiomegaly. Status post median sternotomy and CABG. Hazy prominence of the interstitial markings predominantly noted in the right lung consistent with asymmetric interstitial edema. Patchy opacity right perihilar region noted again. Small right and trace left effusion suspected. Assessment of the left lower lung is limited due to patient's body habitus. There is suggestion of left basilar opacity in the retrocardiac region. IMPRESSION: Stable cardiomegaly and interstitial edema, right greater than left. Slightly improved aeration noted in the left lung compared to the prior study. Persistent patchy airspace opacity right perihilar region. Superimposed pneumonia cannot be excluded. Stable small right and trace left pleural effusion. Stable retrocardiac opacity.
[2018-03-26 15:18] VITALS: BP 138/60
--- NOTE | 2018-03-26 17:44 | PN- Cardiology ---
Subjective Subjective: * No complaints. A bit confused. * BUN 90 with creatinine 1.8 Objective Vital Signs and I&Os Vital Signs Date Time Temp Pulse Resp B/P B/P Pulse O2 O2 Flow FiO2 Mean Ox Delivery Rate 03/26 1707 64 138/60 03/26 1518 97.9 66 24 138/60 95 Room Air 03/26 1102 Room Air Room Air 03/26 0800 95 Room Air Room Air 03/26 0650 97.4 55 20 132/80 98 Nasal 1.5L Cannula 03/26 0000 98 Nasal 1.0L Cannula 03/25 2230 97.9 71 22 160/98 98 Nasal 1.0L Cannula Intake & Output 03/26 1600 03/26 0800 03/26 0000 03/25 1600 03/25 0800 03/25 0000 Intake Total 450 200 120 600 120 120 Output Total 500 500 15 500 60 150 Balance -50 -300 105 100 60 -30 Intake, IV 100 0 Intake, Oral 350 200 120 600 120 120 Number 1 0 0 0 Bowel Movements Output, Urine 500 500 15 500 60 150 Patient 179 lb 176 lb Weight Weight Bed scale Measurement Method Physical Exam: General: WD/WN male in NAD; lethargic and confused HEENT: NC/AT, PERRL, EOMI Neck: no JVD, no carotid bruit Heart: RRR with 2/6 systolic murmur Lungs: clear bilaterally Abdomen: soft, NT, +ve bowel sounds Extremities: no edema with right leg bandaged, venous stasis changes bilaterally , toe amputations bilaterally Assessment/Plan Assessment/Plan * This patient has had a NSTEMI within the past six weeks. He also has renal insufficiency and hepatic insufficiency. As such, his surgical risk was increased but he nevertheless appears to be doing well following a right common femoral endarterectomy. He is confused. He may be uremic with high BUN. I would also check his TSH and free T4. * This patient may have anemia due to renal insuffciency however a prior workup disclosed an increased reticulocyte count instead of a low retic count that goes along better with bleeding than decreased production. Guaiac all stools and follow his H/H. * This patient had evidence of hepatic insufficiency likely related to RV dysfunction that has resolved. Restart a small dose of Atorvastatin at 20mg daily. * In consideration of this patient's poor EF he was seen by Dr. Botello who is inclined to pursue AICD placement with HIS bundle pacing if the patient agrees. He was asked to follow up with Dr. Botello as an outpatient when more stable. * A small dose of Coreg was tried with resultant bradycardia. This patient has tried beta blockers, ACEI and ARB's in the past with untoward side effects. I would stop his Coreg at this point in time and reconsider both beta zamzam and ACEI/ARB's if he receives a pacemaker which will protect him from bradycardia and help with his pre-renal state. Continue telemetry? Yes
[2018-03-27 01:39] VITALS: BP 128/64
[2018-03-27 06:30] VITALS: BP 122/64
[2018-03-27 07:43] LABS: ABSOLUTE BASOPHIL COUNT 0 /CUMM (0.0-0.2); ABSOLUTE EOSINOPHIL COUNT 0.1 /CUMM (0.0-0.7); ABSOLUTE GRANULOCYTE CT 14.1 /CUMM (1.4-6.5); ABSOLUTE LYMPH COUNT 0.4 /CUMM (1.2-3.4); ABSOLUTE MONOCYTE COUNT 1.3 /CUMM (0.10-0.60); BASOPHIL % 0 % (0.0-2.0); EOSINOPHIL % 0.5 % (0-5); GRANULOCYTE % 88.8 % (42.2-75.2); MEAN CORPUSCULAR HGB 29.3 PG (27.0-31.0); MEAN CORPUSCULAR HGB CONC 32.3 G/DL (33.0-37.0); MEAN CORPUSCULAR VOLUME 90.8 FL (80.0-94.0); MEAN PLATELET VOLUME 8.1 FL (7.4-10.4); PLATELET COUNT 191 /CUMM (130-400); RBC DISTRIBUTION WIDTH 22.2 % (11.5-14.5); RED BLOOD CELL CT 3.08 /CUMM (4.70-6.10)
[2018-03-27 09:19] LABS: WHITE BLOOD CELL COUNT 15.9 /CUMM (4.8-10.8)
--- NOTE | 2018-03-27 09:49 | PN- Housestaff ---
See Addendum Subjective Follow-up For: Peripheral vascular disease status post right femoral endarterectomy Intractable lower limb pain [improved] post procedure Multiple digit amputation Reduced ejection fraction of 20-30% Oliguria GRECIA on CKD Pulmonary edema Subjective: Was seen and examined this morning, no overnight events, vital signs are stable. Patient offered no complaints. Wound was change this morning by the nursing staff. Review of Systems Constitutional: Reports: no symptoms. Objective Last 24 Hrs of Vital Signs/I&O Vital Signs Date Time Temp Pulse Resp B/P B/P Pulse O2 O2 Flow FiO2 Mean Ox Delivery Rate 03/27 0630 98.1 68 20 122/64 94 03/27 0139 97.4 74 20 128/64 97 Room Air 03/26 1707 64 138/60 03/26 1600 Room Air 03/26 1518 97.9 66 24 138/60 95 Room Air Intake & Output 03/27 1600 03/27 0800 03/27 0000 Intake Total 200 360 Output Total 550 1500 Balance -350 -1140 Intake, Oral 200 360 Number 1 Bowel Movements Output, Urine 550 1500 Patient 83.121 kg Weight Physical Exam General Appearance: Alert, Cooperative, No Acute Distress, ORIANTED TO PLACE AND PERSON Skin: No Rashes Skin Temp/Moisture Exam: Warm/Dry HEENT: Atraumatic, PERRLA, EOMI, Mucous Membr. moist/pink Neck: Supple Cardiovascular: Regular Rate, Normal S1, Normal S2, No Murmurs Lungs: Clear to Auscultation, Normal Air Movement Abdomen: Normal Bowel Sounds, Soft, No Tenderness, No Hepatospenomegaly, No Masses Neurological: Normal Speech, Strength at 5/5 X4 Ext, Normal Tone, Sensation Intact, Cranial Nerves 3-12 NL, Reflexes 2+ Extremities: No Clubbing, No Cyanosis, No Edema, Normal Pulses, No Tenderness/ Swelling Assessment/Plan Assessment: Mr. Almanzar is a 67-year-old male with PMH of aortic stenosis, CAD s/p CABG (2016), CHF (last Echo 03/20/2018 that showed anterior wall hypokinesis and normal diastolic part in and reduced ejection fraction of 20-30% significant decrease from previous echo 3 months ago, Hypertension, hyperlipidemia, NSTEMI, PVD, urinary incontinence, CKD, and chronic osteomyelities w/ toes amputation who presented to [facility] with complains of progressive worsening right lower leg pain. PatienMr. Almanzar is a 67-year-old male with PMH of aortic stenosis, CAD s/p CABG (08/2017), CHF (last Echo 03/20/2018 that showed anterior wall hypokinesis and normal diastolic part in and reduced ejection fraction of 20-30% significant decrease from previous echo 3 months ago, Hypertension, hyperlipidemia, NSTEMI, PVD, urinary incontinence, CKD, and chronic osteomyelities w/ toes amputation who presented to [facility] with complains of progressive worsening right lower leg pain. Patient was found to have significant blood supply compromise to the right leg with pain at rest and extensive right common artery disease extending into the profunda. Problem list 1. Severe stenosis in the proximal superficial femoral artery status post endarterectomy on 03/22/18 2. GRECIA on CKD 3. Transaminitis 4. Anemia 5. History of PVD 6. History of Hypertension, Hyperlipidemia 7. Hypothyroidism On March 22 the patient was taken to the OR for common femoral artery endarterectomy and post procedure the patient was transferred to the intensive care unit for observation. There was no significant decrease in H&H postprocedure. The patient required 4 units of blood transfusion prior to the procedure with the recommendation by retail reset merchandiser to have had a H&H of 08/01 before procedure. His H&H has continued to remain stable post procedure. 0n 03/25 patient was transferred to telemetry, he was started on carvedilol while on the ICU which resulted in bradycardia. He was transferred to telemetry for close monitoring of his heart rate. Heart failure with reduced ejection fraction * Ejection fraction of 20-30% reduced from 40-45% on echo from December 2017. Patient status post recent NSTEMI within last 6 weeks. * No plans for AICD placement at this time given the fact that his ejection fraction to be affected by the recent MRI, will continue to follow echocardiogram for improvement of ejection fraction. Dr. Botello and Dr. English on board. * No plans for Entresto because of kidney function. * Patient is off beta zamzam and ACEI/ARB's because of bradycardia. * Patient continue to be in normal sinus rhythm with 60-70 heart rate. * GRECIA on CKD stage III * Baseline creatinine 1.5-1.7 * Nephrology consultation was obtained * GRECIA likely due to contrast prior to admission for angiography peripheral vascular disease * Lasix was on hold, he started yesterday on home dose by mouth * Creatinine improved from 2.3 to 1.5 * Patient is diuresing well on the last 24 hour output -1490 Severe stenosis in the proximal superficial femoral artery status post endarterectomy on 03/22/18 * Vascular and podiatry on board * Patient is perfusing well, normal capillary refill, right lower extremity warm to touch * Leukocytosis mostly active, no signs of infection * Silvadene for daily use by the nursing staff for dressing changes over the weekend * No indication for surgical intervention at this time as tissue was is superficial and not infectious * Continue aspirin and Plavix Hypothyroidism * Synthroid 25 MCG * Repeated TSH 5.56, free T4 1 0.27, total T3 0.55 * Consider increase Synthroid dose to 50 MCG given elevated TSH Diabetes mellitus * Patient is on insulin sliding scale low-dose and Levemir 4 units every afternoon. * Patient had high readings yesterday in 400 and was given 6 units of insulin aspirt, blood sugar dropped to 89. This morning blood sugar is 225 * We'll increase sliding scale to medium dose, continue Levemir 4 units every afternoon Anemia * Most likely due to chronic kidney disease stage III B. * H&H has remained stable status post 4 units transfusion for right femoral artery endarterectomy. * Iron studies are suggestive for iron deficiency anemia. * Patient was started on ferric gluconate 8 doses per nephrology consultation. * Continue ferrous sulfate 325 mg 3 times a day. Transaminitis (resolved) * On presentation had ALT of 324 which improved and is back to normal on March 25 at 63. Problem List: 1. Peripheral vascular disease Pain Ratin Pain Location: right foot Pain Goal: Pain 4 or less Pain Plan: see medication Tomorrow's Labs & Rationales: BEP
--- NOTE | 2018-03-27 12:43 | PN- Vascular Surgery ---
Surgical Brief Attending Note Brief Attending Note: pt seen and examined. s/p right common femoral endarterectomy. foot wwp. strong signal in pt. dressing in place. wbc 15 today -ok for discharge from vascular perspective when medically appropriate -continue wound care per podiatry -asa/plavx
[2018-03-27 14:00] VITALS: BP 138/70
[2018-03-27 21:52] VITALS: BP 124/72
--- NOTE | 2018-03-28 01:18 | Event Note ---
Event Note Event Note: S: I was paged that patient having nosebleeding. Patient reported that he had intermittent epistaxis since yesterday and he had episodes in the past. B:67-year-old male with PMH of aortic stenosis, CAD s/p CABG (08/2017), CHF ( last Echo 03/20/2018 that showed anterior wall hypokinesis and normal diastolic part in and reduced ejection fraction of 20-30% significant decrease from previous echo 3 months ago, HTN, HLD, NSTEMI, PVD, urinary incontinence, CKD, and chronic osteomyelities w/ toes amputation who presented to [facility] with complains of progressive worsening right lower leg pain. A/P: I went to see the patient. He was hemodynamically stable. He is bleeding from left nostril and initially we tried ice and externally pressure but his bleeding didn't stop. Later on anterior nasal packing was done with Rhino Rocket soaked in oxymetazoline solution. We will get ENT consult for further evaluation and if patient continues to bleed and possible cauterization. We will check his hemoglobin in a.m as he had one episode blood mixed in stool. We will start keflex 250mg Q6 for TSS prophylaxis. Later on after the removel of packing bacitracin oitment can be used.
[2018-03-28 06:30] VITALS: BP 118/70
[2018-03-28 08:28] LABS: ABSOLUTE BASOPHIL COUNT 0 /CUMM (0.0-0.2); ABSOLUTE EOSINOPHIL COUNT 0.1 /CUMM (0.0-0.7); ABSOLUTE GRANULOCYTE CT 12.8 /CUMM (1.4-6.5); ABSOLUTE LYMPH COUNT 0.6 /CUMM (1.2-3.4); ABSOLUTE MONOCYTE COUNT 1.1 /CUMM (0.10-0.60); BASOPHIL % 0.1 % (0.0-2.0); EOSINOPHIL % 0.6 % (0-5); GRANULOCYTE % 87.7 % (42.2-75.2); MEAN CORPUSCULAR HGB 29.5 PG (27.0-31.0); MEAN CORPUSCULAR HGB CONC 32.9 G/DL (33.0-37.0); MEAN CORPUSCULAR VOLUME 89.7 FL (80.0-94.0); PLATELET COUNT 211 /CUMM (130-400); RBC DISTRIBUTION WIDTH 21.5 % (11.5-14.5); RED BLOOD CELL CT 2.56 /CUMM (4.70-6.10); WHITE BLOOD CELL COUNT 14.6 /CUMM (4.8-10.8)
--- NOTE | 2018-03-28 08:30 | PN- Housestaff ---
Bal BROWN,[place] 03/28/18 0829: Subjective Follow-up For: Peripheral vascular disease status post right femoral endarterectomy Intractable lower limb pain [improved] post procedure Multiple digit amputation Reduced ejection fraction of 20-30% Oliguria GRECIA on CKD Pulmonary edema Tele-Events Since Last Visit: Normal sinus rhythm, first-degree heart block, 0.18, bundle branch block Subjective: The patient was seen and examined, denies any complaints, had an episode of epistaxis last night and his epistaxis was controlled with anterior nasal packing with Rockets soaked in dexamethasone solution. She was a started on Keflex 250 mg every 6 for TSS prophylaxis. Epistaxis is controlled, wound VAC in place Review of Systems Constitutional: Reports: see HPI. Objective Last 24 Hrs of Vital Signs/I&O Vital Signs Date Time Temp Pulse Resp B/P B/P Pulse O2 O2 Flow FiO2 Mean Ox Delivery Rate 03/28 0630 98.0 64 22 118/70 94 03/27 2152 98.2 68 124/72 94 Room Air 03/27 1700 70 138/70 03/27 1400 97.8 70 20 138/70 95 Room Air Intake & Output 03/28 1600 03/28 0800 03/28 0000 Intake Total 240 400 Output Total 1000 750 Balance -760 -350 Intake, Oral 240 400 Number 1 Bowel Movements Output, Urine 1000 750 Patient 180 lb Weight Weight Bed scale Measurement Method Physical Exam General Appearance: Alert, Cooperative, No Acute Distress Cardiovascular: Normal S1, Normal S2 Lungs: Clear to Auscultation Abdomen: Normal Bowel Sounds, Soft, No Tenderness Extremities: WOUND VAC IN PLACE, DRESSING CHANGED BY NURSING, YELLOWISH DISCOLOURATION BETWEEN 1 AND 2 TOES, Assessment/Plan Assessment: Mr. Almanzar is a 67-year-old male with PMH of aortic stenosis, CAD s/p CABG (2016), CHF (last Echo 03/20/2018 that showed anterior wall hypokinesis and normal diastolic part in and reduced ejection fraction of 20-30% significant decrease from previous echo 3 months ago, Hypertension, hyperlipidemia, NSTEMI, PVD, urinary incontinence, CKD, and chronic osteomyelities w/ toes amputation who presented to [facility] with complains of progressive worsening right lower leg pain. PatienMr. Almanzar is a 67-year-old male with PMH of aortic stenosis, CAD s/p CABG (08/2017), CHF (last Echo 03/20/2018 that showed anterior wall hypokinesis and normal diastolic part in and reduced ejection fraction of 20-30% significant decrease from previous echo 3 months ago, Hypertension, hyperlipidemia, NSTEMI, PVD, urinary incontinence, CKD, and chronic osteomyelities w/ toes amputation who presented to [facility] with complains of progressive worsening right lower leg pain. Patient was found to have significant blood supply compromise to the right leg with pain at rest and extensive right common artery disease extending into the profunda. Problem list 1. Severe stenosis in the proximal superficial femoral artery status post endarterectomy on 03/22/18 2. GRECIA on CKD 3. Transaminitis 4. Anemia 5. History of PVD 6. History of Hypertension, Hyperlipidemia 7. Hypothyroidism On March 22 the patient was taken to the OR for common femoral artery endarterectomy and post procedure the patient was transferred to the intensive care unit for observation. There was no significant decrease in H&H postprocedure. The patient required 4 units of blood transfusion prior to the procedure with the recommendation by production planning supervisor to have had a H&H of 08/01 before procedure. His H&H has continued to remain stable post procedure. 0n 03/25 patient was transferred to telemetry, he was started on carvedilol while on the ICU which resulted in bradycardia. He was transferred to telemetry for close monitoring of his heart rate. Heart failure with reduced ejection fraction * Ejection fraction of 20-30% reduced from 40-45% on echo from December 2017. Patient status post recent NSTEMI within last 6 weeks. * No plans for AICD placement at this time given the fact that his ejection fraction to be affected by the recent MRI, will continue to follow echocardiogram for improvement of ejection fraction. Dr. Botello and Dr. English on board. * No plans for Entresto because of kidney function. * Patient is off beta zamzam and ACEI/ARB's because of bradycardia. * Patient continue to be in normal sinus rhythm with 60-70 heart rate. * GRECIA on CKD stage III Creatinine today is 1.2 at baseline Continue to follow up on nephrology recommendation * GRECIA likely due to contrast prior to admission for angiography peripheral vascular disease * Continue home dose of Lasix * Patient is diuresing well on the last 24 hour output -760 Severe stenosis in the proximal superficial femoral artery status post endarterectomy on 03/22/18 * Vascular and podiatry on board * Patient is perfusing well, normal capillary refill, right lower extremity warm to touch * Leukocytosis mostly active, no signs of infection * Silvadene for daily use by the nursing staff for dressing changes over the weekend * No indication for surgical intervention at this time as tissue was is superficial and not infectious * Continue aspirin and Plavix Hypothyroidism * Synthroid 25 MCG * Repeated TSH 5.56, free T4 1 0.27, total T3 0.55 * Consider increase Synthroid dose to 50 MCG given elevated TSH Diabetes mellitus * Patient is on insulin sliding scale low-dose and Levemir 4 units every afternoon. * Patient had high readings yesterday in 400 and was given 6 units of insulin aspirt, blood sugar dropped to 89. This morning blood sugar is 126 * We'll increase sliding scale to medium dose, continue Levemir 4 units every afternoon Anemia * Worsening anemia secondary to epistaxis and GI bleed Transfuse 1 unit of PRBCs * Iron studies are suggestive for iron deficiency anemia. * Patient was started on ferric gluconate 8 doses per nephrology consultation. * Continue ferrous sulfate 325 mg 3 times a day. Transaminitis (resolved) * On presentation had ALT of 324 which improved and is back to normal on March 25 at 63. Problem List: 1. Peripheral vascular disease 2. Renal insufficiency Pain Ratin Pain Location: RIGHT HIP Pain Goal: Pain 4 or less Pain Plan: PATHWAY Tomorrow's Labs & Rationales: CBC BEP Sharan Montelongo MD 03/28/18 1504: Attending MD Review Statement Attending Statement Attending MD Statement: examined this patient, discuss w/resident/PA/STAGECRAFT TEACHER, agreed w/resident/PA/STAGECRAFT TEACHER, reviewed EMR data (avail) Attending Assessment/Plan: Episode of epistaxis with anterior packing today, followed by melena. Hgb dropped from 9 to 7.9. Creatinine improved to 1.2. Patient is fatigued and mildly confused. Vitals stable. Plan - Continue on telemetry - Transfuse 1 unit pRBC - Monitor CBC - If epistaxis continues would notify ENT - Monitor renal function - Follow cardiology, GI, podiatry, vascular recommendations - Will require AICD as outpatient - Hold ASA and Plavix per cardiology - Continue remaining home medications - DVT PPx
--- NOTE | 2018-03-28 10:35 | PN- Podiatry ---
Subjective Subjective: 67-year-old diabetic male with end-stage peripheral arterial disease is seen and evaluated at bedside for demarcating tissue loss on the dorsum of the right foot. The patient is seen and evaluated in no apparent distress, with an interval NG tube placement since I last seen him. His vitals are stable and he is afebrile. It was reported to me by the primary team prior to my arrival today that he has a new onset bullous change at the distal stump medially on the right foot. Review of Systems: A 14 point review of systems was performed, and was found to be negative apart from the patient's complaints described above in the history of present illness. Objective Vital Signs and I&Os Vital Signs Date Time Temp Pulse Resp B/P B/P Pulse O2 O2 Flow FiO2 Mean Ox Delivery Rate 03/28 0630 98.0 64 22 118/70 94 03/27 2152 98.2 68 124/72 94 Room Air 03/27 1700 70 138/70 03/27 1400 97.8 70 20 138/70 95 Room Air Intake & Output 03/28 1600 03/28 0800 03/28 0000 03/27 1600 03/27 0800 03/27 0000 Intake Total 240 400 480 200 360 Output Total 8091 388 5496 550 1500 Balance -760 -350 -520 -350 -1140 Intake, Oral 240 400 480 200 360 Number 1 2 1 Bowel Movements Output, Urine 4997 348 3524 550 1500 Patient 180 lb 183 lb Weight Weight Bed scale Measurement Method Physical Exam: Patient's neurovascular exam and musculoskeletal exam are unchanged. The demarcating large bulla on the dorsum of the right foot has become a dry eschar extending from the dorsum of the remaining fifth digit across approximately 80% of the dorsum of the forefoot and midfoot lateral to medial. On the medial aspect of this eschar and distal aspect of this eschar there are new serous bullae with some exposed dermis, and a small amount of liquefactive necrosis of subcutaneous fat. There remains no deep tissue exposure, no erythema, no purulence, no crepitus, no fluctuance, and a slight malodor consistent with a dry eschar. Current Medications: Current Medications Sig/Salome Start time Last Medication Dose Route Stop Time Status Admin Acetaminophen 650 MG ONCE ONE 03/27 2315 DC PO 03/27 2316 Albuterol Sulfate See Dose Q4-6 PRN PRN 06/13 1945 AC Insts (1) INH Ascorbic Acid 500 MG DAILY 03/18 0900 AC 03/28 PO 0835 Aspirin Buffered 81 MG QAM 03/18 0900 AC 03/28 PO 0835 Atorvastatin Calcium 20 MG 1700 03/24 1700 AC 03/27 PO 1700 Budesonide/ 2 PUF BID 03/17 2100 AC 03/28 Formoterol Fumarate INH 0835 Cephalexin 250 MG Q6 03/28 0600 AC 03/28 PO 03/29 0559 0625 Cephalexin 250 MG Q6 03/28 0129 DC PO 03/29 0128 Clopidogrel Bisulfate 75 MG DAILY 03/20 0900 AC 03/28 PO 0835 Cyanocobalamin 1,000 MCG DAILY 03/18 0900 AC 03/28 PO 0836 Digoxin 0.125 MG 1700 03/18 1700 AC 03/27 PO 1700 Ezetimibe 10 MG DAILY 03/18 0900 AC 03/28 PO 0835 Ferric Sodium 125 MG Q48 03/26 1200 AC 03/28 Gluconate Complex IV 04/09 1005 0914 Sodium Chloride 100 ML Ferrous Sulfate 325 MG TID 03/17 2100 AC 03/28 PO 0834 Furosemide 40 MG DAILY 03/26 1327 AC 03/28 PO 0835 Glycerin 2 SPRAY Q2P PRN 03/23 0500 AC 03/25 PO 0944 Heparin Sodium 5,000 UNIT Q8 03/22 2200 AC 03/27 (Porcine) DC 1334 Insulin Aspart 0 TIDAC 03/27 1700 AC 03/27 DC 1843 Insulin Aspart 0 TIDAC 03/22 1700 ID 03/27 DC 0807 Insulin Detemir 4 UNITS QPM 03/22 2100 03/27 SC 2212 Levothyroxine Sodium 0.025 MG DAILY AC 03/18 0700 AC 03/28 PO 0626 Omeprazole 40 MG DAILY AC 03/19 0837 AC 03/28 PO 0625 Oxycodone/ 1 TAB ONCE ONE 03/28 0130 DC 03/28 Acetaminophen PO 03/28 0131 0134 Oxymetazoline HCl 2 SPRAY ONCE ONE 03/28 0145 DC MIKHAIL 03/28 0146 Polyethylene Glycol 17 GM DAILY 03/25 1100 AC 03/26 PO 1047 Senna/Docusate Sodium 2 TAB DAILY 03/25 1100 AC 03/27 PO 0846 Sertraline HCl 50 MG DAILY 03/18 0900 AC 03/28 PO 0834 Silver Sulfadiazine 1 TULIO DAILY 03/27 09 AC 03/28 TOP 0843 Silver Sulfadiazine 1 TULIO DAILY 03/24 09 AC 03/28 TOP 0843 Dose Instructions: (1)Albuterol Sulfate: 1-2 PUF Results Last 48 Hours of Labs: Laboratory Tests 03/28 625 Chemistry Sodium (137 - 145 mmol/L) 141 Potassium (3.5 - 5.1 mmol/L) 4.8 Chloride (98 - 107 mmol/L) 110 H Carbon Dioxide (22 - 30 mmol/L) 23 Anion Gap (5 - 16) 8 BUN (9 - 20 mg/dL) 63 H Creatinine (0.7 - 1.2 mg/dL) 1.2 Estimated GFR (>60 ml/min) > 60 BUN/Creatinine Ratio (7 - 25 %) 52.5 H Hematology CBC w Diff MAN DIFF ORDERED WBC (4.8 - 10.8 /CUMM) 14.6 H RBC (4.70 - 6.10 /CUMM) 2.56 L Hgb (14.0 - 18.0 G/DL) 7.5 L Hct (42 - 52 %) 23.0 L MCV (80.0 - 94.0 FL) 89.7 MCH (27.0 - 31.0 PG) 29.5 MCHC (33.0 - 37.0 G/DL) 32.9 L RDW (11.5 - 14.5 %) 21.5 H Plt Count (130 - 400 /CUMM) 211 MPV (7.4 - 10.4 FL) 8.0 Gran % (42.2 - 75.2 %) 87.7 H Lymphocytes % (20.5 - 51.1 %) 4.0 L Monocytes % (1.7 - 9.3 %) 7.6 Eosinophils % (0 - 5 %) 0.6 Basophils % (0.0 - 2.0 %) 0.1 Absolute Granulocytes (1.4 - 6.5 /CUMM) 12.8 H Absolute Lymphocytes (1.2 - 3.4 /CUMM) 0.6 L Absolute Monocytes (0.10 - 0.60 /CUMM) 1.1 H Absolute Eosinophils (0.0 - 0.7 /CUMM) 0.1 Absolute Basophils (0.0 - 0.2 /CUMM) 0 Platelet Estimate (ADEQUATE) VERIFIED BY SMEAR Polychromasia 1+ Poikilocytosis 1+ Basophilic Stippling 1+ Anisocytosis 1+ Ovalocytes 1+ 03/27 0608 Chemistry Sodium (137 - 145 mmol/L) 141 Potassium (3.5 - 5.1 mmol/L) 4.8 Chloride (98 - 107 mmol/L) 110 H Carbon Dioxide (22 - 30 mmol/L) 23 Anion Gap (5 - 16) 8 BUN (9 - 20 mg/dL) 75 H Creatinine (0.7 - 1.2 mg/dL) 1.5 H Estimated GFR (>60 ml/min) 47 L BUN/Creatinine Ratio (7 - 25 %) 50.0 H Free T4 (0.78 - 2.44 ng/dL) 1.27 Total T3 (0.97 - 1.69 ng/mL) 0.55 L TSH &T3 &Free T4 Intrp (0.27 - 4.20 uIU/mL) 5.560 H Hematology CBC w Diff NO MAN DIFF REQ WBC (4.8 - 10.8 /CUMM) 15.9 H RBC (4.70 - 6.10 /CUMM) 3.08 L Hgb (14.0 - 18.0 G/DL) 9.0 L Hct (42 - 52 %) 28.0 L MCV (80.0 - 94.0 FL) 90.8 MCH (27.0 - 31.0 PG) 29.3 MCHC (33.0 - 37.0 G/DL) 32.3 L RDW (11.5 - 14.5 %) 22.2 H Plt Count (130 - 400 /CUMM) 191 MPV (7.4 - 10.4 FL) 8.1 Gran % (42.2 - 75.2 %) 88.8 H Lymphocytes % (20.5 - 51.1 %) 2.7 L Monocytes % (1.7 - 9.3 %) 8.0 Eosinophils % (0 - 5 %) 0.5 Basophils % (0.0 - 2.0 %) 0 Absolute Granulocytes (1.4 - 6.5 /CUMM) 14.1 H Absolute Lymphocytes (1.2 - 3.4 /CUMM) 0.4 L Absolute Monocytes (0.10 - 0.60 /CUMM) 1.3 H Absolute Eosinophils (0.0 - 0.7 /CUMM) 0.1 Absolute Basophils (0.0 - 0.2 /CUMM) 0 Assessment/Plan Assessment/Plan 67-year-old diabetic male with peripheral arterial disease and demarcating superficial tissue loss secondary to peripheral arterial disease status post revascularization. The patient was seen and evaluated at bedside A Betadine soaked gauze dressing was placed on the right foot, and Betadine paint was applied to the small eschars on the distal aspect of the leg. While his persistent white count is somewhat concerning, it is consistent with a reactive leukocytosis of demarcating tissue loss, and this remains my primary diagnosis. If the patient demonstrates other signs of systemic inflammatory response or becomes febrile, I will reconsider treating for an infection. We will discontinue the Silvadene, and switch to a Betadine soaked gauze wrap daily, with Betadine paint to the stabilized eschars on the leg every other day or when necessary. I strongly recommend based on the patient's comorbidities that he be placed in short-term rehabilitation facility, as he will have a very difficult time caring for this type of wound at home. I will follow up on this patient daily as the superficial tissue loss demarcates , and formulate final recommendations upon anticipation of his discharge. I may be reached for further consultation and concerns at [phone] Core Measures Venous Thromboembolism VTE Risk Factors Age>40 No Mechanical VTE Prophylaxis d/t N/A MechProphylax Ordered No VTE Pharm Prophylaxis d/t NA PharmProphylax ordered
[2018-03-28 11:09] VITALS: BP 112/40
--- NOTE | 2018-03-28 11:53 | Event Note ---
See Addendum Event Note Event Note: Situation: The patient had an episode of melena with blood clots in stool. The patient had multiple episodes of epistaxis last night and he had anterior nasal packing which controlled his bleeding. The patient denied any dizziness or chest pain, Blood pressure 112/40, pulse 67, his H&H dropped from 9-7.5 today Ordered repeat CBCs, PT/INR We will transfuse 1 unit of PRBCs, will give 2 wide pore IV lines I called vascular surgery Dr. Sanchez over the phone who agreed to discontinue his aspirin, Plavix, heparin, patient was also started on pantoprazole 40 mg twice daily daily I also consulted GI and ENT to get their input regarding his bleeding Cardiology Dr. Francis is also on board and he recommended:
--- NOTE | 2018-03-28 12:08 | PN- Cardiology ---
Subjective Subjective: The patient was noted to have an episode of melena with blood clots noted in stool. He also had multiple episodes of epistaxis overnight. Anterior nasal packing has been placed to control the epistaxis. No chest pain. No shortness of breath. No palpitations. No lightheadedness or dizziness. No nausea or vomiting. Objective Vital Signs and I&Os Vital Signs Date Time Temp Pulse Resp B/P B/P Pulse O2 O2 Flow FiO2 Mean Ox Delivery Rate 03/28 1109 67 112/40 03/28 0630 98.0 64 22 118/70 94 03/27 2152 98.2 68 124/72 94 Room Air 03/27 1700 70 138/70 03/27 1400 97.8 70 20 138/70 95 Room Air Intake & Output 03/28 1600 03/28 0800 03/28 0000 03/27 1600 03/27 0800 03/27 0000 Intake Total 240 400 480 200 360 Output Total 5572 363 2247 550 1500 Balance -760 -350 -520 -350 -1140 Intake, Oral 240 400 480 200 360 Number 1 2 1 Bowel Movements Output, Urine 1571 724 1724 550 1500 Patient 180 lb 183 lb Weight Weight Bed scale Measurement Method Physical Exam: Gen: NAD HEENT: normal Lungs: clear to auscultation, normal resp. effort Heart: RRR, S1, S2, 2/6 systolic murmur Abdomen: Soft, nontender, no masses Extremities: No clubbing, cyanosis, or edema. Neuro: Alert and oriented x 3, cranial nerves intact Current Medications: Current Medications Sig/Salome Start time Last Medication Dose Route Stop Time Status Admin Acetaminophen 650 MG ONCE ONE 03/275 DC PO 03/27 2316 Albuterol Sulfate See Dose Q4-6 PRN PRN 03/17 1945 AC Insts (1) INH Ascorbic Acid 500 MG DAILY 03/18 09 AC 03/28 PO 0835 Aspirin Buffered 81 MG QAM 03/18 09 DC 03/28 PO 0835 Atorvastatin Calcium 20 MG 1700 03/24 1700 AC 03/27 PO 1700 Budesonide/ 2 PUF BID 03/17 2100 AC 03/28 Formoterol Fumarate INH 0835 Cephalexin 250 MG Q6 03/28 0600 AC 03/28 PO 03/29 0559 0625 Cephalexin 250 MG Q6 03/28 0129 DC PO 03/29 0128 Clopidogrel Bisulfate 75 MG DAILY 03/20 0900 DC 03/28 PO 0835 Cyanocobalamin 1,000 MCG DAILY 03/18 0900 AC 03/28 PO 0836 Digoxin 0.125 MG 1700 03/18 1700 AC 03/27 PO 1700 Ezetimibe 10 MG DAILY 03/18 0900 AC 03/28 PO 0835 Ferric Sodium 125 MG Q48 03/26 1200 AC 03/28 Gluconate Complex IV 04/09 1005 0914 Sodium Chloride 100 ML Ferrous Sulfate 325 MG TID 03/17 2100 AC 03/28 PO 0834 Furosemide 40 MG DAILY 03/26 1327 AC 03/28 PO 0835 Glycerin 2 SPRAY Q2P PRN 03/23 0500 AC 03/25 PO 0944 Heparin Sodium 5,000 UNIT Q8 03/22 2200 DC 03/27 (Porcine) SC 1334 Insulin Aspart 0 TIDAC 03/27 1700 AC 03/27 SC 1843 Insulin Detemir 4 UNITS QPM 03/22 2100 AC 03/27 SC 2212 Levothyroxine Sodium 0.025 MG DAILY AC 03/18 0700 AC 03/28 PO 0626 Omeprazole 40 MG DAILY AC 03/19 0837 DC 03/28 PO 0625 Oxycodone/ 1 TAB ONCE ONE 03/28 0130 DC 03/28 Acetaminophen PO 03/28 0131 0134 Oxymetazoline HCl 2 SPRAY ONCE ONE 03/28 0145 DC MIKHAIL 03/28 0146 Pantoprazole Sodium 40 MG BID 03/28 1131 AC IV Polyethylene Glycol 17 GM DAILY 03/25 1100 AC 03/26 PO 1047 Povidone Iodine 1 TULIO DAILY 03/29 0900 TOP Senna/Docusate Sodium 2 TAB DAILY 03/25 1100 AC 03/27 PO 0846 Sertraline HCl 50 MG DAILY 03/18 0900 AC 03/28 PO 0834 Silver Sulfadiazine 1 TULIO DAILY 03/27 0900 DC 03/28 TOP 0843 Silver Sulfadiazine 1 TULIO DAILY 03/24 09 DC 03/28 TOP 0843 Dose Instructions: (1)Albuterol Sulfate: 1-2 PUF Results Last 48 Hrs of Labs/Mics: Laboratory Tests 03/28/18 0625: Anion Gap 8, Estimated GFR > 60, BUN/Creatinine Ratio 52.5 H, CBC w Diff MAN DIFF ORDERED, RBC 2.56 L, MCV 89.7, MCH 29.5, MCHC 32.9 L, RDW 21.5 H, MPV 8.0, Gran % 87.7 H, Lymphocytes % 4.0 L, Monocytes % 7.6, Eosinophils % 0.6, Basophils % 0.1, Absolute Granulocytes 12.8 H, Absolute Lymphocytes 0.6 L, Absolute Monocytes 1.1 H, Absolute Eosinophils 0.1, Absolute Basophils 0, Platelet Estimate VERIFIED BY SMEAR, Polychromasia 1+, Poikilocytosis 1+, Basophilic Stippling 1+, Anisocytosis 1+, Ovalocytes 1+ 03/27/18 0608: Anion Gap 8, Estimated GFR 47 L, BUN/Creatinine Ratio 50.0 H, Free T4 1.27, Total T3 0.55 L, TSH &T3 &Free T4 Intrp 5.560 H, CBC w Diff NO MAN DIFF REQ, RBC 3.08 L, MCV 90.8, MCH 29.3, MCHC 32.3 L, RDW 22.2 H, MPV 8.1, Gran % 88.8 H, Lymphocytes % 2.7 L, Monocytes % 8.0, Eosinophils % 0.5, Basophils % 0, Absolute Granulocytes 14.1 H, Absolute Lymphocytes 0.4 L, Absolute Monocytes 1.3 H, Absolute Eosinophils 0.1, Absolute Basophils 0 Assessment/Plan Assessment/Plan Assessment: 1. Coronary artery disease 2. Chronic HFrEF, LVEF 2030% 3. Status post right common femoral endarterectomy 4. GI bleed 5. Epistaxis 6. Anemia secondary to acute blood loss Plan: * Would hold aspirin and Plavix until GI bleed and epistaxis are controlled * Continue other cardiac medications Continue telemetry? Yes
[2018-03-28 12:50] LABS: ABSOLUTE BASOPHIL COUNT 0 /CUMM (0.0-0.2); ABSOLUTE EOSINOPHIL COUNT 0.1 /CUMM (0.0-0.7); ABSOLUTE GRANULOCYTE CT 13.6 /CUMM (1.4-6.5); ABSOLUTE LYMPH COUNT 0.5 /CUMM (1.2-3.4); ABSOLUTE MONOCYTE COUNT 0.8 /CUMM (0.10-0.60); BASOPHIL % 0.1 % (0.0-2.0); EOSINOPHIL % 0.7 % (0-5); GRANULOCYTE % 90.5 % (42.2-75.2); MEAN CORPUSCULAR HGB 29.7 PG (27.0-31.0); MEAN CORPUSCULAR HGB CONC 32.8 G/DL (33.0-37.0); MEAN CORPUSCULAR VOLUME 90.5 FL (80.0-94.0); MEAN PLATELET VOLUME 7.8 FL (7.4-10.4); PLATELET COUNT 229 /CUMM (130-400); RBC DISTRIBUTION WIDTH 21.6 % (11.5-14.5); RED BLOOD CELL CT 2.65 /CUMM (4.70-6.10)
[2018-03-28 12:57] LABS: PT 16.8 SEC (9.4-12.5)
[2018-03-28 14:00] VITALS: BP 110/60
--- NOTE | 2018-03-28 14:25 | Cons- Gastroenterology ---
General Information and HPI Consulting Request Date of Consult: 03/28/18 Requested By: Tien Hidalgo MD Reason for Consult: 1. Epistaxis 2. Melena 3. Acute Blood Loss Anemia 4. Chronic use anticoagulation Source of Information: patient, Electronic Medical Record Exam Limitations: no limitations History of Present Illness: Mr. Almanzar is a 67 year old male with a PMH of aortic stenosis, CAD s/p CABG (), CHF, hypertension, hyperlipidemia, TONY, NSTEMI, PVD, CKD, and chronic osteomyelities w/ toe amputations who underwent femoral endarterectomy for peripheral vascular disease and was subsequently placed on anticoagulation with aspirin, Plavix, and heparin. Last night the patient developed epistaxis and was seen by ENT and had nasal packing placed. Further patient had a drop in his H/H from 9.0/28 to 7.5/23. This morning I was called after patient had large-volume melenic stools with associated clots. Patient was seen at the beginning of this admission by my partner Dr. Ruy Powell in anticipation of anticoagulation in the setting of a hemoccult positive stool. Patient was on chronic iron for TONY that made his stool dark, but he was without black tarry, sticky stool. Patient had a chronic anemia has been worked up extensively with a negative EGD and colonoscopy (no diverticuli noted, ? suboptimal preparation) in September of 2017. He also had a pill cam a few months ago which showed a non-bleeding AVM in the jejunum, but no active bleeding. Patient reports that he had large volume epistaxis and that blood was "pouring out of his nose" and that it was also going "downd the back of his throat." He had a similar experience after CABG. He had large volume epistaxis requiring nasal packing which was then followed by melenic stools and closts. he has had no further melenic stools since this morning. He has had no nausea, vomiting or abdominal pain. He denies chronic GERD. He has eaten both breakfast and lunch without difficulty. Allergies/Medications Allergies: Coded Allergies: No Known Allergies (11/13/17) Home Med List: Albuterol Sulfate (Ventolin Hfa) 90 MCG HFA.AER.AD 1-2 PUF INH AD PRN COPD ( Reported) Ascorbate Calcium (Vitamin C) 500 MG TABLET 500 MG PO QAM SUPPLEMENT ( Reported) Aspirin (Ecotrin*) 81 MG TABLET.DR 1 TAB PO QAM HEART/BLOOD (Reported) Atorvastatin Calcium 80 MG TABLET 1 TAB PO DAILY PVD (Reported) Budesonide/Formoterol Fumarate (Symbicort 160-4.5 Mcg Inhaler) 160 MCG-4.5 MCG/ ACTUATION HFA.AER.AD 2 PUF INH BID BREATHING PROBLEMS (Reported) Clopidogrel Bisulfate (Plavix) 75 MG TABLET 1 TAB PO DAILY BLOOD THINNER ( Reported) Cyanocobalamin (Vitamin B-12) 1,000 MCG TABLET 1 TAB PO DAILY SUPPLEMENT ( Reported) Digoxin (Lanoxin) 125 MCG TABLET 0.125 MG PO 1700 HFrEF . Ergocalciferol (Vitamin D2) (Vitamin D2) 50,000 UNIT CAPSULE 1 TAB PO QSUN SUPPLEMENT (Reported) Ezetimibe (Zetia) 10 MG TABLET 10 MG PO DAILY CHOLESTEROL (Reported) Ferrous Sulfate 325 MG (65 MG IRON) TABLET 1 TAB PO TID IRON, VITAMIN ( Reported) Fish Oil/Dha/Epa (Fish Oil 1,200 MG Fish Oil) 1,200 MG-144 MG-216 MG CAPSULE 1 CAP PO DAILY SUPPLEMENT (Reported) Furosemide (Lasix) 40 MG TABLET 1 TAB PO DAILY CHF Please take as prescribed and follow up with your doctor. Insulin Glargine,Hum.rec.anlog (Lantus Solostar) 100 UNIT/ML (3 ML) INSULN.PEN 4 UNIT SC QPM dm (Reported) Levothyroxine Sodium (Synthroid) 25 MCG TABLET 0.025 MG PO DAILY AC HYPOTHYROIDISM . Oxycodone HCl/Acetaminophen (Percocet 7.5-325 MG Tablet) 7.5 MG-325 MG TABLET 1 TAB PO BID PAIN (Reported) Sertraline HCl 50 MG TABLET 50 MG PO DAILY DEPRESSION (Reported) Sitagliptin Phosphate (Januvia) 100 MG TABLET 1 TAB PO DAILY DIABETES ( Reported) Current Medications: Current Medications Sig/Salome Start time Last Medication Dose Route Stop Time Status Admin Acetaminophen 650 MG ONCE ONE 03/27 2315 DC PO 03/27 2316 Albuterol Sulfate See Dose Q4-6 PRN PRN 03/17 1945 AC Insts (1) INH Ascorbic Acid 500 MG DAILY 03/18 09 AC 03/28 PO 08 Aspirin Buffered 81 MG QAM 03/18 0900 DC 03/28 PO 0835 Atorvastatin Calcium 20 MG 1700 03/24 1700 AC 03/27 PO 1700 Budesonide/ 2 PUF BID 03/17 2100 AC 03/28 Formoterol Fumarate INH 0835 Cephalexin 250 MG Q6 03/28 0600 AC 03/28 PO 03/29 0559 1223 Cephalexin 250 MG Q6 03/28 0129 DC PO 03/29 0128 Clopidogrel Bisulfate 75 MG DAILY 03/20 0900 DC 03/28 PO 0835 Cyanocobalamin 1,000 MCG DAILY 03/18 0900 AC 03/28 PO 0836 Digoxin 0.125 MG 1700 03/18 1700 AC 03/27 PO 1700 Ezetimibe 10 MG DAILY 03/18 0900 AC 03/28 PO 0835 Ferric Sodium 125 MG Q48 03/26 1200 AC 03/28 Gluconate Complex IV 04/09 1005 0914 Sodium Chloride 100 ML Ferrous Sulfate 325 MG TID 03/17 2100 AC 03/28 PO 1310 Furosemide 40 MG DAILY 03/26 1327 AC 03/28 PO 0835 Glycerin 2 SPRAY Q2P PRN 03/23 0500 AC 03/25 PO 0944 Heparin Sodium 5,000 UNIT Q8 03/22 2200 DC 03/27 (Porcine) SC 1334 Insulin Aspart 0 TIDAC 03/27 1700 AC 03/28 SC 1222 Insulin Detemir 4 UNITS QPM 03/22 2100 AC 03/27 SC 2212 Levothyroxine Sodium 0.025 MG DAILY AC 03/18 0700 AC 03/28 PO 0626 Omeprazole 40 MG DAILY AC 03/19 0837 DC 03/28 PO 0625 Oxycodone/ 1 TAB ONCE ONE 03/28 0130 DC 03/28 Acetaminophen PO 03/28 0131 0134 Oxymetazoline HCl 2 SPRAY ONCE ONE 03/28 0145 DC MIKHAIL 03/28 0146 Pantoprazole Sodium 40 MG BID 03/28 1131 AC 03/28 IV 1236 Polyethylene Glycol 17 GM DAILY 03/25 1100 AC 03/26 PO 1047 Povidone Iodine 1 TULIO DAILY 03/29 09 TOP Senna/Docusate Sodium 2 TAB DAILY 03/25 1100 AC 03/27 PO 0846 Sertraline HCl 50 MG DAILY 03/18 0900 AC 03/28 PO 0834 Silver Sulfadiazine 1 TULIO DAILY 03/27 0900 DC 03/28 TOP 0843 Silver Sulfadiazine 1 TULIO DAILY 03/24 0900 DC 03/28 TOP 0843 Dose Instructions: (1)Albuterol Sulfate: 1-2 PUF Past History Travel History Traveled to [place] past 21 day No Medical History Blood Transfusion Hx: Yes Neurological: GAIT ABDNORMALITY WEAKNESS EENT: NONE Cardiovascular: aortic stenosis, CAD, CHF, hypertension, hyperlipidemia, NSTEMI, PVD Respiratory: NONE Gastrointestinal: appt for pill cam cancelled for today due to ED visit gi bleed Hepatic: NONE Renal: urinary incontinence, CKD Musculoskeletal: CHRONIC OSTEOMYLITIS LFT FOOT- TOES AMP X5 RGHT FOOT- TOES AMP X4 Psychiatric: depression Endocrine: diabetes Blood Disorders: anemia with occ tranfusions Cancer(s): NONE RAYON WINDER/Reproductive: NONE Other Medical Hx: aneursym in left groin Surgical History Surgical History: CABG, hernia repair-umbilical, right shoulddr sx aVR bypass of the left (fem/pop) leg? amputation of 9 toes PTCA ESWL by Dr[address] Ledesma toe amputations bilaterally aortic valve, LE stents Family History Relations & Conditions If Any: FATHER (CAD). , Age 40-50; Cause: CAD (coronary artery disease). MOTHER (Pancreatic cancer). BROTHER (HTN). Psychosocial History Who Do You Live With? spouse Services at Home: Nursing Primary Language: Setswana Smoking Status: Former Smoker ETOH Use: denies use Illicit Drug Use: denies illicit drug use Functional Ability ADLs Independent: dressing, eating, toileting, bathing. Ambulation: independent IADLs Independent: shopping, housework, finances, food prep, telephone, transportation , medication admin. Review of Systems Review of Systems Constitutional: Denies: fever, malaise, weakness. EENTM: Reports: epistaxis. Cardiovascular: Reports: no symptoms. Respiratory: Reports: no symptoms. GI: Reports: melena. Denies: abdominal pain, bloating, nausea, vomiting. Genitourinary: Reports: no symptoms. Musculoskeletal: Reports: no symptoms. Skin: Reports: no symptoms. Neurological/Psychological: Reports: no symptoms. Hematologic/Endocrine: Reports: no symptoms. Exam & Diagnostic Data Vital Signs and I&O Vital Signs Date Time Temp Pulse Resp B/P B/P Pulse O2 O2 Flow FiO2 Mean Ox Delivery Rate 03/28 1109 67 112/40 03/28 0630 98.0 64 22 118/70 94 03/27 2152 98.2 68 124/72 94 Room Air 03/27 1700 70 138/70 Intake & Output 03/28 1600 03/28 0400 03/27 0400 03/26 0400 Intake Total 240 400 680 360 650 120 Output Total 2400 858 7956 1500 1000 15 Balance -760 -350 -870 -1140 -350 105 Intake, IV 100 Intake, Oral 240 400 680 360 550 120 Number 1 3 1 Bowel Movements Output, Urine 1620 270 1919 1500 1000 15 Patient 180 lb 183 lb 179 lb Weight Weight Bed scale Measurement Method Physical Exam General Appearance: no apparent distress, alert Head: atraumatic Eyes: Bilateral: normal appearance. Ears, Nose, Throat: packing in left nares Neck: normal inspection, supple Respiratory: lungs clear Cardiovascular: regular rate/rhythm, systolic murmur Gastrointestinal: normal bowel sounds, soft, non-tender, no organomegaly Extremities: no edema Neurologic/Psych: awake, alert, oriented x 3 Cranial Nerves: cranial nerves II-XII grossly intact Skin: warm/dry Results Pertinent Lab Results: Laboratory Tests 03/28 1210 Coagulation PT (9.4 - 12.5 SEC) 16.8 H INR (0.90 - 1.17) 1.53 H Hematology CBC w Diff MAN DIFF ORDERED WBC (4.8 - 10.8 /CUMM) 15.0 H RBC (4.70 - 6.10 /CUMM) 2.65 L Hgb (14.0 - 18.0 G/DL) 7.9 L Hct (42 - 52 %) 24.0 L MCV (80.0 - 94.0 FL) 90.5 MCH (27.0 - 31.0 PG) 29.7 MCHC (33.0 - 37.0 G/DL) 32.8 L RDW (11.5 - 14.5 %) 21.6 H Plt Count (130 - 400 /CUMM) 229 MPV (7.4 - 10.4 FL) 7.8 Gran % (42.2 - 75.2 %) 90.5 H Lymphocytes % (20.5 - 51.1 %) 3.1 L Monocytes % (1.7 - 9.3 %) 5.6 Eosinophils % (0 - 5 %) 0.7 Basophils % (0.0 - 2.0 %) 0.1 Absolute Granulocytes (1.4 - 6.5 /CUMM) 13.6 H Absolute Lymphocytes (1.2 - 3.4 /CUMM) 0.5 L Absolute Monocytes (0.10 - 0.60 /CUMM) 0.8 H Absolute Eosinophils (0.0 - 0.7 /CUMM) 0.1 Absolute Basophils (0.0 - 0.2 /CUMM) 0 Platelet Estimate (ADEQUATE) VERIFIED BY SMEAR Anisocytosis + 03/28 0625 Chemistry Sodium (137 - 145 mmol/L) 141 Potassium (3.5 - 5.1 mmol/L) 4.8 Chloride (98 - 107 mmol/L) 110 H Carbon Dioxide (22 - 30 mmol/L) 23 Anion Gap (5 - 16) 8 BUN (9 - 20 mg/dL) 63 H Creatinine (0.7 - 1.2 mg/dL) 1.2 Estimated GFR (>60 ml/min) > 60 BUN/Creatinine Ratio (7 - 25 %) 52.5 H Hematology CBC w Diff MAN DIFF ORDERED WBC (4.8 - 10.8 /CUMM) 14.6 H RBC (4.70 - 6.10 /CUMM) 2.56 L Hgb (14.0 - 18.0 G/DL) 7.5 L Hct (42 - 52 %) 23.0 L MCV (80.0 - 94.0 FL) 89.7 MCH (27.0 - 31.0 PG) 29.5 MCHC (33.0 - 37.0 G/DL) 32.9 L RDW (11.5 - 14.5 %) 21.5 H Plt Count (130 - 400 /CUMM) 211 MPV (7.4 - 10.4 FL) 8.0 Gran % (42.2 - 75.2 %) 87.7 H Lymphocytes % (20.5 - 51.1 %) 4.0 L Monocytes % (1.7 - 9.3 %) 7.6 Eosinophils % (0 - 5 %) 0.6 Basophils % (0.0 - 2.0 %) 0.1 Absolute Granulocytes (1.4 - 6.5 /CUMM) 12.8 H Absolute Lymphocytes (1.2 - 3.4 /CUMM) 0.6 L Absolute Monocytes (0.10 - 0.60 /CUMM) 1.1 H Absolute Eosinophils (0.0 - 0.7 /CUMM) 0.1 Absolute Basophils (0.0 - 0.2 /CUMM) 0 Platelet Estimate (ADEQUATE) VERIFIED BY SMEAR Polychromasia 1+ Poikilocytosis 1+ Basophilic Stippling 1+ Anisocytosis 1+ Ovalocytes 1+ 03/27 0608 Chemistry Sodium (137 - 145 mmol/L) 141 Potassium (3.5 - 5.1 mmol/L) 4.8 Chloride (98 - 107 mmol/L) 110 H Carbon Dioxide (22 - 30 mmol/L) 23 Anion Gap (5 - 16) 8 BUN (9 - 20 mg/dL) 75 H Creatinine (0.7 - 1.2 mg/dL) 1.5 H Estimated GFR (>60 ml/min) 47 L BUN/Creatinine Ratio (7 - 25 %) 50.0 H Free T4 (0.78 - 2.44 ng/dL) 1.27 Total T3 (0.97 - 1.69 ng/mL) 0.55 L TSH &T3 &Free T4 Intrp (0.27 - 4.20 uIU/mL) 5.560 H Hematology CBC w Diff NO MAN DIFF REQ WBC (4.8 - 10.8 /CUMM) 15.9 H RBC (4.70 - 6.10 /CUMM) 3.08 L Hgb (14.0 - 18.0 G/DL) 9.0 L Hct (42 - 52 %) 28.0 L MCV (80.0 - 94.0 FL) 90.8 MCH (27.0 - 31.0 PG) 29.3 MCHC (33.0 - 37.0 G/DL) 32.3 L RDW (11.5 - 14.5 %) 22.2 H Plt Count (130 - 400 /CUMM) 191 MPV (7.4 - 10.4 FL) 8.1 Gran % (42.2 - 75.2 %) 88.8 H Lymphocytes % (20.5 - 51.1 %) 2.7 L Monocytes % (1.7 - 9.3 %) 8.0 Eosinophils % (0 - 5 %) 0.5 Basophils % (0.0 - 2.0 %) 0 Absolute Granulocytes (1.4 - 6.5 /CUMM) 14.1 H Absolute Lymphocytes (1.2 - 3.4 /CUMM) 0.4 L Absolute Monocytes (0.10 - 0.60 /CUMM) 1.3 H Absolute Eosinophils (0.0 - 0.7 /CUMM) 0.1 Absolute Basophils (0.0 - 0.2 /CUMM) 0 03/26 0616 Chemistry Sodium (137 - 145 mmol/L) 140 Potassium (3.5 - 5.1 mmol/L) 4.9 Chloride (98 - 107 mmol/L) 109 H Carbon Dioxide (22 - 30 mmol/L) 22 Anion Gap (5 - 16) 9 BUN (9 - 20 mg/dL) 90 H Creatinine (0.7 - 1.2 mg/dL) 1.8 H Estimated GFR (>60 ml/min) 38 L Glucose (65 - 99 mg/dL) 122 H Calcium (8.4 - 10.2 mg/dL) 8.4 Phosphorus (2.5 - 4.5 mg/dL) 4.9 H Magnesium (1.6 - 2.3 mg/dL) 2.6 H Total Bilirubin (0.2 - 1.3 mg/dL) 0.6 AST (17 - 59 U/L) 23 ALT (21 - 72 U/L) 53 Albumin (3.5 - 5.0 g/dL) 2.5 L Hematology CBC w Diff NO MAN DIFF REQ WBC (4.8 - 10.8 /CUMM) 14.7 H RBC (4.70 - 6.10 /CUMM) 3.02 L Hgb (14.0 - 18.0 G/DL) 8.9 L Hct (42 - 52 %) 27.5 L MCV (80.0 - 94.0 FL) 91.0 MCH (27.0 - 31.0 PG) 29.4 MCHC (33.0 - 37.0 G/DL) 32.3 L RDW (11.5 - 14.5 %) 21.4 H Plt Count (130 - 400 /CUMM) 146 MPV (7.4 - 10.4 FL) 8.5 Gran % (42.2 - 75.2 %) 88.9 H Lymphocytes % (20.5 - 51.1 %) 3.0 L Monocytes % (1.7 - 9.3 %) 7.2 Eosinophils % (0 - 5 %) 0.9 Basophils % (0.0 - 2.0 %) 0 Absolute Granulocytes (1.4 - 6.5 /CUMM) 13.1 H Absolute Lymphocytes (1.2 - 3.4 /CUMM) 0.4 L Absolute Monocytes (0.10 - 0.60 /CUMM) 1.1 H Absolute Eosinophils (0.0 - 0.7 /CUMM) 0.1 Absolute Basophils (0.0 - 0.2 /CUMM) 0 Retic Count (0.5 - 2.0 %) 1.86 Assessment/Plan Assessment/Recommendations: ASSESSMENT: 1. Epistaxis 2. Chronic iron deficiency anemia 3. 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 Melena -- likely swallowed blood due to epistaxis. 5. Acute blood loss anemia due to #1. 6. Anticoagulation after femoral endarterectomy RECOMMENDATIONS: 1. Protonix 40 mg IV twice daily 2. 2 large-bore IV 3. Serial H&H 4. Consult ENT regarding stability of nasal packing 5. Transfuse as needed 6. Hold anti-coagulation and anti-thrombotic agents if ok with cardioogy and vascular surgery 7. NPO after midnight 8. EGD tomorrow Consult Acknowledgment - Thank you for your consult request.
[2018-03-28 20:26] LABS: ABSOLUTE BASOPHIL COUNT 0 /CUMM (0.0-0.2); ABSOLUTE EOSINOPHIL COUNT 0.2 /CUMM (0.0-0.7); ABSOLUTE GRANULOCYTE CT 15.9 /CUMM (1.4-6.5); ABSOLUTE LYMPH COUNT 0.6 /CUMM (1.2-3.4); ABSOLUTE MONOCYTE COUNT 1.3 /CUMM (0.10-0.60); BASOPHIL % 0 % (0.0-2.0); EOSINOPHIL % 1.1 % (0-5); GRANULOCYTE % 88.7 % (42.2-75.2); HEMATOCRIT 27.1 % (42-52); MEAN CORPUSCULAR HGB 29.4 PG (27.0-31.0); MEAN CORPUSCULAR HGB CONC 32.6 G/DL (33.0-37.0); MEAN CORPUSCULAR VOLUME 90.1 FL (80.0-94.0); MEAN PLATELET VOLUME 7.7 FL (7.4-10.4); PLATELET COUNT 240 /CUMM (130-400); RBC DISTRIBUTION WIDTH 20.5 % (11.5-14.5); WHITE BLOOD CELL COUNT 17.9 /CUMM (4.8-10.8)
[2018-03-28 22:05] VITALS: BP 120/70
[2018-03-29 06:55] VITALS: BP 124/70
--- NOTE | 2018-03-29 07:28 | PN- Housestaff ---
aBl BROWN,[place] 03/29/18 0728: Subjective Follow-up For: Peripheral vascular disease status post right femoral endarterectomy Epistaxis, melena, hematuria intractable lower limb pain [improved] post procedure Multiple digit amputation Reduced ejection fraction of 20-30% Oliguria GRECIA on CKD improve Pulmonary edema Tele-Events Since Last Visit: Normal sinus rhythm, heartrate 73, no overnight events Subjective: The patient was seen and examined, still has had anterior nasal packing, would be going today to EGD, n.p.o. since midnight Review of Systems Constitutional: Reports: see HPI. Objective Last 24 Hrs of Vital Signs/I&O Vital Signs Date Time Temp Pulse Resp B/P B/P Pulse O2 O2 Flow FiO2 Mean Ox Delivery Rate 03/29 0655 99.0 74 18 124/70 94 Room Air 03/29 0000 Room Air 03/28 2205 98.5 72 20 120/70 95 Room Air 03/28 1715 71 110/60 03/28 1400 98.1 71 20 110/60 96 03/28 1109 67 112/40 Intake & Output 03/29 1600 03/29 0800 03/29 0000 Intake Total Output Total 900 Balance -900 Output, Urine 900 Patient 175 lb Weight Weight Bed scale Measurement Method Physical Exam General Appearance: Alert, Cooperative, No Acute Distress HEENT: Atraumatic, PERRLA, EOMI, NASAL PACK IN PLACE Cardiovascular: Normal S1, Normal S2, No Murmurs Lungs: Clear to Auscultation Abdomen: Normal Bowel Sounds, Soft, No Tenderness Neurological: Normal Speech, Strength at 5/5 X4 Ext, Normal Tone, Sensation Intact Extremities: No Clubbing, No Cyanosis, No Edema Assessment/Plan Assessment: Mr. Almanzar is a 67-year-old male with PMH of aortic stenosis, CAD s/p CABG (2016), CHF (last Echo 03/20/2018 that showed anterior wall hypokinesis and normal diastolic part in and reduced ejection fraction of 20-30% significant decrease from previous echo 3 months ago, Hypertension, hyperlipidemia, NSTEMI, PVD, urinary incontinence, CKD, and chronic osteomyelities w/ toes amputation who presented to [facility] with complains of progressive worsening right lower leg pain. PatienMr. Almanzar is a 67-year-old male with PMH of aortic stenosis, CAD s/p CABG (08/2017), CHF (last Echo 03/20/2018 that showed anterior wall hypokinesis and normal diastolic part in and reduced ejection fraction of 20-30% significant decrease from previous echo 3 months ago, Hypertension, hyperlipidemia, NSTEMI, PVD, urinary incontinence, CKD, and chronic osteomyelities w/ toes amputation who presented to [facility] with complains of progressive worsening right lower leg pain. Patient was found to have significant blood supply compromise to the right leg with pain at rest and extensive right common artery disease extending into the profunda. Problem list 1. Severe stenosis in the proximal superficial femoral artery status post endarterectomy on 03/22/18 2. GRECIA on CKD 3. Transaminitis 4. Anemia 5. History of PVD 6. History of Hypertension, Hyperlipidemia 7. Hypothyroidism On March 22 the patient was taken to the OR for common femoral artery endarterectomy and post procedure the patient was transferred to the intensive care unit for observation. There was no significant decrease in H&H postprocedure. The patient required 4 units of blood transfusion prior to the procedure with the recommendation by jewelry designer to have had a H&H of 08/01 before procedure. His H&H has continued to remain stable post procedure. 0n 03/25 patient was transferred to telemetry, he was started on carvedilol while on the ICU which resulted in bradycardia. He was transferred to telemetry for close monitoring of his heart rate. Epistaxis: His H&H dropped yesterday, received 1 unit of PRBCs, his H&H is a stable posttransfusion Patient has history of epistaxis with nasal cauterization in the past Holding aspirin, Plavix, subcu heparin ENT consult appreciated Continue nasal packing and Keflex for TSS prophylaxis for now Plan is to remove the VAC on or Thursday To avoid straining and trauma after unpacking and he was nasal saline spray Melena: Patient had an episode of melena with blood clots yesterday It can be possibly due to severe epistaxis he had the night before GI consult recommended EGD today N.p.o. for the procedure Continue to hold aspirin, Plavix, heparin Continue IV Protonix twice daily Heart failure with reduced ejection fraction * Ejection fraction of 20-30% reduced from 40-45% on echo from December 2017. Patient status post recent NSTEMI within last 6 weeks. * No plans for AICD placement at this time given the fact that his ejection fraction to be affected by the recent MRI, will continue to follow echocardiogram for improvement of ejection fraction. Dr. Botello and Dr. English on board. * No plans for Entresto because of kidney function. * Patient is off beta zamzam and ACEI/ARB's because of bradycardia. * Patient continue to be in normal sinus rhythm with 60-70 heart rate. GRECIA on CKD stage III Creatinine today is 1.2 at baseline Continue to follow up on nephrology recommendation * GRECIA likely due to contrast prior to admission for angiography peripheral vascular disease * Continue home dose of Lasix * Patient is diuresing well on the last 24 hour output -760 Severe stenosis in the proximal superficial femoral artery status post endarterectomy on 03/22/18 * Vascular and podiatry on board * Patient is perfusing well, normal capillary refill, right lower extremity warm to touch * Leukocytosis mostly active, no signs of infection * Silvadene for daily use by the nursing staff for dressing changes over the weekend * No indication for surgical intervention at this time as tissue was is superficial and not infectious * Continue aspirin and Plavix Hypothyroidism * Synthroid 25 MCG * Repeated TSH 5.56, free T4 1 0.27, total T3 0.55 * Consider increase Synthroid dose to 50 MCG given elevated TSH Diabetes mellitus * Patient is on insulin sliding scale low-dose and Levemir 4 units every afternoon. * Patient had high readings yesterday in 400 and was given 6 units of insulin aspirt, blood sugar dropped to 89. This morning blood sugar is 126 * We'll increase sliding scale to medium dose, continue Levemir 4 units every afternoon Anemia * Worsening anemia secondary to epistaxis and GI bleed Transfuse 1 unit of PRBCs * Iron studies are suggestive for iron deficiency anemia. * Patient was started on ferric gluconate 8 doses per nephrology consultation. * Continue ferrous sulfate 325 mg 3 times a day. Transaminitis (resolved) * On presentation had ALT of 324 which improved and is back to normal on March 25 at 63. Leukocytosis: WBC trending up It can be secondary to lower extremity wound infection however podiatry think this leukocytosis is reactive ID consult appreciated Patient is full code DVT prophylaxis with Alps Consistent carbohydrate diet (currently n.p.o. for EGD) Problem List: 1. Peripheral vascular disease 2. Melena Pain Ratin Pain Location: n/aa Pain Goal: Remain pain free Pain Plan: PATHWAY Tomorrow's Labs & Rationales: CBC BEP Tien Hidalgo 03/29/18 1131: Attending MD Review Statement Attending Statement Attending MD Statement: examined this patient, discuss w/resident/PA/HOT WATER HEATER INSTALLER, agreed w/resident/PA/HOT WATER HEATER INSTALLER, discussed with family, reviewed EMR data (avail), discussed with nursing, discussed with case mgmt, reviewed images, amended to note Attending Assessment/Plan: Patient initally admitted to ICU and transferred to telemetry. Patient had long complictaed stay s/p right sided femoral endarterectomy after limb pain from ischemia. Patient is high surgical risk considering his severe depressed heart funtion and heart failure. He also has h/o CKD. Patient received multiple units of transfusion for anemia of chronic disease and vivi-operative blood loss anemia and epistaxis rule out GI bleed. Weekend events noted with epistaxis and ENT consulted for nasal packing. No more bleeding episodes overnight. Anemia: GI following for aruna and planned EGD to rule out for GI bleed and anemia evaluation. Acute on chronic systolic heart failure with improvement on diuretics lasix 40 mg daily. Patient is moderate to high risk considering his cardiac function. Though he is hemodynamcislly stbale for the procedure. Peripheral vascualr disease s/p surgery on dual antiplatelet therapy which is on hold. Resume as per GI and cardiology. Persistent leukcoytosis Consider ID consult. WBC 19. No steroids. Afebrile. Patient is being followed by nephrology, cardiology, vascular surgery, podiatry and Gastroenetrolgoy during this hospital admission. Discharge planning to [facility].
[2018-03-29 07:56] LABS: ABSOLUTE BASOPHIL COUNT 0 /CUMM (0.0-0.2); ABSOLUTE EOSINOPHIL COUNT 0.3 /CUMM (0.0-0.7); ABSOLUTE GRANULOCYTE CT 17.1 /CUMM (1.4-6.5); ABSOLUTE LYMPH COUNT 0.6 /CUMM (1.2-3.4); ABSOLUTE MONOCYTE COUNT 1.2 /CUMM (0.10-0.60); BASOPHIL % 0 % (0.0-2.0); EOSINOPHIL % 1.4 % (0-5); HEMATOCRIT 25.9 % (42-52); MEAN CORPUSCULAR HGB 29.6 PG (27.0-31.0); MEAN CORPUSCULAR VOLUME 89.9 FL (80.0-94.0); MEAN PLATELET VOLUME 7.7 FL (7.4-10.4); PLATELET COUNT 256 /CUMM (130-400); RBC DISTRIBUTION WIDTH 20.7 % (11.5-14.5); RED BLOOD CELL CT 2.88 /CUMM (4.70-6.10); WHITE BLOOD CELL COUNT 19.1 /CUMM (4.8-10.8)
[2018-03-29 08:37] LABS: GRANULOCYTE % 89.3 % (42.2-75.2)
--- NOTE | 2018-03-29 12:40 | PN- Ear, Nose & Throat ---
Surgical Brief Attending Note Brief Attending Note: called to see this 67 year old male with left epistaxis, successfully packed 2 days ago. patient has CAD, CHF, PVD, melena, hematuria amongst other medical illnesses, and was scheduled for EGD today. Resident called me to see patient. By report, no bleeding with packing in place ASA, Plavix and heparin all by report on hold given active bleeding. Nose is not bleeding No blood through mouth (BRB). Has melena I asked floor and resident to notify me if patient went off the floor for EGD No call received, and as I left office, was told by resident that patient was on the floor. Arrived, and bed empty - patient down for EGD procedure. Thus unable to see or physically evaluate this patient. Would recommend packing be removed in or Thursday. If rebleeds, repack. Would hold blood thinners for as long as possible/ medically feasible. Once unpacked, avoid strain and trauma, and use nasal saline spray and humidifier. Thanks Rufus Balderas MD, FACS
--- NOTE | 2018-03-29 12:50 | Event Note ---
Event Note Event Note: At 9:30 AM I received a call from asking about details regarding epistaxis, I answered his questions and he has kidney if the patient would be on the floor around 11:50, I answered that the patient has EGD scheduled today not sure about exactly what time, I asked him to call me back before he comes to the floor to make sure the patient is a still here. I received a call from his office staff to ask if the patient is a still on the floor at 11:30, around 12: 00 I found out that the patient would be going for EGD within few minutes, I called his office 3 times, and the first 2 times they hang up on me and finally I spoke to Maribell , and asked her to convey the message to the doctor that the patient would be going soon to EGD and ask him to take in consideration if he is planning to see the patient right away that the patient might be not available since is going in few minutes to EGD. She confirmed that she would convey the message to
--- NOTE | 2018-03-29 13:02 | Proc Note Endoscopy ---
Endoscopy Procedure Medical History: unchanged Mental Status: alert/oriented Heart/Lung Eval Prior to Sedation: within normal limits Candidate for Sedation? Yes Procedure Date: 03/29/18 Procedure Type: EGD Cytogenetic Technician: MD Card Deborah E. ASA Classification: III Indications: 1. Melena 2. Acute blood loss anemia Instrument: diagnostic gastroscope Meds Received: MAC Patient's Tolerance: good Complications: none Extent Reached: second part of duodenum Procedure: Note: Informed consent was obtained prior to procedure. Risks and benefits of procedure were discussed with patient. Potential complications discussed included perforation, bleeding, abdominal pain, and adverse reaction to medications. It was explained that iany or all of these complications could result in the need for extended hospitalization, emergency surgery, transfusion of packed red blood cells (with the risk of HIV or hepatitis virus), intubation with mechanical ventilation, and possible need for antibiotics. It was further explained that an existing tumor polyp or mucosal abnormality might not be identified at the time of the procedure thus resulting in a missed opportunity for early diagnosis and treatment of a gastrointestinal malignancy or disease with possible interval development of a gastrointestinal cancer or other disease with possible worsening of clinical condition in the interval between endoscopies. It was also discussed that complications are not limited to those listed above. Possible alternatives to endoscopic treatment or evaluation were discussed. All questions were answered. Continuous EKG and blood pressure monitors were attached. Supplemental oxygen was provided with O2 Sat monitoring. Patient was placed in the left lateral decubitus position. A surgical timeout was performed. All persons in the room were identified. All concerns were expressed and answered. A bite block was placed in the mouth and sedation was administered by anesthesia and titrated to comfort prior to starting the procedure. The Olympus upper endoscope was advanced under direct vision to the level of the third portion of the duodenum. There was fresh blood in the mouth and in the posterior pharynx as well as in the proximal esophagus presumably due to patient's known epistaxiss. Esophagus: The esophagus had a normal mucosal vascular pattern throughout its entirety. The GE junction was identified and was normal. The Z line was nondisplaced. There were 3 small shallow, clean-based, distal esophageal ulcers noted. There is no active bleeding. Stomach: The stomach had a normal mucosal and vascular pattern throughout the antrum and body.. Retroflexed view of the cardiofundic region revealed a reticulated pattern with hemorrhagic spots suggestive of portal hypertensive gastropathy. There were no gastric varices. There were normal rugae and normal distensibility. The pylorus was patent and easily intubated. Duodenum: The duodenum was fully examined from bulb down to the third portion. There was a normal mucosal vascular pattern throughout. With the endoscope in the forward-viewing position, it was slowly withdrawn and all areas were re-inspected and findings are as described previously. Patient tolerated the procedure well. EBL: None Specimens Removed: None given patient's recent use of Plavix. Findings: 1. Probable portal hypertensive gastropathy 2. Shallow, clean-based distal esophageal ulcers 3. Fresh blood in the oropharynx suggestive of epistaxis Impression: 1. Probable portal hypertensive gastropathy 2. Shallow, clean-based distal esophageal ulcers 3. Fresh blood in the oropharynx suggestive of epistaxis Recommendations: 1. Start patient on Protonix 40 mg by mouth every morning 2. Can restart anticoagulation and antithrombotic agents when okay with ENT 3. We'll follow serial H&H and monitor for bleeding 4. Believe drop in H&H was likely due to epistaxis 5. GI will sign off for now. Please do not hesitate to contact us as needed arises.
[2018-03-29 15:03] VITALS: BP 110/60
--- NOTE | 2018-03-29 16:52 | Cons- Infect Disease ---
General Information and HPI Consulting Request Date of Consult: 03/29/18 Requested By: Rocky BROWN,Tien Reason for Consult: Increasing white blood cell count Source of Information: patient, old records History of Present Illness: This is a 67-year-old man with a history of coronary artery disease, status post CABG, CHF, hypertension, hyperlipidemia, aortic stenosis, chronic kidney disease and peripheral vascular disease, status post bilateral TMA's, left femoral popliteal bypass and, most recently, a left leg angiogram, which revealed a pseudoaneurysm in the left leg in the area of the previous bypass graft and significant distal common femoral disease in the right lower extremity, admitted on March 17 with significant rest pain of the right lower extremity from the groin to the foot. On admission he was afebrile. Laboratory data revealed a white blood cell count of 13,000, H&H 8 and 24, BUN/creatinine 87 and 2.3, AST/ ALT 143 and 324, INR 1.42. Arterial Doppler of the right lower extremity revealed a probable occluded profunda femoral artery. X-ray of the right foot and ankle revealed no evidence of osteomyelitis. He was begun on Heparin and was taken to the OR on March 22 for a right common femoral endarterectomy. His course has been complicated by the development of bullous lesions on the right foot, with progression to a necrotic eschar, epistaxis, with a Rhino pocket inserted on March 28 (with Keflex given for 24 hours), melena, with an upper endoscopy performed earlier today revealing probable portal hypertensive gastropathy and shallow distal esophageal ulcers, anemia, requiring 5 units of blood over the past 10 days, and an increasing white blood cell count, with his temperatures remaining normal, off antibiotics. His renal failure, attributed to contrast, has resolved. At present he does note discomfort from the packing in the left nare, causing difficulty in breathing, but he notes improvement in his right leg pain. He notes chronic right shoulder pain for the past year but has no other complaints at this time. Allergies/Medications Allergies: Coded Allergies: No Known Allergies (11/13/17) Home Med List: Albuterol Sulfate (Ventolin Hfa) 90 MCG HFA.AER.AD 1-2 PUF INH AD PRN COPD ( Reported) Ascorbate Calcium (Vitamin C) 500 MG TABLET 500 MG PO QAM SUPPLEMENT ( Reported) Aspirin (Ecotrin*) 81 MG TABLET.DR 1 TAB PO QAM HEART/BLOOD (Reported) Atorvastatin Calcium 80 MG TABLET 1 TAB PO DAILY PVD (Reported) Budesonide/Formoterol Fumarate (Symbicort 160-4.5 Mcg Inhaler) 160 MCG-4.5 MCG/ ACTUATION HFA.AER.AD 2 PUF INH BID BREATHING PROBLEMS (Reported) Clopidogrel Bisulfate (Plavix) 75 MG TABLET 1 TAB PO DAILY BLOOD THINNER ( Reported) Cyanocobalamin (Vitamin B-12) 1,000 MCG TABLET 1 TAB PO DAILY SUPPLEMENT ( Reported) Digoxin (Lanoxin) 125 MCG TABLET 0.125 MG PO 1700 HFrEF . Ergocalciferol (Vitamin D2) (Vitamin D2) 50,000 UNIT CAPSULE 1 TAB PO QSUN SUPPLEMENT (Reported) Ezetimibe (Zetia) 10 MG TABLET 10 MG PO DAILY CHOLESTEROL (Reported) Ferrous Sulfate 325 MG (65 MG IRON) TABLET 1 TAB PO TID IRON, VITAMIN ( Reported) Fish Oil/Dha/Epa (Fish Oil 1,200 MG Fish Oil) 1,200 MG-144 MG-216 MG CAPSULE 1 CAP PO DAILY SUPPLEMENT (Reported) Furosemide (Lasix) 40 MG TABLET 1 TAB PO DAILY CHF Please take as prescribed and follow up with your doctor. Insulin Glargine,Hum.rec.anlog (Lantus Solostar) 100 UNIT/ML (3 ML) INSULN.PEN 4 UNIT SC QPM dm (Reported) Levothyroxine Sodium (Synthroid) 25 MCG TABLET 0.025 MG PO DAILY AC HYPOTHYROIDISM . Oxycodone HCl/Acetaminophen (Percocet 7.5-325 MG Tablet) 7.5 MG-325 MG TABLET 1 TAB PO BID PAIN (Reported) Sertraline HCl 50 MG TABLET 50 MG PO DAILY DEPRESSION (Reported) Sitagliptin Phosphate (Januvia) 100 MG TABLET 1 TAB PO DAILY DIABETES ( Reported) Past History Travel History Traveled to [place] past 21 day No Medical History Blood Transfusion Hx: Yes Neurological: GAIT ABDNORMALITY WEAKNESS EENT: NONE Cardiovascular: aortic stenosis, CAD, CHF, hypertension, hyperlipidemia, NSTEMI, PVD Respiratory: NONE Gastrointestinal: appt for pill cam cancelled for today due to ED visit gi bleed Hepatic: NONE Renal: urinary incontinence, CKD Musculoskeletal: CHRONIC OSTEOMYLITIS LFT FOOT- TOES AMP X5 RGHT FOOT- TOES AMP X4 Psychiatric: depression Endocrine: diabetes Blood Disorders: anemia with occ tranfusions Cancer(s): NONE 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 amputation of 9 toes PTCA ESWL by Dr[address] Ledesma toe amputations bilaterally aortic valve, LE stents Family History Relations & Conditions If Any: FATHER (CAD). , Age 40-50; Cause: CAD (coronary artery disease). MOTHER (Pancreatic cancer). BROTHER (HTN). Psychosocial History Who Do You Live With? spouse Services at Home: Nursing Primary Language: Italian Smoking Status: Former Smoker ETOH Use: denies use Illicit Drug Use: denies illicit drug use Functional Ability ADLs Independent: dressing, eating, toileting, bathing. Ambulation: independent IADLs Independent: shopping, housework, finances, food prep, telephone, transportation , medication admin. Review of Systems Review of Systems All Other Systems: Reviewed and Negative Exam & Diagnostic Data Last 24 Hrs of Vital Signs/I&O Vital Signs Date Time Temp Pulse Resp B/P B/P Pulse O2 O2 Flow FiO2 Mean Ox Delivery Rate 03/29 1503 98.2 65 18 110/60 97 03/29 0655 99.0 74 18 124/70 94 Room Air 03/29 0000 Room Air 03/28 2205 98.5 72 20 120/70 95 Room Air 03/28 1715 71 110/60 Intake & Output 03/29 1600 03/29 0800 03/29 0000 Intake Total 850 Output Total 400 900 Balance 450 -900 Intake, IV 400 Intake, Oral 450 Output, Urine 400 900 Patient 175 lb Weight Weight Bed scale Measurement Method Physical Exam Other Physical Findings: He is awake and alert in no acute distress. He is afebrile. Skin reveals no rash. HEENT exam left rhino pocket in place, with dried blood noted. Neck is supple with no adenopathy. Lungs decreased breath sounds both bases. Heart regular rhythm with a 2/6 systolic ejection murmur. Abdomen is soft, nontender with positive bowel sounds. Back no CVA tenderness. Extremities status post left TMA; status post amputation of the right first through fourth toes, with necrotic eschars overlying the dorsum of the right foot, with no purulent drainage or tenderness; right leg with mild edema and erythema medially, warm to touch, with no tenderness; decreased pulses both feet; slight decreased range of motion of the right shoulder. Neuro is without focality. Last 24 Hours of Lab Results: Laboratory Tests 03/29 03/28 0650 2000 Chemistry Sodium (137 - 145 mmol/L) 141 Potassium (3.5 - 5.1 mmol/L) 4.7 Chloride (98 - 107 mmol/L) 107 Carbon Dioxide (22 - 30 mmol/L) 25 Anion Gap (5 - 16) 8 BUN (9 - 20 mg/dL) 51 H Creatinine (0.7 - 1.2 mg/dL) 1.2 Estimated GFR (>60 ml/min) > 60 BUN/Creatinine Ratio (7 - 25 %) 42.5 H Hematology CBC w Diff NO MAN DIFF REQ NO MAN DIFF REQ WBC (4.8 - 10.8 /CUMM) 19.1 H 17.9 H RBC (4.70 - 6.10 /CUMM) 2.88 L 3.00 L Hgb (14.0 - 18.0 G/DL) 8.5 L 8.8 L Hct (42 - 52 %) 25.9 L 27.1 L MCV (80.0 - 94.0 FL) 89.9 90.1 MCH (27.0 - 31.0 PG) 29.6 29.4 MCHC (33.0 - 37.0 G/DL) 33.0 32.6 L RDW (11.5 - 14.5 %) 20.7 H 20.5 H Plt Count (130 - 400 /CUMM) 256 240 MPV (7.4 - 10.4 FL) 7.7 7.7 Gran % (42.2 - 75.2 %) 89.3 H 88.7 H Lymphocytes % (20.5 - 51.1 %) 3.2 L 3.1 L Monocytes % (1.7 - 9.3 %) 6.1 7.1 Eosinophils % (0 - 5 %) 1.4 1.1 Basophils % (0.0 - 2.0 %) 0 0 Absolute Granulocytes (1.4 - 6.5 /CUMM) 17.1 H 15.9 H Absolute Lymphocytes (1.2 - 3.4 /CUMM) 0.6 L 0.6 L Absolute Monocytes (0.10 - 0.60 /CUMM) 1.2 H 1.3 H Absolute Eosinophils (0.0 - 0.7 /CUMM) 0.3 0.2 Absolute Basophils (0.0 - 0.2 /CUMM) 0 0 Last 24 Hours of Sadi Results: Urine culture March 22 negative Diagnostic Data Recent Imaging Findings: Chest x-ray March 25 stable cardiomegaly and interstitial edema, right greater than left, with a patchy airspace opacity of the right perihilar region; small right and trace left pleural effusions Renal ultrasound March 19 nonobstructing stone in the midpole of the right kidney X-ray of the right foot and ankle March 18 no evidence of osteomyelitis Assessment/Plan Assessment/Plan Impression: This is a 67-year-old man with a history of peripheral vascular disease, status post a recent left leg angiogram with significant distal common femoral disease noted in the right lower extremity, admitted on March 17 with significant rest pain of the right lower extremity, from the groin to the foot, found to be afebrile with a mild leukocytosis, renal insufficiency, and elevated liver enzymes, status post a right common femoral endarterectomy 5 days after admission with his hospital course complicated by the development of bullous lesions on the right foot, with progression to necrotic eschars, epistaxis, melena, anemia and an increasing white blood cell count. The etiology of his leukocytosis is unclear. It could be multifactoral, with several possible sources including the right foot, though it is apparently better perfused than on admission and there is no obvious infection noted, the GI bleed, though his endoscopy does not reveal any significant source of bleeding, and the epistaxis, though this seems less likely. He is currently off all blood thinners, which may put him at increased risk for restenosis. His renal failure, felt to be secondary to contrast, appears to have resolved and his liver enzymes have normalized. Of note the role of prophylactic antibiotics for nasal packing is controversial; therefore he can continue to be followed off antibiotics, particularly as he remains afebrile and otherwise stable. Suggestion: 1. Further management of his right foot per Podiatry and Vascular surgery 2. Further management of his epistaxis per ENT 3. Continue to follow his temperatures and white blood cell count off antibiotics Consult Acknowledgment - Thank you for your consult request.
--- NOTE | 2018-03-29 18:15 | PN- Podiatry ---
Subjective Subjective: Patient is seen and evaluated at bedside resting comfortably in bed eating dinner and accompanied by a family member. We are consulted for a demarcating superficial tissue loss on the right foot. I have discussed the case earlier today with Dr. Mccracken, who expressed concern to me regarding his uptrending WBC during this admission. He denies fever, chills, nausea, vomiting, diaphoresis, shortness of breath, chest pain at the time of my examination. Review of Systems: A 14 point review of systems was performed, and was found to be negative apart from the patient's complaints described above in the history of present illness. Objective Vital Signs and I&Os Vital Signs Date Time Temp Pulse Resp B/P B/P Pulse O2 O2 Flow FiO2 Mean Ox Delivery Rate 03/29 1709 65 110/60 03/29 1503 98.2 65 18 110/60 97 03/29 0655 99.0 74 18 124/70 94 Room Air 03/29 0000 Room Air 03/28 2205 98.5 72 20 120/70 95 Room Air Intake & Output 03/29 1600 03/29 0800 03/29 0000 03/28 1600 03/28 0800 03/28 0000 Intake Total 850 600 240 400 Output Total 184 503 9667 1000 750 Balance 450 -900 -700 -760 -350 Intake, IV 400 120 Intake, Oral 450 480 240 400 Number 1 1 Bowel Movements Output, Urine 403 173 6181 1000 750 Patient 175 lb 180 lb Weight Weight Bed scale Bed scale Measurement Method Physical Exam: The patient continues to have nonpalpable pedal pulses, temperature gradient remains normal in the left lower extremity, and the right lower extremity continues to be stably warm status post revascularization. The patient has good capillary refill time on his remaining right fifth digit. The patient is status post closed and healed left transmetatarsal amputation, and has had partial amputation of the right foot with the fifth digit remaining. Across almost the entire dorsum of the foot, there is a dry eschar, with ulcerated margins that had a miniscule amount of capillary oozing, but no purulence, no fluctuance, no crepitus, no malodor. Current Medications: Current Medications Sig/Salome Start time Last Medication Dose Route Stop Time Status Admin Albuterol Sulfate See Dose Q4-6 PRN PRN 03/17 1945 AC Insts (1) INH Ascorbic Acid 500 MG DAILY 03/18 0900 AC 03/29 PO 1500 Atorvastatin Calcium 20 MG 1700 03/24 1700 AC 03/29 PO 1708 Budesonide/ 2 PUF BID 03/17 2100 AC 03/29 Formoterol Fumarate INH 0828 Cephalexin 250 MG Q6 03/28 0600 DC 03/28 PO 03/29 0559 2352 Chlorhexidine 1 GM .STK-MED ONE 03/29 1400 DC Gluconate TOP 03/29 1401 Cyanocobalamin 1,000 MCG DAILY 03/18 0900 AC 03/29 PO 1500 Dextrose/Sodium 1,000 ML Q20H 03/29 0730 AC 03/29 Chloride IV 03/30 0329 0829 Digoxin 0.125 MG 1700 03/18 1700 AC 03/29 PO 1709 Ezetimibe 10 MG DAILY 03/18 0900 AC 03/29 PO 1501 Ferric Sodium 125 MG Q48 03/26 1200 AC 03/28 Gluconate Complex IV 04/09 1005 0914 Sodium Chloride 100 ML Ferrous Sulfate 325 MG TID 03/17 2100 AC 03/29 PO 1500 Furosemide 40 MG DAILY 03/26 1327 AC 03/29 PO 1500 Glycerin 2 SPRAY Q2P PRN 03/23 0500 AC 03/25 PO 0944 Insulin Aspart 0 TIDAC 03/29 1700 AC 03/29 SC 1709 Insulin Aspart 0 TIDAC 03/27 1700 SD 03/28 [place] 1720 Insulin Detemir 4 UNITS QPM 03/22 2100 03/28 [place] 2132 Insulin Human Regular 0 Q6 03/29 1200 DC SC Levothyroxine Sodium 0.025 MG DAILY AC 03/18 0700 AC 03/29 PO 0549 Melatonin 5 MG ONCE ONE 03/28 2215 DC 03/28 PO 03/28 2216 2233 Omeprazole 40 MG DAILY AC 03/30 0700 PO Pantoprazole Sodium 40 MG BID 03/28 1131 DC 03/29 IV 0824 Patient Medication 1 ED ONE ONE 03/29 0945 DC Teaching ED 03/29 0946 Polyethylene Glycol 17 GM DAILY 03/25 1100 AC 03/26 PO 1047 Povidone Iodine 1 TULIO DAILY 03/29 0900 AC 03/29 TOP 1150 Senna/Docusate Sodium 2 TAB DAILY 03/25 1100 AC 03/27 PO 0846 Sertraline HCl 50 MG DAILY 03/18 0900 AC 03/29 PO 1501 Dose Instructions: (1)Albuterol Sulfate: 1-2 PUF Results Last 48 Hours of Labs: Laboratory Tests 03/29 03/28 0650 2000 Chemistry Sodium (137 - 145 mmol/L) 141 Potassium (3.5 - 5.1 mmol/L) 4.7 Chloride (98 - 107 mmol/L) 107 Carbon Dioxide (22 - 30 mmol/L) 25 Anion Gap (5 - 16) 8 BUN (9 - 20 mg/dL) 51 H Creatinine (0.7 - 1.2 mg/dL) 1.2 Estimated GFR (>60 ml/min) > 60 BUN/Creatinine Ratio (7 - 25 %) 42.5 H Hematology CBC w Diff NO MAN DIFF REQ NO MAN DIFF REQ WBC (4.8 - 10.8 /CUMM) 19.1 H 17.9 H RBC (4.70 - 6.10 /CUMM) 2.88 L 3.00 L Hgb (14.0 - 18.0 G/DL) 8.5 L 8.8 L Hct (42 - 52 %) 25.9 L 27.1 L MCV (80.0 - 94.0 FL) 89.9 90.1 MCH (27.0 - 31.0 PG) 29.6 29.4 MCHC (33.0 - 37.0 G/DL) 33.0 32.6 L RDW (11.5 - 14.5 %) 20.7 H 20.5 H Plt Count (130 - 400 /CUMM) 256 240 MPV (7.4 - 10.4 FL) 7.7 7.7 Gran % (42.2 - 75.2 %) 89.3 H 88.7 H Lymphocytes % (20.5 - 51.1 %) 3.2 L 3.1 L Monocytes % (1.7 - 9.3 %) 6.1 7.1 Eosinophils % (0 - 5 %) 1.4 1.1 Basophils % (0.0 - 2.0 %) 0 0 Absolute Granulocytes (1.4 - 6.5 /CUMM) 17.1 H 15.9 H Absolute Lymphocytes (1.2 - 3.4 /CUMM) 0.6 L 0.6 L Absolute Monocytes (0.10 - 0.60 /CUMM) 1.2 H 1.3 H Absolute Eosinophils (0.0 - 0.7 /CUMM) 0.3 0.2 Absolute Basophils (0.0 - 0.2 /CUMM) 0 0 03/28 1210 Coagulation PT (9.4 - 12.5 SEC) 16.8 H INR (0.90 - 1.17) 1.53 H Hematology CBC w Diff MAN DIFF ORDERED WBC (4.8 - 10.8 /CUMM) 15.0 H RBC (4.70 - 6.10 /CUMM) 2.65 L Hgb (14.0 - 18.0 G/DL) 7.9 L Hct (42 - 52 %) 24.0 L MCV (80.0 - 94.0 FL) 90.5 MCH (27.0 - 31.0 PG) 29.7 MCHC (33.0 - 37.0 G/DL) 32.8 L RDW (11.5 - 14.5 %) 21.6 H Plt Count (130 - 400 /CUMM) 229 MPV (7.4 - 10.4 FL) 7.8 Gran % (42.2 - 75.2 %) 90.5 H Lymphocytes % (20.5 - 51.1 %) 3.1 L Monocytes % (1.7 - 9.3 %) 5.6 Eosinophils % (0 - 5 %) 0.7 Basophils % (0.0 - 2.0 %) 0.1 Absolute Granulocytes (1.4 - 6.5 /CUMM) 13.6 H Absolute Lymphocytes (1.2 - 3.4 /CUMM) 0.5 L Absolute Monocytes (0.10 - 0.60 /CUMM) 0.8 H Absolute Eosinophils (0.0 - 0.7 /CUMM) 0.1 Absolute Basophils (0.0 - 0.2 /CUMM) 0 Platelet Estimate (ADEQUATE) VERIFIED BY SMEAR Anisocytosis 1+ 03/28 0625 Chemistry Sodium (137 - 145 mmol/L) 141 Potassium (3.5 - 5.1 mmol/L) 4.8 Chloride (98 - 107 mmol/L) 110 H Carbon Dioxide (22 - 30 mmol/L) 23 Anion Gap (5 - 16) 8 BUN (9 - 20 mg/dL) 63 H Creatinine (0.7 - 1.2 mg/dL) 1.2 Estimated GFR (>60 ml/min) > 60 BUN/Creatinine Ratio (7 - 25 %) 52.5 H Hematology CBC w Diff MAN DIFF ORDERED WBC (4.8 - 10.8 /CUMM) 14.6 H RBC (4.70 - 6.10 /CUMM) 2.56 L Hgb (14.0 - 18.0 G/DL) 7.5 L Hct (42 - 52 %) 23.0 L MCV (80.0 - 94.0 FL) 89.7 MCH (27.0 - 31.0 PG) 29.5 MCHC (33.0 - 37.0 G/DL) 32.9 L RDW (11.5 - 14.5 %) 21.5 H Plt Count (130 - 400 /CUMM) 211 MPV (7.4 - 10.4 FL) 8.0 Gran % (42.2 - 75.2 %) 87.7 H Lymphocytes % (20.5 - 51.1 %) 4.0 L Monocytes % (1.7 - 9.3 %) 7.6 Eosinophils % (0 - 5 %) 0.6 Basophils % (0.0 - 2.0 %) 0.1 Absolute Granulocytes (1.4 - 6.5 /CUMM) 12.8 H Absolute Lymphocytes (1.2 - 3.4 /CUMM) 0.6 L Absolute Monocytes (0.10 - 0.60 /CUMM) 1.1 H Absolute Eosinophils (0.0 - 0.7 /CUMM) 0.1 Absolute Basophils (0.0 - 0.2 /CUMM) 0 Platelet Estimate (ADEQUATE) VERIFIED BY SMEAR Polychromasia 1+ Poikilocytosis 1+ Basophilic Stippling 1+ Anisocytosis 1+ Ovalocytes 1+ Assessment/Plan Assessment/Plan 67-year-old diabetic male with peripheral arterial disease status post right femoral endarterectomy with demarcating tissue loss on the dorsum of the right foot. Patient was seen and evaluated at bedside A Betadine soaked gauze dressing was placed on the large dorsal eschar the right foot, and Betadine paint was placed on the dry eschars on the distal leg. While his white blood cell count is indeed concerning, he has shown no other signs of systemic inflammatory response, and the wound clinically does not exhibit copious drainage. Also, the associated pain with this lesion has decreased steadily throughout the course of this admission, and the tissue loss has slowly demarcated and dried out commensurate with the acute limb ischemia he exhibited when I was initially consulted. I will continue to follow him closely on a daily basis, and change course if he does become febrile. In the meantime I will order repeat x-rays to examine any interval changes from when I was initially consulted. Core Measures Venous Thromboembolism VTE Risk Factors Age>40 No Mechanical VTE Prophylaxis d/t N/A MechProphylax Ordered No VTE Pharm Prophylaxis d/t NA PharmProphylax ordered
[2018-03-29 22:11] VITALS: BP 134/82
--- NOTE | 2018-03-30 00:02 | RADIOLOGY REPORT ---
EXAMINATION: XR FOOT, RIGHT CLINICAL INFORMATION: Large dorsal eschar. Status post right lower extremity revascularization. Concern for osteomyelitis. COMPARISON: 03/18/2018. TECHNIQUE: AP and lateral views of the right foot. FINDINGS: The patient is status post arch indication of the right foot with absence of the first through fourth phalanges and the distal aspects of the first through fourth metatarsals. This is not significantly changed from prior exam. There is no acute bony destruction. There are no acute fractures. Again identified is a plantar surface calcaneal spur. There are scattered vascular calcifications. There is diffuse soft tissue swelling about the distal dorsum of the foot. There is no demonstrable subcutaneous gas. IMPRESSION: Stable postoperative appearance to the right foot. No acute bony destruction demonstrable.
[2018-03-30 06:23] VITALS: BP 128/80
--- NOTE | 2018-03-30 07:12 | PN- Housestaff ---
Bal BROWN,[place] 03/30/18 0711: Subjective Follow-up For: Peripheral vascular disease status post right femoral endarterectomy Epistaxis, melena, hematuria intractable lower limb pain [improved] post procedure Multiple digit amputation Reduced ejection fraction of 20-30% Oliguria GRECIA on CKD improve Pulmonary edema Tele-Events Since Last Visit: sr, 1 DEGREE HEART BLOCK, 71, 0.16, 0.26, no overnight events Subjective: The patient was seen and examined, vital signs are stable, fluid balance -225, off antibiotics, reports that the pain in his lower extremity is better Review of Systems Constitutional: Reports: see HPI. Objective Last 24 Hrs of Vital Signs/I&O Vital Signs Date Time Temp Pulse Resp B/P B/P Pulse O2 O2 Flow FiO2 Mean Ox Delivery Rate 03/30 0623 98.6 73 24 128/80 95 Room Air 03/30 0000 Room Air 03/29 2211 98.1 74 24 134/82 93 03/29 1709 65 110/60 03/29 1503 98.2 65 18 110/60 97 Intake & Output 03/30 1600 03/30 0800 03/30 0000 Intake Total 200 200 Output Total 200 425 650 Balance -200 -225 -450 Intake, Oral 200 200 Number 1 Bowel Movements Output, Urine 200 425 650 Patient 171 lb Weight Physical Exam General Appearance: Alert, Oriented X3, Cooperative, No Acute Distress HEENT: Atraumatic, PERRLA, EOMI, Mucous Membr. moist/pink Cardiovascular: Normal S1, Normal S2 Lungs: Clear to Auscultation Abdomen: Normal Bowel Sounds, Soft, No Tenderness Neurological: Normal Speech, Strength at 5/5 X4 Ext Extremities: RIGHT FOOT IN SURGICAL DRESSING, NO CLEAR DISCHARGE OR BLEEDING Assessment/Plan Assessment: Mr. Almanzar is a 67-year-old male with PMH of aortic stenosis, CAD s/p CABG (2016), CHF (last Echo 03/20/2018 that showed anterior wall hypokinesis and normal diastolic part in and reduced ejection fraction of 20-30% significant decrease from previous echo 3 months ago, Hypertension, hyperlipidemia, NSTEMI, PVD, urinary incontinence, CKD, and chronic osteomyelities w/ toes amputation who presented to [facility] with complains of progressive worsening right lower leg pain. PatienMr. Almanzar is a 67-year-old male with PMH of aortic stenosis, CAD s/p CABG (08/2017), CHF (last Echo 03/20/2018 that showed anterior wall hypokinesis and normal diastolic part in and reduced ejection fraction of 20-30% significant decrease from previous echo 3 months ago, Hypertension, hyperlipidemia, NSTEMI, PVD, urinary incontinence, CKD, and chronic osteomyelities w/ toes amputation who presented to [facility] with complains of progressive worsening right lower leg pain. Patient was found to have significant blood supply compromise to the right leg with pain at rest and extensive right common artery disease extending into the profunda. Problem list 1. Severe stenosis in the proximal superficial femoral artery status post endarterectomy on 03/22/18 2. GRECIA on CKD 3. Transaminitis 4. Anemia 5. History of PVD 6. History of Hypertension, Hyperlipidemia 7. Hypothyroidism On March 22 the patient was taken to the OR for common femoral artery endarterectomy and post procedure the patient was transferred to the intensive care unit for observation. There was no significant decrease in H&H postprocedure. The patient required 4 units of blood transfusion prior to the procedure with the recommendation by industrial designer to have had a H&H of 08/01 before procedure. His H&H has continued to remain stable post procedure. 0n 03/25 patient was transferred to telemetry, he was started on carvedilol while on the ICU which resulted in bradycardia. He was transferred to telemetry for close monitoring of his heart rate. Epistaxis: His H&H dropped yesterday, received 1 unit of PRBCs, his H&H is a stable posttransfusion Patient has history of epistaxis with nasal cauterization in the past Holding aspirin, Plavix, subcu heparin ENT consult appreciated Continue nasal packing and Keflex for TSS prophylaxis for now Plan is to remove the VAC on or Thursday To avoid straining and trauma after unpacking and he was nasal saline spray Melena: Patient had an episode of melena with blood clots yesterday It can be possibly due to severe epistaxis he had the night before EGD yesterday showed tension, clear esophageal ulcer, blood in the oropharynx most likely due to epistaxis Continue aspirin, Plavix, Continue to hold heparin for now Continue IV Protonix twice daily Heart failure with reduced ejection fraction * Ejection fraction of 20-30% reduced from 40-45% on echo from December 2017. Patient status post recent NSTEMI within last 6 weeks. * No plans for AICD placement at this time given the fact that his ejection fraction to be affected by the recent MRI, will continue to follow echocardiogram for improvement of ejection fraction. Dr. Botello and Dr. English on board. * No plans for Entresto because of kidney function. * Patient is off beta zamzam and ACEI/ARB's because of bradycardia. * Patient continue to be in normal sinus rhythm with 60-70 heart rate. GRECIA on CKD stage III Creatinine today is 1.1 at baseline Continue to follow up on nephrology recommendation * GRECIA likely due to contrast prior to admission for angiography peripheral vascular disease * Continue home dose of Lasix * Patient is diuresing well on the last 24 hour output -760 Severe stenosis in the proximal superficial femoral artery status post endarterectomy on 03/22/18 * Vascular and podiatry on board * Patient is perfusing well, normal capillary refill, right lower extremity warm to touch * Leukocytosis mostly active, no signs of infection * Silvadene for daily use by the nursing staff for dressing changes over the weekend * No indication for surgical intervention at this time as tissue was is superficial and not infectious * Continue aspirin and Plavix Hypothyroidism * Synthroid 25 MCG * Repeated TSH 5.56, free T4 1 0.27, total T3 0.55 * Consider increase Synthroid dose to 50 MCG given elevated TSH Diabetes mellitus * Patient is on insulin sliding scale low-dose and Levemir 4 units every afternoon. * Patient had high readings yesterday in 400 and was given 6 units of insulin aspirt, blood sugar dropped to 89. This morning blood sugar is 126 * We'll increase sliding scale to medium dose, continue Levemir 4 units every afternoon Anemia * Currently stable Transfuse 1 unit of PRBCs * Iron studies are suggestive for iron deficiency anemia. * Patient was started on ferric gluconate 8 doses per nephrology consultation. * Continue ferrous sulfate 325 mg 3 times a day. Transaminitis (resolved) * On presentation had ALT of 324 which improved and is back to normal on March 25 at 63. Leukocytosis: WBC trending up It can be secondary to lower extremity wound infection however podiatry think this leukocytosis is reactive ID consult appreciated Patient is full code DVT prophylaxis with Alps Consistent carbohydrate diet (currently n.p.o. for EGD) Problem List: 1. Melena 2. HFrEF (heart failure with reduced ejection fraction) Pain Ratin Pain Location: N/A Pain Goal: Remain pain free Pain Plan: Pathway Tomorrow's Labs & Rationales: BEP CBC Tien Hidalgo 03/30/18 1056: Attending MD Review Statement Attending Statement Attending MD Statement: examined this patient, discuss w/resident/PA/TARE WEIGHER, agreed w/resident/PA/TARE WEIGHER, discussed with family, reviewed EMR data (avail), discussed with nursing, discussed with case mgmt, reviewed images, amended to note Attending Assessment/Plan: Patient seen/examined bedside. No overnight events. Labs noted with persistent leukocytosis WBC 22. Off antibitoics. Hb stable. Can resume antiplatleet therapy soon as delaying is associated with risk of stent stenosis. Monitor closely for nose bleeding and conitnue with packing. Monitor closely cbc and creatinine. Cont current care..
[2018-03-30 07:42] LABS: ABSOLUTE BASOPHIL COUNT 0 /CUMM (0.0-0.2); ABSOLUTE EOSINOPHIL COUNT 0.1 /CUMM (0.0-0.7); ABSOLUTE GRANULOCYTE CT 20.6 /CUMM (1.4-6.5); ABSOLUTE LYMPH COUNT 0.4 /CUMM (1.2-3.4); ABSOLUTE MONOCYTE COUNT 1.7 /CUMM (0.10-0.60); BASOPHIL % 0 % (0.0-2.0); EOSINOPHIL % 0.4 % (0-5); HEMATOCRIT 25.4 % (42-52); MEAN CORPUSCULAR HGB 29.7 PG (27.0-31.0); MEAN CORPUSCULAR HGB CONC 32.8 G/DL (33.0-37.0); MEAN CORPUSCULAR VOLUME 90.6 FL (80.0-94.0); MEAN PLATELET VOLUME 7.8 FL (7.4-10.4); RBC DISTRIBUTION WIDTH 20.8 % (11.5-14.5); WHITE BLOOD CELL COUNT 22.9 /CUMM (4.8-10.8)
[2018-03-30 08:51] LABS: PLATELET COUNT 249 /CUMM (130-400)
[2018-03-30 08:52] LABS: GRANULOCYTE % 90.2 % (42.2-75.2)
--- NOTE | 2018-03-30 12:45 | PN- Gastroenterology ---
Assessment/Plan GI Assessment/Recommendations: ASSESSMENT: 1. Epistaxes. Although patient had melena this morning. His H&H is stable. Should patient have ongoing melena we'll contact ENT for reevaluation of nosebleed. 2. Distal esophageal ulcers with no stigmata of bleeding. Patient had 2 shallow distal esophageal ulcers. 3. Chronic anemia 4. Status post femoral endarterectomy. RECOMMENDATIONS: 1. From a GI point of view can restart any thrombotic agent however would discuss with ENT. 2. Would keep patient on Protonix 40 mg by mouth every morning 3. GI will sign off for now. Please do not hesitate to contact us as needed. 4. Would keep patient on Protonix indefinitely given likelihood that patient will need long-term anticoagulation as well as use of antithrombotic agents long -term. Subjective Subjective: Patient is doing well. Per nursing report he had a melenic stool last night. I have discussed with the medical residents that at EGD yesterday there was fresh blood in the oropharynx suggesting that patient had an ongoing posterior nasal bleed. Objective Vital Signs and I&Os Vital Signs Date Time Temp Pulse Resp B/P B/P Pulse O2 O2 Flow FiO2 Mean Ox Delivery Rate 03/30 1130 Room Air Room Air 03/30 0800 95 Room Air 03/30 0623 98.6 73 24 128/80 95 Room Air 03/30 0000 Room Air 03/29 2211 98.1 74 24 134/82 93 03/29 1709 65 110/60 03/29 1503 98.2 65 18 110/60 97 Intake & Output 03/30 1600 03/30 0400 03/29 1600 03/29 0400 03/28 1600 03/28 0400 Intake Total 200 200 850 840 400 Output Total 625 650 950 878 1856 750 Balance -425 -450 450 -900 -1460 -350 Intake, IV 400 120 Intake, Oral 200 200 450 720 400 Number 1 1 1 Bowel Movements Output, Urine 625 650 249 747 1856 750 Patient 171 lb 175 lb 180 lb Weight Weight Bed scale Bed scale Measurement Method Physical Exam General Appearance: alert, awake, comfortable Ears, Nose, Throat: Packing in left nares in place Respiratory: lungs clear Cardiovascular: regular rate/rhythm Abdomen: normal bowel sounds, soft, non-tender Neurologic/Psychiatric: awake, alert Current Medications: Current Medications Sig/Salome Start time Last Medication Dose Route Stop Time Status Admin Acetaminophen 500 MG Q6P PRN 03/30 0815 AC PO Acetaminophen 1,000 MG Q6P PRN 03/30 0815 AC N/A 1 UNIT IV Acetaminophen 650 MG .STK-MED ONE 03/29 1922 DC PO 03/29 1923 Albuterol Sulfate See Dose Q4-6 PRN PRN 03/17 1945 AC Insts (1) INH Ascorbic Acid 500 MG DAILY 03/18 0900 AC 03/30 PO 0854 Aspirin Buffered 81 MG QAM 03/31 0900 AC PO Atorvastatin Calcium 20 MG 1700 03/24 1700 AC 03/29 PO 1708 Budesonide/ 2 PUF BID 03/17 2100 AC 03/30 Formoterol Fumarate INH 0854 Chlorhexidine 1 GM .STK-MED ONE 03/29 1400 DC Gluconate TOP 03/29 1401 Clopidogrel Bisulfate 75 MG DAILY 03/31 0900 AC PO Cyanocobalamin 1,000 MCG DAILY 03/18 0900 AC 03/30 PO 0854 Dextrose/Sodium 1,000 ML Q20H 03/29 0730 DC 03/29 Chloride IV 03/30 0329 0829 Digoxin 0.125 MG 1700 03/18 1700 AC 03/29 PO 1709 Ezetimibe 10 MG DAILY 03/18 0900 AC 03/30 PO 0854 Ferric Sodium 125 MG Q48 03/26 1200 AC 03/30 Gluconate Complex IV 04/09 1005 0900 Sodium Chloride 100 ML Ferrous Sulfate 325 MG TID 03/17 2100 AC 03/30 PO 0854 Furosemide 40 MG DAILY 03/26 1327 AC 03/30 PO 0854 Glycerin 2 SPRAY Q2P PRN 03/23 0500 AC 03/25 PO 0944 Insulin Aspart 0 TIDAC 03/29 1700 AC 03/29 SC 1709 Insulin Detemir 4 UNITS QPM 03/22 2100 AC 03/29 SC 2138 Insulin Human Regular 0 Q6 03/29 1200 DC SC Levothyroxine Sodium 0.025 MG DAILY AC 03/18 0700 AC 03/30 PO 0514 Omeprazole 40 MG DAILY AC 03/30 0700 AC 03/30 PO 0514 Oxycodone/ 2 TAB ONCE ONE 03/30 1115 DC 03/30 Acetaminophen PO 03/30 1116 1119 Pantoprazole Sodium 40 MG BID 03/28 1131 DC 03/29 IV 0824 Polyethylene Glycol 17 GM DAILY 03/25 1100 AC 03/30 PO 0854 Povidone Iodine 1 TULIO DAILY 03/29 0900 AC 03/30 TOP 1043 Senna/Docusate Sodium 2 TAB DAILY 03/25 1100 AC 03/30 PO 0854 Sertraline HCl 50 MG DAILY 03/18 0900 AC 03/30 PO 0854 Dose Instructions: (1)Albuterol Sulfate: 1-2 PUF Results Pertinent Lab Results: Laboratory Tests 03/30 03/29 0643 0650 Chemistry Sodium (137 - 145 mmol/L) 139 141 Potassium (3.5 - 5.1 mmol/L) 4.5 4.7 Chloride (98 - 107 mmol/L) 107 107 Carbon Dioxide (22 - 30 mmol/L) 24 25 Anion Gap (5 - 16) 8 8 BUN (9 - 20 mg/dL) 42 H 51 H Creatinine (0.7 - 1.2 mg/dL) 1.1 1.2 Estimated GFR (>60 ml/min) > 60 > 60 BUN/Creatinine Ratio (7 - 25 %) 38.2 H 42.5 H Hematology CBC w Diff NO MAN DIFF REQ NO MAN DIFF REQ WBC (4.8 - 10.8 /CUMM) 22.9 H 19.1 H RBC (4.70 - 6.10 /CUMM) 2.80 L 2.88 L Hgb (14.0 - 18.0 G/DL) 8.3 L 8.5 L Hct (42 - 52 %) 25.4 L 25.9 L MCV (80.0 - 94.0 FL) 90.6 89.9 MCH (27.0 - 31.0 PG) 29.7 29.6 MCHC (33.0 - 37.0 G/DL) 32.8 L 33.0 RDW (11.5 - 14.5 %) 20.8 H 20.7 H Plt Count (130 - 400 /CUMM) 249 256 MPV (7.4 - 10.4 FL) 7.8 7.7 Gran % (42.2 - 75.2 %) 90.2 H 89.3 H Lymphocytes % (20.5 - 51.1 %) 1.9 L 3.2 L Monocytes % (1.7 - 9.3 %) 7.5 6.1 Eosinophils % (0 - 5 %) 0.4 1.4 Basophils % (0.0 - 2.0 %) 0 0 Absolute Granulocytes (1.4 - 6.5 /CUMM) 20.6 H 17.1 H Absolute Lymphocytes (1.2 - 3.4 /CUMM) 0.4 L 0.6 L Absolute Monocytes (0.10 - 0.60 /CUMM) 1.7 H 1.2 H Absolute Eosinophils (0.0 - 0.7 /CUMM) 0.1 0.3 Absolute Basophils (0.0 - 0.2 /CUMM) 0 0 03/28 1210 Coagulation PT (9.4 - 12.5 SEC) 16.8 H INR (0.90 - 1.17) 1.53 H Hematology CBC w Diff NO MAN DIFF REQ MAN DIFF ORDERED WBC (4.8 - 10.8 /CUMM) 17.9 H 15.0 H RBC (4.70 - 6.10 /CUMM) 3.00 L 2.65 L Hgb (14.0 - 18.0 G/DL) 8.8 L 7.9 L Hct (42 - 52 %) 27.1 L 24.0 L MCV (80.0 - 94.0 FL) 90.1 90.5 MCH (27.0 - 31.0 PG) 29.4 29.7 MCHC (33.0 - 37.0 G/DL) 32.6 L 32.8 L RDW (11.5 - 14.5 %) 20.5 H 21.6 H Plt Count (130 - 400 /CUMM) 240 229 MPV (7.4 - 10.4 FL) 7.7 7.8 Gran % (42.2 - 75.2 %) 88.7 H 90.5 H Lymphocytes % (20.5 - 51.1 %) 3.1 L 3.1 L Monocytes % (1.7 - 9.3 %) 7.1 5.6 Eosinophils % (0 - 5 %) 1.1 0.7 Basophils % (0.0 - 2.0 %) 0 0.1 Absolute Granulocytes (1.4 - 6.5 /CUMM) 15.9 H 13.6 H Absolute Lymphocytes (1.2 - 3.4 /CUMM) 0.6 L 0.5 L Absolute Monocytes (0.10 - 0.60 /CUMM) 1.3 H 0.8 H Absolute Eosinophils (0.0 - 0.7 /CUMM) 0.2 0.1 Absolute Basophils (0.0 - 0.2 /CUMM) 0 0 Platelet Estimate (ADEQUATE) VERIFIED BY SMEAR Anisocytosis 1+ 03/28 0625 Chemistry Sodium (137 - 145 mmol/L) 141 Potassium (3.5 - 5.1 mmol/L) 4.8 Chloride (98 - 107 mmol/L) 110 H Carbon Dioxide (22 - 30 mmol/L) 23 Anion Gap (5 - 16) 8 BUN (9 - 20 mg/dL) 63 H Creatinine (0.7 - 1.2 mg/dL) 1.2 Estimated GFR (>60 ml/min) > 60 BUN/Creatinine Ratio (7 - 25 %) 52.5 H Hematology CBC w Diff MAN DIFF ORDERED WBC (4.8 - 10.8 /CUMM) 14.6 H RBC (4.70 - 6.10 /CUMM) 2.56 L Hgb (14.0 - 18.0 G/DL) 7.5 L Hct (42 - 52 %) 23.0 L MCV (80.0 - 94.0 FL) 89.7 MCH (27.0 - 31.0 PG) 29.5 MCHC (33.0 - 37.0 G/DL) 32.9 L RDW (11.5 - 14.5 %) 21.5 H Plt Count (130 - 400 /CUMM) 211 MPV (7.4 - 10.4 FL) 8.0 Gran % (42.2 - 75.2 %) 87.7 H Lymphocytes % (20.5 - 51.1 %) 4.0 L Monocytes % (1.7 - 9.3 %) 7.6 Eosinophils % (0 - 5 %) 0.6 Basophils % (0.0 - 2.0 %) 0.1 Absolute Granulocytes (1.4 - 6.5 /CUMM) 12.8 H Absolute Lymphocytes (1.2 - 3.4 /CUMM) 0.6 L Absolute Monocytes (0.10 - 0.60 /CUMM) 1.1 H Absolute Eosinophils (0.0 - 0.7 /CUMM) 0.1 Absolute Basophils (0.0 - 0.2 /CUMM) 0 Platelet Estimate (ADEQUATE) VERIFIED BY SMEAR Polychromasia 1+ Poikilocytosis 1+ Basophilic Stippling 1+ Anisocytosis 1+ Ovalocytes 1+
--- NOTE | 2018-03-30 13:43 | PN- Podiatry ---
Subjective Subjective: Patient is seen and evaluated for a demarcating dorsal eschar over the majority of his right foot. The patient continues to have vital signs stable since I last seen him, but unfortunately his white count has increased almost 23,000. He continues to report no pain in the area, and was out of bed to chair without incident earlier today. He has also shown an improved mental status incrementally throughout this admission. He denies fever, chills, nausea, vomiting, diaphoresis, shortness of breath, chest pain at the time of my examination. Review of Systems: A 14 point review of systems was performed, and was found to be negative apart from the patient's complaints described above in the history of present illness. Objective Vital Signs and I&Os Vital Signs Date Time Temp Pulse Resp B/P B/P Pulse O2 O2 Flow FiO2 Mean Ox Delivery Rate 03/30 1130 Room Air Room Air 03/30 0800 95 Room Air 03/30 0623 98.6 73 24 128/80 95 Room Air 03/30 0000 Room Air 03/29 2211 98.1 74 24 134/82 93 03/29 1709 65 110/60 03/29 1503 98.2 65 18 110/60 97 Intake & Output 03/30 1600 03/30 0800 03/30 0000 03/29 1600 03/29 0800 03/29 0000 Intake Total 200 200 850 Output Total 200 425 650 400 900 Balance -200 -225 -450 450 -900 Intake, IV 400 Intake, Oral 200 200 450 Number 1 Bowel Movements Output, Urine 200 425 650 400 900 Patient 171 lb 175 lb Weight Weight Bed scale Measurement Method Physical Exam: Musculoskeletal exam is unchanged. Peripheral neuro exam is unchanged. Peripheral vascular exam is unchanged. The patient has a large dorsal eschar over the dorsum of the right foot with ulcerated margins, and some partial- thickness bullous changes on the distal edge. It continues to not exhibit any drainage, has no malodor, has no focal calor, has no fluctuance, has no crepitus , and no associated edema. There are other small well adhered eschar is on the distal leg. The leg and foot are nontender to palpation as they had been at the beginning of his admission. Current Medications: Current Medications Sig/Salome Start time Last Medication Dose Route Stop Time Status Admin Acetaminophen 500 MG Q6P PRN 03/30 0815 AC PO Acetaminophen 1,000 MG Q6P PRN 03/30 0815 N/A 1 UNIT IV Acetaminophen 650 MG .STK-MED ONE 03/29 192 DC PO 03/29 192 Albuterol Sulfate See Dose Q4-6 PRN PRN 03/17 1945 Insts (1) INH Ascorbic Acid 500 MG DAILY 03/18 0900 AC 03/30 PO 0854 Aspirin Buffered 81 MG QAM 03/31 0900 AC PO Atorvastatin Calcium 20 MG 1700 03/24 1700 AC 03/29 PO 1708 Budesonide/ 2 PUF BID 03/17 2100 AC 03/30 Formoterol Fumarate INH 0854 Chlorhexidine 1 GM .STK-MED ONE 03/29 1400 DC Gluconate TOP 03/29 1401 Clopidogrel Bisulfate 75 MG DAILY 03/31 0900 AC PO Cyanocobalamin 1,000 MCG DAILY 03/18 0900 AC 03/30 PO 0854 Dextrose/Sodium 1,000 ML Q20H 03/29 0730 DC 03/29 Chloride IV 03/30 0329 0829 Digoxin 0.125 MG 1700 03/18 1700 AC 03/29 PO 1709 Ezetimibe 10 MG DAILY 03/18 0900 AC 03/30 PO 0854 Ferric Sodium 125 MG Q48 03/26 1200 AC 03/30 Gluconate Complex IV 04/09 1005 0900 Sodium Chloride 100 ML Ferrous Sulfate 325 MG TID 03/17 2100 AC 03/30 PO 1252 Furosemide 40 MG DAILY 03/26 1327 AC 03/30 PO 0854 Glycerin 2 SPRAY Q2P PRN 03/23 0500 AC 03/25 PO 0944 Insulin Aspart 0 TIDAC 03/29 1700 AC 03/30 SC 1245 Insulin Detemir 4 UNITS QPM 03/22 2100 AC 03/29 SC 2138 Insulin Human Regular 0 Q6 03/29 1200 DC SC Levothyroxine Sodium 0.025 MG DAILY AC 03/18 0700 AC 03/30 PO 0514 Omeprazole 40 MG DAILY AC 03/30 0700 AC 03/30 PO 0514 Oxycodone/ 2 TAB ONCE ONE 03/30 1115 DC 03/30 Acetaminophen PO 03/30 1116 1119 Pantoprazole Sodium 40 MG BID 03/28 1131 DC 03/29 IV 0824 Polyethylene Glycol 17 GM DAILY 03/25 1100 AC 03/30 PO 0854 Povidone Iodine 1 TULIO DAILY 03/29 0900 AC 03/30 [facility] 1043 Senna/Docusate Sodium 2 TAB DAILY 03/25 1100 AC 03/30 PO 0854 Sertraline HCl 50 MG DAILY 03/18 09 AC 03/30 PO 0854 Dose Instructions: (1)Albuterol Sulfate: 1-2 PUF Results Last 48 Hours of Labs: Laboratory Tests 03/30 03/29 0643 0650 Chemistry Sodium (137 - 145 mmol/L) 139 141 Potassium (3.5 - 5.1 mmol/L) 4.5 4.7 Chloride (98 - 107 mmol/L) 107 107 Carbon Dioxide (22 - 30 mmol/L) 24 25 Anion Gap (5 - 16) 8 8 BUN (9 - 20 mg/dL) 42 H 51 H Creatinine (0.7 - 1.2 mg/dL) 1.1 1.2 Estimated GFR (>60 ml/min) > 60 > 60 BUN/Creatinine Ratio (7 - 25 %) 38.2 H 42.5 H Hematology CBC w Diff NO MAN DIFF REQ NO MAN DIFF REQ WBC (4.8 - 10.8 /CUMM) 22.9 H 19.1 H RBC (4.70 - 6.10 /CUMM) 2.80 L 2.88 L Hgb (14.0 - 18.0 G/DL) 8.3 L 8.5 L Hct (42 - 52 %) 25.4 L 25.9 L MCV (80.0 - 94.0 FL) 90.6 89.9 MCH (27.0 - 31.0 PG) 29.7 29.6 MCHC (33.0 - 37.0 G/DL) 32.8 L 33.0 RDW (11.5 - 14.5 %) 20.8 H 20.7 H Plt Count (130 - 400 /CUMM) 249 256 MPV (7.4 - 10.4 FL) 7.8 7.7 Gran % (42.2 - 75.2 %) 90.2 H 89.3 H Lymphocytes % (20.5 - 51.1 %) 1.9 L 3.2 L Monocytes % (1.7 - 9.3 %) 7.5 6.1 Eosinophils % (0 - 5 %) 0.4 1.4 Basophils % (0.0 - 2.0 %) 0 0 Absolute Granulocytes (1.4 - 6.5 /CUMM) 20.6 H 17.1 H Absolute Lymphocytes (1.2 - 3.4 /CUMM) 0.4 L 0.6 L Absolute Monocytes (0.10 - 0.60 /CUMM) 1.7 H 1.2 H Absolute Eosinophils (0.0 - 0.7 /CUMM) 0.1 0.3 Absolute Basophils (0.0 - 0.2 /CUMM) 0 0 03/28 2000 Hematology CBC w Diff NO MAN DIFF REQ WBC (4.8 - 10.8 /CUMM) 17.9 H RBC (4.70 - 6.10 /CUMM) 3.00 L Hgb (14.0 - 18.0 G/DL) 8.8 L Hct (42 - 52 %) 27.1 L MCV (80.0 - 94.0 FL) 90.1 MCH (27.0 - 31.0 PG) 29.4 MCHC (33.0 - 37.0 G/DL) 32.6 L RDW (11.5 - 14.5 %) 20.5 H Plt Count (130 - 400 /CUMM) 240 MPV (7.4 - 10.4 FL) 7.7 Gran % (42.2 - 75.2 %) 88.7 H Lymphocytes % (20.5 - 51.1 %) 3.1 L Monocytes % (1.7 - 9.3 %) 7.1 Eosinophils % (0 - 5 %) 1.1 Basophils % (0.0 - 2.0 %) 0 Absolute Granulocytes (1.4 - 6.5 /CUMM) 15.9 H Absolute Lymphocytes (1.2 - 3.4 /CUMM) 0.6 L Absolute Monocytes (0.10 - 0.60 /CUMM) 1.3 H Absolute Eosinophils (0.0 - 0.7 /CUMM) 0.2 Absolute Basophils (0.0 - 0.2 /CUMM) 0 Recent Imaging Studies: The patient had x-rays repeated yesterday at my recommendation, and they showed no interval changes suggestive of acute osteomyelitis, and showed no subcutaneous gas. Assessment/Plan Assessment/Plan 67-year-old diabetic male with end-stage peripheral arterial disease improving status post right lower extremity endarterectomy with demarcating tissue loss without clinical or radiographic evidence of acute infection. Patient is seen and evaluated at bedside The repeat radiographs are reviewed, and the findings were discussed with the patient A Betadine soaked gauze dressing was applied to the right foot, and this to be done daily The right foot wound continues to demarcate and dry out with residual superficial tissue loss secondary to peripheral arterial disease, however in my opinion there continues to be no clinical evidence of acute infection, and the radiographs do not show any interval changes from when I had initially seen him during this admission. The patient also has not demonstrated any other signs of systemic inflammatory response or signs of sepsis throughout this admission other than this increasing WBC, and I would consider other sources of leukocytosis. Case d/w Dr. Mccracken. Will continue to follow daily, and will reconsider surgical intervention if other infectious signs arise. Core Measures Venous Thromboembolism VTE Risk Factors Age>40 No Mechanical VTE Prophylaxis d/t N/A MechProphylax Ordered No VTE Pharm Prophylaxis d/t NA PharmProphylax ordered
--- NOTE | 2018-03-30 14:41 | PN- Infect Dx ---
Subjective Subjective: Afebrile without complaints. He has no pain in the right leg or foot and notes decreased discomfort from the rhino pocket in his left nare. He is urinating well with no dysuria status post removal of the Pace catheter yesterday. He reports no diarrhea. Objective Last 24 Hrs of Vital Signs/I&O Vital Signs Date Time Temp Pulse Resp B/P B/P Pulse O2 O2 Flow FiO2 Mean Ox Delivery Rate 03/30 1130 Room Air Room Air 03/30 0800 95 Room Air 03/30 0623 98.6 73 24 128/80 95 Room Air 03/30 0000 Room Air 03/29 2211 98.1 74 24 134/82 93 03/29 1709 65 110/60 03/29 1503 98.2 65 18 110/60 97 Intake & Output 03/30 1600 03/30 0800 03/30 0000 Intake Total 200 200 Output Total 200 425 650 Balance -200 -225 -450 Intake, Oral 200 200 Number 1 Bowel Movements Output, Urine 200 425 650 Patient 171 lb Weight Physical Exam Other Physical Findings: He appears comfortable in no acute distress Skin diaphoretic HEENT rhino pocket in the left nare with no active bleeding Lungs crackles at the left base/decreased breath sounds at the right base Heart regular rhythm with a 2/6 systolic ejection murmur Abdomen is soft, nontender with positive bowel sounds Extremities right foot dressing intact; right groin without inflammation Results Last 24 Hours of Lab Results: Laboratory Tests 03/30 06 Chemistry Sodium (137 - 145 mmol/L) 139 Potassium (3.5 - 5.1 mmol/L) 4.5 Chloride (98 - 107 mmol/L) 107 Carbon Dioxide (22 - 30 mmol/L) 24 Anion Gap (5 - 16) 8 BUN (9 - 20 mg/dL) 42 H Creatinine (0.7 - 1.2 mg/dL) 1.1 Estimated GFR (>60 ml/min) > 60 BUN/Creatinine Ratio (7 - 25 %) 38.2 H Hematology CBC w Diff NO MAN DIFF REQ WBC (4.8 - 10.8 /CUMM) 22.9 H RBC (4.70 - 6.10 /CUMM) 2.80 L Hgb (14.0 - 18.0 G/DL) 8.3 L Hct (42 - 52 %) 25.4 L MCV (80.0 - 94.0 FL) 90.6 MCH (27.0 - 31.0 PG) 29.7 MCHC (33.0 - 37.0 G/DL) 32.8 L RDW (11.5 - 14.5 %) 20.8 H Plt Count (130 - 400 /CUMM) 249 MPV (7.4 - 10.4 FL) 7.8 Gran % (42.2 - 75.2 %) 90.2 H Lymphocytes % (20.5 - 51.1 %) 1.9 L Monocytes % (1.7 - 9.3 %) 7.5 Eosinophils % (0 - 5 %) 0.4 Basophils % (0.0 - 2.0 %) 0 Absolute Granulocytes (1.4 - 6.5 /CUMM) 20.6 H Absolute Lymphocytes (1.2 - 3.4 /CUMM) 0.4 L Absolute Monocytes (0.10 - 0.60 /CUMM) 1.7 H Absolute Eosinophils (0.0 - 0.7 /CUMM) 0.1 Absolute Basophils (0.0 - 0.2 /CUMM) 0 Last 24 Hours of Sadi Results: No recent cultures Recent Imaging Studies: X-ray of the right foot March 29 reveals a stable postop appearance with no acute bony destruction Assessment/Plan ID Impression: Worsening leukocytosis, with temperatures remaining normal, off antibiotics with no obvious focus of infection. His right foot and leg pain have resolved status post right common femoral endarterectomy 8 days ago, with an eschar and surrounding ulceration on the right foot, but with no obvious infection. He could have an infection underlying the eschar and, if his white blood cell count remains elevated, further evaluation of his foot will be necessary. His last chest x-ray did reveal a patchy opacity in the right perihilar region, but his respiratory status is stable. His white blood cell count could be noninfectious in etiology, secondary to "stress" related to his recent epistaxis and melena, though his H&H is stable. Suggestion: 1. Obtain blood cultures 2 2. Obtain a urinalysis and urine culture 3. Repeat chest x-ray 4. Consider further evaluation of the right foot, for example with MRI, if above evaluation is negative and his white blood cell count continues to increase 5. Continue to follow off antibiotics pending above
[2018-03-30 15:14] VITALS: BP 120/68
--- NOTE | 2018-03-30 16:57 | RADIOLOGY REPORT ---
EXAMINATION: XR PORTABLE CHEST CLINICAL INFORMATION: Mild cough, leukocytosis. COMPARISON: 03/25/2018 TECHNIQUE: Portable frontal view of the chest was obtained. FINDINGS: Stable moderate to severe enlargement of the cardiomediastinal silhouette. The patient is status post median sternotomy. There are similar patchy and linear airspace opacities projecting over the right lower and mid lung ley. There may be a slightly increasing right pleural effusion. There may be a retrocardiac opacity. IMPRESSION: 1. Stable patchy and linear airspace opacities in the right mid and lower lung ley. Stable retrocardiac opacity. 2. Slightly increasing right small pleural effusion. 3. Stable moderate to severe enlargement of the cardiomediastinal silhouette.
[2018-03-30 21:46] VITALS: BP 122/64
[2018-03-31 06:34] VITALS: BP 126/68
--- NOTE | 2018-03-31 07:13 | PN- Housestaff ---
Bal BROWN,[place] 03/31/18 0713: Subjective Follow-up For: Persistent leukocytosis Peripheral vascular disease status post right femoral endarterectomy Epistaxis, melena, hematuria intractable lower limb pain [improved] post procedure Multiple digit amputation Reduced ejection fraction of 20-30% Oliguria GRECIA on CKD improve Pulmonary edema Tele-Events Since Last Visit: No overnight events Subjective: Patient was seen and examined this morning, stable vital signs, afebrile, off antibiotics, complaints of pain because of anterior nasal packing and mild pain 5/10 in his right lower extremity, will be going today for MRI, blood culture and urine culture still pending Review of Systems Constitutional: Reports: see HPI. Objective Last 24 Hrs of Vital Signs/I&O Vital Signs Date Time Temp Pulse Resp B/P B/P Pulse O2 O2 Flow FiO2 Mean Ox Delivery Rate 03/31 0634 98.3 72 20 126/68 95 Room Air 03/31 0000 95 Room Air 03/30 2146 98.5 75 20 122/64 96 Room Air 03/30 1514 98.6 77 20 120/68 96 Room Air 03/30 1130 Room Air Room Air Intake & Output 03/31 1600 03/31 0800 03/31 0000 Intake Total 360 300 Output Total 250 Balance 360 50 Intake, Oral 360 300 Output, Urine 250 Patient 174 lb Weight Weight Bed scale Measurement Method Physical Exam General Appearance: Alert, Oriented X3, Cooperative, No Acute Distress HEENT: Atraumatic, PERRLA, EOMI, Mucous Membr. moist/pink Cardiovascular: Normal S1, Normal S2 Lungs: Clear to Auscultation Abdomen: Normal Bowel Sounds, Soft, No Tenderness Neurological: Normal Speech, Strength at 5/5 X4 Ext, Normal Tone, Sensation Intact, Cranial Nerves 3-12 NL Extremities: No Clubbing, No Cyanosis, No Edema Assessment/Plan Assessment: Mr. Almanazr is a 67-year-old male with PMH of aortic stenosis, CAD s/p CABG (2016), CHF (last Echo 03/20/2018 that showed anterior wall hypokinesis and normal diastolic part in and reduced ejection fraction of 20-30% significant decrease from previous echo 3 months ago, Hypertension, hyperlipidemia, NSTEMI, PVD, urinary incontinence, CKD, and chronic osteomyelities w/ toes amputation who presented to [facility] with complains of progressive worsening right lower leg pain. PatienMr. Pawlyk is a 67-year-old male with PMH of aortic stenosis, CAD s/p CABG (08/2017), CHF (last Echo 03/20/2018 that showed anterior wall hypokinesis and normal diastolic part in and reduced ejection fraction of 20-30% significant decrease from previous echo 3 months ago, Hypertension, hyperlipidemia, NSTEMI, PVD, urinary incontinence, CKD, and chronic osteomyelities w/ toes amputation who presented to [facility] with complains of progressive worsening right lower leg pain. Patient was found to have significant blood supply compromise to the right leg with pain at rest and extensive right common artery disease extending into the profunda. Problem list 1. Severe stenosis in the proximal superficial femoral artery status post endarterectomy on 03/22/18 2. GRECIA on CKD 3. Transaminitis 4. Anemia 5. History of PVD 6. History of Hypertension, Hyperlipidemia 7. Hypothyroidism On March 22 the patient was taken to the OR for common femoral artery endarterectomy and post procedure the patient was transferred to the intensive care unit for observation. There was no significant decrease in H&H postprocedure. The patient required 4 units of blood transfusion prior to the procedure with the recommendation by panel coverer to have had a H&H of 08/01 before procedure. His H&H has continued to remain stable post procedure. 0n 03/25 patient was transferred to telemetry, he was started on carvedilol while on the ICU which resulted in bradycardia. He was transferred to telemetry for close monitoring of his heart rate. Epistaxis: H&H is stable A/P 1 unit of PRBCs, Patient has history of epistaxis with nasal cauterization in the past Holding aspirin, Plavix, subcu heparin ENT consult appreciated Continue nasal packing and Keflex for TSS prophylaxis for now Plan is to remove the VAC on or Thursday To avoid straining and trauma after unpacking and he was nasal saline spray Melena: Patient had an episode of melena with blood clots yesterday It can be possibly due to severe epistaxis he had the night before EGD yesterday showed tension, clear esophageal ulcer, blood in the oropharynx most likely due to epistaxis Continue aspirin, Plavix, Continue to hold heparin for now Continue IV Protonix twice daily Heart failure with reduced ejection fraction * Ejection fraction of 20-30% reduced from 40-45% on echo from December 2017. Patient status post recent NSTEMI within last 6 weeks. * No plans for AICD placement at this time given the fact that his ejection fraction to be affected by the recent MRI, will continue to follow echocardiogram for improvement of ejection fraction. Dr. Botello and Dr. English on board. * No plans for Entresto because of kidney function. * Patient is off beta zamzam and ACEI/ARB's because of bradycardia. * Patient continue to be in normal sinus rhythm with 60-70 heart rate. GRECIA on CKD stage III Creatinine today is 1.1 at baseline Continue to follow up on nephrology recommendation * GRECIA likely due to contrast prior to admission for angiography peripheral vascular disease * Continue home dose of Lasix * Patient is diuresing well on the last 24 hour output -760 Severe stenosis in the proximal superficial femoral artery status post endarterectomy on 03/22/18 * Vascular and podiatry on board * Patient is perfusing well, normal capillary refill, right lower extremity warm to touch * Leukocytosis mostly active, no signs of infection * Silvadene for daily use by the nursing staff for dressing changes over the weekend * No indication for surgical intervention at this time as tissue was is superficial and not infectious * Continue aspirin and Plavix Hypothyroidism * Synthroid 25 MCG * Repeated TSH 5.56, free T4 1 0.27, total T3 0.55 * Consider increase Synthroid dose to 50 MCG given elevated TSH Diabetes mellitus * Patient is on insulin sliding scale low-dose and Levemir 4 units every afternoon. * Patient had high readings yesterday in 400 and was given 6 units of insulin aspirt, blood sugar dropped to 89. This morning blood sugar is 126 * We'll increase sliding scale to medium dose, continue Levemir 4 units every afternoon Anemia * Currently stable Transfuse 1 unit of PRBCs * Iron studies are suggestive for iron deficiency anemia. * Patient was started on ferric gluconate 8 doses per nephrology consultation. * Continue ferrous sulfate 325 mg 3 times a day. Transaminitis (resolved) * On presentation had ALT of 324 which improved and is back to normal on March 25 at 63. Persistent leukocytosis, right foot wound, status post right femoral endarterectomy WBC trending up Chest x-ray did not show any new opacities Urine analysis only showed 10 WBC Blood culture and urine culture and urine culture still pending MRI of the right foot to rule out osteomyelitis Restart home dose of Percocet 1 tablet p.o. twice daily daily ID and podiatry recommendation appreciated Patient is full code DVT prophylaxis with Alps Consistent carbohydrate diet (currently n.p.o. for EGD) Problem List: 1. Melena 2. Peripheral vascular disease Pain Ratin Pain Location: Right foot Pain Goal: Remain pain free Pain Plan: Pain pathway Tomorrow's Labs & Rationales: CBCT, BEP Bobby Hidalgodontrell 03/31/18 1039: Attending MD Review Statement Attending Statement Attending MD Statement: examined this patient, discuss w/resident/PA/OPERATIONAL INTELLIGENCE OFFICER, agreed w/resident/PA/OPERATIONAL INTELLIGENCE OFFICER, discussed with family, reviewed EMR data (avail), discussed with nursing, discussed with case mgmt, reviewed images, amended to note Attending Assessment/Plan: Patient seen/examined bedside. His WBC still increasing. So far prelim culture are negative. Obtain MRI foot as suggested by ID. Nasal packing removal as per ENT if no more bleeding events. Resumed antiplatelet therapy no clear contra indications from GI and ENT. Pain controlled. Plan of care discussed with patient bedside.
[2018-03-31 08:00] LABS: ABSOLUTE BASOPHIL COUNT 0 /CUMM (0.0-0.2); ABSOLUTE EOSINOPHIL COUNT 0.3 /CUMM (0.0-0.7); ABSOLUTE GRANULOCYTE CT 21.9 /CUMM (1.4-6.5); ABSOLUTE LYMPH COUNT 0.5 /CUMM (1.2-3.4); ABSOLUTE MONOCYTE COUNT 1.6 /CUMM (0.10-0.60); BASOPHIL % 0 % (0.0-2.0); EOSINOPHIL % 1.1 % (0-5); HEMATOCRIT 25.4 % (42-52); MEAN CORPUSCULAR HGB 29.3 PG (27.0-31.0); MEAN CORPUSCULAR HGB CONC 32.2 G/DL (33.0-37.0); MEAN PLATELET VOLUME 7.8 FL (7.4-10.4); PLATELET COUNT 256 /CUMM (130-400); RBC DISTRIBUTION WIDTH 21.3 % (11.5-14.5); RED BLOOD CELL CT 2.79 /CUMM (4.70-6.10); WHITE BLOOD CELL COUNT 24.3 /CUMM (4.8-10.8)
[2018-03-31 09:05] LABS: GRANULOCYTE % 90.4 % (42.2-75.2)
--- NOTE | 2018-03-31 10:54 | Event Note ---
Event Note Event Note: Patient developed nonsustained Vtach, 5 beats, no symptoms. No previous report of Vt ach. In setting of his low EF 20-30%, the incidient was reported to Dr. English and he will come and evaluate. Nurse Dara was made aware to report any Vtach. Attending was made aware too.
--- NOTE | 2018-03-31 14:05 | PN- Infect Dx ---
Subjective Subjective: Afebrile. He had an episode of nonsustained V. tach earlier today. He notes discomfort secondary to the rhino pocket in his left nare. He also notes dyspnea, which he attributes to the rhino pocket. He has no diarrhea or dysuria and notes no pain in the right leg or foot. Objective Last 24 Hrs of Vital Signs/I&O Vital Signs Date Time Temp Pulse Resp B/P B/P Pulse O2 O2 Flow FiO2 Mean Ox Delivery Rate 03/31 0634 98.3 72 20 126/68 95 Room Air 03/31 0000 95 Room Air 03/30 2146 98.5 75 20 122/64 96 Room Air 03/30 1514 98.6 77 20 120/68 96 Room Air Intake & Output 03/31 1600 03/31 0800 03/31 0000 Intake Total 360 300 Output Total 250 Balance 360 50 Intake, Oral 360 300 Output, Urine 250 Patient 174 lb Weight Weight Bed scale Measurement Method Physical Exam Other Physical Findings: He appears mildly dyspneic but in no acute distress HEENT rhino pocket in the left nare Lungs are clear Heart regular rhythm with a 2/6 systolic ejection murmur Abdomen is soft, nontender with positive bowel sounds Back no CVA tenderness Extremities right foot with necrotic eschar over the dorsum, with surrounding ulceration, with no purulent drainage or tenderness on palpation; mild erythema over the medial aspect of his right ankle, with no tenderness on palpation; right groin incision clean, with no erythema or drainage Results Last 24 Hours of Lab Results: Laboratory Tests 03/31 03/30 0608 1726 Chemistry Sodium (137 - 145 mmol/L) 139 Potassium (3.5 - 5.1 mmol/L) 4.7 Chloride (98 - 107 mmol/L) 105 Carbon Dioxide (22 - 30 mmol/L) 26 Anion Gap (5 - 16) 9 BUN (9 - 20 mg/dL) 40 H Creatinine (0.7 - 1.2 mg/dL) 1.1 Estimated GFR (>60 ml/min) > 60 BUN/Creatinine Ratio (7 - 25 %) 36.4 H Phosphorus (2.5 - 4.5 mg/dL) 2.9 Magnesium (1.6 - 2.3 mg/dL) 1.7 C-Reactive Prot, Quant (<1.0 mg/dL) 6.9 H Hematology CBC w Diff NO MAN DIFF REQ WBC (4.8 - 10.8 /CUMM) 24.3 H RBC (4.70 - 6.10 /CUMM) 2.79 L Hgb (14.0 - 18.0 G/DL) 8.2 L Hct (42 - 52 %) 25.4 L MCV (80.0 - 94.0 FL) 91.0 MCH (27.0 - 31.0 PG) 29.3 MCHC (33.0 - 37.0 G/DL) 32.2 L RDW (11.5 - 14.5 %) 21.3 H Plt Count (130 - 400 /CUMM) 256 MPV (7.4 - 10.4 FL) 7.8 Gran % (42.2 - 75.2 %) 90.4 H Lymphocytes % (20.5 - 51.1 %) 1.9 L Monocytes % (1.7 - 9.3 %) 6.6 Eosinophils % (0 - 5 %) 1.1 Basophils % (0.0 - 2.0 %) 0 Absolute Granulocytes (1.4 - 6.5 /CUMM) 21.9 H Absolute Lymphocytes (1.2 - 3.4 /CUMM) 0.5 L Absolute Monocytes (0.10 - 0.60 /CUMM) 1.6 H Absolute Eosinophils (0.0 - 0.7 /CUMM) 0.3 Absolute Basophils (0.0 - 0.2 /CUMM) 0 Urines Urinalysis LIGHT H Urine Color (YEL,AMB,STR) ALEKSANDR Urine Clarity (CLEAR) CLEAR Urine pH (5.0 - 8.0) 6.0 Ur Specific [place] (1.001 - 1.035) 1.020 Urine Protein (NEG,<30 MG/DL) TRACE H Urine Ketones (NEG) NEG Urine Nitrite (NEG) NEG Urine Bilirubin (NEG) NEG Urine Urobilinogen (0.1 - 1.0 EU/dl) 1.0 Ur Leukocyte Esterase (NEG) TRACE H Ur Microscopic SEDIMENT EXAMINED Urine RBC (0 - 5 /HPF) 1-3 Urine WBC (0 - 2 /HPF) 5-10 H Ur Epithelial Cells (NONE,FEW) FEW Urine Hemoglobin (NEG) TRACE-INTACT H Urine Glucose (N MG/DL) NEG Last 24 Hours of Sadi Results: Blood cultures 2 March 30 negative Urine culture March 30 negative Recent Imaging Studies: Chest x-ray March 30 reveals stable patchy and linear airspace opacities in the right mid and lower lung ley with an increasing right pleural effusion Assessment/Plan ID Impression: Worsening leukocytosis, with temperatures remaining normal, off antibiotics with recent blood cultures negative but with his chest x-ray from yesterday revealing increasing opacities in the right lung and an increasing pleural effusion, worrisome for pneumonia and possible empyema. A pulmonary embolism is possible, as he has been mostly in bed and off Heparin for the past week. His right foot and leg pain have resolved status post right common femoral endarterectomy 9 days ago, and his right foot does not reveal any signs of infection that would explain the leukocytosis. Suggestion: 1. CTA of the chest and pursue a thoracentesis if he has a tappable effusion 2. Attempt to obtain a sputum culture 3. Follow off antibiotics pending above
--- NOTE | 2018-03-31 14:42 | PN- Podiatry ---
Subjective Subjective: Patient is seen and evaluated at bedside. He reports discomfort in his nose and left eye secondary to packing for his epistaxis. He had an event of unsustained ventricular tachycardia this morning that was cared for by the primary team. The patient continues to deny fever, chills, nausea, vomiting, diaphoresis, chest pain, and shortness of breath during my examination. He denies pain in the right foot. Review of Systems: A 14 point review of systems was performed, and was found to be negative apart from the patient's complaints described above in the history of present illness. Objective Vital Signs and I&Os Vital Signs Date Time Temp Pulse Resp B/P B/P Pulse O2 O2 Flow FiO2 Mean Ox Delivery Rate 03/31 0634 98.3 72 20 126/68 95 Room Air 03/31 0000 95 Room Air 03/30 2146 98.5 75 20 122/64 96 Room Air 03/30 1514 98.6 77 20 120/68 96 Room Air Intake & Output 03/31 1600 03/31 0800 03/31 0000 03/30 1600 03/30 0800 03/30 0000 Intake Total 360 300 820 200 200 Output Total 250 550 425 650 Balance 360 50 270 -225 -450 Intake, IV 100 Intake, Oral 360 300 720 200 200 Number 1 1 Bowel Movements Output, Urine 250 550 425 650 Patient 174 lb 171 lb Weight Weight Bed scale Measurement Method Physical Exam: The patient continues to have nonpalpable pedal pulses, temperature gradient is now normal in the right lower extremity, unremarkable compared to the contralateral side. He continues to have good capillary refill time in the plantar forefoot. His peripheral neuro exam is unchanged. His muscle skeletal exam is unchanged. The large dorsal eschar shows some looseness on its medial edge, and this was debrided off from the first ray to the fourth ray using the sterile components of an instrument kit from the floor. Miniscule amounts of liquefactive subcutaneous fat necrosis were visualized, but no collections were found, and the vast majority of the base of the wound is fibro-granular and viable. The portion of the dorsal eschar over the fifth ray remains rigidly adhered and this was not explored. There remains no focal calor, no malodor, no fluctuance, no crepitus, no purulence. Current Medications: Current Medications Sig/Salome Start time Last Medication Dose Route Stop Time Status Admin Acetaminophen 500 MG Q6P PRN 03/30 0815 AC 03/30 PO 2148 Acetaminophen 1,000 MG Q6P PRN 03/30 0815 N/A 1 UNIT IV Albuterol Sulfate See Dose Q4-6 PRN PRN 03/17 1945 AC Insts (1) INH Ascorbic Acid 500 MG DAILY 03/18 0900 AC 03/31 PO 0935 Aspirin Buffered 81 MG QAM 03/30 1415 AC 03/31 PO 0935 Atorvastatin Calcium 20 MG 1700 03/24 1700 AC 03/30 PO 1753 Budesonide/ 2 PUF BID 03/17 2100 AC 03/31 Formoterol Fumarate INH 0934 Clopidogrel Bisulfate 75 MG DAILY 03/30 1415 AC 03/31 PO 1202 Cyanocobalamin 1,000 MCG DAILY 03/18 0900 AC 03/31 PO 0935 Digoxin 0.125 MG 1700 03/18 1700 AC 03/30 PO 1753 Ezetimibe 10 MG DAILY 03/18 0900 AC 03/31 PO 0935 Ferric Sodium 125 MG Q48 03/26 1200 AC 03/30 Gluconate Complex IV 04/09 1005 0900 Sodium Chloride 100 ML Ferrous Sulfate 325 MG TID 03/17 2100 AC 03/31 PO 0935 Furosemide 40 MG DAILY 03/26 1327 AC 03/31 PO 0935 Glycerin 2 SPRAY Q2P PRN 03/23 0500 AC 03/25 PO 0944 Insulin Aspart 0 TIDAC 03/29 1700 AC 03/30 SC 1753 Insulin Detemir 3 UNITS BID 03/31 0900 AC 03/31 SC 0934 Insulin Detemir 4 UNITS QPM 03/22 2100 DC 03/30 DC 2145 Levothyroxine Sodium 0.025 MG DAILY AC 03/18 0700 AC 03/31 PO 0634 Omeprazole 40 MG DAILY AC 03/30 0700 AC 03/31 PO 0634 Oxycodone/ 1 TAB BID 03/31 0900 AC 03/31 Acetaminophen PO 0914 Polyethylene Glycol 17 GM DAILY 03/25 1100 AC 03/31 PO 0933 Povidone Iodine 1 TULIO DAILY 03/29 0900 AC 03/30 TOP 1043 Senna/Docusate Sodium 2 TAB DAILY 03/25 1100 AC 03/31 PO 0935 Sertraline HCl 50 MG DAILY 03/18 0900 AC 03/31 PO 0935 Dose Instructions: (1)Albuterol Sulfate: 1-2 PUF Results Last 48 Hours of Labs: Laboratory Tests 03/31 03/30 0608 1726 Chemistry Sodium (137 - 145 mmol/L) 139 Potassium (3.5 - 5.1 mmol/L) 4.7 Chloride (98 - 107 mmol/L) 105 Carbon Dioxide (22 - 30 mmol/L) 26 Anion Gap (5 - 16) 9 BUN (9 - 20 mg/dL) 40 H Creatinine (0.7 - 1.2 mg/dL) 1.1 Estimated GFR (>60 ml/min) > 60 BUN/Creatinine Ratio (7 - 25 %) 36.4 H Phosphorus (2.5 - 4.5 mg/dL) 2.9 Magnesium (1.6 - 2.3 mg/dL) 1.7 C-Reactive Prot, Quant (<1.0 mg/dL) 6.9 H Hematology CBC w Diff NO MAN DIFF REQ WBC (4.8 - 10.8 /CUMM) 24.3 H RBC (4.70 - 6.10 /CUMM) 2.79 L Hgb (14.0 - 18.0 G/DL) 8.2 L Hct (42 - 52 %) 25.4 L MCV (80.0 - 94.0 FL) 91.0 MCH (27.0 - 31.0 PG) 29.3 MCHC (33.0 - 37.0 G/DL) 32.2 L RDW (11.5 - 14.5 %) 21.3 H Plt Count (130 - 400 /CUMM) 256 MPV (7.4 - 10.4 FL) 7.8 Gran % (42.2 - 75.2 %) 90.4 H Lymphocytes % (20.5 - 51.1 %) 1.9 L Monocytes % (1.7 - 9.3 %) 6.6 Eosinophils % (0 - 5 %) 1.1 Basophils % (0.0 - 2.0 %) 0 Absolute Granulocytes (1.4 - 6.5 /CUMM) 21.9 H Absolute Lymphocytes (1.2 - 3.4 /CUMM) 0.5 L Absolute Monocytes (0.10 - 0.60 /CUMM) 1.6 H Absolute Eosinophils (0.0 - 0.7 /CUMM) 0.3 Absolute Basophils (0.0 - 0.2 /CUMM) 0 Urines Urinalysis LIGHT H Urine Color (YEL,AMB,STR) ALEKSANDR Urine Clarity (CLEAR) CLEAR Urine pH (5.0 - 8.0) 6.0 Ur Specific [place] (1.001 - 1.035) 1.020 Urine Protein (NEG,<30 MG/DL) TRACE H Urine Ketones (NEG) NEG Urine Nitrite (NEG) NEG Urine Bilirubin (NEG) NEG Urine Urobilinogen (0.1 - 1.0 EU/dl) 1.0 Ur Leukocyte Esterase (NEG) TRACE H Ur Microscopic SEDIMENT EXAMINED Urine RBC (0 - 5 /HPF) 1-3 Urine WBC (0 - 2 /HPF) 5-10 H Ur Epithelial Cells (NONE,FEW) FEW Urine Hemoglobin (NEG) TRACE-INTACT H Urine Glucose (N MG/DL) NEG 03/30 0643 Chemistry Sodium (137 - 145 mmol/L) 139 Potassium (3.5 - 5.1 mmol/L) 4.5 Chloride (98 - 107 mmol/L) 107 Carbon Dioxide (22 - 30 mmol/L) 24 Anion Gap (5 - 16) 8 BUN (9 - 20 mg/dL) 42 H Creatinine (0.7 - 1.2 mg/dL) 1.1 Estimated GFR (>60 ml/min) > 60 BUN/Creatinine Ratio (7 - 25 %) 38.2 H Hematology CBC w Diff NO MAN DIFF REQ WBC (4.8 - 10.8 /CUMM) 22.9 H RBC (4.70 - 6.10 /CUMM) 2.80 L Hgb (14.0 - 18.0 G/DL) 8.3 L Hct (42 - 52 %) 25.4 L MCV (80.0 - 94.0 FL) 90.6 MCH (27.0 - 31.0 PG) 29.7 MCHC (33.0 - 37.0 G/DL) 32.8 L RDW (11.5 - 14.5 %) 20.8 H Plt Count (130 - 400 /CUMM) 249 MPV (7.4 - 10.4 FL) 7.8 Gran % (42.2 - 75.2 %) 90.2 H Lymphocytes % (20.5 - 51.1 %) 1.9 L Monocytes % (1.7 - 9.3 %) 7.5 Eosinophils % (0 - 5 %) 0.4 Basophils % (0.0 - 2.0 %) 0 Absolute Granulocytes (1.4 - 6.5 /CUMM) 20.6 H Absolute Lymphocytes (1.2 - 3.4 /CUMM) 0.4 L Absolute Monocytes (0.10 - 0.60 /CUMM) 1.7 H Absolute Eosinophils (0.0 - 0.7 /CUMM) 0.1 Absolute Basophils (0.0 - 0.2 /CUMM) 0 Assessment/Plan Assessment/Plan 67-year-old diabetic male with end-stage peripheral arterial disease with persistent critically high leukocytosis and a large patch of superficial soft tissue loss of the right foot with no clinical or radiographic evidence of acute infection. The patient was seen and evaluated at bedside. Out of concern for his increasing white count in the absence of other signs of foot infection, the large dorsal eschar was prepped with betadine and bluntly explored and mostly removed with a suture removal kit. This revealed miniscule amounts of liquefactive subcutaneous fat necrosis as it was removed, but did not reveal any deep ulcerations, did not reveal any purulence, do not reveal any tunneling lesions. The rigidly adhered portions of the eschar were dressed with betadine, and the viable tissue dorsally was irrigated and dressed with SSD and Xeroform, and both were incoporated into a dry sterile dressing. Agree with ID that the foot continues not to exhibit clinical or radiographic evidence of acute infection at this time. Agree with MRI as a further diagnostic measure in the absence of a confirmed source of WBC, as the remainder of his lower extremity workup has been negative for acute infection. Will continue to f/u daily and will reconsider surgical intervention if the MRI is positive. Core Measures Venous Thromboembolism VTE Risk Factors Age>40 No Mechanical VTE Prophylaxis d/t N/A MechProphylax Ordered No VTE Pharm Prophylaxis d/t NA PharmProphylax ordered
[2018-03-31 14:47] VITALS: BP 110/70
--- NOTE | 2018-03-31 17:27 | NUCLEAR MEDICINE REPORT ---
EXAMINATION: PULMONARY VENTILATION PERFUSION STUDY CLINICAL INFORMATION: Dyspnea, moderate clinical probability for pulmonary embolism. COMPARISON: The previous lung scan dated 04/29/2017 is available for comparison. A radiograph of the chest dated 03/30/2018 is available for comparison. CT scan of the chest dated 03/31/2018, the same date as this lung scan, is also available for comparison. TECHNIQUE: Serial gamma scintillation camera images were obtained over the posterior chest during the single breath, equilibrium rebreathing and washout of 8.1 mCi Xe 133 gas. The patient then received 4.0 mCi Tc-99m MAA intravenously and a 6-view perfusion study was performed. FINDINGS: Ventilation images: On the single breath and equilibrium images there is homogeneous distribution of gas bilaterally. There is decreased activity medially in the left lower lobe likely due to prominence of the cardiac silhouette. During the washout phase there is no abnormal retention. Perfusion images: No segmental perfusion defects are present. There is homogeneous distribution of activity bilaterally. There are no focal anatomic appearing perfusion defects present. The cardiac silhouette there is moderately dilated. There is some prominence of the interlobar fissure on the right. IMPRESSION: Very low probability of pulmonary embolism. The abnormalities described are likely due to bilateral pleural effusions and cardiomegaly.
--- NOTE | 2018-03-31 18:01 | CT SCAN REPORT ---
EXAMINATION: CT CHEST WITHOUT CONTRAST CLINICAL INFORMATION: Shortness of breath. Leukocytosis. Evaluate pneumonia and pleural effusion. COMPARISON: 01/18/2018 TECHNIQUE: Multidetector volumetric CT imaging of the chest was performed. Axial MIP volume rendering provided. Sagittal and coronal reformatted images were obtained. DLP: 330 mGy-cm FINDINGS: LUNGS AND PLEURA: Moderate centrilobular emphysema. Small right pleural effusion surrounded by mildly thickened visceral and parietal pleura. The pleural effusion appears loculated in the posteroinferior right hemithorax. Also, there is a loculated component extending along the major fissure. 0.4 cm calcified nodule in the right lower lobe is unchanged. There is chronic opacity of the right lower lobe -- likely atelectasis of the compressed lung -- similar in appearance compared to 01/18/2018. A small, 0.5 cm groundglass nodular opacity in the anterior left upper lobe is unchanged compared to 01/18/2018 (image 94, series 4). A peripheral, linear, hazy opacity in the lateral aspect of the left upper lobe is suggestive of atelectasis (image 76, series 4). Platelike atelectasis is present in the lingula. Xwjor-kz-enmrkobj sized left pleural effusion is new compared to 01/18/2018. Associated compressive atelectasis in the left lower lobe. MEDIASTINUM: Multichamber cardiac enlargement. Atherosclerotic disease of coronary arteries. Aortic valve is replaced. Atherosclerosis of the thoracic aorta without aneurysm. No pericardial effusion. The esophagus and thyroid gland are grossly unremarkable. LYMPHATICS: Mildly enlarged lymph nodes of the left axilla measure up to 1 cm short axis dimension and are smaller compared to 01/18/2018. No bulky hilar lymphadenopathy. Within the superior mediastinum, the largest right paratracheal lymph node is 1 cm short axis dimension, unchanged. Also, there is similar prominence of the lower paratracheal and subcarinal lymph nodes of the mediastinum. No worsening of adenopathy. UPPER ABDOMEN: Atherosclerotic calcification of aorta and branch vessels. Diffuse, mild edema of mesentery/omentum of the visualized upper abdomen. 5 cm simple cyst at the upper pole of the left kidney. SKELETAL AND CHEST WALL: Diffuse soft tissue edema of the chest wall (anasarca). Multiple old and subacute bilateral rib fractures. No acute findings in the degenerated spine. There is lack of osseous union of the sternotomy. Sternotomy wires are intact. IMPRESSION: 1. Cardiomegaly, diffuse soft tissue edema and pleural effusions. Findings consistent with anasarca. The [id number] sized left pleural effusion is new compared to 01/18/2018. The chronic, small right pleural effusion is loculated. The persistent opacity in the right lower lobe likely represents a chronically compressed lung/atelectasis. No overt pneumonia in either lung. 2. Moderate pulmonary emphysema. 3. Mild adenopathy of the left axilla is slightly improved compared to 01/18/2018. The mediastinal lymphadenopathy is unchanged.
--- NOTE | 2018-03-31 18:16 | ULTRASOUND REPORT ---
EXAMINATION: US TRIPLEX OF LOWER EXTREMITIES, BILATERAL CLINICAL INFORMATION: Leg swelling. Evaluate for deep vein thrombosis. COMPARISON: None TECHNIQUE: Color-flow triplex imaging with spectral analysis and compression Doppler were performed on the lower extremities. FINDINGS: The common femoral vein is compressible, bilaterally. The femoral arteries have pulsatile waveforms, likely secondary to elevated cardiac pressures. Within each proximal thigh, the visualized profunda femoris vein is patent. The visualized greater saphenous veins and saphenofemoral junctions are normal. Superficial femoral vein is patent in the proximal, mid and distal aspect of each thigh. Popliteal vein appears normal to the level of the trifurcation, bilaterally, and the visualized calf veins are unremarkable. There is subcutaneous tissue edema of the lower extremities. At the right popliteal fossa, a small Humphrey's cyst measures 1.7 x 0.5 x 2 cm. In the left popliteal fossa, a small Humphrey's cyst measures 2.9 x 0.6 x 1.7 cm. The patient is status post femoral bypass surgery. 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 IMPRESSION: - No evidence of deep vein thrombosis in either lower extremity. - Small, bilateral Hmuphrey cysts. 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
--- NOTE | 2018-03-31 18:53 | Event Note ---
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 Patient is currently on aspirin and Plavix. I discussed with surgical PA over the phone and she recommended calling Dr. Sanchez I called his office and asked for a call back, Dr. Farnsworth called me back, I explained to him the situation, and he recommended that as long as the patient does not have any pain or coldness in his left lower extremity that he does not need urgent intervention for now, and he mentioned that the patient will be assessed tomorrow morning by vascular surgery
--- NOTE | 2018-03-31 22:15 | PN- Cardiology ---
Subjective Subjective: * patient feels poorly and is short of breath * NSVT noted * creatinine 1.1 * moderate to severe anemia * increasing WBC count Objective Vital Signs and I&Os Vital Signs Date Time Temp Pulse Resp B/P B/P Pulse O2 O2 Flow FiO2 Mean Ox Delivery Rate 03/31 1900 97.7 77 22 94 Room Air 03/31 1447 98.8 72 20 110/70 93 Room Air 03/31 0634 98.3 72 20 126/68 95 Room Air 03/31 0000 95 Room Air Intake & Output 03/31 1600 03/31 0800 03/31 0000 03/30 1600 03/30 0800 03/30 0000 Intake Total 400 360 300 820 200 200 Output Total 300 250 550 425 650 Balance 100 360 50 270 -225 -450 Intake, IV 100 Intake, Oral 400 360 300 720 200 200 Number 0 1 1 Bowel Movements Output, Urine 300 250 550 425 650 Patient 174 lb 171 lb Weight Weight Bed scale Measurement Method Physical Exam: General: WD/WN male in NAD; lethargic and confused HEENT: NC/AT, PERRL, EOMI Neck: no JVD, no carotid bruit Heart: RRR with 2/6 systolic murmur Lungs: decreased breath sounds at the bases bilaterally Abdomen: soft, NT, +ve bowel sounds Extremities: no edema with venous stasis changes bilaterally, toe amputations bilaterally Assessment/Plan Assessment/Plan * This patient is very short of breath. He has decreased breath sounds at the bases bilaterally consistent with pleural effusions and appears to have some decompensated CHF in the setting of his low EF. I have a much lower suspicion of a pulmonary embolism. In consideration of his possible intolerance for contrast I would obtain more evidence to support a PE before pursuing a CT angiogram or obtain a V/Q scan instead. Obtain a D-dimer and ABG. If the patient has an elevated D-dimer, low pO2 and respiratory alkylosis then a CT angiogram would be reasonable. For now I would treat for CHF and give Lasix 40mg IV with repeated doses as needed. * This patient may have anemia due to renal insuffciency however a prior workup disclosed an increased reticulocyte count instead of a low retic count that goes along better with bleeding than decreased production. Melena has been noted. * In consideration of this patient's poor EF he was seen by Dr. Botello who is inclined to pursue AICD placement with HIS bundle pacing if the patient agrees. He was asked to follow up with Dr. Botello as an outpatient when more stable. At the moment his increased WBC count indicative of possible infection would make this a less than desireable time to place a device. Check his digoxin level. * A small dose of Coreg was tried with resultant bradycardia. This patient has tried beta blockers, ACEI and ARB's in the past with untoward side effects. We will avoid these medications for now. Continue telemetry? Yes
[2018-03-31 22:20] VITALS: BP 122/64
--- NOTE | 2018-04-01 01:10 | Event Note ---
Event Note Event Note: S:Patient's d-dimer was elevated and on ABGs he has low oxygen saturation and low PCO2 B:67-year-old male with PMH of aortic stenosis, CAD s/p CABG (08/2017), CHF ( last Echo 03/20/2018 that showed anterior wall hypokinesis and normal diastolic part in and reduced ejection fraction of 20-30% significant decrease from previous echo 3 months ago, Hypertension, hyperlipidemia, NSTEMI, PVD, urinary incontinence, CKD, and chronic osteomyelities w/ toes amputation who presented to [facility] with complains of progressive worsening right lower leg pain. A/P: There was high suspicion of pulmonary embolism although VQ scan was negative but considering his elevated d-dimer and low oxygen and low PCO2 we will consider CTA chest to rule out pulmonary embolism. Findings were discussed with attending doctor(Dr. Orr) and she agreed to order CTA to rule out pulmonary embolism. We will follow the results.
[2018-04-01 06:09] VITALS: BP 116/60
--- NOTE | 2018-04-01 07:20 | PN- Housestaff ---
Bal BROWN,[place] 04/01/18 0720: Subjective Follow-up For: Persistent leukocytosis Peripheral vascular disease status post right femoral endarterectomy Epistaxis, melena, hematuria intractable lower limb pain [improved] post procedure Multiple digit amputation Reduced ejection fraction of 20-30% Oliguria GRECIA on CKD improve Pulmonary edema Tele-Events Since Last Visit: No overnight events Subjective: pt was seen and examined, reports marked improvement of his SOB, Afebrile off antibiotics Review of Systems Constitutional: Reports: see HPI. Objective Last 24 Hrs of Vital Signs/I&O Vital Signs Date Time Temp Pulse Resp B/P B/P Pulse O2 O2 Flow FiO2 Mean Ox Delivery Rate 04/01 0800 97 Room Air 04/01 0609 98.1 75 20 116/60 93 Room Air 04/01 0000 Room Air 03/31 2220 98.2 72 18 122/64 92 Room Air 03/31 1900 97.7 77 22 94 Room Air Intake & Output 04/01 1600 04/01 0800 04/01 0000 Intake Total 360 120 540 Output Total 550 433 5745 Balance 110 -580 -760 Intake, IV 10 200 Intake, Oral 350 120 340 Number 2 Bowel Movements Output, Urine 567 367 [id number] Patient 174 lb Weight Weight Bed scale Measurement Method Physical Exam General Appearance: Alert, Oriented X3, Cooperative, No Acute Distress HEENT: Atraumatic, PERRLA, EOMI, Mucous Membr. moist/pink Cardiovascular: Normal S1, Normal S2, No Murmurs Lungs: Clear to Auscultation Abdomen: Normal Bowel Sounds, Soft, No Tenderness Extremities: right foot in surgical dressing Assessment/Plan Assessment: Mr. Almanzar is a 67-year-old male with PMH of aortic stenosis, CAD s/p CABG (2016), CHF (last Echo 03/20/2018 that showed anterior wall hypokinesis and normal diastolic part in and reduced ejection fraction of 20-30% significant decrease from previous echo 3 months ago, Hypertension, hyperlipidemia, NSTEMI, PVD, urinary incontinence, CKD, and chronic osteomyelities w/ toes amputation who presented to [facility] with complains of progressive worsening right lower leg pain. PatienMr. Almanzar is a 67-year-old male with PMH of aortic stenosis, CAD s/p CABG (08/2017), CHF (last Echo 03/20/2018 that showed anterior wall hypokinesis and normal diastolic part in and reduced ejection fraction of 20-30% significant decrease from previous echo 3 months ago, Hypertension, hyperlipidemia, NSTEMI, PVD, urinary incontinence, CKD, and chronic osteomyelities w/ toes amputation who presented to [facility] with complains of progressive worsening right lower leg pain. Patient was found to have significant blood supply compromise to the right leg with pain at rest and extensive right common artery disease extending into the profunda. Problem list 1. Severe stenosis in the proximal superficial femoral artery status post endarterectomy on 03/22/18 2. GRECIA on CKD 3. Transaminitis 4. Anemia 5. History of PVD 6. History of Hypertension, Hyperlipidemia 7. Hypothyroidism On March 22 the patient was taken to the OR for common femoral artery endarterectomy and post procedure the patient was transferred to the intensive care unit for observation. There was no significant decrease in H&H postprocedure. The patient required 4 units of blood transfusion prior to the procedure with the recommendation by legal billing clerk to have had a H&H of 08/01 before procedure. His H&H has continued to remain stable post procedure. 0n 03/25 patient was transferred to telemetry, he was started on carvedilol while on the ICU which resulted in bradycardia. He was transferred to telemetry for close monitoring of his heart rate. Epistaxis: H&H is stable A/P 1 unit of PRBCs, Patient has history of epistaxis with nasal cauterization in the past Holding aspirin, Plavix, subcu heparin ENT consult appreciated Continue nasal packing and Keflex for TSS prophylaxis for now Plan is to remove the VAC on or Thursday To avoid straining and trauma after unpacking and he was nasal saline spray Melena: Patient had an episode of melena with blood clots yesterday It can be possibly due to severe epistaxis he had the night before EGD yesterday showed tension, clear esophageal ulcer, blood in the oropharynx most likely due to epistaxis Continue aspirin, Plavix, Continue to hold heparin for now Continue IV Protonix twice daily Heart failure with reduced ejection fraction * Ejection fraction of 20-30% reduced from 40-45% on echo from December 2017. Patient status post recent NSTEMI within last 6 weeks. * No plans for AICD placement at this time given the fact that his ejection fraction to be affected by the recent MRI, will continue to follow echocardiogram for improvement of ejection fraction. Dr. Botello and Dr. English on board. * No plans for Entresto because of kidney function. * Patient is off beta zamzam and ACEI/ARB's because of bradycardia. * Patient continue to be in normal sinus rhythm with 60-70 heart rate. GRECIA on CKD stage III Creatinine today is 1.1 at baseline Continue to follow up on nephrology recommendation * GRECIA likely due to contrast prior to admission for angiography peripheral vascular disease * Continue home dose of Lasix * Patient is diuresing well on the last 24 hour output -760 Severe stenosis in the proximal superficial femoral artery status post endarterectomy on 03/22/18 * Vascular and podiatry on board * Patient is perfusing well, normal capillary refill, right lower extremity warm to touch * Leukocytosis mostly active, no signs of infection * Silvadene for daily use by the nursing staff for dressing changes over the weekend * No indication for surgical intervention at this time as tissue was is superficial and not infectious * Continue aspirin and Plavix Hypothyroidism * Synthroid 25 MCG * Repeated TSH 5.56, free T4 1 0.27, total T3 0.55 * Consider increase Synthroid dose to 50 MCG given elevated TSH Diabetes mellitus * Patient is on insulin sliding scale low-dose and Levemir 4 units every afternoon. * Patient had high readings yesterday in 400 and was given 6 units of insulin aspirt, blood sugar dropped to 89. This morning blood sugar is 126 * We'll increase sliding scale to medium dose, continue Levemir 4 units every afternoon Anemia * Currently stable Transfuse 1 unit of PRBCs * Iron studies are suggestive for iron deficiency anemia. * Patient was started on ferric gluconate 8 doses per nephrology consultation. * Continue ferrous sulfate 325 mg 3 times a day. Transaminitis (resolved) * On presentation had ALT of 324 which improved and is back to normal on March 25 at 63. Persistent leukocytosis, right foot wound, status post right femoral endarterectomy WBC slowly trended down Chest x-ray did not show any new opacities CT chest showed new left-sided pleural effusion in addition to the old loculated right-sided pleural effusion Ultrasound guided thoracocentesis, send pleural fluid for culture sensitivity, microscopy, pH, LDH Urine analysis only showed 10 WBC Blood culture and urine culture and urine culture still pending MRI of the right foot to ruled out osteomyelitis Continue home dose of Percocet 1 tablet p.o. twice daily daily ID and podiatry recommendation appreciated Patient is full code DVT prophylaxis with Alps Consistent carbohydrate diet (currently n.p.o. for EGD) Problem List: 1. Melena 2. Peripheral vascular disease 3. HFrEF (heart failure with reduced ejection fraction) Pain Ratin Pain Location: Nose Pain Goal: Pain 4 or less Pain Plan: Pathway Tomorrow's Labs & Rationales: CBC BEP Tien Hidalgo 04/01/18 1243: Attending MD Review Statement Attending Statement Attending MD Statement: examined this patient, discuss w/resident/PA/BUTTON MAKER AND INSTALLER, agreed w/resident/PA/BUTTON MAKER AND INSTALLER, discussed with family, reviewed EMR data (avail), discussed with nursing, discussed with case mgmt, reviewed images, amended to note Attending Assessment/Plan: Patient seen/examined bedside. Denies any new complaints. Patient CT chest with no evidence of pneumonia but found to have moderate sized pleural effusion. He has recurrent effusion in past. Last tapped in Sep 2017. V/Q scan neagtive for PE. Patient with persistent leukocytosis and MRI inconclusive of ostemomyelitis. ID suggested to obtain thoracentesis. Consult IR. On ASA/plavix as antiplatelet therapy for CAD and systolic heart failure and peripharal vascular disease. Cardiology ok to hold for procedure but resume DAPT as able. gi/dvt prophylaxis
[2018-04-01 07:49] LABS: ABSOLUTE BASOPHIL COUNT 0 /CUMM (0.0-0.2); ABSOLUTE EOSINOPHIL COUNT 0.2 /CUMM (0.0-0.7); ABSOLUTE GRANULOCYTE CT 18.7 /CUMM (1.4-6.5); ABSOLUTE LYMPH COUNT 0.5 /CUMM (1.2-3.4); ABSOLUTE MONOCYTE COUNT 1.5 /CUMM (0.10-0.60); BASOPHIL % 0 % (0.0-2.0); EOSINOPHIL % 1.2 % (0-5); HEMATOCRIT 23.5 % (42-52); MEAN CORPUSCULAR HGB 29.7 PG (27.0-31.0); MEAN CORPUSCULAR HGB CONC 32.7 G/DL (33.0-37.0); MEAN CORPUSCULAR VOLUME 90.8 FL (80.0-94.0); MEAN PLATELET VOLUME 7.7 FL (7.4-10.4); RBC DISTRIBUTION WIDTH 22.2 % (11.5-14.5); RED BLOOD CELL CT 2.59 /CUMM (4.70-6.10)
--- NOTE | 2018-04-01 08:18 | MRI REPORT ---
EXAMINATION: MRI FOOT WITHOUT CONTRAST, RIGHT CLINICAL INFORMATION: Osteomyelitis. COMPARISON: Radiographs of the foot, 03/18/2018 and 03/29/2018 TECHNIQUE: Noncontrast multiplanar, multisequence MR imaging evaluation of the right foot was performed on a high-field 1.5 Melly magnet. FINDINGS: Diffuse edema in subcutaneous tissues of the ankle and foot and subcutaneous tissue loss lateral to the 5th metatarsophalangeal joint. No evidence of focal fluid collection. There is varus deformity of the fifth toe; 0.4 cm focus of subcortical cystlike change is present in the lateral aspect of the 5th metatarsal head. The STIR images demonstrate marrow edema of the 5th metatarsal and proximal phalanx. Although this suggests possibility of osteomyelitis, there is no significant loss of fatty marrow signal intensity within these bones on the T1-weighted images. Therefore, the marrow edema is considered to be more likely reactive in nature. No soft tissue abscess is identified on this noncontrast examination. The 1st - 4th toes are amputated through the metatarsals. Subarticular bone marrow edema within the medial aspect of the talar head is consistent with stress related change. Bones have normal alignment at the Chopart and Lisfranc joints. There are degenerative subchondral cystic changes at the 2nd and 5th tarsometatarsal joints. Diffuse atrophy and fatty replacement of muscles of the foot, which appear edematous on the STIR images. These changes could be secondary to chronic neuropathy or myopathy. The central cord of plantar aponeurosis measures at least 0.6 cm thick at its calcaneal attachment where there is a prominent plantar calcaneal enthesophyte. Findings consistent with chronic plantar fasciosis; no fascial tear. Small ankle joint effusion is present. There appears to be thinning of articular cartilage of the ankle joint with mild osteophyte formation. The amount of fluid in the flexor hallucis longus tendon sheath appears to be out of proportion to the volume of fluid in the ankle joint; therefore, this suggests possibility of flexor hallucis longus tenosynovitis. No tendon tear. IMPRESSION: - The STIR images demonstrate marrow edema of the 5th metatarsal and proximal phalanx. Although this suggests possibility of osteomyelitis, there is no significant loss of fatty marrow signal intensity within these bones on the T1-weighted images. No convincing osteomyelitis. - Soft tissue loss is observed lateral to the region of the 5th metatarsophalangeal joint. No evidence of soft tissue abscess on this noncontrast examination. - Mild osteoarthritis of the ankle. Other findings as noted above, including fluid distention of the flexor hallucis longus tendon sheath, suggestive of FHL tenosynovitis.
[2018-04-01 08:37] LABS: GRANULOCYTE % 89.2 % (42.2-75.2); PLATELET COUNT 268 /CUMM (130-400)
--- NOTE | 2018-04-01 10:44 | PN- Infect Dx ---
Subjective Subjective: Afebrile. He feels poorly with some dyspnea and cough, which is mostly nonproductive. He does not report any chest pain. He does note some discomfort in the right foot following removal of the eschar yesterday. He has had no further epistaxis. Objective Last 24 Hrs of Vital Signs/I&O Vital Signs Date Time Temp Pulse Resp B/P B/P Pulse O2 O2 Flow FiO2 Mean Ox Delivery Rate 04/01 0609 98.1 75 20 116/60 93 Room Air 04/01 0000 Room Air 03/31 2220 98.2 72 18 122/64 92 Room Air 03/31 1900 97.7 77 22 94 Room Air 03/31 1447 98.8 72 20 110/70 93 Room Air Intake & Output 04/01 1600 04/01 0800 04/01 0000 Intake Total 120 540 Output Total 700 1300 Balance -580 -760 Intake, IV 200 Intake, Oral 120 340 Number 2 Bowel Movements Output, Urine 700 1300 Patient 174 lb Weight Weight Bed scale Measurement Method Physical Exam Other Physical Findings: He appears mildly uncomfortable but in no acute distress HEENT rhino pocket in place in the left nare Lungs decreased breath sounds at the left base; crackles at the right base Heart regular rhythm with a 2/6 systolic ejection murmur Extremities right foot dressing intact; both feet warm to touch Results Last 24 Hours of Lab Results: Laboratory Tests 04/01 03/31 0608 2100 Blood Gas pH (7.35 - 7.45 PH) 7.42 pCO2 (35 - 45 TORR) 34 L pO2 (80 - 100 TORR) 76 L HCO3 (21 - 28 MEQ/L) 22 ABG O2 Sat (Measured) (>96.0 %) 94.0 L P-50 (Temp Corrected) N Carboxyhemoglobin (1.5 - 5.0 %) 0.7 L O2 Concentration % R/A Temperature (97.0 - 100.0 FARH) 97.7 Chemistry Sodium (137 - 145 mmol/L) 138 Potassium (3.5 - 5.1 mmol/L) 4.9 Chloride (98 - 107 mmol/L) 104 Carbon Dioxide (22 - 30 mmol/L) 26 Anion Gap (5 - 16) 8 BUN (9 - 20 mg/dL) 39 H Creatinine (0.7 - 1.2 mg/dL) 1.2 Estimated GFR (>60 ml/min) > 60 BUN/Creatinine Ratio (7 - 25 %) 32.5 H Hematology CBC w Diff NO MAN DIFF REQ WBC (4.8 - 10.8 /CUMM) 21.0 H RBC (4.70 - 6.10 /CUMM) 2.59 L Hgb (14.0 - 18.0 G/DL) 7.7 L Hct (42 - 52 %) 23.5 L MCV (80.0 - 94.0 FL) 90.8 MCH (27.0 - 31.0 PG) 29.7 MCHC (33.0 - 37.0 G/DL) 32.7 L RDW (11.5 - 14.5 %) 22.2 H Plt Count (130 - 400 /CUMM) 268 MPV (7.4 - 10.4 FL) 7.7 Gran % (42.2 - 75.2 %) 89.2 H Lymphocytes % (20.5 - 51.1 %) 2.4 L Monocytes % (1.7 - 9.3 %) 7.2 Eosinophils % (0 - 5 %) 1.2 Basophils % (0.0 - 2.0 %) 0 Absolute Granulocytes (1.4 - 6.5 /CUMM) 18.7 H Absolute Lymphocytes (1.2 - 3.4 /CUMM) 0.5 L Absolute Monocytes (0.10 - 0.60 /CUMM) 1.5 H Absolute Eosinophils (0.0 - 0.7 /CUMM) 0.2 Absolute Basophils (0.0 - 0.2 /CUMM) 0 Miscellaneous Phlebotomy Draw Site RIGHT RADIAL Toxicology Digoxin (0.8 - 2.0 ng/mL) 1.0 03/31 1935 Coagulation D-Dimer High Sensitivty (0 - 243 ng/ml) 1109 H Last 24 Hours of Sadi Results: Blood cultures x 2 March 30 negative Urine culture March 30 negative Recent Imaging Studies: CT of the chest March 31 reveals cardiomegaly, with a small to moderate left pleural effusion, not seen on the previous CT scan from January 18, 2018, and a chronic, small right pleural effusion that appears loculated; compressed lung/ atelectasis in the right lower lobe; moderate pulmonary emphysema Dopplers of both lower extremities March 31 no evidence of DVT, but 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 The CT scan did reveal a moderate sized pleural effusion, not seen on the previous CT scan from 2 months ago and a thoracentesis will need to be considered to rule out an empyema or other process. The significance of the loculated right effusion is unclear as it was present on his previous CT scan. His right foot eschar was removed yesterday, with no evidence of any deep infection, and his MRI of the foot was negative for osteomyelitis, now 10 days status post right common femoral endarterectomy for peripheral vascular disease. Suggestion: 1. Would pursue a left thoracentesis 2. Continue to follow his temperatures and white blood cell count off antibiotics
--- NOTE | 2018-04-01 13:17 | PN- Vascular Surgery ---
Surgical Brief Attending Note Brief Attending Note: pt seen and examined. s/p right common femoral endartectomy for ischemic rest pain. has previous right sfa stents. rest pain improved. right groin incision c/d/i. podiatry following right foot dorsal wound-- they debrided eschar. appears necrosis currently only superficial. has good signal in foot and wwp. continues to have elevated wbc. having sob and appears likely from repiratory infection. --from vascular perspective would start plavix when not contraindicated. --no furthter intervention at this time --continue wound care per podiatry --can fu with upon discharge.
--- NOTE | 2018-04-01 13:24 | PN- Podiatry ---
Subjective Subjective: Patient is seen and evaluated at bedside for demarcating tissue loss on the right foot secondary to peripheral arterial disease. Patient continues to do well status post revascularization, but reports a new onset pain in the heel. The patient had an MRI this morning to rule out osteomyelitis which was negative. Patient continues to deny fever, chills, nausea, vomiting, diaphoresis, shortness of breath, chest pain at the time of my examination. He is afebrile with vital signs stable in no apparent distress at the time of my examination. Review of Systems: A 14 point review of systems was performed, and was found to be negative apart from the patient's complaints described above in the history of present illness. Objective Vital Signs and I&Os Vital Signs Date Time Temp Pulse Resp B/P B/P Pulse O2 O2 Flow FiO2 Mean Ox Delivery Rate 04/01 0800 97 Room Air 04/01 0609 98.1 75 20 116/60 93 Room Air 04/01 0000 Room Air 03/31 2220 98.2 72 18 122/64 92 Room Air 03/31 1900 97.7 77 22 94 Room Air 03/31 1447 98.8 72 20 110/70 93 Room Air Intake & Output 04/01 1600 04/01 0800 04/01 0000 03/31 1600 03/31 0800 03/31 0000 Intake Total 120 540 400 360 300 Output Total 700 1300 300 250 Balance -580 -760 100 360 50 Intake, IV 200 Intake, Oral 120 340 400 360 300 Number 2 0 Bowel Movements Output, Urine 700 1300 300 250 Patient 174 lb 174 lb Weight Weight Bed scale Bed scale Measurement Method Physical Exam: The patient's peripheral neuro exam is unchanged, the patient's peripheral vascular examination is unchanged, the patient's musculoskeletal exam is unchanged. There is a new onset unstageable decubitus lesion with a fibro- granular base and a central eschar on the posterior right heel. There are no such changes on the left heel. The dorsal lesion remains a dry eschar over the fifth ray, with a fibro-granular superficial wound over the remainder of the dorsum of the foot. There remains no focal edema, no focal erythema, no calor, no fluctuance, no crepitus, no malodor, no purulence. Current Medications: Current Medications Sig/Salome Start time Last Medication Dose Route Stop Time Status Admin Acetaminophen 500 MG Q6P PRN 03/30 0815 AC 03/30 PO 2148 Acetaminophen 1,000 MG Q6P PRN 03/30 0815 AC N/A 1 UNIT IV Albuterol Sulfate See Dose Q4-6 PRN PRN 03/17 194 Insts (1) INH Ascorbic Acid 500 MG DAILY 03/18 0900 AC 04/01 PO 0849 Aspirin Buffered 81 MG QAM 03/30 1415 AC 04/01 PO 0851 Atorvastatin Calcium 20 MG 1700 03/24 1700 AC 03/31 PO 1843 Budesonide/ 2 PUF BID 03/17 2100 AC 04/01 Formoterol Fumarate INH 0850 Clopidogrel Bisulfate 75 MG DAILY 03/30 1415 AC 04/01 PO 0849 Cyanocobalamin 1,000 MCG DAILY 03/18 0900 AC 04/01 PO 0849 Digoxin 0.125 MG 1700 03/18 1700 AC 03/31 PO 1844 Ezetimibe 10 MG DAILY 03/18 0900 AC 04/01 PO 0849 Ferric Sodium 125 MG Q48 03/26 1200 AC 03/30 Gluconate Complex IV 04/09 1005 0900 Sodium Chloride 100 ML Ferrous Sulfate 325 MG TID 03/17 2100 AC 04/01 PO 0849 Furosemide 40 MG .STK-MED ONE 03/31 1627 DC IV 03/31 1628 Furosemide 40 MG ONCE ONE 03/31 1510 DC 03/31 IV 03/31 1511 1502 Furosemide 40 MG DAILY 03/26 1327 AC 04/01 PO 0849 Glycerin 2 SPRAY Q2P PRN 03/23 0500 AC 03/25 PO 0944 Insulin Aspart 0 TIDAC 03/29 1700 AC 03/30 SC 1753 Insulin Detemir 3 UNITS BID 03/31 0900 04/01 SC 0845 Levothyroxine Sodium 0.025 MG DAILY AC 03/18 0700 AC 04/01 PO 0556 Magnesium Sulfate 1 GM Q2H 03/31 1545 DC 03/31 Dextrose/Water 100 ML IV 03/31 1944 2131 Omeprazole 40 MG DAILY AC 03/30 0700 AC 04/01 PO 0555 Oxycodone/ 1 TAB ONCE ONE 04/01 0230 DC 04/01 Acetaminophen PO 04/01 0231 0226 Oxycodone/ 1 TAB BID 03/31 0900 AC 04/01 Acetaminophen PO 0844 Polyethylene Glycol 17 GM DAILY 03/25 1100 AC 04/01 PO 0846 Povidone Iodine 1 TULIO DAILY 03/29 0900 AC 04/01 TOP 1309 Senna/Docusate Sodium 2 TAB DAILY 03/25 1100 AC 04/01 PO 0849 Sertraline HCl 50 MG DAILY 03/18 09 AC 04/01 PO 0849 Dose Instructions: (1)Albuterol Sulfate: 1-2 PUF Results Last 48 Hours of Labs: Laboratory Tests 04/01 03/31 0608 2100 Blood Gas pH (7.35 - 7.45 PH) 7.42 pCO2 (35 - 45 TORR) 34 L pO2 (80 - 100 TORR) 76 L HCO3 (21 - 28 MEQ/L) 22 ABG O2 Sat (Measured) (>96.0 %) 94.0 L P-50 (Temp Corrected) N Carboxyhemoglobin (1.5 - 5.0 %) 0.7 L O2 Concentration % R/A Temperature (97.0 - 100.0 FARH) 97.7 Chemistry Sodium (137 - 145 mmol/L) 138 Potassium (3.5 - 5.1 mmol/L) 4.9 Chloride (98 - 107 mmol/L) 104 Carbon Dioxide (22 - 30 mmol/L) 26 Anion Gap (5 - 16) 8 BUN (9 - 20 mg/dL) 39 H Creatinine (0.7 - 1.2 mg/dL) 1.2 Estimated GFR (>60 ml/min) > 60 BUN/Creatinine Ratio (7 - 25 %) 32.5 H Total Bilirubin (0.2 - 1.3 mg/dL) 0.4 Direct Bilirubin (< 0.4 mg/dL) 0.4 AST (17 - 59 U/L) 33 ALT (21 - 72 U/L) 54 Alkaline Phosphatase (< 127 U/L) 92 Lactate Dehydrogenase (313 - 618 U/L) 537 Total Protein (6.3 - 8.2 g/dL) 6.5 Albumin (3.5 - 5.0 g/dL) 2.5 L Hematology CBC w Diff NO MAN DIFF REQ WBC (4.8 - 10.8 /CUMM) 21.0 H RBC (4.70 - 6.10 /CUMM) 2.59 L Hgb (14.0 - 18.0 G/DL) 7.7 L Hct (42 - 52 %) 23.5 L MCV (80.0 - 94.0 FL) 90.8 MCH (27.0 - 31.0 PG) 29.7 MCHC (33.0 - 37.0 G/DL) 32.7 L RDW (11.5 - 14.5 %) 22.2 H Plt Count (130 - 400 /CUMM) 268 MPV (7.4 - 10.4 FL) 7.7 Gran % (42.2 - 75.2 %) 89.2 H Lymphocytes % (20.5 - 51.1 %) 2.4 L Monocytes % (1.7 - 9.3 %) 7.2 Eosinophils % (0 - 5 %) 1.2 Basophils % (0.0 - 2.0 %) 0 Absolute Granulocytes (1.4 - 6.5 /CUMM) 18.7 H Absolute Lymphocytes (1.2 - 3.4 /CUMM) 0.5 L Absolute Monocytes (0.10 - 0.60 /CUMM) 1.5 H Absolute Eosinophils (0.0 - 0.7 /CUMM) 0.2 Absolute Basophils (0.0 - 0.2 /CUMM) 0 Miscellaneous Phlebotomy Draw Site RIGHT RADIAL Toxicology Digoxin (0.8 - 2.0 ng/mL) 1.0 03/31 03/31 1935 0608 Chemistry Sodium (137 - 145 mmol/L) 139 Potassium (3.5 - 5.1 mmol/L) 4.7 Chloride (98 - 107 mmol/L) 105 Carbon Dioxide (22 - 30 mmol/L) 26 Anion Gap (5 - 16) 9 BUN (9 - 20 mg/dL) 40 H Creatinine (0.7 - 1.2 mg/dL) 1.1 Estimated GFR (>60 ml/min) > 60 BUN/Creatinine Ratio (7 - 25 %) 36.4 H Phosphorus (2.5 - 4.5 mg/dL) 2.9 Magnesium (1.6 - 2.3 mg/dL) 1.7 C-Reactive Prot, Quant (<1.0 mg/dL) 6.9 H Coagulation D-Dimer High Sensitivty (0 - 243 ng/ml) 1109 H Hematology CBC w Diff NO MAN DIFF REQ WBC (4.8 - 10.8 /CUMM) 24.3 H RBC (4.70 - 6.10 /CUMM) 2.79 L Hgb (14.0 - 18.0 G/DL) 8.2 L Hct (42 - 52 %) 25.4 L MCV (80.0 - 94.0 FL) 91.0 MCH (27.0 - 31.0 PG) 29.3 MCHC (33.0 - 37.0 G/DL) 32.2 L RDW (11.5 - 14.5 %) 21.3 H Plt Count (130 - 400 /CUMM) 256 MPV (7.4 - 10.4 FL) 7.8 Gran % (42.2 - 75.2 %) 90.4 H Lymphocytes % (20.5 - 51.1 %) 1.9 L Monocytes % (1.7 - 9.3 %) 6.6 Eosinophils % (0 - 5 %) 1.1 Basophils % (0.0 - 2.0 %) 0 Absolute Granulocytes (1.4 - 6.5 /CUMM) 21.9 H Absolute Lymphocytes (1.2 - 3.4 /CUMM) 0.5 L Absolute Monocytes (0.10 - 0.60 /CUMM) 1.6 H Absolute Eosinophils (0.0 - 0.7 /CUMM) 0.3 Absolute Basophils (0.0 - 0.2 /CUMM) 0 03/30 1726 Urines Urinalysis LIGHT H Urine Color (YEL,AMB,STR) ALEKSANDR Urine Clarity (CLEAR) CLEAR Urine pH (5.0 - 8.0) 6.0 Ur Specific [place] (1.001 - 1.035) 1.020 Urine Protein (NEG,<30 MG/DL) TRACE H Urine Ketones (NEG) NEG Urine Nitrite (NEG) NEG Urine Bilirubin (NEG) NEG Urine Urobilinogen (0.1 - 1.0 EU/dl) 1.0 Ur Leukocyte Esterase (NEG) TRACE H Ur Microscopic SEDIMENT EXAMINED Urine RBC (0 - 5 /HPF) 1-3 Urine WBC (0 - 2 /HPF) 5-10 H Ur Epithelial Cells (NONE,FEW) FEW Urine Hemoglobin (NEG) TRACE-INTACT H Urine Glucose (N MG/DL) NEG Assessment/Plan Assessment/Plan 67-year-old diabetic male with end-stage peripheral arterial disease, substantial superficial soft tissue loss from arterial disease, substantial superficial soft tissue loss demarcating on the dorsum of the right foot, and a new onset unstageable decubitus lesion of the posterior right heel. Patient was seen and evaluated at bedside A Betadine soaked gauze dressing was placed on the right foot MRI was reviewed, and I agree with the findings, and these were discussed with the patient The patient may continue weightbearing as tolerated in a flat surgical shoe and a protective dressing Wound continues to show no acute clinical or radiographic evidence of acute infection, acute osteomyelitis, gas, or abscesses. Wound consider other sources of infection for WBC, or a multifactorial WBC including reactive leukocytosis. Will continue to f/u daily Case d/w Vascular Surgery Core Measures Venous Thromboembolism VTE Risk Factors Age>40 No Mechanical VTE Prophylaxis d/t N/A MechProphylax Ordered No VTE Pharm Prophylaxis d/t NA PharmProphylax ordered
[2018-04-01 14:50] VITALS: BP 118/66
--- NOTE | 2018-04-01 14:58 | RADIOLOGY REPORT ---
EXAMINATION:\H\ \N\XR CHEST CLINICAL INFORMATION: Status post left thoracentesis. Rule out pneumothorax. COMPARISON: 03/30/2018 TECHNIQUE: Frontal view of the chest was obtained. FINDINGS: Median sternotomy wires appear intact. The lungs are well expanded. There is improvement of the left-sided pleural effusion. Streaky left basilar linear atelectasis noted. No pneumothorax. Residual small right pleural effusion with fluid along the right minor fissure. The cardiomediastinal silhouette is unchanged. IMPRESSION: No significant left-sided pleural effusion remaining. Linear left basilar atelectasis. No pneumothorax. No significant change in small right pleural effusion with fluid along the right minor fissure.
--- NOTE | 2018-04-01 16:35 | ULTRASOUND REPORT ---
PROCEDURE: Thoracentesis CLINICAL INFORMATION: Pleural Effusion COMPARISON: Chest CT 03/31/2018 TECHNIQUE: Indirect ultrasound guided thoracentesis using a 5 [place] Yueh catheter. FINDINGS: Informed consent was obtained from the patient prior to the procedure. During this process, the procedure alternatives were explained, along with the intended outcome and benefits. The risks of the procedure, as well as the risk of not doing the procedure, was discussed. The patient was given the opportunity to ask questions regarding the procedure and appeared competent to make medical decisions. A signed consent form which documents this discussion was placed in the medical record. A timeout procedure was performed. Ultrasound evaluation of the chest for pleural fluid was performed. A small to moderate pleural effusion is noted on the left side. Using standard interventional and sterile techniques, lidocaine was used to anesthetize the region. A 5 [place] Yueh catheter was introduced into the left pleural fluid using standard safety needle technique. Approximately 550 mL of blood-tinged, nonclotting fluid was removed into the Vacutainer bottles. The catheter was then removed. Good hemostasis was achieved. The patient tolerated the procedure well. A sterile dressing was placed. The patient was discharged from the department in stable condition. Patient scheduled for post procedure followup x-ray. COMPLICATIONS: None. IMPRESSION: Successful ultrasound-guided thoracentesis of 550 mL of fluid.
[2018-04-01 22:23] VITALS: BP 118/78
[2018-04-02 07:01] VITALS: BP 136/66
--- NOTE | 2018-04-02 07:17 | PN- Housestaff ---
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 Objective Last 24 Hrs of Vital Signs/I&O Vital Signs Date Time Temp Pulse Resp B/P B/P Pulse O2 O2 Flow FiO2 Mean Ox Delivery Rate 04/02 0701 97.7 68 18 136/66 96 Room Air 04/01 2223 98.4 74 20 118/78 94 04/01 1450 97.7 63 20 118/66 94 Intake & Output 04/02 1600 04/02 0800 04/02 0000 Intake Total 50 50 Output Total 300 425 Balance -250 -375 Intake, Oral 50 50 Output, Urine 300 425 Patient 176 lb Weight Physical Exam General Appearance: Alert, Cooperative, No Acute Distress Cardiovascular: Normal S1, Normal S2 Lungs: Clear to Auscultation Abdomen: Normal Bowel Sounds, Soft, No Tenderness Neurological: Normal Speech, Strength at 5/5 X4 Ext, Normal Tone Extremities: right LE in clean surgical dressing, left Midtarsal amputation Assessment/Plan Assessment: Mr. Almanzar is a 67-year-old male with PMH of aortic stenosis, CAD s/p CABG (2016), CHF (last Echo 03/20/2018 that showed anterior wall hypokinesis and normal diastolic part in and reduced ejection fraction of 20-30% significant decrease from previous echo 3 months ago, Hypertension, hyperlipidemia, NSTEMI, PVD, urinary incontinence, CKD, and chronic osteomyelities w/ toes amputation who presented to [facility] with complains of progressive worsening right lower leg pain. PatienMr. Almanzar is a 67-year-old male with PMH of aortic stenosis, CAD s/p CABG (08/2017), CHF (last Echo 03/20/2018 that showed anterior wall hypokinesis and normal diastolic part in and reduced ejection fraction of 20-30% significant decrease from previous echo 3 months ago, Hypertension, hyperlipidemia, NSTEMI, PVD, urinary incontinence, CKD, and chronic osteomyelities w/ toes amputation who presented to [facility] with complains of progressive worsening right lower leg pain. Patient was found to have significant blood supply compromise to the right leg with pain at rest and extensive right common artery disease extending into the profunda. Problem list 1. Severe stenosis in the proximal superficial femoral artery status post endarterectomy on 03/22/18 2. GRECIA on CKD 3. Transaminitis 4. Anemia 5. History of PVD 6. History of Hypertension, Hyperlipidemia 7. Hypothyroidism 8. Persistent leucocytosis 9. new left pleural effusion, small loculated right pleural effusion On March 22 the patient was taken to the OR for common femoral artery endarterectomy and post procedure the patient was transferred to the intensive care unit for observation. There was no significant decrease in H&H postprocedure. The patient required 4 units of blood transfusion prior to the procedure with the recommendation by glass blower helper to have had a H&H of 08/01 before procedure. His H&H has continued to remain stable post procedure. 0n 03/25 patient was transferred to telemetry, he was started on carvedilol while on the ICU which resulted in bradycardia. He was transferred to telemetry for close monitoring of his heart rate. Heart failure with reduced ejection fraction * Ejection fraction of 20-30% reduced from 40-45% on echo from December 2017. Patient status post recent NSTEMI within last 6 weeks. * No plans for AICD placement at this time given the fact that his ejection fraction to be affected by the recent MRI, will continue to follow echocardiogram for improvement of ejection fraction. Dr. Botello and Dr. English on board. * No plans for Entresto because of kidney function. * Patient is off beta zamzam and ACEI/ARB's because of bradycardia. * Patient continue to be in normal sinus rhythm with 60-70 heart rate. * Continue home dose of Lasix 40 mg daily p.o. GRECIA on CKD stage III Creatinine today is 1.2 at baseline Continue to follow up on nephrology recommendation * GRECIA likely due to contrast prior to admission for angiography peripheral vascular disease * Continue home dose of Lasix * Patient is diuresing well on the last 24 hour output -760 Severe stenosis in the proximal superficial femoral artery status post endarterectomy on 03/22/18 * Vascular and podiatry on board * Patient is perfusing well, normal capillary refill, right lower extremity warm to touch * Leukocytosis mostly active, no signs of infection * Silvadene for daily use by the nursing staff for dressing changes over the weekend * No indication for surgical intervention at this time as tissue was is superficial and not infectious * Continue aspirin and Plavix Hypothyroidism * Synthroid 25 MCG * Repeated TSH 5.56, free T4 1 0.27, total T3 0.55 * Consider increase Synthroid dose to 50 MCG given elevated TSH Diabetes mellitus * Patient is on insulin sliding scale low-dose and Levemir 4 units every afternoon. * Patient had high readings yesterday in 400 and was given 6 units of insulin aspirt, blood sugar dropped to 89. This morning blood sugar is 126 * We'll increase sliding scale to medium dose, continue Levemir 4 units every afternoon Anemia * H&H dropping down, * Transfuse 1 unit of PRBCs * Will give 1 dose of Lasix 40 mg IV after transfusion * Iron studies are suggestive for iron deficiency anemia. * Continue ferric gluconate 8 doses per nephrology consultation. * Continue ferrous sulfate 325 mg 3 times a day. Transaminitis (resolved) * On presentation had ALT of 324 which improved and is back to normal on March 25 at 63. Persistent leukocytosis, improving WBC slowly trended down Chest x-ray did not show any new opacities CT chest showed new left-sided pleural effusion in addition to the old loculated right-sided pleural effusion Thoracocentesis suggestive of transudate effusion Follow-up on pending cultures MRI of the right foot ruled out osteomyelitis Continue home dose of Percocet 1 tablet p.o. twice daily daily ID and podiatry recommendation appreciated Continue to follow off antibiotics Epistaxis-resolved Anterior nasal packing was removed yesterday, no evidence of bleeding after that Patient has history of epistaxis with nasal cauterization in the past Resumed aspirin, Plavix, heparin Discussed the case with over the phone To avoid straining and trauma after unpacking ,nasal saline spray and humidifier as per ENT recommendation Melena: Patient is a still guaiac positive Patient had an episode of melena with blood clots on 03/28 It can be possibly due to severe epistaxis he had the night before EGD showed tension, clear esophageal ulcer, blood in the oropharynx most likely due to epistaxis Continue aspirin, Plavix, as per GI recommendation (Dr. Hidalgo discussed with Dr. Zimmerman after his H&H dropped to 7.3 today and she recommended continuing on the antiplatelets) To new to hold subcu heparin Continue IV Protonix twice daily Patient is full code DVT prophylaxis with Alps Consistent carbohydrate diet (currently n.p.o. for EGD) Problem List: 1. Melena 2. HFrEF (heart failure with reduced ejection fraction) 3. Anemia Pain Ratin Pain Location: N/A Pain Goal: Remain pain free Pain Plan: Pathway Tomorrow's Labs & Rationales: CBC BEP Tien Hidalgo 04/02/18 1038: Attending MD Review Statement Attending Statement Attending MD Statement: examined this patient, discuss w/resident/PA/MACHINE CLOTHING MAN, agreed w/resident/PA/MACHINE CLOTHING MAN, discussed with family, reviewed EMR data (avail), discussed with nursing, discussed with case mgmt, reviewed images, amended to note Attending Assessment/Plan: Patient seen/examined bedside. Denies any new complaints. Nasal packing removed. His WBC has decreased WBC 15. Patient hb slowly trending downwards. Pleural Effusion s/p thoracentesis is suggestive of transudative. On ASA/plavix as antiplatelet therapy for CAD and systolic heart failure and peripharal vascular disease. Transfuse 1 unit of prbc for anemia and recheck hb/hct. Slow transfusionw ith iv lasix after completion. Follow up with GI. Encourage ambulation. gi/dvt prophylaxis
--- NOTE | 2018-04-02 07:59 | PN- Podiatry ---
Subjective Subjective: 67-year-old male seen and evaluated at bedside in no apparent distress resting in bed for both demarcating superficial tissue loss secondary to peripheral drill disease and unstageable decubitus lesion of the right heel. Review of Systems: A 14 point review of systems was performed, and was found to be negative apart from the patient's complaints described above in the history of present illness. Objective Vital Signs and I&Os Vital Signs Date Time Temp Pulse Resp B/P B/P Pulse O2 O2 Flow FiO2 Mean Ox Delivery Rate 04/02 0701 97.7 68 18 136/66 96 Room Air 04/01 2223 98.4 74 20 118/78 94 04/01 1450 97.7 63 20 118/66 94 04/01 0800 97 Room Air Intake & Output 04/02 0804/02 0000 04/01 1600 04/01 0800 04/01 0000 03/31 1600 Intake Total 50 50 360 120 540 400 Output Total 300 425 606 506 5470 300 Balance -250 -375 110 -580 -760 100 Intake, IV 10 200 Intake, Oral 50 50 350 120 340 400 Number 2 0 Bowel Movements Output, Urine 300 425 438 255 6610 300 Patient 176 lb 174 lb Weight Weight Bed scale Measurement Method Physical Exam: The patient's peripheral neuro exam is unchanged, the patient's peripheral vascular examination is unchanged, the patient's musculoskeletal exam is unchanged. There is a new onset unstageable decubitus lesion with an increasingly fibrous base and a central eschar on the posterior right heel. There are no such changes on the left heel. The dorsal lesion remains a dry eschar over the fifth ray, with a fibro-granular superficial wound over the remainder of the dorsum of the foot. There remains no focal edema, no focal erythema, no calor, no fluctuance, no crepitus, no malodor, no purulence. Assessment/Plan Assessment/Plan 67-year-old diabetic male with end-stage peripheral arterial disease, substantial superficial soft tissue loss from arterial disease, substantial superficial soft tissue loss demarcating on the dorsum of the right foot, and an unstageable decubitus lesion of the posterior right heel. Patient was seen and evaluated at bedside A Betadine soaked gauze dressing was placed on the right foot Reinforce recommendation for strict decubitus protocol, with a pillow under the right calf, and the bed lengthened so that the inferior aspect of the foot isn't pressed up against the edge of the bed. Wound continues to show no acute clinical or radiographic evidence of acute infection, acute osteomyelitis, gas, or abscesses. Wound consider other sources of infection for WBC, or a multifactorial WBC including reactive leukocytosis. Wound care orders will be placed over the weekend, and provided the leukocytosis continues to decrease as it did yesterday, we'll follow-up again on Thursday. If it remains the same or increases, we'll follow up sooner during the weekend. Case d/w Vascular Surgery and infectious disease in the past 48 hours. Core Measures Venous Thromboembolism VTE Risk Factors Age>40 No Mechanical VTE Prophylaxis d/t N/A MechProphylax Ordered No VTE Pharm Prophylaxis d/t NA PharmProphylax ordered
[2018-04-02 08:17] LABS: ABSOLUTE BASOPHIL COUNT 0 /CUMM (0.0-0.2); ABSOLUTE EOSINOPHIL COUNT 0.3 /CUMM (0.0-0.7); ABSOLUTE GRANULOCYTE CT 13.7 /CUMM (1.4-6.5); ABSOLUTE LYMPH COUNT 0.5 /CUMM (1.2-3.4); ABSOLUTE MONOCYTE COUNT 1.2 /CUMM (0.10-0.60); BASOPHIL % 0.2 % (0.0-2.0); EOSINOPHIL % 1.7 % (0-5); GRANULOCYTE % 87.7 % (42.2-75.2); HEMATOCRIT 22.8 % (42-52); MEAN CORPUSCULAR HGB 29.4 PG (27.0-31.0); MEAN CORPUSCULAR HGB CONC 32.1 G/DL (33.0-37.0); MEAN CORPUSCULAR VOLUME 91.7 FL (80.0-94.0); MEAN PLATELET VOLUME 7.8 FL (7.4-10.4); PLATELET COUNT 285 /CUMM (130-400); RBC DISTRIBUTION WIDTH 21.7 % (11.5-14.5); RED BLOOD CELL CT 2.48 /CUMM (4.70-6.10); WHITE BLOOD CELL COUNT 15.6 /CUMM (4.8-10.8)
--- NOTE | 2018-04-02 11:49 | PN- Infect Dx ---
Subjective Subjective: Afebrile. He feels much improved status post removal of the rhino pocket from his left nare, with no further dyspnea. He has no pain in the right foot. Objective Last 24 Hrs of Vital Signs/I&O Vital Signs Date Time Temp Pulse Resp B/P B/P Pulse O2 O2 Flow FiO2 Mean Ox Delivery Rate 04/02 0701 97.7 68 18 136/66 96 Room Air 04/01 2223 98.4 74 20 118/78 94 04/01 1450 97.7 63 20 118/66 94 Intake & Output 04/02 1600 04/02 0800 04/02 0000 Intake Total 50 50 Output Total 300 425 Balance -250 -375 Intake, Oral 50 50 Output, Urine 300 425 Patient 176 lb Weight Physical Exam Other Physical Findings: He appears comfortable in no acute distress HEENT no recurrent epistaxis Lungs bibasilar crackles Heart regular rhythm with a 2/6 systolic ejection murmur Extremities right foot dressing intact Results Last 24 Hours of Lab Results: Laboratory Tests 04/02 04/01 04/01 0650 1400 1400 Chemistry Sodium (137 - 145 mmol/L) 140 Potassium (3.5 - 5.1 mmol/L) 5.0 Chloride (98 - 107 mmol/L) 106 Carbon Dioxide (22 - 30 mmol/L) 27 Anion Gap (5 - 16) 8 BUN (9 - 20 mg/dL) 44 H Creatinine (0.7 - 1.2 mg/dL) 1.2 Estimated GFR (>60 ml/min) > 60 BUN/Creatinine Ratio (7 - 25 %) 36.7 H Hematology CBC w Diff NO MAN DIFF REQ WBC (4.8 - 10.8 /CUMM) 15.6 H RBC (4.70 - 6.10 /CUMM) 2.48 L Hgb (14.0 - 18.0 G/DL) 7.3 *L Hct (42 - 52 %) 22.8 L MCV (80.0 - 94.0 FL) 91.7 MCH (27.0 - 31.0 PG) 29.4 MCHC (33.0 - 37.0 G/DL) 32.1 L RDW (11.5 - 14.5 %) 21.7 H Plt Count (130 - 400 /CUMM) 285 MPV (7.4 - 10.4 FL) 7.8 Gran % (42.2 - 75.2 %) 87.7 H Lymphocytes % (20.5 - 51.1 %) 2.9 L Monocytes % (1.7 - 9.3 %) 7.5 Eosinophils % (0 - 5 %) 1.7 Basophils % (0.0 - 2.0 %) 0.2 Absolute Granulocytes (1.4 - 6.5 /CUMM) 13.7 H Absolute Lymphocytes (1.2 - 3.4 /CUMM) 0.5 L Absolute Monocytes (0.10 - 0.60 /CUMM) 1.2 H Absolute Eosinophils (0.0 - 0.7 /CUMM) 0.3 Absolute Basophils (0.0 - 0.2 /CUMM) 0 Other Body Source Fluid WBC (0 - 5 /CUMM) ND Fld Total RBCs Counted (0 /CUMM) ND Pleural pH (PH) 7.37 04/01 1400 Hematology Lymphocytes (%) 12 % Normal PMNs (%) 46 Misc Hematology Test (%) Miscellaneous Phlebotomy Draw Site L THORACENTESIS Other Body Source Fluid Total Protein (g/dL) < 2.0 Fluid Albumin (g/dL) < 1.0 Fluid LDH (U/L) 320 Last 24 Hours of Sadi Results: Left pleural fluid culture April 01 negative Blood cultures x 2 March 30 negative Recent Imaging Studies: Chest x-ray April 01 no significant left-sided pleural effusion remaining Assessment/Plan ID Impression: Improving, with his temperatures remaining normal and his white blood cell count decreasing, off antibiotics, status post removal of 550 cc of blood-tinged fluid from the left pleural space yesterday, with the cell count, unfortunately, clotted but with the pH and chemistries not suggestive of an empyema. Of note he was on Plavix and aspirin, which may explain the bloody fluid, but the cytology should be followed up and further evaluation considered based on these results and his clinical status. The significance of the loculated right effusion is unclear as it was present on his previous CT scan. His right foot eschar was removed 2 days ago, with no evidence of any deep infection, and his MRI of the foot was negative for osteomyelitis, now 11 days status post right common femoral endarterectomy. Suggestion: 1. Follow-up final pleural fluid culture and cytology 2. Continue to follow off antibiotics
--- NOTE | 2018-04-02 14:00 | Discharge Summary ---
Visit Information Visit Dates Admission Date: 03/18/18 Discharge Date: 04/05/2018 Hospital Course Course Attending Physician: Tien Hidalgo MD Primary Care Physician: Enoch BROWN,Ruy Moss Hospital Course: Mr. Almanzar is 67 years old gentleman with extensive past medical history significant for aortic stenosis, CAD s/p CABG (08/2017), CHF (last Echo 2017) with LVEF of 20-30%.% with mid to distal anterior, anteroseptal and apical hypokinesis, hypertension, hyperlipidemia, NSTEMI 2018, PVD, urinary incontinence, CKD, and chronic osteomyelities w/ toes amputation who presented to the ED with complains of progressive worsening right lower leg pain. Patient was initially admitted to general medical floor and had right femoral artery endarterectomy due to acute presentation with severe lower limb pain and found to have vascular compromise. Patient was transferred to ICU floor and cardiac telemetry floor after the procedure for close cardiac monitoring giving his extensive cardiac history, recent end STEMI and low ejection fraction of 20-30%. Lower limb pain He is status post femoral artery endarterectomy with significant improvement in pain and vascular supply of the right lower limb. Podiatry and vascular surgery were on board. Osteomyelitis was excluded by MRI on for persistent leukocytosis. Leukocytosis improved mostly reactive. 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 Patient will continue on antiplatelet therapy Plavix as far as is not contraindicated. No plans for any surgical intervention at this point. Heart failure with reduced ejection fraction Patient had significant decline in ejection fraction from around 45 to recorded EF of 20-30% from most recent echocardiogram on March 20. He was seen by career development associate Dr. Botello who recommended patient to be started on carvedilol but upon initiation patient could not tolerate due to profound symptomatic bradycardia. Carvedilol, ACEI and ARB's were held for side effects mostly symptomatic bradycardia. Director Music Dr. English was following the patient, patient is a candidate for AICD given ejection fraction less than 30 but this recent change in EF is a result of non-ST elevated myocardial infarction about 6 weeks from admission and he probably has room for recovery of EF for which case Dr. Botello would like to wait, have a repeat echocardiogram as an outpatient and discuss with patient if he qualifies and would like to get an AICD. GRECIA on EKG Patient was admitted with creatinine of 2.[address] above his baseline of 1.8-1.9. On March 24 after his creatinine has returned to normal was found to be slightly elevated to 2.2. He is being followed by maintenance helper utility engineer and we have done spot urine electrolytes and creatinine while starting the patient on gentle hydration with normal saline at 75 mL per hr. creatinine improved and remained at baseline. 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 . We did iron studies and patient was found to have low iron levels. He was already on iron supplementation upon arrival in the hospital, Ferrlecit 125mg every other day x8 doses were given. Patient multiple blood transfusion during hospitalization 5 units 4 of them pre-Operative. Patient responded appropriately to blood transfusion. 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 Patient was cleared from GI to start aspirin and Plavix. Epistaxis Patient had an acute episode of epistaxis during hospitalization, H&H remained stable during this episode. ENT consultation was obtained and packing was applied. Repeated EGD to rule out any concurrent upper GI bleed did not reveal any GI source. Patient had a nasal pack with no recurrence of epistaxis and was removed with no complication. Pleural effusion Patient has chronic small size right side pleural effusion. He complained of shortness of breath since his last RI couple of weeks prior to admission, it can explained by his very low ejection fraction however due to persistent leukocytosis and new findings on CAT scan chest of left side pleural effusion, diagnostic and therapeutic thoracentesis proceeded. Fluid is transudative in nature. Patient reported significant improvement of his respiratory status after the thoracentesis. Cytology and body fluid culture are still pending. Leukocytosis improved off antibiotics. Blood cultures and urine cultures remained negative. ID consultation was obtained with recommendation to follow off antibiotics. Significant Procedures: Right common femoral endarterectomy Allergies: Coded Allergies: No Known Allergies (11/13/17) Disposition Summary Disposition Principal Diagnosis: Severe stenosis in the proximal superficial femoral artery status post endarterectomy Additional Diagnosis: Left side pleural effusion Heart failure with reduced ejection fraction Upper GI bleed AK I on CKD Multifactorial anemia Persistent leukocytosis/reactive Discharge Disposition: SNF Discharge Instructions General Discharge Information Code Status: Full Code Patient's Diet: Diabetic diet with sodium restriction regular fluid and solid Patient's Activity: As tolerated Follow-Up Instructions/Appts: -Please follow-up with your primary care physician within 1 week after discharge -Please follow-up with cardiology Dr. English within 1 week after discharge -Please follow-up with Dr. Botello cardiology within 2 weeks after discharge -Please follow-up with Dr. Sanchez vascular surgery within 2 weeks after discharge -Please follow-up with Dr. Pena podiatry within 1 week after discharge Medications at Discharge Discharge Medications: Stop taking the following medications: Atorvastatin Calcium (Atorvastatin Calcium) 80 MG TABLET ORAL DAILY Continue taking these medications: Sertraline HCl (Sertraline HCl) 50 MG TABLET 50 Milligram ORAL DAILY Qty = 90 Comments: Last Taken: 04/05/18 Time: 08 Ezetimibe (Zetia) 10 MG TABLET 10 Milligram ORAL DAILY Qty = 30 Comments: Last Taken: 04/05/18 Time: 08 Ergocalciferol (Vitamin D2) (Vitamin D2) 50,000 UNIT CAPSULE 1 Tablet ORAL EVERY THURSDAY Qty = 11 Comments: NOT GIVEN IN HOSPITAL Ferrous Sulfate (Ferrous Sulfate) 325 MG (65 MG IRON) TABLET 1 Tablet ORAL THREE TIMES DAILY Comments: Last Taken:04/05/18 Time:08 Ascorbate Calcium (Vitamin C) 500 MG TABLET 500 Milligram ORAL Every Morning Comments: Last Taken:04/05/18 Time:820 Aspirin (Ecotrin*) 81 MG TABLET.DR 1 Tablet ORAL Every Morning Comments: Last Taken: 04/05/18 Time:08 Clopidogrel Bisulfate (Plavix) 75 MG TABLET 1 Tablet ORAL DAILY Comments: Last Taken: 04/05/18 Time: 08 Cyanocobalamin (Vitamin B-12) 1,000 MCG TABLET 1 Tablet ORAL DAILY Comments: Last Taken:04/05/18 Time:08 Levothyroxine Sodium (Synthroid) 25 MCG TABLET 0.025 Milligram ORAL DAILY BEFORE BREAKFAST Qty = 30 Instructions: . Comments: Last Taken: 04/05/18 Time: 0546 Budesonide/Formoterol Fumarate (Symbicort 160-4.5 Mcg Inhaler) 160 MCG-4.5 MCG/ ACTUATION HFA.AER.AD 2 Puff Inhale through mouth TWICE DAILY Comments: Last Taken: 04/05/18 Time: 08 Fish Oil/Dha/Epa (Fish Oil 1,200 MG Fish Oil) 1,200 MG-144 MG-216 MG CAPSULE 1 Capsule ORAL DAILY Comments: NOT GIVEN IN HOSPITAL Albuterol Sulfate (Ventolin Hfa) 90 MCG HFA.AER.AD 1-2 Puff Inhale through mouth As Directed as needed for COPD Qty = 36 Comments: NOT GIVEN IN HOSPITAL Furosemide (Lasix) 40 MG TABLET 1 Tablet ORAL DAILY Qty = 60 Instructions: Please take as prescribed and follow up with your doctor. Comments: Last Taken:04/05/18 Time:08 Digoxin (Lanoxin) 125 MCG TABLET 0.125 Milligram ORAL 5 PM Qty = 30 Instructions: . Comments: Last Taken: 04/04/18 Time: 171 Insulin Glargine,Hum.rec.anlog (Lantus Solostar) 100 UNIT/ML (3 ML) INSULN.PEN 4 Unit Inject into fatty tissue Every night Comments: NOT GIVEN IN HOSPITAL Oxycodone HCl/Acetaminophen (Percocet 7.5-325 MG Tablet) 7.5 MG-325 MG TABLET 1 Tablet ORAL TWICE DAILY Comments: Last Taken:04/05/18 Time:0549 Sitagliptin Phosphate (Januvia) 100 MG TABLET 1 Tablet ORAL DAILY Comments: NOT GIVEN IN HOSPITAL Start taking the following new medications: Atorvastatin Calcium (Atorvastatin Calcium) 20 MG TABLET 20 Milligram ORAL 5 PM Qty = 60 No Refills Comments: Last Taken:04/04/18 Time:171 Omeprazole (Omeprazole) 20 MG CAPSULE.DR 40 Milligram ORAL DAILY BEFORE BREAKFAST Qty = 60 No Refills Comments: Last Taken:04/04/18 Time:0539 Povidone Iodine (Betadine) 10 % SOLUTION 1 Application On the skin DAILY Qty = 1 No Refills Instructions: Right foot Comments: Last Taken:04/05/18 Time:0800 Copies To: Daniel BROWN,Sharee Lugo MD,Ede Scherer; Enoch BROWN,Ruy Moss; Ayan BROWN,Anam Moss; Becky LAM,Josef English MD PHD,Roland S. Attending MD Review Statement Documenting Attending: Rocky BROWN,Tien
[2018-04-02 15:00] VITALS: BP 118/60
[2018-04-02 18:53] LABS: ABSOLUTE BASOPHIL COUNT 0 /CUMM (0.0-0.2); ABSOLUTE EOSINOPHIL COUNT 0.3 /CUMM (0.0-0.7); ABSOLUTE GRANULOCYTE CT 12.2 /CUMM (1.4-6.5); ABSOLUTE LYMPH COUNT 0.4 /CUMM (1.2-3.4); BASOPHIL % 0 % (0.0-2.0); EOSINOPHIL % 1.9 % (0-5); GRANULOCYTE % 88.1 % (42.2-75.2); HEMATOCRIT 24.1 % (42-52); MEAN CORPUSCULAR HGB 29.9 PG (27.0-31.0); MEAN CORPUSCULAR VOLUME 90.7 FL (80.0-94.0); MEAN PLATELET VOLUME 7.6 FL (7.4-10.4); PLATELET COUNT 294 /CUMM (130-400); RBC DISTRIBUTION WIDTH 20.1 % (11.5-14.5); RED BLOOD CELL CT 2.66 /CUMM (4.70-6.10); WHITE BLOOD CELL COUNT 13.9 /CUMM (4.8-10.8)
[2018-04-02 22:03] VITALS: BP 124/70
--- NOTE | 2018-04-02 22:43 | PN- Cardiology ---
Subjective Subjective: * Breathing is much improved. * creatinine 1.2 with potassium 5 * WBC count is trending down * severe anemia persists Objective Vital Signs and I&Os Vital Signs Date Time Temp Pulse Resp B/P B/P Pulse O2 O2 Flow FiO2 Mean Ox Delivery Rate 04/02 2203 98.6 69 18 124/70 95 Room Air 04/02 1655 66 118/60 04/02 1500 97.7 62 20 118/60 95 Room Air 04/02 1315 Room Air Room Air 04/02 0701 97.7 68 18 136/66 96 Room Air Intake & Output 04/02 1600 04/02 0800 04/02 0000 04/01 1600 04/01 0800 04/01 0000 Intake Total 750 50 50 360 120 540 Output Total 900 300 425 814 368 2543 Balance -150 -250 -375 110 -580 -760 Intake, IV 400 10 200 Intake, Oral 350 50 50 350 120 340 Number 1 2 Bowel Movements Output, Urine 900 300 [phone] [id number] Patient 176 lb 174 lb Weight Weight Bed scale Measurement Method Physical Exam: General: WD/WN male in NAD; lethargic and confused HEENT: NC/AT, PERRL, EOMI Neck: no JVD, no carotid bruit Heart: RRR with 2/6 systolic murmur Lungs: no crackles or wheezing Abdomen: soft, NT, +ve bowel sounds Extremities: no edema with venous stasis changes bilaterally, toe amputations bilaterally Assessment/Plan Assessment/Plan * Breathing is improved following thoracentesis. Continue current dose of Lasix and follow BUN and creatinine. * This patient may have anemia due to renal insuffciency however a prior workup disclosed an increased reticulocyte count instead of a low retic count that goes along better with bleeding than decreased production. Melena has been noted. * In consideration of this patient's poor EF he was seen by Dr. Botello who is inclined to pursue AICD placement with HIS bundle pacing if the patient agrees. He was asked to follow up with Dr. Botello as an outpatient when more stable. At the moment his increased WBC count indicative of possible infection would make this a less than desireable time to place a device. Check his digoxin level. * A small dose of Coreg was tried with resultant bradycardia. This patient has tried beta blockers, ACEI and ARB's in the past with untoward side effects. We will avoid these medications for now. Continue telemetry? Yes
[2018-04-03 07:04] VITALS: BP 130/72
[2018-04-03] MEDS ORDERED: BETADINE TOP (07:33)
[2018-04-03] MEDS ORDERED: OMEPRAZOLE20 M2 PO (07:33)
[2018-04-03] MEDS ORDERED: ATORVASTATIN CA20 M1 PO (07:33)
--- NOTE | 2018-04-03 07:35 | Patient Discharge Instructions ---
Discharge Instructions General Discharge Information You were seen/treated for: Right common femoral endarterectomy Special Instructions: -Please follow-up with your primary care physician within 1 week after discharge -Please follow-up with cardiology Dr. English within 1 week after discharge -Please follow-up with Dr. Botello cardiology within 2 weeks after discharge -Please follow-up with Dr. Sanchez vascular surgery within 2 weeks after discharge -Please follow-up with Dr. Pena podiatry within 1 week after discharge Wound care: Betadine soaked gauze dressing to both lesions on the right foot once daily with padded gauze wrap. Decubitus prophylaxis protocol at all times. Weightbearing: Patient may weight-bear as tolerated in a flat surgical shoe and padded dressing with the assistance of a walker as gait trained by PT. Follow-up: The patient is to follow-up with dR PENA on a weekly basis at the [facility] wound care center on Thursday through May 04. He was informed that after May 04, his care will be transferred to Dr. Sweet within the wound care center thereafter. Acute Coronary Syndrome Inclusion Criteria At DC or during hospital stay patient has or had the following: ACS DIAGNOSIS No Discharge Core Measures Meds if any: Prescribed or Continued at Discharge Meds if any: NOT Prescribed or Continued at Discharge Congestive Heart Failure Inclusion Criteria At DC or during hospital stay patient has or had the following: CHF DIAGNOSIS Yes Discharge Core Measures Meds if any: Prescribed or Continued at Discharge Meds if any: NOT Prescribed or Continued at Discharge Cerebrovascular accident Inclusion Criteria At DC or during hospital stay patient has or had the following: CVA/TIA Diagnosis No Discharge Core Measures Meds if any: Prescribed or Continued at Discharge Meds if any: NOT Prescribed or Continued at Discharge Venous thromboembolism Inclusion Criteria VTE Diagnosis No VTE Type NONE VTE Confirmed by (Test) NONE Discharge Core Measures - Per Current guidelines, there needs to be overlap - treatment for the first 5 days of Warfarin therapy. - If discharged on Warfarin prior to 5 days of - overlap therapy, the patient will need to be - assessed for post discharge needs including - *Post discharge parental anticoagulation - *Warfarin and/or parental anticoagulation education - *Follow up date to check INR post discharge At least 5 days overlap therapy as Inpatient No Meds if any: Prescribed or Continued at Discharge Note: Overlap Therapy is Warfarin and Anticoagulant Meds if any: NOT Prescribed or Continued at Discharge
[2018-04-03 09:03] LABS: ABSOLUTE BASOPHIL COUNT 0.1 /CUMM (0.0-0.2); ABSOLUTE EOSINOPHIL COUNT 0.3 /CUMM (0.0-0.7); ABSOLUTE GRANULOCYTE CT 11.5 /CUMM (1.4-6.5); ABSOLUTE LYMPH COUNT 0.5 /CUMM (1.2-3.4); ABSOLUTE MONOCYTE COUNT 0.8 /CUMM (0.10-0.60); BASOPHIL % 0.5 % (0.0-2.0); EOSINOPHIL % 1.9 % (0-5); GRANULOCYTE % 87.6 % (42.2-75.2); MEAN CORPUSCULAR HGB CONC 33.3 G/DL (33.0-37.0); MEAN CORPUSCULAR VOLUME 90.3 FL (80.0-94.0); MEAN PLATELET VOLUME 8.1 FL (7.4-10.4); PLATELET COUNT 298 /CUMM (130-400); RBC DISTRIBUTION WIDTH 20.2 % (11.5-14.5); RED BLOOD CELL CT 2.77 /CUMM (4.70-6.10); WHITE BLOOD CELL COUNT 13.2 /CUMM (4.8-10.8)
--- NOTE | 2018-04-03 09:08 | PN- Housestaff ---
Prabhjot Abrams 04/03/18 0907: Subjective Follow-up For: Persistent leukocytosisimproving. Peripheral vascular disease status post right femoral endarterectomy. Epistaxis, melena, hematuria. intractable lower limb pain [improved] post procedure Multiple digit amputation Reduced ejection fraction of 20-30% Oliguria GRECIA on CKD Pulmonary edemaimproved Complaints: pain scale (0-10) Tele-Events Since Last Visit: Normal sinus rhythm, 80, sinus bradycardia and was found to have weinckebach heart block when his heart slows down Subjective: And was seen and examined this morning he is alert awake and oriented to time place and person acute events overnight. He is feeling much better today. Denies any abdominal pain, melena, hematochezia. No blood in stools, no epistaxis. He reports mild discomfort and pain at the site of right heel. No Other active issues. Vitals stable, afebrile, heart rate 66, respiratory rate 18, blood pressure 130/ 72, saturating at 96 on room air Review of Systems Constitutional: Reports: no symptoms. Objective Last 24 Hrs of Vital Signs/I&O Vital Signs Date Time Temp Pulse Resp B/P B/P Pulse O2 O2 Flow FiO2 Mean Ox Delivery Rate 04/03 0704 98.1 66 18 130/72 96 Room Air 04/02 2203 98.6 69 18 124/70 95 Room Air 04/02 1655 66 118/60 04/02 1500 97.7 62 20 118/60 95 Room Air 04/02 1315 Room Air Room Air Intake & Output 04/03 1600 04/03 0800 04/03 0000 Intake Total 410 120 120 Output Total 200 400 400 Balance 210 -280 -280 Intake, IV 110 Intake, Oral 300 120 120 Output, Urine 200 400 400 Patient 79.861 kg Weight Weight Bed scale Measurement Method Physical Exam General Appearance: Alert, Oriented X3, Cooperative, No Acute Distress Other Physical Findings: Cardiovascular: Normal S1, Normal S2 Lungs: Clear to Auscultation Abdomen: Normal Bowel Sounds, Soft, No Tenderness Neurological: Normal Speech, Strength at 5/5 X4 Ext, Normal Tone Extremities: right LE in clean surgical dressing, left Midtarsal amputation Current Medications: Current Medications Sig/Salome Start time Last Medication Dose Route Stop Time Status Admin Acetaminophen 500 MG Q6P PRN 03/30 0815 DC 04/01 PO 2011 Acetaminophen 1,000 MG Q6P PRN 03/30 0815 AC N/A 1 UNIT IV Albuterol Sulfate See Dose Q4-6 PRN PRN 03/17 1945 AC Insts (1) INH Ascorbic Acid 500 MG DAILY 03/18 0900 AC 04/03 PO 0840 Aspirin Buffered 81 MG QAM 03/30 1415 AC 04/03 PO 0841 Atorvastatin Calcium 20 MG 1700 03/24 1700 AC 04/02 PO 1655 Budesonide/ 2 PUF BID 03/17 2100 AC 04/03 Formoterol Fumarate INH 0839 Clopidogrel Bisulfate 75 MG DAILY 03/30 1415 AC 04/03 PO 0840 Cyanocobalamin 1,000 MCG DAILY 03/18 0900 AC 04/03 PO 0840 Digoxin 0.125 MG 1700 03/18 1700 AC 04/02 PO 1655 Ezetimibe 10 MG DAILY 03/18 0900 AC 04/03 PO 0840 Ferric Sodium 125 MG Q48 03/26 1200 AC 04/03 Gluconate Complex IV 04/09 1005 1014 Sodium Chloride 100 ML Ferrous Sulfate 325 MG TID 03/17 2100 AC 04/03 PO 0841 Furosemide 40 MG DAILY 03/26 1327 AC 04/03 PO 0841 Glycerin 2 SPRAY Q2P PRN 03/23 0500 AC 04/01 PO 2011 Insulin Aspart 0 TIDAC 03/29 1700 AC 04/02 SC 1710 Insulin Detemir 3 UNITS BID 03/31 0900 AC 04/03 SC 0838 Levothyroxine Sodium 0.025 MG DAILY AC 03/18 0700 AC 04/03 PO 0548 Omeprazole 40 MG DAILY AC 03/30 0700 AC 04/03 PO 0549 Oxycodone/ 1 TAB Q8 PRN 04/03 1043 AC Acetaminophen PO Oxycodone/ 1 TAB ONCE ONE 04/02 1700 DC 04/02 Acetaminophen PO 04/02 1701 1707 Oxycodone/ 1 TAB BID 03/31 0900 DC 04/03 Acetaminophen PO 0841 Polyethylene Glycol 17 GM DAILY 03/25 1100 AC 04/02 PO 0835 Povidone Iodine 1 TULIO DAILY 03/29 0900 AC 04/02 TOP 1038 Senna/Docusate Sodium 2 TAB DAILY 03/25 1100 AC 04/03 PO 0840 Sertraline HCl 50 MG DAILY 03/18 0900 AC 04/03 PO 0840 Sodium Chloride 2 SPRAY Q4P PRN 04/02 1215 AC MIKHAIL Dose Instructions: (1)Albuterol Sulfate: 1-2 PUF Last 24 Hrs of Lab/Sadi Results Last 24 Hrs of Labs/Mics: Laboratory Tests 04/03/18 0605: Anion Gap 8, Estimated GFR > 60, BUN/Creatinine Ratio 38.2 H, CBC w Diff NO MAN DIFF REQ, RBC 2.77 L, MCV 90.3, MCH 30.0, MCHC 33.3, RDW 20.2 H, MPV 8.1, Gran % 87.6 H, Lymphocytes % 4.0 L, Monocytes % 6.0, Eosinophils % 1.9, Basophils % 0.5, Absolute Granulocytes 11.5 H, Absolute Lymphocytes 0.5 L, Absolute Monocytes 0.8 H, Absolute Eosinophils 0.3, Absolute Basophils 0.1, Digoxin 1.1 04/02/18 1830: CBC w Diff NO MAN DIFF REQ, RBC 2.66 L, MCV 90.7, MCH 29.9, MCHC 33.0, RDW 20.1 H, MPV 7.6, Gran % 88.1 H, Lymphocytes % 2.6 L, Monocytes % 7.4, Eosinophils % 1.9, Basophils % 0, Absolute Granulocytes 12.2 H, Absolute Lymphocytes 0.4 L , Absolute Monocytes 1.0 H, Absolute Eosinophils 0.3, Absolute Basophils 0 04/02/18 1800: CBC w Diff Cancelled, WBC Cancelled, RBC Cancelled, Hgb Cancelled, Hct Cancelled , MCV Cancelled, MCH Cancelled, MCHC Cancelled, RDW Cancelled, Plt Count Cancelled, MPV Cancelled Assessment/Plan Assessment: Mr. Almanzar is 67 years old gentleman with extensive past medical history significant for aortic stenosis, CAD s/p CABG (08/2017), CHF (last Echo 2017) with LVEF of 20-30%.% with mid to distal anterior, anteroseptal and apical hypokinesis, hypertension, hyperlipidemia, NSTEMI 2018, PVD, urinary incontinence, CKD, and chronic osteomyelities w/ toes amputation who presented to the ED with complains of progressive worsening right lower leg pain. Patient was initially admitted to general medical floor and had right femoral artery endarterectomy due to acute presentation with severe lower limb pain and found to have vascular compromise. Patient was transferred to ICU floor and cardiac telemetry floor after the procedure for close cardiac monitoring giving his extensive cardiac history, recent end STEMI and low ejection fraction of 20- 30%. ---- Lower limb pain/ Severe stenosis in the proximal superficial femoral artery status post endarterectomy on 03/22/18 He is status post femoral artery endarterectomy with significant improvement in pain and vascular supply of the right lower limb. Podiatry and vascular surgery were on board. Osteomyelitis was excluded by MRI on for persistent leukocytosis. Leukocytosis improved mostly reactive. 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 * Patient will continue on antiplatelet therapy Plavix. * No plans for any surgical intervention at this point. * Vascular and podiatry on board * Patient is perfusing well, normal capillary refill, right lower extremity warm to touch * Leukocytosis mostly active, no signs of infection * Silvadene for daily use by the nursing staff for dressing changes over the weekend * Continue aspirin and Plavix Heart failure with reduced ejection fraction Patient had significant decline in ejection fraction from around 45 to recorded EF of 20-30% from most recent echocardiogram on March 20. He was seen by tool trouble shooter Dr. Botello who recommended patient to be started on carvedilol but upon initiation patient could not tolerate due to profound symptomatic bradycardia. Carvedilol, ACEI and ARB's were held for side effects mostly symptomatic bradycardia. [employer] Administrator Dr. English was following the patient, patient is a candidate for AICD given ejection fraction less than 30 but this recent change in EF is a result of non-ST elevated myocardial infarction about 6 weeks from admission and he probably has room for recovery of EF for which case Dr. Botello would like to wait, have a repeat echocardiogram as an outpatient and discuss with patient if he qualifies and would like to get an AICD. * Patient is off beta zamzam carvidilol and ACEI/ARB's because of bradycardia. * Patient continue to be in normal sinus rhythm with 60-70 heart rate. * Continue home dose of Lasix 40 mg daily p.o. GRECIA on CKD Patient was admitted with creatinine of [address] his baseline of 1.8-1.9. He is being followed by mold setter and we have done spot urine electrolytes and creatinine. He is on gentle hydration with normal saline at 75 mL per hr. creatinine improved and remained at baseline. GRECIA likely due to contrast prior to admission for angiography. 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 We did iron studies and patient was found to have low iron levels. He was already on iron supplementation upon arrival in the hospital, Ferrlecit 125mg every other day x8 doses were given. Patient multiple blood transfusion during hospitalization 5 units 4 of them pre-Operative. Patient responded appropriately to blood transfusion. 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 Patient was cleared from GI to start aspirin and Plavix. * Continue ferric gluconate 8 doses per nephrology consultation. * Continue ferrous sulfate 325 mg 3 times a day. Epistaxis Patient had an acute episode of epistaxis during hospitalization, H&H remained stable during this episode. ENT consultation was obtained and packing was applied. Repeated EGD to rule out any concurrent upper GI bleed did not reveal any GI source. Patient had a nasal pack with no recurrence of epistaxis and was removed with no complication. Pleural effusion Patient has chronic small size right side pleural effusion. However due to persistent leukocytosis and new findings on CAT scan chest suggestive of left side pleural effusion, diagnostic and therapeutic thoracentesis proceeded. Fluid is transudative in nature. Patient reported significant improvement of his respiratory status after the thoracentesis. Leukocytosis improved off antibiotics. Blood cultures and urine cultures remained negative. * ID consultation was obtained with recommendation to follow off antibiotics. * Cytology and body fluid culture are still pending. Hypothyroidism * Synthroid 25 MCG * Repeated TSH 5.56, free T4 1 0.27, total T3 0.55 Diabetes mellitus * Patient is on insulin sliding scale medium-dose and Levemir 4 units every afternoon. Transaminitis (resolved) * On presentation had ALT of 324 which improved and is back to normal on March 25 at 63. Persistent leukocytosis WBC slowly trended down Chest x-ray did not show any new opacities CT chest showed new left-sided pleural effusion in addition to the old loculated right-sided pleural effusion Thoracocentesis suggestive of transudate effusion Follow-up on pending cultures MRI of the right foot ruled out osteomyelitis Continue home dose of Percocet 1 tablet p.o. q8 ID and podiatry recommendation appreciated Continue to follow off antibiotics Patient is full code DVT prophylaxis with Alps Consistent carbohydrate diet Problem List: 1. Melena 2. Peripheral vascular disease 3. Pedal edema 4. Confusion 5. Renal insufficiency 6. Fall at home Pain Ratin Pain Location: right heel Pain Goal: Remain pain free Pain Plan: percocet Tomorrow's Labs & Rationales: cbc bep Leia BROWN,Amir 04/03/18 1100: Attending MD Review Statement Attending Statement Attending MD Statement: examined this patient, discuss w/resident/PA/SANITARY CHEMIST, agreed w/resident/PA/SANITARY CHEMIST, reviewed EMR data (avail), discussed with nursing Attending Assessment/Plan: Mr. Almanzar was seen and evaluated by me. Chart reviewed. Pleasant man, s/p thoracocentesis, also seen by GI, Cards, and ID. Currently off of abx. Reports pain after podiatry procedure --recommend inc his pain meds --cont other meds --rest of the plan as per residents note
[2018-04-03 14:44] VITALS: BP 110/76
[2018-04-03 22:18] VITALS: BP 132/64
[2018-04-04 06:44] VITALS: BP 144/72
[2018-04-04 07:30] LABS: ABSOLUTE BASOPHIL COUNT 0 /CUMM (0.0-0.2); ABSOLUTE EOSINOPHIL COUNT 0.3 /CUMM (0.0-0.7); ABSOLUTE GRANULOCYTE CT 10.8 /CUMM (1.4-6.5); ABSOLUTE LYMPH COUNT 0.4 /CUMM (1.2-3.4); ABSOLUTE MONOCYTE COUNT 1.1 /CUMM (0.10-0.60); BASOPHIL % 0 % (0.0-2.0); EOSINOPHIL % 2.5 % (0-5); GRANULOCYTE % 85.4 % (42.2-75.2); HEMATOCRIT 25.5 % (42-52); MEAN CORPUSCULAR HGB 29.8 PG (27.0-31.0); MEAN CORPUSCULAR HGB CONC 32.5 G/DL (33.0-37.0); MEAN CORPUSCULAR VOLUME 91.6 FL (80.0-94.0); MEAN PLATELET VOLUME 7.4 FL (7.4-10.4); PLATELET COUNT 320 /CUMM (130-400); RBC DISTRIBUTION WIDTH 21.1 % (11.5-14.5); RED BLOOD CELL CT 2.78 /CUMM (4.70-6.10); WHITE BLOOD CELL COUNT 12.6 /CUMM (4.8-10.8)
--- NOTE | 2018-04-04 08:34 | PN- Housestaff ---
Prabhjot Abrams 04/04/18 0833: Subjective Follow-up For: Persistent leukocytosisimproving. Peripheral vascular disease status post right femoral endarterectomy. Epistaxis, melena, hematuria- improved. Intractable lower limb pain [improved] post procedure Multiple digit amputation Reduced ejection fraction of 20-30% Oliguria GRECIA on CKD Complaints: pain scale (0-10) Tele-Events Since Last Visit: Normal sinus rhythm, 80, sinus bradycardia with first-degree heart block sinus bradycardia and was found to have weinckebach heart block when his heart slows down Subjective: patient was seen and examined this morning. he is alert awake and oriented to time place and person, no acute events overnight. He is feeling much better today. Denies any abdominal pain, melena, hematochezia. No blood in stools, no epistaxis. Reports Some nausea this morning, relieved with Zofran. No Other active issues. Vitals stable, afebrile, heart rate 66, respiratory rate 18, blood pressure 130/ 72, saturating at 96 on room air. Review of Systems Constitutional: Reports: see HPI. Objective Last 24 Hrs of Vital Signs/I&O Vital Signs Date Time Temp Pulse Resp B/P B/P Pulse O2 O2 Flow FiO2 Mean Ox Delivery Rate 04/04 0644 97.6 64 18 144/72 94 Room Air 04/03 2330 Room Air 04/03 2218 98.2 61 18 132/64 93 Room Air 04/03 1720 72 110/76 04/03 1444 98.1 72 18 110/76 96 Room Air Intake & Output 04/04 1600 04/04 0800 04/04 0000 Intake Total 240 340 Output Total 150 250 Balance 90 90 Intake, Oral 240 340 Number 0 Bowel Movements Output, Urine 150 250 Patient 79.464 kg Weight Physical Exam General Appearance: Alert, Oriented X3, Cooperative, No Acute Distress Other Physical Findings: Cardiovascular: Normal S1, Normal S2 Lungs: Clear to Auscultation Abdomen: Normal Bowel Sounds, Soft, No Tenderness Neurological: Normal Speech, Strength at 5/5 X4 Ext, Normal Tone Extremities: right LE in clean surgical dressing, left Midtarsal amputation. There is a new onset unstageable decubitus lesion with an increasingly fibrous base and a central eschar on the posterior right heel. There are no such changes on the left heel. The dorsal lesion remains a dry eschar over the fifth ray, with a fibro-granular superficial wound over the remainder of the dorsum of the foot. There remains no focal edema, no focal erythema, no calor, no fluctuance, no crepitus, no malodor, no purulence. Current Medications: Current Medications Sig/Salome Start time Last Medication Dose Route Stop Time Status Admin Acetaminophen 500 MG Q6P PRN 03/30 0815 DC 04/01 PO 2011 Acetaminophen 1,000 MG Q6P PRN 03/30 0815 AC N/A 1 UNIT IV Albuterol Sulfate See Dose Q4-6 PRN PRN 03/17 1945 AC Insts (1) INH Ascorbic Acid 500 MG DAILY 03/18 09 AC 04/04 PO 0910 Aspirin Buffered 81 MG QAM 03/30 1415 AC 04/04 PO 0910 Atorvastatin Calcium 20 MG 1700 03/24 1700 AC 04/03 PO 1719 Budesonide/ 2 PUF BID 03/17 2100 AC 04/04 Formoterol Fumarate INH 0910 Clopidogrel Bisulfate 75 MG DAILY 03/30 1415 AC 04/04 PO 0910 Cyanocobalamin 1,000 MCG DAILY 03/18 09 AC 04/04 PO 0910 Digoxin 0.125 MG 1700 03/18 1700 AC 04/03 PO 1720 Ezetimibe 10 MG DAILY 03/18 0900 AC 04/04 PO 0911 Ferric Sodium 125 MG Q48 03/26 1200 AC 04/03 Gluconate Complex IV 04/09 1005 1014 Sodium Chloride 100 ML Ferrous Sulfate 325 MG TID 03/17 2100 AC 04/04 PO 0910 Furosemide 40 MG DAILY 03/26 1327 AC 04/04 PO 0910 Glycerin 2 SPRAY Q2P PRN 03/23 0500 AC 04/01 PO 2011 Insulin Aspart 0 TIDAC 03/29 1700 AC 04/03 SC 1720 Insulin Detemir 3 UNITS BID 03/31 09 AC 04/04 SC 0918 Ketorolac 30 MG ONCE ONE 04/03 2100 DC 04/03 Tromethamine IV 04/03 Levothyroxine Sodium 0.025 MG DAILY AC 03/18 0700 AC 04/04 PO 0524 Omeprazole 40 MG DAILY AC 03/30 0700 AC 04/04 PO 0524 Oxycodone/ 1 TAB Q8 PRN 04/03 1043 AC 04/04 Acetaminophen PO 0918 Oxycodone/ 1 TAB BID 03/31 0900 DC 04/03 Acetaminophen PO 0841 Polyethylene Glycol 17 GM DAILY 03/25 1100 AC 04/04 PO 0910 Povidone Iodine 1 TULIO DAILY 03/29 0900 AC 04/04 TOP 0911 Senna/Docusate Sodium 2 TAB DAILY 03/25 1100 AC 04/04 PO 0910 Sertraline HCl 50 MG DAILY 03/18 09 AC 04/04 PO 0911 Sodium Chloride 2 SPRAY Q4P PRN 04/02 1215 AC MIKHAIL Dose Instructions: (1)Albuterol Sulfate: 1-2 PUF Last 24 Hrs of Lab/Sadi Results Last 24 Hrs of Labs/Mics: Laboratory Tests 04/04/18 0710: Anion Gap 8, Estimated GFR > 60, BUN/Creatinine Ratio 38.3 H, CBC w Diff NO MAN DIFF REQ, RBC 2.78 L, MCV 91.6, MCH 29.8, MCHC 32.5 L, RDW 21.1 H, MPV 7.4, Gran % 85.4 H, Lymphocytes % 3.5 L, Monocytes % 8.6, Eosinophils % 2.5, Basophils % 0, Absolute Granulocytes 10.8 H, Absolute Lymphocytes 0.4 L, Absolute Monocytes 1.1 H, Absolute Eosinophils 0.3, Absolute Basophils 0 Assessment/Plan Assessment: Mr. Almanzar is 67 years old gentleman with extensive past medical history significant for aortic stenosis, CAD s/p CABG (08/2017), CHF (last Echo 2017) with LVEF of 20-30%.% with mid to distal anterior, anteroseptal and apical hypokinesis, hypertension, hyperlipidemia, NSTEMI 2018, PVD, urinary incontinence, CKD, and chronic osteomyelities w/ toes amputation who presented to the ED with complains of progressive worsening right lower leg pain. Patient was initially admitted to general medical floor and had right femoral artery endarterectomy due to acute presentation with severe lower limb pain and found to have vascular compromise. Patient was transferred to ICU floor and cardiac telemetry floor after the procedure for close cardiac monitoring giving his extensive cardiac history, recent NSTEMI and low ejection fraction of 20-30% . ---- Right Lower limb pain/ Severe stenosis in the proximal superficial femoral artery status post endarterectomy on 03/22/18 He is 13 days status post femoral artery endarterectomy with significant improvement in pain and vascular supply of the right lower limb. Podiatry and vascular surgery were on board. Osteomyelitis was excluded by MRI on for persistent leukocytosis. Leukocytosis improved mostly reactive. 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 * Patient will continue on antiplatelet therapy Plavix. * No plans for any surgical intervention at this point. * Vascular and podiatry on board * Patient is perfusing well, normal capillary refill, right lower extremity warm to touch * Leukocytosis mostly active, no signs of infection * Silvadene for daily use by the nursing staff for dressing changes over the weekend * Continue aspirin and Plavix * strict decubitus protocol Heart failure with reduced ejection fraction Patient had significant decline in ejection fraction from around 45 to recorded EF of 20-30% from most recent echocardiogram on March 20. He was seen by strike planning applications Dr. Botello who recommended patient to be started on carvedilol but upon initiation patient could not tolerate due to profound symptomatic bradycardia. Carvedilol, ACEI and ARB's were held for side effects mostly symptomatic bradycardia. [employer] Maintenance Supervisor Dr. English was following the patient, patient is a candidate for AICD given ejection fraction less than 30 but this recent change in EF is a result of non-ST elevated myocardial infarction about 6 weeks from admission and he probably has room for recovery of EF for which case Dr. Botello would like to wait, have a repeat echocardiogram as an outpatient and discuss with patient if he qualifies and would like to get an AICD. * Patient is off beta zamzam carvidilol and ACEI/ARB's because of bradycardia. * Patient continue to be in normal sinus rhythm with 60-70 heart rate. * Continue home dose of Lasix 40 mg daily p.o. GRECIA on CKD Patient was admitted with creatinine of 2.[address] his baseline of 1.8-1.9. He is being followed by network manager and we have done spot urine electrolytes and creatinine. Creatinine improved with gentle hydration and remained at baseline. GRECIA likely due to contrast prior to admission for angiography. 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 We did iron studies and patient was found to have low iron levels. He was already on iron supplementation upon arrival in the hospital, Ferrlecit 125mg every other day x8 doses were given. Patient multiple blood transfusion during hospitalization 5 units 4 of them pre-Operative. Patient responded appropriately to blood transfusion. 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 Patient was cleared from GI to start aspirin and Plavix. * Continue ferric gluconate 8 doses per nephrology consultation. * Continue ferrous sulfate 325 mg 3 times a day. Epistaxis Patient had an acute episode of epistaxis during hospitalization, H&H remained stable during this episode. ENT consultation was obtained and packing was applied. Repeated EGD to rule out any concurrent upper GI bleed did not reveal any GI source. Patient had a nasal pack with no recurrence of epistaxis and was removed with no complication. Pleural effusion Patient has chronic small size right side pleural effusion. However due to persistent leukocytosis and new findings on CAT scan chest suggestive of left side pleural effusion, diagnostic and therapeutic thoracentesis proceeded. Fluid is transudative in nature. Patient reported significant improvement of his respiratory status after the thoracentesis. Leukocytosis improved off antibiotics. Blood cultures and urine cultures remained negative. * ID consultation was obtained with recommendation to follow off antibiotics. * Cytology and body fluid culture are still pending. Hypothyroidism * Synthroid 25 MCG * Repeated TSH 5.56, free T4 1 0.27, total T3 0.55 Diabetes mellitus * Patient is on insulin sliding scale medium-dose and Levemir 4 units every afternoon. Transaminitis (resolved) * On presentation had ALT of 324 which improved and is back to normal on March 25 at 63. Persistent leukocytosis * WBC slowly trended down * Chest x-ray did not show any new opacities * CT chest showed new left-sided pleural effusion in addition to the old loculated right-sided pleural effusion * Thoracocentesis suggestive of transudate effusion * Follow-up on pending cultures * MRI of the right foot ruled out osteomyelitis * Continue to follow off antibiotics chronic issues CAD/CABG 2016 Hyperlipidemia - continue Lipitor, ZETIA Depression continue Zoloft chronic osteomyelities w/ toes amputation Patient is full code DVT prophylaxis with Alps Consistent carbohydrate diet Problem List: 1. Melena 2. Peripheral vascular disease 3. Pedal edema 4. Confusion Pain Ratin Pain Location: RIGHT LEG Pain Goal: Remain pain free Pain Plan: PERCOCET Tomorrow's Labs & Rationales: CBC BEP Leia BROWN,Amir 04/04/18 1202: Attending MD Review Statement Attending Statement Attending MD Statement: examined this patient, discuss w/resident/PA/PROPERTY CUSTODIAN, agreed w/resident/PA/PROPERTY CUSTODIAN, reviewed EMR data (avail), discussed with nursing Attending Assessment/Plan: Mr. Almanzar was seen and evaluated by me. Chart reviewed. Pleasant man, s/p thoracocentesis, also seen by GI, Cards, and ID. Currently off of abx. Reports pain better controlled after adjusting pain meds --f/u Podiatry recs --cont other meds --rest of the plan as per residents note
[2018-04-04 14:55] VITALS: BP 110/60
[2018-04-04 22:22] VITALS: BP 128/60
[2018-04-05 06:00] VITALS: BP 122/75
--- NOTE | 2018-04-05 07:04 | PN- Housestaff ---
Danilo Barakat 04/05/18 0704: Subjective Follow-up For: Periphreal Vascular Disease Status Post Right Femoral Endarterectomy Epistaxis, Melena, Hematuria Multiple Digit Amputation Lower limb pain (Improved) post procedured Reduced ejection fraction of 20-30% Oliguria GRECIA on CKD Tele-Events Since Last Visit: Patient was SR, 1D heart block, rate of 72 and TN interval of 0.32 on tele today. Patient was stable. Subjective: Patient seen adn examined at bedside this morning. He is alert and oriented this morning. Patient states to be content with the state of his breathing and resolution of epistaxis and pain. Patient tolerating diet with normal bowel and bladder regimens. He denies any shortness of breath, chest pain or nausea. There were no acute overnight events. Patient agrees on discharge today to rehab. Vital signs continue to be stable as the patient is afebrile with temperature of 97.6, HR 71, BP 122/75 and saturating at 93% on room air. Review of Systems Constitutional: Denies: see HPI. Objective Last 24 Hrs of Vital Signs/I&O Vital Signs Date Time Temp Pulse Resp B/P B/P Pulse O2 O2 Flow FiO2 Mean Ox Delivery Rate 04/05 1230 97.6 71 18 122/75 07/ 0600 97.6 71 18 122/75 93 Room Air / 0000 Room Air 04/04 2222 98.1 68 18 128/60 94 Room Air 07/ 1711 69 110/60 07/ 1455 97.8 62 20 110/60 96 Room Air Intake & Output 04/05 1600 /02 0800 07 0000 Intake Total 200 200 Output Total 600 700 Balance -400 -500 Intake, Oral 200 200 Number 1 Bowel Movements Output, Urine 600 700 Patient 179 lb Weight Physical Exam General Appearance: Alert, Oriented X3, Cooperative, No Acute Distress HEENT: Atraumatic, PERRLA, EOMI Cardiovascular: Regular Rate, Normal S1, Normal S2, No Murmurs, Gallops Lungs: Clear to Auscultation, Normal Air Movement Abdomen: Normal Bowel Sounds, Soft, No Tenderness Neurological: Normal Speech, Strength at 5/5 X4 Ext, Normal Tone, Sensation Intact, Cranial Nerves 3-12 NL Extremities: No Clubbing, No Cyanosis, No Edema, Normal Pulses, Right LE in clean surgical dressing; left midtarsal amputation -No focal edema, erythema, calor or fluctulance noted. No crepitus or malodor or purulence noted. Vascular: Normal Pulses, Pulses Symmetrical Current Medications: Current Medications Sig/Salome Start time Last Medication Dose Route Stop Time Status Admin Acetaminophen 1,000 MG Q6P PRN 03/30 0815 DCD N/A 1 UNIT IV Albuterol Sulfate See Dose Q4-6 PRN PRN 03/17 1945 DCD Insts (1) INH Ascorbic Acid 500 MG DAILY 03/18 09 DCD 07 PO 0821 Aspirin Buffered 81 MG QAM 03/30 1415 DCD 07 PO 0821 Atorvastatin Calcium 20 MG 1700 03/24 1700 DCD 04/04 PO 1711 Budesonide/ 2 PUF BID 03/17 2100 DCD 04/05 Formoterol Fumarate INH 0825 Clopidogrel Bisulfate 75 MG DAILY 03/30 1415 DCD 07 PO 0821 Cyanocobalamin 1,000 MCG DAILY 03/18 09 DCD 04/05 PO 0821 Digoxin 0.125 MG 1700 03/18 1700 DCD 07 PO 1711 Ezetimibe 10 MG DAILY 03/18 0900 DCD 07 PO 0821 Ferric Sodium 125 MG Q48 03/26 1200 DCD 07 Gluconate Complex IV 04/09 1005 1014 Sodium Chloride 100 ML Ferrous Sulfate 325 MG TID 03/17 2100 DCD 07/ PO 0821 Furosemide 40 MG DAILY 03/26 1327 DCD 07 PO 0821 Glycerin 2 SPRAY Q2P PRN 03/23 0500 DCD 04/01 PO 2011 Insulin Aspart 0 TIDAC 03/29 1700 DCD 07 SC 1711 Insulin Detemir 3 UNITS BID 03/31 0900 DCD 07 SC 0821 Levothyroxine Sodium 0.025 MG DAILY AC 03/18 07 DCD 04/05 PO 0546 Omeprazole 40 MG DAILY AC 03/30 07 DCD 07 PO 0539 Oxycodone/ 1 TAB Q8 PRN 04/03 1043 DCD 07 Acetaminophen PO 0549 Polyethylene Glycol 17 GM DAILY 03/25 1100 DCD 04/05 PO 0820 Povidone Iodine 1 TULIO DAILY 03/29 0900 DCD 07 TOP 0822 Senna/Docusate Sodium 2 TAB DAILY 03/25 1100 DCD 04/05 PO 0821 Sertraline HCl 50 MG DAILY 03/18 0900 DCD 04/05 PO 0820 Sodium Chloride 2 SPRAY Q4P PRN 04/02 1215 DCD MIKHAIL Dose Instructions: (1)Albuterol Sulfate: 1-2 PUF Last 24 Hrs of Lab/Sadi Results Last 24 Hrs of Labs/Mics: Laboratory Tests 04/05/18 0627: Anion Gap 8, Estimated GFR > 60, BUN/Creatinine Ratio 38.2 H, CBC w Diff NO MAN DIFF REQ, RBC 2.67 L, MCV 91.0, MCH 29.7, MCHC 32.7 L, RDW 20.7 H, MPV 7.4, Gran % 86.3 H, Lymphocytes % 4.3 L, Monocytes % 6.8, Eosinophils % 2.2, Basophils % 0.4, Absolute Granulocytes 10.4 H, Absolute Lymphocytes 0.5 L, Absolute Monocytes 0.8 H, Absolute Eosinophils 0.3, Absolute Basophils 0 Assessment/Plan Assessment: A/P: Mr. Almanzar is 67 years old gentleman with extensive past medical history significant for aortic stenosis, CAD s/p CABG (08/2017), CHF (last Echo 2017) with LVEF of 20-30%.% with mid to distal anterior, anteroseptal and apical hypokinesis, hypertension, hyperlipidemia, NSTEMI 2018, PVD, urinary incontinence, CKD, and chronic osteomyelities w/ toes amputation who presented to the ED with complains of progressive worsening right lower leg pain. Patient was initially admitted to general medical floor and had right femoral artery endarterectomy due to acute presentation with severe lower limb pain and found to have vascular compromise. Patient was transferred to ICU floor and cardiac telemetry floor after the procedure for close cardiac monitoring giving his extensive cardiac history, recent NSTEMI and low ejection fraction of 20-30% . PLAN: -Patient to be discharged to [facility] today. -Patient will follow up with vascular, GI and podiatry post discharge -Plan of care discussed with patient Problem List: 1. Diabetes mellitus 2. Peripheral vascular disease 3. Peripheral vascular disease 4. Intractable pain 5. Anemia 6. GI bleed 7. Acute on chronic renal insufficiency 8. GRECIA (acute kidney injury) Pain Ratin Pain Location: Right lower limb Pain Goal: Pain 4 or less Pain Plan: per pain pathway Tomorrow's Labs & Rationales: Patient to be DC today Discharge Plan Discharge Disposition: STR/NH Stable for Discharge? Yes Anticipated Discharge (Day): today If Discharged Today/In 24 Hrs: W-10/discharge paper done Ryan Contreras 04/05/18 1054: Attending MD Review Statement Attending Statement Attending MD Statement: examined this patient, discuss w/resident/PA/COMPLIANCE AND CONTROL ANALYST, agreed w/resident/PA/COMPLIANCE AND CONTROL ANALYST, reviewed EMR data (avail), discussed with nursing, discussed with case mgmt Attending Assessment/Plan: Pt being dced to STR today. Pt with Rt lower extremity ischemia with rt foot ulcers s/p rt common femoral endarterectomy. Pt will f/u with vascular and podiatry post discharge . dw pt the care plan.
[2018-04-05 07:24] LABS: ABSOLUTE BASOPHIL COUNT 0 /CUMM (0.0-0.2); ABSOLUTE EOSINOPHIL COUNT 0.3 /CUMM (0.0-0.7); ABSOLUTE GRANULOCYTE CT 10.4 /CUMM (1.4-6.5); ABSOLUTE LYMPH COUNT 0.5 /CUMM (1.2-3.4); ABSOLUTE MONOCYTE COUNT 0.8 /CUMM (0.10-0.60); BASOPHIL % 0.4 % (0.0-2.0); EOSINOPHIL % 2.2 % (0-5); HEMATOCRIT 24.3 % (42-52); MEAN CORPUSCULAR HGB 29.7 PG (27.0-31.0); MEAN CORPUSCULAR HGB CONC 32.7 G/DL (33.0-37.0); MEAN PLATELET VOLUME 7.4 FL (7.4-10.4); PLATELET COUNT 329 /CUMM (130-400); RBC DISTRIBUTION WIDTH 20.7 % (11.5-14.5); RED BLOOD CELL CT 2.67 /CUMM (4.70-6.10)
[2018-04-05 08:10] LABS: GRANULOCYTE % 86.3 % (42.2-75.2)
--- NOTE | 2018-04-05 08:28 | PN- Podiatry ---
Subjective Subjective: 67-year-old male seen and evaluated at bedside for continuing care of large superficial soft tissue loss secondary to peripheral arterial disease on the dorsum of the right foot, and a unstageable decubitus lesion of the right heel onset during this admission. The patient appears to be much better spirits, is fully conversational now, and denies fevers chills nausea vomiting diaphoresis shortness of breath and chest pain at time of my examination. Review of Systems: A 14 point review of systems was performed, and was found to be negative apart from the patient's complaints described above in the history of present illness. Objective Vital Signs and I&Os Vital Signs Date Time Temp Pulse Resp B/P B/P Pulse O2 O2 Flow FiO2 Mean Ox Delivery Rate 04/05 06 97.6 71 18 122/75 93 Room Air 04/05 0000 Room Air 04/04 2222 98.1 68 18 128/60 94 Room Air 04/04 1711 69 110/60 04/04 1455 97.8 62 20 110/60 96 Room Air Intake & Output 04/05 1600 04/05 0804/05 0000 04/04 1600 04/04 0800 04/04 0000 Intake Total 200 200 500 240 340 Output Total 600 700 475 150 250 Balance -400 -500 25 90 90 Intake, Oral 200 200 500 240 340 Number 1 1 0 Bowel Movements Output, Urine 600 700 475 150 250 Patient 179 lb 175 lb Weight Physical Exam: The patient's neurovascular status and musculoskeletal exam are unchanged. The large superficial lesion on the dorsum of the right foot has shown some epithelialization at its margins of about 2 mm. The dorsal eschar over the fifth ray remains rigidly adhered, the remaining open portion of the wound dorsally is mostly fibrous with some granulation tissue and epithelializing margins, and mostly exposed dermis. The unstageable acute loose lesion on the posterior right heel is stabilizing into a dry eschar also with epithelializing margins. There is no edema, no erythema, no fluctuance, no crepitus, no purulence, no new necrosis of skin, no malodor. Current Medications: Current Medications Sig/Salome Start time Last Medication Dose Route Stop Time Status Admin Acetaminophen 1,000 MG Q6P PRN 03/30 0815 AC N/A 1 UNIT IV Albuterol Sulfate See Dose Q4-6 PRN PRN 03/17 194 AC Insts (1) INH Ascorbic Acid 500 MG DAILY 03/18 09 AC 04/04 PO 0910 Aspirin Buffered 81 MG QAM 03/30 1415 AC 04/04 PO 0910 Atorvastatin Calcium 20 MG 17003/24 1700 AC 04/04 PO 1711 Budesonide/ 2 PUF BID 03/17 2100 AC 04/04 Formoterol Fumarate INH 2136 Clopidogrel Bisulfate 75 MG DAILY 03/30 1415 AC 04/04 PO 0910 Cyanocobalamin 1,000 MCG DAILY 03/18 09 AC 04/04 PO 0910 Digoxin 0.125 MG 17003/18 1700 AC 04/04 PO 1711 Ezetimibe 10 MG DAILY 03/18 0900 AC 04/04 PO 0911 Ferric Sodium 125 MG Q48 03/26 1200 AC 04/03 Gluconate Complex IV 04/09 1005 1014 Sodium Chloride 100 ML Ferrous Sulfate 325 MG TID 03/17 2100 AC 04/04 PO 2135 Furosemide 40 MG DAILY 03/26 1327 AC 04/04 PO 0910 Glycerin 2 SPRAY Q2P PRN 03/23 0500 AC 04/01 PO 2012 Insulin Aspart 0 TIDAC 03/29 1700 AC 04/04 SC 1711 Insulin Detemir 3 UNITS BID 03/31 0900 AC 04/04 SC 2136 Levothyroxine Sodium 0.025 MG DAILY AC 03/18 07 AC 04/05 PO 0546 Omeprazole 40 MG DAILY AC 03/30 0700 AC 04/05 PO 0539 Oxycodone/ 1 TAB Q8 PRN 04/03 1043 AC 04/05 Acetaminophen PO 0549 Polyethylene Glycol 17 GM DAILY 03/25 1100 AC 04/04 PO 0910 Povidone Iodine 1 TULIO DAILY 03/29 0900 AC 04/04 TOP 0911 Senna/Docusate Sodium 2 TAB DAILY 03/25 1100 AC 04/04 PO 0910 Sertraline HCl 50 MG DAILY 03/18 09 AC 04/04 PO 0911 Sodium Chloride 2 SPRAY Q4P PRN 04/02 1215 AC MIKHAIL Dose Instructions: (1)Albuterol Sulfate: 1-2 PUF Results Last 48 Hours of Labs: Laboratory Tests 04/05 04/04 0627 0710 Chemistry Sodium (137 - 145 mmol/L) 140 139 Potassium (3.5 - 5.1 mmol/L) 5.1 5.0 Chloride (98 - 107 mmol/L) 105 104 Carbon Dioxide (22 - 30 mmol/L) 27 27 Anion Gap (5 - 16) 8 8 BUN (9 - 20 mg/dL) 42 H 46 H Creatinine (0.7 - 1.2 mg/dL) 1.1 1.2 Estimated GFR (>60 ml/min) > 60 > 60 BUN/Creatinine Ratio (7 - 25 %) 38.2 H 38.3 H Hematology CBC w Diff NO MAN DIFF REQ NO MAN DIFF REQ WBC (4.8 - 10.8 /CUMM) 12.0 H 12.6 H RBC (4.70 - 6.10 /CUMM) 2.67 L 2.78 L Hgb (14.0 - 18.0 G/DL) 7.9 L 8.3 L Hct (42 - 52 %) 24.3 L 25.5 L MCV (80.0 - 94.0 FL) 91.0 91.6 MCH (27.0 - 31.0 PG) 29.7 29.8 MCHC (33.0 - 37.0 G/DL) 32.7 L 32.5 L RDW (11.5 - 14.5 %) 20.7 H 21.1 H Plt Count (130 - 400 /CUMM) 329 320 MPV (7.4 - 10.4 FL) 7.4 7.4 Gran % (42.2 - 75.2 %) 86.3 H 85.4 H Lymphocytes % (20.5 - 51.1 %) 4.3 L 3.5 L Monocytes % (1.7 - 9.3 %) 6.8 8.6 Eosinophils % (0 - 5 %) 2.2 2.5 Basophils % (0.0 - 2.0 %) 0.4 0 Absolute Granulocytes (1.4 - 6.5 /CUMM) 10.4 H 10.8 H Absolute Lymphocytes (1.2 - 3.4 /CUMM) 0.5 L 0.4 L Absolute Monocytes (0.10 - 0.60 /CUMM) 0.8 H 1.1 H Absolute Eosinophils (0.0 - 0.7 /CUMM) 0.3 0.3 Absolute Basophils (0.0 - 0.2 /CUMM) 0 0 Assessment/Plan Assessment/Plan 67-year-old diabetic male with end-stage peripheral arterial disease status post femoral endarterectomy and right lower extremity, with demarcated superficial soft tissue loss over the dorsum of the right foot and a stabilizing unstageable decubitus lesion of the right heel. Patient was seen and evaluated at bedside Betadine dressing was applied to the right foot and unstageable decubitus lesion of the right heel The case was discussed with the primary team prior to my seeing him, and we agreed that he is stable for discharge, preferably a transfer to her short-term rehabilitation facility given his comorbidities. He continues not to exhibit any clinical or radiographic evidence of acute infection in his right foot, I believe most of these changes are residual from the critical limb ischemia he had at the beginning of the admission. Recommend continued decubitus prophylaxis protocol at all times. Patient may weight-bear as tolerated in a flat surgical shoe provided for him in a padded dressing with assistive devices per PT. I will follow up on this patient tomorrow if he is still admitted After discussion with the primary team earlier this morning, I was alerted to the patient's impending discharge. Final recommendations are as follows: Wound care: Betadine soaked gauze dressing to both lesions on the right foot once daily with padded gauze wrap. Decubitus prophylaxis protocol at all times. Weightbearing: Patient may weight-bear as tolerated in a flat surgical shoe and padded dressing with the assistance of a walker as gait trained by PT. Follow-up: The patient is to follow-up with me on a weekly basis at the [facility] wound care center on Thursday through May 04. I informed the patient that after May 04, I will be moving away from the area, and that his care will be transferred to Dr. Sweet within the wound care center thereafter. Core Measures Venous Thromboembolism VTE Risk Factors Age>40 No Mechanical VTE Prophylaxis d/t N/A MechProphylax Ordered No VTE Pharm Prophylaxis d/t NA PharmProphylax ordered
--- NOTE | 2018-04-05 12:25 | PN- Infect Dx ---
Subjective Subjective: Afebrile. He feels well with mild discomfort in the right heel but with no further shortness of breath. Objective Last 24 Hrs of Vital Signs/I&O Vital Signs Date Time Temp Pulse Resp B/P B/P Pulse O2 O2 Flow FiO2 Mean Ox Delivery Rate 04/05 600 97.6 71 18 122/75 93 Room Air 04/05 0000 Room Air 04/04 2222 98.1 68 18 128/60 94 Room Air 04/04 1711 69 110/60 04/04 1455 97.8 62 20 110/60 96 Room Air Intake & Output 04/05 1600 04/05 0800 04/05 0000 Intake Total 200 200 Output Total 600 700 Balance -400 -500 Intake, Oral 200 200 Number 1 Bowel Movements Output, Urine 600 700 Patient 179 lb Weight Physical Exam Other Physical Findings: He appears comfortable in no acute distress Lungs bibasilar crackles Heart regular rhythm with no murmur Extremities right foot dressing intact Results Last 24 Hours of Lab Results: Laboratory Tests 04/05 627 Chemistry Sodium (137 - 145 mmol/L) 140 Potassium (3.5 - 5.1 mmol/L) 5.1 Chloride (98 - 107 mmol/L) 105 Carbon Dioxide (22 - 30 mmol/L) 27 Anion Gap (5 - 16) 8 BUN (9 - 20 mg/dL) 42 H Creatinine (0.7 - 1.2 mg/dL) 1.1 Estimated GFR (>60 ml/min) > 60 BUN/Creatinine Ratio (7 - 25 %) 38.2 H Hematology CBC w Diff NO MAN DIFF REQ WBC (4.8 - 10.8 /CUMM) 12.0 H RBC (4.70 - 6.10 /CUMM) 2.67 L Hgb (14.0 - 18.0 G/DL) 7.9 L Hct (42 - 52 %) 24.3 L MCV (80.0 - 94.0 FL) 91.0 MCH (27.0 - 31.0 PG) 29.7 MCHC (33.0 - 37.0 G/DL) 32.7 L RDW (11.5 - 14.5 %) 20.7 H Plt Count (130 - 400 /CUMM) 329 MPV (7.4 - 10.4 FL) 7.4 Gran % (42.2 - 75.2 %) 86.3 H Lymphocytes % (20.5 - 51.1 %) 4.3 L Monocytes % (1.7 - 9.3 %) 6.8 Eosinophils % (0 - 5 %) 2.2 Basophils % (0.0 - 2.0 %) 0.4 Absolute Granulocytes (1.4 - 6.5 /CUMM) 10.4 H Absolute Lymphocytes (1.2 - 3.4 /CUMM) 0.5 L Absolute Monocytes (0.10 - 0.60 /CUMM) 0.8 H Absolute Eosinophils (0.0 - 0.7 /CUMM) 0.3 Absolute Basophils (0.0 - 0.2 /CUMM) 0 Last 24 Hours of Sadi Results: Right pleural fluid culture April 01 negative Assessment/Plan ID Impression: Overall improved, with his temperatures remaining normal and his white blood cell count further decreased, off antibiotics, with his cultures negative and the recent thoracentesis revealing a transudate, with the culture also negative. He has mild right heel pain secondary to a pressure induced unstageable decubitus. Suggestion: 1. Follow-up pleural fluid cytology 2. Continue to follow off antibiotics
[2018-04-05 12:30] VITALS: BP 122/75
== END 2018-04-05 12:48 | DRG 253 ==
LOC: ERH 11:13 → ERHI 17:43 → 2NB 17:43 → ENRESERV 18:45 → ENTRNSPT 19:15 → EDTRNSPTSTS 19:24 → 2NB 19:39 → CMPTRNSPT 19:47 → 2NB 03-18 12:02 → 1NO 03-18 12:02 → CRI 03-18 12:02 → 2NB 03-18 13:35 → ENRESERV 03-22 14:42 → CRI 03-22 14:44 → ENTRNSPT 03-22 15:45 → EDTRNSPT 03-22 16:01 → EDTRNSPTSTS 03-22 16:01 → CMPTRNSPT 03-22 16:23 → CRI 03-24 12:54 → 1NO 03-25 22:25 → ENPENDDIS 04-05 11:15 → 1NO 04-05 12:48
PROVIDERS: Emergency Medicine; Hospitalist; Internal Medicine; Internal Medicine Adolescent Medicine; Internal Medicine Critical Care Medicine; Internal Medicine Endocrinology, Diabetes & Metabolism; Preventive Medicine Public Health & General Preventive Medicine; Student in an Organized Health Care Education/Training Program
PROC: 30233N1 Transfusion of Nonautologous Red Blood Cells into Peripheral Vein, Percutaneous Approach (ICD-10-PCS; 2018-03-18)
PROC: 04UK0KZ Supplement Right Femoral Artery with Nonautologous Tissue Substitute, Open Approach (ICD-10-PCS; principal; 2018-03-22)
PROC: B40FYZZ Plain Radiography of Right Lower Extremity Arteries using Other Contrast (ICD-10-PCS; principal; 2018-03-22)
PROC: 04CK0ZZ Extirpation of Matter from Right Femoral Artery, Open Approach (ICD-10-PCS; principal; 2018-03-22)
PROC: 2Y41X5Z Packing of Nasal Region using Packing Material (ICD-10-PCS; 2018-03-28)
PROC: 0DJ08ZZ Inspection of Upper Intestinal Tract, Via Natural or Artificial Opening Endoscopic (ICD-10-PCS; 2018-03-29)
PROC: 0W9B3ZZ Drainage of Left Pleural Cavity, Percutaneous Approach (ICD-10-PCS; 2018-04-01)
DX: I70.221 Atherosclerosis of native arteries of extremities with rest pain, right leg (principal); N17.9 Acute kidney failure, unspecified; I13.0 Hypertensive heart and chronic kidney disease with heart failure and stage 1 through stage 4 chronic kidney disease, or unspecified chronic kidney disease; I50.22 Chronic systolic (congestive) heart failure; E87.0 Hyperosmolality and hypernatremia; I45.2 Bifascicular block; K22.10 Ulcer of esophagus without bleeding; I47.2 Ventricular tachycardia; J90 Pleural effusion, not elsewhere classified; K72.90 Hepatic failure, unspecified without coma; E11.51 Type 2 diabetes mellitus with diabetic peripheral angiopathy without gangrene; N18.3 Chronic kidney disease, stage 3 (moderate); J44.9 Chronic obstructive pulmonary disease, unspecified; I25.10 Atherosclerotic heart disease of native coronary artery without angina pectoris; Z95.0 Presence of cardiac pacemaker; E78.5 Hyperlipidemia, unspecified; I25.2 Old myocardial infarction; R32 Unspecified urinary incontinence; Z79.4 Long term (current) use of insulin; E03.9 Hypothyroidism, unspecified; D63.1 Anemia in chronic kidney disease; I25.5 Ischemic cardiomyopathy; I44.0 Atrioventricular block, first degree; R23.8 Other skin changes; R04.0 Epistaxis; R00.1 Bradycardia, unspecified; T44.7X5A Adverse effect of beta-adrenoreceptor antagonists, initial encounter; D72.829 Elevated white blood cell count, unspecified; Z89.422 Acquired absence of other left toe(s); Z95.3 Presence of xenogenic heart valve; Z89.421 Acquired absence of other right toe(s); Z89.412 Acquired absence of left great toe; Z87.891 Personal history of nicotine dependence
CPT/HCPCS: 1NP; 2NBSP; 75657; 84133; 84300; 86160; 87075; CCU; 36415; 36592; 71045; 73552; 73610-RT; 73630-RT; 76775; 78582; 81001; 82436; 82570; 86920; 87040; 87070; 87086; 88304; 88305; 93005; 93010; 93306; 93970; 96374; 97110-GO; 97116-GO; 97162-GP; 97530-GO; A9540; A9558; C1725; J0131; J0690; J1170; J1644; J1815; J1885; J1940; J2001; J3490; J7040; J7042; P9016; Q9967